=== PATIENT | female | born 1995 | race African-American/Black ===

== ENCOUNTER 2017-06-11 16:08 | Emergency (ER) | payer MEDICAID, SELFPAY ==
[2017-06-11 16:09] VITALS: BP 104/66; PULSE 62; RESP 16; TEMP 36.6; O2SAT 98; BMI 18.0
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
== END 2017-06-11 16:35 | disposition home or self-care (01) ==
LOC: ED 16:26
PROVIDERS: Emergency Provider Emergency Medicine
DX: S00.411A Abrasion of right ear, initial encounter (principal); H92.01 Otalgia, right ear; X58.XXXA Exposure to other specified factors, initial encounter; Y93.84 Activity, sleeping; Y92.009 Unspecified place in unspecified non-institutional (private) residence as the place of occurrence of the external cause; Y99.8 Other external cause status
CPT/HCPCS: 99282

== ENCOUNTER 2017-07-26 19:34 | Emergency (ER) | payer MEDICAID, SELFPAY ==
[2017-07-26 19:36] VITALS: BP 155/76; PULSE 91; RESP 15; TEMP 36.6; O2SAT 99; BMI 18.5
== END 2017-07-26 21:39 | disposition left against medical advice (07) ==
LOC: ED 20:53
PROVIDERS: Emergency Provider Emergency Medicine
DX: R42 Dizziness and giddiness (principal)

== ENCOUNTER 2017-09-04 01:07 | Emergency (ER) | payer MEDICAID, SELFPAY ==
[2017-09-04 01:09] VITALS: BP 131/86; PULSE 106; RESP 16; TEMP 36.5; O2SAT 100; BMI 16.8
--- NOTE | 2017-09-04 01:36 | ED.VISSUMM ---
- ER Visit Summary Date of Service: 09/04/17 Chief Complaint: Anxiety History of Present Illness: The patient is a 22 F who presents with anxiety. She complains of stress and has been more anxious over the past 3 days. She states I feel like I am going to have a panic attack. She also states that she has been smoking more the past few days. She complains of a little bit of a sore throat but believes that this may be related to her increased smoking. She is also concerned that she may be dehydrated. She denies any vomiting or diarrhea. Physical Examination: Afebrile vitals are unremarkable Heart regular rate and rhythm Lungs are clear Oropharynx is clear Mucous membranes are moist Test Results: Not indicated Emergency Department Course and Treatment: She does not appear clinically significantly dehydrated. I do not believe she needs an IV or fluids. No vomiting or diarrhea. Her oropharynx is clear. She has no tonsillar enlargement or exudates no uvular deviation she does not have fever or lymphadenopathy. I do not believe this is due to streptococcal pharyngitis. She was given a prescription for Vistaril and referred to the counseling center. She was discharged. Treatment Plan: [] Disposition: Discharge Impression: Anxiety Sore throat This note was generated with [employer] dictation software. It may contain incorrect words, spelling, and punctuation that were not noted in review of the chart prior to signing ED Disposition - Plan for ED Patient: Chief Complaint: Anxiety Referrals: Ethan Valderrama MD [Primary Care Provider] -
--- NOTE | 2017-09-04 01:38 | ED.DEP ---
ED Disposition - Plan for ED Patient: Chief Complaint: Anxiety Instructions: ED Stress React Prescriptions: hydrOXYzine pamoate capsule [Vistaril] 50 mg PO TID PRN PRN #30 cap PRN Reason: Anxiety Referrals: Ethan Valderrama MD [Primary Care Provider] -
--- NOTE | 2017-09-04 01:45 | ED.DEP ---
ED Disposition - Plan for ED Patient: Chief Complaint: Anxiety Instructions: ED Stress React Prescriptions: hydrOXYzine pamoate capsule [Vistaril] 50 mg PO TID PRN PRN #30 cap PRN Reason: Anxiety Referrals: Ethan Valderrama MD [Primary Care Provider] - Counseling,Center [GROUP OF PHYSICIANS] -
[2017-09-04 01:50] VITALS: RESP 18
== END 2017-09-04 01:47 | disposition home or self-care (01) ==
PROVIDERS: Emergency Provider Emergency Medicine; Family Provider Family Medicine; PCP Family Medicine
DX: F41.9 Anxiety disorder, unspecified (principal); J02.9 Acute pharyngitis, unspecified; F17.200 Nicotine dependence, unspecified, uncomplicated; Z11.3 Encounter for screening for infections with a predominantly sexual mode of transmission
CPT/HCPCS: 87491; 87591; 99282

== ENCOUNTER → 2017-09-04 15:05 | Outpatient (CLI) | payer MEDICAID, SELFPAY ==
[2017-09-04 17:36] LABS: Chlamydia Trachomatis by PCR Negative (Negative); Neisserai gonorrhoeae by PCR Negative (Negative); Probe Check PASS; Sample Adequacy Control PASS; Specimen Processing Control PASS
== END ==
PROVIDERS: Visit Provider Obstetrics & Gynecology
DX: Z11.3 Encounter for screening for infections with a predominantly sexual mode of transmission (principal)
CPT/HCPCS: 87491; 87591

== ENCOUNTER → 2017-12-04 13:49 | Outpatient (CLI) | payer MEDICAID, SELFPAY ==
[2017-12-04 17:41] LABS: Chlamydia Trachomatis by PCR Negative (Negative); Neisserai gonorrhoeae by PCR Negative (Negative); Probe Check PASS; Sample Adequacy Control PASS; Specimen Processing Control PASS
== END ==
PROVIDERS: Visit Provider Obstetrics & Gynecology
DX: Z11.3 Encounter for screening for infections with a predominantly sexual mode of transmission (principal)
CPT/HCPCS: 87491; 87591

== ENCOUNTER → 2018-02-06 13:23 | Outpatient (CLI) | payer MEDICAID, SELFPAY ==
[2018-02-12 11:34] LABS: HPV APTIMA, High Risk Negative (Negative)
== END ==
PROVIDERS: Visit Provider Obstetrics & Gynecology
DX: Z12.4 Encounter for screening for malignant neoplasm of cervix (principal)
CPT/HCPCS: 88175; G0145

== ENCOUNTER → 2018-03-20 13:06 | Outpatient (CLI) | payer MEDICAID, SELFPAY ==
[2018-03-20 15:46] LABS: Hematocrit 32.9 % (37-47); Hemoglobin 10.9 g/dl (12.0-15.0); Mean Corp Hgb Conc 33.1 g/gl (32-36); Mean Corpuscular Hgb 28.6 pg (27.0-32.0); Mean Corpuscular Volume 86.4 fL (81-99); Mean Platelet Vol. 11.1 fl (6.2-12.0); Platelet Count 219 K/mm3 (150-450); RBC Distribution Width CV 12.9 % (11.6-14.6); RBC Distribution Width SD 41.4 fl (35.1-43.9); Red Blood Count 3.81 M/mm3 (4.2-5.4); White Blood Count 7.7 K/mm3 (4.4-11.0)
[2018-03-20 15:47] LABS: Scan Indicated on CBC? Y/N NO
== END ==
PROVIDERS: Visit Provider Obstetrics & Gynecology
DX: N93.9 Abnormal uterine and vaginal bleeding, unspecified (principal)
CPT/HCPCS: 36415; 84443; 85027

== ENCOUNTER 2018-04-12 06:42 | Emergency (ER) | payer MEDICAID, SELFPAY ==
[2018-04-12 06:43] VITALS: BP 132/79; PULSE 105; RESP 18; TEMP 36.6; O2SAT 100; BMI 18.7
--- NOTE | 2018-04-12 06:51 | US_ITS ---
STUDY: ULTRASOUND OF THE FEMALE PELVIS - COMPLETE REASON FOR EXAM: Female, 23 years old. Left lower quadrant pain TECHNIQUE: Transvaginal TECHNICAL QUALITY: Adequate. COMPARISON: None. FINDINGS: The uterus is retroverted and is in a midline position. The uterus measures 7.4 x 5.3 x 4.1 cm. Normal uterine cervix. The endometrium measures 2 mm in thickness, and is hyperechoic. There is no demonstrated endometrial mass. There is no demonstrated myometrial mass. The right ovary is visualized. The right ovary measures 4.7 x 3.0 x 2.5 cm. There are multiple follicles of the right ovary without a dominant cyst. There is no visualized right adnexal mass or complex lesion. There is normal arterial and normal venous vascularity. The left ovary is visualized. The left ovary measures 4.8 x 2.8 x 2.7 cm. There are multiple follicles of the left ovary without a dominant cyst. There is no visualized left adnexal mass or complex lesion. There is normal arterial and normal venous vascularity. There is no fluid in the cul-de-sac. US/Transvaginal Non- IMPRESSION: Multiple bilateral peripheral ovarian follicles. This can be seen with polycystic ovarian syndrome and clinical correlation is recommended. Normal Doppler flow demonstrated to both ovaries. Normal uterus. Electronically Signed: Yimi Castro, at 8:14 EST Tel , Service support ,
--- NOTE | 2018-04-12 06:58 | ED.DCSUM_ITS ---
- ER Visit Summary Date of Service: 04/12/18 Chief Complaint: Pain History of Present Illness: The patient is a 23 F with left-sided pelvic pain. Pain started over a week ago. It started on the right and then moved to the left. It feels cramping at times and sharp at other times. She had some recent irregular and heavy bleeding. She took some ibuprofen recently but had no improvement. She has not tried anything else. She had similar symptoms in the past with ovarian cyst. She is planning to follow-up with her OB, Dr. May in about 5 days. Denies any urinary symptoms. Denies any other DIRECTOR TELEVISION symptoms. Denies any GI symptoms. Physical Examination: Afebrile and vital signs unremarkable except for heart rate of 105. She appears comfortable and in no acute distress. Alert and oriented. Abdomen is tender in left pelvic area. No guarding or rebound. No other abnormal findings on exam. Test Results: We will check labs, urine, ultrasound. Emergency Department Course and Treatment: Patient treated with Toradol while awaiting results. Hemoglobin 8.2, down over 2 points in less than a month. BMP normal. Urinalysis unremarkable. test negative. Ultrasound showed a normal uterus and findings consistent with PCOS. I believe that her pain is from ovarian cysts. Patient will be treated with anti-inflammatories. I am concerned about her anemia. She is not currently bleeding, but she said she had vaginal bleeding for most of February until . She had some spotting a couple days ago but is not currently bleeding. Her doctor had told her that if she had continued bleeding she would need a D&C. I spoke with Dr. Logan who was vocational rehabilitation specialist. The patient will follow-up as an outpatient for further care. Return for any symptoms or further bleeding. Treatment Plan: As above Disposition: Discharge Impression: 1. Ovarian cysts 2. Anemia This note was generated with [employer] dictation software. It may contain incorrect words, spelling, and punctuation that were not noted in review of the chart prior to signing ED Disposition - Plan for ED Patient: Chief Complaint: Abd Pain Referrals: Ethan Valderrama MD [STAFF PHYSICIAN] -
[2018-04-12] MEDS: Ketorolac 30 MG/ML Syringe IV (07:06)
[2018-04-12 07:17] LABS: Absolute Lymphocyte Count 2.15 X10^3/ul (0.83-4.51); Absolute Neutrophil Count 3.5 X10^3/uL (2.0-7.7); Basophil# 0.04 X10^3/uL; Basophil% 0.6 % (0-1); Eosinophil# 0.09 X10^3/uL; Eosinophils% 1.4 % (0-5); Hematocrit 25.6 % (37-47); Hemoglobin 8.2 g/dl (12.0-15.0); Lymphocyte # 2.15 X10^3/ul (4.0); Lymphocyte % 34.2 % (19-41); Mean Corpuscular Hgb 24.6 pg (27.0-32.0); Mean Corpuscular Volume 76.9 fL (81-99); Mean Platelet Vol. 8.8 fl (6.2-12.0); Monocyte# 0.52 X10^3/uL; Monocyte% 8.3 % (0-10); Neutrophil # 3.49 X10^3/uL (2.7-7.7); Neutrophil % 55.5 % (47-70); Platelet Count 316 K/mm3 (150-450); RBC Distribution Width CV 16.2 % (11.6-14.6); RBC Distribution Width SD 45.4 fl (35.1-43.9); Red Blood Count 3.33 M/mm3 (4.2-5.4); White Blood Count 6.3 K/mm3 (4.4-11.0)
[2018-04-12 07:18] LABS: POSITIVE COUNT NO; POSITIVE DIFFERENTIAL NO; POSITIVE MORPHOLOGY NO
[2018-04-12 07:25] LABS: Bacteria 0 SEEN /hpf (None Seen); Mucous, Urine 0 SEEN /hpf (<or=2+)
[2018-04-12 07:27] LABS: Anion Gap 8 (5-15); BUN 8 mg/dL (7-18); Calcium,Total 8.5 mg/dL (8.5-10.1); Chloride 109 mmol/L (98-107); Creatinine, Serum 0.88 mg/dL (0.55-1.02); EST Glomerular Filtration Rate 84 mL/min (>60); Est Glom Filt Rate - Afr Amer 102 mL/min (>60); Estimated Creatinine Clearance 77.85 ml/min; Glucose 106 mg/dL (74-106); Potassium 3.7 mmol/L (3.5-5.1); Sodium Level 142 mmol/L (136-145)
[2018-04-12 07:42] LABS: Pregnancy, Serum, hCG Quali. NEGATIVE Negative (0-9 Nonpreg)
[2018-04-12 08:07] LABS: Color, Urine Yellow (Yellow); Glucose, Dipstick Normal (Normal); Ketone-Dipstick Negative (Negative); Leukocyte Esterase-Dipstick 25 /ul (Negative); Nitrite-Dipstick Negative (Negative); Occult Blood-Urine Negative /ul (Negative); Protein-Dipstick 15 mg/dl (Negative); Urine Bilirubin Dipstick Negative (Negative); Urine Clarity Sl. Cloudy (Clear); Urine Urobilinogen Normal (Normal)
[2018-04-12 08:19] LABS: Red Blood Cells-Urine 0 SEEN /hpf (0-5); Squamous Epithelial Cells - UA 5-10 SEEN /hpf (5-10); White Blood Cells 0-5 SEEN /hpf (0-5)
[2018-04-12 09:01] VITALS: RESP 18
--- NOTE | 2018-04-12 09:05 | ED.DEP ---
ED Disposition - Plan for ED Patient: Chief Complaint: Abd Pain Instructions: ED Cyst Ovarian Prescriptions: Ondansetron [Zofran Odt] 4 mg PO Q8H PRN PRN #10 tab PRN Reason: Nausea Ibuprofen [Motrin] 800 mg PO TID PRN PRN #20 tab PRN Reason: Pain Referrals: Fabián May MD [STAFF PHYSICIAN] - Additional Instructions: call Dr. May Saturday. Return to ER for bleeding or any other problems.
--- OUTSIDE RECORDS SUMMARY | 2018-06-06 18:16 | XMS RPT_ITS ---
:1995 Author Organization OHIP Support Name Relationship Address Phone JHONNY GRANGER Unavailable Unavailable + UE Unavailable Unavailable Unavailable JHONNY GRANGER Unavailable Unavailable + UE Unavailable Unavailable Unavailable MICHAEL GRANGER Unavailable [address] + [place] [address] [employer] Unavailable [address] + [place] [address] DEREK GRANGER Unavailable [address] [facility] + [place] [address] MICHAEL GRANGER Unavailable [address] + [place] [address] [employer] Unavailable [address] + [place] [address] MICHAEL GRANGER Unavailable [address] + [place] [address] [employer] Unavailable [address] + [place] [address] MICHAEL GRANGER Unavailable [address] + [place] [address] [employer] Unavailable [address] + [place] [address] MICHAEL GRANGER Unavailable [address] + [place] [address] [employer] Unavailable [address] + [place] [address] MICHAEL GRANGER Unavailable [address] + [place] [address] [facility] Unavailable [address] + [place] [address] MICHAEL GRANGER Unavailable [address] + [place] [address] [facility] Unavailable [address] + [place] [address] MICHAEL GRANGER Unavailable [address] + [place] [address] UE Unavailable Unavailable Unavailable Care Team Providers Name Role Phone PHYSICIAN, NONE Primary Care Unavailable RADHA KIRK MD Attending Unavailable TIFFANY GONZALEZ, DR. DRAKE Attending Unavailable YADI GONZALEZ, DR. AMRCUS Primary Care Unavailable José Valderrama Primary Care Unavailable Dilshad Garza Attending Unavailable Josesito Stevenson Attending Unavailable Primay Care Physicia, No Primary Care Unavailable Primay Care Physicia, No Primary Care Unavailable Lino Hair Attending Unavailable Wilbur Spann Attending Unavailable José Valderrama Primary Care Unavailable Fabián May Attending Unavailable Fabián May Attending Unavailable Fabián May Attending Unavailable Fabián May Attending Unavailable Dilshad Muse Attending Unavailable Primay Care Physicia, No Primary Care Unavailable Fabián May Attending Unavailable PROBLEMS PROBLEMS DATE TYPE CONDITION / CODE ATTENDING STATUS SOURCE 04/14/2018 Unknown N92.6 - Irregular Fabián May Active [place] menstruation, Community unspecified / Hospital N92.6(ICD-10) Repository 02/06/2018 Unknown Z12.4 - Encounter Fabián May Active [place] for screening for Community malignant neoplasm Hospital of cervix / Repository Z12.4(ICD-10) 12/04/2017 Unknown Z11.3 - Encounter Fabián May Active [place] for screening for Community infections with a Hospital predominantly Repository sexual mode of transmission / Z11.3(ICD-10) PROCEDURES PROCEDURES No Procedure Records FoundRESULTS RESULTS CBC-COMPLETE BLOOD CNT Collected: 04/14/2018 Status: F Source: [place] NO DIFF 1:06 PM [facility] TYPE CODE TESTS RESULT OUT OF RANGE REFERENCE UNITS LAB L100.1000 4.4-11.0 K/mm3 Normal WBC 6.5 LAB L100.1200 4.2-5.4 M/mm3 Low RBC 3.03 LAB L100.1300 12.0-15.0 g/dl Low HGB 7.6 LAB L100.1400 37-47 % Low HCT 23.5 LAB L100.1500 81-99 fL Low MCV 77.6 LAB L100.1600 27.0-32.0 pg Low MCH 25.1 LAB L100.1700 32-36 g/gl Normal MCHC 32.3 LAB L100.1810 11.6-14.6 % High RDW CV 17.2 LAB L100.1820 35.1-43.9 fl High RDW SD 46.1 LAB L100.1900 150-450 K/mm3 Normal PLT 286 LAB L100.2000 6.2-12.0 fl Normal MPV 10.0 Performed By: #### L100.0500 #### [facility] [address] [place], [address] EMERGENCY DEPARTMENT Observed: 04/12/2018 Status: F Source: [place] SUMMARY 9:50 AM [facility] REPOSITORY [facility] Medical Records Department [address] [facility] [place] [address] Emergency Department Summary 04/12/18 0656 MR#: [id number] Acct: [id number] Name: MARLON GRANGER CK Rep #: [id number] : 1995 23 From: Dilshad Muse MD PCP: Care Physician, No Primary Status: DEP ER - ER Visit Summary Date of Service: 04/12/18 Chief Complaint: Pain History of Present Illness: The patient is a 23 F with left- sided pelvic pain. Pain started over a week ago. It started on the right and then moved to the left. It feels cramping at times and sharp at other times. She had some recent irregular and heavy bleeding. She took some ibuprofen recently but had no improvement. She has not tried anything else. She had similar symptoms in the past with ovarian cyst. She is planning to follow-up with her OB, Dr. May in about 5 days. Denies any urinary symptoms. Denies any other POT OPERATOR symptoms. Denies any GI symptoms. Physical Examination: Afebrile and vital signs unremarkable except for heart rate of 105. She appears comfortable and in no acute distress. Alert and oriented. Abdomen is tender in left pelvic area. No guarding or rebound. No other abnormal findings on exam. Test Results: We will check labs, urine, ultrasound. Emergency Department Course and Treatment: Patient treated with Toradol while awaiting results. Hemoglobin 8.2, down over 2 points in less than a month. BMP normal. Urinalysis unremarkable. test negative. Ultrasound showed a normal uterus and findings consistent with PCOS. I believe that her pain is from ovarian cysts. Patient will be treated with anti-inflammatories. I am concerned about her anemia. She is not currently bleeding, but she said she had vaginal bleeding for most of February until . She had some spotting a couple days ago but is not currently bleeding. Her doctor had told her that if she had continued bleeding she would need a D AND C. I spoke with Dr. Logan who was pressurization mechanic. The patient will follow-up as an outpatient for further care. Return for any symptoms or further bleeding. Treatment Plan: As above Disposition: Discharge Impression: 1. Ovarian cysts 2. Anemia This note was generated with Reveal Dataation software. It may contain incorrect words, spelling, and punctuation that were not noted in review of the chart prior to signing ED Disposition - Plan for ED Patient: Chief Complaint: Abd Pain Referrals: Ethan Valderrama MD [STAFF PHYSICIAN] - What to do if you have Problems For any increased pain, shortness of breath, bleeding, nausea or vomiting, chest pain, or any unexpected problems, contact your Primary Care Provider. Call [facility] ([phone]) or report to the closest Emergency Room. Call 911 if necessary. 04/12/18 0950 <Electronically signed by Dilshad Muse MD> Date Dilshad Muse MD Cosigner Signature (If Indicated): Date CC: No Primary Care Physician DISCHARGE INSTRUCTION Observed: 04/12/2018 Status: F Source: [place] 9:50 AM [facility] REPOSITORY [facility] Medical Records Department [address] [place] [address] Discharge Instruction 04/12/18 09 MR#: [id number] Acct: [id number] Name: GRANGERMARLON CK Rep #: [id number] : 1995 23 From: Dilshad Muse MD PCP: Care Physician, No Primary Status: DEP ER ED Disposition - Plan for ED Patient: Chief Complaint: Abd Pain Instructions: ED Cyst Ovarian Prescriptions: Ondansetron [Zofran Odt] 4 mg PO Q8H PRN PRN #10 tab PRN Reason: Nausea Ibuprofen [Motrin] 800 mg PO TID PRN PRN #20 tab PRN Reason: Pain Referrals: Fabián May MD [STAFF PHYSICIAN] - Additional Instructions: call Dr. May Saturday. Return to ER for bleeding or any other problems. What to do if you have Problems For any increased pain, shortness of breath, bleeding, nausea or vomiting, chest pain, or any unexpected problems, contact your Primary Care Provider. Call [facility] ([phone]) or report to the closest Emergency Room. Call 911 if necessary. 04/12/18 0950 <Electronically signed by Dilshad Muse MD> Date Dilshad Muse MD Cosigner Signature (If Indicated): Date CC: No Primary Care Physician URINALYSIS, COMPLETE Collected: 04/12/2018 Status: F Source: [place] 7:15 AM [facility] REPOSITORY Order Comment: How was Urine Obtained? CLEAN CATCH TYPE CODE TESTS RESULT OUT OF RANGE REFERENCE UNITS LAB L400.3000 Yellow COLOR Normal Yellow LAB L400.3050 Clear Normal CLARITY Sl. Cloudy LAB L400.3200 Normal mg/dl Normal GLUCOSE, UR Normal LAB L400.3300 Negative mg/dL Normal BILIRUBIN URINE Negative LAB L400.3400 Negative mg/dl Normal KETONE UR Negative LAB L400.3465 1.002-1.030 Normal SP.GR. DIPSTX 1.020 LAB L400.3550 5.0 - 8.0 pH UR Normal 5.0 LAB L400.3600 Negative mg/dl High PROT 15 DIPSTX LAB L400.3700 Normal mg/dl Normal UROBILI Normal LAB L400.3750 Negative Normal NITRITE UR Negative LAB L400.3780 Negative /ul Normal OCCULT BLOOD-UR Negative LAB L400.3800 Negative /ul High LEUK 25 ESTERASE LAB L400.4050 0-5 /hpf WBC Normal 0-5 SEEN LAB L400.4100 0-5 /hpf 0 Normal RBC-UA SEEN LAB L400.4150 5-10 /hpf SQUAM Normal EPI 5-10 SEEN LAB L400.4300 None Seen /hpf 0 Normal BACTERIA SEEN LAB L400.4350 <or=2+ /hpf 0 Normal MUCUS, URINE SEEN Performed By: #### L400.0001 #### [facility] [address] [place], [address] CBC W/DIFF, AUTOMATED Collected: 04/12/2018 Status: F Source: [place] 7:02 AM [facility] REPOSITORY TYPE CODE TESTS RESULT OUT OF RANGE REFERENCE UNITS LAB L100.1000 4.4-11.0 K/mm3 Normal WBC 6.3 LAB L100.1200 4.2-5.4 M/mm3 Low RBC 3.33 LAB L100.1300 12.0-15.0 g/dl Low HGB 8.2 LAB L100.1400 37-47 % Low HCT 25.6 LAB L100.1500 81-99 fL Low MCV 76.9 LAB L100.1600 27.0-32.0 pg Low MCH 24.6 LAB L100.1700 32-36 g/gl Normal MCHC 32.0 LAB L100.1810 11.6-14.6 % High RDW CV 16.2 LAB L100.1820 35.1-43.9 fl High RDW SD 45.4 LAB L100.1900 150-450 K/mm3 Normal PLT 316 LAB L100.2000 6.2-12.0 fl Normal MPV 8.8 LAB L100.2100 47-70 % Normal NEUT% 55.5 LAB L100.2200 19-41 % Normal LY% 34.2 LAB L100.2300 0-10 % Normal MONO% 8.3 LAB L100.2400 0-5 % Normal EO% 1.4 LAB L100.2500 0-1 % Normal BASO% 0.6 LAB L100.2550 0.0-0.9 % Normal IM GRAN % 0.000 Result Comment: IG% - Immature Granulocytes (promyelocytes, myelocytes and metamyelocytes) > 1% indicates that a LEFT SHIFT is Present. LAB L100.2620 2.0-7.7 X10 3/uL Normal Absolute Neut 3.5 LAB L100.2720 0.83-4.51 X10 3/ul Normal Absolute Lymph 2.15 Performed By: #### L100.0100 #### [facility] [address] [place], [address] BASIC METABOLIC Collected: 04/12/2018 Status: F Source: [place] PROFILE (BMP) 7:02 AM [facility] REPOSITORY TYPE CODE TESTS RESULT OUT OF RANGE REFERENCE UNITS LAB L501.0100 74-106 mg/dL Normal GLU 106 Result Comment: Fasting Glucose result from 100 to 125 mg/dL suggests IMPAIRED HOMEOSTASIS per A.D.A. criteria. Please note revised GLUCOSE reference range effective 2017. LAB L501.1000 7-18 mg/dL Normal BUN 8 LAB L501.1100 0.55-1.02 mg/dL Normal CREAT,SERUM 0.88 Result Comment: The validity of the calculated GFR AND GFRAA in patients over 70 years has not been determined. Clinical correlation is essential. LAB L501.1110 >60 mL/min Normal EST GFR 84 Result Comment: Non- GFR Calc LAB L501.1115 >60 mL/min Normal EST GFR - AA 102 Result Comment: GFR Calc LAB L501.1255 ml/min Normal Estimated CRCL 77.85 LAB L501.1300 10-20 RATIO Low BUN/CRE 9.0 LAB L501.2200 8.5-10 mg/dL Normal .1 CA 8.5 LAB L501.5300 136-14 mmol/L Normal 5 NA 142 LAB L501.5600 3.5-5. mmol/L Normal 1 K 3.7 LAB L501.5900 98-107 mmol/L High CL 109 LAB L501.6100 21.0-3 mmol/L Normal 2.0 CO2 25.0 LAB L501.6200 5-15 Normal GAP 8 Performed By: #### L500.2500 #### [facility] [address] [place], [address] ,SERUM,HCG QUALI. Collected: Status: F Source: [place] 04/12/2018 7:02 AM [facility] REPOSITORY TYPE CODE TESTS RESULT OUT OF REFERENCE UNITS RANGE LAB L700.7000 0-9 Nonpreg Negative Normal HCGSQUAL NEGATIVE LAB L700.6700 =>Qualitative mIU/mL Normal HCG Qual < 1 triggr Performed By: #### L700.6800 #### [facility] [address] [place], [address] TRANSVAGINAL Observed: 04/12/2018 Status: F Source: [place] NON- 6:54 AM [facility] REPOSITORY [facility] Imaging Services [address] [place] [address] Transvaginal Non- MR#: [id number] Acct: [id number] Name: MARLON GRANGER CK Rep #: [id number] : 1995 F 23 From: Yimi Castro MD PCP: Care Physician, No Primary Status: REG ER Study: Transvaginal Non- Date of Exam: 04/12/18 Exam# [id number] Ordering Dr: Dilshad Muse MD STUDY: ULTRASOUND OF THE FEMALE PELVIS - COMPLETE REASON FOR EXAM: Female, 23 years old. Left lower quadrant pain TECHNIQUE: Transvaginal TECHNICAL QUALITY: Adequate. COMPARISON: None. FINDINGS: The uterus is retroverted and is in a midline position. The uterus measures 7.4 x 5.3 x 4.1 cm. Normal uterine cervix. The endometrium measures 2 mm in thickness, and is hyperechoic. There is no demonstrated endometrial mass. There is no demonstrated myometrial mass. The right ovary is visualized. The right ovary measures 4.7 x 3.0 x 2.5 cm. There are multiple follicles of the right ovary without a dominant cyst. There is no visualized right adnexal mass or complex lesion. There is normal arterial and normal venous vascularity. The left ovary is visualized. The left ovary measures 4.8 x 2.8 x 2.7 cm. There are multiple follicles of the left ovary without a dominant cyst. There is no visualized left adnexal mass or complex lesion. There is normal arterial and normal venous vascularity. There is no fluid in the cul-de-sac. US/Transvaginal Non- IMPRESSION: Multiple bilateral peripheral ovarian follicles. This can be seen with polycystic ovarian syndrome and clinical correlation is recommended. Normal Doppler flow demonstrated to both ovaries. Normal uterus. Electronically Signed: Yimi Castro, at 8:14 EST Tel , Service support , CC: No Primary Care Physician; Dilshad Muse MD Risk Analyst: Signed CBC-COMPLETE BLOOD CNT Collected: 03/20/2018 Status: F Source: [place] NO DIFF 1:08 PM [facility] REPOSITORY TYPE CODE TESTS RESULT OUT OF RANGE REFERENCE UNITS LAB L100.1000 4.4-11.0 K/mm3 Normal WBC 7.7 LAB L100.1200 4.2-5.4 M/mm3 Low RBC 3.81 LAB L100.1300 12.0-15.0 g/dl Low HGB 10.9 LAB L100.1400 37-47 % Low HCT 32.9 LAB L100.1500 81-99 fL Normal MCV 86.4 LAB L100.1600 27.0-32.0 pg Normal MCH 28.6 LAB L100.1700 32-36 g/gl Normal MCHC 33.1 LAB L100.1810 11.6-14.6 % Normal RDW CV 12.9 LAB L100.1820 35.1-43.9 fl Normal RDW SD 41.4 LAB L100.1900 150-450 K/mm3 Normal PLT 219 LAB L100.2000 6.2-12.0 fl Normal MPV 11.1 Performed By: #### L100.0500 #### [facility] [address] [place], [address] THYROID STIM HORMONE Collected: 03/20/2018 Status: F Source: [place] (TSH) 1:08 PM [facility] REPOSITORY TYPE CODE TESTS RESULT OUT OF RANGE REFERENCE UNITS LAB L501.9520 0.358-3.74 uIU/mL Normal TSH 1.10 Performed By: #### L501.9520 #### [facility] [address] [place], [address] CTPCR Collected: 03/18/2018 Status: F Source: [facility] 6:48 PM [facility] REPOSITORY TYPE CODE TESTS RESULT OUT OF REFERENCE UNITS RANGE LAB SCCTPCR(SAM NC) Chlam Genital Female Source LAB CTPCR1(LOIN Negative C) Negative C.trachomati s PCR Result Comment: Molecular (PCR) assay performed on the Ritchie Natalia 4800 system. LAB CTINT(LOINC) See CT Interp N C. trachomatis Interp Result Comment: C. trachomatis DNA not detected. Specimen is presumptive negative for C. trachomatis. A negative result does not preclude C. trachomatis infection because results depend on adequate specimen collection, absence of inhibitors, and sufficient DNA to be detected. See CT Interp N Performed By: #### NGPCR1, CTPCR #### [place] [address] NGPCR Collected: 03/18/2018 Status: F Source: [facility] 6:48 PM [facility] REPOSITORY TYPE CODE TESTS RESULT OUT OF REFERENCE UNITS RANGE LAB GCSRC(LOIN C) GC PCR Source Genital Female LAB NGPCR(LOIN Negative C) N. gonorrhoeae (PCR) Negative Result Comment: Molecular (PCR) assay performed on the [employer] Natalia 4800 System. LAB NGINT(LOINC) See NG Interp N N. gonorrhoeae Interp Result Comment: N. gonorrhoeae DNA not detected. Specimen is presumptive negative for N. gonorrhoeae. A negative result does not preclude Neisseria gonorrhoeae infection because results depend on adequate specimen collection, absence of inhibitors, and sufficient DNA to be detected. See NG Interp N Performed By: #### NGPCR1, CTPCR #### [place] [address] UA Collected: 03/18/2018 Status: F Source: [facility] 6:25 PM [facility] REPOSITORY TYPE CODE TESTS RESULT OUT OF RANGE REFERENCE UNITS LAB SPCUA(SAM NC) UA Specimen Type Clean Catch LAB CLRUA(SAM NC) UA Color Yellow LAB APPUA(SAM Clear NC) UA Appear Unknown Cloudy LAB SGUA(LOIN C) UA Spec Grav 1.025 LAB GLUA(LOIN Negative mg/dL C) UA Glucose Negative LAB BILUA(SAM Negative NC) UA Bili Negative LAB KETUA(SAM Negative mg/dL NC) UA Ketones Negative LAB BLDUA(SAM Negative NC) UA Blood Unknown Large LAB PHUA(LOIN C) UA pH 6.0 LAB PROUA(SAM Negative mg/dL NC) UA Protein Negative LAB UROUA(SAM E.U./dL NC) UA Urobilinogen 0.2 LAB NITUA(SAM Negative NC) UA Nitrite Negative LAB LEUUA(SAM Negative NC) UA Leuk Est Negative Performed By: #### UA, PREGU, UAMICAO #### [address] [address] .URINALYSIS MICROSCOPIC Collected: 03/18/2018 Status: F Source: [facility] [employer] 6:25 [facility] REPOSITORY TYPE CODE TESTS RESULT OUT OF RANGE REFERENCE UNITS LAB WBCUA(LOIN None Seen /hpf C) UA WBC None Seen LAB RBCUA(LOIN None Seen /hpf C) Unknown UA RBC LOADED LAB EPIUA(LOIN None Seen /hpf C) Unknown UA Squam Epithelial 0-5 Performed By: #### UA, PREGU, UAMICAO #### [address] [address] PREGU Collected: 03/18/2018 Status: F Source: [facility] 6:25 [facility] REPOSITORY TYPE CODE TESTS RESULT OUT OF RANGE REFERENCE UNITS LAB PREGU(LOIN C) Test Negative Urine LAB PRUG1(LOIN C) Unknown test HCG not (u) int detected. Performed By: #### UA, PREGU, UAMICAO #### [address] [address] PAP IG HPV HR Collected: 02/06/2018 Status: F Source: [place] APTIMA 11:45 AM [facility] REPOSITORY Order Comment: CYTOLOGY INFORMATION: - CLINICAL INFORMATION: - DATE LMP/MENOPAUSE: 01/03/18 LMP - COLLECTION VIAL: Thin Prep Vial - POT OPERATOR SOURCE: CERVICAL/ENDOCERVICAL - COLLECTION TECHNIQUE: BRUSH/SPATULA Specimen Comment: [id number] Specimen Comment: Source.............Cervix;Endocervix Specimen Comment: LMP / Prev Treat...[id number] Specimen Comment: No. of containers..01 ThinPrep Vial TYPE CODE TESTS RESULT OUT OF REFERENCE UNITS RANGE LAB L7400.0800 . High DIAGN Comment Result Comment: EPITHELIAL CELL ABNORMALITY. ATYPICAL SQUAMOUS CELLS OF UNDETERMINED SIGNIFICANCE. LAB L7400.0900 . Normal ADEQ Comment Result Comment: Satisfactory for evaluation. Endocervical and/or squamous metaplastic cells (endocervical component) are present. LAB L7400.1300 . High RECOMM Comment Result Comment: Suggest follow up as clinically appropriate. LAB L7400.1400 . Normal PERFORM Comment Result Comment: Albert Mayers, Spindle Plumber (ASCP) LAB L7400.1700 . Normal SIGN Comment Result Comment: Milo Morrison MD, Pathologist LAB L7400.1720 . Normal Path prov. Comment ICD9 Result Comment: R87.610 LAB L7400.2575 . Normal TEST METHOD Comment Result Comment: This liquid based ThinPrep(R) pap test was screened with the use of an image guided system. LAB L7400.2600 . Normal . COMM LAB L7400.2700 . Normal PAPSMR Comment Result Comment: The Pap smear is a screening test designed to aid in the detection of premalignant and malignant conditions of the uterine cervix. It is not a diagnostic procedure and should not be used as the sole means of detecting cervical cancer. Both false-positive and false-negative reports do occur. LAB L7400.2760 Negative Normal HPV APTIMA, Negative HR Result Comment: This test detects fourteen high-risk HPV types (16/18/31/33/35/39/45/ 51/52/56/58/59/66/68) without differentiation. Performed at: [address] [id number] Software Design Analyst: Sultana Church MD, Phone: [phone] Performed at: =[address] [id number] Software Design Analyst: Sultana Church MD, Phone: [phone] Performed By: #### L7400.0377 #### [facility] (refer to report for specific site) refer to report for address and phone number CT/NG [facility] BY PCR Collected: 12/04/2017 Status: F Source: [place] 10:20 AM [facility] REPOSITORY TYPE CODE TESTS RESULT OUT OF RANGE REFERENCE UNITS LAB L8200.2100 Negative Normal Chlam Negative Trac PCR LAB L8200.2200 Negative Normal NG by Negative PCR Performed By: #### L8200.1999 #### [facility] [address] [place], [place], [address] CT/NG [facility] BY PCR Collected: 09/04/2017 Status: F Source: [place] 2:35 PM [facility] REPOSITORY TYPE CODE TESTS RESULT OUT OF RANGE REFERENCE UNITS LAB L8200.2100 Negative Normal Chlam Negative Trac PCR LAB L8200.2200 Negative Normal NG by Negative PCR Performed By: #### L8200.1999 #### [facility] [place], [address] DISCHARGE INSTRUCTION Observed: 09/04/2017 Status: F Source: [place] 1:46 AM [facility] Medical Records Department [address] [place] [address] Discharge Instruction 09/04/17 0145 MR#: [id number] Acct: [id number] Name: MARLON GRANGER CK Rep #: [id number] : 1995 22 From: Wilbur Spann MD PCP: José Valderrama MD Status: REG ER ED Disposition - Plan for ED Patient: Chief Complaint: Anxiety Instructions: ED Stress React Prescriptions: hydrOXYzine pamoate capsule [Vistaril] 50 mg PO TID PRN PRN #30 cap PRN Reason: Anxiety Referrals: Ethan Valderrama MD [Primary Care Provider] - Counseling,Center [GROUP OF PHYSICIANS] - What to do if you have Problems For any increased pain, shortness of breath, bleeding, nausea or vomiting, chest pain, or any unexpected problems, contact your Primary Care Provider. Call [facility] ([phone]) or report to the closest Emergency Room. Call 911 if necessary. 09/04/17 0146 <Electronically signed by Wilbur Spann MD> Date Wilbur Spann MD Cosigner Signature (If Indicated): Date CC: José Valderrama MD EMERGENCY DEPARTMENT Observed: 09/04/2017 Status: F Source: [place] SUMMARY 1:38 AM [facility] REPOSITORY [facility] Medical Records Department [address] [place] [address] Emergency Department Summary 09/04/17 0136 MR#: [id number] Acct: [id number] Name: MARLON GRANGER Rep #: [id number] : 1995 22 From: Wilbur Spann MD PCP: José Valderrama MD Status: PRE ER - ER Visit Summary Date of Service: 09/04/17 Chief Complaint: Anxiety History of Present Illness: The patient is a 22 F who presents with anxiety. She complains of stress and has been more anxious over the past 3 days. She states I feel like I am going to have a panic attack. She also states that she has been smoking more the past few days. She complains of a little bit of a sore throat but believes that this may be related to her increased smoking. She is also concerned that she may be dehydrated. She denies any vomiting or diarrhea. Physical Examination: Afebrile vitals are unremarkable Heart regular rate and rhythm Lungs are clear Oropharynx is clear Mucous membranes are moist Test Results: Not indicated Emergency Department Course and Treatment: She does not appear clinically significantly dehydrated. I do not believe she needs an IV or fluids. No vomiting or diarrhea. Her oropharynx is clear. She has no tonsillar enlargement or exudates no uvular deviation she does not have fever or lymphadenopathy. I do not believe this is due to streptococcal pharyngitis. She was given a prescription for Vistaril and referred to the counseling center. She was discharged. Treatment Plan: [] Disposition: Discharge Impression: Anxiety Sore throat This note was generated with Nethub dictation software. It may contain incorrect words, spelling, and punctuation that were not noted in review of the chart prior to signing ED Disposition - Plan for ED Patient: Chief Complaint: Anxiety Referrals: Ethan Valderrama MD [Primary Care Provider] - What to do if you have Problems For any increased pain, shortness of breath, bleeding, nausea or vomiting, chest pain, or any unexpected problems, contact your Primary Care Provider. Call [facility] ([phone]) or report to the closest Emergency Room. Call 911 if necessary. 09/04/17137 <Electronically signed by Wilbur Spann MD> Date Wilbur Spann MD Cosigner Signature (If Indicated): Date CC: No Primary Care Physician; José Valderrama MD DISCHARGE INSTRUCTION Observed: 09/04/2017 Status: F Source: FOLSOM 1:38 AM [facility] REPOSITORY [facility] Medical Records Department [address] [facility] [place] [address] Discharge Instruction 09/04/17137 MR#: [id number] Acct: [id number] Name: GRANGERMARLON CK Rep #: [id number] : 1995 22 From: Wilbur Spann MD PCP: José Valderrama MD Status: REG ER ED Disposition - Plan for ED Patient: Chief Complaint: Anxiety Instructions: ED Stress React Prescriptions: hydrOXYzine pamoate capsule [Vistaril] 50 mg PO TID PRN PRN #30 cap PRN Reason: Anxiety Referrals: Ethan Valderrama MD [Primary Care Provider] - What to do if you have Problems For any increased pain, shortness of breath, bleeding, nausea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
== END 2018-04-12 09:40 | disposition home or self-care (01) ==
PROVIDERS: Emergency Provider Emergency Medicine
DX: N83.209 Unspecified ovarian cyst, unspecified side (principal); D64.9 Anemia, unspecified; Z72.0 Tobacco use; Z79.899 Other long term (current) drug therapy
CPT/HCPCS: 76830; 80048; 81001; 84703; 85025; 93976; 96374; 99283; A4216

== ENCOUNTER → 2018-04-14 09:45 | Outpatient (CLI) | payer MEDICAID, SELFPAY ==
[2018-04-12 06:43] VITALS: BMI 18.7
[2018-04-14 13:31] LABS: Hematocrit 23.5 % (37-47); Hemoglobin 7.6 g/dl (12.0-15.0); Mean Corp Hgb Conc 32.3 g/gl (32-36); Mean Corpuscular Hgb 25.1 pg (27.0-32.0); Mean Corpuscular Volume 77.6 fL (81-99); Platelet Count 286 K/mm3 (150-450); RBC Distribution Width CV 17.2 % (11.6-14.6); RBC Distribution Width SD 46.1 fl (35.1-43.9); Red Blood Count 3.03 M/mm3 (4.2-5.4); White Blood Count 6.5 K/mm3 (4.4-11.0)
[2018-04-14 13:32] LABS: Scan Indicated on CBC? Y/N NO
--- OUTSIDE RECORDS SUMMARY | 2018-06-07 14:22 | XMS RPT_ITS ---
:1995 Author Organization OHIP Support Name Relationship Address Phone JHONNY GRANGER Unavailable Unavailable + UE Unavailable Unavailable Unavailable JHONNY GRANGER Unavailable Unavailable + UE Unavailable Unavailable Unavailable MICHAEL GRANGER Unavailable [address] + [place] [address] [employer] Unavailable [address] + [place] [address] DEREK GRANGER Unavailable [address] [facility] + [place] [address] MICHAEL GRANGER Unavailable [address] + [place] [address] [employer] Unavailable [address] + [place] [address] MICHAEL GRANGER Unavailable [address] + [place] [address] [employer] Unavailable [address] + [place] [address] MICHAEL GRANGER Unavailable [address] + [place] [address] [employer] Unavailable [address] + [place] [address] MICHAEL GRANGER Unavailable [address] + [place] [address] [employer] Unavailable [address] + [place] [address] MICHAEL GRANGER Unavailable [address] + [place] [address] [facility] Unavailable [address] + [place] [address] MICHAEL GRANGER Unavailable [address] + [place] [address] [facility] Unavailable [address] + [place] [address] GRANGERMICHAEL Unavailable [address] + [place] [address] UE Unavailable Unavailable Unavailable Care Team Providers Name Role Phone REAGAN ANDRES, RADHA Morrow Attending Unavailable PHYSICIAN, NONE Primary Care Unavailable TIFFANY GONZALEZ, DR. DRAKE Attending Unavailable YADI GONZALEZ, DR. MARCUS Primary Care Unavailable José Valderrama Primary Care [...] Unknown N92.6 - Irregular Fabián May Active [place] menstruation, Community unspecified / Hospital N92.6(ICD-10) Repository [...] MPV 10.0 Performed By: #### L100.0500 #### [facility] [address] [place], [address] EMERGENCY DEPARTMENT Observed: 04/12/2018 Status: F Source: [place] SUMMARY 9:50 AM [facility] [place] [facility] Medical Records Department [address] [facility] [place] [address] Emergency Department Summary 04/12/18 0656 MR#: [id number] Acct: [id number] Name: MARLON GRANGER CK Rep #: [id number] : 1995 23 From: Dilshad Muse MD [...] Denies any urinary symptoms. 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 Denies any GI symptoms. Physical Examination: [...] I spoke with Dr. Logan who was applications coordinator. The patient will follow-up as an outpatient for further care. Return for any symptoms or further bleeding. Treatment Plan: As above Disposition: Discharge Impression: 1. Ovarian cysts 2. Anemia This note was generated with MOOIation software. It may contain incorrect words, spelling, [...] your Primary Care Provider. Call [facility] ([phone]) or report to the closest Emergency Room. Call 911 if necessary. 04/12/18 0950 <Electronically signed by Dilshad Muse MD> Date Dilshad Muse MD Cosigner Signature (If Indicated): Date CC: No Primary Care Physician DISCHARGE INSTRUCTION Observed: 04/12/2018 Status: F Source: [place] 9:50 AM [facility] [place] [facility] Medical Records Department [address] [place] [address] Discharge Instruction 04/12/18 09 MR#: [id number] Acct: [id number] Name: GRANGERMARLON CK Rep #: [id number] : 1995 23 From: Dilshad Muse MD [...] your Primary Care Provider. Call [facility] ([phone]) or report to the closest Emergency Room. Call 911 if necessary. 04/12/18 0950 <Electronically signed by Dilshad Muse MD> Date Dilshad Muse MD Cosigner Signature (If Indicated): Date CC: No Primary Care Physician URINALYSIS, COMPLETE Collected: 04/12/2018 Status: F Source: [place] 7:15 AM [facility] [place] Order Comment: How was Urine Obtained? [...] URINE SEEN Performed By: #### L400.0001 #### [facility] [address] [place], [address] CBC W/DIFF, AUTOMATED Collected: 04/12/2018 Status: F Source: [place] 7:02 AM [facility] [place] TYPE CODE TESTS RESULT OUT OF [...] Lymph 2.15 Performed By: #### L100.0100 #### [facility] [address] [facility], [address] BASIC METABOLIC Collected: 04/12/2018 Status: F Source: [place] PROFILE (BMP) 7:02 AM [facility] [place] TYPE CODE TESTS RESULT OUT OF [...] GAP 8 Performed By: #### L500.2500 #### [facility] [address] [place], [address] ,SERUM,HCG QUALI. Collected: Status: F Source: [place] 04/12/2018 7:02 AM [facility] [place] TYPE CODE TESTS RESULT OUT OF REFERENCE UNITS RANGE LAB L700.7000 0-9 Nonpreg Negative Normal HCGSQUAL NEGATIVE LAB L700.6700 =>Qualitative mIU/mL Normal HCG Qual < 1 triggr Performed By: #### L700.6800 #### [facility] [address] [place], [address] TRANSVAGINAL Observed: 04/12/2018 Status: F Source: [place] NON- 6:54 AM [facility] [place] [facility] Imaging Services [address] [place] [address] Transvaginal Non- MR#: [id number] Acct: [id number] Name: MARLON GRANGER CK Rep #: [id number] : 1995 F 23 From: Yimi Castro MD PCP: Care Physician, No Primary Status: REG ER Study: Transvaginal Non- Date of Exam: 04/12/18 Exam# [id number] Ordering Dr: Dilshad Muse MD STUDY: ULTRASOUND [...] No Primary Care Physician; Dilshad Muse MD Psychology Intern: Signed CBC-COMPLETE BLOOD CNT Collected: 03/20/2018 Status: F Source: [place] NO DIFF 1:08 PM [facility] [place] TYPE CODE TESTS RESULT OUT OF [...] MPV 11.1 Performed By: #### L100.0500 #### [facility] [address] [place], [address] THYROID STIM HORMONE Collected: 03/20/2018 Status: F Source: [place] (TSH) 1:08 PM [facility] [place] TYPE CODE TESTS RESULT OUT OF RANGE REFERENCE UNITS LAB L501.9520 0.358-3.74 uIU/mL Normal TSH 1.10 Performed By: #### L501.9520 #### [facility] [address] [place], [address] CTPCR Collected: 03/18/2018 Status: F Source: [facility] 6:48 PM [facility] REPOSITORY TYPE CODE TESTS RESULT OUT OF [...] N Performed By: #### NGPCR1, CTPCR #### [place] [address] NGPCR Collected: 03/18/2018 Status: F Source: [facility] 6:48 PM [facility] REPOSITORY TYPE CODE TESTS RESULT OUT OF [...] N Performed By: #### NGPCR1, CTPCR #### [place] [address] UA Collected: 03/18/2018 Status: F Source: [facility] 6:25 PM [facility] REPOSITORY TYPE CODE TESTS RESULT OUT OF [...] Performed By: #### UA, PREGU, UAMICAO #### [address] [address] .URINALYSIS MICROSCOPIC Collected: 03/18/2018 Status: F Source: [facility] [employer] 6:25 [facility] REPOSITORY TYPE CODE TESTS RESULT OUT OF RANGE REFERENCE UNITS LAB WBCUA(LOIN None Seen /hpf C) UA WBC None Seen LAB RBCUA(LOIN None Seen /hpf C) Unknown UA RBC LOADED LAB EPIUA(LOIN None Seen /hpf C) Unknown UA Squam Epithelial 0-5 Performed By: #### UA, PREGU, UAMICAO #### [address] [address] PREGU Collected: 03/18/2018 Status: F Source: [facility] 6:25 [facility] EMERGENCY DEPARTMENT REPOSITORY TYPE CODE TESTS RESULT OUT OF RANGE REFERENCE UNITS LAB PREGU(LOIN C) Test Negative Urine LAB PRUG1(LOIN C) Unknown test HCG not (u) int detected. 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 of containers..01 ThinPrep Vial [...] Normal PERFORM Comment Result Comment: Albert Mayers, Supervisor Computer Operations (ASCP) LAB L7400.1700 . Normal SIGN Comment [...] types (16/18/31/33/35/39/45/ 51/52/56/58/59/66/68) without differentiation. Performed at: [address] [id number] Fixed Capital Clerk: Sultana Church MD, Phone: [phone] Performed at: =[address] [id number] Fixed Capital Clerk: Sultana Church MD, Phone: [phone] Performed By: #### L7400.0377 #### [facility] (refer to report for specific site) refer to report for address and phone number CT/NG W[facility] BY PCR Collected: 12/04/2017 Status: F Source: [place] 10:20 AM [facility] [place] TYPE CODE TESTS RESULT OUT OF RANGE REFERENCE UNITS LAB L8200.2100 Negative Normal Chlam Negative Trac PCR LAB L8200.2200 Negative Normal NG by Negative PCR Performed By: #### L8200.1999 #### [facility] [address] [place], [place], [address] CT/NG WCH BY PCR Collected: 09/04/2017 Status: F Source: [place] 2:35 PM [facility] [place] TYPE CODE TESTS RESULT OUT OF RANGE REFERENCE UNITS LAB L8200.2100 Negative Normal Chlam Negative Trac PCR LAB L8200.2200 Negative Normal NG by Negative PCR Performed By: #### L8200.1999 #### [facility] [place], [address] DISCHARGE INSTRUCTION Observed: 09/04/2017 Status: F Source: [place] 1:46 AM [facility] Medical Records Department [address] [place] [address] Discharge Instruction 09/04/17 0145 MR#: [id number] Acct: [id number] Name: MARLON GRANGER CK Rep #: [id number] : 1995 22 From: Wilbur Spann MD [...] problems, contact your Primary Care Provider. Call [facility] ([phone]) or report to the closest Emergency Room. Call 911 if necessary. 09/04/17 0146 <Electronically signed by Wilbur Spann MD> Date Wilbur Spann MD Cosigner Signature (If Indicated): Date CC: José Valderrama MD EMERGENCY DEPARTMENT Observed: 09/04/2017 Status: F Source: [place] SUMMARY 1:38 AM [facility] [place] [facility] Medical Records Department [address] [place] [address] Emergency Department Summary 09/04/17 0136 MR#: [id number] Acct: [id number] Name: MARLON GRANGER Rep #: [id number] : 1995 22 From: Wilbur Spann MD [...] Sore throat This note was generated with Seniorlink dictation software. It may contain incorrect words, [...] your Primary Care Provider. Call [facility] ([phone]) or report to the closest Emergency Room. Call 911 if necessary. 09/04/17137 <Electronically signed by Wilbur Spann MD> Date Wilbur Spann MD Cosigner Signature (If Indicated): Date CC: No Primary Care Physician; José Valderrama MD DISCHARGE INSTRUCTION Observed: 09/04/2017 Status: F Source: [place] 1:38 AM [facility] [place] [facility] Medical Records Department [address] [facility] [place] [address] Discharge Instruction 09/04/17137 MR#: [id number] Acct: [id number] Name: GRANGERMARLON CK Rep #: [id number] : 1995 22 From: Wilbur Spann MD [...] your Primary Care Provider. Call [facility] ([phone]) or report to the closest Emergency Room. Call 911 if necessary. 09/04/17 0138 <Electronically signed by Wilbur Spann MD> Date Wilbur Spann MD Cosigner Signature (If Indicated): Date CC: José Valderrama MD EMERGENCY DEPARTMENT Observed: 06/11/2017 Status: F Source: [place] SUMMARY 4:27 PM [facility] [place] [facility] Medical Records Department [address] [place] [address] Emergency Department Summary 06/11/17 1622 MR#: [id number] Acct: [id number] Name: MARLON GRANGER Rep #: [id number] : 1995 22 From: Josesito Stevenson MD [...] initial encounter This note was generated with Seniorlink dictation software. It may contain incorrect words, [...] problems, contact your Primary Care Provider. Call [facility] ([phone]) or report to the closest Emergency Room. Call 911 if necessary. 06/11/17 1627 <Electronically signed by Josesito Stevenson MD> Date Josesito Stevenson MD Cosigner Signature (If Indicated): Date CC: No Primary Care Physician; José Valderrama MD EMERGENCY DEPARTMENT Observed: 05/12/2017 Status: F Source: [place] SUMMARY 1:08 AM [facility] [place] [facility] Medical Records Department [address] [place] [address] Emergency Department Summary 05/10/17 1855 MR#: [id number] Acct: [id number] Name: MARLON GRANGER Rep #: [id number] : 1995 22 From: Dilshad Garza DO [...] abdominal pain This note was generated with Seniorlink dictation software. It may contain incorrect words, [...] problems, contact your Primary Care Provider. Call [facility] ([phone]) or report to the closest Emergency Room. Call 911 if necessary. 05/12/17 0108 <Electronically signed by Dilshad Garza DO> Date Dilshad Garza DO Cosigner Signature (If Indicated): Date CC: José Valderrama MD ABDOMEN/PELVIS WITHOUT Observed: 05/10/2017 Status: F Source: [place] CONT 6:18 PM [facility] [place] [facility] Imaging Services [address] [place] [address] [place] [address] Abdomen/Pelvis without Cont MR#: [id number] Acct: [id number] [facility] Rep #: [id number] : 1995 F 22 From: Javier Pearce MD PCP: José Valderrama MD Status: REG ER Study: Abdomen/Pelvis without Cont Date of Exam: 05/10/17 Exam# [id number] Ordering Dr: Dilshad Garza DO STUDY: CT [...] CC: José Valderrama MD; Dilshad Garza DO Psychology Intern: Signed ,URINE Collected: 05/10/2017 Status: F Source: [place] 5:50 PM [facility] [place] TYPE CODE TESTS RESULT OUT OF REFERENCE UNITS RANGE LAB L400.8000 Negative Normal HCGUQUAL Negative Result Comment: Very dilute urine specimens, as indicated by a low specific gravity, may not contain hvac sales representative levels of hCG. If is still suspected, a first morning urine specimen should be collected 48 hours later and tested. Performed By: #### L400.7600 #### [facility] [address] [place], [address] URINALYSIS, COMPLETE Collected: 05/10/2017 Status: F Source: [place] 5[facility]50 PM [facility] Order Comment: [...] URINE SEEN Performed By: #### L400.0001 #### [facility] [address] [place], [address] ALLERGIES ALLERGIES DATE TYPE / CODE NAME / CODE REACTION SEVERITY SOURCE 09/04/2017 Drug Penicillins/ Unknown Unknown [facility] Allergy/4160 [id number](R [facility] [address](SNOMED XNORM) Repository CT) ENCOUNTERS ENCOUNTERS ADMIT/DISCHARGE ACCOUNT NUMBER ADMITTING ENCOUNTER LOCATION SOURCE CLASS 04/14/2018 [id number] Ambulatory [facility] ding:WOBLAB Repository 04/12/2018/04/12/20 [id number] Emergency [address] ding:ED Repository 03/20/2018 [id number] Ambulatory [facility] ding:WOBLAB Repository 03/18/2018/03/18/20 [id number] Emergency BBuilding:ROXANNA Zapata [address] [place] [address] Repository 02/06/2018 [id number] Ambulatory [facility] ding:LABSPEC Repository 01/30/2018/01/31/20 [id number] Emergency BBuilding:ROXANNA Zapata [address] [place] [address] Repository 12/04/2017 [id number] Ambulatory [facility] ding:LABSPEC Repository 09/04/2017 [id number] Ambulatory [facility] ding:LABSPEC Repository 09/04/2017/09/05/19 [id number] Emergency [place] ding:ED Repository 07/26/2017/07/27/19 [id number] Emergency [address] ding:ED Repository 06/11/2017/06/11/19 [id number] Emergency [place] ding:ED Repository 05/10/2017/05/10/20 [id number] Emergency [place] ding:ED Repository PAYERS PAYERS ENCOUNTER GUARANTOR PAYER SUBSCRIBER SOURCE 04/14/2018 NIGERIA CK Primary NIGERIA CK [place] [id number] Insurance:RACHEAL JI: [facility] [id number] Health Number: Repository [address]Oye: 330 [id number] [phone] (HP) Date:5924-76-71MG [address] [place] [address]UA: 04/14/2018 Secondary NOT GIVENUNK [place] Insurance:SELF PAY [facility] Number: Effective Repository Date:2018-04-14 04/12/2018 NIGERIA CK Primary NIGERIA CK [place] [id number] Insurance:RACHEAL JIB: [facility] [id number] Health Number: Repository [address]Kqp: 330 [id number] [phone] (HP) Date:8564-57-39ZI [address] [place] [address]23[address]FU: 04/12/2018 Secondary NOT GIVENUNK [place] Insurance:SELF PAY Community [facility] Number: Effective Repository Date:2018-04-12 03/20/2018 NIGERIA CK Primary NIGERIA CK [place] [id number] Insurance:BUCKEYE EVANSDOB: [facility] [id number] PLANPolicy Number: Repository [id number]: 330 [id number] [phone] (HP) Date:2310-51-23LX [address] [place] [address]WS: 03/20/2018 Secondary NOT GIVENUNK [place] Insurance:SELF PAY [facility] Number: Effective Repository Date:2018-03-20 03/18/2018 [facility]ERIA [facility] Insurance:BUCKEYE EVANSDOB: [facility] [id number] [facility] [id number] Repository [facility] Number: [address] [place], [place] [id number], [place] [address]Hhm: (330) Date:2018-03-18 210[address]Vni: (HP) [id number] [phone] Name:XPO Hodan ()Tel: [phone] [place] [address] [place] [phone] ) [address]OH: 02/06/2018 NIGERIA CK Primary NIGERIA CK [place] [id number] Insurance:BUCKEYE EVANSDOB: [facility] [id number] [facility]St[facility] Number: Repository [id number]: 330 [id number] [phone] (HP) Date:9477-80-99XU [address] [place] [address]MJ: 02/06/2018 Secondary NOT GIVENUNK [place] Insurance:SELF PAY [facility] Number: Effective Repository Date:2018-02-06 01/30/2018 NIGERIA Primary [facility]ERIA [facility] Insurance:BUCKEYE EVANSDOB: [facility] [id number] HEALTH PLANPolicy [id number] Repository [facility] Number: [address] [place], [place] [id number] [place], [place] [address]Ckj: (330) Date:2018-01-30 709[address]Qtz: () [id number] [phone] Name:XPO Box ()Tel: [phone]) [phone] [place] [address] 000-0000 ) [address]OH: 12/04/2017 NIGERIA CK Primary NIGERIA CK [place] [id number] Insurance:BUCKEYE EVANSDOB: [facility] [id number], [place] PLANPolicy Number: Repository [id number]: 330 [id number] [phone] () Date:9937-63-00ES BOX [facility] [place], [place] [address]FI: 12/04/2017 Secondary NOT GIVENUNK [place] Insurance:SELF PAY [facility] Number: Effective Repository Date:2017-12-04 09/04/2017 NIGERIA CK Primary NIGERIA CK [place] [id number] [address] Insurance:BUCKEYE EVANSDOB: [facility] [id number] Hospital [address]Jfy: (330) PLANPolicy Number: Repository [phone] () [id number] Date:8331-55-84VM [address] [place] [address]BR: 09/04/2017 Secondary NOT GIVENUNK [place] Insurance:SELF PAY [facility] Number: Effective Repository Date:2017-09-04 09/04/2017 NIGERIA CK Primary NIGERIA CK [place] [id number] [address] Insurance:BUCKEYE EVANSDOB: [facility] [id number] Hospital [address]Bsk: (330) PLANPolicy Number: Repository [phone] () [id number] Date:5919-86-82AE [address] [place] [address]78[address]CB: 09/04/2017 Secondary NOT GIVENUNK [place] Insurance:SELF PAY Community [facility] Number: Effective Repository Date:2017-09-04 07/26/2017 [place] [id number] Primary [place] [address] Insurance:BUCKEYE JudeDOB: [facility] [id number] Hospital [address]Osz: (330) PLANPolicy Number: Repository [phone] () [id number] Date:6516-35-92ZD [address] [address]XF: 07/26/2017 Secondary NOT GIVENUNK [place] Insurance:SELF PAY [facility] Number: Effective Repository Date:2017-07-26 06/11/2017 [place] [id number] Primary [place] [address] Insurance:BUCKLEAH JiB: [facility] [id number] Hospital [address]Oun: (330) PLANPolicy Number: Repository [phone] () [id number] Date:8450-46-06BQ BOX [facility] [place] [address]EF: 06/11/2017 Secondary NOT GIVENUNK [place] Insurance:SELF PAY [facility] Number: Effective Repository Date:2017-06-11 05/10/2017 [place] [id number] Primary [place] [address] Insurance:RACHEAL JiB: [facility] [id number] Hospital [address]Jfl: (330) PLANPolicy Number: Repository [phone] () [id number] Date:5478-19-85QW [address] [address]AH: 05/10/2017 Secondary NOT GIVENUNK [place] Insurance:SELF PAY [facility] Number: Effective Repository Date:2017-05-10
== END ==
PROVIDERS: Visit Provider Obstetrics & Gynecology
DX: N91.5 Oligomenorrhea, unspecified (principal)
CPT/HCPCS: 36415; 85027

== ENCOUNTER → 2018-12-01 | Outpatient (CLI) | payer MEDICAID, SELFPAY ==
[2018-12-01 19:10] LABS: Chlamydia Trachomatis by PCR Negative (Negative); Neisserai gonorrhoeae by PCR Negative (Negative); Probe Check PASS; Sample Adequacy Control PASS; Specimen Processing Control PASS
== END | disposition home or self-care (01) ==
LOC: LABSPEC 16:07
PROVIDERS: Visit Provider Obstetrics & Gynecology
DX: Z11.3 Encounter for screening for infections with a predominantly sexual mode of transmission (principal)
CPT/HCPCS: 87491; 87591

== ENCOUNTER → 2019-01-08 | Outpatient (CLI) | payer MEDICAID, SELFPAY ==
[2019-01-08 17:57] LABS: Chlamydia Trachomatis by PCR Negative (Negative); Neisserai gonorrhoeae by PCR Negative (Negative); Probe Check PASS; Sample Adequacy Control PASS; Specimen Processing Control PASS
== END | disposition home or self-care (01) ==
LOC: LABSPEC 15:26
PROVIDERS: Visit Provider Obstetrics & Gynecology
DX: Z11.3 Encounter for screening for infections with a predominantly sexual mode of transmission (principal)
CPT/HCPCS: 87491; 87591

== ENCOUNTER 2019-03-10 22:48 | Emergency (ER) | payer MEDICAID, SELFPAY ==
[2019-03-10 22:49] VITALS: BP 122/74; PULSE 88; RESP 18; TEMP 36.4; O2SAT 100; BMI 18.0
--- NOTE | 2019-03-10 23:11 | ED.VIS.GEN ---
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 She had itchy eyes and scratchy throat today. No other symptoms present. No home treatment. Current severity is mild. She does not take any antihistamines. No history of anaphylaxis. - Past Medical History (1) Amenorrhea, secondary Status: Chronic (2) Ovarian cyst Status: Chronic Past Medical History - Allergies and Home Meds Allergies/Adverse Reactions: Allergies Penicillins Allergy (Verified 03/10/19 22:51) Unknown Primary Care Physician: Care Physician,No Primary [Primary Care Provider] - Prior records reviewed: Yes Past Medical History: - - See problem list Surgical History: noncontributory Smoking Status: Current every day smoker Alcohol: None Drugs: None Review of Systems General: Denies: Chills, Fever, Sweats Eyes: Denies: Visual changes - bilaterally, Diplopia ENT: Reports: Sore throat - Scratchy throat. Denies: Rhinorrhea Cardiovascular: Denies: Chest pain, Palpitations Respiratory: Denies: Dyspnea, Cough, Dyspnea on exertion Gastrointestinal: Denies: Abdominal pain, Nausea, Vomiting, Diarrhea, Melena, Hematochezia Genitourinary: Denies: Dysuria, Hematuria, Frequency Musculoskeletal: Denies: Back pain, Extremity Pain Skin: Denies: Rash, Wounds Neurological: Denies: Headache, Weakness, Numbness Physical Exam Vital Signs/Narrative: Vital Signs Temp Pulse Resp BP Pulse Ox 03/10/19 22:49 97.6 F L 88 18 122/74 H 100 General: Well nourished, Well developed, No Acute Distress Head: Normocephalic, Atraumatic Eyes: Perrl, EOMI ENT: Moist mucous membranes, No rhinorrhea Neck: Supple, Nontender Cardiovascular: Regular rate, Regular rhythm, No murmurs Respiratory: No distress, CTA bilaterally, Chest nontender Abdomen: Soft, Nontender, Nondistended, Normal bowel sounds Back: Nontender, Normal Inspection Extremities: Nontender, No edema Skin: Normal color, No rash Neurological: Alert, Oriented x3, Cranial nerves II-XII grossly intact, Normal Strength, Normal Sensation Psychological: Normal affect, Normal Mood Diagnostic/Tx/Re-eval - Medical Decision Making I feel the patient is likely having a mild histamine reaction to the pollen and grass side. Given to Benadryl in the department and a prescription for loratadine. We will follow-up as an outpatient ED Disposition - Plan for ED Patient: Diagnosis: Allergic rhinitis Instructions: ALLERGIC REACTION, Other (General), Controlling Allergens: Pollen Prescriptions: Loratadine 10 mg PO DAILY #30 tab Prescription Printed Referrals: Eren Chappell MD [STAFF PHYSICIAN] -
[2019-03-10 23:54] VITALS: BP 111/79; PULSE 67; PULSE 77; RESP 12; RESP 14; O2SAT 100; O2SAT 98
[2019-03-10] MEDS: DiphenhydrAMINE 25 MG Capsule 50 MG PO (23:58)
== END 2019-03-11 00:01 | disposition home or self-care (01) ==
LOC: ED 23:26
PROVIDERS: Emergency Provider Emergency Medicine
DX: J30.9 Allergic rhinitis, unspecified (principal); F17.200 Nicotine dependence, unspecified, uncomplicated
CPT/HCPCS: 99282

== ENCOUNTER 2019-03-16 14:16 | Outpatient (REF) | payer SELFPAY ==
[2019-03-16 14:52] LABS: Internal QC Validated? YES +Cl - CLEAR BKGD; Pregnancy, Serum, hCG Quali. NEGATIVE Negative
[2019-03-16 15:44] LABS: HIV - WCH Non-Reactive (Nonreactive)
== END 2019-03-16 19:00 | disposition home or self-care (01) ==
LOC: ED 14:16
PROVIDERS: Emergency Medicine
DX: Z04.41 Encounter for examination and observation following alleged adult rape (principal)
CPT/HCPCS: 84703; 86703

== ENCOUNTER → 2019-04-16 16:33 | Outpatient (CLI) | payer MEDICAID, SELFPAY ==
[2019-04-16 17:29] LABS: hCG Titer Quant., Serum < 1 mIU/mL (1-3)
== END ==
PROVIDERS: Visit Provider Obstetrics & Gynecology
DX: N92.6 Irregular menstruation, unspecified (principal)
CPT/HCPCS: 36415; 84702

== ENCOUNTER 2019-04-17 21:22 | Emergency (ER) | payer MEDICAID, SELFPAY ==
[2019-04-17 21:26] VITALS: BP 124/69; PULSE 73; RESP 18; TEMP 36.3; O2SAT 97; BMI 18.6
--- NOTE | 2019-04-17 21:46 | ED.DCSUM_ITS ---
- ER Visit Summary Date of Service: 04/17/19 Chief Complaint: Vaginal discharge History of Present Illness: The patient is a 24 F who presents with vaginal discharge. Started 3 days ago. She states it is foul-smelling and whitish in color. She denies any dysuria or hematuria. She has had some mild frequency. She is sexually active with a single partner and uses no control. She denies fevers. She has had yeast infections before. Last month she was diagnosed with GC, chlamydia and trichomonas. She denies any pelvic pain. No back pain. Physical Examination: Vital signs reviewed. HEENT exam unremarkable. Heart is regular rate and rhythm without murmurs. Lungs are clear to auscultation. Abdomen is soft and nontender. exam is deferred. Extremities reveal no edema. Skin exam normal. Neurologic exam normal. Test Results: GC and Chlamydia testing are pending Emergency Department Course and Treatment: The patient will be treated with Rocephin, azithromycin, Flagyl and Diflucan. This will cover STDs as well as a yeast infection. Due to her recent history of this is likely that she is reinfected. She will be treated with these. She will be notified if these test positive and she did notify her partner. Treatment Plan: [] Disposition: Discharge Impression: Vaginal discharge This note was generated with [employer] dictation software. It may contain incorrect words, spelling, and punctuation that were not noted in review of the chart prior to signing ED Disposition - Plan for ED Patient: Referrals: Ethan Valderrama MD [Primary Care Provider] -
--- NOTE | 2019-04-17 21:48 | ED.DEP ---
ED Disposition - Plan for ED Patient: Disposition: Home or Assisted Living Instructions: Vaginal Infection: Yeast (Candidiasis) Referrals: Ethan Valderrama MD [Primary Care Provider] -
[2019-04-17] MEDS: Azithromycin 250 MG Tablet 1000 MG PO (22:34)
[2019-04-17] MEDS: Fluconazole 100 MG Tablet 200 MG PO (22:35)
[2019-04-17] MEDS: metroNIDAZOLE 500 MG Tablet 2000 MG PO (22:36)
[2019-04-17] MEDS: Ceftriaxone 500 MG Vial 250 MG IM (22:37)
[2019-04-17 23:38] LABS: Chlamydia Trachomatis by PCR Negative (Negative); Neisserai gonorrhoeae by PCR Negative (Negative)
[2019-04-17 23:39] LABS: Probe Check PASS; Sample Adequacy Control PASS; Specimen Processing Control PASS
== END 2019-04-17 22:45 | disposition home or self-care (01) ==
LOC: ED 22:02
PROVIDERS: Emergency Provider Emergency Medicine; Family Provider Family Medicine; PCP Family Medicine
DX: N89.8 Other specified noninflammatory disorders of vagina (principal); Z72.0 Tobacco use
CPT/HCPCS: 87491; 87591; 96372; 99283

== ENCOUNTER → 2019-05-20 16:13 | Outpatient (CLI) | payer MEDICAID, SELFPAY ==
[2019-05-20 18:03] LABS: Hematocrit 38.2 % (37-47); Hemoglobin 12.3 g/dL (12.0-15.0); Mean Corp Hgb Conc 32.2 g/dL (32-36); Mean Corpuscular Hgb 24.8 pg (27.0-32.0); Mean Corpuscular Volume 77.2 fL (81-99); Mean Platelet Vol. 10.8 fl (6.2-12.0); Platelet Count 219 K/mm3 (150-450); RBC Distribution Width CV 18.1 % (11.6-14.6); RBC Distribution Width SD 49.2 fl (35.1-43.9); RET-HE 34.1 pg (30-35); Red Blood Count 4.95 M/mm3 (4.2-5.4); Reticulocyte Count 0.81 % (0.5-1.5); White Blood Count 7.5 K/mm3 (4.4-11.0)
[2019-05-20 18:50] LABS: Vitamin D,25 Hydroxy 15.2 ng/mL (29.95-100.01)
[2019-05-20 18:55] LABS: Ferritin 4 ng/mL (8-252); Iron 30 ug/dL (50-170); Iron Binding Capacity,Total 420 ug/dL (250-450); Thyroid Stim Hormone (TSH) 1.21 uIU/mL (0.358-3.74)
== END ==
PROVIDERS: Family Provider Family Medicine; PCP Family Medicine; Referring Provider Family Medicine; Visit Provider Family Medicine
DX: D64.9 Anemia, unspecified (principal); N92.6 Irregular menstruation, unspecified; E55.9 Vitamin D deficiency, unspecified
CPT/HCPCS: 36415; 82306; 82728; 83540; 83550; 84443; 85027; 85045

== ENCOUNTER 2019-05-28 16:43 | Emergency (ER) | payer MEDICAID, SELFPAY ==
[2019-05-28 16:44] VITALS: BP 119/84; PULSE 86; RESP 15; TEMP 36.6; O2SAT 100; BMI 19.4
--- NOTE | 2019-05-28 17:36 | US_ITS ---
STUDY: ULTRASOUND OF THE FEMALE PELVIS - COMPLETE REASON FOR EXAM: Female, 24 years old. Pelvic pain, swelling.- LMP: 02/10/2019. TECHNIQUE: Transvaginal. TECHNICAL QUALITY: Adequate. COMPARISON: None. FINDINGS: Uterus is normal in size measuring 7.6 x 4.5 x 5.2 cm. Endometrial thickness is normal, measuring 9 mm. No uterine mass. Left ovary is normal in size and echogenicity, measuring 4.2 x 2.6 x 2.3 cm. Normal follicles are present. No mass or dominant follicle. Arterial flow is documented. Right ovary measures 5.9 x 2.6 x 2.3 cm. Normal follicles are present. No mass or dominant follicle. Arterial flow is documented. Trace free fluid in the cul-de-sac. US/Transvaginal Non- IMPRESSION: Mildly enlarged right ovary with no focal lesion. Otherwise negative study. Electronically Signed: Brittany Kuhn MD at 19:06 EST Tel , Service support ,
--- NOTE | 2019-05-28 17:39 | ED.DCSUM_ITS ---
- ER Visit Summary Date of Service: 05/28/19 Chief Complaint: Pelvic pain History of Present Illness: The patient is a 24 F presenting with pelvic pain. Patient states this started approximately 1 week ago. She states she has irregular periods but has not had a period for the past 3 months. She is concer westley that she may have a yeast infection. She states she has had vaginal dryness. She denies discharge. She called her CRAWLER TRACTOR OPERATOR and was advised to use coconut oil. She also complains of dysuria and urinary frequency. Denies fever. She has a history of ovarian cyst. Denies other complaints. Physical Examination: Vitals are stable. Patient is afebrile. Alert no acute distress. HEENT exam is unremarkable. Neck is supple. Lungs are clear and equal bilaterally. Heart is regular rate and rhythm. Abdomen is soft left lower pelvic tenderness with no guarding or rebound : Thick white vaginal discharge. No cervical motion tenderness. No adnexal tenderness. Extremities are unremarkable. Skin is warm and dry. No focal neurologic deficit. Remainder of exam is unremarkable. Emergency Department Course and Treatment: Urinalysis unremarkable. hCG negative. Pelvic ultrasound shows mildly enlarged right ovary with no focal lesion. Otherwise negative study. Patient was given Diflucan. Advised to follow-up with her CRAWLER TRACTOR OPERATOR. Advised return to ED for worsening complaints. Disposition: Discharged home Impression: Yeast vaginitis This note was generated with [employer] dictation software. It may contain incorrect words, spelling, and punctuation that were not noted in review of the chart prior to signing ED Disposition - Plan for ED Patient: Instructions: Vaginal Infection: Yeast (Candidiasis) Prescriptions: Fluconazole [Diflucan] 150 mg PO X1 #1 tab Prescription Printed Referrals: Ethan Valderrama MD [Primary Care Provider] - Fabián May MD [STAFF PHYSICIAN] -
[2019-05-28 17:58] LABS: Bacteria 0 SEEN /hpf (None Seen); Mucous, Urine 0 SEEN /hpf (<or=2+); Red Blood Cells-Urine 0 SEEN /hpf (0-5); White Blood Cells 0 SEEN /hpf (0-5)
[2019-05-28 18:10] LABS: Color, Urine Straw (Yellow); Glucose, Dipstick Normal (Normal); Ketone-Dipstick Negative (Negative); Leukocyte Esterase-Dipstick Negative /ul (Negative); Nitrite-Dipstick Negative (Negative); Occult Blood-Urine Negative /ul (Negative); Protein-Dipstick Negative (Negative); Specific Gravity, Urine 1.015 (1.002-1.030); Urine Bilirubin Dipstick Negative (Negative); Urine Clarity Clear (Clear); Urine Urobilinogen Normal (Normal)
[2019-05-28 18:18] LABS: Internal QC Validated? YES +Cl - CLEAR BKGD; Pregnancy, Urine Negative Negative
[2019-05-28 18:57] LABS: Squamous Epithelial Cells - UA 0-5 SEEN /hpf (5-10)
[2019-05-28 18:58] LABS: Transitional Epithelial - Ur 0-5 SEEN /hpf (0-5)
--- NOTE | 2019-05-28 19:35 | ED.DEP ---
ED Disposition - Plan for ED Patient: Instructions: Vaginal Infection: Yeast (Candidiasis) Prescriptions: Fluconazole [Diflucan] 150 mg PO X1 #1 tablet Referrals: Ethan Valderrama MD [Primary Care Provider] - Fabián May MD [STAFF PHYSICIAN] -
[2019-05-28 19:38] VITALS: BP 105/60; PULSE 62; RESP 16; O2SAT 99
[2019-05-28] MEDS: Fluconazole 100 MG Tablet 150 MG PO (19:52)
== END 2019-05-28 20:00 | disposition home or self-care (01) ==
LOC: ED 17:53
PROVIDERS: Emergency Provider Emergency Medicine; PCP Family Medicine
DX: B37.3 Candidiasis of vulva and vagina (principal); Z72.0 Tobacco use
CPT/HCPCS: 76830; 81001; 81025; 93976; 99283

== ENCOUNTER → 2019-07-30 | Outpatient (CLI) | payer MEDICAID, SELFPAY ==
[2019-07-30 17:38] LABS: Absolute Lymphocyte Count 1.89 X10^3/uL (0.83-4.51); Absolute Neutrophil Count 3.3 X10^3/uL (2.0-7.7); Basophil# 0.05 X10^3/uL; Basophil% 0.8 % (0-1); Eosinophil# 0.15 X10^3/uL; Eosinophils% 2.5 % (0-5); Hematocrit 38.5 % (37-47); Hemoglobin 12.8 g/dL (12.0-15.0); Lymphocyte # 1.89 X10^3/ul (4.0); Lymphocyte % 31.9 % (19-41); Mean Corp Hgb Conc 33.2 g/dL (32-36); Mean Corpuscular Hgb 27.6 pg (27.0-32.0); Mean Platelet Vol. 11.3 fl (6.2-12.0); Monocyte# 0.49 X10^3/uL; Monocyte% 8.3 % (0-10); NRBC Flagged by Analyzer 0 % (0-5); Neutrophil # 3.32 X10^3/uL (2.7-7.7); Neutrophil % 56.2 % (47-70); Platelet Count 219 K/mm3 (150-450); RBC Distribution Width CV 14.6 % (11.6-14.6); RBC Distribution Width SD 44.1 fl (35.1-43.9); RET-HE 33.1 pg (30-35); Red Blood Count 4.64 M/mm3 (4.2-5.4); Reticulocyte Count 0.61 % (0.5-1.5); White Blood Count 5.9 K/mm3 (4.4-11.0)
[2019-07-30 17:44] LABS: Ferritin 4 ng/mL (8-252); Iron 27 ug/dL (50-170)
[2019-07-30 18:30] LABS: Vitamin D,25 Hydroxy 57.7 ng/mL
== END | disposition home or self-care (01) ==
LOC: MFPLAB 14:27
PROVIDERS: PCP Family Medicine; Referring Provider Family Medicine; Visit Provider Family Medicine
DX: E55.9 Vitamin D deficiency, unspecified (principal); D64.9 Anemia, unspecified
CPT/HCPCS: 36415; 82306; 82728; 83540; 85025; 85045

== ENCOUNTER → 2019-09-17 | Outpatient (CLI) | payer MEDICAID, SELFPAY ==
[2019-09-17 17:41] LABS: Absolute Lymphocyte Count 2.26 X10^3/uL (0.83-4.51); Absolute Neutrophil Count 6.3 X10^3/uL (2.0-7.7); Basophil# 0.04 X10^3/uL; Basophil% 0.4 % (0-1); Eosinophils% 1.1 % (0-5); Hematocrit 41.1 % (37-47); Hemoglobin 13.4 g/dL (12.0-15.0); Lymphocyte # 2.26 X10^3/ul (4.0); Mean Corp Hgb Conc 32.6 g/dL (32-36); Mean Corpuscular Hgb 27.7 pg (27.0-32.0); Mean Corpuscular Volume 85.1 fL (81-99); Mean Platelet Vol. 10.9 fl (6.2-12.0); Monocyte# 0.74 X10^3/uL; Monocyte% 7.8 % (0-10); NRBC Flagged by Analyzer 0 % (0-5); Neutrophil # 6.26 X10^3/uL (2.7-7.7); Neutrophil % 66.4 % (47-70); Platelet Count 238 K/mm3 (150-450); RBC Distribution Width CV 13.8 % (11.6-14.6); RBC Distribution Width SD 42.9 fl (35.1-43.9); Red Blood Count 4.83 M/mm3 (4.2-5.4); White Blood Count 9.4 K/mm3 (4.4-11.0)
[2019-09-17 18:10] LABS: Ferritin 5 ng/mL (8-252); Iron 46 ug/dL (50-170)
[2019-09-18 07:26] LABS: HIV - WCH Non-Reactive (Nonreactive); Hepatitis B Surface Antigen Non-Reactive (Nonreactive); Hepatitis C Antibody Non-Reactive (Nonreactive); Vitamin D,25 Hydroxy 41.6 ng/mL
[2019-09-18 10:22] LABS: Chlamydia Trachomatis by PCR Negative (Negative); Neisserai gonorrhoeae by PCR Negative (Negative); Probe Check PASS; Sample Adequacy Control PASS; Specimen Processing Control PASS
[2019-09-19 12:16] LABS: Hepatitis B Core AB IgM Negative (Negative)
[2019-09-24 02:30] LABS: Rapid Plasmin Reagin (RPR) NONREACTIVE (NONREACTIVE)
== END | disposition home or self-care (01) ==
PROVIDERS: PCP Family Medicine; Referring Provider Family Medicine; Visit Provider Family Medicine
DX: N89.8 Other specified noninflammatory disorders of vagina (principal); E55.9 Vitamin D deficiency, unspecified; D64.9 Anemia, unspecified
CPT/HCPCS: 36415; 82306; 82728; 83540; 85025; 86592; 86703; 86705; 86803; 87340; 87491; 87591

== ENCOUNTER 2019-12-28 18:10 | Emergency (ER) | payer MEDICAID, SELFPAY ==
[2019-12-28 18:11] VITALS: BP 123/86; PULSE 86; RESP 15; TEMP 36.3; O2SAT 99; BMI 18.0
--- NOTE | 2019-12-28 18:45 | ED.RN ---
PT STATED SHE WOULD SEE SOMEONE TOMORROW AND AMBULATED FROM ED
== END 2019-12-28 18:47 | disposition left against medical advice (07) ==
LOC: ED 18:44
PROVIDERS: Emergency Provider Emergency Medicine; PCP Family Medicine
DX: R69 Illness, unspecified (principal)

== ENCOUNTER → 2020-01-13 11:53 | Outpatient (CLI) | payer MEDICAID, SELFPAY ==
[2019-12-28 18:11] VITALS: BMI 18.0
[2020-01-13 14:10] LABS: Chlamydia Trachomatis by PCR Negative (Negative); Neisserai gonorrhoeae by PCR Negative (Negative); Probe Check PASS; Sample Adequacy Control PASS; Specimen Processing Control PASS
== END ==
PROVIDERS: PCP Family Medicine; Referring Provider Family Medicine; Visit Provider Family Medicine
DX: Z71.1 Person with feared health complaint in whom no diagnosis is made (principal)
CPT/HCPCS: 87491; 87591

== ENCOUNTER 2020-02-05 19:36 | Emergency (ER) | payer MEDICAID, SELFPAY ==
[2020-02-05 19:36] VITALS: BP 125/76; PULSE 81; RESP 16; TEMP 36.7; O2SAT 100; BMI 20.7
--- NOTE | 2020-02-05 20:10 | ED.DCSUM_ITS ---
History of Present Illness Chief Complaint: Complaint Informant: Patient Narrative: Patient is a 24-year-old previous healthy female who presents to the emergency department for concern for STD. Her sexual partner had another partner who tested positive for trichomoniasis. She has been having some vaginal discharge with foul odor. She was diagnosed with a yeast infection and was treated with oral antifungals. She is still having some symptoms. She denies any dysuria or hematuria. She does not believe she is currently. She does have a history of before in the past. She denies any back pain or abdominal pain. She states she has had trichomonas before in the past. She denies any systemic symptoms including any fever/chills or nausea/vomiting. No change in bowel habits. Past Medical History - Allergies and Home Meds Allergies/Adverse Reactions: Allergies Penicillins Allergy (Verified 02/05/20 19:36) Unknown Primary Care Physician: Ethan Valderrama MD [Primary Care Provider] - 3-5 Days if not improving Prior records reviewed: Yes Past Medical History: None Surgical History: noncontributory Smoking Status: Current some day smoker Review of Systems All systems negative except as indicated General: Denies: Chills, Fever, Sweats Eyes: Denies: Visual changes - bilaterally, Diplopia ENT: Denies: Rhinorrhea, Sore throat Cardiovascular: Denies: Chest pain, Palpitations Respiratory: Denies: Dyspnea, Cough, Dyspnea on exertion Gastrointestinal: Denies: Abdominal pain, Nausea, Vomiting, Diarrhea Genitourinary: Denies: Dysuria, Hematuria, Frequency Musculoskeletal: Denies: Back pain, Extremity Pain Skin: Denies: Rash, Wounds Neurological: Denies: Headache, Weakness, Numbness Physical Exam Vital Signs/Narrative: Vital Signs Temp Pulse Resp BP Pulse Ox 02/05/20 19:36 98.0 F 81 16 125/76 H 100 Inital Vital Signs reviewed: Yes General: Well nourished, Well developed, No Acute Distress Head: Normocephalic, Atraumatic Eyes: Perrl, EOMI ENT: Moist mucous membranes, No rhinorrhea Neck: Supple, Nontender Cardiovascular: Regular rate, Regular rhythm, No murmurs Respiratory: No distress, CTA bilaterally, Chest nontender Abdomen: Soft, Nontender, Nondistended, Normal bowel sounds : - - Chaperoned by nurse. No significant tenderness. Very mild vaginal discharge. No chandelier sign. No external lesions appreciated. Back: Nontender, Normal Inspection Extremities: Nontender, No edema Skin: Normal color, No rash Neurological: Alert, Oriented x3, Cranial nerves II-XII grossly intact, Normal Strength, Normal Sensation Psychological: Normal affect, Normal Mood Diagnostic/Tx/Re-eval - Medical Decision Making Patient presents to the ED for STD check. She is agreeable to doing a pelvic exam with swabs at this time. Will check urinalysis and urine . Patient does not have any evidence of UTI on urinalysis. is negative. Trichomonas screen negative. Gonorrhea and Chlamydia are pending. Will hold off on treatment at this time. Will contact if the results are positive. 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 Warning signs and symptoms which to return to the ED are reviewed with her. She understands and is agreeable this plan. Patient discharged home in stable condition. ED Disposition - Plan for ED Patient: Disposition: Home or Assisted Living Diagnosis: Vaginal discharge Instructions: If You Think You Have an STD Referrals: Ethan Valderrama MD [Primary Care Provider] - 3-5 Days if not improving
[2020-02-05 20:18] LABS: Bacteria 0 SEEN /hpf (None Seen); Mucous, Urine 0 SEEN /hpf (<or=2+); Red Blood Cells-Urine 0 SEEN /hpf (0-5); White Blood Cells 0 SEEN /hpf (0-5)
[2020-02-05 20:23] LABS: Internal QC Validated? YES +Cl - CLEAR BKGD; Pregnancy, Urine Negative Negative
[2020-02-05 20:27] LABS: Color, Urine Yellow (Yellow); Glucose, Dipstick Normal (Normal); Ketone-Dipstick Negative (Negative); Leukocyte Esterase-Dipstick Negative /ul (Negative); Nitrite-Dipstick Negative (Negative); Occult Blood-Urine Negative /ul (Negative); Protein-Dipstick Negative (Negative); Specific Gravity, Urine 1.015 (1.002-1.030); Urine Bilirubin Dipstick Negative (Negative); Urine Clarity Clear (Clear); Urine Urobilinogen Normal (Normal)
[2020-02-05 20:54] LABS: Squamous Epithelial Cells - UA 0-5 SEEN /hpf (5-10)
[2020-02-05 21:19] VITALS: RESP 16
[2020-02-05 22:24] LABS: Chlamydia Trachomatis by PCR Negative (Negative); Neisserai gonorrhoeae by PCR Negative (Negative); Probe Check PASS; Sample Adequacy Control PASS; Specimen Processing Control PASS
== END 2020-02-05 21:20 | disposition home or self-care (01) ==
PROVIDERS: Emergency Provider Emergency Medicine; PCP Family Medicine
DX: N89.8 Other specified noninflammatory disorders of vagina (principal); F17.200 Nicotine dependence, unspecified, uncomplicated
CPT/HCPCS: 81001; 81025; 87210; 87491; 87591; 99282

== ENCOUNTER → 2020-02-29 | Outpatient (CLI) | payer MEDICAID, SELFPAY ==
[2020-02-05 19:36] VITALS: BMI 20.7
--- NOTE | 2020-02-29 10:25 | BI_ITS ---
MAMMOGRAPHY - BILATERAL DIAGNOSTIC REASON FOR EXAM: Female, 25 years old. Left breast lump. Occasional left breast nipple discharge. PERTINENT HISTORY: Non-contributory. TECHNIQUE: Digital bilateral breast lakes[place]ia (3D mammographic acquisition) in the CC and MLO projections. 2-D mediolateral oblique (MLO) and craniocaudad (CC) views of both breasts were obtained. CAD: Full Field Digital Mammography with Computer Added Detection was performed. COMPARISON: None. Baseline examination. FINDINGS: Breast Composition: The breasts are extremely dense, which lowers the sensitivity of mammography. There are no dominant masses or suspicious calcifications. No other significant abnormalities are identified. BI/DIAG MAMM W/CAD, BILAT IMPRESSION: Negative diagnostic mammogram. With the patient''s history of a left breast lump and occasional left breast nipple discharge, correlation with ultrasound is recommended. ASSESSMENT CATEGORY: BIRADS Category 0: Incomplete. Need additional imaging evaluation. A letter regarding these results will be sent to the patient by the facility within 30 days. Approximately 10% of breast cancers are not detected by mammography. A normal mammogram should not delay biopsy of a clinically suspicious abnormality. Electronically Signed: Benny López, at 11:41 EDT , Service support ,
--- NOTE | 2020-02-29 10:25 | US_ITS ---
STUDY: ULTRASOUND BREAST - LEFT REASON FOR EXAM: Female, 25 years old. Palpable lump left breast. Nipple discharge. TECHNIQUE: Axial and longitudinal images of the LEFT breast were performed with a high resolution ultrasound transducer. # OF IMAGES: 110 COMPARISON: Comparison is made with prior mammogram done earlier today. FINDINGS: LEFT Breast: There are small cysts seen at 11 o''clock position of the breast at 2 and 3 cm from the nipple. The larger cyst measures 3 mm x 3 mm x 3 mm. US/Breast Limited Unilateral IMPRESSION: 2 small cysts are seen at the 11 o''clock position of the breast. ASSESSMENT CATEGORY: BIRADS Category 2: Benign. A letter regarding these results will be sent to the patient by the facility within 30 days. Electronically Signed: Benny López, at 13:03 EDT , Service support ,
== END | disposition home or self-care (01) ==
LOC: OPBI 10:06
PROVIDERS: PCP Family Medicine; Referring Provider Nurse Practitioner Family; Visit Provider Nurse Practitioner Family
DX: N64.4 Mastodynia (principal)
CPT/HCPCS: 76642; 77062; 77066; G0279

== ENCOUNTER → 2020-03-03 | Outpatient (CLI) | payer MEDICAID, SELFPAY ==
[2020-02-05 19:36] VITALS: BMI 20.7
[2020-03-03 15:47] LABS: Anion Gap 5 (5-15); BUN 11 mg/dL (7-18); BUN/Creat Ratio 12.6 RATIO (10-20); Calcium,Total 8.9 mg/dL (8.5-10.1); Chloride 109 mmol/L (98-107); Creatinine, Serum 0.87 mg/dL (0.55-1.02); EST Glomerular Filtration Rate 84 mL/min (>60); Est Glom Filt Rate - Afr Amer 102 mL/min (>60); Glucose 87 mg/dL (74-106); Potassium 3.7 mmol/L (3.5-5.1); Prolactin 20.5 ng/mL; Sodium Level 140 mmol/L (136-145); Thyroid Stim Hormone (TSH) 2.66 uIU/mL (0.358-3.74)
== END | disposition home or self-care (01) ==
LOC: MTLAB 12:12
PROVIDERS: PCP Family Medicine; Referring Provider Nurse Practitioner Family; Visit Provider Nurse Practitioner Family
DX: N64.52 Nipple discharge (principal)
CPT/HCPCS: 36415; 80048; 84146; 84443

== ENCOUNTER → 2020-06-07 11:50 | Outpatient (CLI) | payer MEDICAID, SELFPAY ==
[2020-06-07 15:42] LABS: Absolute Lymphocyte Count 3.13 X10^3/uL (0.83-4.51); Absolute Neutrophil Count 6.4 X10^3/uL (2.0-7.7); Basophil# 0.05 X10^3/uL; Basophil% 0.5 % (0-1); Eosinophil# 0.14 X10^3/uL; Eosinophils% 1.3 % (0-5); Hematocrit 41.8 % (37-47); Hemoglobin 13.8 g/dL (12.0-15.0); Lymphocyte # 3.13 X10^3/ul (4.0); Lymphocyte % 29.4 % (19-41); Mean Corpuscular Hgb 28.7 pg (27.0-32.0); Mean Corpuscular Volume 86.9 fL (81-99); Mean Platelet Vol. 11.4 fl (6.2-12.0); Monocyte# 0.89 X10^3/uL; Monocyte% 8.4 % (0-10); NRBC Flagged by Analyzer 0 % (0-5); Neutrophil # 6.41 X10^3/uL (2.7-7.7); Neutrophil % 60.1 % (47-70); Platelet Count 199 K/mm3 (150-450); RBC Distribution Width CV 12.2 % (11.6-14.6); RBC Distribution Width SD 39.3 fl (35.1-43.9); Red Blood Count 4.81 M/mm3 (4.2-5.4); White Blood Count 10.7 K/mm3 (4.4-11.0)
[2020-06-07 16:10] LABS: ALB/GLOB Ratio 1.2 RATIO (0.9-2.4); AST(SGOT) 16 U/L (15-37); Alanine Aminotransfer ALT/SGPT 20 U/L (13-56); Albumin, Serum 4.5 g/dL (3.2-5.0); Alkaline Phosphatase 56 U/L (45-117); Anion Gap 4 (5-15); BUN 14 mg/dL (7-18); BUN/Creat Ratio 14.3 RATIO (10-20); Calcium,Total 9.4 mg/dL (8.5-10.1); Chloride 106 mmol/L (98-107); Creatinine, Serum 0.98 mg/dL (0.55-1.02); EST Glomerular Filtration Rate 73 mL/min (>60); Est Glom Filt Rate - Afr Amer 89 mL/min (>60); Globulin 3.6 g/dL (2.2-4.2); Glucose 92 mg/dL (74-106); Potassium 3.1 mmol/L (3.5-5.1); Protein, Total 8.1 g/dL (6.4-8.2); Sodium Level 139 mmol/L (136-145)
[2020-06-09 21:04] LABS: EBV Acute VCA IgM < 36.0 U/mL (0.0-35.9); EBV Nuclear Antigen IgG 22.3 U/mL (0.0-17.9); EBV-VCA IgG > 600.0 U/mL (0.0-17.9)
== END ==
PROVIDERS: PCP Family Medicine; Visit Provider Family Medicine
DX: J02.9 Acute pharyngitis, unspecified (principal)
CPT/HCPCS: 36415; 80053; 85025; 86664; 86665; 87070

== ENCOUNTER 2020-06-07 14:05 | Emergency (ER) | payer MEDICAID, SELFPAY ==
[2020-06-07 14:06] VITALS: BP 142/95; PULSE 125; RESP 16; TEMP 36.6; O2SAT 99; BMI 26.5
--- NOTE | 2020-06-07 15:05 | ED.DEP ---
ED Disposition - Plan for ED Patient: Instructions: Understanding STDs Referrals: Ethan Valderrama MD [Primary Care Provider] -
[2020-06-07 15:10] VITALS: PULSE 115
--- NOTE | 2020-06-07 15:11 | ED.RN ---
DISCHARGE INSTRUCTIONS GIVEN TO AND REVIEWED WITH PATIENT, PATIENT DENIES QUESTIONS OR CONCERNS AND VOICES UNDERSTANDING OF DISCHARGE INSTRUCTIONS. PT AMBULATES OUT OF ROOM WITHOUT DIFFICULTY.
--- NOTE | 2020-06-07 15:18 | ED.VISSUMM ---
- ER Visit Summary Date of Service: 06/07/20 Chief Complaint: Wants STD check History of Present Illness: The patient is a 25 F presenting wanting an STD check. She states that she was at her primary care physician's office for sore throat but forgot to mention that she was concerned about STDs. She states her partner cheated on her. She has had unprotected sex with him. She denies vaginal discharge or rash. Denies other complaints. Physical Examination: Vitals are stable. Patient is afebrile. Alert no acute distress. HEENT exam is unremarkable. Pharynx is normal Neck is supple. Lungs are clear and equal bilaterally. Heart is regular rate and rhythm. Abdomen is soft nontender nondistended. No guarding or rebound Extremities are unremarkable. Skin is warm and dry. Remainder of exam is unremarkable. Emergency Department Course and Treatment: Gonorrhea chlamydia is pending. Patient is advised follow-up with her primary care physician. Advised return to the ED for worsening complaints. Disposition: Discharge home Impression: Concern for STD This note was generated with [employer] dictation software. It may contain incorrect words, spelling, and punctuation that were not noted in review of the chart prior to signing ED Disposition - Plan for ED Patient: Disposition: Home or Assisted Living Instructions: Understanding STDs Referrals: Ethan Valderrama MD [Primary Care Provider] -
[2020-06-07 17:19] LABS: Chlamydia Trachomatis by PCR Negative (Negative); Neisserai gonorrhoeae by PCR Positive (Negative); Probe Check PASS
== END 2020-06-07 15:11 | disposition home or self-care (01) ==
PROVIDERS: Emergency Provider Emergency Medicine; PCP Family Medicine
DX: Z71.1 Person with feared health complaint in whom no diagnosis is made (principal); Z72.0 Tobacco use; J02.9 Acute pharyngitis, unspecified
CPT/HCPCS: 36415; 80053; 85025; 86664; 86665; 87070; 87077; 87491; 87591; 99282

== ENCOUNTER → 2020-06-15 15:52 | Outpatient (CLI) | payer MEDICAID, SELFPAY ==
[2020-06-07 14:06] VITALS: BMI 26.5
[2020-06-15 17:47] LABS: Absolute Lymphocyte Count 1.74 X10^3/uL (0.83-4.51); Absolute Neutrophil Count 3.3 X10^3/uL (2.0-7.7); Basophil# 0.02 X10^3/uL; Basophil% 0.4 % (0-1); Eosinophil# 0.07 X10^3/uL; Eosinophils% 1.3 % (0-5); Hematocrit 42.4 % (37-47); Hemoglobin 14.5 g/dL (12.0-15.0); Lymphocyte # 1.74 X10^3/ul (4.0); Lymphocyte % 31.7 % (19-41); Mean Corp Hgb Conc 34.2 g/dL (32-36); Mean Corpuscular Volume 84.8 fL (81-99); Mean Platelet Vol. 11.2 fl (6.2-12.0); Monocyte% 5.5 % (0-10); NRBC Flagged by Analyzer 0 % (0-5); Neutrophil # 3.34 X10^3/uL (2.7-7.7); Neutrophil % 60.7 % (47-70); Platelet Count 232 K/mm3 (150-450); RBC Distribution Width CV 11.9 % (11.6-14.6); RBC Distribution Width SD 36.7 fl (35.1-43.9); White Blood Count 5.5 K/mm3 (4.4-11.0)
[2020-06-15 18:32] LABS: HIV - WCH Non-Reactive (Nonreactive)
[2020-06-16 03:03] LABS: Rapid Plasmin Reagin (RPR) NONREACTIVE (NONREACTIVE)
[2020-06-17 20:07] LABS: Chlamydia By Nucleic Acid AMP Negative (Negative); HEPATITIS B SURFACE AG Negative (Negative); Hepatitis A AB, Total Negative (Negative); Hepatitis A IgM Antibody Negative (Negative); Hepatitis B Core AB IgM Negative (Negative); Hepatitis B Core Ab Total Negative (Negative); Hepatitis C Ab <0.1 s/co ratio (0.0-0.9)
[2020-06-17 20:23] LABS: Gonococcus By Nucleic Acid AMP Negative (Negative); Hep B Surface Antibodies Non Reactive (.)
== END ==
PROVIDERS: PCP Family Medicine; Referring Provider Family Medicine; Visit Provider Family Medicine
DX: J02.9 Acute pharyngitis, unspecified (principal); Z76.89 Persons encountering health services in other specified circumstances
CPT/HCPCS: 36415; 85025; 86592; 86703; 86704; 86705; 86706; 86708; 86709; 86803; 87340; 87491; 87591

== ENCOUNTER 2020-06-19 16:29 | Emergency (ER) | payer MEDICAID, SELFPAY ==
[2020-06-19 16:30] VITALS: BP 143/81; PULSE 111; RESP 16; TEMP 36.7; O2SAT 100; BMI 21.6
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
--- NOTE | 2020-06-19 17:55 | ED.DEP ---
ED Disposition - Plan for ED Patient: Instructions: ED Back Sprain/Strain Prescriptions: cycloBENZAPRine HCl [Flexeril] 10 mg PO TID PRN #20 tab PRN Reason: Muscle Spasm Prescription Printed Naproxen [Naprosyn] 500 mg PO BID PRN #20 tab Prescription Printed Referrals: Ethan Valderrama MD [Primary Care Provider] - 5-7 Days
[2020-06-19] MEDS: Ceftriaxone 500 MG Vial 250 MG IM (18:17)
== END 2020-06-19 18:38 | disposition home or self-care (01) ==
LOC: ED 16:58
PROVIDERS: Emergency Provider Emergency Medicine; PCP Family Medicine
DX: S39.012A Strain of muscle, fascia and tendon of lower back, initial encounter (principal); A54.9 Gonococcal infection, unspecified; Z72.0 Tobacco use; V43.52XA Car driver injured in collision with other type car in traffic accident, initial encounter; Y93.I9 Activity, other involving external motion; Y92.410 Unspecified street and highway as the place of occurrence of the external cause; Y99.8 Other external cause status
CPT/HCPCS: 72100; 72170; 96372; 99282

== ENCOUNTER 2020-06-22 16:43 | Emergency (ER) | payer MEDICAID, SELFPAY ==
[2020-06-22 16:43] VITALS: BP 135/97; PULSE 87; RESP 18; TEMP 35.9; O2SAT 99
[2020-06-22 16:44] VITALS: BP 135/97; PULSE 90; RESP 18; TEMP 35.9; O2SAT 99; BMI 21.3
--- NOTE | 2020-06-22 16:59 | ED.VISSUMM ---
- ER Visit Summary Date of Service: 06/22/20 Chief Complaint: Headache History of Present Illness: The patient is a [address] Strong. She reports that she has a headache that began approximately 1 hour ago and is gradually worsened. Is a throbbing pain over the right sikhism and posterior to her right eye. Is 10 of 10 severity. She has phono and photophobia. She been nauseated has not vomited. States that prior to this she did see or observe the vision from her right eye. She states that she got these headaches frequently when she was on Depo in 2015. She then began getting them again in April 2020. She had 2 last month and this is the third this month. Patient denies any recent injury to her head. She denies any fever. Physical Examination: Vitals: Stable. Afebrile. General: Well-nourished and well-developed. Head: Normocephalic atraumatic. Neck: Supple, no lymphadenopathy. No JVD. Nontender. Cardiovascular: Regular rate and rhythm. No murmurs. Respiratory: No respiratory distress. Clear to auscultation bilaterally. Abdominal: Soft, nontender, nondistended, normal bowel sounds. No guarding, rebound, or peritoneal signs. Back: Nontender. Extremities: Nontender, no edema. Skin: Normal color, no rash. Neurologic: Alert and oriented ?3. Cranial nerves II through XII are intact. Normal strength and sensation. Psych: Normal affect. Test Results: test is negative. Emergency Department Course and Treatment: Patient had an IV placed. She was given a liter normal saline. She was given Toradol, Reglan, and Benadryl IV. She is resting more comfortably. Treatment Plan: Patient be discharged with Reglan and instructed to follow-up with her primary care physician in 1 to 2 days if not improving. Return to the emergency department for any worsening symptoms. Disposition: To home in improved and stable condition. Impression: 1. Cephalgia, recurrent. This note was generated with [employer] dictation software. It may contain incorrect words, spelling, and punctuation that were not noted in review of the chart prior to signing ED Disposition - Plan for ED Patient: Instructions: ED Headache Unspecified Prescriptions: Metoclopramide [Reglan] 10 mg PO 4X/DAY PRN #20 tab PRN Reason: Headache Referrals: Ethan Valderrama MD [Primary Care Provider] - 1-2 Days if not improving
[2020-06-22] MEDS: DiphenhydrAMINE 50 MG/ML Syringe IV (17:10)
[2020-06-22] MEDS: Ketorolac 15 MG/ML Vial IV (17:11)
[2020-06-22] MEDS: 0.9% Normal Saline 1,000 ML 999 ML IV (17:11)
[2020-06-22] MEDS: Metoclopramide 10 MG/2 ML Vial IV (17:14)
[2020-06-22 17:30] LABS: Internal QC Validated? YES +Cl - CLEAR BKGD; Pregnancy, Serum, hCG Quali. NEGATIVE Negative
[2020-06-22 18:27] VITALS: BP 128/95; PULSE 86; RESP 15; O2SAT 100
== END 2020-06-22 18:28 | disposition home or self-care (01) ==
LOC: ED 17:18
PROVIDERS: Emergency Provider Emergency Medicine; PCP Family Medicine
DX: R51.9 Headache, unspecified (principal); Z72.0 Tobacco use
CPT/HCPCS: 84703; 96361; 96374; 96375; 99283; J7030; A4216

== ENCOUNTER → 2020-07-04 12:26 | Outpatient (CLI) | payer MEDICAID, SELFPAY ==
[2020-06-22 16:44] VITALS: BMI 21.3
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
[2020-07-04 17:17] LABS: Chlamydia Trachomatis by PCR Negative (Negative); Neisserai gonorrhoeae by PCR Negative (Negative); Probe Check PASS; Sample Adequacy Control PASS; Specimen Processing Control PASS
== END ==
PROVIDERS: PCP Family Medicine; Referring Provider Family Medicine; Visit Provider Family Medicine
DX: A74.9 Chlamydial infection, unspecified (principal); S16.1XXA Strain of muscle, fascia and tendon at neck level, initial encounter
CPT/HCPCS: 72052; 87491; 87591

== ENCOUNTER 2020-07-26 15:53 | Outpatient (RCR) | payer MEDICAID, SELFPAY ==
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
--- NOTE | 2020-10-17 18:02 | HP.PT.NRP ---
MARLON ANA GRANGER was seen in my office for initial evaluation on 08/03/20. The following Plan of Care was established for this patient: Initial Frequency: 2x /Week Initial Duration: 4 Weeks Patient/Client Instruction: Educate patient on: Condition, Plan of Care, Risk Factors, Benefits of Fitness Program For the Purpose of:: To improve decision making, To facilitate caregiver knowledge, To improve self management, To prevent re-injury, To improve ability to perform tasks related to life management, To improve tolerance to ADL's Therapeutic Exercise to Include: Strength training, Power training, Body mechanics, Postural training, Flexibilty training, Passive ROM, Active ROM, Pat Exercises, Scapular Strength/Stabilization For the Purpose of:: To decrease pain, To increase ROM, To improve nutrient delivery to tissue, To increase oxygenation perfusion, To improve muscle performance and motor function, To improve ability to perform ADL's, To increase tolerance to activity/condition/position, To improve health of tissue, To decrease soft tissue restriction, To increase flexibility/ROM Manual Therapy Techniques to Include: Mobilization, Passive ROM, Soft tissue mobilization For the Purpose of:: To decrease pain, To decrease swelling/inflammation, To increase ROM, To increase oxygenation perfusion, To improve muscle performance and motor function This patient was last seen in our office 07/26/20. Pertinent comments regarding their Physical therapy will appear below: Pt. came to her initial evaluation for her neck pain. She did not attend her next appointment and has not been seen in ~3 months. Pt. will be DC back to physician at this point in time. At this point I will be discontinuing this patient from physical therapy. I would be happy to see this patient again in the future if found appropriate by the physician. Thank you! Jhony Leyva, BETTYET
== END 2020-07-26 19:00 | disposition home or self-care (01) ==
LOC: PT 15:53
PROVIDERS: PCP Family Medicine; Referring Provider Family Medicine; Visit Provider Family Medicine
DX: S16.1XXA Strain of muscle, fascia and tendon at neck level, initial encounter (principal)
CPT/HCPCS: 97161

== ENCOUNTER 2020-10-01 21:13 | Emergency (ER) | payer MEDICAID, SELFPAY ==
[2020-10-01 21:14] VITALS: BP 121/79; PULSE 89; PULSE 98; RESP 16; TEMP 36.4; O2SAT 100; BMI 20.9
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
[2020-10-01] MEDS: Naproxen 500 MG Tablet PO (22:06)
[2020-10-01 22:08] LABS: Bacteria 0 SEEN /hpf (None Seen); Mucous, Urine 0 SEEN /hpf (<or=2+); Red Blood Cells-Urine 0 SEEN /hpf (0-5); White Blood Cells 0 SEEN /hpf (0-5)
[2020-10-01 22:09] LABS: Color, Urine Yellow (Yellow); Glucose, Dipstick Normal (Normal); Ketone-Dipstick Negative (Negative); Leukocyte Esterase-Dipstick Negative /ul (Negative); Nitrite-Dipstick Negative (Negative); Occult Blood-Urine Negative /ul (Negative); Protein-Dipstick Negative (Negative); Urine Bilirubin Dipstick Negative (Negative); Urine Clarity Clear (Clear); Urine Urobilinogen Normal (Normal)
[2020-10-01 22:23] LABS: Squamous Epithelial Cells - UA 0-5 SEEN /hpf (5-10)
[2020-10-01 22:24] LABS: Internal QC Validated? YES +Cl - CLEAR BKGD; Pregnancy, Urine Negative Negative
[2020-10-01 22:43] VITALS: BP 120/68; PULSE 86; RESP 18; O2SAT 96
== END 2020-10-01 22:43 | disposition home or self-care (01) ==
PROVIDERS: Emergency Provider Emergency Medicine; PCP Family Medicine
DX: R10.9 Unspecified abdominal pain (principal); F17.200 Nicotine dependence, unspecified, uncomplicated
CPT/HCPCS: 81001; 81025; 99283

== ENCOUNTER → 2020-10-17 15:46 | Outpatient (CLI) | payer MEDICAID, SELFPAY ==
[2020-10-01 21:14] VITALS: BMI 20.9
[2020-10-17 17:44] LABS: Hematocrit 42.1 % (37-47); Hemoglobin 14.1 g/dL (12.0-15.0); Mean Corp Hgb Conc 33.5 g/dL (32-36); Mean Corpuscular Hgb 29.1 pg (27.0-32.0); Platelet Count 226 K/mm3 (150-450); RBC Distribution Width CV 12.2 % (11.6-14.6); RBC Distribution Width SD 39.4 fl (35.1-43.9); Red Blood Count 4.84 M/mm3 (4.2-5.4); White Blood Count 6.2 K/mm3 (4.4-11.0)
[2020-10-17 19:29] LABS: Chlamydia Trachomatis by PCR Negative (Negative); Neisserai gonorrhoeae by PCR Negative (Negative); Probe Check PASS; Sample Adequacy Control PASS; Specimen Processing Control PASS; Trichomonas Vag DNA by PCR Negative (Negative)
[2020-10-18 08:28] LABS: HIV - WCH Non-Reactive (Nonreactive); Syphilis Antibodies Non-reactive
== END ==
PROVIDERS: PCP Family Medicine; Visit Provider Family Medicine
DX: T14.8XXA Other injury of unspecified body region, initial encounter (principal); R35.0 Frequency of micturition; Z11.3 Encounter for screening for infections with a predominantly sexual mode of transmission
CPT/HCPCS: 36415; 85027; 86703; 86780; 87086; 87088; 87491; 87591; 87661

== ENCOUNTER → 2020-11-18 | Outpatient (CLI) | payer MEDICAID, SELFPAY | END | disposition home or self-care (01) | LOC: LABSPEC 11:56 | PROVIDERS: PCP Family Medicine; Visit Provider Obstetrics & Gynecology | DX: Z11.3 Encounter for screening for infections with a predominantly sexual mode of transmission (principal) ==

== ENCOUNTER → 2020-12-14 10:08 | Outpatient (CLI) | payer MEDICAID, SELFPAY ==
[2020-12-14 12:30] LABS: Ferritin 15 ng/mL (8-252); Iron 112 ug/dL (50-170); Thyroid Stim Hormone (TSH) 1.09 uIU/mL (0.358-3.74)
[2020-12-14 14:22] LABS: Chlamydia Trachomatis by PCR Negative (Negative); Neisserai gonorrhoeae by PCR Negative (Negative); Probe Check PASS; Sample Adequacy Control PASS; Specimen Processing Control PASS
== END ==
PROVIDERS: PCP Family Medicine; Referring Provider Family Medicine; Visit Provider Family Medicine
DX: R68.89 Other general symptoms and signs (principal); Z11.3 Encounter for screening for infections with a predominantly sexual mode of transmission
CPT/HCPCS: 36415; 82728; 83540; 84443; 87491; 87591

== ENCOUNTER → 2021-01-09 09:42 | Outpatient (CLI) | payer MEDICAID, SELFPAY ==
[2021-01-09 12:10] LABS: Hematocrit 41.4 % (37-47); Mean Corp Hgb Conc 33.8 g/dL (32-36); Mean Corpuscular Hgb 28.9 pg (27.0-32.0); Mean Corpuscular Volume 85.5 fL (81-99); Platelet Count 259 K/mm3 (150-450); RBC Distribution Width CV 12.4 % (11.6-14.6); RBC Distribution Width SD 38.7 fl (35.1-43.9); Red Blood Count 4.84 M/mm3 (4.2-5.4); White Blood Count 7.7 K/mm3 (4.4-11.0)
[2021-01-09 12:40] LABS: Prolactin 12.7 ng/mL; Thyroid Stim Hormone (TSH) 1.89 uIU/mL (0.358-3.74)
[2021-01-09 12:45] LABS: hCG Titer Quant., Serum < 1 mIU/mL (1-3)
== END ==
PROVIDERS: PCP Family Medicine; Visit Provider Family Medicine
DX: N64.52 Nipple discharge (principal)
CPT/HCPCS: 36415; 84146; 84443; 84702; 85027

== ENCOUNTER → 2021-02-16 | Outpatient (CLI) | payer MEDICAID, SELFPAY | END | disposition home or self-care (01) | LOC: LABSPEC 12:15 | PROVIDERS: PCP Family Medicine; Referring Provider Physician Assistant; Visit Provider Physician Assistant | DX: U07.1 COVID-19 (principal) | CPT/HCPCS: 87635; U0005; U0003 ==

== ENCOUNTER → 2021-02-17 | Outpatient (CLI) | payer MEDICAID, SELFPAY | END | disposition home or self-care (01) | PROVIDERS: PCP Family Medicine; Referring Provider Physician Assistant; Visit Provider Physician Assistant | DX: U07.1 COVID-19 (principal) | CPT/HCPCS: 87635; U0005; U0003 ==

== ENCOUNTER → 2021-02-28 | Outpatient (CLI) | payer MEDICAID, SELFPAY | END | disposition home or self-care (01) | LOC: LABSPEC 11:10 | PROVIDERS: PCP Family Medicine; Referring Provider Physician Assistant Surgical; Visit Provider Physician Assistant Surgical | DX: U07.1 COVID-19 (principal) | CPT/HCPCS: 87635; U0005; U0003 ==

== ENCOUNTER → 2021-03-09 12:29 | Outpatient (CLI) | payer MEDICAID, SELFPAY ==
[2021-03-09 15:54] LABS: HIV - WCH Non-Reactive (Nonreactive); Syphilis Antibodies Non-reactive
[2021-03-09 17:27] LABS: Chlamydia Trachomatis by PCR Negative (Negative); Probe Check PASS; Sample Adequacy Control PASS; Specimen Processing Control PASS
[2021-03-09 17:28] LABS: Probe Check PASS; Sample Adequacy Control PASS; Specimen Processing Control PASS; Trichomonas Vag DNA by PCR Negative (Negative)
== END ==
PROVIDERS: PCP Family Medicine; Referring Provider Family Medicine; Visit Provider Family Medicine
DX: Z11.3 Encounter for screening for infections with a predominantly sexual mode of transmission (principal)
CPT/HCPCS: 36415; 86703; 86780; 87491; 87661

== ENCOUNTER → 2021-04-04 | Outpatient (CLI) | payer MEDICAID, SELFPAY | END | disposition home or self-care (01) | PROVIDERS: Visit Provider Registered Nurse | DX: N89.8 Other specified noninflammatory disorders of vagina (principal) | CPT/HCPCS: 87070; 87086; 87088; 87205 ==

== ENCOUNTER 2021-06-21 11:31 | Outpatient (CLI) | payer MEDICAID, SELFPAY ==
[2021-06-21 12:34] LABS: Hematocrit 41.7 % (37-47); Hemoglobin 14.9 g/dL (12.0-15.0); Mean Corp Hgb Conc 35.7 g/dL (32-36); Mean Corpuscular Hgb 30.4 pg (27.0-32.0); Mean Corpuscular Volume 85.1 fL (81-99); Mean Platelet Vol. 10.6 fl (6.2-12.0); Platelet Count 253 K/mm3 (150-450); RBC Distribution Width CV 11.9 % (11.6-14.6); RBC Distribution Width SD 37.2 fl (35.1-43.9); White Blood Count 6.6 K/mm3 (4.4-11.0)
== END 2021-06-21 23:59 | disposition home or self-care (01) ==
PROVIDERS: Visit Provider Obstetrics & Gynecology
DX: Z11.3 Encounter for screening for infections with a predominantly sexual mode of transmission (principal)
CPT/HCPCS: 36415; 84443; 85027

== ENCOUNTER 2021-08-02 13:37 | Outpatient (CLI) | payer MEDICAID, SELFPAY ==
[2021-08-05 00:07] LABS: Chlamydia By Nucleic Acid AMP Negative (Negative)
[2021-08-05 09:08] LABS: Gonococcus By Nucleic Acid AMP Negative (Negative)
[2021-08-09 13:59] LABS: HPV APTIMA, High Risk Positive (Negative)
[2021-08-09 15:06] LABS: HPV Reflexed? YES, CHARGE PATIENT
== END 2021-08-02 23:59 | disposition home or self-care (01) ==
LOC: LABSPEC 13:41
PROVIDERS: Visit Provider Obstetrics & Gynecology
DX: Z12.4 Encounter for screening for malignant neoplasm of cervix (principal); Z11.3 Encounter for screening for infections with a predominantly sexual mode of transmission
CPT/HCPCS: 87491; 87591; 87624; 88175; G0145

== ENCOUNTER → 2021-08-31 | Outpatient (CLI) | payer MEDICAID, SELFPAY ==
[2021-08-31 21:07] LABS: Chlamydia Trachomatis by PCR Negative (Negative); Neisserai gonorrhoeae by PCR Negative (Negative)
[2021-08-31 21:08] LABS: Probe Check PASS; Sample Adequacy Control PASS; Specimen Processing Control PASS
== END | disposition home or self-care (01) ==
PROVIDERS: PCP Family Medicine; Referring Provider Family Medicine; Visit Provider Family Medicine
DX: R35.0 Frequency of micturition (principal)
CPT/HCPCS: 87086; 87491; 87591

== ENCOUNTER → 2021-10-31 | Outpatient (CLI) | payer MEDICAID, SELFPAY | END | disposition home or self-care (01) | PROVIDERS: PCP Family Medicine; Visit Provider Obstetrics & Gynecology | DX: N76.0 Acute vaginitis (principal); Z11.3 Encounter for screening for infections with a predominantly sexual mode of transmission | CPT/HCPCS: 87086; 87088 ==

== ENCOUNTER → 2022-02-01 | Outpatient (CLI) | payer MEDICAID, SELFPAY | END | disposition home or self-care (01) | PROVIDERS: PCP Family Medicine; Referring Provider Family Medicine; Visit Provider Family Medicine | DX: N76.0 Acute vaginitis (principal) | CPT/HCPCS: 87070; 87205 ==

== ENCOUNTER → 2022-03-22 | Outpatient (CLI) | payer MEDICAID, SELFPAY ==
[2022-03-22 13:16] LABS: HIV - WCH Non-Reactive (Nonreactive); Hepatitis B Surface Antibody Non-Reactive; Syphilis Antibodies Non-reactive
[2022-03-23 04:07] LABS: HEPATITIS B SURFACE AG Negative (Negative); Hep C Antibodies <0.1 s/co ratio (0.0-0.9); Hepatitis A IgM Antibody Negative (Negative); Hepatitis B Core AB IgM Negative (Negative)
[2022-03-23 15:37] LABS: Hepatitis A AB, Total Negative (Negative)
== END | disposition home or self-care (01) ==
PROVIDERS: PCP Family Medicine; Visit Provider Obstetrics & Gynecology
DX: Z11.3 Encounter for screening for infections with a predominantly sexual mode of transmission (principal)
CPT/HCPCS: 36415; 80074; 86703; 86706; 86708; 86780

== ENCOUNTER → 2022-05-09 | Outpatient (CLI) | payer MEDICAID, SELFPAY | END | disposition home or self-care (01) | PROVIDERS: PCP Family Medicine; Visit Provider Obstetrics & Gynecology | DX: N76.0 Acute vaginitis (principal) ==

== ENCOUNTER → 2022-09-13 | Outpatient (CLI) | payer MEDICAID, SELFPAY ==
[2022-09-22 04:07] LABS: HPV APTIMA, High Risk Positive (Negative); HPV Genotype 16, Aptima Negative (Negative); HPV Genotype 18,45 Aptima Negative (Negative)
== END | disposition home or self-care (01) ==
LOC: WOBLAB 15:23
PROVIDERS: PCP Family Medicine; Visit Provider Obstetrics & Gynecology
DX: Z12.4 Encounter for screening for malignant neoplasm of cervix (principal)
CPT/HCPCS: 87624; 88175; G0145

== ENCOUNTER → 2022-10-16 | Outpatient (CLI) | payer MEDICAID, SELFPAY ==
--- NOTE | 2022-10-16 | IMM_PTH ---
PATIENT: MARLON GRANGER LOC: [facility] U#:[id number] AGE/SX: 27/F ROOM: RE10/16/[address]: Dr. Albert Mayers MD : 1995 BED: DIS: 10/16/2022 SPEC #: [id number] RECD: 10/18/22 12:50 STATUS: MARY REQ #: [id number] ALVINO: 10/16/22 00:[address]: Albert Mayers DEPT: IMMUNOHISTOCHEMISTRY RECD BY: Catherine Schmitt ENTERED: 10/18/22 12:50 SP TYPE: IMMUNO OTHR DR: Dr. Damian Major MD Tissues: A - Uterine cervix, NOS Procedures: p16 (initial) KI-67 (add) PHYSICIAN & [place] [id number] SPECIMEN INFORMATION: Tissue Source: A ? Cervical biopsy Clinical Info: Abnormal uterine bleeding Specimen Number: [id number] CPT code: 47168, 29548 METHODOLOGY: Deparaffinized sections of prefer/formalin-fixed tissue or PAP/DQ stained slides are incubated with monoclonal/polyclonal antibodies/oligonucleotide probes. Localization is made via biotin free immunoperoxidase method. Appropriate controls are performed and reacted as expected. Results on target cell population are indicated in the following table: RESULTS: ANTIBODY / CLONE RESULT Block A P16 (E6H4) positive, focal, patchy staining Ki-67 (30-9) positive, low These tests were developed and their performance characteristics determined by [facility]. They may not have been cleared or approved by the U.[place]. Food and Drug Administration. The FDA has determined that such clearance or approval is not necessary. The above immunohistochemical/dualISH markers are ordered and reviewed by the Pathologist. INTERPRETATION: A. Cervical biopsy: Focal changes suspicious for HPV cytopathic effects. SJ:nitin 10/19/2022
--- NOTE | 2022-10-16 14:20 | CER_PTH ---
PATIENT: MARLON GRANGER LOC: [facility] #:[id number] AGE/SX: 27/F ROOM: RE10/16/[address]: Dr. Albert Mayers MD : 1995 BED: DIS: 10/16/2022 SPEC #: [id number] RECD: 10/17/22 08:39 STATUS: MARY REQ #: [id number] ALVINO: 10/16/22 14:[address]: Albert Mayers DEPT: SURGICAL PATHOLOGY RECD BY: Kymberly Minor ENTERED: 10/17/22 08:39 SP TYPE: CERV OTHR DR: Dr. Damian Major MD Tissues: A - Uterine cervix, NOS B - Endocervical Procedures: Surgery Specimen Level IV HEADER OPERATION: Colposcopy PRE-OP DIAGNOSIS: Abnormal uterine bleeding N93.9 TISSUE SUBMITTED: A ? Cervical biopsy, 1, 5, 7 & 11 o?clock, B ? Endocervical curettings MICROSCOPIC DIAGNOSIS A. Cervix, 1, 5, 7 & 11 o?clock, biopsy: Focal changes suspicious for HPV cytopathic effects. Moderate chronic inflammation and mild acute inflammation. See comment. B. Endocervical curettings: Scant fragment of benign ecto- and endocervical epithelium, blood and mucous, negative for dysplasia. VENANCIO:nitin 10/18/2022 COMMENT A. Immunohistochemistry ([id number]) for surrogate HPV marker (p16) supports the above diagnosis. MICROSCOPIC DESCRIPTION Slides are reviewed. GROSS DESCRIPTION A - Received in fixative is one container labeled with the patient's name and designated cervical biopsy. The specimen consists of multiple irregular fragments of light bhakta soft tissue that in aggregate measure 1.2 x 0.6 x 0.2 cm. The specimen is totally submitted in one cassette. B - Received in fixative is one container labeled with the patient's name and designated ECC. The specimen consists of multiple irregular fragments of bhakta mucoid tissue that in aggregate measure 1.5 x 0.2 x <0.1 cm. The specimen is totally submitted in one cassette. / VENANCIO:nitin 10/17/2022 TC:5 CPT: 23733 x2
== END | disposition home or self-care (01) ==
LOC: LABSPEC 14:30
PROVIDERS: PCP Family Medicine; Visit Provider Obstetrics & Gynecology
DX: N93.9 Abnormal uterine and vaginal bleeding, unspecified (principal); N72 Inflammatory disease of cervix uteri
CPT/HCPCS: 88305; 88341; 88342

== ENCOUNTER → 2022-12-26 | Outpatient (CLI) | payer MEDICAID, SELFPAY ==
[2022-12-27 00:26] LABS: Probe Check PASS; Sample Adequacy Control PASS; Specimen Processing Control PASS; Trichomonas Vag DNA by PCR Negative (Negative)
== END | disposition home or self-care (01) ==
PROVIDERS: PCP Family Medicine; Visit Provider Family Medicine
DX: N89.8 Other specified noninflammatory disorders of vagina (principal)
CPT/HCPCS: 87070; 87077; 87205; 87491; 87591; 87661

== ENCOUNTER → 2023-07-11 | Outpatient (CLI) | payer MEDICAID, SELFPAY ==
[2023-07-11 15:37] LABS: Absolute Lymphocyte Count 1.56 X10^3/uL (0.83-4.51); Absolute Neutrophil Count 4.3 X10^3/uL (2.0-7.7); Basophil# 0.05 X10^3/uL; Basophil% 0.8 % (0-1); Eosinophil# 0.04 X10^3/uL; Eosinophils% 0.6 % (0-5); Hematocrit 42.4 % (37-47); Hemoglobin 14.2 g/dL (12.0-15.0); Lymphocyte # 1.56 X10^3/ul (0.83-4.51); Lymphocyte % 24.1 % (19-41); Mean Corp Hgb Conc 33.5 g/dL (32-36); Mean Corpuscular Hgb 28.6 pg (27.0-32.0); Mean Corpuscular Volume 85.5 fL (81-99); Mean Platelet Vol. 11.3 fl (6.2-12.0); Monocyte% 7.7 % (0-10); NRBC Flagged by Analyzer 0 % (0-5); Neutrophil % 66.6 % (47-70); Platelet Count 243 K/mm3 (150-450); RBC Distribution Width CV 12.5 % (11.6-14.6); RBC Distribution Width SD 38.8 fl (35.1-43.9); Red Blood Count 4.96 M/mm3 (4.2-5.4); White Blood Count 6.5 K/mm3 (4.4-11.0)
--- OUTSIDE RECORDS SUMMARY | 2023-07-11 19:36 | XMS RPT_ITS | CCD ---
Author Name Unknown Address [address] [place] [address] Organization [facility] Care Team Providers Care Drop Wire Aliner Name Role Phone PHYSICIAN, NONE Primary Care Physician Unavailab le Unavailable Primary Care Provider Angeline Last MD Primary Care Provider Angeline Valderrama MD Primary Care Provider ANGELINE VALDERRAMA Primary Care Unavailabl ANGELINE Sen Primary Care UnavailANGELINE Falcon Primary Care UnavailANGELINE Falcon Primary Care UnavailANGELINE Falcon Primary Care Unavailabl e Allergies Allergy Classification Reported Allergen(s) Allergy Type Date of Onset Reaction(s) Facility (1 source) Penicillin; Translations: [penicillin] Drug Allergy [place] (12 sources) Penicillins; Translations: [PENICILLINS] Drug Allergy 06-07-2020 Other: See Comments [facility] Medications Current Medications Medication Drug Class(es) Dates Sig (Normalized) Sig (Original) acetaminophen 325 mg / HYDROcodone bitartrate 5 mg oral tablet (1 source) Opioid Agonist Start: 05-12-2021 End: 05-15-2021 take 1 tablet by mouth every six hours [facility] 325- 5 mg oral tablet Dose = 1 tab(s), Oral, q6h, # 10 tab(s), 0 Refill(s), Dentalgia, 50 Start Date: 05/12/21 Stop Date: 05/15/21 Status: Ordered clindamycin 150 mg oral capsule (1 source) Lincosamide Antibacterial Start: 05-12-2021 End: 05-17-2021 clindamycin 150 mg oral capsule Dose : 150 mg = 1 cap(s), Oral, q6h, # 20 cap(s), 0 Refill(s), Dentalgia, 50 Start Date: 05/12/21 Stop Date: 05/17/21 Status: Ordered doxycycline monohydrate 100 mg oral capsule (2 sources) Tetracycline-class Drug Start: 08-25-2022 End: 09-01-2022 take 1 capsule by mouth twice daily doxycycline monohydrate (MONODOX) 100 mg capsule Take 1 capsule by mouth twice daily for 7 days. 14 capsule 0 08/25/2022 09/01/2022 Active Completed/Discontinued Medications Medication Drug Class(es) Dates Sig (Normalized) Sig (Original) fluconazole 150 mg oral tablet (1 source) Azole Antifungal Start: 02-19-2023 End: 02-19-2023 fluconazole (DIFLUCAN) 150 mg tablet Take 1 tablet by mouth one time only for 1 dose. Repeat in 3 days as needed. 2 tablet 0 02/19/2023 02/19/2023 Problems Problem Classification Problem Date Documented Date Episodic/Chronic Disorders of teeth and jaw (1 source) Disorder of teeth AND/OR supporting structures; Translations: [Other specified disorders of teeth and supporting structures] Onset: 05-12-2021 Episodic Immunizations and screening for infectious disease (1 source) Exposure to sexually transmissible disorder; Translations: [Contact with and (suspected) exposure to infections with a predominantly sexual mode of transmission] Episodic Inflammatory diseases of female pelvic organs (3 sources) Bacterial vaginosis; Translations: [Acute vaginitis] Episodic Other female genital disorders (1 source) Vaginal discharge; Translations: [Other specified noninflammatory disorders of vagina] 02-19-2023 Episodic Other female genital disorders (1 source) Vaginal discomfort; Translations: [Unspecified condition associated with female genital organs and menstrual cycle] 02-20-2023 Episodic Ovarian cyst (1 source) Cyst of ovary 03-18-2018 Episodic Results Test Name Value Interpretation Reference Range Facil ity Vital Signs Date Time Vital Sign Value Performing Clinician Facility 02-19-2023 15:010400 Body temperature 98.6 [degF] Wendy Goyal APRN.LABORATORY TECHNOLOGIST Work Phone: [facility] 02-19-2023 15:01-0400 Body weight 49.9 kg Wendy Goyal ASSISTANT PRESS OPERATOR OFFSET.LABORATORY TECHNOLOGIST Work Phone: [facility] 02-19-2023 15:01-0400 Diastolic blood pressure 78 mm[Hg] Wendy Goyal ASSISTANT PRESS OPERATOR OFFSET.LABORATORY TECHNOLOGIST Work Phone: [facility] 02-19-2023 15:01-0400 Heart rate 118 /min Wendy Goyal ASSISTANT PRESS OPERATOR OFFSET.LABORATORY TECHNOLOGIST Work Phone: [facility] 02-19-2023 15:01-0400 Respiratory rate 18 /min Wendy Goyal ASSISTANT PRESS OPERATOR OFFSET.LABORATORY TECHNOLOGIST Work Phone: [facility] 02-19-2023 15:01-0400 SaO2% (BldA) [Mass fraction] 96 % Wendy Goyal ASSISTANT PRESS OPERATOR OFFSET.LABORATORY TECHNOLOGIST Work Phone: [facility] 02-19-2023 15:01-0400 Systolic blood pressure 122 mm[Hg] Wendy Goyal ASSISTANT PRESS OPERATOR OFFSET.LABORATORY TECHNOLOGIST Work Phone: [facility] 01-05-2023 09:48-0400 Body temperature 97.39 [degF] Madeline Yanira ASSISTANT PRESS OPERATOR OFFSET.LABORATORY TECHNOLOGIST Work Phone: [facility] 01-05-2023 09:48-0400 Body weight 49.44 kg Madeline Yanira ASSISTANT PRESS OPERATOR OFFSET.LABORATORY TECHNOLOGIST Work Phone: [facility] 01-05-2023 09:48-0400 Diastolic blood pressure 80 mm[Hg] Madeline Yanira ASSISTANT PRESS OPERATOR OFFSET.LABORATORY TECHNOLOGIST Work Phone: [facility] 01-05-2023 09:48-0400 Heart rate 95 /min Madeline Yanira ASSISTANT PRESS OPERATOR OFFSET.LABORATORY TECHNOLOGIST Work Phone: [facility] 01-05-2023 09:48-0400 Respiratory rate 16 /min Madeline Ynaira ASSISTANT PRESS OPERATOR OFFSET.LABORATORY TECHNOLOGIST Work Phone: [facility] 01-05-2023 09:48-0400 SaO2% (BldA) [Mass fraction] 97 % Madeline Yanira ASSISTANT PRESS OPERATOR OFFSET.LABORATORY TECHNOLOGIST Work Phone: [facility] 01-05-2023 09:48-0400 Systolic blood pressure 122 mm[Hg] Madeline Yanira ASSISTANT PRESS OPERATOR OFFSET.LABORATORY TECHNOLOGIST Work Phone: [facility] 11-19-2022 15:01-0400 Body temperature 98.29 [degF] Madeline Yanira ASSISTANT PRESS OPERATOR OFFSET.LABORATORY TECHNOLOGIST Work Phone: [facility] 11-19-2022 15:01-0400 Body weight 49.9 kg Madeline Yanira ASSISTANT PRESS OPERATOR OFFSET.LABORATORY TECHNOLOGIST Work Phone: [facility] 11-19-2022 15:01-0400 Diastolic blood pressure 74 mm[Hg] Madeline Yanira ASSISTANT PRESS OPERATOR OFFSET.LABORATORY TECHNOLOGIST Work Phone: [facility] 11-19-2022 15:01-0400 Heart rate 118 /min Madeline Yanira ASSISTANT PRESS OPERATOR OFFSET.LABORATORY TECHNOLOGIST Work Phone: [facility] 11-19-2022 15:01-0400 Respiratory rate 18 /min Madeline Yanira ASSISTANT PRESS OPERATOR OFFSET.LABORATORY TECHNOLOGIST Work Phone: [facility] 11-19-2022 15:01-0400 SaO2% (BldA) [Mass fraction] 97 % Madeline Yanira ASSISTANT PRESS OPERATOR OFFSET.LABORATORY TECHNOLOGIST Work Phone: [facility] 11-19-2022 15:01-0400 Systolic blood pressure 122 mm[Hg] Madeline Yanira ASSISTANT PRESS OPERATOR OFFSET.LABORATORY TECHNOLOGIST Work Phone: [facility] 08-24-2022 16:18-0400 Body temperature 98.4 [degF] Jeremiah Athy PA-C Work Phone: [facility] 08-24-2022 16:18-0400 Body weight 51.53 kg Jeremiah Athy PA-C Work Phone: [facility] 08-24-2022 16:18-0400 Diastolic blood pressure 70 mm[Hg] Jeremiah Athy PA-C Work Phone: [facility] 08-24-2022 16:18-0400 Heart rate 124 /min Jeremiah Athy PA-C Work Phone: [facility] 08-24-2022 16:18-0400 Respiratory rate 18 /min Jeremiahdarlene Leosirene PA-C Work Phone: [facility] 08-24-2022 16:18-0400 SaO2% (BldA) [Mass fraction] 98 % Jeremiah Leosy PA-C Work Phone: [facility] 08-24-2022 16:18-0400 Systolic blood pressure 122 mm[Hg] Jeremiahdarlene Leosirene PA-C Work Phone: [facility] 05-12-2021 15:13-0500 Body temperature 98.42 [degF] RADHA KIRK MD [place] 05-12-2021 15:13-0500 Diastolic blood pressure 81 mm[Hg] RADHA KIRK MD [place] 05-12-2021 15:13-0500 Heart rate 104 /min RADHA KIRK MD [place] 05-12-2021 15:13-0500 Mean blood pressure 97 mm[Hg] RADHA KIRK MD [place] 05-12-2021 15:13-0500 Respiratory rate 16 /min RADHA KIRK MD [place] 05-12-2021 15:13-0500 Systolic blood pressure 128 mm[Hg] RADHA KIRK MD [place] Encounters Encounter Date Encounter Type Care Provider Facility Start: 05-25-2023 End: 05-25-2023 ambulatory ANGELINE VALDERRAMA Facility:[facility] Start: 02-21-2023 Telephone encounter Brianna Price APRN.CNP Work Phone: [facility] Procedures Date Procedure Procedure Detail Performing Clinician Start: 02-19-2023 BACTERIAL VAGINOSIS NAAT Wendy Goyal ASSISTANT PRESS OPERATOR OFFSET.LABORATORY TECHNOLOGIST Work Phone: Start: 02-19-2023 [place] trichomonas vaginalis amplified probe tech Wendy Goyal ASSISTANT PRESS OPERATOR OFFSET.LABORATORY TECHNOLOGIST Work Phone: Start: 11-19-2022 BACTERIAL VAGINOSIS NAAT Madeline Doyle ASSISTANT PRESS OPERATOR OFFSET.LABORATORY TECHNOLOGIST Work Phone: Start: 11-19-2022 [place] chlamydia trachomatis amplified probe tq Madeline Doyle ASSISTANT PRESS OPERATOR OFFSET.LABORATORY TECHNOLOGIST Work Phone: Start: 08-24-2022 Urine test visual color cmprsn ban Christiansen PA-C Work Phone: Plan of Treatment Date Care Activity Detail Author Start: 01-11-2023 Influenza vaccination [facility] Start: 08-24-2022 End: 10-24-2022 Hepatitis B virus surface Ag [Presence] in Serum HEP B SURF AG [facility] Lab Routine Exposure to STD Expected: 08/24/2022, Expires: 10/24/2022 [facility] Work Phone: Payers Date Payer Category Payer Medicaid [id number] 2022 Medicaid [id number] Social History Date Type Detail Facility Start: 05-01-2018 Light tobacco smoker (finding) [place] Sex Assigned At [facility] Start: 08-24-2022 Tobacco smoking stat us NDIS Smokes tobacco daily [facility] History of tobacco use Cigarette Smoker [facility] Start: 08-24-2022 Tobacco use and exposure Smokeless tobacco non-user [facility] Start: 08-24-2022 End: 02-19-2023 Alcohol intake Current drinker of alcohol (finding) [facility] Start: 08-24-2022 Alcohol Comment social [facility] Start: 1995 Sex Assigned At Not on file [facility] Start: 11-19-2022 End: 02-19-2023 History of Social function [facility] Start: 11-19-2022 End: 02-19-2023 Tobacco use panel [facility] Clinical Notes 05-12-2021 to 05-25-2023 Telephone Encounter - Sarah Beebe LPN - 02/21/2023 7:05 PM EDTTelephone Encounter - Brianna Price APRN.CNP - 02/21/2023 7:02 PM EDTTelephone Encounter - Rivka Stevens - 02/20/2023 2:38 PM EDT Note Date & Type Note Facility 05-25-2023 Note HNO ID: [id number] Author: JEREMIAH CHRISTIANSEN PA-C Service: ? Author Type: Physician Worship Director Type: Progress Notes Filed: 05/25/2023 14:14 Note Text: This note was created using [employer]. Subjective [place] Tata Granger is a 28 year old female. HPI Presents with vaginal dryness for a month. She states sometimes this happens she gets BV. She has not had any abnormal discharge or odor. No new partners. Last menstrual cycle was May 03 and normal for her. Denies chance of . She denies any rash. She does have a history of recurrent BV and yeast infections. Review of Systems Genitourinary: Negative for difficulty urinating, dysuria, frequency, hematuria, pelvic pain, urgency, vaginal bleeding, vaginal discharge and vaginal pain. Vaginal dryness All other systems reviewed and are negative. No past medical history on file. Current Outpatient Medications Medication Sig Dispense Refill ACIDOPHILUS cap (Patient not taking: Reported on 11/19/2022) No current facility-administered medications for this visit. No past surgical history on file. No family history on file. Social History Tobacco Use Smoking status: Every Day Types: Cigarettes Smokeless tobacco: Never Substance Use Topics Alcohol use: Yes Comment: social Drug use: Never Objective BP 126/74 Pulse 112 Temp 36.2 ?C (97.1 ?F) Resp 16 Wt 48.8 kg (107 lb 9.6 oz) LMP 07/25/2022 SpO2 99% Physical Exam Vitals reviewed. Constitutional: Appearance: Normal appearance. HENT: Head: Normocephalic and atraumatic. Genitourinary: Comments: Patient has normal external genitalia. No lesions or rashes. On internal exam normal physiologic appearing discharge noted. No lesions. Normal cervix. Skin: General: Skin is warm and dry. Neurological: Mental Status: She is alert. Assessment and Plan ASSESSMENT/PLAN: 1. Acute vaginitis - ICD9: 616.10, ICD10: N76.0 Vaginal swabs obtained. Will have her follow-up for the dryness with [employer]. Given consult. Discussed [id number] lubricants. Patient agreeable with plan. - GONORRHEA/CHLAMYDIA NAAT - BACTERIAL VAGINOSIS NAAT - SHANNAN/TRICHOMONAS NAAT - CONSULT TO SPECIALTY TRANS[employer]ER ASSEMBLER Jeremiah Christiansen PA-C [facility] 02-21-2023 Miscellaneous Notes Patient given results and verbalized understanding of instructions given. Sarah Beebe LPN Negative for chlamydia and gonorrhea please notify. documented in this encounter [facility] 02-20-2023 Miscellaneous Notes Patient given results and verbalized understanding of instructions given. Rivka Stevens Positive for yeast. Negative for BV and trichomonas. Patient's chlamydia and gonorrhea swabs were not ran we need a new specimen if patient wants them ran. Did place a new order for vaginal swab. documented in this encounter [facility] 02-20-2023 Miscellaneous Notes Patient notified.Sadie Morales LPN Please notify vaginal cultures positive for yeast, which diflucan should treat, negative for BV. GC/Chlamydia still pending will notify when back Madeline Doyle APRN.CNP documented in this encounter [facility] 02-19-2023 Note HNO ID: [id number] Author: Wendy Goyal APRN.CNP Service: ? Author Type: Nurse Practitioner Type: Progress Notes Filed: 02/19/2023 3:21 PM Note Text: This note was created using [employer]. Subjective [place] Tata Granger is a 27 year old female. 27 year old female with PMH presents for vaginal complaints. Acute onset 2 weeks ago +vaginal discharge. +white and chunky +itching She was seen at her PCP office through [facility] for this, States that she has history of yeast infections after her menses. Endorses that swabs were obtained, but she was never notified of results. States that she took Flagyl, but symptoms remain. Denies vaginal bleeding. LMP-01/30-02/06 Denies abdominal pain. Denies N/V/D Denies skin rash or lesions. Denies sx The history is provided by the patient. No high school foreign language teacher was used. Vaginal Problem This is a recurrent problem. The current episode started 1 to 4 weeks ago. The problem occurs constantly. The problem has been gradually worsening. Pertinent negatives include no abdominal pain, anorexia, arthralgias, change in bowel habit, chest pain, chills, congestion, coughing, diaphoresis, fatigue, fever, headaches, joint swelling, myalgias, nausea, neck pain, numbness, rash, sore throat, swollen glands, urinary symptoms, vertigo, visual change, vomiting or weakness. Nothing aggravates the symptoms. Treatments tried: flagyl. The treatment provided no relief. History reviewed. No pertinent past medical history. No past surgical history on file. ALLERGIES Penicillins MEDICATIONS ACIDOPHILUS cap (Patient not taking: Reported on 11/19/2022) fluconazole (DIFLUCAN) 150 mg tablet Take 1 tablet by mouth one time only for 1 dose. Repeat in 3 days as needed. No family history on file. Social History Tobacco Use Smoking status: Every Day Types: Cigarettes Smokeless tobacco: Never Substance Use Topics Alcohol use: Yes Comment: social Drug use: Never Review of Systems Constitutional: Negative for chills, diaphoresis, fatigue and fever. HENT: Negative for congestion and sore throat. Eyes: Negative for pain, discharge, redness and itching. Respiratory: Negative for apnea, cough, choking and chest tightness. Cardiovascular: Negative for chest pain. Gastrointestinal: Negative for abdominal pain, anorexia, change in bowel habit, nausea and vomiting. Genitourinary: Positive for vaginal discharge. Negative for dysuria, pelvic pain, urgency and vaginal bleeding. Musculoskeletal: Negative for arthralgias, joint swelling, myalgias and neck pain. Skin: Negative for color change, pallor and rash. Allergic/Immunologic: Negative for environmental allergies, food allergies and immunocompromised state. Neurological: Negative for vertigo, weakness, numbness and headaches. Hematological: Negative for adenopathy. Does not bruise/bleed easily. Psychiatric/Behavioral: Negative for agitation and behavioral problems. Objective BP 122/78 Pulse 118 Temp 37 ?C (98.6 ?F) (Tympanic) Resp 18 Wt 49.9 kg (110 lb) LMP 07/25/2022 SpO2 96% Physical Exam Vitals and nursing note reviewed. Constitutional: General: She is not in acute distress. Appearance: Normal appearance. She is normal weight. She is not ill-appearing, toxic-appearing or diaphoretic. HENT: Head: Normocephalic and atraumatic. Right Ear: Ear canal and external ear normal. Left Ear: Ear canal and external ear normal. Nose: Nose normal. No congestion or rhinorrhea. Mouth/Throat: Mouth: Mucous membranes are moist. Pharynx: No oropharyngeal exudate or posterior oropharyngeal erythema. Eyes: General: Right eye: No discharge. Left eye: No discharge. Extraocular Movements: Extraocular movements intact. Conjunctiva/sclera: Conjunctivae normal. Pupils: Pupils are equal, round, and reactive to light. Cardiovascular: Rate and Rhythm: Normal rate and regular rhythm. Pulses: Normal pulses. Heart sounds: Normal heart sounds. No murmur heard. No friction rub. Pulmonary: Effort: Pulmonary effort is normal. No respiratory distress. Breath sounds: Normal breath sounds. No stridor. No wheezing, rhonchi or rales. Chest: Chest wall: No tenderness. Abdominal: General: Abdomen is flat. There is no distension. Palpations: Abdomen is soft. There is no mass. Tenderness: There is no abdominal tenderness. There is no right CVA tenderness, left CVA tenderness, guarding or rebound. Hernia: No hernia is present. Genitourinary: Comments: Declines pelvic, Self swabs obtained Musculoskeletal: General: No swelling, tenderness, deformity or signs of injury. Normal range of motion. Cervical back: Normal range of motion and neck supple. No rigidity. Right lower leg: No edema. Left lower leg: No edema. Lymphadenopathy: Cervical: No cervical adenopathy. Skin: General: Skin is warm and dry. Coloration: Skin is not jaundiced or pale. Findings: No bruising, (more content not included)... [facility] 02-19-2023 History of Presen t illness Narrative This note was created using [employer]. Subjective [place] Tata Granger is a 27 year old female. 27 year old female with PMH presents for vaginal complaints. Acute onset 2 weeks ago +vaginal discharge. +white and chunky +itching She was seen at her PCP office through [facility] for this, States that she has history of yeast infections after her menses. Endorses that swabs were obtained, but she was never notified of results. States that she took Flagyl, but symptoms remain. Denies vaginal bleeding. LMP-01/30-02/06 Denies abdominal pain. Denies N/V/D Denies skin rash or lesions. Denies sx The history is provided by the patient. No high school foreign language teacher was used. Vaginal Problem This is a recurrent problem. The current episode started 1 to 4 weeks ago. The problem occurs constantly. The problem has been gradually worsening. Pertinent negatives include no abdominal pain, anorexia, arthralgias, change in bowel habit, chest pain, chills, congestion, coughing, diaphoresis, fatigue, fever, headaches, joint swelling, myalgias, nausea, neck pain, numbness, rash, sore throat, swollen glands, urinary symptoms, vertigo, visual change, vomiting or weakness. Nothing aggravates the symptoms. Treatments tried: flagyl. The treatment provided no relief. History reviewed. No pertinent past medical history. No past surgical history on file. ALLERGIES Penicillins MEDICATIONS ACIDOPHILUS cap (Patient not taking: Reported on 11/19/2022) fluconazole (DIFLUCAN) 150 mg tablet Take 1 tablet by mouth one time only for 1 dose. Repeat in 3 days as needed. No family history on file. Social History Tobacco Use Smoking status: Every Day Types: Cigarettes Smokeless tobacco: Never Substance Use Topics Alcohol use: Yes Comment: social Drug use: Never Review of Systems Constitutional: Negative for chills, diaphoresis, fatigue and fever. HENT: Negative for congestion and sore throat. Eyes: Negative for pain, discharge, redness and itching. Respiratory: Negative for apnea, cough, choking and chest tightness. Cardiovascular: Negative for chest pain. Gastrointestinal: Negative for abdominal pain, anorexia, change in bowel habit, nausea and vomiting. Genitourinary: Positive for vaginal discharge. Negative for dysuria, pelvic pain, urgency and vaginal bleeding. Musculoskeletal: Negative for arthralgias, joint swelling, myalgias and neck pain. Skin: Negative for color change, pallor and rash. Allergic/Immunologic: Negative for environmental allergies, food allergies and immunocompromised state. Neurological: Negative for vertigo, weakness, numbness and headaches. Hematological: Negative for adenopathy. Does not bruise/bleed easily. Psychiatric/Behavioral: Negative for agitation and behavioral problems. Objective BP 122/78 Pulse 118 Temp 37 C (98.6 F) (Tympanic) Resp 18 Wt 49.9 kg (110 lb) LMP 07/25/2022 SpO2 96% Physical Exam Vitals and nursing note reviewed. Constitutional: General: She is not in acute distress. Appearance: Normal appearance. She is normal weight. She is not ill-appearing, toxic-appearing or diaphoretic. HENT: Head: Normocephalic and atraumatic. Right Ear: Ear canal and external ear normal. Left Ear: Ear canal and external ear normal. Nose: Nose normal. No congestion or rhinorrhea. Mouth/Throat: Mouth: Mucous membranes are moist. Pharynx: No oropharyngeal exudate or posterior oropharyngeal erythema. Eyes: General: Right eye: No discharge. Left eye: No discharge. Extraocular Movements: Extraocular movements intact. Conjunctiva/sclera: Conjunctivae normal. Pupils: Pupils are equal, round, and reactive to light. Cardiovascular: Rate and Rhythm: Normal rate and regular rhythm. Pulses: Normal pulses. Heart sounds: Normal heart sounds. No murmur heard. No friction rub. Pulmonary: Effort: Pulmonary effort is normal. No respiratory distress. Breath sounds: Normal breath sounds. No stridor. No wheezing, rhonchi or rales. Chest: Chest wall: No tenderness. Abdominal: General: Abdomen is flat. There is no distension. Palpations: Abdomen is soft. There is no mass. Tenderness: There is no abdominal tenderness. There is no right CVA tenderness, left CVA tenderness, guarding or rebound. Hernia: No hernia is present. Genitourinary: Comments: Declines pelvic, Self swabs obtained Musculoskeletal: General: No swelling, tenderness, deformity or signs of injury. Normal range of motion. Cervical back: Normal range of motion and neck supple. No rigidity. Right lower leg: No edema. Left lower leg: No edema. Lymphadenopathy: Cervical: No cervical adenopathy. Skin: General: Skin is warm and dry. Coloration: Skin is not jaundiced or pale. Findings: No bruising, erythema, lesion or rash. Neurological: General: No focal deficit present. Mental Status: She is alert and oriented to person, place, and time. Cranial Nerves: No cranial nerve deficit. Sensory: No sensory deficit. Motor: No weakness. Coordination: Coordination normal. Gait: Gait normal. Psychiatric: Mood and Affect: Mood normal. Behavior: Behavior normal. Thought Content: Thought content normal. Judgment: Judgment normal. Assessment and Plan ASSESSMENT/PLAN: 1. Vaginal discharge - ICD9: 623.5, ICD10: N89.8 X 2 weeks Seen by her PCP She was diagnosed with BV, placed on Flagyl Endorses that she is not experiencing improvement. Declines pelvic Self swab Treated with Diflucan presently, Will await results to guide additional treatment. F/U with [employer] for continued symptoms. - SHANNAN/TRICHOMONAS NAAT - BACTERIAL VAGINOSIS NAAT - GONORRHEA/CHLAMYDIA NAAT Wendy Goyal APRN.COLLEEN documented in this encounter [facility] 01-05-2023 Note HNO ID: [id number] Author: Madeline Doyle APRN.CNP Service: ? Author Type: Nurse Practitioner Type: Progress Notes Filed: 01/05/2023 10:05 AM Note Text: Subjective The history is provided by the patient. No high school foreign language teacher was used. HPI Zenon Granger is a 27 year old female who presents today for CC of being diagnosed with BV by Dr. France at [facility] yesterday and was sent in clindamycin. Patient brought prescription with her. She is requesting medtronidazole for BV. No other concerns voiced. She is having vaginal discharge with odor. H/o of BV in the past LMP 07/25/2022 Social History Tobacco Use Smoking status: Every Day Types: Cigarettes Smokeless tobacco: Never Substance Use Topics Alcohol use: Yes Comment: social Drug use: Never No past medical history on file. I have confirmed and edited as necessary, the [facility] Review of Systems Constitutional: Negative for chills and fever. Gastrointestinal: Negative for abdominal pain. Genitourinary: Negative for dysuria, flank pain, frequency, hematuria and urgency. Vaginal discharge, itching and odor Objective Physical Exam Vitals and nursing note reviewed. Pulmonary: Effort: Pulmonary effort is normal. Skin: General: Skin is warm and dry. Neurological: Mental Status: She is alert and oriented to person, place, and time. Psychiatric: Mood and Affect: Affect normal. Declined exam and testing. ASSESSMENT/PLAN: 1. Acute vaginitis - ICD9: 616.10, ICD10: N76.0 Metronodiazole as discussed for BV Follow up with PCP prn - METRONIDAZOLE 500 MG TABLET Diagnosis and treatment plan were discussed and questions were answered to the patient's satisfaction. Pt acknowledged understanding of concepts and follow up plan. Specific signs and symptoms that would indicate the need for higher level of care were discussed in detail warranting prompt ER evaluation. Madeline Doyle APRN.[facility] 01-05-2023 History of Presen t illness Narrative Subjective The history is provided by the patient. No high school foreign language teacher was used. HPI Zenon Granger is a 27 year old female who presents today for CC of being diagnosed with BV by Dr. France at [facility] yesterday and was sent in clindamycin. Patient brought prescription with her. She is requesting medtronidazole for BV. No other concerns voiced. She is having vaginal discharge with odor. H/o of BV in the past LMP 07/25/2022 Social History Tobacco Use Smoking status: Every Day Types: Cigarettes Smokeless tobacco: Never Substance Use Topics Alcohol use: Yes Comment: social Drug use: Never No past medical history on file. I have confirmed and edited as necessary, the [facility] Review of Systems Constitutional: Negative for chills and fever. Gastrointestinal: Negative for abdominal pain. Genitourinary: Negative for dysuria, flank pain, frequency, hematuria and urgency. Vaginal discharge, itching and odor Objective Physical Exam Vitals and nursing note reviewed. Pulmonary: Effort: Pulmonary effort is normal. Skin: General: Skin is warm and dry. Neurological: Mental Status: She is alert and oriented to person, place, and time. Psychiatric: Mood and Affect: Affect normal. Declined exam and testing. ASSESSMENT/PLAN: 1. Acute vaginitis - ICD9: 616.10, ICD10: N76.0 Metronodiazole as discussed for BV Follow up with PCP prn - METRONIDAZOLE 500 MG TABLET Diagnosis and treatment plan were discussed and questions were answered to the patient's satisfaction. Pt acknowledged understanding of concepts and follow up plan. Specific signs and symptoms that would indicate the need for higher level of care were discussed in detail warranting prompt ER evaluation. Madeline Doyle APRN.COLLEEN documented in this encounter [facility] 11-20-2022 Miscellaneous Notes Patient returned call and given provider's message below with verbalized understanding. Left message for patient to return call for results and recommendations.Sadie Morales LPN ----- Message from Bhavna Cota APRN.LABORATORY TECHNOLOGIST sent at 11/20/2022 7:16 AM EDT ----- Please advise patient all the vaginal tests were negative. She should follow up with [facility]SEMBLER if symptoms continue. documented in this encounter [facility] 11-19-2022 Note HNO ID: [id number] Author: Madeline Doyle APRN.LABORATORY TECHNOLOGIST Service: ? Author Type: Nurse Practitioner Type: Progress Notes Filed: 11/19/2022 3:30 PM Note Text: Subjective The history is provided by the patient. No high school foreign language teacher was used. HPI [place] Tata Granger is a 27 year old female who presents today for CC of vaginal discharge, denies odor, itching or burning. Denies and known exposure to std's desires testing. Had a cervical bx one month ago. BP 122/74 Pulse 118 Temp 36.8 ?C (98.3 ?F) Resp 18 Wt 49.9 kg (110 lb) LMP 07/25/2022 SpO2 97% Social History Tobacco Use Smoking status: Every Day Types: Cigarettes Smokeless tobacco: Never Substance Use Topics Alcohol use: Yes Comment: social Drug use: Never No past medical history on file. I have confirmed and edited as necessary, the [facility] Review of Systems Constitutional: Negative for chills and fever. Gastrointestinal: Negative for abdominal pain. Genitourinary: Negative for dysuria, flank pain, frequency, hematuria and urgency. Vaginal discharge Objective Physical Exam Vitals and nursing note reviewed. Exam conducted with a street sprinkler present. Constitutional: Appearance: Normal appearance. Abdominal: General: Bowel sounds are normal. There is no abdominal bruit. Palpations: Abdomen is not rigid. There is no mass or pulsatile mass. Tenderness: There is no abdominal tenderness. There is no guarding or rebound. Negative signs include Benjamin's sign and McBurney's sign. Genitourinary: Labia: Right: No rash, tenderness or lesion. Left: No rash, tenderness or lesion. Vagina: Vaginal discharge present. No erythema or tenderness. Cervix: Discharge present. No friability or erythema. Neurological: Mental Status: She is alert and oriented to person, place, and time. Psychiatric: Mood and Affect: Affect normal. ASSESSMENT/PLAN: 1. Acute vaginitis - ICD9: 616.10, ICD10: N76.0 Will send cultures for testing and treat based on results Follow up with MORTGAGE BANKER as needed - BACTERIAL VAGINOSIS NAAT - SHANNAN/TRICHOMONAS NAAT - GONORRHEA/CHLAMYDIA NAAT Diagnosis and treatment plan were discussed and questions were answered to the patient's satisfaction. Pt acknowledged understanding of concepts and follow up plan. Specific signs and symptoms that would indicate the need for higher level of care were discussed in detail warranting prompt ER evaluation. Madeline Doyle APRN.LABORATORY TECHNOLOGIST [facility] 11-19-2022 History of Presen t illness Narrative Subjective The history is provided by the patient. No high school foreign language teacher was used. HPI [place] Tata Granger is a 27 year old female who presents today for CC of vaginal discharge, denies odor, itching or burning. Denies and known exposure to std's desires testing. Had a cervical bx one month ago. BP 122/74 Pulse 118 Temp 36.8 C (98.3 F) Resp 18 Wt 49.9 kg (110 lb) LMP 07/25/2022 SpO2 97% Social History Tobacco Use Smoking status: Every Day Types: Cigarettes Smokeless tobacco: Never Substance Use Topics Alcohol use: Yes Comment: social Drug use: Never No past medical history on file. I have confirmed and edited as necessary, the [facility] Review of Systems Constitutional: Negative for chills and fever. Gastrointestinal: Negative for abdominal pain. Genitourinary: Negative for dysuria, flank pain, frequency, hematuria and urgency. Vaginal discharge Objective Physical Exam Vitals and nursing note reviewed. Exam conducted with a street sprinkler present. Constitutional: Appearance: Normal appearance. Abdominal: General: Bowel sounds are normal. There is no abdominal bruit. Palpations: Abdomen is not rigid. There is no mass or pulsatile mass. Tenderness: There is no abdominal tenderness. There is no guarding or rebound. Negative signs include Benjamin's sign and McBurney's sign. Genitourinary: Labia: Right: No rash, tenderness or lesion. Left: No rash, tenderness or lesion. Vagina: Vaginal discharge present. No erythema or tenderness. Cervix: Discharge present. No friability or erythema. Neurological: Mental Status: She is alert and oriented to person, place, and time. Psychiatric: Mood and Affect: Affect normal. ASSESSMENT/PLAN: 1. Acute vaginitis - ICD9: 616.10, ICD10: N76.0 Will send cultures for testing and treat based on results Follow up with MORTGAGE BANKER as needed - BACTERIAL VAGINOSIS NAAT - SHANNAN/TRICHOMONAS NAAT - GONORRHEA/CHLAMYDIA NAAT Diagnosis and treatment plan were discussed and questions were answered to the patient's satisfaction. Pt acknowledged understanding of concepts and follow up plan. Specific signs and symptoms that would indicate the need for higher level of care were discussed in detail warranting prompt ER evaluation. Madeline Doyle APRN.CNP documented in this encounter [facility] 09-02-2022 Miscellaneous Notes Patient calling with request for Medication information. Patient denies any new or worsening symptoms of which a provider is not aware: Yes. Patient inquiring about side effects of Doxycycline. Information obtained from [employer] and reviewed with patient. Patient verbalizes understanding. Reason for Disposition General information question, no triage required and triager able to answer question Protocols used: Information Only Call - No [id number] documented in this encounter [facility] 08-25-2022 Miscellaneous Notes Patient notified of results, verbalized understanding of instructions given. Ilda Choudhary MA Please advise patient she tested positive for BV. Rx for flagyl sent to pharmacy. She needs to take this in addition to the doxycycline for chlamydia. She should avoid alcohol while on the flagyl. Bhavna Cota APRN.COLLEEN documented in this encounter [facility] 08-25-2022 Miscellaneous Notes Patient given results and verbalized understanding of instructions given. Rivka Stevens Patient tested positive for chlamydia. Negative for gonorrhea. Doxcyline was called into [facility] No sex for 2 weeks Partners must be tested. There are pending labs presently and we will reach out when those result. Please advise patient documented in this encounter [facility] 08-24-2022 Note HNO ID: [id number] Author: Jeremiah Christiansen PA-C Service: ? Author Type: Physician Worship Director Type: Progress Notes Filed: 08/24/2022 5:43 PM Note Text: This note was created using wireWAX. Subjective [place] Tata Granger is a 27 year old female. HPI Patient presents with possible exposure to chlamydia. She states her partner called her and said that he was exposed to chlamydia. He has not tested positive yet per the patient. She states she has had some vaginal odor but sometimes gets that right before her menstrual cycle. Last menstrual cycle was July 25. She did have unprotected sex since last menstrual cycle with this partner. Denies abdominal pain or back pain. No fever. Denies dysuria, frequency or urgency. History of gonorrhea and chlamydia from the same partner in the past. Review of Systems Constitutional: Negative. HENT: Negative. Respiratory: Negative. Cardiovascular: Negative. Gastrointestinal: Negative. Genitourinary: Positive for vaginal discharge. Vaginal odor All other systems reviewed and are negative. No past medical history on file. Current Outpatient Medications Medication Sig Dispense Refill ACIDOPHILUS cap No current facility-administered medications for this visit. No past surgical history on file. No family history on file. Social History Tobacco Use Smoking status: Every Day Types: Cigarettes Smokeless tobacco: Never Substance Use Topics Alcohol use: Yes Comment: social Drug use: Never Objective BP 122/70 Pulse (!) 124 Temp 36.9 ?C (98.4 ?F) (Tympanic) Resp 18 Wt 51.5 kg (113 lb 9.6 oz) LMP 07/25/2022 SpO2 98% Physical Exam Vitals reviewed. Constitutional: Appearance: Normal appearance. HENT: Head: Normocephalic and atraumatic. Genitourinary: Comments: Normal external genitalia. No rash. Scant white discharge in the vaginal vault. No bleeding. No lesions. Skin: General: Skin is warm and dry. Neurological: Mental Status: She is alert. Assessment and Plan ASSESSMENT/PLAN: 1. Exposure to STD - ICD9: V01.6, ICD10: Z20.2 Urine was negative here. Patient preferred to wait for swabs to come back for treatment. Discussed follow-up with women's health provider as needed. Patient agreeable. We will call on results. - SHANNAN / TRICHOMONAS AMPLIFICATION - BACTERIAL VAGINOSIS AMPLIFICATION - GC/CHLAMYDIA DNA DET - HCG QUAL UR B/O - SYPHILIS TOTAL W/REFLEX - HIV 1 2 COMBO(AG/AB),WITH REFLEX TO DIFFERENTIATION - HEP C AB IA W/CONF SCRN - HEP B SURF AG SCRN Jeremiah Christiansen PA-C [facility] 08-24-2022 History of Presen t illness Narrative This note was created using [employer]. Subjective [place] Tata Granger is a 27 year old female. HPI Patient presents with possible exposure to chlamydia. She states her partner called her and said that he was exposed to chlamydia. He has not tested positive yet per the patient. She states she has had some vaginal odor but sometimes gets that right before her menstrual cycle. Last menstrual cycle was July 25. She did have unprotected sex since last menstrual cycle with this partner. Denies abdominal pain or back pain. No fever. Denies dysuria, frequency or urgency. History of gonorrhea and chlamydia from the same partner in the past. Review of Systems Constitutional: Negative. HENT: Negative. Respiratory: Negative. Cardiovascular: Negative. Gastrointestinal: Negative. Genitourinary: Positive for vaginal discharge. Vaginal odor All other systems reviewed and are negative. No past medical history on file. Current Outpatient Medications Medication Sig Dispense Refill ACIDOPHILUS cap No current facility-administered medications for this visit. No past surgical history on file. No family history on file. Social History Tobacco Use Smoking status: Every Day Types: Cigarettes Smokeless tobacco: Never Substance Use Topics Alcohol use: Yes Comment: social Drug use: Never Objective BP 122/70 Pulse (!) 124 Temp 36.9 C (98.4 F) (Tympanic) Resp 18 Wt 51.5 kg (113 lb 9.6 oz) LMP 07/25/2022 SpO2 98% Physical Exam Vitals reviewed. Constitutional: Appearance: Normal appearance. HENT: Head: Normocephalic and atraumatic. Genitourinary: Comments: Normal external genitalia. No rash. Scant white discharge in the vaginal vault. No bleeding. No lesions. Skin: General: Skin is warm and dry. Neurological: Mental Status: She is alert. Assessment and Plan ASSESSMENT/PLAN: 1. Exposure to STD - ICD9: V01.6, ICD10: Z20.2 Urine was negative here. Patient preferred to wait for swabs to come back for treatment. Discussed follow-up with women's health provider as needed. Patient agreeable. We will call on results. - SHANNAN / TRICHOMONAS AMPLIFICATION - BACTERIAL VAGINOSIS AMPLIFICATION - GC/CHLAMYDIA DNA DET - HCG QUAL UR B/O - SYPHILIS TOTAL W/REFLEX - HIV 1 2 COMBO(AG/AB),WITH REFLEX TO DIFFERENTIATION - HEP C AB IA W/CONF SCRN - HEP B SURF AG SCRN Jeremiah Christiansen PA-C documented in this encounter [facility] 05-12-2021 Hospital Discharg e instructions Patient Education 05/12/2021 15:29:50 Dental Pain Dental Pain A crack or cavity in a tooth can cause tooth pain. This is because the crack or cavity exposes the sensitive inner area of the tooth. An infection in the gum or the root of the tooth can cause pain and swelling. The pain is often made worse when you drink hot or cold beverages. It can also be worse when you bite on hard foods. Pain may spread from the tooth to your ear or the area of the jaw on the same side. Home care Follow these tips when caring for yourself at home: Don't have hot and cold foods and drinks. Your tooth may be sensitive to changes in temperature. Use toothpaste made for sensitive teeth. [place] gently up and down instead of sideways. Brushing sideways can wear away root surfaces if they are exposed. If your tooth is chipped or cracked, or if there is a large open cavity, put oil of cloves directly on the tooth to relieve pain. You can buy oil of cloves at drugstores. Some pharmacies carry an okyh-jfy-cbmrsje toothache kit. This contains a paste that you can put on the exposed tooth to make it less sensitive. Put a cold pack on your jaw over the sore area to help reduce pain. You may use etfd-qee-skkufjq medicine to ease pain, unless your doctor prescribed another medicine. If you have chronic liver or kidney disease, talk with your healthcare provider before using acetaminophen or ibuprofen. Also talk with your provider if you ve had a stomach ulcer or GI bleeding. If you have signs of an infection, you will be given an antibiotic. Take it as directed. Follow-up care Follow up with your dentist, or as advised. Your pain may go away with the treatment given today. But only a dentist can fully look at and treat the cause of your pain. This will keep the pain from coming back. Call 911 Call 911 if any of these occur: Unusual drowsiness Headache or stiff neck Weakness or fainting Difficulty swallowing or breathing When to seek medical advice Call your health care provider right away if any of these occur: Your face becomes swollen or red Pain gets worse or spreads to your neck Fever of 100.4 F (38.0 C) or higher, or as directed by your healthcare provider Pus drains from the tooth [id number] [employer]. [address] [place] [address]. All rights reserved. This information is not intended as a substitute for professional medical care. Always follow your healthcare professional's instructions. Follow Up Care 05/12/2021 14:56:53 With:Your Dentist Address: When: Unknown Comments:Call Saturday [place] Evaluation + Plan note No data available for this section [place] [facility] [place] [facility] Diagnosis BV (bacterial vaginosis)- Primary Vaginitis and vulvovaginitis, unspecified [facility] [place] [facility]* Diagnosis Acute vaginitis- Primary Vaginitis and vulvovaginitis, unspecified [facility] [place] [facility]* Diagnosis Vaginal discharge- Primary Leukorrhea, not specified as infective [facility] [place] [facility]* Diagnosis Vaginal discomfort- Primary Unspecified symptom associated with female genital organs documented in this encounter [facility] Summary Purpose Family History No Family History Records FoundNo Family History Records Found Advance Directives No Advanced Directives Records FoundNo Advanced Directives Records Found Additional Source Comments INFORMATION SOURCE (unrecogn ized section and content) DATE CREATED AUTHOR AUTHOR'S JEREMIE SLATER 06/05/2023 [facility] Source Comments (unrecognize d section and content) In the event this informatio n is protected by the Federal Confidentiality of Alcohol and Drug Abuse Patient Records regulations: The Federal rules restrict any use of the information to criminally investigate or prosecute any alcohol or drug abuse patient.[facility] the event this information is protected by the Federal Confidentiality of Alcohol and Drug Abuse Patient Records regulations: The Federal rules restrict any use of the information to criminally investigate or prosecute any alcohol or drug abuse patient.[facility] the event this information is protected by the Federal Confidentiality of Alcohol and Drug Abuse Patient Records regulations: The Federal rules restrict any use of the information to criminally investigate or prosecute any alcohol or drug abuse patient.[facility] the event this information is protected by the Federal Confidentiality of Alcohol and Drug Abuse Patient Records regulations: The Federal rules restrict any use of the information to criminally investigate or prosecute any alcohol or drug abuse patient.[facility] the event this information is protected by the Federal Confidentiality of Alcohol and Drug Abuse Patient Records regulations: The Federal rules restrict any use of the information to criminally investigate or prosecute any alcohol or drug abuse patient.[facility] the event this information is protected by the Federal Confidentiality of Alcohol and Drug Abuse Patient Records regulations: The Federal rules restrict any use of the information to criminally investigate or prosecute any alcohol or drug abuse patient.[facility] the event this information is protected by the Federal Confidentiality of Alcohol and Drug Abuse Patient Records regulations: The Federal rules restrict any use of the information to criminally investigate or prosecute any alcohol or drug abuse patient.[facility] the event this information is protected by the Federal Confidentiality of Alcohol and Drug Abuse Patient Records regulations: The Federal rules restrict any use of the information to criminally investigate or prosecute any alcohol or drug abuse patient.[facility] the event this information is protected by the Federal Confidentiality of Alcohol and Drug Abuse Patient Records regulations: The Federal rules restrict any use of the information to criminally investigate or prosecute any alcohol or drug abuse patient.[facility] the event this information is protected by the Federal Confidentiality of Alcohol and Drug Abuse Patient Records regulations: The Federal rules restrict any use of the information to criminally investigate or prosecute any alcohol or drug abuse patient.[facility] the event this information is protected by the Federal Confidentiality of Alcohol and Drug Abuse Patient Records regulations: The Federal rules restrict any use of the information to criminally investigate or prosecute any alcohol or drug abuse patient.[facility] Reason for Visit (unrecogniz ed section and content) Reason Comments Results Reason Comments Information Reason Comments Vaginal Discharge after getting a biop sy 1 month ago Reason Comments Medication Problem BV Reason Comments Vaginal Problem Vaginal itching x 2 weeks Care Teams (unrecognized sec tion and content) Drop Wire Aliner Relationship Specialty Start Date End Date Angeline Valderrama MD [address] [place], [place] [address] PCP - General Family Medicine 08/25/22 Drop Wire Aliner Relationship Specialty Start Date End Date Angeline Valderrama MD [address] [facility] [place], [place] [id number] PCP - General Family Medicine 08/25/22 Drop Wire Aliner Relationship Specialty Start Date End Date Angeline Valderrama MD [address] [place], [place] [id number] PCP - General Family Medicine 08/25/22 Drop Wire Aliner Relationship Specialty Start Date End Date Angeline Valderrama MD [address] [place], [place] [address] PCP - General Family Medicine 08/25/22 Drop Wire Aliner Relationship Specialty Start Date End Date Angeline Valderrama MD [address] [place], [place] [address] PCP - General Family Medicine 08/25/22 Drop Wire Aliner Relationship Specialty Start Date End Date Angeline Valderrama MD [address] [place], [place] [id number] PCP - General Family Medicine 08/25/22 Drop Wire Aliner Relationship Specialty Start Date End Date Angeline Valderrama MD [address] [place]KA[place]ONTFORTPaulette DIAZ [place], [place] [id number] PCP - General Family Medicine 08/25/22 FOR RECORDS PERTAINING TO PATIENTS WHO ARE OR HAVE BEEN ENROLLED IN A CHEMICAL DEPENDENCY/SUBSTANCEABUSE PROGRAM, SOME INFORMATION MAY BE OMITTED. This clinical summary was aggregated from multiple sources. Caution should be exercised in using it in the provision of clinical care. This summary normalizes information from multiple sources, and as a consequence, information in this document may materially change the coding, format and clinical context of patient data. In addition, data may be omitted in some cases. CLINICAL DECISIONS SHOULD BE BASED ON THE PRIMARY CLINICAL RECORDS. [facility] [employer] [facility]. provides no warranty or guarantee of the accuracy or completeness of information in this document.
[2023-07-11 21:10] LABS: ALB/GLOB Ratio 1.3 RATIO (0.9-2.4); AST(SGOT) 20 U/L (15-37); Alanine Aminotransfer ALT/SGPT 21 U/L (13-56); Albumin, Serum 4.6 g/dL (3.2-5.0); Alkaline Phosphatase 44 U/L (45-117); Anion Gap 6 (5-15); BUN 7 mg/dL (7-18); Calcium,Total 9.2 mg/dL (8.5-10.1); Chloride 110 mmol/L (98-107); Creatinine, Serum 0.87 mg/dL (0.55-1.02); EST Glomerular Filtration Rate 82 mL/min (>60); Est Glom Filt Rate - Afr Amer 99 mL/min (>60); Follicle Stimulating Hormone 4.3 mIU/mL; Globulin 3.5 g/dL (2.2-4.2); Glucose 94 mg/dL (74-106); Luteinizing Hormone 19.4 mIU/mL; Potassium 3.3 mmol/L (3.5-5.1); Protein, Total 8.1 g/dL (6.4-8.2); Sodium Level 141 mmol/L (136-145); Thyroid Stim Hormone (TSH) 0.72 uIU/mL (0.358-3.74)
[2023-07-18 14:10] LABS: Testosterone, % Free 1.48 % (0.50-2.80); Testosterone, Free 0.56 ng/dL (0.10-0.85); Testosterone, Total 38 ng/dL (13-71)
== END | disposition home or self-care (01) ==
LOC: MFPLAB 12:23
PROVIDERS: PCP Family Medicine; Visit Provider Family Medicine
DX: N92.1 Excessive and frequent menstruation with irregular cycle (principal)
CPT/HCPCS: 36415; 80053; 82627; 83001; 83002; 84402; 84403; 84443; 85025; 82626

== ENCOUNTER → 2024-02-19 | Outpatient (CLI) | payer MEDICAID, SELFPAY ==
[2024-02-19 13:45] LABS: Mucous, Urine 0 SEEN /hpf (<or=2+)
[2024-02-19 15:43] LABS: Color, Urine Straw (Yellow); Glucose, Dipstick Normal (Normal); Ketone-Dipstick Negative (Negative); Leukocyte Esterase-Dipstick 25 /ul (Negative); Nitrite-Dipstick Positive (Negative); Occult Blood-Urine 150 /ul (Negative); Protein-Dipstick 15 mg/dl (Negative); Specific Gravity, Urine 1.005 (1.002-1.030); Urine Bilirubin Dipstick Negative (Negative); Urine Clarity Sl. Cloudy (Clear); Urine Urobilinogen Normal (Normal)
[2024-02-19 16:57] LABS: Bacteria 1+ /hpf (None Seen); Squamous Epithelial Cells - UA 0-5 SEEN /hpf (5-10); White Blood Cells 5-10 SEEN /hpf (0-5)
[2024-02-19 16:58] LABS: Red Blood Cells-Urine 0-5 SEEN /hpf (0-5)
== END | disposition home or self-care (01) ==
LOC: MFPLAB 13:43
PROVIDERS: PCP Family Medicine; Referring Provider Family Medicine; Visit Provider Family Medicine
DX: N39.0 Urinary tract infection, site not specified (principal)
CPT/HCPCS: 81001; 87086; 87088; 87186

== ENCOUNTER 2024-04-20 11:43 | Emergency (ER) | payer MEDICAID, SELFPAY ==
[2024-04-20 11:45] VITALS: BP 125/86; PULSE 138; RESP 18; TEMP 36.2; O2SAT 100; BMI 20.5
--- NOTE | 2024-04-20 12:57 | ED.RN ---
PT. WALKING OUT, STOPPED PT. ASKED IF SHE NEEDED SOMETHING. STATES UGH I JUST WANT TO GO OUTSIDE REAL QUICK TOLD PT. THAT WE DONT LET PEOPLE JUST LEAVE AND COME BACK. STATES I WAS JUST GONNA GO OUT AND SMOKE INFORMED PT. SHE CANNOT DO THAT. PT. LOOKS AT HER FRIEND AND SAYS WE ARE LEAVING ANYWAY.
--- NOTE | 2024-04-20 13:02 | EDS_ITS ---
HPI History of Present Illness Chief Complaint: Nausea/Vomiting Detail of Chief Complaint: emigdio Informant: patient Narrative Narrative: 29-year-old female presents to have her kristinas evaluated. She states she recently was prescribed moxifloxacin to start after finishing a course of doxycycline, she took the first moxifloxacin yesterday and had no issues all day, and the second dose this morning. A little while later she laid down to bed because she had worked all night for [employer], and she has been sleep deprived even yesterday between shifts and is very tired, she started having shaking all over, this made her feel very anxious states she has anxiety and things started to spiral and then she felt numb all over. And resulted feeling numb all over she called the nurse line for her doctor and was referred here to the ER. States she feels fine now except for being tired. She is concerned about the medication. 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 Right now she is asymptomatic. PFSH PFSH Allergy/AdvReac Type Severity Reaction Status Date / Time Penicillins Allergy Unknown Verified 04/20/24 11:49 Social History Smoking Status: Current every day smoker tobacco type: e-cigarettes ROS ROS ED Constitutional Constitutional ED: Denies chills or fever(s) Eyes Eyes: Denies change in vision or diplopia ENT ENT ED: Denies rhinorrhea or sore throat Cardiovascular Cardiovascular: Denies chest pain or palpitations Respiratory/Chest Respiratory/Chest: Denies cough or dyspnea Gastrointestinal Gastrointestinal: Denies abdominal pain, diarrhea, nausea or vomiting Genitourinary Genitourinary ED: Denies dysuria or hematuria Musculoskeletal Musculoskeletal: Denies back pain or neck pain Integumentary Denies abscess or rash Neurologic Neurologic: Denies headache(s), paresthesias or weakness Psychiatric Psychiatric: Denies anxiety or suicidal thoughts EXAM Physical Exam Const Vital Signs: 04/20/24 11:45 Temperature 97.2 F L Temperature Source Temporal Pulse Rate 138 H Respiratory Rate 18 Blood Pressure 125/86 H Blood Pressure Mean 99 Pulse Ox 100 Oxygen Delivery Method Room Air Positive well nourished and well developed General Appearance ED: well developed and NAD HEENT Reports moist mucous membranes normocephalic and atraumatic Eyes PERRL and EOMs intact bilaterally Neck full ROM and supple Resp normal respiratory effort and clear to auscultation bilaterally Cardio regular rate, regular rhythm and no murmurs GI non-tender and non-distended Auscultation: normoactive bowel sounds Palpation: soft Back/Spine no CVA tenderness General Back: other FROM Extremity normal to inspection General Extremety ED: Negative for edema, pulses abnormal or tenderness General Extremity: Negative for edema or pulses abnormal Neuro oriented x3, CN's II-XII intact bilaterally and no sensory deficits noted Sensorium / Orientation: awake and alert Motor Exam: strength 5/5 throughout Skin no rashes or lesions noted and no wounds MDM MDM MDM Narrative Medical decision making narrative: I advised the patient that I did not think this was a side effect of the medication and that if it was prescribed to her for that reason she should continue it. She has no tachycardia on my exam although she did not triage, and she thinks this was her anxiety and I tend to agree. She left prior to discharge. Discharge Plan Triage Chief Complaint: Nausea/Vomiting ED Provider: Storm Flannery Dx/Rx/DC Orders Clinical Impression: Anxiety reaction Instructions: Understanding Anxiety Disorders Primary Care Provider: José Valderrama Referrals: José Valderrama MD [Primary Care Provider] - Print Language: [place]an Disposition Disposition: Home, Self Care Discharge Date/Time: 04/20/24 13:00
== END 2024-04-20 13:00 | disposition home or self-care (01) ==
LOC: ED 12:33
PROVIDERS: Emergency Provider Emergency Medicine; PCP Family Medicine; Visit Provider Emergency Medicine
DX: F41.1 Generalized anxiety disorder (principal); N39.0 Urinary tract infection, site not specified; B96.89 Other specified bacterial agents as the cause of diseases classified elsewhere; F17.290 Nicotine dependence, other tobacco product, uncomplicated
CPT/HCPCS: 99282

== ENCOUNTER 2025-01-31 05:08 | Outpatient (CLI) | payer MEDICAID, SELFPAY ==
[2025-01-31 05:40] VITALS: PULSE 93; O2SAT 97
[2025-01-31 05:42] VITALS: BP 132/90; PULSE 90; RESP 16; TEMP 36.1
[2025-01-31 06:05] VITALS: BMI 27.0
[2025-01-31 06:38] LABS: Color, Urine Straw (Yellow); Glucose, Dipstick Normal (Normal); Ketone-Dipstick Negative (Negative); Leukocyte Esterase-Dipstick Negative /ul (Negative); Nitrite-Dipstick Negative (Negative); Occult Blood-Urine Negative /ul (Negative); Protein-Dipstick 15 mg/dl (Negative); Specific Gravity, Urine 1.010 (1.002-1.030); Urine Bilirubin Dipstick Negative (Negative)
--- NOTE | 2025-01-31 06:45 | OB.TRI.NOTE ---
HPI - General General Date of Admission: 01/31/25 Date of Service: 01/31/25 Chief Complaint: contractions HPI Narrative MARLON GRANGER, is a 29 F who presents contractions not painful. No loss of fluid, no bleeding. Cervical exam unchanged. Maternal Data Information Final HERBER: [birth year] Gestational age: 38+2 PFSH PFSH Allergy/AdvReac Type Severity Reaction Status Date / Time Penicillins Allergy Unknown Verified 01/31/25 06:18 Social History Smoking Status: Current every day smoker tobacco type: e-cigarettes History 2 Elective abortions Hx Para 1 Spontaneous abortions Hx # Term Pregnancies Ectopic pregnancies Hx # Pregnancies Multiple births # of living children NST FHR Rate Baby A Baseline: 135 Variability:: Moderate Accelerations:: 15 x 15 Decelerations:: None NST Reactive:: Yes Uterine Activity:: Frequent Assessment & Plan (1) 38 weeks gestation of : (2) Uterine contractions: PLAN: Plan Discharge home undelivered
[2025-01-31 07:17] VITALS: PULSE 74; RESP 16; TEMP 37.1; O2SAT 97
[2025-01-31 07:18] VITALS: BP 124/82; PULSE 77
== END 2025-01-31 09:05 | disposition home or self-care (01) ==
LOC: WPOUT 05:16 → WP 05:17
PROVIDERS: PCP Family Medicine; Visit Provider Obstetrics & Gynecology
DX: O47.1 False labor at or after 37 completed weeks of gestation (principal); F17.290 Nicotine dependence, other tobacco product, uncomplicated; Z3A.38 38 weeks gestation of pregnancy
CPT/HCPCS: 59025; 59050; 81002; 99221; G0378

== ENCOUNTER 2025-02-07 12:18 | Inpatient (IN) | payer MEDICAID, SELFPAY ==
--- OUTSIDE RECORDS SUMMARY | 2025-02-01 13:10 | XMS RPT_ITS ---
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 Name Role Phone ANGELINE GRULLON Primary Care Unavailabl GRISEL Goins Attending Unavailable ANGELINE GRULLON Primary Care Unavailabl e HAMUSTAPHA, JAMES Referring Unavailable ANGELINE GRULLON Primary Care Unavailabl e GEO AMRIE Referring Unavailable ANGELINE GRULLON Primary Care Unavailabl GEO Morrison Attending Unavailable JAMES ZAOMRA Referring Unavailable ANGELINE GRULLON Primary Care Unavailabl e JAMES ZAMORA Attending Unavailable ANGELINE GRULLON Primary Care Unavailabl e JOSE VILLAFANA Attending Unavailable GEO MARIE Referring Unavailable ANGELINE GRULLON Primary Care Unavailabl e JOSE VILLAFANA Attending Unavailable ANGELINE GRULLON Primary Care Unavailabl e JOSE VILLAFANA Attending Unavailable ANGELINE GRULLON Primary Care Unavailabl e MARLENE CRUZ Attending Unavailable ANGELINE GRULLON Primary Care Unavailabl e JOSE VILLAFANA Attending Unavailable ANGELINE GRULLON Primary Care Unavailabl e ANGELINE GRULLON Primary Care Unavailabl e JAMES ZAMORA Attending Unavailable ANGELINE GRULLON Primary Care Unavailabl e HAMUSTAPHA, JAMES Referring Unavailable ANGELINE GRULLON Primary Care Unavailabl e WENDY LE Attending Unavailable ANGELINE GRULLON Primary Care Unavailabl e HAURY, JAMES Referring Unavailable ANGELINE GRULLON Primary Care Unavailabl e HAURY JAMES Attending Unavailable ADRIA VILLAFANAA Referring Unavailable ANGELINE GRULLON Primary Care Unavailabl e LEDY JOSE Referring Unavailable ANGELINE GRULLON Primary Care Unavailabl RGISEL Goins Attending Unavailable BELEN ZAMORAILY Referring Unavailable ANGELINE GRULLON Primary Care Unavailabl e JAMES ZAMORA Referring Unavailable GRISEL SHEN Attending Unavailable ANGELINE GRULLON Primary Care Unavailabl e ANGELINE GRULLON Primary Care Unavailabl e JAMES ZAMORA Attending Unavailable JAMES ZAMORA Attending Unavailable ANGELINE GRULLON Primary Care Unavailabl e KENNEY GRULLONER Jacob Primary Care Unavailabl e ANASTACIO GRULLONOPHER B Primary Care Unavailabl e GRISEL SHEN Attending Unavailable ANGELINE GRULLON Primary Care Unavailabl e GEO MARIE Attending Unavailable ANGELINE GRULLON Primary Care UnavailGRISEL Tavarez Referring Unavailable PROBLEMS DATE TYPE CONDITION / CODE ATTENDING STATUS [facility] 02/01/2025 Active 38 weeks gestati on of (HCC) / Z3A.38(ICD-10) JOSE VILLAFANA Active [facility] 01/28/2025 Active Pelvic pain duri ng (HCC) / O26.899(ICD-10) MARLENE CRUZ Active [facility] 01/28/2025 Active Pelvic pain duri ng (HCC) / R10.2(ICD-10) MARLENE CRUZ Active [facility] 01/25/2025 Active 37 weeks gestati on of (HCC) / Z3A.37(ICD-10) JOSE VILLAFANA Active [facility] 01/18/2025 Active 36 weeks gestati on of (HCC) / Z3A.36(ICD-10) JOSE VILLAFANA Active [facility] 01/18/2025 Active Nausea/vomiting in (HCC) / O21.9(ICD-10) JOSE VILLAFANA Active [facility] 01/15/2025 Active 35 weeks gestati on of (HCC) / Z3A.35(ICD-10) GEO MARIE Active [facility] 12/31/2024 Active 33 weeks gestati on of (HCC) / Z3A.33(ICD-10) GRISEL SHEN Active [facility] 12/31/2024 Active Vaginal discharg e / N89.8(ICD-10) GRISEL SHEN Active [facility] 12/03/2024 Active Supervision of h igh risk in third trimester (HCC) / O09.93(ICD-10) GRISEL SHEN Active [facility] 10/23/2024 Active Sickle cell gricel t / D57.3(ICD-10) GRISEL SHEN Active [facility] 08/03/2024 Active Rh negative stat e in antepartum period (HCC) / O26.899(ICD-10) GRISEL SHEN Active [facility] 08/03/2024 Active Rh negative stat e in antepartum period (HCC) / Z67.91(ICD-10) GRISEL SHEN Active [facility] 06/29/2024 Active Group beta Strep positive / B95.1(ICD-10) GRISEL SHEN Active [facility] 06/26/2024 Active Penicillin aller gy / Z88.0(ICD-10) GRISEL SHEN Active [facility] 06/26/2024 Active History of prete rm delivery, currently (HCC) / O09.899(ICD-10) GRISEL SHEN Active [facility] 12/17/2024 Active 31 weeks gestati on of (HCC) / Z3A.31(ICD-10) GRISEL SHEN Active [facility] 12/17/2024 Active Anemia complicat ing , third trimester (HCC) / O99.013(ICD-10) GRISEL SHEN Active [facility] 12/03/2024 Active 29 weeks gestati on of (HCC) / Z3A.29(ICD-10) JAMES ZAMORA Active [facility] 11/20/2024 Active 23 weeks gestati on of (HCC) / Z3A.23(ICD-10) NA Active [facility] 11/20/2024 Active Screening for di abetes mellitus / Z13.1(ICD-10) NA Active [facility] 10/23/2024 Active Supervision of h igh risk in second trimester (HCC) / O09.92(ICD-10) EWNDY LE Active [facility] 11/20/2024 Active 27 weeks gestati on of (HCC) / Z3A.27(ICD-10) WENDY LE Active [facility] 09/25/2024 Active 6 weeks gestatio n of (HCC) / Z3A.01(ICD-10) NA Active [facility] 06/26/2024 Active Vaginal itching / N89.8(ICD-10) GRISEL SHEN Active [facility] 09/25/2024 Active 19 weeks gestati on of (HCC) / Z3A.19(ICD-10) GRISEL SHEN Active [facility] 09/14/2024 Active 18 weeks gestati on of (HCC) / Z3A.18(ICD-10) GRISEL SHEN Active [facility] 06/26/2024 Active Encounter for supervision of high risk in first trimester, antepartum (HCC) / O09.91(ICD-10) JOSE VILLAFANA Active [facility] 08/31/2024 Active 16 weeks gestati on of (HCC) / Z3A.16(ICD-10) JOSE VILLAFANA Active [facility] 08/31/2024 Active History of prete rm delivery / Z87.51(ICD-10) JOSE VILLAFANA Active [facility] 08/31/2024 Active History of prete rm labor / Z87.51(ICD-10) NA Active [facility] 06/26/2024 Active Encounter for supervision of high risk in first trimester, antepartum / O09.91(ICD-10) NA Active [facility] 07/31/2024 Active 6 weeks gestatio n of / Z3A.01(ICD-10) NA Active [facility] 06/26/2024 Active with uncertain dates in first trimester / Z34.91(ICD-10) JAMES ZAMORA Active [facility] PROCEDURES No Procedure Records Found RESULTS PROGRESS Observed: 02/05/2025 10:01 AM Status: COMPLETED Source: [facility] HNO ID: [id number] Author: NUVIA AGULIAR MA Service: ? Author Type: Income Tax Adjuster Type: Progress Notes Filed: 02/05/2025 10:02 Note Text: POPULATION HEALTH NAVIGATION OUTREACH Action/ 2nd attempt: Called and left message to call back . Reason for Outreach Medicaid OB/Peds Care Gaps due: to PCP Visit Patient Contacted: Unable or unnecessary to reach patient: Unable to reach patient Left message Navigation Signature: Nuvia Ramirez MA February 05, 2025 10:01 AM PROGRESS Observed: 02/03/2025 12:08 PM Status: COMPLETED Source: [facility] HNO ID: [id number] Author: NUVIA AGUILAR MA Service: ? 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 MC message sent. PPC to PCP by 04/12/25. Reason for Outreach Medicaid OB/Peds Care Gaps due: to PCP Visit Patient Contacted: Unable or unnecessary to reach patient: Unable to reach patient Left message [employer] message sent Navigation Signature: Nuvia Ramirez MA February 03, 2025 12:09 PM CNPTOUTREADANTE Observed: 02/03/2025 12:00 AM Status: COMPLETED Source: [facility] Patient Outreach (NETNAV) MARLON GRANGER ([id number]) 1995 F Date Time Provider Department 02/03/25 NUVIA AGUILAR During your visit today, we recorded the following information about you: Nuvia Aguilar MA 02/03/2025 12:10 PM Signed POPULATION HEALTH NAVIGATION OUTREACH Action/ attempt: 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 MC message sent. PPC to PCP by 04/12/25. Reason for Outreach Medicaid OB/Peds Care Gaps due: to PCP Visit Patient Contacted: Unable or unnecessary to reach patient: Unable to reach patient Left message [employer] message sent Navigation Signature: Nuvia Ramirez MA February 03, 2025 12:09 PM Nuvia Aguilar MA 02/05/2025 10:02 AM Signed POPULATION HEALTH NAVIGATION OUTREACH Action/ 2nd attempt: Called and left message to call back . Reason for Outreach Medicaid OB/Peds Care Gaps due: to PCP Visit Patient Contacted: Unable or unnecessary to reach patient: Unable to reach patient Left message Navigation Signature: Nuvia Ramirez MA February 05, 2025 10:01 AM Allergies As of Date: 02/03/2025 Noted Allergy Reaction MONISTAT 1 (TIOCONAZOLE) 06/17/2024 5 - Intolerance Comments: Vaginal burning MOXIFLOXACIN 04/20/2024 5 - Intolerance Comments: Numbness PENICILLINS 06/07/2020 4 - Hives 14 - Other: See Comments Date Reviewed: 02/01/2025 Reviewed by: Nuvia Bolden MA - Fully Assessed Reason for Visit: Population Health Navigation Outreach [3910] Cmt: to PCP/OB Prescriptions as of 02/05/2025 - calcium carbonate (TUMS PO) Take by mouth. - famotidine (PEPCID) 20 mg tablet Take 1 tablet by mouth two times a day. - ferrous sulfate 220 mg (44 mg iron)/5 mL elixir Take 5 mL by mouth every other day. - VITAFUSION GUMMY TChS Take 1 tablet by mouth once daily. Problem List As Of Date 02/03/2025 Noted Resolved Penicillin allergy [Z88.0] 06/26/2024 History of delivery, currently *06/26/2024 Group beta Strep positive [B95.1] 06/29/2024 Rh negative state in antepartum period [O26.899*08/03/2024 Abnormal hemoglobin [D58.2] 08/12/2024 Sickle cell trait [D57.3] 08/13/2024 Supervision of high risk in third tri*10/23/2024 Anemia complicating , unspecified trim*11/20/2024 Encounter Status:Closed by NUVIA AGUILAR on 02/03/25 CNPN Observed: 01/28/2025 12:00 AM Status: COMPLETED Source: [facility] Telephone (OBGYWM) GRANGERMARLON Tata Palma ([id number]) 1995 F Date Time Provider Department 01/28/25 MARLENE CRUZWLynnette During your visit today, we recorded the following information about you: Nancy Harris RN 01/28/2025 10:25 AM Signed 37w5d Patient calling with multiple complaints that she had to call off work yesterday and today for. She has been having vaginal pain and pressure. No bleeding, leaking fluid, discharge or contractions. Good movement. Also has been having left leg/hip discomfort and swelling. States both feet swell up, but left is always worse even after sleeping. No pain, redness or warmth in any area of the left leg. Her left leg has intermittently been going numb. She is feeling movement well and mostly on the left side, so she feels position is causing the pressure on that side. Please advise. CHICHO Osuna Rebecca L, MD 01/28/2025 11:55 AM Signed My 2 PM should be canceled because she did not have her surgery. You can put her in my 2 PM slot MD Yandel Sanders Jennifer, RN 01/28/2025 12:00 PM Signed Patient notified. Appointment given. Grisel Humphries RN Allergies As of Date: 01/28/2025 Noted Allergy Reaction MONISTAT 1 (TIOCONAZOLE) 06/17/2024 5 - Intolerance Comments: Vaginal burning MOXIFLOXACIN 04/20/2024 5 - Intolerance Comments: Numbness PENICILLINS 06/07/2020 4 - Hives 14 - Other: See Comments Date Reviewed: 01/25/2025 Reviewed by: Nuvia Bolden MA - Fully Assessed Reason for Visit: OB- Pain [Other] Prescriptions as of 01/28/2025 - famotidine (PEPCID) 20 mg tablet Take 1 tablet by mouth two times a day. - ferrous sulfate 220 mg (44 mg iron)/5 mL elixir Take 5 mL by mouth every other day. - VITAFUSION GUMMY TChS Take 1 tablet by mouth once daily. Problem List As Of Date 01/28/2025 Noted Resolved Penicillin allergy [Z88.0] 06/26/2024 History of delivery, currently *06/26/2024 Group beta Strep positive [B95.1] 06/29/2024 Rh negative state in antepartum period [O26.899*08/03/2024 Abnormal hemoglobin [D58.2] 08/12/2024 Sickle cell trait [D57.3] 08/13/2024 Supervision of high risk in third tri*10/23/2024 Anemia complicating , unspecified trim*11/20/2024 Encounter Status:Closed by GRISEL HUMPHRIES on 01/28/25 CNCO Observed: 01/28/2025 12:00 AM Status: COMPLETED Source: [facility] Letter Text ROUTINE, GROUP B STREPTOCOCCUS BY PCR Observed: 01/18/2025 3:15 PM Status: F Source: [facility] GRP B STREPTOCOCCUS DNA, ROU KASIA : Detected Performed By: #### 584-3, GB PCR #### [facility] CLIA [id number] [address] [place] [address] [place] GP B STREP VAG QL CULT Observed: 025 3:15 PM Status: F Source: [facility] ORGANISM ID: 1 Positive for Streptococcus agalactiae (group b streptococcus) ORGANISM ID: 1 (STREPTOCOCCUS AGALACTIAE (GROUP B STREPTOCOCCUS)) ----- ----- ANTIBIOTIC INTERPRETATION ABDIAS STATUS REFERENCE RANGE ----- ----- Penicillin G S <=0.06 F Susceptible <=0.125 , Nonsusceptible >.125 Clindamycin R >16 F Susceptible <=0.25 , Intermediate >.25 , Resistant >.5 Vancomycin S <=0.50 F Susceptible <=1 , Nonsusceptible >1 Performed By: #### 584-3, GB PCR #### [facility] CLIA [id number] [address] [place] [address] [place] CBC W AUTO DIFF BLD Collected: 01/15/2025 3:[address] atus: F Source: [facility] Order Comment: Specimen Type : BLOOD SPECIMEN Ordering Facility: [facility] Address: [address] [place] [address] TYPE CODE TESTS RESULT OUT OF RANGE REFERENCE UNITS LAB 6690-2(LOINC) WBC # Bld Auto 16.43 High 3.70-11.00 k/uL LAB 789-8(INC) RBC # Bld Auto 4.20 3.90-5.20 m/ uL LAB 718-7(LOINC) Hgb Bld-mCnc 11.7 11.5-15.5 g/dL LAB 4544-3(INC) Hct VFr Bld Auto 34.0 Low 36.0-46.0 % LAB 787-2(LOINC) MCV RBC Auto 81.0 80.0-100.0 fL LAB 785-6(LOINC) MCH RBC Qn Auto 27.9 26.0-34.0 p g LAB 786-4(LOINC) MCHC RBC Auto-mCnc 34.4 30.5-36.0 g/dL LAB 13375-5(LOINC) RDW RBC-Rto 13.8 11.5-15.0 % LAB 777-3(LOINC) Platelet # Bld Auto 333 150-400 k/uL LAB 80593-0(LOINC) PMV Bld Auto 9.8 9.0-12.7 fL LAB 770-8(LOINC) Neutrophils/leuk NFr Bld Auto 74.1 % LAB 751-8(LOINC) Neutrophils # Bld Auto 12.17 High 1.45-7.50 k/uL LAB 736-9(LOINC) Lymphocytes/leuk NFr Bld Auto 12.1 % LAB 731-0(LOINC) Lymphocytes # Bld Auto 1.98 1.00-4.00 k/uL LAB 5905-5(LOINC) Monocytes/leuk NFr Bld Auto 10.1 % LAB 742-7(LOINC) Monocytes # Bld Auto 1.66 High <0.87 k/uL LAB 713-8(INC) Eosinophil/leuk NFr Bld Auto 1.9 % LAB 711-2(INC) Eosinophil # Bld Auto 0.32 <0.46 k/uL LAB 706-2(INC) Basophils/leuk NFr Bld Auto 0.4 % LAB 704-7(INC) Basophils # Bld Auto 0.07 <0.11 k/uL LAB 13526-6([facility]) Imm Granulocytes/david k NFr Bld Auto 1.4 % LAB 88180-9(INC) Imm Granulocytes # Bld Auto 0.23 High <0.10 k/uL LAB 18544-4([facility]) nRBC/100 WBC Bld-Rto 0.0 /100 WBC LAB 771-6([facility]) nRBC # Bld Auto <0.01 <0.01 k/u L LAB 59694-5([facility]) Differential method Bld Auto Performed By: #### 87987-5 # ### [facility] CLIA [id number] [address] [place] [address] [place] BACTERIAL VAGINOSIS NAAT Collected: 1:20 PM Status: F Source: [facility] Order Comment: Specimen Type : SWAB Ordering Facility: [facility] Address: [address] [place] [address] TYPE CODE TESTS RESULT OUT OF RANGE REFERENCE UNITS LAB 63451-0([facility]) BV bacteria rRNA Vag Ql RC+probe Not detected Not detected Performed By: #### 70470-4, BVAMP #### [facility] CLIA [id number] [place] C TRACH+GC DNA SPEC QL RC+PROBE Collected: 12/31/2024 1:20 PM Status: F Source: [facility] Order Comment: Specimen Type : SWAB Ordering Facility: [facility] Address: [address] [place] [address] TYPE CODE TESTS RESULT OUT OF RANGE REFERENCE UNITS LAB 32702-6(LOINC) N gonorrhoea rRNA Spec Ql RC+probe Not detected Not detected LAB 92097-5(LOINC) C trach rRNA Spec Ql RC+probe Not detected Not detected Performed By: #### 72288-6, BVAMP #### [facility] CLIA [id number] [address] [place] [address] OF [place] SHANNAN/TRICHOMONAS NAAT Collected: 1:20 PM Status: F Source: [facility] Order Comment: Specimen Type : SWAB Ordering Facility: [facility] Address: [address] [place] [address] TYPE CODE TESTS RESULT OUT OF RANGE REFERENCE UNITS LAB 17359-3(LOINC ) Shannan DNA Vag Ql RC+probe Not detected Not detected Result Comment: The Shannan species group target includes C. albicans, C. tropicalis, C. parapsilosis, and C. dubliniensis. LAB 63200-2(LOINC ) C glabrata RNA Vag Ql RC+probe Not detected Not detected LAB 98264-7(LOINC ) T vaginalis DNA Spec Ql RC+probe Not detected Not detected Performed By: #### CVTV #### [facility] CLIA [id number] [address] [place] [address] [place] CNPN Observed: 12/31/2024 12:00 AM Status: COMPLETED Source: [facility] Telephone (OBMgvWExecMobile) MARLON GRANGER Tata Palma ([id number]) 1995 F Date Time Provider Department 12/31/24 GRISEL SHEN During your visit today, we recorded the following information about you: Nancy Harris RN 12/31/2024 4:42 PM Signed Orders for belly band and compression stockings received from [employer]. Patient requested them at visit today. Signed by and faxed back. Nancy Harris RN Allergies As of Date: 12/31/2024 Noted Allergy Reaction MONISTAT 1 (TIOCONAZOLE) 06/17/2024 5 - Intolerance Comments: Vaginal burning MOXIFLOXACIN 04/20/2024 5 - Intolerance Comments: Numbness PENICILLINS 06/07/2020 14 - Other: See Comments Date Reviewed: 12/31/2024 Reviewed by: Grisel Shen MD - Fully Assessed Reason for Visit: DME Orders [Other] Prescriptions as of 12/31/2024 - ferrous sulfate 220 mg (44 mg iron)/5 mL elixir Take 5 mL by mouth every other day. - VITAFUSION GUMMY TChS Take 1 tablet by mouth once daily. Problem List As Of Date 12/31/2024 Noted Resolved Penicillin allergy [Z88.0] 06/26/2024 History of delivery, currently *06/26/2024 Group beta Strep positive [B95.1] 06/29/2024 Rh negative state in antepartum period [O26.899*08/03/2024 Abnormal hemoglobin [D58.2] 08/12/2024 Sickle cell trait [D57.3] 08/13/2024 Supervision of high risk in third tri*10/23/2024 Anemia complicating , unspecified trim*11/20/2024 Encounter Status:Closed by [facility]31/[facility] Observ[facility]: 12/24/2024 12:00 AM Status: COMPLETED Source: [facility] Telephone (OBGYWM) MARLON GRANGER Louie ([id number]) 1995 F Date Time Provider Department 12/24/24 JAMES ZAMORA During your visit today, we recorded the following information about you: Kelly Stern LPN 12/24/2024 4:09 PM Signed Order received from [employer] for breast pump. Order to Keerthi Zamora to sign Grisel Humphries RN 12/24/2024 4:19 PM Signed Faxed. Grisel Humphries RN Allergies As of Date: 12/24/2024 Noted Allergy Reaction MONISTAT 1 (TIOCONAZOLE) 06/17/2024 5 - Intolerance Comments: Vaginal burning MOXIFLOXACIN 04/20/2024 5 - Intolerance Comments: Numbness PENICILLINS 06/07/2020 14 - Other: See Comments Date Reviewed: 12/17/2024 Reviewed by: Grisel Shen MD - Fully Assessed Reason for Visit: Orders [681] Prescriptions as of 12/24/2024 - ferrous sulfate 220 mg (44 mg iron)/5 mL elixir Take 5 mL by mouth every other day. - VITAFUSION GUMMY TChS Take 1 tablet by mouth once daily. Problem List As Of Date 12/24/2024 Noted Resolved Penicillin allergy [Z88.0] 06/26/2024 History of delivery, currently *06/26/2024 Group beta Strep positive [B95.1] 06/29/2024 Rh negative state in antepartum period [O26.899*08/03/2024 Abnormal hemoglobin [D58.2] 08/12/2024 Sickle cell trait [D57.3] 08/13/2024 Supervision of high risk in third tri*10/23/2024 Anemia complicating , unspecified trim*11/20/2024 Encounter Status:Closed by GRISEL HUMPHRIES on 12/24/24 [facility] Observed: 12/08/2024 12:00 AM Status: COMPLETED Source: [facility] Telephone (OGFVWE) GRANGERMARLON Palma ([id number]) 1995 F Date Time Provider Department 12/08/24 [facility] During your visit today, we recorded the following information about you: Lili Bolaños, RN 12/08/2024 11:41 AM Signed 3rd risk assessment form submitted 12/08/24 Lili Bolaños RN Allergies As of Date: 12/08/2024 Noted Allergy Reaction MONISTAT 1 (TIOCONAZOLE) 06/17/2024 5 - Intolerance Comments: Vaginal burning MOXIFLOXACIN 04/20/2024 5 - Intolerance Comments: Numbness PENICILLINS 06/07/2020 14 - Other: See Comments Date Reviewed: 12/03/2024 Reviewed by: James Zamora APRN.MARKET RISK ANALYST - Fully Assessed Reason for Visit: PRAF [4193] Prescriptions as of 12/08/2024 - ferrous sulfate 220 mg (44 mg iron)/5 mL elixir Take 5 mL by mouth every other day. - VITAFUSION GUMMY TChS Take 1 tablet by mouth once daily. Problem List As Of Date 12/08/2024 Noted Resolved Penicillin allergy [Z88.0] 06/26/2024 History of delivery, currently *06/26/2024 Group beta Strep positive [B95.1] 06/29/2024 Rh negative state in antepartum period [O26.899*08/03/2024 Abnormal hemoglobin [D58.2] 08/12/2024 Sickle cell trait [D57.3] 08/13/2024 Supervision of high risk in third tri*10/23/2024 Anemia complicating , unspecified trim*11/20/2024 Encounter Status:Closed by LILI BOLAÑOS on 12/08/24 CNPN Observed: 12/07/2024 12:00 AM Status: COMPLETED Source: [facility] Telephone (OBMgvWM) MARLON GRANGER ([id number]) 1995 F Date Time Provider Department 12/07/24 GRISEL SHEN During your visit today, we recorded the following information about you: Grisel Humphries, CHICHO 12/07/2024 9:16 AM Signed 30w2d Patient needs a dental letter to have a cavity filled. She will contact their office and then call us back with their fax number. Patient has a PCN allergy - make note of this on the letter for dentist. CHICHO Mauricio Tara, RN 12/07/2024 1:12 PM Signed Jailyn Trotter RN 12/07/2024 1:35 PM Signed Spoke to re: letter. Omitted PCN and cephalosporins from generally permitted as Pt is just needing cavity filled AND known allergy documented. If Pt were to need antibiotic for more than just a cavity, dental office should contact office for further guidance. Letter faxed. Jailyn Trotter RN Allergies As of Date: 12/07/2024 Noted Allergy Reaction MONISTAT 1 (TIOCONAZOLE) 06/17/2024 5 - Intolerance Comments: Vaginal burning MOXIFLOXACIN 04/20/2024 5 - Intolerance Comments: Numbness PENICILLINS 06/07/2020 14 - Other: See Comments Date Reviewed: 12/03/2024 Reviewed by: James Zamora APRN.MARKET RISK ANALYST - Fully Assessed Reason for Visit: Letter for Dentist [Other] Prescriptions as of 12/07/2024 - ferrous sulfate 220 mg (44 mg iron)/5 mL elixir Take 5 mL by mouth every other day. - VITAFUSION GUMMY TChS Take 1 tablet by mouth once daily. Problem List As Of Date 12/07/2024 Noted Resolved Penicillin allergy [Z88.0] 06/26/2024 History of delivery, currently *06/26/2024 Group beta Strep positive [B95.1] 06/29/2024 Rh negative state in antepartum period [O26.899*08/03/2024 Abnormal hemoglobin [D58.2] 08/12/2024 Sickle cell trait [D57.3] 08/13/2024 Supervision of high risk in third tri*10/23/2024 Anemia complicating , unspecified trim*11/20/2024 Encounter Status:Closed by JAILYN TROTTER on 12/07/24 CNCO Observed: 12/07/2024 12:00 AM Status: COMPLETED Source: [facility] Letter Text HSV+VZV DNA SPEC QL RC+PROBE Collected : 12/03/2024 4:21 PM Status: F Source: [facility] Order Comment: Specimen Type : SWAB Ordering Facility: [facility] Address: [address] [place] [address] TYPE CODE TESTS RESULT OUT OF RANGE REFERENCE UNITS LAB 74100-1(LOINC) HSV1 DNA Spec Ql RC+probe Not Detected Not Detected LAB 99275-9(LOINC) HSV2 DNA Spec Ql RC+probe Not Detected Not Detected LAB 29499-2(LOINC) VZV DNA Spec Ql RC+probe Not Detected Not Detected Performed By: #### 03806-0 # ### [facility] CLIA [id number] [address] [place] [address] CNPN Observed: 11/23/2024 12:00 AM Status: COMPLETED Source: [facility] Telephone (SWETAGYWM) MARLON GRANGER ([id number]) 1995 F Date Time Provider Department 11/23/24 JAMES ZAMORA During your visit today, we recorded the following information about you: Jailyn Trotter RN 11/23/2024 12:57 PM Signed Pt calling re: Anemia/Iron labs as she saw results on Mychart and asking if a liquid Iron supplement can be prescribed. Please advise. CHICHO Sykes Jennifer, RN 11/23/2024 1:48 PM Signed Rx sent James Zamora APRN.Jailyn Hernández RN 11/23/2024 2:26 PM Addendum Pharmacy called and states 220mg/5mL w/44mg Iron is what they have in stock. States they can adjust Rx if Pt needs the 60mg of iron, but will need dispense amt changed. Spoke to [facility] and Rx pending as Pt will have recheck Iron level in 4 weeks. Pharmacist advised that new Rx will be sent. Updated mychart message sent to Pt. CHICHO Sykes Tara, RN 11/23/2024 2:26 PM Signed Addended by: JAILYN TROTTER on: 11/23/2024 02:26 PM Modules accepted: James Cook APRN.CNP 11/23/2024 2:28 PM Signed Addended by: JAMES ZAMORA on: 11/23/2024 02:28 PM Modules accepted: Nancy Thompson RN 11/25/2024 3:03 PM Signed Called and notified patient. The following approved medication requests have been transmitted electronically. Requested Prescriptions Signed Prescriptions Disp Refills ferrous sulfate 220 mg (44 mg iron)/5 mL elixir 75 mL 0 Sig: Take 5 mL by mouth every other day. Authorizing Provider: JAMES ZAMORA Pharmacy Information Pharmacy Address Telephone [facility] [address] [place] [address] Allergies As of Date: 11/23/2024 Noted Allergy Reaction MONISTAT 1 (TIOCONAZOLE) 06/17/2024 5 - Intolerance Comments: Vaginal burning MOXIFLOXACIN 04/20/2024 5 - Intolerance Comments: Numbness PENICILLINS 06/07/2020 14 - Other: See Comments Date Reviewed: 11/20/2024 Reviewed by: Ifeanyi Medina LPN - Fully Assessed Reason for Visit: Results [95] Primary Visit Diagnosis:Anemia complicating , third trimester (HCC) [O99.013] Order(s):ferrous sulfate 220 mg (44 mg iron)/5 mL elixirTake 5 mL by mouth every other day.Disp: 75 mLRfl: 0 Prescriptions as of 11/25/2024 - ferrous sulfate 220 mg (44 mg iron)/5 mL elixir Take 5 mL by mouth every other day. - aspirin, enteric coated (ECOTRIN LOW STRENGTH) 81 mg EC tablet Take 1 tablet by mouth once daily. - VITAFUSION GUMMY TChS Take 1 tablet by mouth once daily. Problem List As Of Date 11/23/2024 Noted Resolved Penicillin allergy [Z88.0] 06/26/2024 Vaginal itching [N89.8] 06/26/2024 History of delivery, currently *06/26/2024 Group beta Strep positive [B95.1] 06/29/2024 Rh negative state in antepartum period [O26.899*08/03/2024 Abnormal hemoglobin [D58.2] 08/12/2024 Sickle cell trait [D57.3] 08/13/2024 Supervision of high risk in second tr*10/23/2024 Anemia complicating , unspecified trim*11/20/2024 Prescriptions ordered this encounter Disp Refills Start End FERROUS SULFATE 300 MG (60 MG IRON)/* 5 mL 11 11/23/2024 11/23/2024 Route: PO Sig: Take 5 mL by mouth every other day. Disc: Other FERROUS SULFATE 220 MG (44 MG IRON)/* 75 mL 0 11/23/2024 12/23/2024 Cmt: Will recheck Pt's Iron level in 4 weeks. Route: PO Sig: Take 5 mL by mouth every other day. Medications Discontinued During This Encounter Prescriptions - ferrous sulfate 300 mg (60 mg iron)/5 mL syrup (Discontinued) Take 5 mL by mouth every other day. Encounter Status:Closed by JAMES ZAMORA on 11/23/24 BACTERIA UR CULT Observed: 11/20/2024 2:01 PM Status: F Source: [facility] ORGANISM ID: 1 <10,000 CFU/ml Normal urogenital kelvin Performed By: #### 630-4 ### # [facility] CLIA [id number] OF [place] TYPE + SCREEN Collected: 11/20/2024 2:00 PM Status: F Source: [facility] Comment: Specimen Type : BLOOD SPECIMEN Ordering Facility: [facility] Address: [address] [place] [address] TYPE CODE TESTS RESULT OUT OF RANGE REFERENCE UNITS LAB 0209524100 ABO B LAB [id number] RH Negative LAB [id number] ANTIBODY SCREEN Negative LAB 7699248716 TYPE AND SCREEN EXPIRATION 11/23/2024 23:59 Performed By: #### TSPN #### [facility] CLIA [id number] [address] [place] [address] [place] FERRITIN SERPL-MCNC Collected: 11/21/19 2:00 PM Status: F Source: [facility] Comment: Specimen Type : BLOOD SPECIMEN Ordering Facility: [facility] Address: [address] [place] [address] TYPE CODE TESTS RESULT OUT OF RANGE REFERENCE UNITS LAB 2276-4(LOINC) Ferritin SerPl-mCnc 10.5 Low 14.7-205.1 ng/mL Performed By: #### 2276-4, 5 0190-8 #### [facility] CLIA [id number] [address] [place] [address] [place] IRON+TIBC PNL SERPL Collected: 11/20/2024 2:[address] atus: F Source: [facility] Comment: Specimen Type : BLOOD SPECIMEN Ordering Facility: [facility] Address: [address] [place] [address] TYPE CODE TESTS RESULT OUT OF RANGE REFERENCE UNITS LAB 2498-4(LOINC) Iron SerPl-mCnc 37 Low 41-186 ug/dL LAB 2500-7(LOINC) TIBC SerPl-mCnc >537 High 232-386 ug/dL LAB 33408-3(LOINC) Iron/TIBC SerPl-sRto <6.9 Low 15.0-57.0 % Performed By: #### 2276-4, 5 0190-8 #### [facility] CLIA [id number] [address] [place] [address] REAGIN+T PALLIDUM IGG+IGM SERPL-IMP Collected: 11/20/2024 2:00 PM Status: F Source: [facility] Order Comment: Specimen Type : BLOOD SPECIMEN Ordering Facility: [facility] Address: [address] [place] [address] TYPE CODE TESTS RESULT OUT OF RANGE REFERENCE UNITS LAB 83132-9(INC) T pallidum IgG+IgM Ser Ql IA Nonreactive Nonreactive LAB 75968-2([facility]) Reagin+T pallidum IgG+IgM SerPl-Imp Cannot exclude recent Treponemal infection if specimen collected within 7-10 days after appearance of suspect lesions or 2-3 weeks after an exposure. Clinical correlation is required. Performed By: #### 38943-8 # ### [facility] CLIA [id number] [address] [place] [address] OF [place] CBC W AUTO DIFF BLD Collected: 11/20/2024 2:[address] atus: F Source: [facility] Order Comment: Specimen Type : BLOOD SPECIMEN Ordering Facility: [facility] Address: [address] [place] [address] TYPE CODE TESTS RESULT OUT OF RANGE REFERENCE UNITS LAB 6690-2(LOINC) WBC # Bld Auto 18.26 High 3.70-11.00 k/uL LAB 789-8(LOINC) RBC # Bld Auto 3.46 Low 3.90-5.20 m/ uL LAB 718-7(LOINC) Hgb Bld-mCnc 10.2 Low 11.5-15.5 g/dL LAB 4544-3(LOINC) Hct VFr Bld Auto 29.3 Low 36.0-46.0 % LAB 787-2(LOINC) MCV RBC Auto 84.7 80.0-100.0 fL LAB 785-6(LOINC) MCH RBC Qn Auto 29.5 26.0-34.0 p g LAB 786-4(LOINC) MCHC RBC Auto-mCnc 34.8 30.5-36.0 g/dL LAB 78831-4(LOINC) RDW RBC-Rto 12.1 11.5-15.0 % LAB 777-3([facility]) Platelet # Bld Auto 317 150-400 k/uL LAB 75327-1([facility]) PMV Bld Auto 9.6 9.0-12.7 fL LAB 770-8([facility]) Neutrophils/leuk NFr Bld Auto 77.5 % LAB 751-8([facility]) Neutrophils # Bld Auto 14.13 High 1.45-7.50 k/uL LAB 736-9([facility]) Lymphocytes/leuk NFr Bld Auto 13.0 % LAB 731-0([facility]) Lymphocytes # Bld Auto 2.38 1.00-4.00 k/uL LAB 5905-5([facility]) Monocytes/leuk NFr Bld Auto 6.7 % LAB 742-7([facility]) Monocytes # Bld Auto 1.23 High <0.87 k/uL LAB 713-8([facility]) Eosinophil/leuk NFr Bld Auto 1.2 % LAB 711-2([facility]) Eosinophil # Bld Auto 0.22 <0.46 k/uL LAB 706-2([facility]) Basophils/leuk NFr Bld Auto 0.4 % LAB 704-7([facility]) Basophils # Bld Auto 0.08 <0.11 k/uL LAB 48444-1([facility]) Imm Granulocytes/david k NFr Bld Auto 1.2 % LAB 36282-2([facility]) Imm Granulocytes # Bld Auto 0.22 High <0.10 k/uL LAB 87367-5([facility]) nRBC/100 WBC Bld-Rto 0.0 /100 WBC LAB 771-6([facility]) nRBC # Bld Auto <0.01 <0.01 k/u L LAB 04435-7([facility]) Differential method Bld Auto Performed By: #### 53123-6 # ### [facility] CLIA [id number] [address] [place] [address] [place] GESTATIONAL GLUCOSE SCREEN, 1-HOUR, 50 GRAM, NON-FASTING Collected: 11/20/2024 2:00 PM Status: F Source: [facility] Order Comment: Specimen Type : BLOOD SPECIMEN Ordering Facility: [facility] Address: [address], [place] [address] TYPE CODE TESTS RESULT OUT OF RANGE REFERENCE UNITS LAB 2345-7(LOINC) Glucose [facility] 110 74-134 mg/dL Result Comment: [place] beth of Obstetricians and Gynecologists (Robin/Rubin) guidelines state a gestational diabetes mellitus positive screen is made, in women not previously diagnosed with overt diabetes, when the 1 hr plasma glucose level is equal to or above 140 mg/dL. The [facility] Public Health Informatician and [facility] [place] recommends a 135 mg/dL cutoff. Performed By: #### GLTGST ## ## [facility] CLIA [id number] [address] [place] [address] [place] PROGRESS Observed: 11/20/2024 1:00 PM Status: COMPLETED Source: [facility] HNO ID: [id number] Author: IFEANYI MEDINA LPN Service: ? Author Type: LICENSED NURSE Type: Progress Notes Filed: 11/20/2024 15:36 Note Text: Marlon Granger 29 year old is here for her injection of Rhophylac. Marlon Granger had a negative Antibody Screen on 11/20/2024. Her blood type is B-. Marlon Granger is Rhophylac Negative Patient denied Rhogam given at prior location for this . Rhophylac injection was given without incident. Provider Wendy Le was present in office at time of injection. Marlon Granger was given her Rhophylac pocket card. Ifeanyi Medina LPN CNPN Observed: 10/26/2024 12:00 AM Status: COMPLETED Source: [facility] Telephone (OGFVWE) MARLON GRANGER ([id number]) 1995 F Date Time Provider Department 10/26/24 NURSE CLOCK SMITH TUNGW [facility] OGFVWE During your visit today, we recorded the following information about you: Lili oBlaños, RN 10/26/2024 8:35 AM Signed 2nd risk assessment form submitted 10/26/24 Lili Bolaños RN Allergies As of Date: 10/26/2024 Noted Allergy Reaction MONISTAT 1 (TIOCONAZOLE) 06/17/2024 5 - Intolerance Comments: Vaginal burning MOXIFLOXACIN 04/20/2024 5 - Intolerance Comments: Numbness PENICILLINS 06/07/2020 14 - Other: See Comments Date Reviewed: 10/23/2024 Reviewed by: James Zamora APRN.MARKET RISK ANALYST - Fully Assessed Reason for Visit: PRAF [4193] Prescriptions as of 10/26/2024 - aspirin, enteric coated (ECOTRIN LOW STRENGTH) 81 mg EC tablet Take 1 tablet by mouth once daily. - VITAFUSION GUMMY TChS Take 1 tablet by mouth once daily. Problem List As Of Date 10/26/2024 Noted Resolved Penicillin allergy [Z88.0] 06/26/2024 Vaginal itching [N89.8] 06/26/2024 History of delivery, currently *06/26/2024 Group beta Strep positive [B95.1] 06/29/2024 Rh negative state in antepartum period [O26.899*08/03/2024 Abnormal hemoglobin [D58.2] 08/12/2024 Sickle cell trait [D57.3] 08/13/2024 Supervision of high risk in second tr*10/23/2024 Encounter Status:Closed by LILI BOLAÑOS on 10/26/24 BACTERIAL VAGINOSIS NAAT Collected: 2:27 PM Status: F Source: [facility] Order Comment: Specimen Type : SWAB Ordering Facility: [facility] Address: [address] [place] [address] TYPE CODE TESTS RESULT OUT OF RANGE REFERENCE UNITS LAB 51945-0(LOINC) BV bacteria rRNA Vag Ql RC+probe Not detected Not detected Performed By: #### CVTV, BVA MP #### [facility] CLIA [id number] [address] [place] [address] [facility] SHANNAN/TRICHOMONAS NAAT Collected: 2:27 PM Status: F Source: [facility] Comment: Specimen Type : SWAB Ordering Facility: [facility] Address: [address] [place] [address] TYPE CODE TESTS RESULT OUT OF RANGE REFERENCE UNITS LAB 99230-7(LOINC ) Shannan DNA Vag Ql RC+probe Not detected Not detected Result Comment: The Shannan species group target includes C. albicans, C. tropicalis, C. parapsilosis, and C. dubliniensis. LAB 37738-0(LOINC ) C glabrata RNA Vag Ql RC+probe Not detected Not detected LAB 12040-9(LOINC ) T vaginalis DNA Spec Ql RC+probe Not detected Not detected Performed By: #### CVTV, BVA MP #### [facility] CLIA [id number] [address] [place] [address] OF [place] TYPE + SCREEN Collected: 07/31/2024 11:13 AM Status: F Source: [facility] Comment: Specimen Type : BLOOD SPECIMEN Ordering Facility: [facility] Address: [address] [place] [address] TYPE CODE TESTS RESULT OUT OF RANGE REFERENCE UNITS LAB 7798208170 ABO B LAB 8035517327 RH Negative LAB 9845871205 ANTIBODY SCREEN Negative LAB 6043952601 TYPE AND SCREEN EXPIRATION 08/03/2024 23:59 Performed By: #### TSPN #### [facility] CLIA [id number] [address] [place] [address] [place] HBV SURFACE AG SER QL Collected: 2024 11:13 AM Status: F Source: [facility] Comment: Specimen Type : BLOOD SPECIMEN Ordering Facility: [facility] Address: [address] [place] [address] TYPE CODE TESTS RESULT OUT OF RANGE REFERENCE UNITS LAB 5195-3(INC) HBV surface Ag Ser Ql Negative Negative Performed By: #### 25826-5, 5195-3, 77996-0 #### [facility] CLIA [id number] [address] [place] [address] [facility] HIV1+2 AB SERPL QL IA Collected: 2024 11:13 AM Status: F Source: [facility] Comment: Specimen Type : BLOOD SPECIMEN Ordering Facility: [facility] Address: [address] [place] [address] TYPE CODE TESTS RESULT OUT OF RANGE REFERENCE UNITS LAB 11919-8(LOINC) HIV 1+2 Ab+HIV1 p24 Ag SerPl Ql IA Nonreactive Nonreactive LAB 06066-4(LOINC) HIV 1 AND 2 Ab SerPlBld IA.rapid Result Comment: Test not ind icated. LAB 82060-6(LOINC) HIV IA algorithm interp SerPlBld-Imp Result Comment: No evidence of HIV-1 or HIV-2 infection. Should recent infection be suspected, repeat testing may be considered 2-3 weeks after this draw. [place] Rev. Code 3701.243(E): This information has been disclosed to you from confidential records protected from disclosure by state law. ???You shall make no further disclosure of this information without the specific, written, and informed release of the individual to whom it pertains or as otherwise permitted by state law. A general authorization for the release of medical or other information is not sufficient for the purpose of the release of HIV test results or diagnoses. Performed By: #### 00256-5, 5195-3, 82713-5 #### [facility] CLIA [id number] [address] [place] [address] OF [place] REAGIN+T PALLIDUM IGG+IGM SERPL-IMP Collected: 07/31/2024 11:13 AM Status: F Source: [facility] Comment: Specimen Type : BLOOD SPECIMEN Ordering Facility: [facility] Address: [address] [place] [address] TYPE CODE TESTS RESULT OUT OF RANGE REFERENCE UNITS LAB 58987-9(LOINC) T pallidum IgG+IgM Ser Ql IA Nonreactive Nonreactive LAB 90774-9([facility]) Reagin+T pallidum IgG+IgM SerPl-Imp Cannot exclude recent Treponemal infection if specimen collected within 7-10 days after appearance of suspect lesions or 2-3 weeks after an exposure. Clinical correlation is required. Performed By: #### 62832-0, 5195-3, 88794-3 #### [facility] CLIA [id number] [address] [place] [address] HGB EVALUATION CASCADE INTERP Collected: 07/31/2024 1 1:13 AM Status: F Source: [facility] Order Comment: Specimen Type : BLOOD SPECIMEN Ordering Facility: [facility] Address: [address] [place] [address] TYPE CODE TESTS RESULT OUT OF RANGE REFERENCE UNITS LAB HBINTEVAL INTERPRETATION (HGB EVAL) Result Comment: Hemoglobins were analyzed by capillary electrophoresis and CBC red cell parameters were reviewed. An abnormal hemoglobin was identified. Additional tests were therefore performed (high performance liquid chromatography (HPLC) and sickle solubility). Results consistent with sickle cell trait. LAB 43387-5(LOINC ) Hgb Fract Bld-Imp Reviewed by Bonita Evans M.D., Ph.D Performed By: #### [id number], SCKSALEISHA, HGBELEV, HGBPLC #### [facility] CLIA [id number] [address] [place] [address] [facility] HGB ELECTROPHORESIS FOR EVAL (LAB ORDER) Collected: 07/31/2024 11:13 AM Status: F Source: [facility] Order Comment: Specimen Type : BLOOD SPECIMEN Ordering Facility: [facility] Address: [address] [place] [address] TYPE CODE TESTS RESULT OUT OF RANGE REFERENCE UNITS LAB 4546-8(LOINC) Hgb A MFr Bld 57.8 Low 96.2-98.0 % LAB 4551-8(LOINC) Hgb A2 MFr Bld 2.9 2.0-3.1 % LAB 10509-9(LOINC) Hgb XXX MFr Bld Elph No abnormal hemoglobin identified. Result Comment: Abnormal hem oglobin present. Hb S = 39.3%. Performed By: #### [id number], SCKSOL, HGBELEV, HGBPLC #### [facility] CLIA [id number] [address] [place] [address] OF [place] SICKLE PREP SCREEN Collected: 11:13 AM Status: F Source: [facility] Comment: Specimen Type : BLOOD SPECIMEN Ordering Facility: [facility] Address: [address] [place] [address] TYPE CODE TESTS RESULT OUT OF RANGE REFERENCE UNITS LAB 6864-3(LOINC) Hgb S Bld Ql Sweta Positive Abnormal Negative Performed By: #### [id number], SCKSOL, HGBELEV, HGBPLC #### [facility] CLIA [id number] [address] [place] [address] OF [place] HB VARIANT HPLC Collected: 07/31/2024 11:13 AM Statu s: F Source: [facility] Comment: Specimen Type : BLOOD SPECIMEN Ordering Facility: [facility] Address: [address] [place] [address] TYPE CODE TESTS RESULT OUT OF RANGE REFERENCE UNITS LAB 83435-5(LOINC) Hgb HPLC + electrophoresis Pnl Bld Elution with the retention time of Hemoglobin A, Hemoglobin S and trace amounts of Hemoglobin F Performed By: #### [id number], SCKSOL, HGBELEV, HGBPLC #### [facility] CLIA [id number] [address] [place] [address] OF [place] RBC PARAMETERS FOR HB ID Collected: 11:13 AM Status: F Source: [facility] Comment: Specimen Type : BLOOD SPECIMEN Ordering Facility: [facility] Address: [address] [place] [address] TYPE CODE TESTS RESULT OUT OF RANGE REFERENCE UNITS LAB 789-8(LOINC) RBC # Bld Auto 4.21 3.90-5.20 m/uL LAB 718-7(LOINC) Hgb Bld-mCnc 12.5 11.5-15.5 g/dL LAB 4544-3(LOINC) Hct VFr Bld Auto 35.4 Low 36.0-46.0 % LAB 787-2(LOINC) MCV RBC Auto 84.1 80.0-100.0 fL LAB 785-6([facility]) MCH RBC Qn Auto 29.7 26.0-34.0 pg LAB 786-4([facility]) MCHC RBC Auto-mCnc 35.3 30.5-36.0 g/dL LAB 95953-5([facility]) RDW RBC-Rto 11.9 11.5-15.0 % Performed By: #### [id number] # ### [facility] CLIA [id number] [address] [place] [address] CBC W AUTO DIFF BLD Collected: 07/31/2024 11:13 AM S tatus: F Source: [facility] Order Comment: Specimen Type : BLOOD SPECIMEN Ordering Facility: [facility] Address: [address] [place] [address] TYPE CODE TESTS RESULT OUT OF RANGE REFERENCE UNITS LAB 6690-2([facility]) WBC # Bld Auto 11.68 High 3.70-11.00 k/uL LAB 789-8([facility]) RBC # Bld Auto 4.25 3.90-5.20 m/ uL LAB 718-7([facility]) Hgb Bld-mCnc 12.5 11.5-15.5 g/dL LAB 4544-3([facility]) Hct VFr Bld Auto 35.1 Low 36.0-46.0 % LAB 787-2([facility]) MCV RBC Auto 82.6 80.0-100.0 fL LAB 785-6([facility]) MCH RBC Qn Auto 29.4 26.0-34.0 p g LAB 786-4([facility]) MCHC RBC Auto-mCnc 35.6 30.5-36.0 g/dL LAB 36801-5([facility]) RDW RBC-Rto 11.9 11.5-15.0 % LAB 777-3([facility]) Platelet # Bld Auto 250 150-400 k/uL LAB 50703-9([facility]) PMV Bld Auto 9.7 9.0-12.7 fL LAB 770-8([facility]) Neutrophils/leuk NFr Bld Auto 70.5 % LAB 751-8([facility]) Neutrophils # Bld Auto 8.23 High 1.45-7.50 k/uL LAB 736-9(LOINC) Lymphocytes/leuk NFr Bld Auto 19.9 % LAB 731-0(LOINC) Lymphocytes # Bld Auto 2.32 1.00-4.00 k/uL LAB 5905-5(LOINC) Monocytes/leuk NFr Bld Auto 6.9 % LAB 742-7(LOINC) Monocytes # Bld Auto 0.81 <0.87 k/uL LAB 713-8(LOINC) Eosinophil/leuk NFr Bld Auto 2.0 % LAB 711-2(INC) Eosinophil # Bld Auto 0.23 <0.46 k/uL LAB 706-2(INC) Basophils/leuk NFr Bld Auto 0.3 % LAB 704-7(INC) Basophils # Bld Auto 0.04 <0.11 k/uL LAB 71820-3([facility]) Imm Granulocytes/david k NFr Bld Auto 0.4 % LAB 40120-7([facility]) Imm Granulocytes # Bld Auto 0.05 <0.10 k/uL LAB 78144-0([facility]) nRBC/100 WBC Bld-Rto 0.0 /100 WBC LAB 771-6([facility]) nRBC # Bld Auto <0.01 <0.01 k/u L LAB 00718-0([facility]) Differential method Bld Auto Performed By: #### 59722-4 # ### [facility] CLIA [id number] [address] [place] [address] [place] DEPRECATED HGB A1C BLD Collected: 07/31 11:13 AM Status: F Source: [facility] Order Comment: Specimen Type : BLOOD SPECIMEN Ordering Facility: [facility] Address: [address] [place] [address] TYPE CODE TESTS RESULT OUT OF RANGE REFERENCE UNITS LAB 4548-4([facility]) HbA1c MFr Bld 5.2 4.3-5.6 % Result Comment: A heterozygo us hemoglobin variant was possibly detected. Most heterozygous hemoglobin variants do not interfere with this assay. However, interpret this hemoglobin A1c result within the patient's clinical context, as the lifespan of red blood cells may be altered. If identification of a previously unidentified hemoglobin variant is clinically indicated, consider ordering the hemoglobin evaluation cascade test. [place] [employer] guidelines indicate that patients with HgbA1c in the range 5.7-6.4% are at increased risk for development of diabetes, and intervention by lifestyle modification may be beneficial. HgbA1c greater or equal to 6.5% is considered diagnostic of diabetes. LAB 33939-5(LOINC) Est. average glucose Bld gHb Est-mCnc 103 mg/dL Result Comment: eAG: (Estima patience average glucose) is a calculated value from HgbA1c and is computer help desk representative of the average blood glucose level in the last 2-3 month period. Performed By: #### [id number] # ### [facility] CLIA [id number] [address] [place] [address] OF CARLOS [id number] PLUS Collected: 07/31/2024 11:13 AM Statu s: F Source: [facility] Order Comment: Specimen Type : BLOOD SPECIMEN Ordering Facility: [facility] Address: [address] [place] [address] TYPE CODE TESTS RESULT OUT OF RANGE REFERENCE UNITS LAB 15378-7(LOINC ) Fet Chr 21 Ts Plas.cfDNA Ql Negative LAB 77496-7(LOINC ) Fet Ts 18 risk WBC.DNA+cfDNA Ql Negative LAB 19700-1(LOINC ) Fet Ts 13 risk Plas.cfDNA Ql Negative LAB 95348-5(LOINC ) Fet sex Plas.cfDNA Dosage cfDNA Comment Result Comment: Consistent w ith Female LAB 39619-9(LOINC ) Fet Ms X risk WBC.DNA+cfDNA Ql Not Detected LAB 90859-9(LOINC ) Fet X + Y aneup risk Plas.cfDNA Seq-Imp Not Detected Result Comment: Not Detected Not Detected LAB 22493-3(LOINC ) Fet 13+18+21+X+Y aneup Plas.cfDNA Negative LAB SPPV POSITIVE PREDICTIVE VALUE N/A LAB NEGPREVA NEGATIVE PREDICTIVE VALUE Note Result Comment: The Negative Predictive Value (NPV) for trisomy 21, 18, and 13 is greater than 99%. The NPV for SCA and ESS cannot be calculated as SCA and ESS are only reported when an abnormality is detected. LAB 37550-0(LOINC ) cfDNA.fet/cfDNA.to darya SFr Fetus 25% LAB 38122-1([facility] ) GA Est from conception date Hodge LAB SGAG9 GESTATIONALAGE A GE > OR = 9W Yes LAB 16726-5([facility] ) clinical informatics director name Provider Comment Result Comment: This specime n showed an expected representation of chromosome 21, 18 and 13 material. Clinical correlation is suggested. Comment Jorge Padilla MD, PhD, Director, [employer] LAB 56644-4([facility] ) Ref lab test method Comment Result Comment: See Notes Circulating cell-free DNA was purified from the plasma component of maternal blood. The extracted DNA was then converted into a genomic DNA library for aneuploidy analysis of chromosomes 21, 18, and 13 via next generation sequencing.[1] Optional findings based on the test order include sex chromosome aneuploidy (SCA)[2], and enhanced sequencing series (ESS)[3], which will only be reported on as an additional finding when an abnormality is detected. SCA testing includes information on X and Y representation, while ESS testing includes deletions in selected regions (22q, 15q, 11q, 8q, 5p, 4p, 1p) and trisomy of chromosomes 16 and 22. LAB 75449-5([facility] ) Laboratory comment Report Comment Result Comment: The MaterniT (R) 21 PLUS laboratory-developed test (LDT) analyzes circulating cell-free DNA from a maternal blood sample. This test is used for screening purposes and not diagnostic. Clinical correlation is recommended. Validation data on twin pregnancies is limited and the ability of this test to detect aneuploidy in higher multiple gestations has not yet been validated. LAB 47916-2([facility] ) Test performance info Spec Comment Result Comment: The performa nce characteristics of the MaterniT(R) 21 PLUS laboratory-developed test (LDT) have been determined in a clinical validation study with women at increased risk for chromosomal aneuploidy.[1-4] LAB [facility] PERFORMANCE CHARACTERISTICS Note Result Comment: ! Sex ! Accuracy: 99.4% ! ! ! ! Region (associated syndrome) ! Est. Sens# ! Est. Spec ! ! ! ! Trisomy 21 (Down Syndrome) ! 99.1% ! 99.9% ! ! ! ! Trisomy 18 (Partida Syndrome) ! >99.9% ! 99.6% ! ! ! ! Trisomy 13 (Patau Syndrome) ! 91.7% ! 99.7% ! ! ! ! Sex Chromosome Aneuploidies## ! 96.2% ! 99.7% ! ! ! * As reported in [facility] database nstd37 [https://www.ncbi.nlm.nih.gov/dbvar/studies/nstd37/ ] # Estimated Sensitivity. Sensitivity estimated across the observed size distribution of each syndrome [per [employer] database nstd37] and across the range of fractions observed in routine clinical NIPT. Actual sensitivity can also be influenced by other factors such as the size of the event, total sequence counts, amplification bias, or sequence bias. ## Hodge gestation only. LAB MTLMT LIMITATIONS OF T HE TEST Comment Result Comment: While the re sults of these tests are highly reliable, discordant results, including inaccurate sex prediction, may occur due to placental, maternal, or mosaicism or neoplasm; vanishing twin; prior maternal organ transplant; or other causes. These tests are screening tests and not diagnostic; they do not replace the accuracy and precision of diagnosis with CVS or amniocentesis. A patient with a positive test result should be referred for genetic counseling and offered invasive diagnosis for confirmation of test results.[5] The results of this testing, including the benefits and limitations, should be discussed with a qualified healthcare provider. management decisions, including termination of the , should not be based on the results of these tests alone. The healthcare provider is responsible for the use of this information in the management of their patient. Sex chromosomal aneuploidies are not reportable for known multiple gestations. A negative result does not ensure an unaffected nor does it exclude the possibility of other chromosomal abnormalities or defects which are not a part of these tests. An uninformative result may be reported, the causes of which may include, but are not limited to, insufficient sequencing coverage, noise or artifacts in the region, amplification or sequencing bias, or insufficient fraction. These tests are not intended to identify pregnancies at risk for neural tube defects or ventral wall defects. Testing for whole chromosome abnormalities (including sex chromosomes) and for subchromosomal abnormalities could lead to the potential discovery of both and maternal genomic abnormalities that could have major, minor, or no, clinical significance. Evaluating the significance of a positive or a non-reportable result may involve both invasive testing and additional studies on the mother. Such investigations may lead to a diagnosis of maternal chromosomal or subchromosomal abnormalities, which on occasion may be associated with benign or malignant maternal neoplasms. These tests may not accurately identify triploidy, balanced rearrangements, or the precise location of subchromosomal duplications or deletions; these may be detected by diagnosis with CVS or amniocentesis. The ability to report results may be impacted by maternal BMI, maternal weight, maternal systemic lupus erythematosus (SLE) and/or by certain pharmaceutical agents such as low molecular weight heparin (for example: Lovenox(R), Xaparin(R), Clexane(R) and Fragmin(R)). LAB 8251-1([facility]) Service Cmnt-Imp Comment Result Comment: See Notes [employer] is a subsidiary of [employer], using the brand [employer]. This test was developed and its performance characteristics determined by [employer]. It has not been cleared or approved by the Food and Drug Administration. This laboratory is certified under the Clinical Laboratory Improvement Amendments (CLIA) as qualified to perform high complexity clinical laboratory testing and accredited by the [employer] (CAP). If there is future clinical need for adding MaterniT GENOME testing, this specimen will be available until term. [facility] samples will not be retained beyond 60 days. [facility] patients will have to send a new sample for re-sequencing ([facility] Test Code: 068039). LAB 53266-2([facility] ) Citation Ref Lab Test Comment Result Comment: 1. Daily TIRADO, et al. Jadyn Med. 2012;14(3):296-305. 2. Leonard CHUNG et al. Prenat Diag. 2013;33(6):591-597. 3. Phoenix C, et al. Clin Chem. 2015 Apr;61(4):608-616. 4. Daily TIRADO, et al. Jadyn Med. 2011;13(11):913-920. 5. ACOG/SMFM Practice Bulletin No. 226, Feb 2020. Performed By: #### MAT21 ### # [facility] [place] [id number] [address] [place] [address] HCV AB SER QL Collected: 5 11:13 AM Status: F Source: [facility] Comment: Specimen Type : BLOOD SPECIMEN Ordering Facility: [facility] Address: [address] [place] [address] TYPE CODE TESTS RESULT OUT OF RANGE REFERENCE UNITS LAB 64936-0([facility]) HCV Ab Ser Ql Negative Negative Result Comment: The result s uggests no evidence of infection with Hepatitis C virus. Should recent infection be suspected, repeat testing may be considered 4-6 weeks after this draw. Performed By: #### 35862-4 # ### [facility] CLIA [id number] [address] [place] [address] CARLOS RUBELLA IGG ANTIBODY Collected: 025 11:13 AM Status: F Source: [facility] Order Comment: Specimen Type : BLOOD SPECIMEN Ordering Facility: [facility] Address: [address] [place] [address] TYPE CODE TESTS RESULT OUT OF RANGE REFERENCE UNITS LAB RUBGQL RUBELLA IGG AB, QUAL Positive Positive Result Comment: The result s uggests recent or past exposure to Rubella virus or history of Rubella vaccination. Positive result may also be seen due to presence of passively-transferred antibodies. Please correlate with patient's history. Performed By: #### RUBIGG ## ## [facility] CLIA [id number] [address] [place] [address] CNPN Observed: 07/21/2024 12:00 AM Status: COMPLETED Source: [facility] Telephone (OBGYWM) MARLON GRANGER ([id number]) 1995 F Date Time Provider Department 07/21/24 GRISEL SHEN OBEDIN During your visit today, we recorded the following information about you: Jailyn Trotter, RN 07/21/2024 3:18 PM Signed 10w3d Pt calling stating last week she was spotting when wiping-light pink in color and today/slimy consistency. Nothing on underwear. Denies pain. Denies sexual intercourse/anything in vagina last 48 hours Advised Pt to continue to monitor for severe abdominal pain, and to place pad on and monitor for bleeding and If she begins to bleed/becomes heavy to where she is saturating a pad (front to back, side to side) in one hour or less for two hours or more, develops shortness of breath, chest pain, dizziness, or fatigue to please call the office or go to the nearest Emergency Room. Advised Pt to avoid sexual intercourse or placing anything in vagina until this dissipates and advised to stay hydrated. Informed Pt message would be sent to o/c provider and if additional guidance is needed, we would let her know, but otherwise to continue to monitor at this time. CHICHO Sykes Jennifer, MD 07/21/2024 4:13 PM Signed Agree with advice Allergies As of Date: 07/21/2024 Noted Allergy Reaction MONISTAT 1 (TIOCONAZOLE) 06/17/2024 5 - Intolerance Comments: Vaginal burning MOXIFLOXACIN 04/20/2024 5 - Intolerance Comments: Numbness PENICILLINS 06/07/2020 14 - Other: See Comments Date Reviewed: 06/26/2024 Reviewed by: James Zamora APRN.MARKET RISK ANALYST - Fully Assessed Reason for Visit: Spotting early [Other] Prescriptions as of 07/21/2024 - aspirin, enteric coated (ECOTRIN LOW STRENGTH) 81 mg EC tablet Take 1 tablet by mouth once daily. - VITAFUSION GUMMY TChS Take 1 tablet by mouth once daily. Problem List As Of Date 07/21/2024 Noted Resolved Penicillin allergy [Z88.0] 06/26/2024 Encounter for supervision of high risk pregnanc*06/26/2024 Vaginal itching [N89.8] 06/26/2024 Current with history of pre-term labo*06/26/2024 History of delivery, currently *06/26/2024 Group beta Strep positive [B95.1] 06/29/2024 Encounter Status:Closed by JAILYN TROTTER on 07/21/24 CNPN Observed: 06/30/2024 12:00 AM Status: COMPLETED Source: [facility] Telephone (OGFVWE) MARLON GRANGER ([id number]) 1995 F Date Time Provider Department 06/30/24 [facility] CLOCK [facility] OGFVWE During your visit today, we recorded the following information about you: Lili Bolaños, RN 06/30/2024 10:52 AM Signed 1st risk assessment form submitted 06/30/24 Lili Bolaños RN Allergies As of Date: 06/30/2024 Noted Allergy Reaction MONISTAT 1 (TIOCONAZOLE) 06/17/2024 5 - Intolerance Comments: Vaginal burning MOXIFLOXACIN 04/20/2024 5 - Intolerance Comments: Numbness PENICILLINS 06/07/2020 14 - Other: See Comments Date Reviewed: 06/26/2024 Reviewed by: James Zamora APRN.MARKET RISK ANALYST - Fully Assessed Reason for Visit: PRAF [4193] Prescriptions as of 06/30/2024 - clindamycin phosphate (CLEOCIN) 2 % vaginal cream Use 1 Applicatorful vaginally daily at bedtime for 7 days. - aspirin, enteric coated (ECOTRIN LOW STRENGTH) 81 mg EC tablet Take 1 tablet by mouth once daily. - VITAFUSION GUMMY TChS Take 1 tablet by mouth once daily. Problem List As Of Date 06/30/2024 Noted Resolved Penicillin allergy [Z88.0] 06/26/2024 Encounter for supervision of high risk pregnanc*06/26/2024 Vaginal itching [N89.8] 06/26/2024 Current with history of pre-term labo*06/26/2024 History of delivery, currently *06/26/2024 Group beta Strep positive [B95.1] 06/29/2024 Encounter Status:Closed by LILI BOLAÑOS on 06/30/24 SHANNAN/TRICHOMONAS NAAT Collected: 10:54 AM Status: F Source: [facility] Order Comment: Specimen Type : SWAB Ordering Facility: [facility] Address: [address] [place] [address] TYPE CODE TESTS RESULT OUT OF RANGE REFERENCE UNITS LAB 39253-0([facility] ) Shannan DNA Vag Ql RC+probe Detected Abnormal Not detected Result Comment: The Shannan species group target includes C. albicans, C. tropicalis, C. parapsilosis, and C. dubliniensis. LAB 92383-4(LOINC ) C glabrata RNA Vag Ql RC+probe Not detected Not detected LAB 63665-8([facility] ) T vaginalis DNA Spec Ql RC+probe Not detected Not detected Performed By: #### CVTV #### [facility] CLIA [id number] [address] [place] [address] [place] [address] [place] PAP TEST Collected: 10:54 AM Status: F Source: [facility] Order Comment: Specimen Type : FLUID SPECIMEN Ordering Facility: [facility] Address: [address] [place] [address] TYPE CODE TESTS RESULT OUT OF RANGE REFERENCE UNITS PATHOLOGY [id number] CASE REPORT Result Comment: Gynecologic Cytology Report Case: [id number] Authorizing Provider: James Zamora APRN.MARKET RISK ANALYST Collected: 06/26/2024 10:54 AM Ordering Location: OB/Gynecology Received: 06/26/2024 12:02 PM First Screen: Pat Jasmine Specimen: Pap Test, ThinPrep, Cervix PATHOLOGY [id number] ADEQUACY Satisfactory for interpretation . PATHOLOGY [id number] INTERPRETATION, CYTOLOGY, SECURITY SUPPORT ANALYST Result Comment: Negative for intraepithelial lesion or malignancy. at 1135 EST PATHOLOGY [id number] CYTOLOGY PAP OTHER INTERPRETATION Predominance of coccobacilli consistent with shift in vaginal kelvin. PATHOLOGY [id number] CLINICAL HISTORY, CYTOLOGY, SECURITY SUPPORT ANALYST (Indicate Weeks) PATHOLOGY [id number] LMP 05/09/2024 PATHOLOGY PAPDC PAP DISCLAIMER COMMENT The Pap Smear is a screening test for cervical cancer. False negative results occur with all screening tests, emphasizing the need for rescreening at recommended intervals, and clinical correlation. PATHOLOGY PAPIC PAP COBOL DEVELOPER COMMENT This specimen has been analyzed by the ThinPrep Imaging System, an automated imaging and review system, which assists the laboratory in evaluating cells on ThinPrep Pap tests. Following automated imaging, selected guerra from every slide are reviewed by a cytotechnologi . PATHOLOGY [facility] FINAL PERFORMING LAB Result Comment: Technical co mponent, deputy prosecuting attorney screening performed at [facility], [address] [place] [address] CLIA# [id number] Diagnostic interpretation performed at [facility], [address] [place], [place] [id number] CLIA# [id number] Anatomic Pathology Assistant: Khadar Camacho M.D. Performed By: #### [id number] # ### [facility] CLIA [id number] [address] [place] [address] [place] BACTERIA UR CULT Observed: 06/26/2024 10:54 AM Status: F Source: [facility] ORGANISM ID: 1 10,000 -<50,000 CFU/ml Normal urogenital kelvin Streptococcus agalactiae (Group B streptococcus) was identified in this specimen, which is clinically relevant if the individual is . Performed By: #### 630-4 ### # [facility] CLIA [id number] [address] [place] [address] [place] C TRACH+GC DNA SPEC QL RC+PROBE Collected: 06/26/2024 10:54 AM Status: F Source: [facility] Order Comment: Specimen Type : SWAB Ordering Facility: [facility] Address: [address] [place] [address] TYPE CODE TESTS RESULT OUT OF RANGE REFERENCE UNITS LAB 97135-7(LOINC) N gonorrhoea rRNA Spec Ql RC+probe Not detected Not detected LAB 32679-2(LOINC) C trach rRNA Spec Ql RC+probe Not detected Not detected Performed By: #### BVAMP, 36 902-5 #### [facility] CLIA [id number] [address] [place] [address] [place] BACTERIAL VAGINOSIS NAAT Collected: 10:54 AM Status: F Source: [facility] Order Comment: Specimen Type : SWAB Ordering Facility: [facility] Address: [address] [place] [address] TYPE CODE TESTS RESULT OUT OF RANGE REFERENCE UNITS LAB 58508-0(LOINC) BV bacteria rRNA Vag Ql RC+probe Detected Abnormal Not detected Performed By: #### BVAMP, 36 902-5 #### [facility] CLIA [id number] [address] [place] [address] [place] PROGRESS Observed: 06/26/2024 9:32 AM Status: COMPLETED [facility] [id number] Author: JAMES ZAMORA APRN.MARKET RISK ANALYST Service: ? Author Type: Nurse Practitioner Type: Progress Notes Filed: 06/26/2024 10:41 Note Text: INITIAL OB ASSESSMENT HPI: [place] is a 29 year old Black here to establish Obstetrical Care. Patient's last menstrual period was 04/07/2024 (approximate). from OB Dating Form. was unplanned but accepted Complaints: No OB History Gravida1 Para1 Term0 Preterm0 AB0 Living1 SAB0 IAB0 Ectopic0 Multiple0 Live Births0 Previous history: Prior : never History of 4th degree laceration: No History of shoulder dystocia: No History of Hypertensive disorders including pre-eclampsia or gestational hypertension: No History of gestational diabetes: No Patient's Risk Screening for delivery: Have you had a prior hodge between 20w and 36w6d? Yes Did you present in active spontaneous labor or have ruptured membranes, or advanced cervical dilation (greater than or equal to 4 cm) or effacement? Yes How many pregnancies have you had before? 1 Did you have a previous baby with a GBS Infection? No Please select all that apply for any prior : N/A MEDICAL/PSYCHOSOCIAL HISTORY: History of hemorrhage or bleeding concerns: No Thyroid Disease: No History of chronic hypertension: No History of pre-existing diabetes: No No results found for: ABORHD No weight on file for this encounter. Last Pap: History of abnormal pap: No Prior treatment for cervical dysplasia: none. Last HPV: 09/13/2022 positive History of STDs: chlamydia Partner History of STDs: no Did you have a partner with Herpes? No Tobacco use: Yes- stopped when found out E-Cigarette/Vaping Use: No Caffeine use: No Drug use: No Alcohol use: No Multivitamin with Folic acid: No Would refuse blood transfusion if medically necessary: No Social Needs: How often does this describe you? I don't have enough money to pay my bills: Never Within the past 12 months, have you worried that your food would run out before you had money to buy more? Never In the past 12 months, has lack of reliable transportation kept you from going to medical appointments or work, or from getting things needed for daily living? Never In the past 12 months, have you had any concerns about having a place to live, or about the condition or quality of your housing? Never Would you like more information on any of the following (please check all that apply)? 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 No Do you have a history of abuse or trauma that may impact your experience? No Are you currently employed? Yes Depression/Anxiety Screening: denies symptoms of depression. OB Depression and Anxiety Screening- This Encounter (since 06/25/2024) Over the past 2 weeks have you felt down, depressed, or hopeless? Negative Over the past two weeks, have you felt little interest or pleasure in doing things?? Negative Feeling nervous, anxious or on edge 0-Not at all Not being able to stop or control worrying 0-Not al all Anxiety Pre-Screening Total (If >/= 3 additional questions will be reviewed) 0 Genetic Screening: Partner present: Yes Patient verbalized knowledge of partner family health history: Yes Do you or your partner have any personal or family history of defects not previously discussed: No Do you have history of a complicated by anomaly, genetic condition, or demise: No Preeclampsia Risk Screening: Screening for prevention of preeclampsia: High risk factors: None Moderate risk ractors: Sociodemographic characteristics ( race, low socioeconomic status) OB Risk Screening: Completed, no positive findings documented. 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 No current facility-administered medications for this visit. Allergies As of Date: 06/26/2024 Allergen Noted Reaction MONISTAT 1 [TIOCONAZOLE] 06/17/2024 Intolerance MOXIFLOXACIN 04/20/2024 Intolerance PENICILLINS 06/07/2020 Other: See Comments Fully Assessed 06/17/2024 Does patient have penicillin allergy: Yes, plan for allergy testing. REVIEW OF SYSTEMS: GENERAL: Negative for: Fever or Chills HEENT: Negative for: Headache, Impaired Vision, Ringing in Ears, Nosebleeds NECK: Negative for: Swelling, Pain, Stiffness RESPIRATORY: Negative for: Cough, Shortness of breath, Wheezing GASTROINTESTINAL: Negative for: Heartburn,=, Diarrhea, Blood in stool + constipation and nausea MUSCULOSKELETAL: Negative for: Muscle or joint pain, stiffness, Joint swelling NEUROLOGIC/PSYCHIATRIC: Negative for: Weakness, Paralysis, Numbness, Tingling, Tremor, Anxiety, Depression, Memory loss SKIN: Negative for: Rash, Itching GENITOURINARY: Negative for: vaginal discharge, hematuria or dysuria + vaginal itching SENSITIVE EXAM: The sensitive examination was discussed with the Patient or Patient's Authorized Well Digger. As applicable, any other physician, advance practice provider, medical student, or other health professional student that will be observing or involved in the sensitive examination for educational or training purposes was discussed with the Patient or Authorized Well Digger. The Patient or Authorized Well Digger has agreed to proceed with the sensitive examination. (Sensitive examination includes inspection and/or palpation of the breasts, pelvis, prostate and anorectal regions). PHYSICAL EXAM: BP 118/62 Ht 5' 4 (1.63m) Wt 117 lb (53.1kg) LMP 05/09/2024 BMI 20.07 kg/(m2). GENERAL: pleasant in no apparent distress DERMATOLOGY: Normal, without lesions, non-icteric, and non-hirsute NECK: Supple, full range of motion, no adenopathy, and thyroid normal CHEST: Normal inspiratory effort BREAST: soft, non-tender, symmetric, no dominant mass, normal nipple-areolar complex, no lymphadenopathy, and no nipple discharge + piercings bilaterally ABDOMEN: soft, non-tender, and no masses NEURO: alert and oriented x3,exam grossly non-focal PELVIS: External genitalia normal without lesions. Perineal body intact. No vaginal or cervical lesions. Cervix closed. Uterus <8 week size. No adnexal masses or tenderness. Clinical Pelvimetry: Pelvimetry clinically assessed as adequate Limited OB ultrasound exam: single intrauterine and positive cardiac activity SBIRT Marlon Granger was given the 4P's screening tool. [place] answered as follows: OB Opioid Screening - Last Recorded (since 09/30/2023) Did any of your parents have a problem with alcohol or other drug use? Yes Does your partner have a problem with alcohol or other drug use? No In the past, have you had difficulties in your life because of alcohol or other drugs, including prescription medications? No In the past month have you drunk any alcohol or used other drugs? No Are you taking medication for pain during the either prescribed or not? No Based on the screen and further questions, she is considered at Low risk due to:No past or current use. Positive reinforcement of current behavior. Plan to rescreen early third trimester. James Zamora APRN.CNPASSESSMENT: 29 year old at Unknown wks gestational age PLAN: 1) Patient oriented to practice. Patient given new OB orientation folder. Discussed nutrition, folic acid supplementation, dietary guidelines, exercise, smoking, alcohol, caffeine, and drug use. Discussed gestational weight gain guidelines. Discussed routine OB labs including STD/HIV. Discussed how to access Your guide to a health and the Employment Interviewer. Discussed hemoglobin electrophoresis. Patient: Accepts Patient has penicillin allergy, plan for allergy testing. Reviewed midwifery and film waxer services that are available. 2) Screening: Hemoglobin A1C: ordered Baby Aspirin: The patient has been counseled about the potential benefits of low dose aspirin in and our recommendation that this be offered to all patients, regardless of whether they meet the high risk criteria specified above. She Accepts Aneuploidy Screening: Discussed aneuploidy screening, nuchal translucency/first trimester early anatomy ultrasound and NIPT. The risks/benefits and limitations of NIPT/aneuploidy screening were reviewed including the potential for false negative and false positive results. The availability of genetic counseling was reviewed. Information on aneuploidy screening was provided. The patient chooses to proceed with First trimester early anatomy ultrasound (12-13w6d) Myriad Carrier Screening: Discussed myriad carrier screening. We discussed the availability of professional-society guided carrier screening and reviewed the conditions screened and limitations of screening. The availability of genetic counseling was reviewed. Information on carrier screening was provided. The patient is considering 3) Patient offered option of Virtual Visits. Patient unsure. May consider in future. ACTIVE PROBLEM LIST Encounter for Supervision of High Risk in First Trimester, Antepartum - 06/26/2024 Comment: Care Checklist Vaccines: [] Flu vaccine [] declined [] RSV vaccine 32 0/7 - 36 6/ (Jan - Jun) [] declined [] COVID vaccine [] declined [] TDaP 27-36 [] declined First trimester: [x] Dating US [] 1st tri labs [x] Pap smear [] Carrier screening - considering [] declined [] NIPT screening - considering [] declined [x] First trimester anatomy scan [] declined [x] universal ASA ordered (start 12w-16w) [] declined [] M Power Consult [] not indicated [] declined Second trimester: [] Anatomy scan [] Mode of Delivery - [] Feeding - [] Pump ordered [] Diabetes screen [] CBC, RPR [] Behavioral Health Screening Third trimester (28-30 weeks): [] Consent [] Contraception [] Senior Systems Engineer [] TeamBirth handout Third trimester (36-40 weeks): [] GBS [] Presentation - [] Scheduled [] yes - Hibiclens, pre-op instructions, CBC, TANDS ordered [] no [] HANDP Current With History of Pre-Term Labor in First Trimester - 06/26/2024 History of Delivery, Currently - 06/26/2024 Comment: June 26, 2024 2013 Presented at 6 cm at 35w3d and delivered vaginally. See op report in scanned documents. Consider cervical length measurement starting at 16 weeks. James Zamora APRN.CNP Penicillin Allergy - 06/26/2024 Comment: June 26, 2024 Consider Penicillin allergy consult. James Zamora APRN.CNP Vaginal Itching - 06/26/2024 Comment: June 26, 2024 Cultures obtained James Zamora APRN.CNP Follow up in 4 weeks or sooner prn. Plan for NT scan between 12w0d and 13w6d gestation. James Zamora APRN.CNP CNPN Observed: 06/19/2024 12:00 AM Status: COMPLETED Source: [facility] MARLON GRANGER ([id number]) 1995 F Date Time Provider Department 06/19/[address] [facility] During your visit today, we recorded the following information about you: Ghislaine Granados PA 06/19/2024 7:12 AM Signed Please call lab and have them do susceptibility testing. Jennifer Carpenter MA 06/19/2024 8:53 AM Signed Lab has been called and they are running the susceptibility. Jennifer Carpenter MA Allergies As of Date: 06/19/2024 Noted Allergy Reaction MONISTAT 1 (TIOCONAZOLE) 06/17/2024 5 - Intolerance Comments: Vaginal burning MOXIFLOXACIN 04/20/2024 5 - Intolerance Comments: Numbness PENICILLINS 06/07/2020 14 - Other: See Comments Date Reviewed: 06/17/2024 Reviewed by: Jennifer Carpenter MA - Fully Assessed Reason for Visit: Results [95] Prescriptions as of 06/19/2024 - clotrimazole (LOTRIMIN) 1 % vaginal cream Use 1 Applicatorful vaginally once daily for 7 days. Problem List As Of Date: 06/19/2024 (None) Encounter Status:Closed by JENNIFER CARPENTER on 06/19/24 CNPN Observed: 06/18/2024 12:00 AM Status: COMPLETED Source: [facility] Telephone ([facility]) MARLON GRANGER ([id number]) 1995 F Date Time Provider Department 06/18/24 GHISLAINE GRANADOS [facility] During your visit today, we recorded the following information about you: Ghislaine Granados PA 06/18/2024 7:17 AM Signed Please contact patient and let her know her yeast swab came back positive. It appears she has side effects with Monistat. I have sent clotrimazole topical to pharmacy to try instead. If she is unable to tolerate this, she needs to follow-up with her addictions recovery specialist. We are unable to do oral medication due to her being . Malachi Mitchell LPN 06/18/2024 9:20 AM Signed Pt reviewed her results on my chart 06/18 @6 am Malachi Mitchell LPN Allergies As of Date: 06/18/2024 Noted Allergy Reaction MONISTAT 1 (TIOCONAZOLE) 06/17/2024 5 - Intolerance Comments: Vaginal burning MOXIFLOXACIN 04/20/2024 5 - Intolerance Comments: Numbness PENICILLINS 06/07/2020 14 - Other: See Comments Date Reviewed: 06/17/2024 Reviewed by: Jennifer Carpenter MA - Fully Assessed Reason for Visit: Results [95] Order(s):clotrimazole (LOTRIMIN) 1 % vaginal creamUse 1 Applicatorful vaginally once daily for 7 days.Disp: 45 gRfl: 0 Prescriptions as of 06/18/2024 - clotrimazole (LOTRIMIN) 1 % vaginal cream Use 1 Applicatorful vaginally once daily for 7 days. Problem List As Of Date: 06/18/2024 (None) Prescriptions ordered this encounter Disp Refills Start End CLOTRIMAZOLE 1 % VAGINAL CREAM 45 g 0 06/18/2024 06/25/2024 Route: VAGINAL Sig: Use 1 Applicatorful vaginally once daily for 7 days. Encounter Status:Closed by MALACHI MITCHELL on 06/18/24 SELVIN Observed: 06/18/2024 12:00 AM Status: COMPLETED Source: [facility] Telephone (OB[facility]) MARLON GRANGER ([id number]) 1995 F Date Time Provider Department 06/18/24 JOSE VILLAFANA OBGYWLynnette During your visit today, we recorded the following information about you: Grisel Humphries, RN 06/18/2024 4:57 PM Signed Patient seen at [facility] yesterday. LMP 05/09. Approximately 5w5d. She was advised by her pharmacist to call our office regarding the Lotrisone cream in . Patient states this was sent in for a yeast infection. She did not know she was until she was seen yesterday. Please advise. Patient aware that with the office closing she won't hear back from us until tomorrow. CHICHO Mauricio Sara, MD 06/18/2024 5:19 PM Signed Typically recommend Monistat 7 in for yeast infection. Lotrisone cream has a steroid in it, and would not recommend using it unless she had a lot of inflammation on exam. Urgent care note just reported white vaginal discharge, so recommendation would be Monistat 7 and call if symptoms worsen or do not improve Kate Song RN 06/19/2024 9:03 AM Signed Patient notified and voiced understanding of below information. Patient states she is allergic to Monistat. Patient states she has increased swelling in vaginal area when she uses it. What do you suggest? CHICHO Starks Sara, MD 06/19/2024 10:09 AM Signed Monistat or Miconazole cream is the recommended treatment in . Oral Diflucan is an alterative but not recommended in due to possible risk. If symptoms are not bothersome for her, there is no increased risk to with a yeast infection, and could wait until 2nd trimester to do oral Diflucan. I am not familiar with this patient and have not evaluated her. Please schedule her for a problem visit or virtual visit to discuss this further thanks Kate Song RN 06/19/2024 10:29 AM Signed Patient notified and voiced understanding of below. Patient states she is going to try the Monistat 7. Kate Song RN Allergies As of Date: 06/18/2024 Noted Allergy Reaction MONISTAT 1 (TIOCONAZOLE) 06/17/2024 5 - Intolerance Comments: Vaginal burning MOXIFLOXACIN 04/20/2024 5 - Intolerance Comments: Numbness PENICILLINS 06/07/2020 14 - Other: See Comments Date Reviewed: 06/17/2024 Reviewed by: Jennifer Carpenter MA - Fully Assessed Reason for Visit: Patient Question [8207] Prescriptions as of 06/19/2024 - clotrimazole (LOTRIMIN) 1 % vaginal cream Use 1 Applicatorful vaginally once daily for 7 days. Problem List As Of Date: 06/18/2024 (None) Encounter Status:Closed by KATE SONG on 06/19/24 BACTERIA UR CULT Observed: 06/17/2024 4:32 PM Status: C Source: [facility] CULTURE, URINE: Mixed microbiota, including predominantly: ORGANISM ID: 1 10,000 -<50,000 CFU/ml Streptococcus agalactiae (group b streptococcus) Additional susceptibility testing performed by request. ORGANISM ID: 1 (STREPTOCOCCUS AGALACTIAE (GROUP B STREPTOCOCCUS)) ----- ----- ANTIBIOTIC INTERPRETATION ABDIAS STATUS REFERENCE RANGE ----- ----- Penicillin G S 0.06 F Susceptible <=0.125 , Nonsusceptible >.125 Ceftriaxone S <=0.12 F Susceptible <=0.5 , Nonsusceptible >.5 Vancomycin S <=0.50 F Susceptible <=1 , Nonsusceptible >1 Performed By: #### 630-4 ### # [facility] CLIA [id number] [address] [place], [place] [address] [address] [place] C TRACH+GC DNA SPEC QL RC+PROBE Collected: 06/17/2024 4:32 PM Status: F Source: [facility] Order Comment: Specimen Type : SWAB Ordering Facility: [facility] Address: [address] [place] [address] TYPE CODE TESTS RESULT OUT OF RANGE REFERENCE UNITS LAB 43264-4(LOINC) N gonorrhoea rRNA Spec Ql RC+probe Not detected Not detected LAB 58312-9([facility]) C trach rRNA Spec Ql RC+probe Not detected Not detected Performed By: #### 59787-9, BVAMP #### [facility] CLIA [id number] [address] [place] [address] [place] BACTERIAL VAGINOSIS NAAT Collected: 09/2024 4:32 PM Status: F Source: [facility] Order Comment: Specimen Type : SWAB Ordering Facility: [facility] Address: [address] [place] [address] TYPE CODE TESTS RESULT OUT OF RANGE REFERENCE UNITS LAB 95120-9([facility]) BV bacteria rRNA Vag Ql RC+probe Not detected Not detected Performed By: #### 68643-3, BVAMP #### [facility] CLIA [id number] [address] [place] [address] [place] SHANNAN/TRICHOMONAS NAAT Collected: 09/2024 4:32 PM Status: F Source: [facility] Order Comment: Specimen Type : SWAB Ordering Facility: [facility] Address: [address] [place] [address] TYPE CODE TESTS RESULT OUT OF RANGE REFERENCE UNITS LAB 75271-4([facility] ) Shannan DNA Vag Ql RC+probe Detected Abnormal Not detected Result Comment: The Shannan species group target includes C. albicans, C. tropicalis, C. parapsilosis, and C. dubliniensis. LAB 83056-2([facility] ) C glabrata RNA Vag Ql RC+probe Not detected Not detected LAB 23955-8([facility] ) T vaginalis DNA Spec Ql RC+probe Not detected Not detected Performed By: #### CVTV #### [facility] CLIA [id number] [address] [place] [address] [place] PROGRESS Observed: 06/17/2024 3:46 PM Status: COMPLETED Source: [facility] HNO ID: [id number] Author: JOANN MARIE APRN.MARKET RISK ANALYST Service: ? Author Type: Nurse Practitioner Type: Progress Notes Filed: 06/17/2024 16:13 Note Text: CC: Patient presents with: Vaginal Discharge: Possible yeast infection, itching Did have treatment for yeast infection but symptoms did not clear up HPI [place] Tata Granger is a 29 year old female who presents with complaint of possible UTI. These symptoms have been present for several days. Associated symptoms: itching, abnormal vaginal discharge and pain during sex Denies: pressure, fever, chills, sweats, abdominal pain, and flank pain Treatments: nothing The ROS was otherwise negative. PMH, Medications, labs, allergies, and recent past visits with PCP were reviewed and updated as able. PHYSICAL EXAM: BP 100/68 Pulse 118 Temp 36.8 ?C (98.3 ?F) Resp 21 Wt 54.9 kg (121 lb 0.5 oz) LMP 04/07/2024 (Approximate) SpO2 99% General: Well appearing and alert CV: Regular rate and rhythm without obvious murmur Lungs: clear to auscultation bilaterally Back: straight and symmetric Abdomen: soft, nontender, nondistended Vaginal discharge noted, white in color. Inspector Cold Working present. PAST MEDICAL HISTORY Diagnosis Date NEGATIVE MEDICAL HISTORY PAST SURGICAL HISTORY Procedure Laterality Date L'SCOPE DX W/WO BRUSHINGS/WASHINGS ALLERGIES Moxifloxacin and Penicillins MEDICATIONS No prescriptions on file. FAMILY HISTORY Problem Relation Age of Onset Kidney failure Mother Diabetes Father Drug abuse Father Cervical Cancer Maternal Grandmother Cancer Maternal Grandfather Social History Tobacco Use Smoking status: Every Day Types: Cigarettes Smokeless tobacco: Never Vaping Use Vaping status: Never Used Substance Use Topics Alcohol use: Yes Comment: social Drug use: Never ASSESSMENT/PLAN: 1. Vaginal discharge - ICD9: 623.5, ICD10: N89.8 (primary diagnosis) - BACTERIAL VAGINOSIS NAAT - SHANNAN/TRICHOMONAS NAAT - GONORRHEA/CHLAMYDIA NAAT - UA DIP, URINE (POC) - BACTERIAL CULTURE, URINE 2. Missed menses - ICD9: 626.4, ICD10: N92.6 - HCG QUAL UR B/O - pos was instructed to get set up with SECURITY SUPPORT ANALYST Participation of a fellow, resident, medical student, or advanced practice provider student in performing the sensitive examination was discussed with the patient or authorized computer help desk representative. The patient or authorized computer help desk representative has agreed to proceed with the sensitive examination. (Sensitive examination includes inspection and/or palpation of the breasts, pelvis, prostate and anorectal regions) Prescription instructions reviewed with patient as applicable. Potential red flag symptoms discussed with the patient. Reviewed appropriate action plan to take if red flag symptoms occur. Patient agreeable to treatment plan. Joann Marie APRN.COLLEEN CNOV Observed: 06/17/2024 3:45 PM Status: COMPLETED Source: [facility] Office Visit (UCWSTR) ELKINMARLON Payton Louie ([id number]) 1995 F Date Time Provider Department 06/17/24 3:45 PM WENDY MAYORGA [facility] During your visit today, we recorded the following information about you: Temperature Pulse Respiration Blood pressure 98.3 degrees 118/minute 21/minute 100/68 Weight 54.9 kg Joann Marie APRN.COLLEEN 06/17/2024 4:13 PM Addendum CC: Patient presents with: Vaginal Discharge: Possible yeast infection, itching Did have treatment for yeast infection but symptoms did not clear up HPI Marlon Palma Elkin is a 29 year old female who presents with complaint of possible UTI. These symptoms have been present for several days. Associated symptoms: itching, abnormal vaginal discharge and pain during sex Denies: pressure, fever, chills, sweats, abdominal pain, and flank pain Treatments: nothing The ROS was otherwise negative. PMH, Medications, labs, allergies, and recent past visits with PCP were reviewed and updated as able. PHYSICAL EXAM: BP 100/68 Pulse 118 Temp 36.8 ?C (98.3 ?F) Resp 21 Wt 54.9 kg (121 lb 0.5 oz) LMP 04/07/2024 (Approximate) SpO2 99% General: Well appearing and alert CV: Regular rate and rhythm without obvious murmur Lungs: clear to auscultation bilaterally Back: straight and symmetric Abdomen: soft, nontender, nondistended Vaginal discharge noted, white in color. Inspector Cold Working present. PAST MEDICAL HISTORY Diagnosis Date NEGATIVE MEDICAL HISTORY PAST SURGICAL HISTORY Procedure Laterality Date L'SCOPE DX W/WO BRUSHINGS/WASHINGS ALLERGIES Moxifloxacin and Penicillins MEDICATIONS No prescriptions on file. FAMILY HISTORY Problem Relation Age of Onset Kidney failure Mother Diabetes Father Drug abuse Father Cervical Cancer Maternal Grandmother Cancer Maternal Grandfather Social History Tobacco Use Smoking status: Every Day Types: Cigarettes Smokeless tobacco: Never Vaping Use Vaping status: Never Used Substance Use Topics Alcohol use: Yes Comment: social Drug use: Never ASSESSMENT/PLAN: 1. Vaginal discharge - ICD9: 623.5, ICD10: N89.8 (primary diagnosis) - BACTERIAL VAGINOSIS NAAT - SHANNAN/TRICHOMONAS NAAT - GONORRHEA/CHLAMYDIA NAAT - UA DIP, URINE (POC) - BACTERIAL CULTURE, URINE 2. Missed menses - ICD9: 626.4, ICD10: N92.6 - HCG QUAL UR B/O - pos was instructed to get set up with SECURITY SUPPORT ANALYST Participation of a fellow, resident, medical student, or advanced practice provider student in performing the sensitive examination was discussed with the patient or authorized computer help desk representative. The patient or authorized computer help desk representative has agreed to proceed with the sensitive examination. (Sensitive examination includes inspection and/or palpation of the breasts, pelvis, prostate and anorectal regions) Prescription instructions reviewed with patient as applicable. Potential red flag symptoms discussed with the patient. Reviewed appropriate action plan to take if red flag symptoms occur. Patient agreeable to treatment plan. Joann Marie APRN.Joann Montenegro APRN.CNP 06/17/2024 4:13 PM Signed Addended by: JOANN MARIE on: 06/17/2024 04:13 PM Modules accepted: Orders Allergies As of Date: 06/17/2024 Noted Allergy Reaction MONISTAT 1 (TIOCONAZOLE) 06/17/2024 5 - Intolerance Comments: Vaginal burning MOXIFLOXACIN 04/20/2024 5 - Intolerance Comments: Numbness PENICILLINS 06/07/2020 14 - Other: See Comments Date Reviewed: 06/17/2024 Reviewed by: Jennifer Carpenter MA - Fully Assessed Reason for Visit: Vaginal Discharge [4161] Cmt: Possible yeast infection, itching Primary Visit Diagnosis:Vaginal discharge [N89.8] Other Visit Diagnosis:Missed menses [N92.6] Order(s):BACTERIAL VAGINOSIS NAAT [SQBVAMP] Order #: [id number]. #:[id number] SHANNAN/TRICHOMONAS NAAT [SQCVTV] Order #: [id number]. #:[id number] GONORRHEA/CHLAMYDIA NAAT [SQGCCT] Order #: [id number]. #:[id number] UA DIP, URINE (POC) [[id number]] Order #: [id number]. #:[id number] BACTERIAL CULTURE, URINE [SQURCUL] Order #: [id number]. #:[id number] HCG QUAL UR B/O [[id number]] Order #: [id number] UA DIP,URINE HCG (POC) [[id number]] Order #: [id number]. #:[id number] BACTERIAL CULTURE, URINE [SQURCUL] Order #: [id number]. #:[id number] Problem List As Of Date: 06/17/2024 (None) Encounter Status:Closed by JOANN MARIE on 06/17/24 BACTERIAL VAGINOSIS NAAT Collected: 9:38 AM Status: F Source: [facility] Order Comment: Specimen Type : SWAB Ordering Facility: [facility] Address: [address] [place] [address] TYPE CODE TESTS RESULT OUT OF RANGE REFERENCE UNITS LAB 38213-9(LOINC) BV bacteria rRNA Vag Ql RC+probe Not detected Not detected Performed By: #### CVTV, BVA MP #### [facility] CLIA [id number] [address] [place], [place] [address] [address] STATES OF [facility] SHANNAN/TRICHOMONAS NAAT Collected: 9:38 AM Status: F Source: [facility] Order Comment: Specimen Type : SWAB Ordering Facility: [facility] Address: [address] [place] [address] TYPE CODE TESTS RESULT OUT OF RANGE REFERENCE UNITS LAB 62097-7(LOINC ) Shannan DNA Vag Ql RC+probe Detected Abnormal Not detected Result Comment: The Shannan species group target includes C. albicans, C. tropicalis, C. parapsilosis, and C. dubliniensis. LAB 90658-6([facility] ) C glabrata RNA Vag Ql RC+probe Not detected Not detected LAB 21259-3([facility] ) T vaginalis DNA Spec Ql RC+probe Not detected Not detected Performed By: #### CVTV, BVA MP #### [facility] CLIA [id number] [address] [place] [address] [facility] UROGENITAL UREAPLASMA AND MYCOPLASMA SPECIES BY PCR, FOR GENITAL, RECTAL, URINE SAMPLES Collected: 05/07/2024 9:38 AM Status: F Source: [facility] Order Comment: Specimen Type : SWAB Ordering Facility: [facility] Address: [address] [place] [address] TYPE CODE TESTS RESULT OUT OF RANGE REFERENCE UNITS LAB URMYPS UR/MYCO SOURCE Genital LAB URPPCR UR PARVUM PCR Not Detected LAB URUPCR UR UREALYTICUM PCR Not Detected LAB MYHPCR MYCOPLAS HOMINIS PCR Not Detected LAB MGEPCR M GENITALIUM PCR Not Detected Result Comment: INTERPRETIVE INFORMATION: Urogenital Ureaplasma and Mycoplasma Species by PCR A negative result does not rule out the presence of PCR inhibitors in the patient specimen or test-specific nucleic acid in concentrations below the level of detection by this test. This test was developed and its performance characteristics determined by [facility]. It has not been cleared or approved by the [place] Food and Drug Administration. This test was performed in a CLIA certified laboratory and is intended for clinical purposes. Performed By: [facility] [address] [place] [address] Anatomic Pathology Assistant: Srinivasa Floyd MD, PhD CLIA Number: [id number] Performed By: #### URMPCR ## ## [facility] CLIA [id number] [address] [place] [address] CNOV Observed: 05/07/2024 9:15 AM Status: COMPLETED Source: [facility] Office Visit (OBGYWM) MARLON GRNAGER ([id number]) 1995 F Date Time Provider Department 05/07/24 9:15 AM JAMES ZAMORA During your visit today, we recorded the following information about you: Blood pressure Weight Last Period 118/74 55.1 kg 04/07/24 James Zamora APRN.MARKET RISK ANALYST 05/07/2024 9:43 AM Signed Patient declined development disability specialist. Marlon Granger is a 29 year old female who presents for problem visit vaginal irritation and discharge for 2 week(s). HPI: Marlon is here for irritation and discharge. Thinks she may have a yeast infection. Took Diflucan 2 days ago and symptoms improved, but still having some itching. She reports that she had thick white clumpy discharge a couple of days ago that has now resolved. 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 She is concerned that she may still be positive for ureaplasma and would like tested today. 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 History Comments: Sexual Activity: Yes; Male Contraception: Not used PAST MEDICAL HISTORY Diagnosis Date NEGATIVE MEDICAL HISTORY PAST SURGICAL HISTORY Procedure Laterality Date L'SCOPE DX W/WO BRUSHINGS/WASHINGS FAMILY HISTORY Problem Relation Age of Onset Kidney failure Mother Diabetes Father Drug abuse Father Cervical Cancer Maternal Grandmother Cancer Maternal Grandfather Social History Tobacco Use Smoking status: Every Day Types: Cigarettes Smokeless tobacco: Never Vaping Use Vaping status: Never Used Substance Use Topics Alcohol use: Yes Comment: social Drug use: Never Current Outpatient Medications Medication Sig metroNIDAZOLE (METROGEL) 0.75 % (37.5mg/5 gram) Vaginal Gel Use 1 Applicatorful vaginally two times a week. After finishing Clindamycin treatment. No current facility-administered medications for this visit. Allergies As of Date: 05/07/2024 Allergen Noted Reaction MOXIFLOXACIN 04/20/2024 Intolerance PENICILLINS 06/07/2020 Other: See Comments Fully Assessed 04/03/2024 REVIEW OF SYSTEMS Expanded ROS: SECURITY SUPPORT ANALYST: + vaginal itching, discharge Allergies and current medication updated:Yes SENSITIVE EXAM: The sensitive examination was discussed with the Patient or Patient's Authorized Well Digger. As applicable, any other physician, advance practice provider, medical student, or other health professional student that will be observing or involved in the sensitive examination for educational or training purposes was discussed with the Patient or Authorized Well Digger. The Patient or Authorized Well Digger has agreed to proceed with the sensitive examination. (Sensitive examination includes inspection and/or palpation of the breasts, pelvis, prostate and anorectal regions). EXAM: BP 118/74 Wt 121 lb 6.4 oz (55.1kg) LMP 04/07/2024 GENERAL: pleasant, female in no apparent distress HEENT: Normocephalic, atraumatic, mucus membranes moist, and no lesions CHEST: Normal inspiratory effort PELVIC: external genitalia normal, normal Bartholin's glands, urethra, Salado's glands, no vulvar lesions, no cervical lesions, good vaginal support, physiologic discharge present, normal appearing perineal body and perianal region BIMANUAL: uterus normal size, shape and consistency, no adnexal masses, and non-tender NEURO: alert and oriented x3,exam grossly non-focal EXTREMITIES: normal ASSESSMENT AND PLAN: 1. Vaginal itching - ICD9: 698.1, ICD10: N89.8 (primary diagnosis) - Rx for Diflucan sent for continued itching - Mycoplasma/ureaplasma culture sent per patient request 2. Vaginal discharge - ICD9: 623.5, ICD10: N89.8 - Resolving - Cultures sent, although risk of false negative with recent Diflucan use - Start women's health probiotic RTO for annual or sooner as needed. James Zamora APRN.MARKET RISK ANALYST Medical Decision Making: Problems: Low: Acute, uncomplicated illness or injury Data: Unique test(s) ordered: 3+ Risk: Low: Low risk from testing/treatment Moderate: Drug management Medical Decision Making Level: 4 - Moderate Allergies As of Date: 05/07/2024 Noted Allergy Reaction MOXIFLOXACIN 04/20/2024 5 - Intolerance Comments: Numbness PENICILLINS 06/07/2020 14 - Other: See Comments Date Reviewed: 05/07/2024 Reviewed by: James Zamora APRN.MARKET RISK ANALYST - Fully Assessed Reason for Visit: Problem Visit [Other] Primary Visit Diagnosis:Vaginal itching [N89.8] Other Visit Diagnosis:Vaginal discharge [N89.8] Order(s):SHANNAN/TRICHOMONAS NAAT [SQCVTV] Order #: [id number]. #:[id number] BACTERIAL VAGINOSIS NAAT [SQBVAMP] Order #: [id number]. #:[id number] fluconazole (DIFLUCAN) 150 mg tabletTake 1 tablet by mouth one time only for 1 dose.Disp: 1 tabletRfl: 0 UROGENITAL UREAPLASMA AND MYCOPLASMA SPECIES BY PCR, FOR GENITAL, RECTAL, URINE SAMPLES [SQURMPCR] Order #: [id number]. #:[id number] Prescriptions as of 05/07/2024 - fluconazole (DIFLUCAN) 150 mg tablet Take 1 tablet by mouth one time only for 1 dose. Problem List As Of Date: 05/07/2024 (None) Prescriptions ordered this encounter Disp Refills Start End FLUCONAZOLE 150 MG TABLET 1 ta* 0 05/07/2024 05/07/2024 Route: ORAL Sig: Take 1 tablet by mouth one time only for 1 dose. Medications Discontinued During This Encounter Prescriptions - metroNIDAZOLE (METROGEL) 0.75 % (37.5mg/5 gram) Vaginal Gel (Discontinued) Reported on 05/07/2024 Encounter Status:Closed by JAMES ZAMORA on 05/07/24 PROGRESS Observed: 05/07/2024 8:59 AM Status: COMPLETED Source: [facility] HNO ID: [id number] Author: JAMES ZAMORA APRN.MARKET RISK ANALYST Service: ? Author Type: Nurse Practitioner Type: Progress Notes Filed: 05/07/2024 09:43 Note Text: Patient declined development disability specialist. Marlon Granger is a 29 year old female who presents for problem visit vaginal irritation and discharge for 2 week(s). HPI: Marlon is here for irritation and discharge. Thinks she may have a yeast infection. Took Diflucan 2 days ago and symptoms improved, but still having some itching. She reports that she had thick white clumpy discharge a couple of days ago that has now resolved. 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 She is concerned that she may still be positive for ureaplasma and would like tested today. 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 History Comments: Sexual Activity: Yes; Male Contraception: Not used PAST MEDICAL HISTORY Diagnosis Date NEGATIVE MEDICAL HISTORY PAST SURGICAL HISTORY Procedure Laterality Date L'SCOPE DX W/WO BRUSHINGS/WASHINGS FAMILY HISTORY Problem Relation Age of Onset Kidney failure Mother Diabetes Father Drug abuse Father Cervical Cancer Maternal Grandmother Cancer Maternal Grandfather Social History Tobacco Use Smoking status: Every Day Types: Cigarettes Smokeless tobacco: Never Vaping Use Vaping status: Never Used Substance Use Topics Alcohol use: Yes Comment: social Drug use: Never Current Outpatient Medications Medication Sig metroNIDAZOLE (METROGEL) 0.75 % (37.5mg/5 gram) Vaginal Gel Use 1 Applicatorful vaginally two times a week. After finishing Clindamycin treatment. No current facility-administered medications for this visit. Allergies As of Date: 05/07/2024 Allergen Noted Reaction MOXIFLOXACIN 04/20/2024 Intolerance PENICILLINS 06/07/2020 Other: See Comments Fully Assessed 04/03/2024 REVIEW OF SYSTEMS Expanded ROS: SECURITY SUPPORT ANALYST: + vaginal itching, discharge Allergies and current medication updated:Yes SENSITIVE EXAM: The sensitive examination was discussed with the Patient or Patient's Authorized Well Digger. As applicable, any other physician, advance practice provider, medical student, or other health professional student that will be observing or involved in the sensitive examination for educational or training purposes was discussed with the Patient or Authorized Well Digger. The Patient or Authorized Well Digger has agreed to proceed with the sensitive examination. (Sensitive examination includes inspection and/or palpation of the breasts, pelvis, prostate and anorectal regions). EXAM: BP 118/74 Wt 121 lb 6.4 oz (55.1kg) LMP 04/07/2024 GENERAL: pleasant, female in no apparent distress HEENT: Normocephalic, atraumatic, mucus membranes moist, and no lesions CHEST: Normal inspiratory effort PELVIC: external genitalia normal, normal Bartholin's glands, urethra, Salado's glands, no vulvar lesions, no cervical lesions, good vaginal support, physiologic discharge present, normal appearing perineal body and perianal region BIMANUAL: uterus normal size, shape and consistency, no adnexal masses, and non-tender NEURO: alert and oriented x3,exam grossly non-focal EXTREMITIES: normal ASSESSMENT AND PLAN: 1. Vaginal itching - ICD9: 698.1, ICD10: N89.8 (primary diagnosis) - Rx for Diflucan sent for continued itching - Mycoplasma/ureaplasma culture sent per patient request 2. Vaginal discharge - ICD9: 623.5, ICD10: N89.8 - Resolving - Cultures sent, although risk of false negative with recent Diflucan use - Start women's health [facility] RTO for annual or sooner as needed. James Zamora APRN.MARKET RISK ANALYST Medical Decision Making: Problems: Low: Acute, uncomplicated illness or injury Data: Unique test(s) ordered: 3+ Risk: Low: Low risk from testing/treatment Moderate: Drug management Medical Decision Making Level: 4 - Moderate COLLEENN Observed: 04/20/2024 12:00 AM Status: COMPLETED Source: [facility] Telephone (OBMgvWM) MARLON GRANGER ([id number]) 1995 F Date Time Provider Department 04/20/24 JAMES ZAMORA During your visit today, we recorded the following information about you: Nancy Harris, CHICHO 04/20/2024 10:35 AM Signed Patient calling regarding symptoms she had since starting Moxifloxacin. She took her 2nd dose of it and then experienced what felt like numbness over entire body. [place] like she couldn't move and felt like she was in a daze. Feeling slightly better right now. 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 She doesn't know if she was so exhausted that it made her feel that way or if could be related to the medication? Advised if she is still feeling numb she needs to go to ER or call PCP. Please advise. CHICHO Osuna Emily, APRN.CNP 04/20/2024 10:49 AM Signed D/C Moxifloxacin. Take Azithromycin 1 g orally x 1. Then 500 mg orally once daily for 3 days. James Zamora APRN.Nancy Suárez RN 04/20/2024 11:04 AM Signed Patient notified. Nancy Harris RN The following approved medication requests have been transmitted electronically. Requested Prescriptions Signed Prescriptions Disp Refills azithromycin (ZITHROMAX) 500 mg tablet 2 tablet 0 Sig: Take 2 tablets by mouth one time only for 1 dose. Authorizing Provider: JAMES ZAMORA azithromycin (ZITHROMAX) 500 mg tablet 3 tablet 0 Sig: Take 1 tablet by mouth once daily for 3 days. Authorizing Provider: JAMES ZAMORA Pharmacy Information Pharmacy Address Telephone [address] [address] Allergies As of Date: 04/20/2024 Noted Allergy Reaction MOXIFLOXACIN 04/20/2024 5 - Intolerance Comments: Numbness PENICILLINS 06/07/2020 14 - Other: See Comments Date Reviewed: 04/03/2024 Reviewed by: James Zamora APRN.CNP - Fully Assessed Reason for Visit: Patient Update [1234] Order(s):azithromycin (ZITHROMAX) 500 mg tabletTake 2 tablets by mouth one time only for 1 dose.Disp: 2 tabletRfl: 0 azithromycin (ZITHROMAX) 500 mg tabletTake 1 tablet by mouth once daily for 3 days.Disp: 3 tabletRfl: 0 Prescriptions as of 04/20/2024 - azithromycin (ZITHROMAX) 500 mg tablet Take 2 tablets by mouth one time only for 1 dose. - azithromycin (ZITHROMAX) 500 mg tablet Take 1 tablet by mouth once daily for 3 days. - metroNIDAZOLE (METROGEL) 0.75 % (37.5mg/5 gram) Vaginal Gel Use 1 Applicatorful vaginally two times a week. After finishing Clindamycin treatment. Problem List As Of Date: 04/20/2024 (None) Prescriptions ordered this encounter Disp Refills Start End AZITHROMYCIN 500 MG TABLET 2 ta* 0 04/20/2024 04/20/2024 Route: ORAL Sig: Take 2 tablets by mouth one time only for 1 dose. AZITHROMYCIN 500 MG TABLET 3 ta* 0 04/20/2024 04/23/2024 Route: ORAL Sig: Take 1 tablet by mouth once daily for 3 days. Encounter Status:Closed by NANCY HARRIS on 04/20/24 COLLEENN Observed: 04/08/2024 12:00 AM Status: COMPLETED Source: [facility] Telephone (WeBRANDWM) MARLON GRANGER ([id number]) 1995 F Date Time Provider Department 04/08/24 JAMES ZAMORA During your visit today, we recorded the following information about you: Jailyn Trotter RN 04/08/2024 3:58 PM Signed Reviewed with patient as [employer] message was not viewed. Pt voiced understanding. Jailyn Trotter RN Allergies As of Date: 04/08/2024 Noted Allergy Reaction PENICILLINS 06/07/2020 14 - Other: See Comments Date Reviewed: 04/03/2024 Reviewed by: James Zamora APRN.MARKET RISK ANALYST - Fully Assessed Reason for Visit: Results [95] Order(s):moxifloxacin (AVELOX) 400 mg tabletTake 1 tablet by mouth once daily for 7 days.Disp: 7 tabletRfl: 0 doxycycline (VIBRA-TABS) 100 mg tabletTake 1 tablet by mouth two times a day for 7 days.Disp: 14 tabletRfl: 0 Prescriptions as of 04/08/2024 - moxifloxacin (AVELOX) 400 mg tablet Take 1 tablet by mouth once daily for 7 days. - doxycycline (VIBRA-TABS) 100 mg tablet Take 1 tablet by mouth two times a day for 7 days. - clindamycin phosphate (CLEOCIN) 2 % vaginal cream Use 1 Applicatorful vaginally daily at bedtime for 7 days. - metroNIDAZOLE (METROGEL) 0.75 % (37.5mg/5 gram) Vaginal Gel Use 1 Applicatorful vaginally two times a week. After finishing Clindamycin treatment. Problem List As Of Date: 04/08/2024 (None) Prescriptions ordered this encounter Disp Refills Start End MOXIFLOXACIN 400 MG TABLET 7 ta* 0 04/08/2024 04/15/2024 Route: ORAL Sig: Take 1 tablet by mouth once daily for 7 days. DOXYCYCLINE HYCLATE 100 MG TABLET 14 t* 0 04/08/2024 04/15/2024 Route: ORAL Sig: Take 1 tablet by mouth two times a day for 7 days. Encounter Status:Closed by JAILYN TROTTER on 04/08/24 BACTERIA UR CULT Observed: 04/03/2024 2:46 PM Status: F Source: [facility] ORGANISM ID: 1 10,000 -<50,000 CFU/ml Normal urogenital kelvin Performed By: #### 630-4 ### # [facility] CLIA [id number] [address] [place], [place] [address] [address] [place] [address] [facility] UROGENITAL UREAPLASMA AND MYCOPLASMA SPECIES BY PCR, FOR GENITAL, RECTAL, URINE SAMPLES Collected: 04/03/2024 8:17 AM Status: F Source: [facility] Order Comment: Specimen Type : SWAB Ordering Facility: [facility] Address: [address] [place] [address] TYPE CODE TESTS RESULT OUT OF RANGE REFERENCE UNITS LAB URMYPS UR/MYCO SOURCE Genital LAB URPPCR UR PARVUM PCR Not Detected LAB URUPCR UR UREALYTICUM PCR Detected Abnormal LAB MYHPCR MYCOPLAS HOMINIS PCR Not Detected LAB MGEPCR M GENITALIUM PCR Not Detected Result Comment: INTERPRETIVE INFORMATION: Urogenital Ureaplasma and Mycoplasma Species by PCR A negative result does not rule out the presence of PCR inhibitors in the patient specimen or test-specific nucleic acid in concentrations below the level of detection by this test. This test was developed and its performance characteristics determined by [employer]. It has not been cleared or approved by the [place] Food and Drug Administration. This test was performed in a CLIA certified laboratory and is intended for clinical purposes. Performed By: [facility] [address] [place] [address] Anatomic Pathology Assistant: Srinivasa Floyd MD, PhD CLIA Number: [id number] Performed By: #### URMP ## ## [facility] CLIA [id number] [address] [place] [address] BACTERIAL VAGINOSIS NAAT Collected: 8:17 AM Status: F Source: [facility] Comment: Specimen Type : SWAB Ordering Facility: [facility] Address: [address] [place] [address] TYPE CODE TESTS RESULT OUT OF RANGE REFERENCE UNITS LAB 19881-8(INC) BV bacteria rRNA Vag Ql RC+probe Not detected Not detected Performed By: #### BVAMP, 36 902-5 #### [facility] CLIA [id number] [address] [place] [address] [place] C TRACH+GC DNA SPEC QL RC+PROBE Collected: 04/03/2024 8:17 AM Status: F Source: [facility] Comment: Specimen Type : SWAB Ordering Facility: [facility] Address: [address] [place] [address] TYPE CODE TESTS RESULT OUT OF RANGE REFERENCE UNITS LAB 22225-3(LOINC) N gonorrhoea rRNA Spec Ql RC+probe Not detected Not detected LAB 29507-3(LOINC) C trach rRNA Spec Ql RC+probe Not detected Not detected Performed By: #### BVAMP, 36 902-5 #### [facility] CLIA [id number] [address] [place] [address] [place] SHANNAN/TRICHOMONAS NAAT Collected: 8:17 AM Status: F Source: [facility] Comment: Specimen Type : SWAB Ordering Facility: [facility] Address: [address] [place] [address] TYPE CODE TESTS RESULT OUT OF RANGE REFERENCE UNITS LAB 12662-6([facility] ) Shannan DNA Vag Ql RC+probe Not detected Not detected Result Comment: The Shannan species group target includes C. albicans, C. tropicalis, C. parapsilosis, and C. dubliniensis. LAB 13052-3(LOINC ) C glabrata RNA Vag Ql RC+probe Not detected Not detected LAB 38648-4(LOINC ) T vaginalis DNA Spec Ql RC+probe Not detected Not detected Performed By: #### CVTV #### [facility] CLIA [id number] [address] [facility] [address] [place] Observed: 04/03/2024 7:45 AM Status: COMPLETED Source: [facility] Office Visit (OBGYWM) MARLON GRANGER ([id number]) 1995 F Date Time Provider Department 04/03/24 7:45 AM JAMES ZAMORA During your visit today, we recorded the following information about you: Blood pressure Weight Last Period 110/62 54.4 kg 03/04/24 James Zamora APRN.[facility] 04/03/2024 8:16 AM Addendum Marlon Palma Elkin is a 29 year old female who presents for problem visit of recurrent bacterial vaginosis. HPI: Marlon has been positive for BV several times in the last year -- 01/27/24 10/25/23 08/10/23 + yeast 02/19/23, 02/14/24 + chlamydia 08/14/22 She is typically treated with Flagyl for the BV. She was most recently sent vaginal clindamycin on 02/14/24. Symptoms improve after treatment. Used to take a women's health probiotic, which helped, but has not been able to find the brand that was helpful. Notes BV symptoms the most around her period -- vaginal odor, sometimes discharge. Using pads - states they are organic. Noticed these symptoms started with this type of pad use. Uses Dial soap and Dove sensitive. OB History No obstetric history on file. 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 No past surgical history on file. No family history on file. Social History Tobacco Use Smoking status: Every Day Types: Cigarettes Smokeless tobacco: Never Substance Use Topics Alcohol use: Yes Comment: social Drug use: Never Current Outpatient Medications Medication Sig ACIDOPHILUS cap (Patient not taking: Reported on 11/19/2022) No current facility-administered medications for this visit. Allergies As of Date: 04/03/2024 Allergen Noted Reaction PENICILLINS 06/07/2020 Other: See Comments Fully Assessed 02/14/2024 REVIEW OF SYSTEMS Expanded ROS: SECURITY SUPPORT ANALYST: + reoccurring BV Allergies and current medication updated:Yes SENSITIVE EXAM: The sensitive examination was discussed with the Patient or Patient's Authorized Well Digger. As applicable, any other physician, advance practice provider, medical student, or other health professional student that will be observing or involved in the sensitive examination for educational or training purposes was discussed with the Patient or Authorized Well Digger. The Patient or Authorized Well Digger has agreed to proceed with the sensitive examination. (Sensitive examination includes inspection and/or palpation of the breasts, pelvis, prostate and anorectal regions). EXAM: BP 110/62 Wt 120 lb (54.4kg) LMP 03/04/2024 GENERAL: pleasant, female in no apparent distress HEENT: Normocephalic, atraumatic, mucus membranes moist, and no lesions CHEST: Normal inspiratory effort PELVIC: external genitalia normal, normal Bartholin's glands, urethra, Salado's glands, no vulvar lesions, no cervical lesions, good vaginal support, + white discharge, normal appearing perineal body and perianal region BIMANUAL: uterus normal size, shape and consistency, no adnexal masses, and non-tender NEURO: alert and oriented x3,exam grossly non-focal EXTREMITIES: normal ASSESSMENT AND PLAN: 1. Bacterial vaginosis - ICD9: 616.10, 041.9, ICD10: N76.0, B96.89 - Reports oral flagyl has caused oral thrush for her - Requests clindamycin for induction treatment - Recommend follow up with maintenance therapy of Flagyl gel twice a week - Start Women's Health probiotic. Recommend Clarivee through [facility] - Rx for Diflucan sent for yeast prophylaxis - Trial different brand of pads - Use Dove Sensitive soap only instead of Dial Vaginal discharge - ICD9: 623.5, ICD10: N89.8 Urinary frequency - ICD9: 788.41, ICD10: R35.0 - URINE CULTURE - UROGENITAL UREAPLASMA AND MYCOPLASMA SPECIES BY PCR, FOR GENITAL, RECTAL, URINE SAMPLES RTO for annual or sooner as needed. James Zamora APRN.COLLEEN Medical Decision Making: Problems: Low: Stable chronic illness Data: Unique test result(s) reviewed: 3+ Unique test(s) ordered: 3+ Risk: Low: Low risk from testing/treatment Moderate: Drug management Medical Decision Making Level: 4 - Moderate James Zamora APRN.CNP 04/03/2024 7:59 AM Signed *Revaree is a [facility] recommended, leading selling vaginal insert for the relief of symptoms of vaginal atrophy and the buddhism of the vagina's epithelial lining and pH -- hormone free. In [id number] clinical trials, Revaree performed as well as estrogen creams in reducing symptoms of vaginal atrophy (dryness, itching, painful intercourse, and burning). The Revaree insert is convenient and not messy and should be used 2 to 3 times a week. Revaree is professionally recommended, easily ordered by the patient, costs about $40 per month, and shipped directly to the patient's home. Revaree is a perfect choice for women who need relief and either cannot or do not want to use hormonal therapy for their vaginal atrophy symptoms. *Clairvee is the only oral probiotic that has been proven to target the vagina's microbiome, restoring lactobacilli, and thus reducing the recurrence of BV and yeast. Rigorous clinical trials show that Clairvee significantly reduces these annoying recurrences while balancing the vagina's microbiome and pH. Clairvee should be taken orally each day for 15 days of the month; 15 days off; then resumed for 15 days and so forth. Clairvee begins to balance the microbiome in as little as 15 days with best results at 6 months. Clairvee is professionally recommended, easily ordered by the patient, costs about $35 per month, and directly shipped to the patient's home. Clairvee is a great option for patients who struggle with recurring BV and yeast who have had no other prevention strategies in the past. It is also a great choice for women who have GSM symptoms of odor, itching, and discharge with an intermediate chance score, but have not had any other means to eliminate the embarrassing symptoms. *Relizen is a clinically validated, hormone free, safe, and effective therapy that significantly reduces the intensity and frequency of hot flashes. Relizen works by expressing a mild seratenurgic effect on the hypothalamus. Relizen is professionally recommended, easily ordered by the patient, costs $35 per month, and directly shipped to the patient's home. Relizen is a great choice for women who struggle with hot flashes and either cannot or do not want to use hormone therapy. Allergies As of Date: 04/03/2024 Noted Allergy Reaction PENICILLINS 06/07/2020 14 - Other: See Comments Date Reviewed: 04/03/2024 Reviewed by: James Zamora APRN.MARKET RISK ANALYST - Fully Assessed Reason for Visit: Vaginal Problem [117] Primary Visit Diagnosis:Bacterial vaginosis [N76.0, B96.89] Other Visit Diagnoses:Vaginal discharge [N89.8] Urinary frequency [R35.0] Order(s):GONORRHEA/CHLAMYDIA NAAT [SQGCCT] Order #: [id number]. #:[id number] SHANNAN/TRICHOMONAS NAAT [SQCVTV] Order #: [id number]. #:[id number] BACTERIAL VAGINOSIS NAAT [SQBVAMP] Order #: [id number]. #:[id number] URINE CULTURE [SQURCUL] Order #: [id number] FUTURE UROGENITAL UREAPLASMA AND MYCOPLASMA SPECIES BY PCR, FOR GENITAL, RECTAL, URINE SAMPLES [SQURMPCR] Order #: [id number]. #:[id number] UA DIP, URINE (POC) [[id number]] Order #: [id number]. #:[id number] clindamycin phosphate (CLEOCIN) 2 % vaginal creamUse 1 Applicatorful vaginally daily at bedtime for 7 days.Disp: 40 gRfl: 0 fluconazole (DIFLUCAN) 150 mg tabletTake 1 tablet by mouth one time only for 1 dose.Disp: 1 tabletRfl: 0 metroNIDAZOLE (METROGEL) 0.75 % (37.5mg/5 gram) Vaginal GelUse 1 Applicatorful vaginally two times a week. After finishing Clindamycin treatment.Disp: 70 gRfl: 2 URINE CULTURE [SQURCUL] Order #: [id number]. #:[id number] Prescriptions as of 04/03/2024 - clindamycin phosphate (CLEOCIN) 2 % vaginal cream Use 1 Applicatorful vaginally daily at bedtime for 7 days. - fluconazole (DIFLUCAN) 150 mg tablet Take 1 tablet by mouth one time only for 1 dose. - metroNIDAZOLE (METROGEL) 0.75 % (37.5mg/5 gram) Vaginal Gel Use 1 Applicatorful vaginally two times a week. After finishing Clindamycin treatment. Problem List As Of Date: 04/03/2024 (None) Other instructions from your clinician: *Revaree is a NAMS recommended, leading selling vaginal insert for the relief of symptoms of vaginal atrophy and the buddhism of the vagina's epithelial lining and pH -- hormone free. In capr-au-jbse clinical trials, Revaree performed as well as estrogen creams in reducing symptoms of vaginal atrophy (dryness, itching, painful intercourse, and burning). The Revaree insert is convenient and not messy and should be used 2 to 3 times a week. Revaree is professionally recommended, easily ordered by the patient, costs about $40 per month, and shipped directly to the patient's home. Revaree is a perfect choice for women who need relief and either cannot or do not want to use hormonal therapy for their vaginal atrophy symptoms. *Clairvee is the only oral probiotic that has been proven to target the vagina's microbiome, restoring lactobacilli, and thus reducing the recurrence of BV and yeast. Rigorous clinical trials show that Clairvee significantly reduces these annoying recurrences while balancing the vagina's microbiome and pH. Clairvee should be taken orally each day for 15 days of the month; 15 days off; then resumed for 15 days and so forth. Clairvee begins to balance the microbiome in as little as 15 days with best results at 6 months. Clairvee is professionally recommended, easily ordered by the patient, costs about $35 per month, and directly shipped to the patient's home. Clairvee is a great option for patients who struggle with recurring BV and yeast who have had no other prevention strategies in the past. It is also a great choice for women who have GSM symptoms of odor, itching, and discharge with an intermediate chance score, but have not had any other means to eliminate the embarrassing symptoms. *Relizen is a clinically validated, hormone free, safe, and effective therapy that significantly reduces the intensity and frequency of hot flashes. Relizen works by expressing a mild seratenurgic effect on the hypothalamus. Relizen is professionally recommended, easily ordered by the patient, costs $35 per month, and directly shipped to the patient's home. Relizen is a great choice for women who struggle with hot flashes and either cannot or do not want to use hormone therapy. Prescriptions ordered this encounter Disp Refills Start End CLINDAMYCIN 2 % VAGINAL CREAM 40 g 0 04/03/2024 04/10/2024 Route: VAGINAL Sig: Use 1 Applicatorful vaginally daily at bedtime for 7 days. FLUCONAZOLE 150 MG TABLET 1 ta* 0 04/03/2024 04/03/2024 Route: ORAL Sig: Take 1 tablet by mouth one time only for 1 dose. METRONIDAZOLE 0.75 % (37.5 MG/5 GRAM* 70 g 2 04/03/2024 Route: VAGINAL Sig: Use 1 Applicatorful vaginally two times a week. After finishing Clindamycin treatment. Medications Discontinued During This Encounter Prescriptions - ACIDOPHILUS cap (Discontinued) Reported on 11/19/2022 Encounter Status:Closed by JAMES ZAMORA on 04/03/24 PROGRESS Observed: 04/03/2024 7:23 AM Status: COMPLETED Source: [facility] ID: [id number] Author: JAMES ZAMORA APRN.MARKET RISK ANALYST Service: ? Author Type: Nurse Practitioner Type: Progress Notes Filed: 04/03/2024 08:16 Note Text: Marlon Granger is a 29 year old female who presents for problem visit of recurrent bacterial vaginosis. HPI: Marlon has been positive for BV several times in the last year -- 01/27/24 10/25/23 08/10/23 + yeast 02/19/23, 02/14/24 + chlamydia 08/14/22 She is typically treated with Flagyl for the BV. She was most recently sent vaginal clindamycin on 02/14/24. Symptoms improve after treatment. Used to take a women's health probiotic, which helped, but has not been able to find the brand that was helpful. Notes BV symptoms the most around her period -- vaginal odor, sometimes discharge. Using pads - states they are organic. Noticed these symptoms started with this type of pad use. Uses Dial soap and Dove sensitive. OB History No obstetric history on file. 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 No past surgical history on file. No family history on file. Social History Tobacco Use Smoking status: Every Day Types: Cigarettes Smokeless tobacco: Never Substance Use Topics Alcohol use: Yes Comment: social Drug use: Never Current Outpatient Medications Medication Sig ACIDOPHILUS cap (Patient not taking: Reported on 11/19/2022) No current facility-administered medications for this visit. Allergies As of Date: 04/03/2024 Allergen Noted Reaction PENICILLINS 06/07/2020 Other: See Comments Fully Assessed 02/14/2024 REVIEW OF SYSTEMS Expanded ROS: SECURITY SUPPORT ANALYST: + reoccurring BV Allergies and current medication updated:Yes SENSITIVE EXAM: The sensitive examination was discussed with the Patient or Patient's Authorized Well Digger. As applicable, any other physician, advance practice provider, medical student, or other health professional student that will be observing or involved in the sensitive examination for educational or training purposes was discussed with the Patient or Authorized Well Digger. The Patient or Authorized Well Digger has agreed to proceed with the sensitive examination. (Sensitive examination includes inspection and/or palpation of the breasts, pelvis, prostate and anorectal regions). EXAM: BP 110/62 Wt 120 lb (54.4kg) LMP 03/04/2024 GENERAL: pleasant, female in no apparent distress HEENT: Normocephalic, atraumatic, mucus membranes moist, and no lesions CHEST: Normal inspiratory effort PELVIC: external genitalia normal, normal Bartholin's glands, urethra, Salado's glands, no vulvar lesions, no cervical lesions, good vaginal support, + white discharge, normal appearing perineal body and perianal region BIMANUAL: uterus normal size, shape and consistency, no adnexal masses, and non-tender NEURO: alert and oriented x3,exam grossly non-focal EXTREMITIES: normal ASSESSMENT AND PLAN: 1. Bacterial vaginosis - ICD9: 616.10, 041.9, ICD10: N76.0, B96.89 - Reports oral flagyl has caused oral thrush for her - Requests clindamycin for induction treatment - Recommend follow up with maintenance therapy of Flagyl gel twice a week - Start Women's Health probiotic. Recommend Clarivee through [facility] - Rx for Diflucan sent for yeast prophylaxis - Trial different brand of pads - Use Dove Sensitive soap only instead of Dial Vaginal discharge - ICD9: 623.5, ICD10: N89.8 Urinary frequency - ICD9: 788.41, ICD10: R35.0 - URINE CULTURE - UROGENITAL UREAPLASMA AND MYCOPLASMA SPECIES BY PCR, FOR GENITAL, RECTAL, URINE SAMPLES RTO for annual or sooner as needed. James Zamora APRN.MARKET RISK ANALYST Medical Decision Making: Problems: Low: Stable chronic illness Data: Unique test result(s) reviewed: 3+ Unique test(s) ordered: 3+ Risk: Low: Low risk from testing/treatment Moderate: Drug management Medical Decision Making Level: 4 - Moderate CNPN Observed: 02/15/2024 12:00 AM Status: COMPLETED Source: [facility] Telephone (WSTR) MARLON GRANGER ([id number]) 1995 F Date Time Provider Department 02/15/24 BHAVNA COTA UCWSTR During your visit today, we recorded the following information about you: Bhavna Cota APRN.MARKET RISK ANALYST 02/15/2024 8:31 AM Signed Please advise patient the test was positive for BV and yeast. I have sent vaginal clindamycin to the pharmacy for BV and diflucan for yeast. She may also use vaginal boric acid suppositories which can be found at the pharmacy. Test was negative for trichomonas, chlamydia, and gonorrhea. Bhavna Cota APRN.Malachi Dallas LPN 02/15/2024 9:16 AM Signed Patient given results and verbalized understanding of instructions given. Malachi Mitchell LPN Allergies As of Date: 02/15/2024 Noted Allergy Reaction PENICILLINS 06/07/2020 14 - Other: See Comments Date Reviewed: 02/14/2024 Reviewed by: Malachi Mitchell LPN - Fully Assessed Reason for Visit: Results [95] Primary Visit Diagnosis:BV (bacterial vaginosis) [N76.0, B96.89] Other Visit Diagnosis:Vaginal yeast infection [B37.31] Order(s):clindamycin phosphate 2 % vaginal creamUse 1 Applicatorful vaginally daily at bedtime for 7 days.Disp: 40 gRfl: 0 fluconazole (DIFLUCAN) 150 mg tabletTake 1 tablet by mouth one time only for 1 dose. Repeat in 3 days as needed.Disp: 2 tabletRfl: 0 Prescriptions as of 02/15/2024 - clindamycin phosphate 2 % vaginal cream Use 1 Applicatorful vaginally daily at bedtime for 7 days. - fluconazole (DIFLUCAN) 150 mg tablet Take 1 tablet by mouth one time only for 1 dose. Repeat in 3 days as needed. - ACIDOPHILUS cap Problem List As Of Date: 02/15/2024 (None) Prescriptions ordered this encounter Disp Refills Start End CLINDAMYCIN 2 % VAGINAL CREAM 40 g 0 02/15/2024 2024 Route: VAGINAL Sig: Use 1 Applicatorful vaginally daily at bedtime for 7 days. FLUCONAZOLE 150 MG TABLET 2 ta* 0 02/15/2024 02/15/2024 Route: ORAL Sig: Take 1 tablet by mouth one time only for 1 dose. Repeat in 3 days as needed. Encounter Status:Closed by BHAVNA COTA on 02/15/24 BACTERIAL VAGINOSIS NAAT Collected: 08/2023 11:46 AM Status: F Source: [facility] Comment: Specimen Type : SWAB Ordering Facility: [facility] Address: [address] [place] [address] TYPE CODE TESTS RESULT OUT OF RANGE REFERENCE UNITS LAB 97355-6(LOINC) BV bacteria rRNA Vag Ql RC+probe Positive for bacterial vaginosis Abnormal Negative for bacterial vaginosis Performed By: #### 59285-8, BVAMP #### [facility] CLIA [id number] [address] [place] [address] [place] C TRACH+GC DNA SPEC QL RC+PROBE Collected: 02/14/2024 11:46 AM Status: F Source: [facility] Comment: Specimen Type : SWAB Ordering Facility: [facility] Address: [address] [place] [address] TYPE CODE TESTS RESULT OUT OF RANGE REFERENCE UNITS LAB 70726-9(LOINC ) N gonorrhoea rRNA Spec Ql RC+probe Negative for Neisseria gonorrhoeae by amplification Negative for Neisseria gonorrhoeae by amplification LAB 25965-7(LOINC ) C trach rRNA Spec Ql RC+probe Negative for Chlamydia trachomatis by amplification Negative for Chlamydia trachomatis by amplificaton Performed By: #### 24855-9, BVAMP #### [facility] CLIA [id number] [address] [place] [address] [place] SHANNAN/TRICHOMONAS NAAT Collected: 08/2023 11:46 AM Status: F Source: [facility] Comment: Specimen Type : SWAB Ordering Facility: [facility] Address: [address] [place] [address] TYPE CODE TESTS RESULT OUT OF RANGE REFERENCE UNITS LAB 18995-1([facility] [place]) Shannan DNA Vag Ql RC+probe Positive for Shannan species Abnormal Negative for Shannan species LAB 25625-0([facility] [place]) C glabrata RNA Vag Ql RC+probe Negative for Shannan glabrata Negative for Shannan glabrata LAB 42959-7([facility]) T vaginalis DNA Spec Ql RC+probe Negative for Trichomonas vaginalis by amplification Negative for Trichomonas vaginalis by amplification Performed By: #### CVTV #### [facility] CLIA [id number] [address] [facility] [address] [place] [id number] [place] PROGRESS Observed: 02/14/2024 11:13 AM Status: COMPLETED Source: [facility] HNO ID: [id number] Author: GHISLAINE GRANADOS PA Service: ? Author Type: Physician Caponizer Type: Progress Notes Filed: 02/14/2024 11:25 Note Text: This note was created using [employer]. Subjective [place] Tata Granger is a 28 year old female. HPI 28-year-old female presents for vaginal itching and discharge x 1 week. Patient was seen here on 01/26 for vaginal odor. She tested positive for BV at that time. She used MetroGel with improvement in the vaginal odor. However, she is now having crusty vaginal discharge and itching. She is concerned she may have yeast infection. She denies any abdominal pain, pelvic pain, back pain. No urinary symptoms. No concern for . LMP was 01/30/2024. Patient would like tested for STDs. No other complaint. No past medical history on file. No past surgical history on file. ALLERGIES Penicillins MEDICATIONS ACIDOPHILUS cap (Patient not taking: Reported on 11/19/2022) No family history on file. Social History Tobacco Use Smoking status: Every Day Types: Cigarettes Smokeless tobacco: Never Substance Use Topics Alcohol use: Yes Comment: social Drug use: Never Review of Systems Constitutional: Negative for chills and fever. HENT: Negative for congestion, ear pain and sore throat. Respiratory: Negative for cough and shortness of breath. Cardiovascular: Negative for chest pain. Gastrointestinal: Negative for abdominal pain, diarrhea and vomiting. Genitourinary: Positive for vaginal discharge. Negative for vaginal pain. Objective BP 126/85 Pulse 90 Temp 36.6 ?C (97.9 ?F) Resp 20 Wt 52 kg (114 lb 10.2 oz) LMP 02/05/2024 (Approximate) SpO2 100% Physical Exam Vitals and nursing note reviewed. Constitutional: General: She is not in acute distress. Appearance: Normal appearance. She is not toxic-appearing. HENT: Nose: Nose normal. Mouth/Throat: Mouth: Mucous membranes are moist. Eyes: Conjunctiva/sclera: Conjunctivae normal. Cardiovascular: Rate and Rhythm: Normal rate and regular rhythm. Pulmonary: Effort: Pulmonary effort is normal. Breath sounds: Normal breath sounds. Abdominal: General: Abdomen is flat. Palpations: Abdomen is soft. Tenderness: There is no abdominal tenderness. Genitourinary: Comments: Deferred, pt wants to self swab. Skin: General: Skin is warm and dry. Neurological: Mental Status: She is alert. Assessment and Plan ASSESSMENT/PLAN: 1. Vaginal discharge - ICD9: 623.5, ICD10: N89.8 - SHANNAN/TRICHOMONAS NAAT - BACTERIAL VAGINOSIS NAAT - GONORRHEA/CHLAMYDIA NAAT -Declines HIV/syphilis testing. -Please treat based on results above. If patient is positive for BV, she states oral metronidazole gives her thrush and vaginal MetroGel causes yeast, so she prefers vaginal clindamycin gel. She has used this in the past. Diagnosis and treatment plan were discussed and questions were answered to the patient's satisfaction. Pt acknowledged understanding of concepts and follow up plan. Specific signs and symptoms that would indicate the need for higher level of care were discussed in detail warranting prompt ER evaluation. SRIDHAR Denis CNOV Observed: 02/14/2024 11:00 AM Status: COMPLETED Source: [facility] Office Visit (WSTR) MARLON GRANGER ([id number]) 1995 F Date Time Provider Department 02/14/24 11:00 AM GHISLAINE GRANADOSWSTR During your visit today, we recorded the following information about you: Temperature Pulse Respiration Blood pressure 97.9 degrees 90/minute 20/minute 126/85 Weight Last Period 52 kg 02/05/24 Ghislaine Granados PA 02/14/2024 11:25 AM Signed This note was created using [employer]. Subjective [place] Tata Granger is a 28 year old female. HPI 28-year-old female presents for vaginal itching and discharge x 1 week. Patient was seen here on 01/26 for vaginal odor. She tested positive for BV at that time. She used MetroGel with improvement in the vaginal odor. However, she is now having crusty vaginal discharge and itching. She is concerned she may have yeast infection. She denies any abdominal pain, pelvic pain, back pain. No urinary symptoms. No concern for . LMP was 01/30/2024. Patient would like tested for STDs. No other complaint. No past medical history on file. No past surgical history on file. ALLERGIES Penicillins MEDICATIONS ACIDOPHILUS cap (Patient not taking: Reported on 11/19/2022) No family history on file. Social History Tobacco Use Smoking status: Every Day Types: Cigarettes Smokeless tobacco: Never Substance Use Topics Alcohol use: Yes Comment: social Drug use: Never Review of Systems Constitutional: Negative for chills and fever. HENT: Negative for congestion, ear pain and sore throat. Respiratory: Negative for cough and shortness of breath. Cardiovascular: Negative for chest pain. Gastrointestinal: Negative for abdominal pain, diarrhea and vomiting. Genitourinary: Positive for vaginal discharge. Negative for vaginal pain. Objective BP 126/85 Pulse 90 Temp 36.6 ?C (97.9 ?F) Resp 20 Wt 52 kg (114 lb 10.2 oz) LMP 02/05/2024 (Approximate) SpO2 100% Physical Exam Vitals and nursing note reviewed. Constitutional: General: She is not in acute distress. Appearance: Normal appearance. She is not toxic-appearing. HENT: Nose: Nose normal. Mouth/Throat: Mouth: Mucous membranes are moist. Eyes: Conjunctiva/sclera: Conjunctivae normal. Cardiovascular: Rate and Rhythm: Normal rate and regular rhythm. Pulmonary: Effort: Pulmonary effort is normal. Breath sounds: Normal breath sounds. Abdominal: General: Abdomen is flat. Palpations: Abdomen is soft. Tenderness: There is no abdominal tenderness. Genitourinary: Comments: Deferred, pt wants to self swab. Skin: General: Skin is warm and dry. Neurological: Mental Status: She is alert. Assessment and Plan ASSESSMENT/PLAN: 1. Vaginal discharge - ICD9: 623.5, ICD10: N89.8 - SHANNAN/TRICHOMONAS NAAT - BACTERIAL VAGINOSIS NAAT - GONORRHEA/CHLAMYDIA NAAT -Declines HIV/syphilis testing. -Please treat based on results above. If patient is positive for BV, she states oral metronidazole gives her thrush and vaginal MetroGel causes yeast, so she prefers vaginal clindamycin gel. She has used this in the past. Diagnosis and treatment plan were discussed and questions were answered to the patient's satisfaction. Pt acknowledged understanding of concepts and follow up plan. Specific signs and symptoms that would indicate the need for higher level of care were discussed in detail warranting prompt ER evaluation. SRIDHAR Denis Allergies As of Date: 02/14/2024 Noted Allergy Reaction PENICILLINS 06/07/2020 14 - Other: See Comments Date Reviewed: 02/14/2024 Reviewed by: Malachi Mitchell LPN - Fully Assessed Reason for Visit: Vaginal Problem [117] Cmt: Itching, discharge, possible smell, std testing to be sure x 1 week + Primary Visit Diagnosis:Vaginal discharge [N89.8] Order(s):SHANNAN/TRICHOMONAS NAAT [SQCVTV] Order #: [id number]. #:[id number] BACTERIAL VAGINOSIS NAAT [SQBVAMP] Order #: [id number]. #:[id number] GONORRHEA/CHLAMYDIA NAAT [SQGCCT] Order #: [id number]. #:[id number] Prescriptions as of 02/14/2024 - ACIDOPHILUS cap Problem List As Of Date: 02/14/2024 (None) Encounter Status:Closed by GHISLAINE GRANADOS on 02/14/24 ALLERGIES DATE TYPE / CODE NAME / CODE REACTION SEVERITY SOURCE 06/17/2024 DRUG INGREDI/714785221 (SNOMED CT) TIOCONAZOLE INTOLERANCE [facility] 04/20/2024 DRUG INGREDI/[id number] (SNOMED CT) MOXIFLOXACIN INTOLERANCE [facility] 06/07/2020 Drug Class/030782052(S NOMED CT) PENICILLINS OTHER: SEE C [facility] ENCOUNTERS ADMIT/DISCHARGE ACCOUNT NUMBER ADMITTING ENCOUNTER CLASS LOC ATION SOURCE 02/01/2025/ 5 [id number] Ambulatory [facility] HospitalBuild ing:WMOB [facility] 01/28/2025/ 5 [id number] Ambulatory [facility] HospitalBuild ing:WMOB [facility] 01/25/2025/ 5 [id number] Ambulatory [facility] HospitalBuild ing:WMOB [facility] 01/18/2025/ 5 [id number] Ambulatory [facility] HospitalBuild ing:WMOB [facility] 01/15/2025/ 5 [id number] Ambulatory [facility] HospitalBuild ing:WOL2 [facility] 01/15/2025/ 5 [id number] Ambulatory [facility] HospitalBuild ing:WMOB [facility] 12/31/2024/ 5 [id number] Ambulatory [facility] HospitalBuild ing:WMOB [facility] 12/17/2024/ 5 [id number] Ambulatory [facility] HospitalBuild ing:WMOB [facility] 12/03/2024/ 5 [id number] Ambulatory [facility] HospitalBuild ing:WMOB [facility] 11/20/2024/ 5 [id number] Ambulatory [facility] HospitalBuild ing:WOL2 [facility] 11/20/2024/ 5 [id number] Ambulatory [facility] HospitalBuild ing:WMOB [facility] 10/23/2024/ 5 [id number] Ambulatory [facility] HospitalBuild ing:WMOB [facility] 09/25/2024/ 5 [id number] Ambulatory [facility] HospitalBuild ing:OGWR [facility] 09/25/2024/ 5 [id number] Ambulatory [facility] HospitalBuild ing:WMOB [facility] 09/14/2024/ 5 [id number] Ambulatory [facility] HospitalBuild ing:WMOB [facility] 09/14/2024/ 5 [id number] Ambulatory [facility] HospitalBuild ing:OGWR [facility] 08/31/2024/ 5 [id number] Ambulatory [facility] HospitalBuild ing:WMOB [facility] 08/31/2024/ 5 [id number] Ambulatory [facility] HospitalBuild ing:OGWR [facility] 07/31/2024/ 5 [id number] Ambulatory [facility] HospitalBuild ing:WOL2 [facility] 07/31/2024/ 5 [id number] Ambulatory [facility] HospitalBuild ing:WMOB [facility] 07/31/2024/ 5 [id number] Ambulatory [facility] HospitalBuild ing:OGWR [facility] 06/26/2024/ 5 [id number] Ambulatory [facility] HospitalBuild ing:WMOB [facility] 06/17/2024/ 5 [id number] Ambulatory [facility] HospitalBuild ing:WOUC [facility] 05/07/2024/ 4 [id number] Ambulatory [facility] HospitalBuild ing:WMOB [facility] 04/03/2024/ 4 [id number] Ambulatory [facility] HospitalBuild ing:WMOB [facility] 02/14/2024/ 4 [id number] Ambulatory [facility] HospitalBuild ing:WOUC [facility] PAYERS ENCOUNTER GUARANTOR PAYER SUBSCRIBER SOURCE 02/01/2025 Primary Insurance:[employer] MEDICAIDPolicy Number: [id number] Date:3649-16-95Akeu Name:Gayle AMBROSIO: [id number] [place] [address] [facility] 01/28/2025 Primary Insurance[facility] [place] [place]Policy Number: [id number] Date:5212-21-83Ltoq Name:Gayle JIB: [id number] [place] [address] [facility] 01/25/2025 Primary Insurance:[employer] MEDICAIDPolicy Number: [id number] Date:4842-02-95Ljdz Name:Gayle JIB: [id number] [place], [place] [address] [place] [address] 01/18/2025 Primary Insurance:[employer] MEDICAIDPolicy Number: [id number] Date:3367-33-33Gisy Name:Gayle GRANGERDOB: [id number] [place], [place] [address] [place] [address] 01/15/2025 [facility]Policy Number: [id number] Date:9312-35-22Cqdp Name:Gayle JIB: [id number] [address] [place], [place] [address] [place] [address] 01/15/2025 Primary Insurance:[employer] MEDICAIDPolicy Number: [id number] Date:8339-34-20Njjr Name:Gayle JIB: [id number] [address] [place], [place] [address] [place] [address] 12/31/2024 Primary Insurance:[employer] MEDICAIDPolicy Number: [id number] Date:8450-17-33Pmbq Name:Gayle GRANGERDOB: [id number] [place], [place] [address] [place] [address] 12/17/2024 Primary Insurance:[employer] MEDICAIDPolicy Number: [id number] Date:0171-99-37Oqnh Name:Gayle GRANGERDOB: [id number] [address] [place], [place] [address] [place] [address] 12/03/2024 Primary Insurance:[employer] MEDICAIDPolicy Number: [id number] Date:0596-90-30Hruy Name:Gayle JIB: [id number] [place] [address] [facility] 11/20/2024 Primary Insurance:[employer] MEDICAIDPolicy Number: [id number] Date:4131-25-15Pltx Name:Gayle JIB: [id number] [place] [address] [facility] 11/20/2024 Primary Insurance:[employer] MEDICAIDPolicy Number: [id number] Date:9443-46-28Mdgr Name:Gayle JIB: [id number] [place], [place] [address] [place] [address] 10/23/2024 Primary Insurance:[facility] [place] [place]Policy Number: [id number] Date:5509-08-72Taug Name:Gayle JIB: [id number] [place], [place] [address] [place] [address] 09/25/2024 Primary Insurance:[employer] MEDICAIDPolicy Number: [id number] Date:0996-08-40Nunv Name:Gayle JIB: [id number] [address] [place], [place] [address] [place] [address] 09/25/2024 Primary Insurance:[employer] MEDICAIDPolicy Number: [id number] Date:3496-84-94Pwfe Name:Gayle JIB: [id number] [address] [place], [place] [address] [place] [address] 09/14/2024 Primary Insurance:[employer] MEDICAIDPolicy Number: [id number] Date:9807-58-59Oaqv Name:Gayle JIB: [id number] [address] [place], [place] [address] [place] [address] 09/14/2024 Primary Insurance:[employer] MEDICAIDPolicy Number: [id number] Date:9189-39-96Lrym Name:Gayle JIB: [id number] [place] [address] [facility] 08/31/2024 Primary Insurance:[facility] [place] [place]Policy Number: [id number] Date:5658-19-33Wrow Name:Gayle GRANGERDOB: [id number] [place] [address] [facility] 08/31/2024 Primary Insurance:[facility] [place] [place]Policy Number: [id number] Date:5747-42-62Ngiw Name:Gayle GRANGERDOB: [id number] [address] [place], [place] [address] [place] [address] 07/31/2024 [facility] [place] [facility]Policy Number: [id number] Date:0710-97-73Bufr Name:Gayle JIB: [id number] [address] [place], [place] [address] [place] [address] 07/31/2024 Primary Insurance:[facility] [place] [place]Policy Number: [id number] Date:5027-17-39Sqjk Name:Gayle JIB: [id number] [place], [place] [address] [place] [address] 07/31/2024 Primary Insurance:[facility] [place] [place]Policy Number: [id number] Date:0396-06-58Kuhq Name:Gayle GRANGERDOB: [id number] [address] [place], [place] [address] [place] [address] 06/26/2024 Primary Insurance:[facility] [place] [place]Policy Number: [id number] Date:4860-09-49Ssju Name:Gayle GRANGERDOB: [id number] [address] [place], [place] [address] [place] [address] 06/17/2024 Primary Insurance:[employer] MEDICAIDPolicy Number: [id number] Date:7891-45-20Jpob Name:Gayle JIB: [id number] [place] [address] [facility] 05/07/2024 Primary Insurance:[employer] MEDICAIDPolicy Number: [id number] Date:5281-66-33Kgip Name:Gayle JIJacob: [id number] [place] [address] [facility] 04/03/2024 Primary Insurance:[employer] MEDICAIDPolicy Number: [id number] Date:0809-59-32Yrau Name:Gayle [place] HEBERT: [id number] [place] [address] [facility] 02/14/2024 Primary Insurance:[employer] MEDICAIDPolicy Number: [id number] Date:0343-30-89Mhgu Name:Gayle [place] HEBERT: [id number] [place] [address] [facility]
--- OUTSIDE RECORDS SUMMARY | 2025-02-01 13:10 | XMS RPT_ITS ---
Author Name [employer] Organization OHIP Care Team Providers Care Tobacco Sample Puller Name Role Phone ANGELINE GRULLON Primary Care Unavailabl GRISEL Goins Attending Unavailable ANGELINE GRULLON Primary Care Unavailabl e HAMUSTAPHA, JAMES Referring Unavailable ANGELINE GRULLON Primary Care Unavailabl e GEO MARIE Referring Unavailable ANGELINE GRULLON Primary Care Unavailabl GEO Morrison Attending Unavailable JAMES ZAMORA Referring Unavailable ANGELINE GRULLON Primary Care Unavailabl [...] Referring Unavailable ANGELINE GRULLON Primary Care Unavailabl GRISEL Goins Attending Unavailable BELEN ZAMORAILY Referring Unavailable [...] DATE TYPE CONDITION / CODE ATTENDING STATUS [facility] 02/01/2025 Active 38 weeks gestati on of (HCC) / Z3A.38(ICD-10) JOSE VILLAFANA Active [facility] 01/28/2025 Active Pelvic pain duri ng (HCC) / O26.899(ICD-10) MARLENE CRUZ Active [facility] 01/28/2025 Active Pelvic pain duri ng (HCC) / R10.2(ICD-10) MARLENE CRUZ Active [facility] 01/25/2025 Active 37 weeks gestati on of (HCC) / Z3A.37(ICD-10) JOSE VILLAFANA Active [facility] 01/18/2025 Active 36 weeks gestati on of (HCC) / Z3A.36(ICD-10) JOSE VILLAFANA Active [facility] 01/18/2025 Active Nausea/vomiting in (HCC) / O21.9(ICD-10) JOSE VILLAFANA Active [facility] 01/15/2025 Active 35 weeks gestati on of (HCC) / Z3A.35(ICD-10) GEO MARIE Active [facility] 12/31/2024 Active 33 weeks gestati on of (HCC) / Z3A.33(ICD-10) GRISEL SHEN Active [facility] 12/31/2024 Active Vaginal discharg e / N89.8(ICD-10) GRISEL SHEN Active [facility] 12/03/2024 Active Supervision of h igh risk in third trimester (HCC) / O09.93(ICD-10) GRISEL SHEN Active [facility] 10/23/2024 Active Sickle cell gricel t / D57.3(ICD-10) GRISEL SHEN Active [facility] 08/03/2024 Active Rh negative stat e in antepartum period (HCC) / O26.899(ICD-10) GRISEL SHEN Active [facility] 08/03/2024 Active Rh negative stat e in antepartum period (HCC) / Z67.91(ICD-10) GRISEL SHEN Active [facility] 06/29/2024 Active Group beta Strep positive / B95.1(ICD-10) GRISEL SHEN Active [facility] 06/26/2024 Active Penicillin aller gy / Z88.0(ICD-10) GRISEL SHEN Active [facility] 06/26/2024 Active History of prete rm delivery, currently (HCC) / O09.899(ICD-10) GRISEL SHEN Active [facility] 12/17/2024 Active 31 weeks gestati on of (HCC) / Z3A.31(ICD-10) GRISEL SHEN Active [facility] 12/17/2024 Active Anemia complicat ing , third trimester (HCC) / O99.013(ICD-10) GRISEL SHEN Active [facility] 12/03/2024 Active 29 weeks gestati on of (HCC) / Z3A.29(ICD-10) JAMES ZAMORA Active [facility] 11/20/2024 Active 23 weeks gestati on of (HCC) / Z3A.23(ICD-10) NA Active [facility] 11/20/2024 Active Screening for di abetes mellitus / Z13.1(ICD-10) NA Active [facility] 10/23/2024 Active Supervision of h igh risk in second trimester (HCC) / O09.92(ICD-10) WENDY LE Active [facility] 11/20/2024 Active 27 weeks gestati on of (HCC) / Z3A.27(ICD-10) WENDY LE Active [facility] 09/25/2024 Active 6 weeks gestatio n of (HCC) / Z3A.01(ICD-10) NA Active [facility] 06/26/2024 Active Vaginal itching / N89.8(ICD-10) GRISEL SHEN Active [facility] 09/25/2024 Active 19 weeks gestati on of (HCC) / Z3A.19(ICD-10) GRISEL SHEN Active [facility] 09/14/2024 Active 18 weeks gestati on of (HCC) / Z3A.18(ICD-10) GRISEL SHEN Active [facility] 06/26/2024 Active Encounter for supervision of high risk in first trimester, antepartum (HCC) / O09.91(ICD-10) JOSE VILLAFANA Active [facility] 08/31/2024 Active 16 weeks gestati on of (HCC) / Z3A.16(ICD-10) JOSE VILLAFANA Active [facility] 08/31/2024 Active History of prete rm delivery / Z87.51(ICD-10) JOSE VILLAFANA Active [facility] 08/31/2024 Active History of prete rm labor / Z87.51(ICD-10) NA Active [facility] 06/26/2024 Active Encounter for supervision of high risk in first trimester, antepartum / O09.91(ICD-10) NA Active [facility] 07/31/2024 Active 6 weeks gestatio n of / Z3A.01(ICD-10) NA Active [facility] 06/26/2024 Active with uncertain dates in first trimester / Z34.91(ICD-10) JAMES ZAMORA Active [facility] PROCEDURES No Procedure Records Found RESULTS PROGRESS Observed: 02/05/2025 10:01 AM Status: COMPLETED Source: [facility] HNO ID: [id number] Author: NUVIA AGUILAR MA Service: ? Author Type: Poultry Scalder Type: Progress Notes Filed: 02/05/2025 10:02 Note [...] Observed: 02/03/2025 12:08 PM Status: COMPLETED Source: [facility] HNO ID: [id number] Author: NUVIA AGUILAR MA Service: ? Author Type: Poultry Scalder Type: Progress Notes Filed: 02/03/2025 12:10 Note Text: POPULATION HEALTH NAVIGATION OUTREACH Action/ attempt: Called and left message to call back to discuss terminal operations manager. MC message sent. PPC to PCP by 04/12/25. Reason for Outreach Medicaid OB/Peds Care Gaps due: to PCP Visit Patient Contacted: Unable or unnecessary to reach patient: Unable to reach patient Left message [employer] message sent Navigation Signature: Nuvia Ramirez MA February 03, 2025 12:09 PM CNPTOUTREADANTE Observed: 02/03/2025 12:00 AM Status: COMPLETED Source: [facility] Patient Outreach (NETNAV) MARLON GRANGER ([id number]) 1995 F Date Time Provider Department 02/03/25 NUVIA AGUILAR During your visit today, we recorded the following information about you: Nuvia Aguilar MA 02/03/2025 12:10 PM Signed POPULATION HEALTH NAVIGATION OUTREACH Action/ attempt: Called and left message to call back to discuss terminal operations manager. MC message sent. PPC to PCP by 04/12/25. Reason for Outreach Medicaid OB/Peds Care Gaps due: to PCP Visit Patient Contacted: Unable or unnecessary to reach patient: Unable to reach patient Left message [employer] message sent Navigation Signature: Nuvia Ramirez MA [...] Observed: 01/28/2025 12:00 AM Status: COMPLETED Source: [facility] Telephone (OBGYWM) GRANGERMARLON Tata Palma ([id number]) 1995 F Date Time Provider Department 01/28/25 [...] Observed: 01/28/2025 12:00 AM Status: COMPLETED Source: [facility] Letter Text ROUTINE, GROUP B STREPTOCOCCUS BY PCR Observed: 01/18/2025 3:15 PM Status: F Source: [facility] GRP B STREPTOCOCCUS DNA, ROU KASIA : Detected Performed By: #### 584-3, GB PCR #### [facility] CLIA [id number] [address] [place] [address] [place] GP B STREP VAG QL CULT Observed: 025 3:15 PM Status: F Source: [facility] ORGANISM ID: 1 Positive for Streptococcus agalactiae [...] Performed By: #### 584-3, GB PCR #### [facility] CLIA [id number] [address] [place] [address] [place] CBC W AUTO DIFF BLD Collected: 01/15/2025 3:[address] atus: F Source: [facility] Order Comment: Specimen Type : BLOOD SPECIMEN Ordering Facility: [facility] Address: [address] [place] [address] TYPE CODE TESTS RESULT OUT OF RANGE [...] MCHC RBC Auto-mCnc 34.4 30.5-36.0 g/dL LAB 34844-9(LOINC) RDW RBC-Rto 13.8 11.5-15.0 % LAB 777-3(LOINC) Platelet # Bld Auto 333 150-400 k/uL LAB 31007-1(LOINC) PMV Bld Auto 9.8 9.0-12.7 fL LAB [...] # Bld Auto 0.07 <0.11 k/uL LAB 52622-9([facility]) Imm Granulocytes/david k NFr Bld Auto 1.4 % LAB 77414-4(INC) Imm Granulocytes # Bld Auto 0.23 High <0.10 k/uL LAB 69699-7([facility]) nRBC/100 WBC Bld-Rto 0.0 /100 WBC LAB 771-6([facility]) nRBC # Bld Auto <0.01 <0.01 k/u L LAB 49811-5([facility]) Differential method Bld Auto Performed By: #### 10792-7 # ### [facility] CLIA [id number] [address] [place] [address] [place] BACTERIAL VAGINOSIS NAAT Collected: 1:20 PM Status: F Source: [facility] Order Comment: Specimen Type : SWAB Ordering Facility: [facility] Address: [address] [place] [address] TYPE CODE TESTS RESULT OUT OF RANGE REFERENCE UNITS LAB 50928-5([facility]) BV bacteria rRNA Vag Ql RC+probe Not detected Not detected Performed By: #### 90197-1, BVAMP #### [facility] CLIA [id number] [address] [place] C TRACH+GC DNA SPEC QL RC+PROBE Collected: 12/31/2024 1:20 PM Status: F Source: [facility] Order Comment: Specimen Type : SWAB Ordering Facility: [facility] Address: [address] [place] [address] TYPE CODE TESTS RESULT OUT OF RANGE REFERENCE UNITS LAB 44762-4(LOINC) N gonorrhoea rRNA Spec Ql RC+probe Not detected Not detected LAB 41496-3(LOINC) C trach rRNA Spec Ql RC+probe Not detected Not detected Performed By: #### 24178-3, BVAMP #### [facility] CLIA [id number] [address] [place] [address] [place] SHANNAN/TRICHOMONAS NAAT Collected: 1:20 PM Status: F Source: [facility] Order Comment: Specimen Type : SWAB Ordering Facility: [facility] Address: [address] [place] [address] TYPE CODE TESTS RESULT OUT OF RANGE REFERENCE UNITS LAB 26227-0(LOINC ) Shannan DNA Vag Ql RC+probe Not detected Not detected Result Comment: The Shannan species group target includes C. albicans, C. tropicalis, C. parapsilosis, and C. dubliniensis. LAB 57821-8(LOINC ) C glabrata RNA Vag Ql RC+probe Not detected Not detected LAB 40555-6(LOINC ) T vaginalis DNA Spec Ql RC+probe Not detected Not detected Performed By: #### CVTV #### [facility] CLIA [id number] [address] [place] [address] [place] CNPN Observed: 12/31/2024 12:00 AM Status: COMPLETED Source: [facility] Telephone (OBVizeraLabsWCohesiveFT) MARLON GRANGER Tata Palma ([id number]) 1995 F Date Time Provider Department 12/31/24 GRISEL SHEN During your visit today, we recorded the following information about you: Nancy Harris RN 12/31/2024 4:42 PM Signed Orders for belly band and compression stockings received from [employer]. Patient requested them at visit today. Signed [...] Encounter Status:[facility] Observ[facility]: 12/24/2024 12:00 AM Status: COMPLETED Source: [facility] Telephone (OBGYWM) MARLON GRANGER Louie ([id number]) 1995 F Date Time Provider Department 12/24/24 JAMES ZAMORA During your visit today, we recorded the following information about you: Kelly Stern LPN 12/24/2024 4:09 PM Signed Order received from [employer] for breast pump. Order to Keerthi Zamora [...] Observed: 12/08/2024 12:00 AM Status: COMPLETED Source: [facility] Telephone (OGFVWE) GRANGERMARLON Palma ([id number]) 1995 F Date Time Provider Department 12/08/24 NURSE COMMUNICATION SIGNALS INTELLIGENCE [facility] During your visit today, we [...] Date Reviewed: 12/03/2024 Reviewed by: James Zamora APRN.EDUCATION ANALYST - Fully Assessed Reason for Visit: [...] Observed: 12/07/2024 12:00 AM Status: COMPLETED Source: [facility] Telephone (OBVizeraLabsWM) MARLON GRANGER ([id number]) 1995 F Date Time Provider Department 12/07/24 [...] Date Reviewed: 12/03/2024 Reviewed by: James Zamora APRN.EDUCATION ANALYST - Fully Assessed Reason for Visit: [...] Observed: 12/07/2024 12:00 AM Status: COMPLETED Source: [facility] Letter Text HSV+VZV DNA SPEC QL RC+PROBE Collected : 12/03/2024 4:21 PM Status: F Source: [facility] Order Comment: Specimen Type : SWAB Ordering Facility: [facility] Address: [address] [place] [address] TYPE CODE TESTS RESULT OUT OF RANGE REFERENCE UNITS LAB 18638-6(LOINC) HSV1 DNA Spec Ql RC+probe Not Detected Not Detected LAB 46871-1(LOINC) HSV2 DNA Spec Ql RC+probe Not Detected Not Detected LAB 49103-3(LOINC) VZV DNA Spec Ql RC+probe Not Detected Not Detected Performed By: #### 31600-3 # ### [facility] CLIA [id number] [address] [place] [address] CNPN Observed: 11/23/2024 12:00 AM Status: COMPLETED Source: [facility] Telephone (SWETAGYWM) MARLON GRANGER ([id number]) 1995 F Date Time Provider Department 11/23/24 [...] will need dispense amt changed. Spoke to MANAGER APPLICATION DEVELOPMENT and Rx pending as Pt will have [...] JAMES ZAMORA Pharmacy Information Pharmacy Address Telephone [facility] [address] [place] [address] Allergies As of Date: 11/23/2024 [...] Observed: 11/20/2024 2:01 PM Status: F Source: [facility] ORGANISM ID: 1 <10,000 CFU/ml Normal urogenital kelvin Performed By: #### 630-4 ### # [facility] CLIA [id number] [place] TYPE + SCREEN Collected: 11/20/2024 2:00 PM Status: F Source: [facility] Comment: Specimen Type : BLOOD SPECIMEN Ordering Facility: [facility] Address: [address] [place] [address] TYPE CODE TESTS RESULT OUT OF RANGE REFERENCE UNITS LAB [id number] ABO B LAB [id number] RH Negative LAB 1100104305 ANTIBODY SCREEN Negative LAB 4615278172 TYPE AND SCREEN EXPIRATION 11/23/2024 23:59 Performed By: #### TSPN #### [facility] CLIA [id number] [address] [place] [address] [place] FERRITIN SERPL-MCNC Collected: 11/21/19 2:00 PM Status: F Source: [facility] Comment: Specimen Type : BLOOD SPECIMEN Ordering Facility: [facility] Address: [address] [place] [address] TYPE CODE TESTS RESULT OUT OF RANGE REFERENCE UNITS LAB 2276-4(LOINC) Ferritin SerPl-mCnc 10.5 Low 14.7-205.1 ng/mL Performed By: #### 2276-4, 5 0190-8 #### [facility] CLIA [id number] [address] [place] [address] [place] IRON+TIBC PNL SERPL Collected: 11/20/2024 2:[address] atus: F Source: [facility] Comment: Specimen Type : BLOOD SPECIMEN Ordering Facility: [facility] Address: [address] [place] [address] TYPE CODE TESTS RESULT OUT OF RANGE REFERENCE UNITS LAB 2498-4(LOINC) Iron SerPl-mCnc 37 Low 41-186 ug/dL LAB 2500-7(LOINC) TIBC SerPl-mCnc >537 High 232-386 ug/dL LAB 01653-7(LOINC) Iron/TIBC SerPl-sRto <6.9 Low 15.0-57.0 % Performed By: #### 2276-4, 5 0190-8 #### [facility] CLIA [id number] [address] [place] [address] REAGIN+T PALLIDUM IGG+IGM SERPL-IMP Collected: 11/20/2024 2:00 PM Status: F Source: [facility] Order Comment: Specimen Type : BLOOD SPECIMEN Ordering Facility: [facility] Address: [address] [place] [address] TYPE CODE TESTS RESULT OUT OF RANGE REFERENCE UNITS LAB 13089-8(INC) T pallidum IgG+IgM Ser Ql [place] Nonreactive Nonreactive LAB 70659-1([facility]) Reagin+T pallidum IgG+IgM SerPl-Imp Cannot exclude recent Treponemal infection if specimen collected within 7-10 days after appearance of suspect lesions or 2-3 weeks after an exposure. Clinical correlation is required. Performed By: #### 90786-1 # ### [facility] CLIA [id number] [address] [place] [address] OF [place] CBC W AUTO DIFF BLD Collected: 11/20/2024 2:[address] atus: F Source: [facility] Order Comment: Specimen Type : BLOOD SPECIMEN Ordering Facility: [facility] Address: [address] [place] [address] TYPE CODE TESTS RESULT OUT OF RANGE [...] MCHC RBC Auto-mCnc 34.8 30.5-36.0 g/dL LAB 12978-5(LOINC) RDW RBC-Rto 12.1 11.5-15.0 % LAB 777-3([facility]) Platelet # Bld Auto 317 150-400 k/uL LAB 81129-3([facility]) PMV Bld Auto 9.6 9.0-12.7 fL LAB 770-8([facility]) Neutrophils/leuk NFr Bld Auto 77.5 % LAB 751-8([facility]) Neutrophils # Bld Auto 14.13 High 1.45-7.50 k/uL LAB 736-9([facility]) Lymphocytes/leuk NFr Bld Auto 13.0 % LAB 731-0([facility]) Lymphocytes # Bld Auto 2.38 1.00-4.00 k/uL LAB 5905-5([facility]) Monocytes/leuk NFr Bld Auto 6.7 % LAB 742-7([facility]) Monocytes # Bld Auto 1.23 High <0.87 k/uL LAB 713-8([facility]) Eosinophil/leuk NFr Bld Auto 1.2 % LAB 711-2([facility]) Eosinophil # Bld Auto 0.22 <0.46 k/uL LAB 706-2([facility]) Basophils/leuk NFr Bld Auto 0.4 % LAB 704-7([facility]) Basophils # Bld Auto 0.08 <0.11 k/uL LAB 11737-4([facility]) Imm Granulocytes/david k NFr Bld Auto 1.2 % LAB 59503-2([facility]) Imm Granulocytes # Bld Auto 0.22 High <0.10 k/uL LAB 46489-8([facility]) nRBC/100 WBC Bld-Rto 0.0 /100 WBC LAB 771-6([facility]) nRBC # Bld Auto <0.01 <0.01 k/u L LAB 28130-7([facility]) Differential method Bld Auto Performed By: #### 19696-5 # ### [facility] CLIA [id number] [address] [place] [address] [place] GESTATIONAL GLUCOSE SCREEN, 1-HOUR, 50 GRAM, NON-FASTING Collected: 11/20/2024 2:00 PM Status: F Source: [facility] Order Comment: Specimen Type : BLOOD SPECIMEN Ordering Facility: [facility] Address: [address], [place] [address] TYPE CODE TESTS RESULT OUT OF RANGE REFERENCE UNITS LAB 2345-7(LOINC) Glucose [employer] [facility] 110 74-134 mg/dL Result Comment: [place] Mitchel beth of Obstetricians and Gynecologists (Robin/Rubin) guidelines state a gestational diabetes mellitus positive screen is made, in women not previously diagnosed with overt diabetes, when the 1 hr plasma glucose level is equal to or above 140 mg/dL. The [facility] [employer] [facility] [place] recommends a 135 mg/dL cutoff. Performed By: #### GLTGST ## ## [facility] CLIA [id number] [address] [place] [address] [place] PROGRESS Observed: 11/20/2024 1:00 PM Status: COMPLETED Source: [facility] HNO ID: [id number] Author: IFEANYI MEDINA LPN Service: ? Author [...] Rhophylac injection was given without incident. Provider Wenyd Le was present in office at time of injection. Marlon Granger was given her Rhophylac pocket card. Ifeanyi Medina LPN CNPN Observed: 10/26/2024 12:00 AM Status: COMPLETED Source: [facility] Telephone (OGFVWE) MARLON GRANGER ([id number]) 1995 F Date Time Provider Department 10/26/24 NURSE COMMUNICATION SIGNALS INTELLIGENCE [facility] POWDERLY OGFVWE During your visit today, we recorded the following information about you: Lili Bolaños, RN 10/26/2024 8:35 AM Signed 2nd risk assessment form submitted 10/26/24 Lili Bolaños RN Allergies As of Date: 10/26/2024 Noted Allergy Reaction MONISTAT 1 (TIOCONAZOLE) 06/17/2024 5 - Intolerance Comments: Vaginal burning MOXIFLOXACIN 04/20/2024 5 - Intolerance Comments: Numbness PENICILLINS 06/07/2020 14 - Other: See Comments Date Reviewed: 10/23/2024 Reviewed by: James Zamora APRN.EDUCATION ANALYST - Fully Assessed Reason for Visit: [...] NAAT Collected: 2:27 PM Status: F Source: [facility] Order Comment: Specimen Type : SWAB Ordering Facility: [facility] Address: [address] [place] [address] TYPE CODE TESTS RESULT OUT OF RANGE REFERENCE UNITS LAB 14604-7(LOINC) BV bacteria rRNA Vag Ql RC+probe Not detected Not detected Performed By: #### CVTV, BVA MP #### [facility] CLIA [id number] [address] [place] [address] OF [facility] SHANNAN/TRICHOMONAS NAAT Collected: 2:27 PM Status: F Source: [facility] Comment: Specimen Type : SWAB Ordering Facility: [facility] Address: [address] [place] [address] TYPE CODE TESTS RESULT OUT OF RANGE REFERENCE UNITS LAB 99107-5(LOINC ) Shannan DNA Vag Ql RC+probe Not detected Not detected Result Comment: The Shannan species group target includes C. albicans, C. tropicalis, C. parapsilosis, and C. dubliniensis. LAB 67814-4(LOINC ) C glabrata RNA Vag Ql RC+probe Not detected Not detected LAB 11040-0(LOINC ) T vaginalis DNA Spec Ql RC+probe Not detected Not detected Performed By: #### CVTV, BVA MP #### [facility] CLIA [id number] [address] [place] [address] OF [place] TYPE + SCREEN Collected: 07/31/2024 11:13 AM Status: F Source: [facility] Comment: Specimen Type : BLOOD SPECIMEN Ordering Facility: [facility] Address: [address] [place] [address] TYPE CODE TESTS RESULT OUT OF RANGE REFERENCE UNITS LAB [id number] ABO B LAB [id number] RH Negative LAB 7307443754 ANTIBODY SCREEN Negative LAB 8516613562 TYPE AND SCREEN EXPIRATION 08/03/2024 23:59 Performed By: #### TSPN #### [facility] CLIA [id number] [address] [place] [address] [place] HBV SURFACE AG SER QL Collected: 2024 11:13 AM Status: F Source: [facility] Comment: Specimen Type : BLOOD SPECIMEN Ordering Facility: [facility] Address: [address] [place] [address] TYPE CODE TESTS RESULT OUT OF RANGE REFERENCE UNITS LAB 5195-3(INC) HBV surface Ag Ser Ql Negative Negative Performed By: #### 68104-1, 5195-3, 31828-0 #### [facility] CLIA [id number] [address] [place] [address] OF [facility] HIV1+2 AB SERPL QL [place] Collected: 2024 11:13 AM Status: F Source: [facility] Comment: Specimen Type : BLOOD SPECIMEN Ordering Facility: [facility] Address: [address] [place] [address] TYPE CODE TESTS RESULT OUT OF RANGE REFERENCE UNITS LAB 54448-9(LOINC) HIV 1+2 Ab+HIV1 p24 Ag SerPl Ql [place] Nonreactive Nonreactive LAB 70662-3(LOINC) HIV 1 AND 2 Ab SerPlBld IA.rapid Result Comment: Test not ind icated. LAB 69043-1(LOINC) HIV IA algorithm interp SerPlBld-Imp Result Comment: No evidence of HIV-1 or HIV-2 infection. Should recent infection be suspected, repeat testing may be considered 2-3 weeks after this draw. [place] Rev. Code 3701.243(E): This information has been [...] test results or diagnoses. Performed By: #### 06813-8, 5195-3, 46773-4 #### [facility] CLIA [id number] [address] [place] [address] OF [place] REAGIN+T PALLIDUM IGG+IGM SERPL-IMP Collected: 07/31/2024 11:13 AM Status: F Source: [facility] Comment: Specimen Type : BLOOD SPECIMEN Ordering Facility: [facility] Address: [address] [place] [address] TYPE CODE TESTS RESULT OUT OF RANGE REFERENCE UNITS LAB 42453-3(LOINC) T pallidum IgG+IgM Ser Ql [place] Nonreactive Nonreactive LAB 93251-9([facility]) Reagin+T pallidum IgG+IgM SerPl-Imp Cannot exclude recent Treponemal infection if specimen collected within 7-10 days after appearance of suspect lesions or 2-3 weeks after an exposure. Clinical correlation is required. Performed By: #### 38051-4, 5195-3, 07500-3 #### [facility] CLIA [id number] [address] [place] [address] HGB EVALUATION CASCADE INTERP Collected: 07/31/2024 1 1:13 AM Status: F Source: [facility] Order Comment: Specimen Type : BLOOD SPECIMEN Ordering Facility: [facility] Address: [address] [place] [address] TYPE CODE TESTS RESULT OUT OF RANGE REFERENCE UNITS LAB HBINTEVAL INTERPRETATION (HGB EVAL) Result Comment: Hemoglobins were analyzed by capillary electrophoresis and CBC red cell parameters were reviewed. An abnormal hemoglobin was identified. Additional tests were therefore performed (high performance liquid chromatography (HPLC) and sickle solubility). Results consistent with sickle cell trait. LAB 12444-8(LOINC ) Hgb Fract Bld-Imp Reviewed by Bonita Evans M.D., Ph.D Performed By: #### [id number], SCKSALEISHA, HGBELEV, HGBPLC #### [facility] CLIA [id number] [address] [place] [address] OF [facility] HGB ELECTROPHORESIS FOR EVAL (LAB ORDER) Collected: 07/31/2024 11:13 AM Status: F Source: [facility] Order Comment: Specimen Type : BLOOD SPECIMEN Ordering Facility: [facility] Address: [address] [place] [address] TYPE CODE TESTS RESULT OUT OF RANGE REFERENCE UNITS LAB 4546-8(LOINC) Hgb A MFr Bld 57.8 Low 96.2-98.0 % LAB 4551-8(LOINC) Hgb A2 MFr Bld 2.9 2.0-3.1 % LAB 80942-1(LOINC) Hgb XXX MFr Bld Elph No abnormal hemoglobin identified. Result Comment: Abnormal hem oglobin present. Hb S = 39.3%. Performed By: #### [id number], SCKSOL, HGBELEV, HGBPLC #### [facility] CLIA [id number] [address] [place] [address] OF [place] SICKLE PREP SCREEN Collected: 11:13 AM Status: F Source: [facility] Comment: Specimen Type : BLOOD SPECIMEN Ordering Facility: [facility] Address: [address] [place] [address] TYPE CODE TESTS RESULT OUT OF RANGE REFERENCE UNITS LAB 6864-3(LOINC) Hgb S Bld Ql Sweta Positive Abnormal Negative Performed By: #### [id number], SCKSOL, HGBELEV, HGBPLC #### [facility] CLIA [id number] [address] [place] [address] OF [place] HB VARIANT HPLC Collected: 07/31/2024 11:13 AM Statu s: F Source: [facility] Comment: Specimen Type : BLOOD SPECIMEN Ordering Facility: [facility] Address: [address] [place] [address] TYPE CODE TESTS RESULT OUT OF RANGE REFERENCE UNITS LAB 47990-5(LOINC) Hgb HPLC + electrophoresis Pnl Bld Elution with the retention time of Hemoglobin A, Hemoglobin S and trace amounts of Hemoglobin F Performed By: #### [id number], SCKSOL, HGBELEV, HGBPLC #### [facility] CLIA [id number] [address] [place] [address] OF [place] RBC PARAMETERS FOR HB ID Collected: 11:13 AM Status: F Source: [facility] Comment: Specimen Type : BLOOD SPECIMEN Ordering Facility: [facility] Address: [address] [place] [address] TYPE CODE TESTS RESULT OUT OF RANGE REFERENCE UNITS LAB 789-8(LOINC) RBC # Bld Auto 4.21 3.90-5.20 m/uL LAB 718-7(LOINC) Hgb Bld-mCnc 12.5 11.5-15.5 g/dL LAB 4544-3(LOINC) Hct VFr Bld Auto 35.4 Low 36.0-46.0 % LAB 787-2(LOINC) MCV RBC Auto 84.1 80.0-100.0 fL LAB 785-6([facility]) MCH RBC Qn Auto 29.7 26.0-34.0 pg LAB 786-4([facility]) MCHC RBC Auto-mCnc 35.3 30.5-36.0 g/dL LAB 67277-6([facility]) RDW RBC-Rto 11.9 11.5-15.0 % Performed By: #### [id number] # ### [facility] CLIA [id number] [address] [place] [address] CBC W AUTO DIFF BLD Collected: 07/31/2024 11:13 AM S tatus: F Source: [facility] Order Comment: Specimen Type : BLOOD SPECIMEN Ordering Facility: [facility] Address: [address] [place] [address] TYPE CODE TESTS RESULT OUT OF RANGE REFERENCE UNITS LAB 6690-2([facility]) WBC # Bld Auto 11.68 High 3.70-11.00 k/uL LAB 789-8([facility]) RBC # Bld Auto 4.25 3.90-5.20 m/ uL LAB 718-7([facility]) Hgb Bld-mCnc 12.5 11.5-15.5 g/dL LAB 4544-3([facility]) Hct VFr Bld Auto 35.1 Low 36.0-46.0 % LAB 787-2([facility]) MCV RBC Auto 82.6 80.0-100.0 fL LAB 785-6([facility]) MCH RBC Qn Auto 29.4 26.0-34.0 p g LAB 786-4([facility]) MCHC RBC Auto-mCnc 35.6 30.5-36.0 g/dL LAB 02461-5([facility]) RDW RBC-Rto 11.9 11.5-15.0 % LAB 777-3([facility]) Platelet # Bld Auto 250 150-400 k/uL LAB 05930-5([facility]) PMV Bld Auto 9.7 9.0-12.7 fL LAB 770-8([facility]) Neutrophils/leuk NFr Bld Auto 70.5 % LAB 751-8([facility]) Neutrophils # Bld Auto 8.23 High 1.45-7.50 [...] # Bld Auto 0.04 <0.11 k/uL LAB 47604-4([facility]) Imm Granulocytes/david k NFr Bld Auto 0.4 % LAB 24002-0([facility]) Imm Granulocytes # Bld Auto 0.05 <0.10 k/uL LAB 16149-9([facility]) nRBC/100 WBC Bld-Rto 0.0 /100 WBC LAB 771-6([facility]) nRBC # Bld Auto <0.01 <0.01 k/u L LAB 53540-3([facility]) Differential method Bld Auto Performed By: #### 10758-0 # ### [facility] CLIA [id number] [address] [place] [address] [place] DEPRECATED HGB A1C BLD Collected: 07/31 11:13 AM Status: F Source: [facility] Order Comment: Specimen Type : BLOOD SPECIMEN Ordering Facility: [facility] Address: [address] [place] [address] TYPE CODE TESTS RESULT OUT OF RANGE REFERENCE UNITS LAB 4548-4([facility]) HbA1c MFr Bld 5.2 4.3-5.6 % Result [...] consider ordering the hemoglobin evaluation cascade test. [place] [employer] guidelines indicate that patients with HgbA1c in the range 5.7-6.4% are at increased risk for development of diabetes, and intervention by lifestyle modification may be beneficial. HgbA1c greater or equal to 6.5% is considered diagnostic of diabetes. LAB 37066-1(LOINC) Est. average glucose Bld gHb Est-mCnc 103 mg/dL Result Comment: eAG: (Estima patience average glucose) is a calculated value from HgbA1c and is in store marketing representative of the average blood glucose level in the last 2-3 month period. Performed By: #### 08839-7 # ### [facility] CLIA [id number] [address] [place] [address] OF [place] [id number] PLUS Collected: 07/31/2024 11:13 AM Statu s: F Source: [facility] Order Comment: Specimen Type : BLOOD SPECIMEN Ordering Facility: [facility] Address: [address] [place] [address] TYPE CODE TESTS RESULT OUT OF RANGE REFERENCE UNITS LAB 49885-9(LOINC ) Fet Chr 21 Ts Plas.cfDNA Ql Negative LAB 95571-5(LOINC ) Fet Ts 18 risk WBC.DNA+cfDNA Ql Negative LAB 63458-4(LOINC ) Fet Ts 13 risk Plas.cfDNA Ql Negative LAB 74448-5(LOINC ) Fet sex Plas.cfDNA Dosage cfDNA Comment Result Comment: Consistent w ith Female LAB 49407-6(LOINC ) Fet Ms X risk WBC.DNA+cfDNA Ql Not Detected LAB 73946-6(LOINC ) Fet X + Y aneup risk Plas.cfDNA Seq-Imp Not Detected Result Comment: Not Detected Not Detected LAB 70685-7(LOINC ) Fet 13+18+21+X+Y aneup Plas.cfDNA Negative LAB SPPV POSITIVE PREDICTIVE VALUE N/A LAB NEGPREVA NEGATIVE PREDICTIVE VALUE Note Result Comment: The Negative Predictive Value (NPV) for trisomy 21, 18, and 13 is greater than 99%. The NPV for SCA and ESS cannot be calculated as SCA and ESS are only reported when an abnormality is detected. LAB 42938-1(LOINC ) cfDNA.fet/cfDNA.to darya SFr Fetus 25% LAB 86177-2([facility] ) GA Est from conception date Hodge LAB SGAG9 GESTATIONALAGE A GE > OR = 9W Yes LAB 02470-4([facility] ) internet marketing director name Provider Comment Result Comment: This specime n showed an expected representation of chromosome 21, 18 and 13 material. Clinical correlation is suggested. Comment Jorge Padilla MD, PhD, Director, [employer] LAB 21213-7([facility] ) Ref lab test method Comment Result [...] trisomy of chromosomes 16 and 22. LAB 46199-2([facility] ) Laboratory comment Report Comment Result Comment: [...] gestations has not yet been validated. LAB 82957-4([facility] ) Test performance info Spec Comment Result Comment: The performa nce characteristics of the MaterniT(R) 21 PLUS laboratory-developed test (LDT) have been determined in a clinical validation study with women at increased risk for chromosomal aneuploidy.[1-4] LAB [facility] PERFORMANCE CHARACTERISTICS Note Result Comment: [...] ! ! ! * As reported in [facility] database nstd37 [https://www.ncbi.nlm.nih.gov/dbvar/studies/nstd37/ ] # Estimated Sensitivity. [...] example: Lovenox(R), Xaparin(R), Clexane(R) and Fragmin(R)). LAB 8251-1([facility]) Service Cmnt-Imp Comment Result Comment: See Notes [employer]. is a subsidiary of [employer], using the brand [employer]. This test was developed and its performance characteristics determined by [employer]. It has not been cleared or approved by the Food and Drug Administration. This laboratory is certified under the Clinical Laboratory Improvement Amendments (CLIA) as qualified to perform high complexity clinical laboratory testing and accredited by the College of [place] [employer] (CAP). If there is future clinical need for adding MaterniT GENOME testing, this specimen will be available until term. [facility] samples will not be retained beyond 60 days. [facility] patients will have to send a new sample for re-sequencing ([facility] Test Code: 091911). LAB 78467-3([facility] ) Citation Ref Lab Test Comment Result Comment: 1. Daily TIRADO, et al. Jadyn Med. 2012;14(3):296-305. 2. Leonard CHUNG et al. Prenat Diag. 2013;33(6):591-597. 3. Phoenix C, et al. Clin Chem. 2015 Apr;61(4):608-616. 4. Daily TIRADO, et al. Jadyn Med. 2011;13(11):913-920. 5. ACOG/SMFM Practice Bulletin No. 226, Feb 2020. Performed By: #### MAT21 ### # [facility] [place] [id number] [address] [place] [address] HCV AB SER QL Collected: 5 11:13 AM Status: F Source: [facility] Comment: Specimen Type : BLOOD SPECIMEN Ordering Facility: [facility] Address: [address] [place] [address] TYPE CODE TESTS RESULT OUT OF RANGE REFERENCE UNITS LAB 49599-3([facility]) HCV Ab Ser Ql Negative Negative Result Comment: The result s uggests no evidence of infection with Hepatitis C virus. Should recent infection be suspected, repeat testing may be considered 4-6 weeks after this draw. Performed By: #### 44215-5 # ### [facility] CLIA [id number] [address] [place] [address] [place] RUBELLA IGG ANTIBODY Collected: 025 11:13 AM Status: F Source: [facility] Order Comment: Specimen Type : BLOOD SPECIMEN Ordering Facility: [facility] Address: [address] [place] [address] TYPE CODE TESTS RESULT OUT OF RANGE REFERENCE UNITS LAB RUBGQL RUBELLA IGG AB, QUAL Positive Positive Result Comment: The result s uggests recent or past exposure to Rubella virus or history of Rubella vaccination. Positive result may also be seen due to presence of passively-transferred antibodies. Please correlate with patient's history. Performed By: #### RUBIGG ## ## [facility] CLIA [id number] [address] [place] [address] CNPN Observed: 07/21/2024 12:00 AM Status: COMPLETED Source: [facility] Telephone (OBGYWM) MARLON GRANGER ([id number]) 1995 F Date Time Provider Department 07/21/24 [...] Date Reviewed: 06/26/2024 Reviewed by: James Zamora APRN.EDUCATION ANALYST - Fully Assessed Reason for Visit: [...] Observed: 06/30/2024 12:00 AM Status: COMPLETED Source: [facility] Telephone (OGFVWE) MARLON GRANGER ([id number]) 1995 F Date Time Provider Department 06/30/24 NURSE COMMUNICATION SIGNALS INTELL[facility] During your visit today, we [...] Date Reviewed: 06/26/2024 Reviewed by: James Zamora APRN.EDUCATION ANALYST - Fully Assessed Reason for Visit: [...] NAAT Collected: 10:54 AM Status: F Source: [facility] Order Comment: Specimen Type : SWAB Ordering Facility: [facility] Address: [address] [place] [address] TYPE CODE TESTS RESULT OUT OF RANGE REFERENCE UNITS LAB 20984-3([facility] ) Shannan DNA Vag Ql RC+probe Detected Abnormal Not detected Result Comment: The Shannan species group target includes C. albicans, C. tropicalis, C. parapsilosis, and C. dubliniensis. LAB 39413-1(LOINC ) C glabrata RNA Vag Ql RC+probe Not detected Not detected LAB 79959-9([facility] ) T vaginalis DNA Spec Ql RC+probe Not detected Not detected Performed By: #### CVTV #### [facility] CLIA [id number] [address] [place] [address] [place] [address] [place] PAP TEST Collected: 10:54 AM Status: F Source: [facility] Order Comment: Specimen Type : FLUID SPECIMEN Ordering Facility: [facility] Address: [address] [place] [address] TYPE CODE TESTS RESULT OUT OF RANGE REFERENCE UNITS PATHOLOGY [id number] CASE REPORT Result Comment: Gynecologic Cytology Report Case: [id number] Authorizing Provider: James Zamora APRN.EDUCATION ANALYST Collected: 06/26/2024 10:54 AM Ordering Location: OB/Gynecology Received: 06/26/2024 12:02 PM First Screen: Pat Jasmine Specimen: Pap Test, ThinPrep, Cervix PATHOLOGY [id number] ADEQUACY Satisfactory for interpretation . PATHOLOGY [id number] INTERPRETATION, CYTOLOGY, TOURIST ESCORT Result Comment: Negative for intraepithelial lesion or malignancy. at 1135 EST PATHOLOGY [id number] CYTOLOGY PAP OTHER INTERPRETATION Predominance of coccobacilli consistent with shift in vaginal kelvin. PATHOLOGY [id number] CLINICAL HISTORY, CYTOLOGY, TOURIST ESCORT (Indicate Weeks) PATHOLOGY [id number] LMP 05/09/2024 PATHOLOGY PAPDC PAP DISCLAIMER COMMENT The Pap Smear is a screening test for cervical cancer. False negative results occur with all screening tests, emphasizing the need for rescreening at recommended intervals, and clinical correlation. PATHOLOGY PAPIC PAP INTEGRITY SPECIALIST COMMENT This specimen has been analyzed by the ThinPrep Imaging System, an automated imaging and review system, which assists the laboratory in evaluating cells on ThinPrep Pap tests. Following automated imaging, selected guerra from every slide are reviewed by a cytotechnologi . PATHOLOGY FPLAB FINAL PERFORMING LAB Result Comment: Technical co mponent, bar pilot screening performed at [facility], [address] [place] [address] CLIA# [id number] Diagnostic interpretation performed at [facility], [address] [place], [place] [address] CLIA# [id number] Factory Maintenance Manager: Khadar Camacho M.D. Performed By: #### [id number] # ### [facility] CLIA [id number] [address] [place] [address] [place] BACTERIA UR CULT Observed: 06/26/2024 10:54 AM Status: F Source: [facility] ORGANISM ID: 1 10,000 -<50,000 CFU/ml Normal urogenital kelvin Streptococcus agalactiae (Group B streptococcus) was identified in this specimen, which is clinically relevant if the individual is . Performed By: #### 630-4 ### # [facility] CLIA [id number] [address] [place] [address] STATES [place] C TRACH+GC DNA SPEC QL RC+PROBE Collected: 06/26/2024 10:54 AM Status: F Source: [facility] Order Comment: Specimen Type : SWAB Ordering Facility: [facility] Address: [address] [place] [address] TYPE CODE TESTS RESULT OUT OF RANGE REFERENCE UNITS LAB 47749-1(LOINC) N gonorrhoea rRNA Spec Ql RC+probe Not detected Not detected LAB 01523-8(LOINC) C trach rRNA Spec Ql RC+probe Not detected Not detected Performed By: #### BVAMP, 36 902-5 #### [facility] CLIA [id number] [address] [place] [address] [place] BACTERIAL VAGINOSIS NAAT Collected: 10:54 AM Status: F Source: [facility] Order Comment: Specimen Type : SWAB Ordering Facility: [facility] Address: [address] [place] [address] TYPE CODE TESTS RESULT OUT OF RANGE REFERENCE UNITS LAB 07406-9(LOINC) BV bacteria rRNA Vag Ql RC+probe Detected Abnormal Not detected Performed By: #### BVAMP, 36 902-5 #### [facility] CLIA [id number] [address] [place] [address] [place] PROGRESS Observed: 06/26/2024 9:32 AM Status: COMPLETED [facility]: [id number] Author: JAMES ZAMORA APRN.EDUCATION ANALYST Service: ? Author Type: Nurse Practitioner [...] the following (please check all that apply)? 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 As applicable, any other physician, advance practice provider, medical student, or other health professional student that will be observing or involved in the sensitive examination for educational or training purposes was discussed with the Patient or Authorized Special Warfare Combatant Crewman. The Patient or Authorized Special Warfare Combatant Crewman has agreed to proceed with the sensitive [...] Your guide to a health and the Weapons Officer. Discussed hemoglobin electrophoresis. Patient: Accepts Patient has penicillin allergy, plan for allergy testing. Reviewed midwifery and air route controller services that are available. 2) Screening: Hemoglobin [...] weeks): [] Consent [] Contraception [] Senior Net Developer Architect [] TeamBirth handout Third trimester (36-40 weeks): [...] Observed: 06/19/2024 12:00 AM Status: COMPLETED Source: [facility] MARLON GRANG[facility] ([id number]) 1995 F Date Time Provider Department 06/19/24 [facility]OS [facility] During your visit today, we recorded [...] Observed: 06/18/2024 12:00 AM Status: COMPLETED Source: [facility] Telephone (WSTR) MARLON GRANGER ([id number]) 1995 F Date Time Provider Department 06/18/24 GHISLAINE GRANADOS [facility] During your visit today, we recorded the following information about you: Ghislaine Granados PA 06/18/2024 7:17 AM Signed Please contact patient and let her know her yeast swab came back positive. It appears she has side effects with Monistat. I have sent clotrimazole topical to pharmacy to try instead. If she is unable to tolerate this, she needs to follow-up with her skidder lever operator. We are unable to do oral medication [...] Observed: 06/18/2024 12:00 AM Status: COMPLETED Source: [facility] Telephone (OBGYWM) MARLON GRANGER ([id number]) 1995 F Date Time Provider Department 06/18/24 JOSE VILLAFANA [facility] During your visit today, we recorded the following information about you: rGisel Humphries, RN 06/18/2024 4:57 PM Signed Patient seen at [facility] yesterday. LMP 05/09. Approximately 5w5d. She [...] Fully Assessed Reason for Visit: Patient Question [9667] Prescriptions as of 06/19/2024 - clotrimazole (LOTRIMIN) 1 % vaginal cream Use 1 Applicatorful vaginally once daily for 7 days. Problem List As Of Date: 06/18/2024 (None) Encounter Status:Closed by KATE SONG on 06/19/24 BACTERIA UR CULT Observed: 06/17/2024 4:32 PM Status: C Source: [facility] CULTURE, URINE: Mixed microbiota, including predominantly: ORGANISM [...] >1 Performed By: #### 630-4 ### # [facility] CLIA [id number] [address] [place], [place] [address] [address] [place] C TRACH+GC DNA SPEC QL RC+PROBE Collected: 06/17/2024 4:32 PM Status: F Source: [facility] Order Comment: Specimen Type : SWAB Ordering Facility: [facility] Address: [address] [place] [address] TYPE CODE TESTS RESULT OUT OF RANGE REFERENCE UNITS LAB 96432-1(LOINC) N gonorrhoea rRNA Spec Ql RC+probe Not detected Not detected LAB 94110-4([facility]) C trach rRNA Spec Ql RC+probe Not detected Not detected Performed By: #### 95680-8, BVAMP #### [facility] CLIA [id number] [address] [place] [address] [place] BACTERIAL VAGINOSIS NAAT Collected: 09/2024 4:32 PM Status: F Source: [facility] Order Comment: Specimen Type : SWAB Ordering Facility: [facility] Address: [address] [place] [address] TYPE CODE TESTS RESULT OUT OF RANGE REFERENCE UNITS LAB 70979-5([facility]) BV bacteria rRNA Vag Ql RC+probe Not detected Not detected Performed By: #### 16257-6, BVAMP #### [facility] CLIA [id number] [address] [place] [address] [place] SHANNAN/TRICHOMONAS NAAT Collected: 09/2024 4:32 PM Status: F Source: [facility] Order Comment: Specimen Type : SWAB Ordering Facility: [facility] Address: [address] [place] [address] TYPE CODE TESTS RESULT OUT OF RANGE REFERENCE UNITS LAB 06130-8([facility] ) Shannan DNA Vag Ql RC+probe Detected Abnormal Not detected Result Comment: The Shannan species group target includes C. albicans, C. tropicalis, C. parapsilosis, and C. dubliniensis. LAB 20257-8([facility] ) C glabrata RNA Vag Ql RC+probe Not detected Not detected LAB 76526-5([facility] ) T vaginalis DNA Spec Ql RC+probe Not detected Not detected Performed By: #### CVTV #### [facility] CLIA [id number] [address] [place] [address] [place] PROGRESS Observed: 06/17/2024 3:46 PM Status: COMPLETED Source: [facility] HNO ID: [id number] Author: JOANN MARIE APRN.EDUCATION ANALYST Service: ? Author Type: Nurse Practitioner [...] nondistended Vaginal discharge noted, white in color. Aitchbone Breaker present. PAST MEDICAL HISTORY Diagnosis Date NEGATIVE [...] was instructed to get set up with TOURIST ESCORT Participation of a fellow, resident, medical student, or advanced practice provider student in performing the sensitive examination was discussed with the patient or authorized in store marketing representative. The patient or authorized in store marketing representative has agreed to proceed with the [...] Observed: 06/17/2024 3:45 PM Status: COMPLETED Source: [facility] Office Visit (UCW[facility]) ELKINMARLON Payton Louie ([id number]) 1995 F Date Time Provider Department 06/17/24 [...] nondistended Vaginal discharge noted, white in color. Aitchbone Breaker present. PAST MEDICAL HISTORY Diagnosis Date NEGATIVE [...] was instructed to get set up with TOURIST ESCORT Participation of a fellow, resident, medical student, or advanced practice provider student in performing the sensitive examination was discussed with the patient or authorized in store marketing representative. The patient or authorized in store marketing representative has agreed to proceed with the [...] [N92.6] Order(s):BACTERIAL VAGINOSIS NAAT [SQBVAMP] Order #: [id number]. #:[id number] SHANNAN/TRICHOMONAS NAAT [SQCVTV] Order #: [id number]. #:[id number] GONORRHEA/CHLAMYDIA NAAT [SQGCCT] Order #: [id number]. #:[id number] UA DIP, URINE (POC) [[id number]] Order #: [id number]. #:[id number] BACTERIAL CULTURE, URINE [SQURCUL] Order #: [id number]. #:[id number] HCG QUAL UR B/O [[id number]] Order #: [id number] UA DIP,URINE HCG (POC) [[id number]] Order #: [id number]. #:[id number] BACTERIAL CULTURE, URINE [SQURCUL] Order #: [id number]. #:[id number] Problem List As Of Date: 06/17/2024 (None) Encounter Status:Closed by JOANN MARIE on 06/17/24 BACTERIAL VAGINOSIS NAAT Collected: 9:38 AM Status: F Source: [facility] Order Comment: Specimen Type : SWAB Ordering Facility: [facility] Address: [address] [place] [address] TYPE CODE TESTS RESULT OUT OF RANGE REFERENCE UNITS LAB 84084-3(LOINC) BV bacteria rRNA Vag Ql RC+probe Not detected Not detected Performed By: #### CVTV, BVA MP #### [facility] CLIA [id number] [address] [place], [place] [address]K [address] STATES OF [facility] SHANNAN/TRICHOMONAS NAAT Collected: 9:38 AM Status: F Source: [facility] Order Comment: Specimen Type : SWAB Ordering Facility: [facility] Address: [address] [place] [address] TYPE CODE TESTS RESULT OUT OF RANGE REFERENCE UNITS LAB 61684-0(LOINC ) Shannan DNA Vag Ql RC+probe Detected Abnormal Not detected Result Comment: The Shannan species group target includes C. albicans, C. tropicalis, C. parapsilosis, and C. dubliniensis. LAB 71276-8([facility] ) C glabrata RNA Vag Ql RC+probe Not detected Not detected LAB 71842-3([facility] ) T vaginalis DNA Spec Ql RC+probe Not detected Not detected Performed By: #### CVTV, BVA MP #### [facility] CLIA [id number] [address] [place] [address] OF [facility] UROGENITAL UREAPLASMA AND MYCOPLASMA SPECIES BY PCR, FOR GENITAL, RECTAL, URINE SAMPLES Collected: 05/07/2024 9:38 AM Status: F Source: [facility] Order Comment: Specimen Type : SWAB Ordering Facility: [facility] Address: [address] [place] [address] TYPE CODE TESTS RESULT OUT OF RANGE [...] developed and its performance characteristics determined by [employer]. It has not been cleared or approved by the US Food and Drug Administration. This test was performed in a CLIA certified laboratory and is intended for clinical purposes. Performed By: [facility] [address] [place] [address] Factory Maintenance Manager: Srinivasa Floyd MD, PhD CLIA Number: [id number] Performed By: #### URMPCR ## ## [facility] CLIA [id number] [address] [place] [address] CNOV Observed: 05/07/2024 9:15 AM Status: COMPLETED Source: [facility] Office Visit (OBGYWM) MARLON GRANGER ([id number]) 1995 F Date Time Provider Department 05/07/24 9:15 AM JAMES ZAMORA During your visit today, we recorded the following information about you: Blood pressure Weight Last Period 118/74 55.1 kg 04/07/24 James Zamora APRN.EDUCATION ANALYST 05/07/2024 9:43 AM Signed Patient declined digital media designer. Marlon Granger is a 29 year old [...] L1 SAB0 IAB0 Ectopic0 Multiple0 Live Births0 Occupational Health And Safety Officer History LMP: 03/04/2024 (Approximate) Age at Menarche: Age at First : Age at Menopause: Occupational Health And Safety Officer History Comments: Sexual Activity: Yes; Male Contraception: [...] Assessed 04/03/2024 REVIEW OF SYSTEMS Expanded ROS: TOURIST ESCORT: + vaginal itching, discharge Allergies and current medication updated:Yes SENSITIVE EXAM: The sensitive examination was discussed with the Patient or Patient's Authorized Special Warfare Combatant Crewman. As applicable, any other physician, advance practice provider, medical student, or other health professional student that will be observing or involved in the sensitive examination for educational or training purposes was discussed with the Patient or Authorized Special Warfare Combatant Crewman. The Patient or Authorized Special Warfare Combatant Crewman has agreed to proceed with the sensitive examination. (Sensitive examination includes inspection and/or palpation of the breasts, pelvis, prostate and anorectal regions). EXAM: BP 118/74 Wt 121 lb 6.4 oz (55.1kg) LMP 04/07/2024 GENERAL: pleasant, female in no apparent distress HEENT: Normocephalic, atraumatic, mucus membranes moist, and no lesions CHEST: Normal inspiratory effort PELVIC: external genitalia normal, normal Bartholin's glands, urethra, [place]'s glands, no vulvar lesions, no cervical lesions, [...] annual or sooner as needed. James Zamora APRN.EDUCATION ANALYST Medical Decision Making: Problems: Low: Acute, uncomplicated illness or injury Data: Unique test(s) ordered: 3+ Risk: Low: Low risk from testing/treatment Moderate: Drug management Medical Decision Making Level: 4 - Moderate Allergies As of Date: 05/07/2024 Noted Allergy Reaction MOXIFLOXACIN 04/20/2024 5 - Intolerance Comments: Numbness PENICILLINS 06/07/2020 14 - Other: See Comments Date Reviewed: 05/07/2024 Reviewed by: James Zamora APRN.EDUCATION ANALYST - Fully Assessed Reason for Visit: Problem Visit [Other] Primary Visit Diagnosis:Vaginal itching [N89.8] Other Visit Diagnosis:Vaginal discharge [N89.8] Order(s):SHANNAN/TRICHOMONAS NAAT [SQCVTV] Order #: [id number]. #:[id number] BACTERIAL VAGINOSIS NAAT [SQBVAMP] Order #: [id number]. #:[id number] fluconazole (DIFLUCAN) 150 mg tabletTake 1 tablet by mouth one time only for 1 dose.Disp: 1 tabletRfl: 0 UROGENITAL UREAPLASMA AND MYCOPLASMA SPECIES BY PCR, FOR GENITAL, RECTAL, URINE SAMPLES [SQURMPCR] Order #: [id number]. #:[id number] Prescriptions as of 05/07/2024 - fluconazole (DIFLUCAN) [...] Observed: 05/07/2024 8:59 AM Status: COMPLETED Source: [facility] HNO ID: [id number] Author: JAMES ZAMORA APRN.EDUCATION ANALYST Service: ? Author Type: Nurse Practitioner Type: Progress Notes Filed: 05/07/2024 09:43 Note Text: Patient declined digital media designer. Marlon Granger is a 29 year old [...] L1 SAB0 IAB0 Ectopic0 Multiple0 Live Births0 Occupational Health And Safety Officer History LMP: 03/04/2024 (Approximate) Age at Menarche: Age at First : Age at Menopause: Occupational Health And Safety Officer History Comments: Sexual Activity: Yes; Male Contraception: [...] Assessed 04/03/2024 REVIEW OF SYSTEMS Expanded ROS: TOURIST ESCORT: + vaginal itching, discharge Allergies and current medication updated:Yes SENSITIVE EXAM: The sensitive examination was discussed with the Patient or Patient's Authorized Special Warfare Combatant Crewman. As applicable, any other physician, advance practice provider, medical student, or other health professional student that will be observing or involved in the sensitive examination for educational or training purposes was discussed with the Patient or Authorized Special Warfare Combatant Crewman. The Patient or Authorized Special Warfare Combatant Crewman has agreed to proceed with the sensitive examination. (Sensitive examination includes inspection and/or palpation of the breasts, pelvis, prostate and anorectal regions). EXAM: BP 118/74 Wt 121 lb 6.4 oz (55.1kg) LMP 04/07/2024 GENERAL: pleasant, female in no apparent distress HEENT: Normocephalic, atraumatic, mucus membranes moist, and no lesions CHEST: Normal inspiratory effort PELVIC: external genitalia normal, normal Bartholin's glands, urethra, [place]'s glands, no vulvar lesions, no cervical lesions, [...] recent Diflucan use - [facility] RTO for annual or sooner as needed. James Zamora APRN.EDUCATION ANALYST Medical Decision Making: Problems: Low: Acute, uncomplicated illness or injury Data: Unique test(s) ordered: 3+ Risk: Low: Low risk from testing/treatment Moderate: Drug management Medical Decision Making Level: 4 - Moderate COLLEENN Observed: 04/20/2024 12:00 AM Status: COMPLETED Source: [facility] Telephone (OBVizeraLabsWM) MARLON GRANGER ([id number]) 1995 F Date Time Provider Department 04/20/24 JAMES ZAMORA During your visit today, we recorded the following information about you: Nancy Harris, CHICHO 04/20/2024 10:35 AM Signed Patient calling regarding symptoms she had since starting Moxifloxacin. She took her 2nd dose of it and then experienced what felt like numbness over entire body. [place] like she couldn't move and felt like she was in a daze. Feeling slightly better right now. 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 She doesn't know if she was so [...] JAMES ZAMORA Pharmacy Information Pharmacy Address Telephone [address] [address] Allergies As of Date: 04/20/2024 [...] Observed: 04/08/2024 12:00 AM Status: COMPLETED Source: [facility] Telephone (AltheosWM) MARLON GRANGER ([id number]) 1995 F Date Time Provider Department 04/08/24 JAMES ZAMORA During your visit today, we recorded the following information about you: Jailyn Trotter RN 04/08/2024 3:58 PM Signed Reviewed with patient as Hark message was not viewed. Pt voiced understanding. Jailyn Trotter RN Allergies As of Date: 04/08/2024 Noted Allergy Reaction PENICILLINS 06/07/2020 14 - Other: See Comments Date Reviewed: 04/03/2024 Reviewed by: James Zamora APRN.EDUCATION ANALYST - Fully Assessed Reason for Visit: [...] Observed: 04/03/2024 2:46 PM Status: F Source: [facility] ORGANISM ID: 1 10,000 -<50,000 CFU/ml Normal urogenital kelvin Performed By: #### 630-4 ### # [facility] CLIA [id number] [address] [place], [place] [address] [address] [place] OF [facility] UROGENITAL UREAPLASMA AND MYCOPLASMA SPECIES BY PCR, FOR GENITAL, RECTAL, URINE SAMPLES Collected: 04/03/2024 8:17 AM Status: F Source: [facility] Order Comment: Specimen Type : SWAB Ordering Facility: [facility] Address: [address] [place] [address] TYPE CODE TESTS RESULT OUT OF RANGE [...] developed and its performance characteristics determined by [employer]. It has not been cleared or approved by the US Food and Drug Administration. This test was performed in a CLIA certified laboratory and is intended for clinical purposes. Performed By: [facility] [address] [place] [address] Factory Maintenance Manager: Srinivasa Floyd MD, PhD CLIA Number: [id number] Performed By: #### URMP ## ## [facility] CLIA [id number] [address] [place] [address] BACTERIAL VAGINOSIS NAAT Collected: 8:17 AM Status: F Source: [facility] Comment: Specimen Type : SWAB Ordering Facility: [facility] Address: [address] [place] [address] TYPE CODE TESTS RESULT OUT OF RANGE REFERENCE UNITS LAB 57429-1(INC) BV bacteria rRNA Vag Ql RC+probe Not detected Not detected Performed By: #### BVAMP, 36 902-5 #### [facility] CLIA [id number] [address] [place] [address] [place] C TRACH+GC DNA SPEC QL RC+PROBE Collected: 04/03/2024 8:17 AM Status: F Source: [facility] Comment: Specimen Type : SWAB Ordering Facility: [facility] Address: [address] [place] [address] TYPE CODE TESTS RESULT OUT OF RANGE REFERENCE UNITS LAB 62119-5(LOINC) N gonorrhoea rRNA Spec Ql RC+probe Not detected Not detected LAB 59402-7(LOINC) C trach rRNA Spec Ql RC+probe Not detected Not detected Performed By: #### BVAMP, 36 902-5 #### [facility] CLIA [id number] [address] [place] [address] [place] SHANNAN/TRICHOMONAS NAAT Collected: 8:17 AM Status: F Source: [facility] Comment: Specimen Type : SWAB Ordering Facility: [facility] Address: [address] [place] [address] TYPE CODE TESTS RESULT OUT OF RANGE REFERENCE UNITS LAB 38137-[facility] Shannan DNA Vag Ql RC+probe Not detected Not detected Result Comment: The Shannan species group target includes C. albicans, C. tropicalis, C. parapsilosis, and C. dubliniensis. LAB 34125-2(LOINC ) C glabrata RNA Vag Ql RC+probe Not detected Not detected LAB 55803-8(LOINC ) T vaginalis DNA Spec Ql RC+probe Not detected Not detected Performed By: #### CVTV #### [facility] CLIA [id number] [address] [facility] [address] CNOV Observed: 04/03/2024 7:45 AM Status: COMPLETED Source: [facility] Office Visit (OBGYWM) MARLON GRANGER ([id number]) 1995 F Date Time Provider Department 04/03/24 7:45 AM JAMES ZAMORA During your visit today, we recorded the following information about you: Blood pressure Weight Last Period 110/62 54.4 kg 03/04/24 James Zamora APRN.[facility] 04/03/2024 8:16 AM Addendum Marlon Palma Elkin [...] OB History No obstetric history on file. Occupational Health And Safety Officer History LMP: 02/05/2024 (Approximate) Age at Menarche: Age at First : Age at Menopause: Occupational Health And Safety Officer History Comments: Sexual Activity: No sexual activity [...] Assessed 02/14/2024 REVIEW OF SYSTEMS Expanded ROS: TOURIST ESCORT: + reoccurring BV Allergies and current medication updated:Yes SENSITIVE EXAM: The sensitive examination was discussed with the Patient or Patient's Authorized Special Warfare Combatant Crewman. As applicable, any other physician, advance practice provider, medical student, or other health professional student that will be observing or involved in the sensitive examination for educational or training purposes was discussed with the Patient or Authorized Special Warfare Combatant Crewman. The Patient or Authorized Special Warfare Combatant Crewman has agreed to proceed with the sensitive examination. (Sensitive examination includes inspection and/or palpation of the breasts, pelvis, prostate and anorectal regions). EXAM: BP 110/62 Wt 120 lb (54.4kg) LMP 03/04/2024 GENERAL: pleasant, female in no apparent distress HEENT: Normocephalic, atraumatic, mucus membranes moist, and no lesions CHEST: Normal inspiratory effort PELVIC: external genitalia normal, normal Bartholin's glands, urethra, [place]'s glands, no vulvar lesions, no cervical lesions, [...] 04/03/2024 7:59 AM Signed *Revaree is a [facility] recommended, leading selling vaginal insert for the relief of symptoms of vaginal atrophy and the hindu of the vagina's epithelial lining and pH -- hormone free. In [id number]-of-[id number] clinical trials, Revaree performed as well as [...] Date Reviewed: 04/03/2024 Reviewed by: James Zamora APRN.EDUCATION ANALYST - Fully Assessed Reason for Visit: Vaginal Problem [117] Primary Visit Diagnosis:Bacterial vaginosis [N76.0, B96.89] Other Visit Diagnoses:Vaginal discharge [N89.8] Urinary frequency [R35.0] Order(s):GONORRHEA/CHLAMYDIA NAAT [SQGCCT] Order #: [id number]. #:[id number] SHANNAN/TRICHOMONAS NAAT [SQCVTV] Order #: [id number]. #:[id number] BACTERIAL VAGINOSIS NAAT [SQBVAMP] Order #: [id number]. #:[id number] URINE CULTURE [SQURCUL] Order #: [id number] FUTURE UROGENITAL UREAPLASMA AND MYCOPLASMA SPECIES BY PCR, FOR GENITAL, RECTAL, URINE SAMPLES [SQURMPCR] Order #: [id number]. #:[id number] UA DIP, URINE (POC) [8547908] Order #: [id number]. #:[id number] clindamycin phosphate (CLEOCIN) 2 % vaginal creamUse [...] gRfl: 2 URINE CULTURE [SQURCUL] Order #: [id number]. #:[id number] Prescriptions as of 04/03/2024 - clindamycin phosphate [...] of symptoms of vaginal atrophy and the hindu of the vagina's epithelial lining and pH -- hormone free. In rtzj-fi-dxrx clinical trials, Revaree performed as well as [...] Observed: 04/03/2024 7:23 AM Status: COMPLETED Source: [facility] Author: JAMES ZAMORA APRN.EDUCATION ANALYST Service: ? Author Type: Nurse Practitioner [...] OB History No obstetric history on file. Occupational Health And Safety Officer History LMP: 02/05/2024 (Approximate) Age at Menarche: Age at First : Age at Menopause: Occupational Health And Safety Officer History Comments: Sexual Activity: No sexual activity [...] Assessed 02/14/2024 REVIEW OF SYSTEMS Expanded ROS: TOURIST ESCORT: + reoccurring BV Allergies and current medication updated:Yes SENSITIVE EXAM: The sensitive examination was discussed with the Patient or Patient's Authorized Special Warfare Combatant Crewman. As applicable, any other physician, advance practice provider, medical student, or other health professional student that will be observing or involved in the sensitive examination for educational or training purposes was discussed with the Patient or Authorized Special Warfare Combatant Crewman. The Patient or Authorized Special Warfare Combatant Crewman has agreed to proceed with the sensitive examination. (Sensitive examination includes inspection and/or palpation of the breasts, pelvis, prostate and anorectal regions). EXAM: BP 110/62 Wt 120 lb (54.4kg) LMP 03/04/2024 GENERAL: pleasant, female in no apparent distress HEENT: Normocephalic, atraumatic, mucus membranes moist, and no lesions CHEST: Normal inspiratory effort PELVIC: external genitalia normal, normal Bartholin's glands, urethra, [place]'s glands, no vulvar lesions, no cervical lesions, [...] annual or sooner as needed. James Zamora APRN.EDUCATION ANALYST Medical Decision Making: Problems: Low: Stable chronic illness Data: Unique test result(s) reviewed: 3+ Unique test(s) ordered: 3+ Risk: Low: Low risk from testing/treatment Moderate: Drug management Medical Decision Making Level: 4 - Moderate CNPN Observed: 02/15/2024 12:00 AM Status: COMPLETED Source: [facility] Telephone (WSTR) MARLON GRANGER ([id number]) 1995 F Date Time Provider Department 02/15/24 BHAVNA COTA UCWSTR During your visit today, we recorded the following information about you: Bhavna Cota APRN.EDUCATION ANALYST 02/15/2024 8:31 AM Signed Please advise [...] Collected: 08/2023 11:46 AM Status: F Source: [facility] Comment: Specimen Type : SWAB Ordering Facility: [facility] Address: [address] [place] [address] TYPE CODE TESTS RESULT OUT OF RANGE REFERENCE UNITS LAB 33363-4(LOINC) BV bacteria rRNA Vag Ql RC+probe Positive for bacterial vaginosis Abnormal Negative for bacterial vaginosis Performed By: #### 49959-9, BVAMP #### [facility] CLIA [id number] [address] [place] [address] [place] C TRACH+GC DNA SPEC QL RC+PROBE Collected: 02/14/2024 11:46 AM Status: F Source: [facility] Comment: Specimen Type : SWAB Ordering Facility: [facility] Address: [address] [place] [address] TYPE CODE TESTS RESULT OUT OF RANGE REFERENCE UNITS LAB 36463-5(LOINC ) N gonorrhoea rRNA Spec Ql RC+probe Negative for Neisseria gonorrhoeae by amplification Negative for Neisseria gonorrhoeae by amplification LAB 51200-2(LOINC ) C trach rRNA Spec Ql RC+probe Negative for Chlamydia trachomatis by amplification Negative for Chlamydia trachomatis by amplificaton Performed By: #### 69636-6, BVAMP #### [facility] CLIA [id number] [address] [place] [address] [place] SHANNAN/TRICHOMONAS NAAT Collected: 08/2023 11:46 AM Status: F Source: [facility] Comment: Specimen Type : SWAB Ordering Facility: [facility] Address: [address] [place] [address] TYPE CODE TESTS RESULT OUT OF RANGE REFERENCE UNITS LAB 40512-2([facility]) Shannan DNA Vag Ql RC+probe Positive for Shannan species Abnormal Negative for Shannan species LAB 10689-2([facility]) C glabrata RNA Vag Ql RC+probe Negative for Shannan glabrata Negative for Shannan glabrata LAB 49369-5([facility]) T vaginalis DNA Spec Ql RC+probe Negative for Trichomonas vaginalis by amplification Negative for Trichomonas vaginalis by amplification Performed By: #### CVTV #### [facility] CLIA [id number] [address] [facility] [address] [place] [id number] [place] PROGRESS Observed: 02/14/2024 11:13 AM Status: COMPLETED Source: [facility] HNO ID: [id number] Author: GHISLAINE GRANADOS PA Service: ? Author Type: Physician Sewer Pipe Offbearer Type: Progress Notes Filed: 02/14/2024 11:25 Note Text: This note was created using cinvolveter. Subjective [place] Tata Granger is a 28 [...] Observed: 02/14/2024 11:00 AM Status: COMPLETED Source: [facility] Office Visit (WSTR) MARLON GRANGER ([id number]) 1995 F Date Time Provider Department 02/14/24 11:00 AM GHISLAINE GRANADOSWSTR During your visit today, we recorded the following information about you: Temperature Pulse Respiration Blood pressure 97.9 degrees 90/minute 20/minute 126/85 Weight Last Period 52 kg 02/05/24 Ghislaine Granados PA 02/14/2024 11:25 AM Signed This note was created using Opera Softwareriter. Subjective [place] Tata Granger is a 28 [...] discharge [N89.8] Order(s):SHANNAN/TRICHOMONAS NAAT [SQCVTV] Order #: [id number]. #:[id number] BACTERIAL VAGINOSIS NAAT [SQBVAMP] Order #: [id number]. #:[id number] GONORRHEA/CHLAMYDIA NAAT [SQGCCT] Order #: [id number]. #:[id number] Prescriptions as of 02/14/2024 - ACIDOPHILUS cap Problem List As Of Date: 02/14/2024 (None) Encounter Status:Closed by GHISLAINE GRANADOS on 02/14/24 ALLERGIES DATE TYPE / CODE NAME / CODE REACTION SEVERITY SOURCE 06/17/2024 DRUG INGREDI/[id number] (SNOMED CT) TIOCONAZOLE INTOLERANCE [facility] 04/20/2024 DRUG INGREDI/[id number] (SNOMED CT) MOXIFLOXACIN INTOLERANCE [facility] 06/07/2020 Drug Class/129174058(S NOMED CT) PENICILLINS OTHER: SEE C [facility] ENCOUNTERS ADMIT/DISCHARGE ACCOUNT NUMBER ADMITTING ENCOUNTER CLASS LOC ATION SOURCE 02/01/2025/ 5 [id number] [facility] 01/28/2025/ 5 [id number] [facility] 01/25/2025/ 5 [id number] [facility] 01/18/2025/ 5 [id number] [facility] 01/15/2025/ 5 [id number] [facility] 01/15/2025/ 5 [id number] [facility] 12/31/2024/ 5 [id number] [facility] 12/17/2024/ 5 [id number] [facility] 12/03/2024/ 5 [id number] [facility] 11/20/2024/ 5 [id number] [facility] 11/20/2024/ 5 [id number] [facility] 10/23/2024/ 5 [id number] [facility] 09/25/2024/ 5 [id number] [facility] 09/25/2024/ 5 [id number] [facility] 09/14/2024/ 5 [id number] [facility] 09/14/2024/ 5 [id number] [facility] 08/31/2024/ 5 [id number] [facility] 08/31/2024/ 5 [id number] [facility] 07/31/2024/ 5 [id number] [facility] 07/31/2024/ 5 [id number] [facility] [facility]/ 5 [id number] [facility] 06/26/2024/ 5 [id number] [facility] 06/17/2024/ 5 [id number] [facility] 05/07/2024/ 4 [id number] [facility] 04/03/2024/ 4 [id number] [facility] 02/14/2024/ 4 [id number] [facility] PAYERS ENCOUNTER GUARANTOR PAYER SUBSCRIBER SOURCE 02/01/2025 Primary Insurance:[employer] MEDICAIDPolicy Number: [id number] Date:0252-49-67Vkdr Name:Gayle AMBROSIO: [id number] [place] [address] [facility] 01/28/2025 [facility] MED[facility]Policy Number: [id number] Date:3792-34-41Xmmm Name:Gayle JIB: [id number] [place] [address] [facility] 01/25/2025 Primary Insurance:[employer] MEDICAIDPolicy Number: [id number] Date:1802-63-32Vaxq Name:Gayle JIB: [id number] [place], [place] [address] [place] [address] 01/18/2025 Primary Insurance:[employer] MEDICAIDPolicy Number: [id number] Date:7787-93-86Ahkx Name:Gayle GRANGERDOB: [id number] [place], [place] [address] [place] [address] 01/15/2025 Primary Insurance:[facility] [place]Policy Number: [id number] Date:2081-60-56Fmij Name:Gayle JIB: [id number] [place], [place] [address] [place] [address] 01/15/2025 Primary Insurance:[employer] MEDICAIDPolicy Number: [id number] Date:7354-34-97Xngf Name:Gayle JIB: [id number] [place], [place] [address] [place] [address] 12/31/2024 Primary Insurance:[employer] MEDICAIDPolicy Number: [id number] Date:4099-49-71Cajz Name:Gayle GRANGERDOB: [id number] [place], [place] [address] [place] [address] 12/17/2024 Primary Insurance:[employer] MEDICAIDPolicy Number: [id number] Date:4112-31-60Zlhb Name:Gayle GRANGERDOB: [id number] [place], [place] [address] [place] [address] 12/03/2024 Primary Insurance:[employer] MEDICAIDPolicy Number: [id number] Date:4709-06-81Icrq Name:Gayle JIB: [id number] [place] [address] [facility] 11/20/2024 Primary Insurance:[employer] MEDICAIDPolicy Number: [id number] Date:8727-24-75Ydhd Name:Gayle JIB: [id number] [place] [address] [facility] 11/20/2024 Primary Insurance:[employer] MEDICAIDPolicy Number: [id number] Date:9569-80-05Azkh Name:Gayle JIB: [id number] [place], [place] [address] [place] [address] 10/23/2024 Primary Insurance:[facility] MED[facility]Policy Number: [id number] Date:5984-05-46Buze Name:Gayle JIB: [id number] [place], [place] [address] [place] [address] 09/25/2024 Primary Insurance:[employer] MEDICAIDPolicy Number: [id number] Date:5885-32-48Quag Name:Gayle JIB: [id number] [place], [place] [address] [place] [address] 09/25/2024 Primary Insurance:[employer] MEDICAIDPolicy Number: [id number] Date:9554-64-07Rkxu Name:Gayle JIB: [id number] [place], [place] [address] [place] [address] 09/14/2024 Primary Insurance:[employer] MEDICAIDPolicy Number: [id number] Date:2681-92-55Zrfr Name:Gayle JIB: [id number] [place], [place] [address] [place] [address] 09/14/2024 Primary Insurance:[employer] MEDICAIDPolicy Number: [id number] Date:2890-53-40Mjfk Name:Gayle JIB: [id number] [place] [address] [facility] 08/31/2024 Primary Insurance:[facility] MEDICAIDPolicy Number: [id number] Date:4933-84-97Svpp Name:Gayle GRANGERDOB: [id number] [place] [address] [facility] 08/31/2024 Primary Insurance:[facility] [place] MEDICAIDPolicy Number: [id number] Date:7735-49-44Mkpl Name:Gayle GRANGERDOB: [id number] [place], [place] [address] [place] [address] 07/31/2024 Primary Insurance:[facility] [place] [place]Policy Number: [id number] Date:2279-22-84Oybv Name:Gayle JIB: [id number] [place], [place] [address] [place] [address] 07/31/2024 Primary Insurance:[facility] [place] MEDICAIDPolicy Number: [id number] Date:1171-39-35Roep Name:Gayle JIB: [id number] [place], [place] [address] [place] [address] 07/31/2024 Primary Insurance:[facility] [place] MEDICAIDPolicy Number: [id number] Date:2374-09-04Vqzt Name:Gayle GRANGERDOB: [id number] [place], [place] [address] [place] [address] 06/26/2024 Primary Insurance:[facility] [place] MEDICAIDPolicy Number: [id number] Date:7049-91-89Ouqo Name:Gayle GRANGERDOB: [id number] [place], [place] [address] [place] [address] 06/17/2024 Primary Insurance:[employer] MEDICAIDPolicy Number: [id number] Date:5174-77-03Pphc Name:Gayle JIB: [id number] [place] [address] [facility] 05/07/2024 Primary Insurance:[employer] MEDICAIDPolicy Number: [id number] Date:5602-10-80Jrur Name:Gayle JIJacob: [id number] [place] [address] [facility] 04/03/2024 Primary Insurance:[employer] MEDICAIDPolicy Number: [id number] Date:7299-19-93Xcbc Name:Gayle Palma HEBERT: [id number] [place] [address] [facility] 02/14/2024 Primary Insurance:[employer] MEDICAIDPolicy Number: [id number] Date:8851-47-08Ecps Name:Gayle Palma HEBERT: [id number] [place] [address] [facility]
[2025-02-07] VITALS (32 sets, daily range): BP systolic 120–155; BP diastolic 79–105; PULSE 70–134; RESP 16–18; TEMP 36.6–36.7; O2SAT 90–100; BMI 27.4
[2025-02-07] MEDS: Lactated Ringers 1,000 ML 50 ML IV (12:30)
[2025-02-07 12:51] LABS: Hematocrit 38.4 % (37-47); Hemoglobin 12.7 g/dL (12.0-15.0); Immature Granulocytes Count 0.210 X10^3/uL (0.0-0.0); Mean Corp Hgb Conc 33.1 g/dL (32-36); Mean Corpuscular Volume 78.9 fL (81-99); Mean Platelet Vol. 10.2 fl (6.2-12.0); NRBC Flagged by Analyzer 0 % (0-5); Platelet Count 408 K/mm3 (150-450); RBC Distribution Width CV 14.5 % (11.6-14.6); RBC Distribution Width SD 41.3 fl (35.1-43.9); Red Blood Count 4.87 M/mm3 (4.2-5.4); White Blood Count 17.3 K/mm3 (4.4-11.0)
--- NOTE | 2025-02-07 12:55 | PCM.RX.CS ---
Consult Antibiotic Management Pharmacy has been consulted to manage selected antibiotic: Vancomycin Type of Intervention Type of Consult: New start Suspected Infection Suspected Infection: Other (WP PPX) Prior Doses of Antibiotics Prior Doses of Antibiotics Received/Current Regimen: Vancomycin 1500 mg Q8H Dosing Weight Weight used for dosin.5 kg Goal Trough Goal Trough: 10-15 mcg/mL Pharmacy Plan for Drug Dosing Pharmacy Plan for Drug Dosing: Vancomycin 1500 mg Q8H, per RN likely close to delivery, will hold off on ordering trough for now Pharmacy Service will continue to monitor and adjust dosing as required.
--- NOTE | 2025-02-07 12:55 | PCM.HP.OB ---
HPI - General General Date of Admission: 02/07/25 HPI Narrative MARLON GRANGER, is a 29 F who presents at 39w1d with HERBER: 02/13/25. Presented with contractions increasing in strength and frequency. Upon triage went from 3cm to 6cm and admitted for labor. Maternal Data Information HERBER Calculator Estimated Delivery Date Method Current WG Current Estimate 02/13/25 Manual 39w 1d PFSH PFSH Home Medications ?Medication ?Instructions ?Recorded ?Last Taken ?Type vit no.95-ferrous 1 tab PO DAILY 02/07/25 02/06/25 21:00 History fumarate 28 mg-folic acid 800 mcg 1 TAB tablet () Allergy/AdvReac Type Severity Reaction Status Date / Time Penicillins Allergy Unknown Verified 02/07/25 12:43 Social History Smoking Status: Current every day smoker tobacco type: e-cigarettes History 2 Elective abortions Hx Para 1 Spontaneous abortions Hx # Term Pregnancies Ectopic pregnancies Hx # Pregnancies Multiple births # of living children NST FHR Rate Baby A Baseline: 130 Variability:: Moderate Accelerations:: 15 x 15 Decelerations:: Variable FHR Category:: Category II Uterine Activity:: every 2 minutes, strong ROS Constitutional Constitutional: Reports systems reviewed and no addt'l complaints, except as documented; Denies headache(s) Eyes Eyes: Denies acute decrease in peripheral vision, blurry vision or change in vision ENT HEENT: Reports systems reviewed and no addt'l complaints, except as documented Cardiovascular Cardiovascular: Denies chest pain or dizziness Respiratory/Chest Respiratory/Chest: Denies cough, dyspnea, dyspnea on exertion, shortness of breath at rest or shortness of breath with exertion Gastrointestinal Gastrointestinal: Denies abdominal pain, diarrhea, nausea or vomiting Genitourinary Genitourinary: Denies abdominal discomfort Musculoskeletal Musculoskeletal: Denies limited range of motion Integumentary Integumentary: Reports systems reviewed and no addt'l complaints, except as documented Neurologic Neurologic: Reports systems reviewed and no addt'l complaints, except as documented Psychiatric Psychiatric: Reports systems reviewed and no addt'l complaints, except as documented Endocrine Endocrinology: Reports systems reviewed and no addt'l complaints, except as documented Hematologic/Lymphatic Hematologic/Lymphatic: Reports systems reviewed and no addt'l complaints, except as documented Allergic/Immunologic Allergic/Immunologic: Reports systems reviewed and no addt'l complaints, except as documented Vital Signs Vital Signs Vital Signs: 02/07/25 12:20 02/07/25 12:20 02/07/25 12:36 Pulse Rate 117 H Blood Pressure 155/89 H 142/93 H BP Systolic 155 142 BP Diastolic 89 93 Pulse Ox 02/07/25 12:36 02/07/25 12:38 02/07/25 12:38 Pulse Rate 134 H 131 H Blood Pressure BP Systolic BP Diastolic Pulse Ox 97 Weight Weight: 159 lb 13.362 oz Body Mass Index (BMI) 27.4 Physical Exam Const alert and oriented x3 General Appearance: cooperative Orientation / Consciousness: awake, oriented to person, oriented to place and oriented to time Exam Limitations: no limitations HEENT normocephalic Head and Scalp: normal to inspection, normocephalic and atraumatic Face and Sinus: normal facial exam Eyes General Eye: normal appearance of both eyes Neck full ROM Chest Chest: symmetrical chest wall rise Resp normal respiratory effort and normal air movement Auscultation: clear to auscultation bilaterally Cardio regular rate, regular rhythm, S1 normal heart sound, S2 normal heart sound, no murmurs, no rub, no gallops and no clicks GI normal to inspection, nondistended, normoactive bowel sounds and non-tender appearance of the vagina normal Bladder / Kidney Exam: no CVA tenderness Manual OB Exam: estimated gestational size appropriate, presentation cephalic, dilated 8, effaced 80, station -1 and other SROM for large amount of meconium stained fluid Back/Spine normal ROM Extremity normal to inspection and full ROM Skin no rashes or lesions noted Neuro oriented x3, CN's II-XII intact bilaterally and moves all extremities Sensorium / Orientation: awake, alert and oriented to person Motor Exam: clonus absent Deep Tendon Reflexes: Rt Patellar (L4): 2+ and Lt Patellar (L4): 2+ Labs Labs Labs: Blood Type B NEGATIVE Antibody Screen NEGATIVE Hct, (37-47) 38.4 % Hgb, (12.0-15.0) 12.7 g/dL Syphilis Total Ab Non-reactive Hep Bs Antigen, (Negative) Negative Hepatitis C Antibody, (Nonreactive) Non-Reactive Hepatitis C Ab (EIA), (0.0-0.9) <0.1 s/co ratio Chlamydia DNA (RC), (Negative) Negative N.gonorrhoeae DNA (RC), (Negative) Negative HIV 1&2 Antibody, (Nonreactive) Non-Reactive Glucose 1 Hr 50 gm, (70-140) 114 mg/dL Group B Strep DNA, (Negative-) Negative Miscellaneous Test GBS positive-susceptible to Vanc, PCN allergic GC/CT negative Rubella Immune RPR negative HBsAg negative HepC negative HIV negative B negative Assessment & Plan (1) Active labor at term: (2) 39 weeks gestation of : (3) Positive GBS test: COMMENT: PCN allergy, susceptible to vancomycin (4) History of delivery: (5) Rh negative state in antepartum period: (6) Sickle cell trait: PLAN: Plan 1) Admit to labor and delivery 2) Routine labs 3) Continuous EFM 4) Pain management upon request 5) collaborative physician and notified of patient status, above assessment, and plan.
[2025-02-07 13:26] LABS: Syphilis Antibodies Nonreactive (Nonreactive)
[2025-02-07] MEDS: Oxytocin 15 Units/NS 250ml 15 UNITS/250 ML IV.SOLN 334 UNITS IV (13:35)
--- NOTE | 2025-02-07 13:39 | OB.VAGDELI_ITS ---
Assessment & Plan (1) Sickle cell trait: (2) Rh negative state in antepartum period: (3) Positive GBS test: COMMENT: PCN allergy, susceptible to vancomycin (4) Vaginal delivery: (5) First degree perineal laceration: (6) Lactating mother: Maternal Data Information HERBER Calculator Estimated Delivery Date Method Current WG Current Estimate 02/13/25 Manual 39w 1d Vaginal Delivery Maternal Presentation Maternal Presentation: Active Labor and Spontaneous Rupture of Membranes Vaginal Delivery Information Procedure Performed: Spontaneous Vaginal Delivery Surgeon/Practitioner: Wendy Le Date of Procedure: 02/07/25 Pre-Procedure Diagnosis: Active labor, MEC, SROM Post-Procedure Diagnosis: , first degree perineal laceration Type of anesthesia: None Estimated Blood Loss: 300 ml Time of Delivery: 13:23 Findings Description of procedure: Progressed to complete with urge to push. Nothing for pain management. of viable female infant over first degree perineal laceration . APGARS 8,9 respectively. head delivered with body immediately forthcoming. Placed on maternal abdomen, strong cry. Mouth and nares suctioned for secretions. Pitocin started for active 3rd stage management. Cord doubly clamped and cut by sister after pulsations ceased, delayed cord clamping. Placenta delivered intact via foote, 3 vessel cord intact. Perineum inspected and revealed intact degree perineal laceration. Repaired with 3.0 vicryl rapide one figure of 8 stitch, consented to no anesthesia. Fundus firm and hemostasis achieved. EBL 300ml. Vaginal sweep completed by me, sponge and instrument correct. Mom and baby stable, planning to breastfeed. notified of delivery. Presentation: Vertex and JEMIMA Amniotic Membrane Rupture Type: Spontaneous Amniotic Fluid Description: Thick meconium Placental Delivery Description: Spontaneous Placenta Disposition: [facility] Specimen collected: No Cord Vessel Description: 3 Vessels Cord Entanglement: None A Gender: Female (1 minute): 8 (5 minute): 9 Delayed Cord Clamping: Yes General Forecaster sprinkler repair technician: No Post Vaginal Deli Medications given after delivery: IV Pitocin Episiotomy Description: None Laceration: Perineal Extension/lac and 1st degree Complication Complications: No
[2025-02-07] MEDS: Oxytocin 15 Units/NS 250ml 15 UNITS/250 ML IV.SOLN 83 UNITS IV (14:50)
[2025-02-07] MEDS: SELF ADMINISTRATION OF MEDS 1 EACH NOTE (14:53)
[2025-02-07 17:17] LABS: AST(SGOT) 29 U/L (<=31); Alanine Aminotransfer ALT/SGPT 10 U/L (<=34); Albumin, Serum 3.3 g/dL (3.5-5.0); Alkaline Phosphatase 210 U/L (35-104); Anion Gap 10 (5-15); BUN 7 mg/dL (4-19); BUN/Creat Ratio 8.0 RATIO (10-20); Calcium,Total 8.6 mg/dL (7.6-11.0); Carbon Dioxide 20.3 mmol/L (21.0-32.0); Chloride 107 mmol/L (98-108); Estimated Creatinine Clearance 98.79 ml/min (50-250); Globulin 3.0 g/dL (2.2-4.2); Glucose 100 mg/dL (70-99); Potassium 3.9 mmol/L (3.3-5.1)
[2025-02-08 00:22] VITALS: BP 125/82; PULSE 91; RESP 16; TEMP 36.7; O2SAT 97
[2025-02-08] MEDS: SELF ADMINISTRATION OF MEDS 1 EACH NOTE (02:57)
[2025-02-08 04:47] VITALS: BP 115/81; PULSE 87; RESP 16; TEMP 36.6; O2SAT 97
[2025-02-08 07:35] VITALS: BP 121/84; PULSE 91; RESP 16; TEMP 36.5; O2SAT 97
--- NOTE | 2025-02-08 08:14 | PCM.PN.OB ---
Subjective Subjective Patient is doing well. Pain controlled. Lochia normal. She is breast-feeding without complaints. She is ambulating voiding without difficulty. She denies headache, vision changes, chest pain, shortness of breath, lightheadedness, leg pain. Objective Data Objective Data Vital Signs: Vital Signs Temp Pulse Resp BP Pulse Ox O2 Del Method 97.7 F L 91 16 121/84 H 97 Room Air 02/08/25 07:35 02/08/25 07:35 02/08/25 07:35 02/08/25 07:35 02/08/25 07:35 02/08/25 07:35 Oxygen Delivery Method Room Air Weight: 159 lb 13.362 oz Body Mass Index (BMI) 27.4 Intake & Output: Intake and Output for Last 24 Hours 02/06/25 02/07/25 02/08/25 23:59 23:59 23:59 Intake Total 550 / 550 Output Total 1200 / 1200 Balance -650 / -650 Lab / Micro Data 02/07/25 12:30 02/07/25 16:40 Labs: Laboratory Results - last 24 hr 02/07/25 12:30: WBC 17.3 H, RBC 4.87, Hgb 12.7, Hct 38.4, MCV 78.9 L, MCH 26.1 L, MCHC 33.1, RDW Std Deviation 41.3, RDW Coeff of Jose 14.5, Plt Count 408, MPV 10.2, Immature Gran % (Auto) 1.200 H, Neut % (Auto) 72.6 H, Lymph % (Auto) 18.3 L, [place] % (Auto) 6.6, Eos % (Auto) 0.8, Baso % (Auto) 0.5, Absolute Neuts (auto) 12.6 H, Absolute Lymphs (auto) 3.17, Nucleated RBC % 0, Syphilis Total Ab Nonreactive, Blood Type B NEGATIVE, Antibody Screen NEGATIVE 02/07/25 16:40: Sodium 137, Potassium 3.9, Chloride 107, Carbon Dioxide 20.3 L, Anion Gap 10, BUN 7, Creatinine 0.82, Estim Creat Clear Calc 98.79, Est GFR (MDRD) Non-Af 100, BUN/Creatinine Ratio 8.0 L, Glucose 100 H, Calcium 8.6, Total Bilirubin 0.26, AST 29, ALT 10, Alkaline Phosphatase 210 H, Total Protein 6.3, Albumin 3.3 L, Globulin 3.0, Albumin/Globulin Ratio 1.1 Physical Exam Const alert and no apparent distress General Appearance: comfortable HEENT normocephalic Resp normal respiratory effort GI soft to palpation, non-tender and non-distended GI Narrative: FF@U-2 Assessment & Plan (1) Vaginal delivery: PLAN: PPD#1 s/p . Doing well . Routine care. Dispo: Anticipate discharge tomorrow. (2) First degree perineal laceration: (3) Lactating mother:
[2025-02-08 09:50] VITALS: BP 122/89; PULSE 90
[2025-02-08 15:12] VITALS: BP 125/90; PULSE 69; RESP 16; TEMP 36.4; O2SAT 99
[2025-02-08 21:09] VITALS: BP 133/93; PULSE 69; RESP 16; TEMP 36.6; O2SAT 99
[2025-02-09 02:19] VITALS: BP 141/90; PULSE 59; RESP 16; TEMP 36.7; O2SAT 99
--- NOTE | 2025-02-09 09:00 | PCM.PN.OB ---
Subjective Subjective Doing well per patient and nursing staff. Ambulating and taking PO without difficulty. Voiding and passing flatus. Pain controlled. , services for assistance. Denies headache, visual changes, chest pain, shortness of breath, leg pain or increased bleeding. Lochia normal. Objective Data Objective Data Vital Signs: Vital Signs Temp Pulse Resp BP Pulse Ox O2 Del Method 98.0 F 59 L 16 141/90 H 99 Room Air 02/09/25 02:19 02/09/25 02:02/09/25 02:02/09/25 02:19 02/09/25 02:02/09/25 02:19 Oxygen Delivery Method Room Air Weight: 159 lb 13.362 oz Body Mass Index (BMI) 27.4 Intake & Output: Intake and Output for Last 24 Hours 02/07/25 02/08/25 02/09/25 23:59 23:59 23:59 Intake Total 550 / 550 Output Total 1200 / 1200 Balance -650 / -650 Lab / Micro Data 02/07/25 12:30 02/07/25 16:40 ROS Constitutional Constitutional: Reports systems reviewed and no addt'l complaints, except as documented; Denies headache(s) Eyes Eyes: Denies acute decrease in peripheral vision, blurry vision or change in vision ENT HEENT: Reports systems reviewed and no addt'l complaints, except as documented Cardiovascular Cardiovascular: Denies chest pain or dizziness Respiratory/Chest Respiratory/Chest: Denies cough, dyspnea, dyspnea on exertion, shortness of breath at rest or shortness of breath with exertion Gastrointestinal Gastrointestinal: Denies abdominal pain, diarrhea, nausea or vomiting Genitourinary Genitourinary: Denies abdominal discomfort Musculoskeletal Musculoskeletal: Denies limited range of motion Integumentary Integumentary: Reports systems reviewed and no addt'l complaints, except as documented Neurologic Neurologic: Reports systems reviewed and no addt'l complaints, except as documented Psychiatric Psychiatric: Reports systems reviewed and no addt'l complaints, except as documented Endocrine Endocrinology: Reports systems reviewed and no addt'l complaints, except as documented Hematologic/Lymphatic Hematologic/Lymphatic: Reports systems reviewed and no addt'l complaints, except as documented Allergic/Immunologic Allergic/Immunologic: Reports systems reviewed and no addt'l complaints, except as documented Physical Exam Const alert and oriented x3 General Appearance: cooperative Orientation / Consciousness: awake, oriented to person, oriented to place and oriented to time Exam Limitations: no limitations HEENT normocephalic Head and Scalp: normal to inspection, normocephalic and atraumatic Face and Sinus: normal facial exam Eyes General Eye: normal appearance of both eyes Neck full ROM Chest Chest: symmetrical chest wall rise Resp normal respiratory effort and normal air movement Auscultation: clear to auscultation bilaterally Cardio regular rate, regular rhythm, S1 normal heart sound, S2 normal heart sound, no murmurs, no rub, no gallops and no clicks GI normal to inspection, nondistended, normoactive bowel sounds and non-tender GI Narrative: Fundus firm 2 below U appearance of the vagina normal Narrative: Normal lochia rubra Bladder / Kidney Exam: no CVA tenderness Back/Spine normal ROM Extremity normal to inspection and full ROM Skin no rashes or lesions noted Neuro oriented x3, CN's II-XII intact bilaterally and moves all extremities Sensorium / Orientation: awake, alert and oriented to person Motor Exam: clonus absent Deep Tendon Reflexes: Rt Patellar (L4): 2+ and Lt Patellar (L4): 2+ Assessment & Plan (1) Lactating mother: (2) First degree perineal laceration: (3) Vaginal delivery: PLAN: Plan 1) Routine PPD#2 2) BP 140s/90s. Labetalol 200mg PO BID. 3) I&O 4) Pain management 5) services PRN 6) Planning D/C home tomorrow
--- NOTE | 2025-02-09 09:01 | PCM.DC.SUM ---
Providers Date of Admission: 02/07/25 Primary Care Physician: Dr. José Valderrama MD Reason For Visit: LABOR Diagnosis Discharge Diagnosis (1) Vaginal delivery: Status: Acute Code(s): O80 - Encounter for full-term uncomplicated delivery (2) First degree perineal laceration: Status: Acute Code(s): O70.0 - First degree perineal laceration during delivery (3) Lactating mother: Status: Acute Code(s): Z39.1 - Encounter for care and examination of lactating mother Plan 1) Admit to labor and delivery 2) Routine labs 3) Continuous EFM 4) Pain management upon request 5) [facility] physician and notified of patient status, above assessment, and plan. Medications at Discharge Home Medications vit no.95-ferrous fumarate 28 mg-folic acid 800 mcg tablet () 1 tab PO DAILY 02/07/25 acetaminophen 500 mg tablet 1,000 mg (2 x 500 mg) PO Q6H PRN PRN Pain 1-10 Or Fever #0 tabs 02/09/25 ibuprofen 600 mg tablet 600 mg PO Q6H PRN PRN Pain Score 1-10 #0 tabs 02/09/25 labetalol 200 mg tablet 200 mg PO Q12 #60 tabs 02/09/25 Weight / BMI Weight Weight: 159 lb 13.362 oz Body Mass Index (BMI) 27.4 ABG / Lab / Microbiology Data 02/07/25 12:30 02/07/25 16:40 Discharge Plan Admission Admit Date/Time: 02/07/25 12:18 Primary Reason for Your Visit: Vaginal Delivery Attending Provider: Wendy Le Primary Care Provider: José Valderrama Discharge Orders/Prescriptions Prescriptions: New acetaminophen 500 mg Tablet 1,000 mg PO Q6H PRN PRN (Reason: Pain 1-10 Or Fever) Qty: 0 0RF ibuprofen 600 mg Tablet 600 mg PO Q6H PRN PRN (Reason: Pain Score 1-10) Qty: 0 0RF labetalol 200 mg Tablet 200 mg PO Q12 Qty: 60 0RF Continued PNV no.95-ferrous fumarate-FA [] 28 mg iron- 800 mcg tablet 1 tab PO DAILY Referrals / Follow Up: José Valderrama MD [Primary Care Provider, Family Practice] Disposition Disposition (needs filled in before D/C Order can be placed): Home, Self Care
[2025-02-09 09:05] VITALS: BP 141/89; PULSE 70; RESP 14; TEMP 36.2; O2SAT 98
--- NOTE | 2025-02-09 10:14 | CASEMGMT ---
Social Work Assessment Labor and Delivery Unit Patient Address: [facility] [place] [address] Phone number: [phone] Date of Referral: 02/07/25 Time of Referral:? 1254 Referred By: Wendy Le Date of Intervention: ?02/08/25? Time of Intervention:? 1320 Reason for Referral:? her father has a history of drug use Sw completed chart review and acknowledges social work consult. Sw presented to bedside and introduced self to mother of baby (SUPRIYA- [place]). Sw explained reason for sw involvement and completed psychosocial assessment. History obtained from: medical records and MOB Household composition: SUPRIYA reports that she is currently residing with her grandmother. Also living with her is her 12 year old son, Eduarda. MOB states that baby is to be included in residence when ready for discharge. MOB states that there are no housing concerns, stating home is safe and secure. Patient's parent/guardian status:? ?MOB states that she and father of baby (FOB- Paulino Ball) have been friends for a long time, stating that she is not quite sure how they specifically met. MOB states that when they hooked up, she got . MOB states that her and FOB were not and are not in a relationship, and sexual relationship was consensual. MOB states at this time she does not have intentions asking FOB to parent with her, but she states I got what I wanted out of our relationship, I wanted a daughter. And I do not expect anything in return. MOB states that she informed FOB that she was , and he did not believe that the baby was his. MOB states that she does intend on establishing paternity because she knows that the baby is FOB's but does not plan on filing for child support. Medical History: ?SUPRIYA is 29 year old female who is 2, para 1- now 2 following labor and delivery of . SUPRIYA received routine care during with [facility]. SUPRIYA presented to hospital in active labor and delivered baby via vaginal delivery on 02/07/29 at 39 weeks gestation. baby girl, named Bruce Spence, was born weighing 6lb 14oz with apgars of 8 and 9 at one and five minutes of life respectfully. SUPRIYA is bottle and breast feeding and reports baby will be followed by Dr. Bueno for pediatric care. Educational Status:? SUPRIYA states that she graduated high school. Denies problems with reading, learning or comprehension. 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 She is not sure how much time she is going to take off for maternity leave Supplies:?? All necessary baby supplies obtained, including: car seat, safe sleep space, clothes, diapers and wipes. Childcare/Caregiver(s):? SUPRIYA reports that she will be the primary caregiver to baby along with her grandmother, mom and sister when she needs help with childcare. Transportation:?? SUPRIYA reports that she has her drivers license and reliable means of transportation. Programs/Agencies Involved: SUPRIYA has insurance through [employer], as well as SNAP and WIC ?? Children Services/Legal Issues:??? No history of children services involvement, and no issues or concerns warranting referral to be made at this time. Behavioral Health Issues:. ??Mental Health History:? SUPRIYA denies any mental health history or diagnoses. SUPRIYA states that she did not have any mental health issues following her delivery with her first baby?? Substance Use History: MOB denies substance use prior to and during . SUPRIYA states that FOB does have a substance use problem but does not know what substances he uses. ?? Family History:?SUPRIYA states that her father has a substance melanie history, but she is not sure what type of substances he uses. SUPRIYA states that she does not go around her father and he is not going to be involved with . Sw explained importance of using healthy and safe coping mechanisms opposed to seeking comfort from drugs or alcohol.?? Drug Screens: ??No drug screens observed while completing chart review. Family/Social Stressors:? SUPRIYA denies any issues,concerns or stressors at this time. Support Systems: SUPRIYA states that her mother, grandmother and her sister are her biggest supports at this time. Depression/Shaken Baby/Safe Sleeping:? Sw educated SUPRIYA on signs and symptoms of baby blues and depression and anxiety. MOB reports that she has heard the terms, but asked about specific symptoms to be on the lookout for. Sw and MOB talked about symptoms and healthy and safe coping skills to utilize if she were to struggle with any mental health symptoms during this period. SUPRIYA reports that she has her family who will be able to help her and support her if she feels as though she is struggling. Sw educated MOB on signs and symptoms of shaken baby prevention and ABCs of safe sleep, MOB expressed understanding. MOB expressed understanding. ASSESSMENT:? MOB and baby admitted following labor and delivery. MOB has a father who has substance use history, and MOB states that she does not use substances because she does not like the way they make her feel. SUPRIYA states that she resides with her grandma, and her 12 year old son. SUPRIYA reports that she is employed and is not currently in a relationship with the father of the baby. MOB states that she has known the father for a long time, and just wanted to have a baby, and that is what she got out of the relationship with him. MOB states that she does not have any expectations of him to parent, and she is okay if he doesn't, but she does intend to establish paternity. MOB was talkative with sw, and provided hands on care to while sw was meeting with her. SUPRIYA was not overly talkative, but did talk to answer questions that were asked while completing assessment. SUPRIYA reports to having all necessary baby supplies and natural supports found in her grandmother who she lives with and her mother. PLAN:? No other services requested or indicated. MOB and baby to be discharged when medically ready. Parents were provided literature regarding: signs and symptoms of baby blues and mood and anxiety disorders, Help Me Grow, shaken baby prevention, ABCs of safe sleep and a list of county resources that are available for them should any needs present themselves. Chris Flores, DOOR MAKER, PRIVATE EQUITY ANALYST
[2025-02-09 10:35] VITALS: BP 138/98; PULSE 77; O2SAT 98
--- NOTE | 2025-02-09 12:19 | NURSING ---
student charting reviewed by this instructor
[2025-02-09 12:40] VITALS: BP 147/94; PULSE 72; RESP 12; TEMP 36.3; O2SAT 99
[2025-02-09 14:35] VITALS: BP 144/100; BP 147/108; PULSE 81; RESP 14; TEMP 36.2; O2SAT 97
[2025-02-09 21:34] VITALS: BP 125/94; PULSE 71; RESP 16; TEMP 36.8; O2SAT 98
[2025-02-10 01:08] VITALS: BP 118/76; PULSE 70; RESP 14; TEMP 36.4; O2SAT 97
[2025-02-10 06:01] VITALS: BP 123/84
[2025-02-10 08:05] VITALS: BP 122/91; PULSE 76; RESP 16; TEMP 36.3; O2SAT 97
--- NOTE | 2025-02-10 08:37 | DS.PCM_ITS ---
Providers Date of Admission: 02/07/25 Primary Care Physician: Dr. José Valderrama MD Reason For Visit: LABOR Diagnosis Discharge Diagnosis (1) Lactating mother: Status: Acute Code(s): Z39.1 - Encounter for care and examination of lactating mother (2) First degree perineal laceration: Status: Acute Code(s): O70.0 - First degree perineal laceration during delivery (3) Vaginal delivery: Status: Acute Code(s): O80 - Encounter for full-term uncomplicated delivery (4) Elevated blood pressure reading with diagnosis of hypertension: Status: Acute Code(s): I10 - Essential (primary) hypertension (5) Care and examination of lactating mother: Status: Acute Code(s): Z39.1 - Encounter for care and examination of lactating mother Plan PPD 2 BP- stable while taking Labetalol 200 mg PO TID No severe ranges- 118/76 123/84 125/94 Patient asymptomatic without difficulty Desires discharge home later today RX sent Medications at Discharge Home Medications vit no.95-ferrous fumarate 28 mg-folic acid 800 mcg tablet () 1 tab PO DAILY 02/07/25 acetaminophen 500 mg tablet 1,000 mg (2 x 500 mg) PO Q6H PRN PRN Pain 1-10 Or Fever #0 tabs 02/09/25 ibuprofen 600 mg tablet 600 mg PO Q6H PRN PRN Pain Score 1-10 #0 tabs 02/09/25 labetalol 200 mg tablet 200 mg PO Q12 #60 tabs 02/09/25 labetalol 200 mg tablet 200 mg PO TID #90 tabs 02/10/25 Hospital Course Operations None Procedures None Summary of Care Provided Minutes Spent on Discharge: 15 Hospital Course: Patient had vaginal delivery. Hospital course was uneventful. Physical Exam Narrative Patient seen at bedside. Denies pain. Ambulating and voiding without difficulty. Lochia decreased. Desires discharge home today. Const alert and oriented x3 General Appearance: Negative for in distress HEENT normocephalic Eyes General Eye: normal appearance of both eyes Neck General: normal visual inspection Chest Chest: symmetrical chest wall rise Resp normal respiratory effort and normal air movement Effort and Inspection: symmetric chest movement; Negative for tachypneic Auscultation: clear to auscultation bilaterally Cardio regular rate and regular rhythm Peripheral Pulses: pulses 2+ throughout GI normal to inspection, nondistended, normoactive bowel sounds Narrative: Ice to perineum OB / External & Speculum: vaginal bleeding and other Lochia decreasing Uterus Palpation: uterus fundus firm (Below U) Extremity normal to inspection, full ROM and normal capillary refill Skin no rashes or lesions noted Neuro oriented x3, CN's II-XII intact bilaterally and gait normal Psych mental status grossly normal, thought process normal and activity/motor behavior normal Weight / BMI Weight Weight: 159 lb 13.362 oz Body Mass Index (BMI) 27.4 ABG / Lab / Microbiology Data 02/07/25 12:30 02/07/25 16:40 D/C Instructions Discharge Activity: Return to Normal Activity, No Restrictions, May Drive, May Shower and May Take a Tub Bath (Warm water only. No bath salts, soaps, bubbles) May resume sexual activity in: 6-8 weeks Weight Bearing Status: Weight bearing as tolerated Call your doctor if you observe: Fever of 101 or Higher, Inability to urinate, Using more than 1 pad per hour, Shortness of breath, Dizziness, Chest pain, Calf discomfort and Uncontrolled pain DC O2, CPAP, BIPAP Needs Home O2 Discharge instructions: No Additional Instructions: Call office if BP >160/110 or symptomatic- headache, vision changes, SOB, severe swelling DO NOT TAKE BP Medications if BP <90/60 Please Follow Up With: [facility] Amrik CANO When: NEXT WEEK FOR BP CHECK Meaningful Use Info Meaningful Use Meaningful Use Diagnoses (Choose all that apply): None applicable Discharge Plan Admission Admit Date/Time: 02/07/25 12:18 Primary Reason for Your Visit: Vaginal Delivery Attending Provider: Wendy Le Primary Care Provider: José Valderrama Discharge Orders/Prescriptions Prescriptions: New acetaminophen 500 mg Tablet 1,000 mg PO Q6H PRN PRN (Reason: Pain 1-10 Or Fever) Qty: 0 0RF ibuprofen 600 mg Tablet 600 mg PO Q6H PRN PRN (Reason: Pain Score 1-10) Qty: 0 0RF labetalol 200 mg Tablet 200 mg PO Q12 Qty: 60 0RF labetalol 200 mg Tablet 200 mg PO TID Qty: 90 0RF Continued PNV no.95-ferrous fumarate-FA [] 28 mg iron- 800 mcg tablet 1 tab PO DAILY Referrals / Follow Up: José Valderrama MD [Primary Care Provider, Family Practice] Disposition Disposition (needs filled in before D/C Order can be placed): Home, Self Care
== END 2025-02-10 13:00 | disposition home or self-care (01) | DRG 560 ==
PROVIDERS: Admitting Provider Advanced Practice Midwife; PCP Family Medicine; Visit Provider Advanced Practice Midwife
DX: O99.02 Anemia complicating childbirth (principal); Z37.0 Single live birth; B95.1 Streptococcus, group B, as the cause of diseases classified elsewhere; O16.5 Unspecified maternal hypertension, complicating the puerperium; F17.210 Nicotine dependence, cigarettes, uncomplicated; D57.3 Sickle-cell trait; O99.824 Streptococcus B carrier state complicating childbirth; O70.0 First degree perineal laceration during delivery; Z3A.39 39 weeks gestation of pregnancy; O99.334 Smoking (tobacco) complicating childbirth; Z67.91 Unspecified blood type, Rh negative; O26.893 Other specified pregnancy related conditions, third trimester
CPT/HCPCS: 59025; 59050; 80053; 85025; 86780; 86850; 86900; 86901; 99221; G0378

== ENCOUNTER 2025-02-27 22:29 | Outpatient (CLI) | payer MEDICAID, SELFPAY ==
--- OUTSIDE RECORDS SUMMARY | 2025-02-27 22:41 | XMS RPT_ITS | CCD ---
Author Organization [facility] Inform ion [facility] Care Team Providers Care Roller Mill Tender Name Role Phone PHYSICIAN, NONE Primary Care Physician Unavailab le Unavailable Primary Care Provider UnavailAngeline Schmidt MD Primary Care Provider Angeline Valderrama MD Primary Care Provider Angeline Valderrama MD Primary Care Provider Angeline Valderrama MD Primary Care Provider Dr. Angeline Valderrama MD Primary Care Physicia n Dr. Grisel Shen MD Attending Physician Wendy Le CNM Admitting Physician Wendy Le CNM Attending Physician Angeline Valderrama Primary Care Unavailable Grisel Shen Attending Unavailable Angeline Valderrama Primary Care Unavailable Wendy Le Attending Unavailable Wendy Le Admitting Unavailable Storm Flannery Attending Unavailable Angeline Valderrama Primary Care Unavailable ANGELINE VALDERRAMA Primary Care UnavailJAMES Stanley Referring Unavailable ANGELINE VALDERRAMA Primary Care UnavailWENDY Justice Attending Unavailable ANGELINE VALDERRAMA Primary Care UnavailGRISEL Tavarez Attending Unavailable ANGELINE VALDERRAMA Primary Care Unavailabl JOSE Roper Referring Unavailable JOSE SOTO Attending Unavailable ANGELINE VALDERRAMA Primary Care Unavailabl ANGELINE Sen Primary Care UnavailGRISEL Tavarez Attending Unavailable ANGELINE VALDERRAMA Primary Care UnavailGRISEL Tavarez Referring Unavailable YADI, DELFINER Jacob Primary Care Unavailabl e HAURY, JAMES Attending Unavailable HAURY, JAMES Referring Unavailable GEO MARIE Attending Unavailable ANGELINE VALDERRAMA Primary Care Unavailabl e WISWELL, JOSE Referring Unavailable YADI, DELFINER B Primary Care Unavailabl e GRISEL SHNE Attending Unavailable HAMUSTAPHA, JAMES Referring Unavailable [facility], DELFINER Jacob Primary Care Unavailabl e HAURY, JAMES Referring Unavailable [facility], DRY FORK B Primary Care Unavailabl e GRISEL SHEN Attending Unavailable [facility], DRY FORK Jacob Primary Care Unavailabl e HAURY, JAMES Attending Unavailable HAURY, JAMES Attending Unavailable [facility], DRY FORK B Primary Care Unavailabl e RANJACOBO, DRY FORK B Primary Care Unavailabl e HAURY, JAMES Attending Unavailable [facility], DRY FORK Jacob Primary Care Unavailabl e RANJACOBO, DRY FORK B Primary Care Unavailabl e HAURY, JAMES Attending Unavailable YADI, DRY FORK Jacob Primary Care Unavailabl e GEO MARIE Attending Unavailable [facility] BL[facility]CH[facility], DRY FORK Jacob Primary Care Unavailabl e BRIGITTEGRISEL LAUGHLIN Referring Unavailable [facility] Primary Care Unavailabl e GRISEL SHEN Attending Unavailable LEDY, JOSE Attending Unavailable [facility], [facility] Jacob Primary Care Unavailabl e MARLENE CRUZ Attending Unavailable YADI, DRY FORK B Primary Care Unavailabl e HAURY, JAMES Referring Unavailable [facility], [facility] Jacob Primary Care Unavailabl e CYNTHIA, KARMON Referring Unavailable YADI, DELFINER Jacob Primary Care Unavailabl e RANJACOBO, DRY FORK B Primary Care Unavailabl e WISWELL, JOSE Attending Unavailable CYNTHIA KARMON Referring Unavailable WISWELL, JOSE Attending Unavailable [facility]CHARD, [facility] Primary Care Unavailabl e RANJACOBO, DRY FORK B Primary Care Unavailabl e HAURY, JAMES Referring Unavailable Allergies Allergy Classification Reported Allergen(s) Allergy Type Date of Onset Reaction(s) Facility (1 source) Penicillin; Translations: [penicillin] Drug Allergy [facility] (12 sources) Penicillins; Translations: [PENICILLINS] Allergy to substance 1 Other: See Comments [facility] (20 sources) Penicillins Drug Allergy 1 Other: See Comments [facility] (20 sources) moxifloxacin; Translations: [MOXIFLOXACIN] Drug Allergy 4 Intolerance [facility] Work Phone: (20 sources) tioconazole; Translations: [TIOCONAZOLE] Drug Allergy 5 Intolerance [facility] (20 sources) Penicillins Drug Allergy 1 Other: See Comments, Hives [facility] (1 source) Penicillins Drug allergy (disorder) 5 [facility] Repository Medications Current Medications Medication Drug Class(es) Dates Sig (Normalized) Sig (Original) acetaminophen 500 mg oral tablet (2 sources) Start: 02-09-2025 take 1-10 tablets by mouth every six hours as needed for pain Start: 02-09-2025 take 1-10 tablets by mouth sendy ry six hours as needed for pain acetaminophen 325 mg / HYDROcodone bitartrate 5 mg oral tablet (1 source) Opioid Agonist Start: 05-12-2021 End: 05-15-2021 take 1 tablet by mouth every six hours [place] 325- 5 mg oral tablet Dose = 1 tab(s), Oral, q6h, # 10 tab(s), 0 Refill(s), Dentalgia, 50 Start Date: 05/12/21 Stop Date: 05/15/21 Status: Ordered azithromycin 500 mg oral tablet (2 sources) Macrolide Antimicrobial Start: 04-20-2024 End: 04-23-2024 take 1 tablet by mouth once daily azithromycin (ZITHROMAX) 500 mg tablet Take 1 tablet by mouth once daily for 3 days. 3 tablet 04/20/2024 04/23/2024 Active Start: 04-20-2024 End: 04-20-2024 take 2 tablets by mouth once azithromycin (ZITHROMAX) 500 mg tablet Take 2 tablets by mouth one time only for 1 dose. 2 tablet 04/20/2024 04/20/2024 Active clindamycin 20 mg/ml vaginal cream (5 sources) Lincosamide Antibacterial Start: 06-29-2024 End: 07-06-2024 clindamycin phosphate (CLEOCIN) 2 % vaginal cream Use 1 Applicatorful vaginally daily at bedtime for 7 days. 40 g 06/29/2024 07/06/2024 Active Start: 04-03-2024 End: 04-10-2024 clindamycin phosphate (CLEOC IN) 2 % vaginal cream Indications: Bacterial vaginosis Use 1 Applicatorful vaginally daily at bedtime for 7 days. 40 g 04/03/2024 04/10/2024 Active Start: 02-15-2024 End: 2024 clindamycin phosphate 2 % va ginal cream Indications: BV (bacterial vaginosis) Use 1 Applicatorful vaginally daily at bedtime for 7 days. 40 g 02/15/2024 2024 Active Start: 05-12-2021 End: 05-17-2021 clindamycin 150 mg oral caps ule Dose : 150 mg = 1 cap(s), Oral, q6h, # 20 cap(s), 0 Refill(s), Dentalgia, 50 Start Date: 05/12/21 Stop Date: 05/17/21 Status: Ordered clotrimazole 10 mg/ml vaginal cream (4 sources) Azole Antifungal Start: 06-18-2024 End: 06-25-2024 clotrimazole (LOTRIMIN) 1 % vaginal cream Use 1 Applicatorful vaginally once daily for 7 days. 45 g 06/18/2024 06/25/2024 Active doxycycline hyclate 100 mg oral tablet (3 sources) Tetracycline-clas s Drug Start: 04-08-2024 End: 04-15-2024 take 1 tablet by mouth twice daily doxycycline (VIBRA-TABS) 100 mg tablet Take 1 tablet by mouth two times a day for 7 days. 14 tablet 04/08/2024 04/15/2024 Active Start: 08-25-2022 End: 09-01-2022 take 1 capsule by mouth twice daily doxycycline monohydrate (MONODOX) 100 mg capsule Take 1 capsule by mouth twice daily for 7 days. 14 capsule 0 08/25/2022 09/01/2022 Active Comment on above: Take 1 capsule by mo uth twice daily for 7 days. Ethinyl Estradiol / Ferrous fumarate / Norethindrone (1 source) Estrogen Start: take 1 tablet by mouth once daily Loestrin 21 06/01 oral tablet Dose = 1 tab(s), Oral, qDay, # 28 tab(s), 0 Refill(s) Start Date: 03/18/18 Status: Ordered famotidine 20 mg oral tablet (2 sources) Histamine-2 Receptor Antagonist Start: take 1 tablet by mouth twice daily famotidine (PEPCID) 20 mg tablet Indications: 36 weeks gestation of (HCC) , Nausea/vomiting in (HCC) Take 1 tablet by mouth two times a day. 30 tablet 01/18/2025 Active ferrous sulfate 44 mg/ml oral solution (11 sources) Start: End: 5 take 5 mL by mouth every other day ferrous sulfate 220 mg (44 mg iron)/5 mL elixir Indications: Anemia complicating , third trimester (HCC) Take 5 mL by mouth every other day. 75 mL 11/23/2024 Active Start: 11-23-2024 End: 11-23-2024 take 5 mL by mouth every other day ferrous sulfate 300 mg (60 mg iron)/5 mL syrup Indications: Anemia complicating , third trimester (HCC) Take 5 mL by mouth every other day. 5 mL 11 11/23/2024 11/23/2024 Discontinued (Other) fluconazole 150 mg oral tablet (4 sources) Azole Antifungal Start: 05-07-2024 End: 05-07-2024 take 1 tablet by mouth once fluconazole (DIFLUCAN) 150 mg tablet Take 1 tablet by mouth one time only for 1 dose. 1 tablet 05/07/2024 05/07/2024 Active Start: 04-03-2024 End: 04-03-2024 take 1 tablet by mouth once fluconazole (DIFLUCAN) 150 mg tablet Take 1 tablet by mouth one time only for 1 dose. 1 tablet 04/03/2024 04/03/2024 Active Start: 02-15-2024 End: 02-15-2024 fluconazole (DIFLUCAN) 150 m g tablet Indications: Vaginal yeast infection Take 1 tablet by mouth one time only for 1 dose. Repeat in 3 days as needed. 2 tablet 02/15/2024 02/15/2024 Active Start: 02-19-2023 End: 02-19-2023 fluconazole (DIFLUCAN) 150 m g tablet Take 1 tablet by mouth one time only for 1 dose. Repeat in 3 days as needed. 2 tablet 0 02/19/2023 02/19/2023 Comment on above: Take 1 tablet by kristen one time only for 1 dose. Repeat in 3 days as needed. ibuprofen 600 mg oral tablet (2 sources) Nonsteroidal Anti-inflammatory Drug Start: 02-09-2025 take 1 tablet by mouth every six hours as needed for pain Start: 02-09-2025 take 1 tablet by mouth every s ix hours as needed for pain labetalol hydrochloride 200 mg oral tablet (2 sources) beta-Adrenergic Aram Start: 02-10-2025 take 1 tablet by mouth three times daily Start: 02-09-2025 take 1 tablet by mouth every t welve hours Lactobacillus acidophilus (19 sources) Start: 07-17-2022 End: 04-03-2024 ACIDOPHILUS cap 07/17/2022 1 06/03/2023 Discontinued Start: 07-17-2022 ACIDOPHILUS ca p 07/17/2022 Active Start: 07-17-2022 ACIDOPHILUS ca p moxifloxacin 400 mg oral tablet (1 source) Quinolone Antimicrobial Start: 04-08-2024 End: 04-15-2024 take 1 tablet by mouth once daily moxifloxacin (AVELOX) 400 mg tablet Take 1 tablet by mouth once daily for 7 days. 7 tablet 04/08/2024 04/15/2024 Active Pnv No.95-Ferrous Fumarate-Fa () 28 mg iron- 800 mcg tablet (2 sources) Start: 02-07-2025 Pnv No.95-Ferrous Fumarate-Fa () 28 mg iron- 800 mcg tablet Active 1 {tbl} PO DAILY February 07, 2025 12:00am Complies with drug therapy VITAFUSION GUMMY TChS (20 sources) Start: 06-26-2024 take 1 tablet by mouth once daily VITAFUSION GUMMY TChS Take 1 tablet by mouth once daily. 90 tablet 3 06/26/2024 Active Completed/Discontinued Medications Medication Drug Class(es) Dates Sig (Normalized) Sig (Original) aspirin 81 mg delayed release oral tablet (19 sources) Platelet Aggregation Inhibitor, Nonsteroidal Anti-inflammatory Drug Start: 06-26-2024 End: 12-03-2024 take 1 tablet by mouth once daily aspirin, enteric coated (ECOTRIN LOW STRENGTH) 81 mg EC tablet Take 1 tablet by mouth once daily. 90 tablet 3 06/26/2024 12/03/2024 Discontinued metroNIDAZOLE 500 mg oral tablet (10 sources) Nitroimidazole Antimicrobial Start: 06-29-2024 End: 06-29-2024 take 1 tablet by mouth twice daily metroNIDAZOLE (FLAGYL) 500 mg tablet Indications: Bacterial vaginosis Take 1 tablet by mouth two times a day for 7 days. 14 tablet 06/29/2024 06/29/2024 Discontinued Start: 04-03-2024 End: 05-07-2024 metroNIDAZOLE (METROGEL) 0.7 5 % (37.5mg/5 gram) Vaginal Gel Indications: Bacterial vaginosis Use 1 Applicatorful vaginally two times a week. After finishing Clindamycin treatment. 70 g 2 04/03/2024 05/07/2024 Discontinued Start: 01-28-2024 End: 02-02-2024 metroNIDAZOLE (METROGEL) 0.7 5 % (37.5mg/5 gram) Vaginal Gel Use 1 Applicatorful vaginally daily at bedtime for 5 days. 70 g 01/28/2024 02/02/2024 Active Start: 10-26-2023 End: 11-02-2023 take 1 tablet by mouth twice daily metroNIDAZOLE (FLAGYL) 500 mg tablet Take 1 tablet by mouth two times a day for 7 days. 14 tablet 0 10/26/2023 11/02/2023 Active Start: 01-05-2023 End: 01-12-2023 take 1 tablet by mouth twice daily metroNIDAZOLE (FLAGYL) 500 mg tablet Indications: Acute vaginitis Take 1 tablet by mouth twice daily for 7 days. 14 tablet 0 01/05/2023 01/12/2023 Active Start: 08-25-2022 End: 09-01-2022 take 1 tablet by mouth twice daily metroNIDAZOLE (FLAGYL) 500 mg tablet Indications: BV (bacterial vaginosis) Take 1 tablet by mouth twice daily for 7 days. 14 tablet 0 08/25/2022 09/01/2022 Active Comment on above: Take 1 tablet by kristen th twice daily for 7 days. Problems Active Problems Problem Classification Problem Date Documented Date Episodic/Chronic Abdominal pain (11 sources) Flank pain; Translations: [Unspecified abdominal pain] Onset: 01-28-2025 10-01-2020 Episodic Anxiety disorders (2 sources) Anxiety; Translations: [Generalized anxiety disorder] 04-28-2024 Chronic Deficiency and other anemia (20 sources) Hemoglobinopathy; Translations: [Other hemoglobinopathies] Onset: 08-12-2024 08-12-2024 Chronic Disorders of teeth and jaw (1 source) Disorder of teeth AND/OR supporting structures; Translations: [Other specified disorders of teeth and supporting structures] Onset: 05-12-2021 Episodic Early or threatened labor (5 sources) Uterine contractions present; Translations: [False labor, unspecified] Onset: 02-02-2025 01-31-2025 Episodic Essential hypertension (2 sources) Elevated blood pressure; Translations: [Essential (primary) hypertension] 02-10-2025 Chronic Genitourinary symptoms and ill-defined conditions (2 sources) Increased frequency of urination; Translations: [Frequency of micturition] 10-25-2023 Episodic Headache; including migraine (10 sources) Headache; Translations: [Headache] 02-10-2016 Episodic Immunizations and screening for infectious disease (17 sources) Patient encounter status; Translations: [Encounter for screening for COVID-19] Episodic Inflammatory diseases of female pelvic organs (7 sources) Bacterial vaginosis; Translations: [Acute vaginitis] Episodic Menstrual disorders (11 sources) Secondary physiologic amenorrhea; 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] 03-10-2019 Chronic Miscellaneous mental health disorders (1 source) Other specified eating disorder; Translations: [Pica] Onset: 02-17-2025 Chronic Mycoses (2 sources) Candidiasis of vagina; Translations: [Vaginal yeast infection] 02-15-2024 Episodic OB-related trauma to perineum and vulva (4 sources) First degree perineal laceration; Translations: [First degree perineal laceration during delivery] 02-07-2025 Episodic Other complications of (13 sources) Anemia of ; Translations: [Anemia complicating , unspecified trimester] Onset: 11-20-2024 11-20-2024 Chronic Other complications of (5 sources) Anemia in mother complicating , childbirth AND/OR puerperium; Translations: [Anemia complicating , third trimester] 11-23-2024 Chronic Other complications of (1 source) Anemia complicating , third trimester; Translations: [Anemia complicating , third trimester (HCC)] Onset: 12-17-2024 Chronic Other complications of (20 sources) High risk ; Translations: [Supervision of high risk , unspecified, first trimester] Onset: 06-26-2024 06-26-2024 Episodic Other complications of (20 sources) H/O: premature delivery; Translations: [Supervision of other high risk pregnancies, unspecified trimester] Onset: 06-26-2024 06-26-2024 Episodic Other complications of (20 sources) RhD negative; Translations: [Other specified related conditions, unspecified trimester] Onset: 08-03-2024 08-03-2024 Episodic Other complications of (2 sources) Vomiting of , unspecified; Translations: [Unspecified vomiting of , unspecified as to episode of care or not applicable] Onset: 01-18-2025 01-18-2025 Episodic Other complications of (1 source) Supervision of with history of pre-term labor, third trimester; Translations: [Supervision of with history of pre-term labor, third trimester] Onset: 02-16-2025 Episodic Other complications of (2 sources) Other specified related conditions, unspecified trimester; Translations: [Pelvic pain during (HCC)] Onset: 08-03-2024 Episodic Other complications of (1 source) Supervision of high risk , unspecified, third trimester; Translations: [Supervision of high risk in third trimester ([facility])] Onset: 12-03-2024 Episodic Other female genital disorders (16 sources) Vaginal discharge; Translations: [Other specified noninflammatory disorders of vagina] 02-06-2020 Episodic Other female genital disorders (1 source) Vaginal discomfort; Translations: [Unspecified condition associated with female genital organs and menstrual cycle] 02-20-2023 Episodic Other female genital disorders (2 sources) Vaginal odor; Translations: [Other specified noninflammatory disorders of vagina] 10-25-2023 Episodic Other female genital disorders (2 sources) History of premature labor; Translations: [Personal history of pre-term labor] 07-31-2024 Episodic Other female genital disorders (1 source) Lesion of vulva; Translations: [Other specified noninflammatory disorders of vulva and perineum] 12-03-2024 Episodic Other female genital disorders (2 sources) Other specified noninflammatory disorders of vagina; Translations: [Vaginal discharge] Onset: 06-26-2024 Episodic Other upper respiratory disease (10 sources) Allergic rhinitis; Translations: [Allergic rhinitis, unspecified] 03-12-2019 Chronic Ovarian cyst (11 sources) Cyst of ovary; Translations: [Unspecified ovarian cyst, unspecified side] 03-18-2018 Episodic Residual codes; unclassified (4 sources) Gestation period, 6 weeks; Translations: [Less than 8 weeks gestation of ] 06-26-2024 Episodic Residual codes; unclassified (4 sources) Gestation period, 16 weeks; Translations: [16 weeks gestation of ] 08-31-2024 Episodic Residual codes; unclassified (2 sources) Gestation period, 18 weeks; Translations: [18 weeks gestation of ] 09-14-2024 Episodic Residual codes; unclassified (2 sources) Gestation period, 19 weeks; Translations: [19 weeks gestation of ] 09-25-2024 Episodic Residual codes; unclassified (1 source) Gestation period, 23 weeks; Translations: [23 weeks gestation of ] 10-23-2024 Episodic Residual codes; unclassified (1 source) Gestation period, 27 weeks; Translations: [27 weeks gestation of ] 11-20-2024 Episodic Residual codes; unclassified (1 source) Gestation period, 29 weeks; Translations: [29 weeks gestation of ] 12-03-2024 Episodic Residual codes; unclassified (1 source) Gestation period, 33 weeks; Translations: [33 weeks gestation of ] 12-31-2024 Episodic Residual codes; unclassified (1 source) Gestation period, 35 weeks; Translations: [35 weeks gestation of ] 01-15-2025 Episodic Residual codes; unclassified (1 source) Gestation period, 36 weeks; Translations: [36 weeks gestation of ] 01-18-2025 Episodic Residual codes; unclassified (1 source) Gestation period, 37 weeks; Translations: [37 weeks gestation of ] 01-25-2025 Episodic Residual codes; unclassified (4 sources) Gestation period, 38 weeks; Translations: [38 weeks gestation of ] 01-31-2025 Episodic Residual codes; unclassified (4 sources) Gestation period, 39 weeks; Translations: [39 weeks gestation of ] 02-07-2025 Episodic Residual codes; unclassified (1 source) 38 weeks gestation of ; Translations: [38 weeks gestation of (HCC)] Onset: 02-01-2025 Episodic Residual codes; unclassified (1 source) 37 weeks gestation of ; Translations: [37 weeks gestation of (HCC)] Onset: 01-28-2025 Episodic Residual codes; unclassified (1 source) 36 weeks gestation of ; Translations: [36 weeks gestation of (HCC)] Onset: 01-18-2025 Episodic Residual codes; unclassified (1 source) 35 weeks gestation of ; Translations: [35 weeks gestation of (HCC)] Onset: 01-15-2025 Episodic Residual codes; unclassified (1 source) 33 weeks gestation of ; Translations: [33 weeks gestation of (HCC)] Onset: 12-31-2024 Episodic Residual codes; unclassified (1 source) 31 weeks gestation of ; Translations: [31 weeks gestation of (HCC)] Onset: 12-17-2024 Episodic Residual codes; unclassified (1 source) 29 weeks gestation of ; Translations: [29 weeks gestation of (HCC)] Onset: 12-03-2024 Episodic Sickle cell anemia (20 sources) Sickle cell trait; Translations: [Sickle-cell trait] Onset: 08-13-2024 08-13-2024 Chronic Sprains and strains (10 sources) Lower back injury; Translations: [Strain of muscle, fascia and tendon of lower back, initial encounter] 01-31-2017 Episodic Unclassified (20 sources) [facility] - [facility]ON Onset: 06-26-2024 06-26-2024 Unclassified (20 sources) Education - [place] Onset: 06-26-2024 06-26-2024 Past or Other Problems Problem Classification Problem Date Documented Date Episodic/Chronic Allergic reactions (20 sources) Allergy to penicillin; Translations: [Allergy status to penicillin] Onset: 06-26-2024 06-26-2024 Episodic Bacterial infection; unspecified site (20 sources) Mycoplasma infection; Translations: [Mycoplasma infection, unspecified site] Onset: 06-29-2024 08-30-2023 Episodic Comment on above: PCN allergy, suscept ible to vancomycin Nausea and vomiting (11 sources) Nausea; Translations: [Nausea] Onset: 05-20-2024 02-10-2016 Episodic Other complications of (1 source) Supervision of high risk , unspecified, second trimester; Translations: [Supervision of high risk in second trimester ([facility])] Onset: 10-23-2024 Episodic Other complications of (1 source) Supervision of other high risk pregnancies, unspecified trimester; Translations: [History of delivery, currently ([facility])] Onset: 06-26-2024 Episodic Other complications of (2 sources) Supervision of high risk , unspecified, first trimester; Translations: [Encounter for supervision of high risk in first trimester, antepartum ([facility])] Onset: 06-26-2024 Episodic Other female genital disorders (20 sources) Pruritus of vagina; Translations: [Other specified noninflammatory disorders of vagina] Onset: 06-26-2024 05-07-2024 Episodic Other female genital disorders (2 sources) Personal history of pre-term labor; Translations: [History of delivery] Onset: 08-31-2024 Episodic Other and delivery including normal (14 sources) with uncertain dates; Translations: [Encounter for supervision of normal , unspecified, first trimester] Onset: 06-26-2024 06-26-2024 Episodic Other screening for suspected conditions (not mental disorders or infectious disease) (2 sources) Cancer cervix screening status; Translations: [Encounter for screening for malignant neoplasm of cervix] Onset: 10-23-2024 06-26-2024 Episodic Residual codes; unclassified (1 source) 27 weeks gestation of ; Translations: [27 weeks gestation of ([facility])] Onset: 11-20-2024 Episodic Residual codes; unclassified (1 source) Unspecified blood type, Rh negative; Translations: [Rh negative state in antepartum period ([facility])] Onset: 08-03-2024 Episodic Residual codes; unclassified (1 source) 23 weeks gestation of ; Translations: [23 weeks gestation of ([facility])] Onset: 10-23-2024 Episodic Residual codes; unclassified (2 sources) Less than 8 weeks gestation of ; Translations: [6 weeks gestation of ([facility])] Onset: 07-31-2024 Episodic Residual codes; unclassified (1 source) 19 weeks gestation of ; Translations: [19 weeks gestation of (HCC)] Onset: 09-25-2024 Episodic Residual codes; unclassified (1 source) 18 weeks gestation of ; Translations: [18 weeks gestation of (HCC)] Onset: 09-14-2024 Episodic Residual codes; unclassified (1 source) 16 weeks gestation of ; Translations: [16 weeks gestation of ([facility])] Onset: 09-14-2024 Episodic Results Test Name Value Interpretation Reference Range Facility [facility] 2025 CNPN Telephone (OBGYWM) -------- MARLON GRANGER ([id number]) 1995 F Date Time Provider Department 02/22/25 ALONSO GARCIA OBGYWM During your visit today, we recorded the following information about you: Grisel Humphries RN 2025 11:07 AM Signed Patient had a on 02/07. Calling with several concerns. States that she thinks the Labetalol is causing her diarrhea. Takes three times a day. Will have an episode 30 min after taking and soon after eating or drinking anything. Took a break from the Labetalol for 2 days and noted improvement in her diarrhea. Has not tried taking Imodium. The diarrhea did not start until 02/16. Patient began med on 02/07. Also, her right breast has a clogged duct for 2 days. Warm to touch. Denies redness, fever, or chills. Heat makes it feel better. Encouraged massage too. She is still nursing and pumping on that side with no issues emptying her breast. In regards to BP, she missed her AM dose today. Usually takes it at 6AM, 2PM, and 10PM. States she will wait and take it at 2:00 PM. Did not take her BP this morning. A couple of times patient stated she will forget if she took it med in the AM. Last dose was 10 PM and her BP was 119/93 and 119/90 a little later. Next PP visit is 03/03. Please advise. CHICHO Mauricio Deidre, MD 2025 12:14 PM Signed Unlikely that labetalol causing diarrhea. Please encourage her to take as Rx TID. I would not change anything right now with her BPs Breast- so long as no fevers/redness, body aches etc- she should continue to massage and apply warm compresses to area. If she feels things are changing and develops s/sx of mastitis when please have her call in for appt. [place] diet- there are GI bugs going around now as well. Stay hydrated. Ok for imodium if needed. Kate Song RN 2025 12:26 PM Signed Patient notified and voiced understanding. Kate Song RN Allergies As of Date: 2025 Noted Allergy Reaction MONISTAT 1 (TIOCONAZOLE) 06/17/2024 5 - Intolerance Comments: Vaginal burning MOXIFLOXACIN 04/20/2024 5 - Intolerance Comments: Numbness PENICILLINS 06/07/2020 4 - Hives 14 - Other: See Comments Date Reviewed: 02/17/2025 Reviewed by: Grisel Shen MD - Fully Assessed Reason for Visit: Early [[id number]] Prescriptions as of 2025 - labetalol (TRANDATE) 200 mg tablet - Blood Pressure Monitor 1 each two times a day. - calcium carbonate (TUMS PO) Take by mouth. - famotidine (PEPCID) 20 mg tablet Take 1 tablet by mouth two times a day. - ferrous sulfate 220 mg (44 mg iron)/5 mL elixir Take 5 mL by mouth every other day. - VITAFUSION GUMMY TChS Take 1 tablet by mouth once daily. Problem List As Of Date 2025 Noted Resolved Penicillin allergy [Z88.0] 06/26/2024 History of delivery, currently *06/26/2024 02/17/2025 Group beta Strep positive [B95.1] 06/29/2024 02/17/2025 Rh negative state in antepartum period (HCC) [O*08/03/2024 02/17/2025 Abnormal hemoglobin [D58.2] 08/12/2024 Sickle cell trait [D57.3] 08/13/2024 Supervision of high risk in third tri*10/23/2024 02/17/2025 Anemia complicating , unspecified trim*11/20/2024 02/17/2025 Encounter Status:Closed by KATE SONG on 02/22/25 Normal [facility] [place] 02-18-2025 CNPN Telephone (OGFVWE) -------- MARLON GRANGER ([id number]) 1995 F Date Time Provider Department 02/18/25 NURSE MANAGER COMPLIANCE FRVW MOLINE OGFVWE During your visit today, we recorded the following information about you: Lili Bolaños, RN 02/18/2025 4:14 PM Signed PRAF submitted 02/18/25 Lili Bolaños RN Allergies As of Date: 02/18/2025 Noted Allergy Reaction MONISTAT 1 (TIOCONAZOLE) 06/17/2024 5 - Intolerance Comments: Vaginal burning MOXIFLOXACIN 04/20/2024 5 - Intolerance Comments: Numbness PENICILLINS 06/07/2020 4 - Hives 14 - Other: See Comments Date Reviewed: 02/17/2025 Reviewed by: Grisel Shen MD - Fully Assessed Reason for Visit: PRAF [4193] Prescriptions as of 02/18/2025 - labetalol (TRANDATE) 200 mg tablet - Blood Pressure Monitor 1 each two times a day. - calcium carbonate (TUMS PO) Take by mouth. - famotidine (PEPCID) 20 mg tablet Take 1 tablet by mouth two times a day. - ferrous sulfate 220 mg (44 mg iron)/5 mL elixir Take 5 mL by mouth every other day. - VITAFUSION GUMMY TChS Take 1 tablet by mouth once daily. Problem List As Of Date 02/18/2025 Noted Resolved Penicillin allergy [Z88.0] 06/26/2024 History of delivery, currently *06/26/2024 02/17/2025 Group beta Strep positive [B95.1] 06/29/2024 02/17/2025 Rh negative state in antepartum period (HCC) [O*08/03/2024 02/17/2025 Abnormal hemoglobin [D58.2] 08/12/2024 Sickle cell trait [D57.3] 08/13/2024 Supervision of high risk in third tri*10/23/2024 02/17/2025 Anemia complicating , unspecified trim*11/20/2024 02/17/2025 Encounter Status:Closed by LILI BOLAÑOS on 02/18/25 Normal [facility] CBC W Auto Differential pane l (Bld)on 02-17-2025 Basophils (Bld) [#/Vol] 0.10 10*3/uL Normal <0.11 [facility] Comment on above: Order Comment: Speci men Type: BLOOD SPECIMENOrdering Facility: [facility] Address: [address] [place] [address] Performed By: #### 5 7021-8 ####[facility] [id number] [place] [address] [place] Basophils/100 WBC (Bld) 1.1 % Normal [facility] Comment on above: Order Comment: Speci men Type: BLOOD SPECIMENOrdering Facility: [facility] Address: [address] [place] [address] Performed By: #### 5 7021-8 ####[facility] [id number] [place] [address] [place] Differential cell count method Nom (Bld) Auto Normal [facility] Comment on above: Order Comment: Speci men Type: BLOOD SPECIMENOrdering Facility: [facility] Address: [address] [place] [address] Performed By: #### 5 7021-8 ####[facility] MIKAELAWNCLIA [id number] [place] [address] [place] Eosinophils (Bld) [#/Vol] 0.42 10*3/uL Normal <0.46 [facility] Comment on above: Order Comment: Speci men Type: BLOOD SPECIMENOrdering Facility: [facility] Address: [address] [place] [address] Performed By: #### 5 7021-8 ####[facility] INSTITUTEUMESHLIA [id number] [place] [address] [place] Eosinophils/100 WBC (Bld) 4.5 % Normal [facility] Comment on above: Order Comment: Speci men Type: BLOOD SPECIMENOrdering Facility: [facility] Address: [address] [place] [address] Performed By: #### 5 7021-8 ####[facility] [id number] [place] [address] [place] Erythrocyte distribution width (RBC) [Ratio] 15.4 % High 11.5-15.0 [facility] Comment on above: Order Comment: Speci men Type: BLOOD SPECIMENOrdering Facility: [facility] Address: [address] [place] [address] Performed By: #### 5 7021-8 ####[facility] SPRINGFIELDLIA [id number] [place] [address] [place] Hematocrit (Bld) [Volume fraction] 38.9 % Normal 36.0-46.0 [facility] Comment on above: Order Comment: Speci men Type: BLOOD SPECIMENOrdering Facility: [facility] Address: [address] [place] [address] Performed By: #### 5 7021-8 ####[facility] INSTITUTENCLI [id number] [place] [address] [place] Hemoglobin (Bld) [Mass/Vol] 13.1 g/dL Normal 11.5-15.5 [facility] Comment on above: Order Comment: Speci men Type: BLOOD SPECIMENOrdering Facility: [facility] Address: [address] [place] [address] Performed By: #### 5 7021-8 ####[facility] INSTITUTENCA [id number] [place] [address] [place] Immature granulocytes (Bld) [#/Vol] 0.05 10*3/uL Normal <0.10 [facility] Comment on above: Order Comment: Speci men Type: BLOOD SPECIMENOrdering Facility: [facility] Address: [address] [place] [address] Performed By: #### 5 7021-8 ####[facility] [id number] [place] [address] [place] Immature granulocytes/100 WBC (Bld) 0.5 % Normal [facility] Comment on above: Order Comment: Speci men Type: BLOOD SPECIMENOrdering Facility: [facility] Address: [address] [place] [address] Performed By: #### 5 7021-8 ####[facility] [id number] [place] [address] [place] Lymphocytes (Bld) [#/Vol] 2.09 10*3/uL Normal 1.00-4.00 [facility] Comment on above: Order Comment: Speci men Type: BLOOD SPECIMENOrdering Facility: [facility] Address: [address] [place] [address] Performed By: #### 5 7021-8 ####[facility]UTENC[facility] [id number] [place] [address] [place] Lymphocytes/100 WBC (Bld) 22.4 % Normal [facility] Comment on above: Order Comment: Speci men Type: BLOOD SPECIMENOrdering Facility: [facility] Address: [address] [place] [address] Performed By: #### 5 7021-8 ####[facility] MIKAELAHIEU [id number] [address] MCH (RBC) [Entitic mass] 26.0 pg Normal 26.0-34.0 [facility] Comment on above: Order Comment: Speci men Type: BLOOD SPECIMENOrdering Facility: [facility] Address: [address] [place] [address] Performed By: #### 5 7021-8 ####[facility]UTENC[facility] [id number] [place] [address] [place] MCHC (RBC) [Mass/Vol] 33.7 g/dL Normal 30.5-36.0 [facility] Comment on above: Order Comment: Speci men Type: BLOOD SPECIMENOrdering Facility: [facility] Address: [address] [place] [address] Performed By: #### 5 7021-8 ####[facility] [id number] [place] [address] [place] MCV (RBC) [Entitic vol] 77.2 fL Low 80.0-100.0 [facility] Comment on above: Order Comment: Speci men Type: BLOOD SPECIMENOrdering Facility: [facility] Address: [address] [place] [address] Performed By: #### 5 7021-8 ####[facility] [id number] [place] [address] [place] Monocytes (Bld) [#/Vol] 0.79 10*3/uL Normal <0.87 [facility] Comment on above: Order Comment: Speci men Type: BLOOD SPECIMENOrdering Facility: [facility] Address: [address] [place] [address] Performed By: #### 5 7021-8 ####[facility]ITALWNCLIA [id number] [place] [address] [place] Monocytes/100 WBC (Bld) 8.4 % Normal [facility] Comment on above: Order Comment: Speci men Type: BLOOD SPECIMENOrdering Facility: [facility] Address: [address] [place] [address] Performed By: #### 5 7021-8 ####[facility] SPRINGFIELDLIA [id number] [place] [address] [place] Neutrophils (Bld) [#/Vol] 5.90 10*3/uL Normal 1.45-7.50 [facility] Comment on above: Order Comment: Speci men Type: BLOOD SPECIMENOrdering Facility: [facility] Address: [address] [place] [address] Performed By: #### 5 7021-8 ####[facility] [id number] [place] [address] [place] Neutrophils/100 WBC (Bld) 63.1 % Normal [facility] Comment on above: Order Comment: Speci men Type: BLOOD SPECIMENOrdering Facility: [facility] Address: [address] [place] [address] Performed By: #### 5 7021-8 ####[facility] SPR[facility]ELDL[facility] [id number] [place] [address] [place] Nucleated RBC (Bld) [#/Vol] 10*3/uL Normal <0.01 [facility] Comment on above: Order Comment: Speci men Type: BLOOD SPECIMENOrdering Facility: [facility] Address: [address] [place] [address] Performed By: #### 5 7021-8 ####[facility] INSTITUTENCLIA [id number] [place] [address] [place] Nucleated RBC/100 WBC (Bld) [Ratio] 0.0 /100 WBC Normal [facility] Comment on above: Order Comment: Speci men Type: BLOOD SPECIMENOrdering Facility: [facility] Address: [address] [place] [address] Performed By: #### 5 7021-8 ####[facility] [id number] [place] [address] [place] Platelet mean volume (Bld) [Entitic vol] 9.2 fL Normal 9.0-12.7 [facility] Comment on above: Order Comment: Speci men Type: BLOOD SPECIMENOrdering Facility: [facility] Address: [address] [place] [address] Performed By: #### 5 7021-8 ####[facility] [id number] [place] [address] [place] Platelets (Bld) [#/Vol] 488 10*3/uL High 150-400 [facility] Comment on above: Order Comment: Speci men Type: BLOOD SPECIMENOrdering Facility: [facility] Address: [address] [place] [address] Performed By: #### 5 7021-8 ####[facility] [id number] [place] [address] [place] RBC (Bld) [#/Vol] 5.04 10*6/uL Normal 3.90-5.20 [facility] Comment on above: Order Comment: Speci men Type: BLOOD SPECIMENOrdering Facility: [facility] Address: [address] [place] [address] Performed By: #### 5 7021-8 ####[facility] INSTITUTENCLI [id number] [place] [address] [place] WBC (Bld) [#/Vol] 9.35 10*3/uL Normal 3.70-11.00 [facility] Comment on above: Order Comment: Speci men Type: BLOOD SPECIMENOrdering Facility: [facility] Address: [address] [place] [address] Performed By: #### 5 7021-8 ####[facility] AMRIK MCKEON [id number] [place] [id number] [place] CNPNon 02-10-2025 CNPN Telephone (OBGYWM) -------- MARLON GRANGER ([id number]) 1995 F Date Time Provider Department 02/10/25 WENDY EL During your visit today, we recorded the following information about you: Kelly Stern LPN 02/10/2025 2:12 PM Signed Patient had a 02/07/2025 and called stating that she was prescribed labetalol for her blood pressure prior to leaving the hospital and was suppose to have a prescription for a blood pressure monitor sent to [facility] [facility]. Patient states that [facility] does not have an order. Does patient need a b/p check this week? Wendy Le APRN.CNM 02/10/2025 3:04 PM Signed Order signed. CHILO Carr Lindsey, RN 02/10/2025 3:06 PM Signed Does she need BP check in the office this week? CHICHO Starks Courtney, APRN.CNM 02/10/2025 4:31 PM Signed Sorry, I thought the unit would provide her a blood pressure cuff. I sent an order in for one. She may need reminded that she needs seen next week in office for BP check. Please assist with scheduling. CHILO Mark Lindsey, RN 02/10/2025 4:35 PM Signed Patient notified and voiced understanding. 1 week PP/BP check scheduled. Kate Song RN Allergies As of Date: 02/10/2025 Noted Allergy Reaction MONISTAT 1 (TIOCONAZOLE) 06/17/2024 5 - Intolerance Comments: Vaginal burning MOXIFLOXACIN 04/20/2024 5 - Intolerance Comments: Numbness PENICILLINS 06/07/2020 4 - Hives 14 - Other: See Comments Date Reviewed: 02/01/2025 Reviewed by: Nuvia Bolden MA - Fully Assessed Reason for Visit: Care [85] Primary Visit Diagnosis:High blood pressure affecting , antepartum (HCC) [O16.9] Order(s):Blood Pressure Monitor1 each two times a day.Disp: 1 eachRfl: 0 SPHYG/BP JIM W CUFF AND STET [[id number]] Order #: [id number] Prescriptions as of 02/10/2025 - Blood Pressure Monitor 1 each two times a day. - calcium carbonate (TUMS PO) Take by mouth. - famotidine (PEPCID) 20 mg tablet Take 1 tablet by mouth two times a day. - ferrous sulfate 220 mg (44 mg iron)/5 mL elixir Take 5 mL by mouth every other day. - VITAFUSION GUMMY TChS Take 1 tablet by mouth once daily. Problem List As Of Date 02/10/2025 Noted Resolved Penicillin allergy [Z88.0] 06/26/2024 History of delivery, currently *06/26/2024 Group beta Strep positive [B95.1] 06/29/2024 Rh negative state in antepartum period [O26.899*08/03/2024 Abnormal hemoglobin [D58.2] 08/12/2024 Sickle cell trait [D57.3] 08/13/2024 Supervision of high risk in third tri*10/23/2024 Anemia complicating , unspecified trim*11/20/2024 Prescriptions ordered this encounter Disp Refills Start End BLOOD PRESSURE MONITOR KIT 1 ea* 0 02/10/2025 Route: Misc Si each two times a day. Encounter Status:Closed by TATA CLINE on 02/10/25 Normal [facility] Absolute lymphocyte countOrd ered By: Wendy Le on 02-07-2025 Lymphocytes Auto (Unsp spec) [#/Vol] 3.17 10*3/uL 0.83-4.51 [facility] Absolute neutrophil countOrd ered By: Wendy Le on 02-07-2025 Neutrophils (Bld) [#/Vol] 12.6 10*3/uL High 2.0-7.7 [facility] Anion gap in Serum or Plasma Ordered By: Wendy Le on 02-07-2025 Anion gap [Moles/Vol] 10 mmol/L 5-15 [facility] Automated lymphocyte count a s percentage of total leukocytesOrdered By: Wendy Le on 02-07-2025 Lymphocytes/100 WBC Auto (Unsp spec) 18.3 % Low 19-41 [facility] BUN/creatinine ratioOrdered By: Wendy Le on 02-07-2025 Urea nitrogen/Creatinine [Mass ratio] 8.0 mg/mg Low 10-20 [facility] Basophil percentageOrdered B y: Wendy Le on 02-07-2025 Basophils/100 WBC (Bld) 0.5 % 0-1 [facility] Bilirubin, totalOrdered By: Wendy Le on 02-07-2025 Bilirubin [Mass/Vol] 0.26 mg/dL 0.00-1.30 [facility] CBC W/Diff, Automatedon 01-12 Absolute Lymph 3.17 X10 3/uL Normal 0.83-4.51 [facility] Comment on above: Performed By: #### Jacob TS, L100.0100 #### [facility] [address] [place], [address] Absolute Neut 12.6 X10 3/uL High 2.0-7.7 [facility] Comment on above: Performed By: #### Jacob TS, L100.0100 #### [facility] [address] [place], [address] Basophils/100 WBC (Bld) 0.5 % Normal 0-1 [facility] Comment on above: Performed By: #### Jacob TS, L100.0100 #### [facility] [address] [place], [address] Eosinophils/100 WBC (Bld) 0.8 % Normal 0-5 [facility] Comment on above: Performed By: #### Jacob CALLES, L100.0100 #### [facility] [address] [place], [address] Erythrocyte distribution width (RBC) [Ratio] 14.5 % Normal 11.6-14.6 [facility] Comment on above: Performed By: #### Jacob CALLES, L100.0100 #### [facility] [address] [place], [address] Hematocrit (Bld) [Volume fraction] 38.4 % Normal 37-47 [facility] Comment on above: Performed By: #### Jacob CALLES, L100.0100 #### [facility] [address] [place], [address] Hemoglobin (Bld) [Mass/Vol] 12.7 g/dL Normal 12.0-15.0 [facility] Comment on above: Performed By: #### Jacob CALLES, L100.0100 #### [facility] [address] [place], [address] IG% 1.200 High 0.0-0.9 [facility] Comment on above: Result Comment: IG% - Immature Granulocytes (promyelocytes, myelocytes and metamyelocytes) > 1% indicates that a LEFT SHIFT is Present. Performed By: #### Jacob CALLES, L100.0100 #### [facility] [address] [place], [address] Lymphocytes/100 WBC (Bld) 18.3 % Low 19-41 [facility] Comment on above: Performed By: #### Jacob CALLES, L100.0100 #### [facility] [address] [place], [address] MCH (RBC) [Entitic mass] 26.1 pg Low 27.0-32.0 [facility] Comment on above: Performed By: #### Jacob CALLES, L100.0100 #### [facility] [address] [place], [address] MCHC (RBC) [Mass/Vol] 33.1 g/dL Normal 32-36 [facility] Comment on above: Performed By: #### Jacob CALLES, L100.0100 #### [facility] [address] [place], [address] MCV (RBC) [Entitic vol] 78.9 fL Low 81-99 [facility] Comment on above: Performed By: #### Jacob CALLES, L100.0100 #### [facility] [address] [place], [address] Monocytes/100 WBC (Bld) 6.6 % Normal 0-10 [facility] Comment on above: Performed By: #### Jacob CALLES, L100.0100 #### [facility] [address] [place], [address] Neutrophils/100 WBC (Bld) 72.6 % High 47-70 [facility] Comment on above: Performed By: #### Jacob CALLES, L100.0100 #### [facility] [address] [place], [address] Nucleated RBC (Bld) [#/Vol] 0 10*3/uL Normal 0-5 [facility] Comment on above: Performed By: #### Jacob CALLES, L100.0100 #### [facility] [address] [place], [address] Platelet mean volume (Bld) [Entitic vol] 10.2 fL Normal 6.2-12.0 [facility] Comment on above: Performed By: #### Jacob CALLES, L100.0100 #### [facility] [address] [place], [address] Platelets (Bld) [#/Vol] 408 10*3/uL Normal 150-450 [facility] Comment on above: Performed By: #### B TS, L100.0100 #### [facility] [address] [place], [address] RBC (Bld) [#/Vol] 4.87 10*6/uL Normal 4.2-5.4 [facility] Comment on above: Performed By: #### B STEVAN, L100.0100 #### [facility] [address] [place], [address] RDW SD 41.3 fl Normal 35.1-43.9 [facility] Comment on above: Performed By: #### B TS, L100.0100 #### [facility] [address] [place], [address] WBC (Bld) [#/Vol] 17.3 10*3/uL High 4.4-11.0 [facility] Comment on above: Performed By: #### Jacob TS, L100.0100 #### [facility] [address] [place], [address] Carbon dioxide, total [Moles /volume] in Central venous bloodOrdered By: Wendy Le on 02-07-2025 CO2 [Moles/Vol] 20.3 mmol/L Low 21.0-32.0 [facility] Chloride assayOrdered By: Jaswant Le on 02-07-2025 Chloride [Moles/Vol] 107 mmol/L 98-108 [facility] Comprehensive Metabolic Prof ilon 02-07-2025 Albumin [Mass/Vol] 3.3 g/dL Low 3.5-5.0 [facility] Comment on above: Performed By: #### L 500.4050 #### [facility] [address] [place], [address] Albumin/Globulin [Mass ratio] 1.1 {ratio} Normal 0.9-2.4 [facility] Comment on above: Performed By: #### L 500.4050 #### [facility] [address] [place], [address] ALK PHOS 210 U/L High 35-104 [facility] Comment on above: Performed By: #### L 500.4050 #### [facility] [address] [place], [address] ALT [Catalytic activity/Vol] 10 U/L Normal <=34 [facility] Comment on above: Performed By: #### L 500.4050 #### [facility] [address] [place], [address] AST [Catalytic activity/Vol] 29 U/L Normal <=31 [facility] Comment on above: Performed By: #### L 500.4050 #### [facility] [address] [place], [address] Bilirubin [Mass/Vol] 0.26 mg/dL Normal 0.00-1.30 [facility] Comment on above: Performed By: #### L 500.4050 #### [facility] [address] [place], [address] BUN/CRE 8.0 RATIO Low 10-20 [facility] Comment on above: Performed By: #### L 500.4050 #### [facility] [address] [place], [address] Calcium [Mass/Vol] 8.6 mg/dL Normal 7.6-11.0 [facility] Comment on above: Performed By: #### L 500.4050 #### [facility] [address] [place], [address] Chloride [Moles/Vol] 107 mmol/L Normal 98-108 [facility] Comment on above: Performed By: #### L 500.4050 #### [facility] [address] [place], [address] CO2 [Moles/Vol] 20.3 mmol/L Low 21.0-32.0 [facility] Comment on above: Performed By: #### L 500.4050 #### [facility] [address] [place], [address] Creatinine [Mass/Vol] 0.82 mg/dL Normal 0.70-1.20 [facility] Comment on above: Performed By: #### L 500.4050 #### [facility] [address] [place], [address] ECRCL 98.79 ml/min Normal 50-250 [facility] Comment on above: Performed By: #### L 500.4050 #### [facility] [address] [place], [address] GAP 10 Normal 5-15 [facility] Comment on above: Performed By: #### L 500.4050 #### [facility] [address] [place], [address] GFR/1.73 sq M.predicted among non-blacks MDRD (S/P/Bld) [Vol rate/Area] 100 mL/min/{1.73_m2} Normal >60 [facility] Comment on above: Result Comment: mL/m in/1.73m2 CKD-EPI Creatinine Equation (2020) Performed By: #### L 500.4050 #### [facility] [address] [place], [address] Globulin (S) [Mass/Vol] 3.0 g/dL Normal 2.2-4.2 [facility] Comment on above: Performed By: #### L 500.4050 #### [facility] [address] [place], [address] Glucose [Mass/Vol] 100 mg/dL High 70-99 [facility] Comment on above: Performed By: #### L 500.4050 #### [facility] [address] [place], [address] Potassium [Moles/Vol] 3.9 mmol/L Normal 3.3-5.1 [facility] Comment on above: Performed By: #### L 500.4050 #### [facility] [address] [place], [address] Sodium [Moles/Vol] 137 mmol/L Normal 133-145 [facility] Comment on above: Performed By: #### L 500.4050 #### [facility] [address] [place], [address] T PROT 6.3 g/dL Normal 5.9-8.4 [facility] Comment on above: Performed By: #### L 500.4050 #### [facility] [address] [place], [address] Urea nitrogen [Mass/Vol] 7 mg/dL Normal 4-19 [facility] Comment on above: Performed By: #### L 500.4050 #### [facility] [address] [place], [place], [address] Eosinophil percentageOrdered By: Wendy Le on 02-07-2025 Eosinophils/100 WBC (Bld) 0.8 % 0-5 [facility] Erythrocyte distribution wid th ratioOrdered By: Wendy Le on 02-07-2025 Erythrocyte distribution width (RBC) [Ratio] 14.5 % 11.6-14.6 [facility] Erythrocyte distribution wid th standard deviationOrdered By: Wendy Le on 02-07-2025 Erythrocyte distribution width (RBC) [Ratio] 41.3 fl 35.1-43.9 [facility] Glomerular filtration rate ( GFR) estimation/1.73 sq m using serum, plasma, or whole bOrdered By: Wendy Le on 02-07-2025 GFR/1.73 sq M.predicted among non-blacks MDRD (S/P/Bld) [Vol rate/Area] 100 mL/min/{1.73_m2} >60 [facility] Comment on above: mL/min/1.73m2 CKD-EP I Creatinine Equation (2020) H AND P Exam - OB/GYNon 01-12 H&P Exam - FOLLOW UP MANAGER [facility] Medical Records Department [address] [place] [address] H P Exam - FOLLOW UP MANAGER 02/07/25 1255 MR#: [id number] Acct: [id number] Name: MARLON GRANGER Rep #: [id number] : 1995 29 From: Wendy Le CNM PCP: Dr. Angeline Valderrama MD Status:ADM IN Location: [id number] HPI - General General Date of Admission: 02/07/25 HPI Narrative MARLON GRANGER, is a 29 F who presents at 39w1d with HERBER: 02/13/25. Presented with contractions increasing in strength and frequency. Upon triage went from 3cm to 6cm and admitted for labor. Maternal Data Information HERBER Calculator Estimated Delivery Date Method Current WG Current Estimate 02/13/25 Manual 39w 1d PFSH PFSH Home Medications ???Medication ???Instructions ???Recorded ???Last Taken ???Type vit no.95-ferrous 1 tab PO DAILY 02/07/25 0 02/06/25 21:00 History fumarate 28 mg-folic acid 800 mcg 1 TAB tablet () Allergy/AdvReac Type Severity Reaction Status Date / Time Penicillins Allergy Unknown Verified 02/07/25 12:43 Social History Smoking Status: Current every day smoker tobacco type: e-cigarettes History 2 Elective abortions Hx Para 1 Spontaneous abortions Hx # Term Pregnancies Ectopic pregnancies Hx # Pregnancies Multiple births # of living children NST FHR Rate Baby A Baseline: 130 Variability:: Moderate Accelerations:: 15 x 15 Decelerations:: Variable FHR Category:: Category II Uterine Activity:: every 2 minutes, strong ROS Constitutional Constitutional: Reports systems reviewed and no addt'l complaints, except as documented; Denies headache(s) Eyes Eyes: Denies acute decrease in peripheral vision, blurry vision or change in vision ENT HEENT: Reports systems reviewed and no addt'l complaints, except as documented Cardiovascular Cardiovascular: Denies chest pain or dizziness Respiratory/Chest Respiratory/Chest: Denies cough, dyspnea, dyspnea on exertion, shortness of breath at rest or shortness of breath with exertion Gastrointestinal Gastrointestinal: Denies abdominal pain, diarrhea, nausea or vomiting Genitourinary Genitourinary: Denies abdominal discomfort Musculoskeletal Musculoskeletal: Denies limited range of motion Integumentary Integumentary: Reports systems reviewed and no addt'l complaints, except as documented Neurologic Neurologic: Reports systems reviewed and no addt'l complaints, except as documented Psychiatric Psychiatric: Reports systems reviewed and no addt'l complaints, except as documented Endocrine Endocrinology: Reports systems reviewed and no addt'l complaints, except as documented Hematologic/Lymphatic Hematologic/Lymphatic: Reports systems reviewed and no addt'l complaints, except as documented Allergic/Immunologic Allergic/Immunologic: Reports systems reviewed and no addt'l complaints, except as documented Vital Signs Vital Signs Vital Signs: 02/07/25 12:20 02/07/25 12:20 02/07/25 12:36 Pulse Rate 117 H Blood Pressure 155/89 H 142/93 H BP Systolic 155 142 BP Diastolic 89 93 Pulse Ox 02/07/25 12:36 02/07/25 12:38 02/07/25 12:38 Pulse Rate 134 H 131 H Blood Pressure BP Systolic BP Diastolic Pulse Ox 97 Weight Weight: 159 lb 13.362 oz Body Mass Index (BMI) 27.4 Physical Exam Const alert and oriented x3 General Appearance: cooperative Orientation / Consciousness: awake, oriented to person, oriented to place and oriented to time Exam Limitations: no limitations HEENT normocephalic Head and Scalp: normal to inspection, normocephalic and atraumatic Face and Sinus: normal facial exam Eyes General Eye: normal appearance of both eyes Neck full ROM Chest Chest: symmetrical chest wall rise Resp normal respiratory effort and normal air movement Auscultation: clear to auscultation bilaterally Cardio regular rate, regular rhythm, S1 normal heart sound, S2 normal heart sound, no murmurs, no rub, no gallops and no clicks GI normal to inspection, nondistended, normoactive bowel sounds and non-tender appearance of the vagina normal Bladder / Kidney Exam: no CVA tenderness Manual OB Exam: estimated gestational size appropriate, presentation cephalic, dilated 8, effaced 80, station -1 and other SROM for large amount of meconium stained fluid Back/Spine normal ROM Extremity normal to inspection and full ROM Skin no rashes or lesions noted Neuro oriented x3, CN's II-XII intact bilaterally and moves all extremities Sensorium / Orientation: awake, alert and oriented to person Motor Exam: clonus absent Deep Tendon Reflexes: Rt Patellar (L4): 2+ and Lt Patellar (more content not included)... Normal [facility] Hematocrit Auto (Bld) [Volum e fraction]Ordered By: Wendy Le on 02-07-2025 Hematocrit (Bld) [Volume fraction] 38.4 % 37-47 [facility] Hemoglobin measurementOrdere d By: Wendy Le on 02-07-2025 Hemoglobin (Bld) [Mass/Vol] 12.7 g/dL 12.0-15.0 [facility] Immature granulocytes/100 WB C Auto (Bld)Ordered By: Wendy Le on 02-07-2025 Immature granulocytes/100 WBC (Bld) 1.200 % High 0.0-0.9 [facility] Comment on above: IG% - Immature Granu locytes (promyelocytes, myelocytes and metamyelocytes) > 1% indicates that a LEFT SHIFT is Present. Laboratory - Chemistry and C hemistry - challengeOrdered By: Wendy Le on 02-07-2025 AST [Catalytic activity/Vol] 29 U/L <32 [facility] MCV (mean corpuscular volume ) determinationOrdered By: Wendy Le on 02-07-2025 MCV (RBC) [Entitic vol] 78.9 fL Low 81-99 [facility] MR/OB.VAGDELIon 02-07-2025 [facility] Medical Records Department [address] [place] [address] OB Vaginal Delivery 02/07/25 1339 MR#: [id number] Acct: [id number] Name: MARLON GRANGER Rep #: [id number] : 1995 29 From: Wendy Le CNM PCP: Dr. Angeline Valderrama MD Status:ADM IN Location: [id number] Assessment Plan (1) Sickle cell trait: (2) Rh negative state in antepartum period: (3) Positive GBS test: COMMENT: PCN allergy, susceptible to vancomycin (4) Vaginal delivery: (5) First degree perineal laceration: (6) Lactating mother: Maternal Data Information HERBER Calculator Estimated Delivery Date Method Current WG Current Estimate 02/13/25 Manual 39w 1d Vaginal Delivery Maternal Presentation Maternal Presentation: Active Labor and Spontaneous Rupture of Membranes Vaginal Delivery Information Procedure Performed: Spontaneous Vaginal Delivery Surgeon/Practitioner: Wendy Le Date of Procedure: 02/07/25 Pre-Procedure Diagnosis: Active labor, MEC, SROM Post-Procedure Diagnosis: , first degree perineal laceration Type of anesthesia: None Estimated Blood Loss: 300 ml Time of Delivery: 13:23 Findings Description of procedure: Progressed to complete with urge to push. Nothing for pain management. of viable female over first degree perineal laceration . APGARS 8,9 respectively. head delivered with body immediately forthcoming. Placed on maternal abdomen, strong cry. Mouth and nares suctioned for secretions. Pitocin started for active 3rd stage management. Cord doubly clamped and cut by sister after pulsations ceased, delayed cord clamping. Placenta delivered intact via foote, 3 vessel cord intact. Perineum inspected and revealed intact degree perineal laceration. Repaired with 3.0 vicryl rapide one figure of 8 stitch, consented to no anesthesia. Fundus firm and hemostasis achieved. EBL 300ml. Vaginal sweep completed by me, sponge and instrument correct. Mom and baby stable, planning to breastfeed. notified of delivery. Presentation: Vertex and JEMIMA Amniotic Membrane Rupture Type: Spontaneous Amniotic Fluid Description: Thick meconium Placental Delivery Description: Spontaneous Placenta Disposition: [facility] Specimen collected: No Cord Vessel Description: 3 Vessels Cord Entanglement: None A Gender: Female (1 minute): 8 (5 minute): 9 Delayed Cord Clamping: Yes Eeo Officer gaming host: No Post Vaginal Deli Medications given after delivery: IV Pitocin Episiotomy Description: None Laceration: Perineal Extension/lac and 1st degree Complication Complications: No 02/07/25 1343 Cosigner Signature (if applicable): CC: FRANKIE Le; Dr. Angeline Valderrama MD Signed Normal [facility] Mean corpuscular hemoglobin (MCH) determinationOrdered By: Wendy Le on 02-07-2025 MCH (RBC) [Entitic mass] 26.1 pg Low 27.0-32.0 [facility] Mean corpuscular hemoglobin concentration (MCHC) determinationOrdered By: Wendy Le on 02-07-2025 MCHC (RBC) [Mass/Vol] 33.1 g/dL 32-36 [facility] Mean platelet volume determi nationOrdered By: Wendy Le on 02-07-2025 Platelet mean volume (Bld) [Entitic vol] 10.2 fL 6.2-12.0 [facility] Monocyte percentageOrdered B y: Wendy Le on 02-07-2025 Monocytes/100 WBC (Bld) 6.6 % 0-10 [facility] Neutrophil percentageOrdered By: Wendy Le on 02-07-2025 Neutrophils/100 WBC (Bld) 72.6 % High 47-70 [facility] Nucleated red blood cell per centageOrdered By: Wendy Le on 02-07-2025 Nucleated RBC/100 WBC (Bld) [Ratio] 0 % 0-5 [facility] Platelet countOrdered By: Jaswant Le on 02-07-2025 Platelets (Bld) [#/Vol] 408 10*3/uL 150-450 [facility] Potassium measurement (mass/ volume)Ordered By: Wendy Le on 02-07-2025 Potassium (Unsp spec) [Mass/Vol] 3.9 mmol/L 3.3-5.1 [facility] RBC Auto (Bld) [#/Vol]Ordere d By: Wendy Le on 02-07-2025 RBC (Bld) [#/Vol] 4.87 10*6/uL 4.2-5.4 [facility] Serum creatinine measurement (mass/volume)Ordered By: Wendy Le on 02-07-2025 Creatinine [Mass/Vol] 0.82 mg/dL 0.70-1.20 [facility] Serum globulin measurementOr dered By: Wendy Le on 02-07-2025 Globulin (S) [Mass/Vol] 3.0 g/dL 2.2-4.2 [facility] Serum glucose measurement (m ass/volume)Ordered By: Wendy Le on 02-07-2025 Glucose [Mass/Vol] 100 mg/dL High 70-99 [facility] Serum or plasma alanine rhoades otransferase (ALT) measurementOrdered By: Wendy Le on 02-07-2025 ALT [Catalytic activity/Vol] 10 U/L <35 [facility] Serum or plasma albumin keven urement (mass/volume)Ordered By: Wendy Le on 02-07-2025 Albumin [Mass/Vol] 3.3 g/dL Low 3.5-5.0 [facility] Serum or plasma albumin/glob ulin mass ratioOrdered By: Wendy Le on 02-07-2025 Albumin/Globulin [Mass ratio] 1.1 {ratio} 0.9-2.4 [facility] Serum or plasma alkaline hanh sphatase measurementOrdered By: Wendy Le on 02-07-2025 ALP [Catalytic activity/Vol] 210 U/L High 35-104 [facility] Serum or plasma calcium keven urement (mass/volume)Ordered By: Wendy Le on 02-07-2025 Calcium [Mass/Vol] 8.6 mg/dL 7.6-11.0 [facility] Serum or plasma urea nitroge n measurement (mass/volume)Ordered By: Wendy Le on 02-07-2025 Urea nitrogen [Mass/Vol] 7 mg/dL 4-19 [facility] Sodium levelOrdered By: Lesly Le on 02-07-2025 Sodium [Moles/Vol] 137 mmol/L 133-145 [facility] Syphilis Antibodieson 2024 Syphilis Abs Non-Reactive Normal Nonreactive [facility] Comment on above: Performed By: #### L 509.8002 #### [facility] [place], [address] Total proteinOrdered By: Lia Le on 02-07-2025 Protein [Mass/Vol] 6.3 g/dL 5.9-8.4 [facility] Type AND Screenon 02-07-2025 Ab SCREEN GEL Negative Normal [facility] Comment on above: Order Comment: Labor Performed By: #### B TS, L100.0100 #### [facility] [address] [place], [address] White blood cell (WBC) count Ordered By: Wendy Le on 02-07-2025 WBC (Bld) [#/Vol] 17.3 10*3/uL High 4.4-11.0 [facility] Bilirubin Test strip Ql (U)O rdered By: Grisel Shen on 01-31-2025 Bilirubin Ql (U) Negative Negative [facility] Ketones Test strip Ql (U)Ord ered By: Grisel Shen on 01-31-2025 Ketones Ql (U) Negative Negative [facility] Nitrite Test strip Ql (U)Ord ered By: Grisel Shen on 01-31-2025 Nitrite Ql (U) Negative Negative [facility] OB Triage Physician Noteon 0 01-31-2025 OB Triage Physician Note [facility] Medical Records Department [address] [place] [address] OB Triage Physician Note 01/31/25 0645 MR#: [id number] Acct: [id number] Name: MARLON GRANGER Rep #: [id number] : 1995 29 From: Grisel Shen MD PCP: Dr. Angeline Valderrama MD Status:REG CLI Y Location: [place] [address] HPI - General General Date of Admission: 01/31/25 Date of Service: 01/31/25 Chief Complaint: contractions HPI Narrative MARLON GRANGER, is a 29 F who presents contractions not painful. No loss of fluid, no bleeding. Cervical exam unchanged. Maternal Data Information Final HERBER: 02/13/25 Gestational age: 38+2 PFSH PFSH Allergy/AdvReac Type Severity Reaction Status Date / Time Penicillins Allergy Unknown Verified 01/31/25 06:18 Social History Smoking Status: Current every day smoker tobacco type: e-cigarettes History 2 Elective abortions Hx Para 1 Spontaneous abortions Hx # Term Pregnancies Ectopic pregnancies Hx # Pregnancies Multiple births # of living children NST FHR Rate Baby A Baseline: 135 Variability:: Moderate Accelerations:: 15 x 15 Decelerations:: None NST Reactive:: Yes Uterine Activity:: Frequent Assessment Plan (1) 38 weeks gestation of : (2) Uterine contractions: PLAN: Plan Discharge home undelivered 01/31/25903 Date Grisel Shen MD Cosigner Signature (if applicable): Date CC: Dr. Angeline Valderrama MD; Dr. Grisel Shen MD Signed Normal [facility] Protein Test strip Ql (U)Ord ered By: Grisel Shen on 01-31-2025 Protein Ql (U) 15 mg/dl High Negative [facility] Urinalysis, Routine (Dipstic k)on 01-31-2025 BILIRUBIN URINE Negative Normal Negative [facility] Comment on above: Order Comment: CLEAN CATCH Performed By: #### L 400.2010 #### [facility] [address] [place], [place], [address] Clarity (U) Clear Normal Clear [facility] Comment on above: Order Comment: CLEAN CATCH Performed By: #### L 400.2010 #### [facility] [address] [place], [place], [address] Color (U) Straw Normal Yellow [facility] Comment on above: Order Comment: CLEAN CATCH Performed By: #### L 400.2010 #### [facility] [address] [place], [address] GLUCOSE, UR Normal Normal Normal [facility] Comment on above: Order Comment: CLEAN CATCH Performed By: #### L 400.2010 #### [facility] [address] [place], [place], [address] KETONE UR Negative Normal Negative [facility] Comment on above: Order Comment: CLEAN CATCH Performed By: #### L 400.2010 #### [facility] [address] [place], [address] LEUK ESTERASE Negative Normal Negative [facility] Comment on above: Order Comment: CLEAN CATCH Performed By: #### L 400.2010 #### [facility] [address] [place], [address] Nitrite Ql (U) Negative Normal Negative [facility] Comment on above: Order Comment: CLEAN CATCH Performed By: #### L 400.2010 #### [facility] [address] [place], [address] OCCULT BLOOD-UR Negative Normal Negative [facility] Comment on above: Order Comment: CLEAN CATCH Performed By: #### L 400.2010 #### [facility] [address] [place], [address] pH UR 6.0 Normal 5.0 - 8.0 [facility] Comment on above: Order Comment: CLEAN CATCH Performed By: #### L 400.2010 #### [facility] [address] [place], [address] PROT DIPSTX 15 mg/dl Abnormal Negative [facility] Comment on above: Order Comment: CLEAN CATCH Performed By: #### L 400.2010 #### [facility] [address] [place], [address] SP.GR. DIPSTX 1.010 Normal 1.002-1.030 [facility] Comment on above: Order Comment: CLEAN CATCH Performed By: #### L 400.2010 #### [facility] [address] [place], [address] UROBILI Normal Normal Normal [facility] Comment on above: Order Comment: CLEAN CATCH Performed By: #### L 400.2010 #### [facility] [address] [place], [address] Urine clarityOrdered By: Leann Shen on 01-31-2025 Clarity (U) Clear Clear [facility] Urine color determinationOrd ered By: Grisel Shen on 01-31-2025 Color (U) Straw Yellow [facility] Urine glucose detectionOrder ed By: Grisel Shen on 01-31-2025 Glucose Ql (U) Normal mg/dl Normal [facility] Urine leukocyte esterase det ection by dipstickOrdered By: Grisel Shen on 01-31-2025 Leukocyte esterase Test strip Ql (U) Negative Negative [facility] Urine pHOrdered By: Grisel Shen on 01-31-2025 pH (U) 6.0 [pH] 5.0 - 8.0 [facility] Urine specific gravity measu rementOrdered By: Grisel Shen on 01-31-2025 Specific gravity (U) [Rel density] 1.010 1.002-1.030 [facility] Urine urobilinogen measureme ntOrdered By: Grisel Shen on 01-31-2025 Urobilinogen Ql (U) Normal mg/dl Normal [facility] CNCOon 01-28-2025 CNCO Letter Text Normal [facility] CNPNon 01-28-2025 CNPN Telephone (OBGYWM) -------- MARLON GRANGER ([id number]) 1995 F Date Time Provider Department 01/28/25 MARLENE CRUZ OBGYWM During your visit today, we recorded the following information about you: Nancy Haile, CHICHO 01/28/2025 10:25 AM Signed 37w5d Patient calling [...] Encounter Status:Closed by GRISEL HUMPHRIES on 01/28/25 Normal [facility] URINE OB DIP B/Oon Glucose Ql (U) Negative Neg mg/dL [facility] Interpretation and review of laboratory results Normal [facility] Protein.monoclonal (U) [Mass/Vol] Negative Neg mg/dL [facility] Gp B Strep Vag Ql Culton S. agalactiae Org specific cx Ql (Vag fld) ORGANISM ID: 1 Positive for Streptococcus agalactiae (group b streptococcus) ORGANISM ID: 1 (STREPTOCOCCUS AGALACTIAE (GROUP B STREPTOCOCCUS)) ANTIBIOTIC INTERPRETATION ABDIAS STATUS REFERENCE RANGE Penicillin G S <=0.06 F Susceptible <=0.125 , Nonsusceptible >.125 Clindamycin R >16 F Susceptible <=0.25 , Intermediate >.25 , Resistant >.5 Vancomycin S <=0.50 F Susceptible <=1 , Nonsusceptible >1 Abnormal [facility] Comment on above: Performed By: #### 5 84-3, GBPCR ####[facility] [id number] [address] [place] ROUTINE, GROUP B ST REPTOCOCCUS BY PCRon 01-18-2025 ROUTINE, GROUP B STREPTOCOCCUS BY PCR Detected Abnormal [facility] Comment on above: Performed By: #### 5 84-3, GBPCR ####[facility] LABCLIA [id number] [place] [address] [place] CBC W Auto Differential pane l (Bld)on 01-15-2025 Basophils (Bld) [#/Vol] 0.07 10*3/uL Normal <0.11 [facility] Comment on above: Order Comment: Speci men Type: BLOOD SPECIMENOrdering Facility: [facility] Address: [address] [place] [address] Performed By: #### 5 7021-8 ####[facility] [id number] [place] [address] [place] Basophils/100 WBC (Bld) 0.4 % Normal [facility] Comment on above: Order Comment: Speci men Type: BLOOD SPECIMENOrdering Facility: [facility] Address: [address] [place] [address] Performed By: #### 5 7021-8 ####[facility] [id number] [place] [address] [place] Differential cell count method Nom (Bld) Auto Normal [facility] Comment on above: Order Comment: Speci men Type: BLOOD SPECIMENOrdering Facility: [facility] Address: [address] [place] [address] Performed By: #### 5 7021-8 ####[facility] [id number] [place] [address] [place] Eosinophils (Bld) [#/Vol] 0.32 10*3/uL Normal <0.46 [facility] Comment on above: Order Comment: Speci men Type: BLOOD SPECIMENOrdering Facility: [facility] Address: [address] [place] [address] Performed By: #### 5 7021-8 ####[facility] [id number] [place] [address] [place] Eosinophils/100 WBC (Bld) 1.9 % Normal [facility] Comment on above: Order Comment: Speci men Type: BLOOD SPECIMENOrdering Facility: [facility] [facility] Address: [address] [place] [address] Performed By: #### 5 7021-8 ####[facility] [id number] [place] [address] [place] Erythrocyte distribution width (RBC) [Ratio] 13.8 % Normal 11.5-15.0 [facility] Comment on above: Order Comment: Speci men Type: BLOOD SPECIMENOrdering Facility: [facility] Address: [address] [place] [address] Performed By: #### 5 7021-8 ####[facility] [id number] [place] [address] [place] Hematocrit (Bld) [Volume fraction] 34.0 % Low 36.0-46.0 [facility] Comment on above: Order Comment: Speci men Type: BLOOD SPECIMENOrdering Facility: [facility] Address: [address] [place] [address] Performed By: #### 5 7021-8 ####[facility] [id number] [place] [address] [place] Hemoglobin (Bld) [Mass/Vol] 11.7 g/dL Normal 11.5-15.5 [facility] Comment on above: Order Comment: Speci men Type: BLOOD SPECIMENOrdering Facility: [facility] Address: [address] [place] [address] Performed By: #### 5 7021-8 ####[facility] [id number] [place] [address] [place] Immature granulocytes (Bld) [#/Vol] 0.23 10*3/uL High <0.10 [facility] Comment on above: Order Comment: Speci men Type: BLOOD SPECIMENOrdering Facility: [facility] Address: [address] [place] [address] Performed By: #### 5 7021-8 ####[facility] [id number] [place] [address] [place] Immature granulocytes/100 WBC (Bld) 1.4 % Normal [facility] Comment on above: Order Comment: Speci men Type: BLOOD SPECIMENOrdering Facility: [facility] Address: [address] [place] [address] Performed By: #### 5 7021-8 ####[facility]STITUTE[facility] [id number] [place] [address] [place] Lymphocytes (Bld) [#/Vol] 1.98 10*3/uL Normal 1.00-4.00 [facility] Comment on above: Order Comment: Speci men Type: BLOOD SPECIMENOrdering Facility: [facility] Address: [address] [place] [address] Performed By: #### 5 7021-8 ####[facility] [id number] [place] [address] [place] Lymphocytes/100 WBC (Bld) 12.1 % Normal [facility] Comment on above: Order Comment: Speci men Type: BLOOD SPECIMENOrdering Facility: [facility] Address: [address] [place] [address] Performed By: #### 5 7021-8 ####[facility] [id number] [place] [address] [place] MCH (RBC) [Entitic mass] 27.9 pg Normal 26.0-34.0 [facility] Comment on above: Order Comment: Speci men Type: BLOOD SPECIMENOrdering Facility: [facility] Address: [address] [place] [address] Performed By: #### 5 7021-8 ####[facility] [id number] [place] [address] [place] MCHC (RBC) [Mass/Vol] 34.4 g/dL Normal 30.5-36.0 [facility] Comment on above: Order Comment: Speci men Type: BLOOD SPECIMENOrdering Facility: [facility] Address: [address] [place] [address] Performed By: #### 5 7021-8 ####[facility] [id number] [place] [address] [place] MCV (RBC) [Entitic vol] 81.0 fL Normal 80.0-100.0 [facility] Comment on above: Order Comment: Speci men Type: BLOOD SPECIMENOrdering Facility: [facility] Address: [address] [place] [address] Performed By: #### 5 7021-8 ####[facility] [id number] [place] [address] [place] Monocytes (Bld) [#/Vol] 1.66 10*3/uL High <0.87 [facility] Comment on above: Order Comment: Speci men Type: BLOOD SPECIMENOrdering Facility: [facility] Address: [address] [place] [address] Performed By: #### 5 7021-8 ####[facility] [id number] [place] [address] [place] Monocytes/100 WBC (Bld) 10.1 % Normal [facility] Comment on above: Order Comment: Speci men Type: BLOOD SPECIMENOrdering Facility: [facility] Address: [address] [place] [address] Performed By: #### 5 7021-8 ####[facility] INSTITUTENCLIA [id number] [place] [address] [place] Neutrophils (Bld) [#/Vol] 12.17 10*3/uL High 1.45-7.50 [facility] Comment on above: Order Comment: Speci men Type: BLOOD SPECIMENOrdering Facility: [facility] Address: [address] [place] [address] Performed By: #### 5 7021-8 ####[facility] [id number] [place] [address] [place] Neutrophils/100 WBC (Bld) 74.1 % Normal [facility] Comment on above: Order Comment: Speci men Type: BLOOD SPECIMENOrdering Facility: [facility] Address: [address] [place] [address] Performed By: #### 5 7021-8 ####[facility] [id number] [place] [address] [place] Nucleated RBC (Bld) [#/Vol] 10*3/uL Normal <0.01 [facility] Comment on above: Order Comment: Speci men Type: BLOOD SPECIMENOrdering Facility: [facility] Address: [address] [place] [address] Performed By: #### 5 7021-8 ####[facility] [id number] [place] [address] [place] Nucleated RBC/100 WBC (Bld) [Ratio] 0.0 /100 WBC Normal [facility] Comment on above: Order Comment: Speci men Type: BLOOD SPECIMENOrdering Facility: [facility] Address: [address] [place] [address] Performed By: #### 5 7021-8 ####[facility] [id number] [place] [address] [place] Platelet mean volume (Bld) [Entitic vol] 9.8 fL Normal 9.0-12.7 [facility] Comment on above: Order Comment: Speci men Type: BLOOD SPECIMENOrdering Facility: [facility] Address: [address] [place] [address] Performed By: #### 5 7021-8 ####[facility] SASKIANCL[facility] [id number] [place] [address] [place] Platelets (Bld) [#/Vol] 333 10*3/uL Normal 150-400 [facility] Comment on above: Order Comment: Speci men Type: BLOOD SPECIMENOrdering Facility: [facility] Address: [address] [place] [address] Performed By: #### 5 7021-8 ####[facility] INSTITUTENCLIA [id number] [place] [address] [place] RBC (Bld) [#/Vol] 4.20 10*6/uL Normal 3.90-5.20 [facility] Comment on above: Order Comment: Speci men Type: BLOOD SPECIMENOrdering Facility: [facility] Address: [address] [place] [address] Performed By: #### 5 7021-8 ####[facility] INSTITUTENCLIA [id number] [place] [address] [place] WBC (Bld) [#/Vol] 16.43 10*3/uL High 3.70-11.00 [facility] Comment on above: Order Comment: Speci men Type: BLOOD SPECIMENOrdering Facility: [facility] Address: [address] [place] [address] Performed By: #### 5 7021-8 ####[facility] INSTITUTENCLIA [id number] [place] [address] [place] URINE OB DIP B/Oon 5 Glucose Ql (U) Negative Neg mg/dL [facility] Interpretation and review of laboratory results Normal [facility] Protein.monoclonal (U) [Mass/Vol] Negative Neg mg/dL [facility] BACTERIAL VAGINOSIS NAATon 0 12-31-2024 Lactobacillus crispatus+gasseri+leann senii + Gardnerella vaginalis + Atopobium vaginae rRNA RC+probe Ql (Vag fld) Not detected Normal Not detected [facility] Comment on above: Order Comment: Speci men Type: SWABOrdering Facility: [facility] Address: [address] [place] [address] Performed By: #### 3 6902-5, BVAMP ####[facility] LABCLIA [id number] [place] [address] [place] C. trachomatis+N. gonorrhoea e DNA RC+probe Ql (Unsp spec)on 12-31-2024 C. trachomatis rRNA RC+probe Ql (Unsp spec) Not detected Normal Not detected [facility] Comment on above: Order Comment: Speci men Type: SWABOrdering Facility: [facility] Address: [address] [place] [address] Performed By: #### 3 6902-5, BVAMP ####[facility] LABCLIA [id number] [place] [address] [place] N. gonorrhoeae rRNA RC+probe Ql (Unsp spec) Not detected Normal Not detected [facility] Comment on above: Order Comment: Speci men Type: SWABOrdering Facility: [facility] Address: [address] [place] [address] Performed By: #### 3 6902-5, BVAMP ####[facility] LABCLIA [id number] [place] [address] [place] SHANNAN/TRICHOMONAS NAATon 0 12-31-2024 C. glabrata RNA RC+probe Ql (Vag fld) Not detected Normal Not detected [facility] Comment on above: Order Comment: Speci men Type: SWABOrdering Facility: [facility] Address: [address] [place] [address] Performed By: #### C VTV ####[facility] LABCLIA [id number] [place] Shannan sp DNA RC+probe Ql (Vag fld) Not detected Normal Not detected [facility] Comment on above: Order Comment: Speci men Type: SWABOrdering Facility: [facility] Address: [address] [place] [address] Result Comment: The Shannan species group target includes C. albicans, C. tropicalis, C. parapsilosis, and C. dubliniensis. Performed By: #### C VTV ####[facility] LABCLIA [id number] [address] [place] T. vaginalis DNA RC+probe Ql (Unsp spec) Not detected Normal Not detected [facility] Comment on above: Order Comment: Speci men Type: SWABOrdering Facility: [facility] Address: [address] [place] [address] Performed By: #### C VTV ####[facility] LABCLIA [id number] [address] [place] CNPNon 12-31-2024 [facility]) [facility] MARLON GRANGER ([id number]) 1995 F Date Time Provider Department 12/31/24 GRISEL SHEN OBGYW During your visit today, we recorded the following information about you: Nancy Haile RN 12/31/2024 4:42 PM Signed Orders for belly band and compression stockings received from [employer]. Patient requested them at visit today. Signed by and faxed back. Nancy Haile RN Allergies As of Date: 12/31/2024 Noted [...] , unspecified trim*11/20/2024 Encounter Status:Closed by NANCY HAILE on 12/31/24 Normal [facility] [place] 12-24-2024 [place] Telephone (OBGYWM) -------- MARLON GRANGER ([id number]) 1995 F Date Time Provider Department 12/24/24 JAMES ZAMORA During your visit today, we recorded the following information about you: Kelly Stern LPN 12/24/2024 4:09 PM Signed Order received from [employer] for breast pump. 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 COMPLIANCE [facility] OGFVWE During your visit today, we recorded the following information about you: Lili Bolaños RN 12/08/2024 11:41 AM Signed 3rd risk assessment form submitted 12/08/24 Lili Bolaños RN Allergies As of Date: 12/08/2024 Noted Allergy Reaction MONISTAT 1 (TIOCONAZOLE) 06/17/2024 5 - Intolerance Comments: Vaginal burning MOXIFLOXACIN 04/20/2024 5 - Intolerance Comments: Numbness PENICILLINS 06/07/2020 14 - Other: See Comments Date Reviewed: 12/03/2024 Reviewed by: James Zamora APRN.PUBLIC HEALTH EPIDEMIOLOGIST - Fully Assessed Reason for Visit: PRAF [...] Encounter Status:Closed by LILI BOLAÑOS on 12/08/24 Normal [facility] CNCIrene 12-07-2024 CNCO Letter Text Normal [facility] CNPNon 12-07-2024 CNPN Telephone (OBGYWM) -------- MARLON GRANGER ([id number]) 1995 F Date Time Provider Department 12/07/24 GRISEL SHEN During your visit today, we recorded the following information about you: Grisel Humphries RN 12/07/2024 9:16 AM Signed 30w2d Patient needs a dental letter to have a cavity filled. She will contact their office and then call us back with their fax number. Patient has a PCN allergy - make note of this on the letter for dentist. CHICHO Mauricio Tara, RN 12/07/2024 1:12 PM Signed Jailyn Trotter RN 12/07/2024 1:35 PM Signed Spoke to J re: letter. Omitted PCN and cephalosporins from [...] Date Reviewed: 12/03/2024 Reviewed by: James Zamora APRN.PUBLIC HEALTH EPIDEMIOLOGIST - Fully Assessed Reason for Visit: Letter [...] Encounter Status:Closed by JAILYN TROTTER on 12/07/24 Normal [facility] HSV+VZV DNA RC+probe Ql (Un sp spec)on 12-03-2024 HSV 1 DNA RC+probe Ql (Unsp spec) Not detected Normal Not Detected [facility] Comment on above: Order Comment: Speci men Type: SWABOrdering Facility: [facility] Address: [address] [place] [address] Performed By: #### 3 3027-4 ####[facility] LABCLIA [id number] [address] [place] HSV 2 DNA RC+probe Ql (Unsp spec) Not detected Normal Not Detected [facility] Comment on above: Order Comment: Speci men Type: SWABOrdering Facility: [facility] Address: [address] [place] [address] Performed By: #### 3 3027-4 ####[facility] LABCLIA [id number] [address] [place] VZV DNA RC+probe Ql (Unsp spec) Not detected Normal Not Detected [facility] Comment on above: Order Comment: Speci men Type: SWABOrdering Facility: [facility] Address: [address] [place] [address] Performed By: #### 3 3027-4 ####[facility] LABCLIA [id number] [address] OF [facility] [place] 11-23-2024 [facility] Tele[facility] (ELSA) -------- MARLON GRANGER ([id number]) 1995 F Date Time Provider Department 11/23/24 JAMES ZAMORA During your visit today, we recorded the following information about you: Jailyn Trotter, CHICHO 11/23/2024 12:57 PM Signed Pt calling re: [...] will need dispense amt changed. Spoke to CHIEF RADIATION THERAPIST and Rx pending as Pt will have recheck Iron level in 4 weeks. Pharmacist advised that new Rx will be sent. Updated GEO'Supp message sent to Pt. CHICHO Sykes Tara, [...] JAMES ZAMORA Pharmacy Information Pharmacy Address Telephone [facility] [address] [place] [address] Allergies As of Date: 11/23/2024 [...] Encounter Status:Closed by JAMES ZAMORA on 11/23/24 Normal [facility] Bacteria Ur Culton 5 Bacteria identified Cx Nom (U) ORGANISM ID: 1 <10,000 CFU/ml Normal urogenital magdalena Normal [facility] Comment on above: Performed By: #### 6 30-4 ####[facility] LABCLIA [id number] [place] [address] [place] CBC W Auto Differential pane l (Bld)on 11-20-2024 Basophils (Bld) [#/Vol] 0.08 10*3/uL Normal <0.11 [facility] Comment on above: Order Comment: Speci men Type: BLOOD SPECIMENOrdering Facility: [facility] Address: [address] [place] [address] Performed By: #### 5 7021-8 ####[facility] [id number] [place] [address] [place] Basophils/100 WBC (Bld) 0.4 % Normal [facility] Comment on above: Order Comment: Speci men Type: BLOOD SPECIMENOrdering Facility: [facility] Address: [address] [place] [address] Performed By: #### 5 7021-8 ####[facility] [id number] [place] [address] [place] Differential cell count method Nom (Bld) Auto Normal [facility] Comment on above: Order Comment: Speci men Type: BLOOD SPECIMENOrdering Facility: [facility] Address: [address] [place] [address] Performed By: #### 5 7021-8 ####[facility] [id number] [place] [address] [place] Eosinophils (Bld) [#/Vol] 0.22 10*3/uL Normal <0.46 [facility] Comment on above: Order Comment: Speci men Type: BLOOD SPECIMENOrdering Facility: [facility] Address: [address] [place] [address] Performed By: #### 5 7021-8 ####[facility] [id number] [place] [address] [place] Eosinophils/100 WBC (Bld) 1.2 % Normal [facility] Comment on above: Order Comment: Speci men Type: BLOOD SPECIMENOrdering Facility: [facility] Address: [address] [place] [address] Performed By: #### 5 7021-8 ####[facility] MIKAELAORLANDOJOSEFINA [id number] [place] [address] [place] Erythrocyte distribution width (RBC) [Ratio] 12.1 % Normal 11.5-15.0 [facility] Comment on above: Order Comment: Speci men Type: BLOOD SPECIMENOrdering Facility: [facility] Address: [address] [place] [address] Performed By: #### 5 7021-8 ####[facility] [id number] [place] [address] [place] Hematocrit (Bld) [Volume fraction] 29.3 % Low 36.0-46.0 [facility] Comment on above: Order Comment: Speci men Type: BLOOD SPECIMENOrdering Facility: [facility] Address: [address] [place] [address] Performed By: #### 5 7021-8 ####[facility] [id number] [place] [address] [place] Hemoglobin (Bld) [Mass/Vol] 10.2 g/dL Low 11.5-15.5 [facility] Comment on above: Order Comment: Speci men Type: BLOOD SPECIMENOrdering Facility: [facility] Address: [address] [place] [address] Performed By: #### 5 7021-8 ####[facility] INSTITUTENCLIA [id number] [place] [address] [place] Immature granulocytes (Bld) [#/Vol] 0.22 10*3/uL High <0.10 [facility] Comment on above: Order Comment: Speci men Type: BLOOD SPECIMENOrdering Facility: [facility] Address: [address] [place] [address] Performed By: #### 5 7021-8 ####[facility] MIKAELAROSALIA [id number] [place] [address] [place] Immature granulocytes/100 WBC (Bld) 1.2 % Normal [facility] Comment on above: Order Comment: Speci men Type: BLOOD SPECIMENOrdering Facility: [facility] Address: [address] [place] [address] Performed By: #### 5 7021-8 ####[facility] [id number] [place] [address] [place] Lymphocytes (Bld) [#/Vol] 2.38 10*3/uL Normal 1.00-4.00 [facility] Comment on above: Order Comment: Speci men Type: BLOOD SPECIMENOrdering Facility: [facility] Address: [address] [place] [address] Performed By: #### 5 7021-8 ####[facility] [id number] [place] [address] [place] Lymphocytes/100 WBC (Bld) 13.0 % Normal [facility] Comment on above: Order Comment: Speci men Type: BLOOD SPECIMENOrdering Facility: [facility] Address: [address] [place] [address] Performed By: #### 5 7021-8 ####[facility] INSTITUTENCLIA [id number] [place] [address] [place] MCH (RBC) [Entitic mass] 29.5 pg Normal 26.0-34.0 [facility] Comment on above: Order Comment: Speci men Type: BLOOD SPECIMENOrdering Facility: [facility] Address: [address] [place] [address] Performed By: #### 5 7021-8 ####[facility] INSTITUTENCLIA [id number] [place] [address] [place] MCHC (RBC) [Mass/Vol] 34.8 g/dL Normal 30.5-36.0 [facility] Comment on above: Order Comment: Speci men Type: BLOOD SPECIMENOrdering Facility: [facility] Address: [address] [place] [address] Performed By: #### 5 7021-8 ####[facility] [id number] [place] [address] [place] MCV (RBC) [Entitic vol] 84.7 fL Normal 80.0-100.0 [facility] Comment on above: Order Comment: Speci men Type: BLOOD SPECIMENOrdering Facility: [facility] Address: [address] [place] [address] Performed By: #### 5 7021-8 ####[facility] [id number] [place] [address] [place] Monocytes (Bld) [#/Vol] 1.23 10*3/uL High <0.87 [facility] Comment on above: Order Comment: Speci men Type: BLOOD SPECIMENOrdering Facility: [facility] Address: [address] [place] [address] Performed By: #### 5 7021-8 ####[facility] [id number] [place] [address] [place] Monocytes/100 WBC (Bld) 6.7 % Normal [facility] Comment on above: Order Comment: Speci men Type: BLOOD SPECIMENOrdering Facility: [facility] Address: [address] [place] [address] Performed By: #### 5 7021-8 ####[facility] [id number] [place] [address] [place] Neutrophils (Bld) [#/Vol] 14.13 10*3/uL High 1.45-7.50 [facility] Comment on above: Order Comment: Speci men Type: BLOOD SPECIMENOrdering Facility: [facility] Address: [address] [place] [address] Performed By: #### 5 7021-8 ####[facility] MIKAELAORLANDOUMESHLIA [id number] [place] [address] [place] Neutrophils/100 WBC (Bld) 77.5 % Normal [facility] Comment on above: Order Comment: Speci men Type: BLOOD SPECIMENOrdering Facility: [facility] Address: [address] [place] [address] Performed By: #### 5 7021-8 ####[facility] [id number] [place] [address] [place] Nucleated RBC (Bld) [#/Vol] 10*3/uL Normal <0.01 [facility] Comment on above: Order Comment: Speci men Type: BLOOD SPECIMENOrdering Facility: [facility] Address: [address] [place] [address] Performed By: #### 5 7021-8 ####[facility] [id number] [place] [address] [place] Nucleated RBC/100 WBC (Bld) [Ratio] 0.0 /100 WBC Normal [facility] Comment on above: Order Comment: Speci men Type: BLOOD SPECIMENOrdering Facility: [facility] Address: [address] [place] [address] Performed By: #### 5 7021-8 ####[facility]FIELDL[facility] [id number] [place] [address] [place] Platelet mean volume (Bld) [Entitic vol] 9.6 fL Normal 9.0-12.7 [facility] Comment on above: Order Comment: Speci men Type: BLOOD SPECIMENOrdering Facility: [facility] Address: [address] [place] [address] Performed By: #### 5 7021-8 ####[facility] [id number] [place] [address] [place] Platelets (Bld) [#/Vol] 317 10*3/uL Normal 150-400 [facility] Comment on above: Order Comment: Speci men Type: BLOOD SPECIMENOrdering Facility: [facility] Address: [address] [place] [address] Performed By: #### 5 7021-8 ####[facility] INSTITUTENCLIA [id number] [place] [address] [place] RBC (Bld) [#/Vol] 3.46 10*6/uL Low 3.90-5.20 [facility] Comment on above: Order Comment: Speci men Type: BLOOD SPECIMENOrdering Facility: [facility] Address: [address] [place] [address] Performed By: #### 5 7021-8 ####[facility] [id number] [place] [address] [place] WBC (Bld) [#/Vol] 18.26 10*3/uL High 3.70-11.00 [facility] Comment on above: Order Comment: Speci men Type: BLOOD SPECIMENOrdering Facility: [facility] Address: [address] [place] [address] Performed By: #### 5 7021-8 ####[facility]INGFIELDLIA [id number] [place] [address] [place] Ferritin SerPl-mCncon 2024 Ferritin [Mass/Vol] 10.5 ng/mL Low 14.7-205.1 [facility] Comment on above: Order Comment: Speci men Type: BLOOD SPECIMENOrdering Facility: [facility] Address: [address] [place] [address] Performed By: #### 2 276-4, 93293-0 ####[facility] LABCLIA [id number] [place] [id number] [place] GESTATIONAL GLUCOSE SCREEN, 1-HOUR, 50 GRAM, NON-FASTINGon 11-20-2024 Glucose [Mass/Vol] 110 mg/dL Normal 74-134 [facility] Comment on above: Order Comment: Speci men Type: BLOOD SPECIMENOrdering Facility: [facility] Address: [address] [place], [place] [id number] Result Comment: [facility] Congress of Obstetricians and Gynecologists (Robin/Rubin) guidelines state a gestational diabetes mellitus positive screen is made, in women not previously diagnosed with overt diabetes, when the 1 hr plasma glucose level is equal to or above 140 mg/dL. The [facility] Acetylene Torch Operator and [facility] recommends a 135 mg/dL cutoff. Performed By: #### G LTGST ####[facility] [id number] [place] [address] [place] Iron and Iron binding capaci ty panelon 11-20-2024 Iron [Mass/Vol] 37 ug/dL Low 41-186 [facility] Comment on above: Order Comment: Speci men Type: BLOOD SPECIMENOrdering Facility: [facility] Address: [address] [place] [address] Performed By: #### 2 276-4, 49350-4 ####[facility] LABIA [id number] [place] [id number] [place] Iron binding capacity [Mass/Vol] >537 High 232-386 [facility] Comment on above: Order Comment: Speci men Type: BLOOD SPECIMENOrdering Facility: [facility] Address: [address] [place] [address] Performed By: #### 2 276-4, 28146-4 ####[facility] LABCLIA [id number] [place] [id number] [place] Iron/TIBC [Molar ratio] <6.9 Low 15.0-57.0 [facility] Comment on above: Order Comment: Speci men Type: BLOOD SPECIMENOrdering Facility: [facility] Address: [address] [place] [address] Performed By: #### 2 276-4, 56512-8 ####[facility] LABCLIA [id number] [place] [address] [place] Reagin and Treponema pallidu m IgG and IgM [Interp]on 11-20-2024 T. pallidum IgG+IgM IA Ql (S) Non-Reactive Normal Nonreactive [facility] Comment on above: Order Comment: Speci men Type: BLOOD SPECIMENOrdering Facility: [facility] Address: [address] [place] [address] Performed By: #### 7 3752-8 ####[facility] LABIA [id number] [place] [address] [place] Reagin+T pallidum IgG+IgM Se rPl-Impon 11-20-2024 Reagin and Treponema pallidum IgG and IgM [Interp] Cannot exclude recent Treponemal infection if specimen collected within 7-10 days after appearance of suspect lesions or 2-3 weeks after an exposure. Clinical correlation is required. Normal [facility] Comment on above: Order Comment: Speci men Type: BLOOD SPECIMENOrdering Facility: [facility] Address: [address] [place] [address] Performed By: #### 7 3752-8 ####[facility] LABCLIA [id number] [place] [address] [place] TYPE + SCREEN PRENATALon ABO B Normal [facility] Comment on above: Order Comment: Speci men Type: BLOOD SPECIMEN [facility] Address: [address] [place] [address] Performed By: #### T SPN #### [facility] CLIA [id number] [address] [place] [address] [place] Rh Nom (Bld) Negative Normal [facility] Comment on above: Order Comment: Speci men Type: BLOOD SPECIMEN [facility] Address: [address] [place] [address] Performed By: #### T SPN #### [facility] CLIA [id number] [address] [place] [address] TYPE AND SCREEN EXPIRATION 11/23/2024 23:59 Normal [facility] Comment on above: Order Comment: Speci men Type: BLOOD SPECIMEN [facility] Address: [address] [place] [address] Performed By: #### T SPN #### [facility] CLIA [id number] [address] [place] [address] CNPNon 10-26-2024 CNPN Telephone (OGFVWE) -------- MARLON GRANGER ([id number]) 1995 F Date Time Provider Department 10/26/24 [facility] During your visit today, we recorded the following information about you: Lili Bolaños RN 10/26/2024 8:35 AM Signed 2nd risk assessment form submitted 10/26/24 Lili Bolaños RN Allergies As of Date: 10/26/2024 Noted Allergy Reaction MONISTAT 1 (TIOCONAZOLE) 06/17/2024 5 - Intolerance Comments: Vaginal burning MOXIFLOXACIN 04/20/2024 5 - Intolerance Comments: Numbness PENICILLINS 06/07/2020 14 - Other: See Comments Date Reviewed: 10/23/2024 Reviewed by: James Zamora APRN.PUBLIC HEALTH EPIDEMIOLOGIST - Fully Assessed Reason for Visit: PRAF [...] Encounter Status:Closed by LILI BOLAÑOS on 10/26/24 Normal [facility] BACTERIAL VAGINOSIS NAATon 0 - Lactobacillus crispatus+gasseri+leann senii + Gardnerella vaginalis + Atopobium vaginae rRNA RC+probe Ql (Vag fld) Not detected Normal Not detected [facility] Comment on above: Order Comment: Speci men Type: SWABOrdering Facility: [facility] Address: [address] [place] [address] Performed By: #### C VTV, BVAMP ####[facility] LABCLIA [id number] [address] [place] SHANNAN/TRICHOMONAS NAATon 0 09-25-2024 C. glabrata RNA RC+probe Ql (Vag fld) Not detected Normal Not detected [facility] Comment on above: Order Comment: Speci men Type: SWABOrdering Facility: [facility] Address: [address] [place] [address] Performed By: #### C VTV, BVAMP ####[facility] LABCLIA [id number] [address] [place] Shannan sp DNA RC+probe Ql (Vag fld) Not detected Normal Not detected [facility] Comment on above: Order Comment: Speci men Type: SWABOrdering Facility: [facility] Address: [address] [place] [address] Result Comment: The Shannan species group target includes C. albicans, C. tropicalis, C. parapsilosis, and C. dubliniensis. Performed By: #### C VTV, BVAMP ####[facility] LABCLIA [id number] [address] STATES [facility] T. vaginalis DNA RC+probe Ql (Unsp spec) Not detected Normal Not detected [facility] Comment on above: Order Comment: Speci men Type: SWABOrdering Facility: [facility] Address: [address] [place] [address] Performed By: #### C VTV, BVAMP ####[facility] LABCLIA [id number] [address] STATES OF [facility] Examination level ultrasound on 09-25-2024 Indication Standard anatomic survey Sickle cell trait, History of delivery 35 weeks Impression The patient is referred for a standard anatomic survey. - Single, live, intrauterine . - biometry is consistent with the established gestational age. - No malformations were visualized on a complete standard anatomic survey. - The amniotic fluid volume is normal amount. - The placenta is anterior. - The Transvaginal cervical length measures 41.7 mm with no evidence of funneling or other dynamic changes. - Not all structural malformations can be detected by ultrasound examination. Recommendations Additional follow-up as clinically indicated. Maternal Assessment Height 163 cm Height (ft) 5 ft Height (in) 4 in Physical Exam Initial weight (lb) 117 lb Initial BMI 20.08 kg/m Maternal assessment other: 2 Para 1 REMOTE READ Method Transabdominal and transvaginal ultrasound examination. View: Suboptimal view: limited by position Hodge . Number of fetuses: 1 Dating LMP on: 05/09/2024 GA by LMP 19 w + 6 d HERBER by LMP: 02/13/2025 GA by prior assessment 19 w + 6 d HERBER by prior assessment: 02/13/2025 Ultrasound examination on: 09/25/2024 GA by U/S based upon: AC, BPD, Femur, HC GA by U/S 19 w + 3 d HERBER by U/S: 02/16/2025 Assigned: based on stated HERBER, selected on 09/25/2024 Assigned GA 19 w + 6 d Assigned HERBER: 02/13/2025 General Evaluation Cardiac activity present. FHR 142 bpm. movements: present. Presentation: transverse head right Placenta: Placental site: anterior Umbilical cord: Cord vessels: 3 vessel cord Amniotic fluid: Amount of AF: normal amount. MVP 3.6 cm Growth Overview Exam date GA BPD (mm) HC (mm) AC (mm) FL (mm) HL (mm) EFW (g) 08/31/2024 16w 2d 33.8 56% 129.7 51% 95.9 31% 21 52% 142 25% 09/25/2024 19w 6d 41.5 7% 164.9 29% 144.5 42% 31.6 63% 31.3 74% 306 35% Biometry Standard BPD 41.5 mm 18w 4d 7% Hadlock OFD 60.6 mm 19w 5d 62% Nicolaides HC 164.9 mm 19w 1d 29% Gilmar Cerebellum tr 19.3 mm 18w 5d 31% Hill Nuchal fold 4.4 mm AC 144.5 mm 19w 5d 42% Hadlock Femur 31.6 mm 20w 0d 63% Gilmar Humerus 31.3 mm 20w 3d 74% Gilmar EFW 306 g 19w 4d 35% Hadlock EFW (lb) 0 lb EFW (oz) 11 oz EFW by: Hadlock (HC-AC-FL) Extended Regional Agronomist 4.7 mm CM 4.7 mm 41% Nicolaides Extremities / Bony Struc FL / HC 0.19 68% Hadlock Other Structures FHR 142 bpm Anatomy Cranium: normal Lateral ventricles: normal Choroid plexus: normal Midline falx: normal Cavum septi pellucidi: normal Cerebellum: normal Cisterna magna: normal Head / Neck Vermis: normal Neck: normal Nuchal fold: normal Lips: normal Profile: normal Nose: normal Face Maxilla: normal Mandible: normal Orbits: normal Lens: normal 4-chamber view: normal RVOT view: normal LVOT view: normal 3-vessel view: normal 7-pgcopo-fvyhypx view: normal Heart / Thorax Situs: situs solitus (normal) Aortic arch view: normal SVC: normal IVC: normal Cardiac axis: normal Rt lung: normal Lt lung: normal Diaphragm: normal Cord insertion: normal Stomach: normal Kidneys: normal Bladder: normal Genitals: normal Abdomen Abdom. wall: normal Cervical spine: normal Thoracic spine: normal Lumbar spine: normal Sacral spine: normal Arms: normal Legs: normal Rt upper arm: normal Rt forearm: normal Rt hand: normal Rt fingers: normal Lt upper arm: normal Lt forearm: normal Lt hand: normal Lt fingers: normal Rt upper leg: normal Rt lower leg: normal Rt foot: normal Lt upper leg: normal Lt lower leg: normal Lt foot: normal sex: female Wants to know sex: yes Maternal Structures Uterus / Cervix Uterus: Visualized Cervix: Visualized Approach: Transvaginal Cervical length 41.7 mm Ovaries / Tubes / Adnexa Rt ovary: Not visualized Lt ovary: Visualized Performed By: Kate Silva RDMS, RVT Read By: Nannette Carrillo M.D. MATERNAL MEDICINE [facility] Radiology Study observation (narrative) [facility] Examination level ultrasound on 09-14-2024 Indication Cervical length Sickle cell trait, History of delivery 35 weeks Impression - The patient presents for TVS for cervical length measurement to assess the patient's risk for . - Single, live, intrauterine . - The cervical length measures 40.2 mm with no evidence of funneling or other dynamic changes. Recommendations Continue planned cervical length surveillance Maternal Assessment Height 163 cm Height (ft) 5 ft Height (in) 4 in Physical Exam Initial weight (lb) 117 lb Initial BMI 20.08 kg/m Maternal assessment other: 2 Para 1 REMOTE READ Growth Overview Exam date GA BPD (mm) HC (mm) AC (mm) FL (mm) HL (mm) EFW (g) 08/31/2024 16w 2d 33.8 56% 129.7 51% 95.9 31% 21 52% 142 25% Method Transabdominal and transvaginal ultrasound examination Hodge . Number of fetuses: 1 Dating LMP on: 05/09/2024 GA by LMP 18 w + 2 d HERBER by LMP: 02/13/2025 GA by prior assessment 18 w + 2 d HERBER by prior assessment: 02/13/2025 Assigned: based on stated HERBER, selected on 08/31/2024 Assigned GA 18 w + 2 d Assigned HERBER: 02/13/2025 General Evaluation Cardiac activity present. FHR 141 bpm. movements: present. Presentation: transverse head left Placenta: Placental site: anterior Umbilical cord: Cord vessels: 3 vessel cord Amniotic fluid: Amount of AF: normal amount Anatomy Heart / Thorax Diaphragm: normal Stomach: normal Kidneys: normal Bladder: normal sex: female Wants to know sex: yes Maternal Structures Uterus / Cervix Cervix: Visualized Approach: Transvaginal Cervical length 40.2 mm Performed By: Kate Silva RDMS, RVT Read By: Nannette Carrillo M.D. MATERNAL MEDICINE [facility] Radiology Study observation (narrative) [facility] Examination level ultrasound on 08-31-2024 Indication Cervical length Sickle cell trait, History of delivery 35 weeks Impression - The patient presents for TVS for cervical length measurement to assess the patient's risk for . - Single, live, intrauterine . - The biometry is consistent with the assigned gestational dating. - The EFW is 142 g, at the 25%. AC is at the 31%. - Amniotic fluid volume is normal amount with an MVP of 3.4 cm. - The placenta is anterior. - No malformations visualized on a limited survey as detailed below. - The cervical length measures 41.7 mm with no evidence of funneling or other dynamic changes. Recommendations Return in 2 weeks for cervical length Maternal Assessment Height 163 cm Height (ft) 5 ft Height (in) 4 in Physical Exam Initial weight (lb) 117 lb Initial BMI 20.08 kg/m Maternal assessment other: 2 Para 1 REMOTE READ Method Transabdominal and transvaginal ultrasound examination. View: Suboptimal view: limited by early gestational age Hodge . Number of fetuses: 1 Dating LMP on: 05/09/2024 GA by LMP 16 w + 2 d HERBER by LMP: 02/13/2025 GA by prior assessment 16 w + 2 d HERBER by prior assessment: 02/13/2025 Ultrasound examination on: 08/31/2024 GA by U/S based upon: AC, BPD, Femur, HC GA by U/S 16 w + 1 d HERBER by U/S: 02/14/2025 Assigned: based on stated HERBER, selected on 08/31/2024 Assigned GA 16 w + 2 d Assigned HERBER: 02/13/2025 General Evaluation Cardiac activity present. FHR 138 bpm. movements: present. Presentation: cephalic Placenta: Placental site: anterior Umbilical cord: Cord vessels: 3 vessel cord Amniotic fluid: Amount of AF: normal amount. MVP 3.4 cm Growth Overview Exam date GA BPD (mm) HC (mm) AC (mm) FL (mm) HL (mm) EFW (g) 08/31/2024 16w 2d 33.8 56% 129.7 51% 95.9 31% 21 52% 142 25% Biometry Standard BPD 33.8 mm 16w 3d 56% Hadlock OFD 46.0 mm 16w 0d 62% Nicolaides HC 129.7 mm 16w 2d 51% Gilmar AC 95.9 mm 15w 5d 31% Hadlock Femur 21.0 mm 16w 2d 52% Gilmar EFW 142 g 15w 6d 25% Hadlock EFW (lb) 0 lb EFW (oz) 5 oz EFW by: Hadlock (HC-AC-FL) Extended Regional Agronomist 5.5 mm Extremities / Bony Struc FL / HC 0.16 31% Hadlock Other Structures FHR 138 bpm Anatomy Lateral ventricles: normal Choroid plexus: normal Cerebellum: normal Cisterna magna: normal Heart / Thorax Situs: situs solitus (normal) Diaphragm: normal Cord insertion: normal Stomach: normal Kidneys: normal Bladder: normal Cervical spine: normal Thoracic spine: normal Lumbar spine: normal Sacral spine: normal sex: female Wants to know sex: yes Maternal Structures Uterus / Cervix Cervix: Visualized Approach: Transvaginal Cervical length 41.7 mm Performed By: Kate Silva RDMS, RVT Read By: Nannette Carrillo M.D. MATERNAL MEDICINE [facility] Radiology Study observation (narrative) [facility] Examination level ultrasound on 08-04-2024 Indication First trimester anatomic survey Impression The patient is referred for a first trimester anatomy scan including nuchal translucency measurement as clinically indicated. - Single, live, intrauterine . - Lafferty rump length measurement is consistent with the established gestational age. - A qualitative screen of the nuchal translucency and other anatomic structures was unremarkable on a complete first trimester anatomic assessment. - Not all structural malformations can be detected by ultrasound examination. - An anatomic survey at 18-20 weeks is recommended given no identified risk factors. REMOTE READ Maternal Structures: Right Ovary: Size 31 mm x 18 mm x 15 mm Left Ovary: Size 32 mm x 17 mm x 15 mm Recommendations - An anatomic survey at 18-20 weeks is recommended given no identified risk factors. Maternal Assessment Height 163 cm Height (ft) 5 ft Height (in) 4 in Physical Exam Initial weight (lb) 117 lb Initial BMI 20.08 kg/m Maternal assessment other: 2 Para 1 Method Transabdominal ultrasound examination Hodge . Number of fetuses: 1 Dating LMP on: 05/09/2024 GA by LMP 11 w + 6 d HERBER by LMP: 02/13/2025 GA by prior assessment 11 w + 6 d HERBER by prior assessment: 02/13/2025 Ultrasound examination on: 07/31/2024 GA by U/S based upon: CRL GA by U/S 12 w + 1 d HERBER by U/S: 02/11/2025 Assigned: based on stated HERBER, selected on 07/31/2024 Assigned GA 11 w + 6 d Assigned HERBER: 02/13/2025 General Evaluation Cardiac activity present Placenta: anterior Cord vessels: 3 vessel cord Amniotic fluid: normal amount Biometry Standard FHR 148 bpm CRL 55.6 mm 12w 1d 58% Hadlock First Trimester Anatomy Calvarium: normal Falx cerebri: normal Choroid plexus: normal Profile: normal Nasal bone: normal Retronasal triangle: normal Maxilla: normal Mandible: normal Nuchal translucency: Unremarkable Situs: normal Cardiac position: normal Cardiac axis: normal 4-chamber view: normal 4-chamber view with color: normal 2-yotmdo-buvpeuq view: normal Abdominal cord insertion: normal Stomach: normal Kidneys: normal Bladder: normal Color doppler of perivesical umbilical arteries: normal Vertebral alignment: normal Arms: normal Hands: normal Legs: normal Feet: normal Maternal Structures Uterus / Cervix Uterus: Visualized Uterus length 118 mm Uterus width 97 mm Uterus height 91 mm Uterus Vol 545.9 cm Ovaries / Tubes / Adnexa Rt ovary: Visualized Rt ovary D1 31 mm Rt ovary D2 18 mm Rt ovary D3 15 mm Rt ovary Vol 4.2 cm Lt ovary: Visualized Lt ovary D1 32 mm Lt ovary D2 17 mm Lt ovary D3 15 mm Lt ovary Vol 4.2 cm Performed By: Kate Silva, TAM, RVT Read By: Ahmed Ahmed, M.D. MATERNAL MEDICINE [facility] CBC W Auto Differential pane l (Bld)on 07-31-2024 Basophils (Bld) [#/Vol] 0.04 10*3/uL Normal <0.11 [facility] Comment on above: Order Comment: Speci men Type: BLOOD SPECIMENOrdering Facility: [facility] Address: [address] [place] [address] Performed By: #### 5 7021-8 ####[facility] [id number] [place] [address] [place] Basophils/100 WBC (Bld) 0.3 % Normal [facility] Comment on above: Order Comment: Speci men Type: BLOOD SPECIMENOrdering Facility: [facility] Address: [address] [place] [address] Performed By: #### 5 7021-8 ####[facility] [id number] [place] [address] [place] Differential cell count method Nom (Bld) Auto Normal [facility] Comment on above: Order Comment: Speci men Type: BLOOD SPECIMENOrdering Facility: [facility] Address: [address] [place] [address] Performed By: #### 5 7021-8 ####[facility] [id number] [place] [address] [place] Eosinophils (Bld) [#/Vol] 0.23 10*3/uL Normal <0.46 [facility] Comment on above: Order Comment: Speci men Type: BLOOD SPECIMENOrdering Facility: [facility] Address: [address] [place] [address] Performed By: #### 5 7021-8 ####[facility] [id number] [place] [address] [place] Eosinophils/100 WBC (Bld) 2.0 % Normal [facility] Comment on above: Order Comment: Speci men Type: BLOOD SPECIMENOrdering Facility: [facility] Address: [address] [place] [address] Performed By: #### 5 7021-8 ####[facility] [id number] [place] [address] [place] Hematocrit (Bld) [Volume fraction] 35.1 % Low 36.0-46.0 [facility] Comment on above: Order Comment: Speci men Type: BLOOD SPECIMENOrdering Facility: [facility] Address: [address] [place] [address] Performed By: #### 5 7021-8 ####[facility] [id number] [place] [address] [place] Immature granulocytes (Bld) [#/Vol] 0.05 10*3/uL Normal <0.10 [facility] Comment on above: Order Comment: Speci men Type: BLOOD SPECIMENOrdering Facility: [facility] Address: [address] [place] [address] Performed By: #### 5 7021-8 ####[facility] [id number] [place] [address] [place] Immature granulocytes/100 WBC (Bld) 0.4 % Normal [facility] Comment on above: Order Comment: Speci men Type: BLOOD SPECIMENOrdering Facility: [facility] Address: [address] [place] [address] Performed By: #### 5 7021-8 ####[facility] INSTITUTENCLIA [id number] [place] [address] [place] Lymphocytes (Bld) [#/Vol] 2.32 10*3/uL Normal 1.00-4.00 [facility] Comment on above: Order Comment: Speci men Type: BLOOD SPECIMENOrdering Facility: [facility] Address: [address] [place] [address] Performed By: #### 5 7021-8 ####[facility] CAMRYNLIA [id number] [place] [address] [place] Lymphocytes/100 WBC (Bld) 19.9 % Normal [facility] Comment on above: Order Comment: Speci men Type: BLOOD SPECIMENOrdering Facility: [facility] Address: [address] [place] [address] Performed By: #### 5 7021-8 ####[facility] INSTITUTERYANA [id number] [place] [address] [place] MCH (RBC) [Entitic mass] 29.4 pg Normal 26.0-34.0 [facility] Comment on above: Order Comment: Speci men Type: BLOOD SPECIMENOrdering Facility: [facility] Address: [address] [place] [address] Performed By: #### 5 7021-8 ####[facility] INSTITUTEJOSEFINA [id number] [place] [address] [place] MCHC (RBC) [Mass/Vol] 35.6 g/dL Normal 30.5-36.0 [facility] Comment on above: Order Comment: Speci men Type: BLOOD SPECIMENOrdering Facility: [facility] Address: [address] [place] [address] Performed By: #### 5 7021-8 ####[facility] INSTITUTEJOSEFINA [id number] [place] [address] [place] MCV (RBC) [Entitic vol] 82.6 fL Normal 80.0-100.0 [facility] Comment on above: Order Comment: Speci men Type: BLOOD SPECIMENOrdering Facility: [facility] Address: [address] [place] [address] Performed By: #### 5 7021-8 ####[facility] INSTITUTENCLIA [id number] [place] [address] [place] Monocytes (Bld) [#/Vol] 0.81 10*3/uL Normal <0.87 [facility] Comment on above: Order Comment: Speci men Type: BLOOD SPECIMENOrdering Facility: [facility] Address: [address] [place] [address] Performed By: #### 5 7021-8 ####[facility] INSTITUTENCA [id number] [place] [address] [place] Monocytes/100 WBC (Bld) 6.9 % Normal [facility] Comment on above: Order Comment: Speci men Type: BLOOD SPECIMENOrdering Facility: [facility] Address: [address] [place] [address] Performed By: #### 5 7021-8 ####[facility] INSTITUTENCLI [id number] [place] [address] [place] Neutrophils (Bld) [#/Vol] 8.23 10*3/uL High 1.45-7.50 [facility] Comment on above: Order Comment: Speci men Type: BLOOD SPECIMENOrdering Facility: [facility] Address: [address] [place] [address] Performed By: #### 5 7021-8 ####[facility] [id number] [place] [address] [place] Neutrophils/100 WBC (Bld) 70.5 % Normal [facility] Comment on above: Order Comment: Speci men Type: BLOOD SPECIMENOrdering Facility: [facility] Address: [address] [place] [address] Performed By: #### 5 7021-8 ####[facility] INSTITUTENCLIA [id number] [place] [address] [place] Nucleated RBC (Bld) [#/Vol] 10*3/uL Normal <0.01 [facility] Comment on above: Order Comment: Speci men Type: BLOOD SPECIMENOrdering Facility: [facility] Address: [address] [place] [address] Performed By: #### 5 7021-8 ####[facility] [id number] [place] [address] [place] Nucleated RBC/100 WBC (Bld) [Ratio] 0.0 /100 WBC Normal [facility] Comment on above: Order Comment: Speci men Type: BLOOD SPECIMENOrdering Facility: [facility] Address: [address] [place] [address] Performed By: #### 5 7021-8 ####[facility] INSTITUTENCLIKsenia [id number] [place] [address] [place] Platelet mean volume (Bld) [Entitic vol] 9.7 fL Normal 9.0-12.7 [facility] Comment on above: Order Comment: Speci men Type: BLOOD SPECIMENOrdering Facility: [facility] Address: [address] [place] [address] Performed By: #### 5 7021-8 ####[facility] INSTITUTENCA [id number] [place] [address] [place] Platelets (Bld) [#/Vol] 250 10*3/uL Normal 150-400 [facility] Comment on above: Order Comment: Speci men Type: BLOOD SPECIMENOrdering Facility: [facility] Address: [address] [place] [address] Performed By: #### 5 7021-8 ####[facility] INSTITUTENCLIA [id number] [place] [address] [place] RBC (Bld) [#/Vol] 4.25 10*6/uL Normal 3.90-5.20 [facility] Comment on above: Order Comment: Speci men Type: BLOOD SPECIMENOrdering Facility: [facility] Address: [address] [place] [address] Performed By: #### 5 7021-8 ####[facility] INSTITUTENCLIA [id number] [place] [address] [place] WBC (Bld) [#/Vol] 11.68 10*3/uL High 3.70-11.00 [facility] Comment on above: Order Comment: Speci men Type: BLOOD SPECIMENOrdering Facility: [facility] Address: [address] [place] [address] Performed By: #### 5 7021-8 ####[facility] INSTITUTENCA [id number] [place] [address] [place] Examination level ultrasound on 07-31-2024 Radiology Study observation (narrative) [facility] HB VARIANT HPLCon 07-31-2024 Hemoglobin HPLC and electrophoresis panel (Bld) Elution with the retention time of Hemoglobin A, Hemoglobin S and trace amounts of Hemoglobin F Normal [facility] Comment on above: Order Comment: Speci men Type: BLOOD SPECIMENOrdering Facility: [facility] Address: [address] [place] [address] Performed By: #### L [id number], SCKSOL, HGBPLC, HGBELEV ####[facility] LABCLIA [id number] [address] [place] HBV surface Ag Ser Qlon 07-12 HBV surface Ag Ql (S) Negative Normal Negative [facility] Comment on above: Order Comment: Speci men Type: BLOOD SPECIMENOrdering Facility: [facility] Address: [address] [place] [address] Performed By: #### 7 3752-8, 5195-3, 53085-9 ####[facility] LABCLIA [id number] [place] [address] [place] HCV Ab Ser Qlon 07-31-2024 HCV Ab Ql (S) Negative Normal Negative [facility] Comment on above: Order Comment: Speci men Type: BLOOD SPECIMENOrdering Facility: [facility] Address: [address] [place] [address] Result Comment: The result suggests no evidence of infection with Hepatitis C virus. Should recent infection be suspected, repeat testing may be considered 4-6 weeks after this draw. Performed By: #### 1 6128-1 ####[facility] LABCLIA [id number] [place] [address] [place] HGB ELECTROPHORESIS FOR EVAL (LAB ORDER)on 07-31-2024 Hemoglobin A (Bld) [Mass fraction] 57.8 % Low 96.2-98.0 [facility] Comment on above: Order Comment: Speci men Type: BLOOD SPECIMENOrdering Facility: [facility] Address: [address] [place] [address] Performed By: #### L [id number], SCKSOL, HGBPLC, HGBELEV ####[facility] LABCLIA [id number] [place] [address] [place] Hemoglobin A2 (Bld) [Mass fraction] 2.9 % Normal 2.0-3.1 [facility] Comment on above: Order Comment: Speci men Type: BLOOD SPECIMENOrdering Facility: [facility] Address: [address] [place] [address] Performed By: #### L [id number], SCKSOL, HGBPLC, HGBELEV ####[facility] LABCLIA [id number] [place] [address] [place] Hemoglobin Unsp Elph (Bld) [Mass fraction] Normal No abnormal hemoglobin identified. [facility] Comment on above: Order Comment: Speci men Type: BLOOD SPECIMENOrdering Facility: [facility] Address: [address] [place] [address] Result Comment: Abno rmal hemoglobin present. Hb S = 39.3%. Performed By: #### L [id number], SCKSOL, HGBPLC, HGBELEV ####[facility] LABCLIA [id number] [place] [address] [place] HGB EVALUATION CASCADE INTER [place] 07-31-2024 Hemoglobin pattern (Bld) [Interp] Reviewed by Bonita Evasn M.D., Ph.D Normal [facility] Comment on above: Order Comment: Speci men Type: BLOOD SPECIMENOrdering Facility: [facility] Address: [address] [place] [address] Performed By: #### L [id number], SCKSOL, HGBPLC, HGBELEV ####[facility] LABCLIA [id number] [place] [address] [place] INTERPRETATION (HGB EVAL) Normal [facility] Comment on above: Order Comment: Speci men Type: BLOOD SPECIMENOrdering Facility: [facility] Address: [address] [place] [address] Result Comment: Hemo globins were analyzed by capillary electrophoresis and CBC red cell parameters were reviewed. An abnormal hemoglobin was identified. Additional tests were therefore performed (high performance liquid chromatography (HPLC) and sickle solubility). Results consistent with sickle cell trait. Performed By: #### L [id number], SCKSOL, HGBPLC, HGBELEV ####[facility] LABCLIA [id number] [address] [place] HIV 1+2 Ab IA Qlon HIV 1 and 2 Ab IA.rapid Nom (S/P/Bld) Normal [facility] Comment on above: Order Comment: Speci men Type: BLOOD SPECIMENOrdering Facility: [facility] Address: [address] [place] [address] Result Comment: Test not indicated. Performed By: #### 7 3752-8, 5195-3, 81493-7 ####[facility] LABCLIA [id number] [address] [place] HIV 1+2 Ab+HIV1 p24 Ag IA Ql Non-Reactive Normal Nonreactive [facility] Comment on above: Order Comment: Speci men Type: BLOOD SPECIMENOrdering Facility: [facility] Address: [facility] [place] [address] Performed By: #### 7 3752-8, 5195-3, 54578-7 ####[facility] LAB[facility] [id number] [place] [address] [place] HIV immunoassay testing algorithm interpretation (S/P/Bld) [Interp] Normal [facility] Comment on above: Order Comment: Speci men Type: BLOOD SPECIMENOrdering Facility: [facility] Address: [address] [place] [address] Result Comment: No e vidence of HIV-1 or HIV-2 infection. Should recent infection be suspected, repeat testing may be considered 2-3 weeks after this draw. [place] Rev. Code 3701.243(E): This information has been [...] test results or diagnoses. Performed By: #### 7 3752-8, 5195-3, 77787-3 ####[facility] [id number] [place] [address] [place] HbA1c (Bld)on 07-31-2024 Average glucose Estimated from glycated hemoglobin (Bld) [Mass/Vol] 103 mg/dL Normal [facility] Comment on above: Order Comment: Speci men Type: BLOOD SPECIMENOrdering Facility: [facility] Address: [address] [place] [address] Result Comment: eAG: (Estimated average glucose) is a calculated value from HgbA1c and is community health program representative of the average blood glucose level in the last 2-3 month period. Performed By: #### 5 5454-3 ####[facility] LAB[facility] [id number] [address] [address] [place] HbA1c (Bld) [Mass fraction] 5.2 % Normal 4.3-5.6 [facility] Comment on above: Order Comment: Jose Luis forbes Type: BLOOD SPECIMENOrdering Facility: [facility] Address: [address] [place] [address] Result Comment: A he terozygous hemoglobin variant was possibly detected. Most heterozygous hemoglobin variants do not interfere with this assay. However, interpret this hemoglobin A1c result within the patient's clinical context, as the lifespan of red blood cells may be altered. If identification of a previously unidentified hemoglobin variant is clinically indicated, consider ordering the hemoglobin evaluation cascade test. [place] [employer] guidelines indicate that patients with HgbA1c in the range 5.7-6.4% are at increased risk for development of diabetes, and intervention by lifestyle modification may be beneficial. HgbA1c greater or equal to 6.5% is considered diagnostic of diabetes. Performed By: #### 5 5454-3 ####[facility] LABCLIA [id number] [place] [address] [place] [id number] PLUSon 07-31-2024 Cell-free DNA./Cell-free DNA.total Dosage of chromosome-specific cfDNA (cfDNA) [Molar fraction] 25% Normal [facility] Comment on above: Order Comment: Jose Luis forbes Type: BLOOD SPECIMENOrdering Facility: [facility] Address: [address] [place] [address] Performed By: #### M AT21 ####[facility] LABCLIA [id number] [place] [address] Chr 13+18+21+X+Y aneuploidy Dosage of chromosome-specific cfDNA Ql (cfDNA) Negative Normal [facility] Comment on above: Order Comment: Jose Luis forbes Type: BLOOD SPECIMENOrdering Facility: [facility] Address: [address] [place] [address] Performed By: #### M AT21 ####[facility] LABCLIA [id number] [place] [address] Chr 21 trisomy Dosage of chromosome-specific cfDNA Ql (cfDNA) Negative Normal [facility] Comment on above: Order Comment: Jose Luis forbes Type: BLOOD SPECIMENOrdering Facility: [facility] Address: [address] [place] [address] Performed By: #### M AT21 ####[facility] LABCLIA [id number] [place] [address] Chr X and Y aneuploidy risk Sequencing Ql (cfDNA) [Interp] Not detected Normal [facility] Comment on above: Order Comment: Speci men Type: BLOOD SPECIMENOrdering Facility: [facility] Address: [address] [place] [address] Result Comment: Not Detected Not Detected Performed By: #### M AT21 ####[facility] LABCLIA [id number] [place] [address] Citation Alen (Reference lab test) Comment Normal [facility] Comment on above: Order Comment: Speci men Type: BLOOD SPECIMENOrdering Facility: [facility] Address: [address] [place] [address] Result Comment: 1. P ashley TIRADO, et al. Jadyn Med. 2012;14(3):296-305. 2. Leonard CHUNG et al. Prenat Diag. 2013;33(6):591-597. 3. Phoenix C, et al. Clin Chem. 2015 Apr;61(4):608-616. 4. Daily TIRADO, et al. Jadyn Med. 2011;13(11):913-920. 5. ACOG/SMFM Practice Bulletin No. 226, Feb 2020. Performed By: #### M AT21 ####[facility] LABCLIA [id number] [place] [address] Gestational age Estimated from conception date Hodge Normal [facility] Comment on above: Order Comment: Speci men Type: BLOOD SPECIMENOrdering Facility: [facility] Address: [address] [place] [address] Performed By: #### M AT21 ####[facility] LABCLIA [id number] [place] [address] GESTATIONALAGE AGE > OR = 9W Yes Normal [facility] Comment on above: Order Comment: Speci men Type: BLOOD SPECIMENOrdering Facility: [facility] Address: [address] [place] [address] Performed By: #### M AT21 ####[facility] LABCLIA [id number] [place] [address] Laboratory comment Alen (Report) Comment Normal [facility] Comment on above: Order Comment: Jose Luis forbes Type: BLOOD SPECIMENOrdering Facility: [facility] Address: [address] [place] [address] Result Comment: The MaterniT(R) 21 PLUS laboratory-developed test (LDT) analyzes circulating cell-free DNA from a maternal blood sample. This test is used for screening purposes and not diagnostic. Clinical correlation is recommended. Validation data on twin pregnancies is limited and the ability of this test to detect aneuploidy in higher multiple gestations has not yet been validated. Performed By: #### M AT21 ####[facility] LABCLIA [id number] [place] [id number] materials director name Nom (Provider) Comment Normal [facility] Comment on above: Order Comment: Jose Luis forbes Type: BLOOD SPECIMENOrdering Facility: [facility] Address: [address] [place] [address] Result Comment: This specimen showed an expected representation of chromosome 21, 18 and 13 material. Clinical correlation is suggested. Comment Jorge Padilla MD, PhD, Director, [email or web address] Performed By: #### M AT21 ####[facility] LABCLIA [id number] [place] [id number] LIMITATIONS OF THE TEST Comment Normal [facility] Comment on above: Order Comment: Jose Luis forbes Type: BLOOD SPECIMENOrdering Facility: [facility] Address: [address] [place] [address] Result Comment: Main sanchez the results of these tests are highly reliable, discordant [...] (for example: Lovenox(R), Xaparin(R), Clexane(R) and Fragmin(R)). Performed By: #### M AT21 ####[facility] LABCLIA [id number] [place] [address] Monosomy X risk Dosage of chromosome-specific cfDNA Ql (Plasma cell-free+WBC DNA) [Interp] Not detected Normal [facility] Comment on above: Order Comment: Speci men Type: BLOOD SPECIMENOrdering Facility: [facility] Address: [address] [place] [address] Performed By: #### M AT21 ####[facility] LABCLIA [id number] [place] [address] NEGATIVE PREDICTIVE VALUE Note Normal [facility] Comment on above: Order Comment: Jose Luis forbes Type: BLOOD SPECIMENOrdering Facility: [facility] Address: [address] [place] [address] Result Comment: The Negative Predictive Value (NPV) for trisomy 21, 18, and 13 is greater than 99%. The NPV for SCA and ESS cannot be calculated as SCA and ESS are only reported when an abnormality is detected. Performed By: #### M AT21 ####[facility] LABCLIA [id number] [place] [id number] PERFORMANCE CHARACTERISTICS Note Normal [facility] Comment on above: Order Comment: Jose Luis forbes Type: BLOOD SPECIMENOrdering Facility: [facility] Address: [address] [place] [address] Result Comment: ! Sex ! Accuracy: 99.4% [...] ! ! ! * As reported in [facility] database nstd37 [https://www.ncbi.nlm.nih.gov/dbvar/studies/nstd37/ ] # Estimated Sensitivity. Sensitivity estimated across the observed size distribution of each syndrome [per [facility] database nstd37] and across the range of fractions observed in routine clinical NIPT. Actual sensitivity can also be influenced by other factors such as the size of the event, total sequence counts, amplification bias, or sequence bias. ## Hodge gestation only. Performed By: #### M AT21 ####[facility] LABKontagentIA [id number] [place] [address] POSITIVE PREDICTIVE VALUE N/A Normal [facility] Comment on above: Order Comment: Speci men Type: BLOOD SPECIMENOrdering Facility: [facility] Address: [address] [place] [address] Performed By: #### M AT21 ####[facility] LABCLIA [id number] [place] [address] Reference Lab Test Method Comment Normal [facility] Comment on above: Order Comment: Speci men Type: BLOOD SPECIMENOrdering Facility: [facility] Address: [address] [place] [address] Result Comment: See Notes Circulating cell-free DNA [...] and trisomy of chromosomes 16 and 22. Performed By: #### M AT21 ####[employer] [id number] [place] [address] Service comment (Unsp spec) [Interp] Comment Normal [facility] Comment on above: Order Comment: Speci men Type: BLOOD SPECIMENOrdering Facility: [facility] Address: [address] [place] [address] Result Comment: See Notes [employer] is a subsidiary of [employer] using the brand [employer]. This test was developed and its performance characteristics determined by [employer]. It has not been cleared or approved by the Food and Drug Administration. This laboratory is certified under the Clinical Laboratory Improvement Amendments (CLIA) as qualified to perform high complexity clinical laboratory testing and accredited by the [employer] (CAP). If there is future clinical need for adding MaterniT GENOME testing, this specimen will be available until term. [facility] samples will not be retained beyond 60 days. [facility] patients will have to send a new sample for re-sequencing ([facility] Test Code: 353306). Performed By: #### M AT21 ####[facility] LABCLIA [id number] [place] [address] Sex Dosage of chromosome-specific cfDNA Nom (cfDNA) Comment Normal [facility] Comment on above: Order Comment: Speci men Type: BLOOD SPECIMENOrdering Facility: [facility] Address: [address] [place] [address] Result Comment: Cons istent with Female Performed By: #### M AT21 ####[facility] LABCLIA [id number] [place] [address] Test performance information Alen (Unsp spec) Comment Normal [facility] Comment on above: Order Comment: Speci men Type: BLOOD SPECIMENOrdering Facility: [facility] Address: [address] [place] [address] Result Comment: The performance characteristics of the MaterniT(R) 21 PLUS laboratory-developed test (LDT) have been determined in a clinical validation study with women at increased risk for chromosomal aneuploidy.[1-4] Performed By: #### M AT21 ####[facility] LABCLIA [id number] [place] [address] Trisomy 13 risk Dosage of chromosome-specific cfDNA Ql (cfDNA) [Interp] Negative Normal [facility] Comment on above: Order Comment: Speci men Type: BLOOD SPECIMENOrdering Facility: [facility] Address: [address] [place] [address] Performed By: #### M AT21 ####[facility] LABCLIA [id number] [place] [address] Trisomy 18 risk Dosage of chromosome-specific cfDNA Ql (Plasma cell-free+WBC DNA) [Interp] Negative Normal [facility] Comment on above: Order Comment: Speci men Type: BLOOD SPECIMENOrdering Facility: [facility] Address: [address] [place] [address] Performed By: #### M AT21 ####[facility] LABCLIA [id number] [place] [address] RBC PARAMETERS FOR HB IDon 0 07-31-2024 Erythrocyte distribution width (RBC) [Ratio] 11.9 % Normal 11.5-15.0 [facility] Comment on above: Order Comment: Speci men Type: BLOOD SPECIMENOrdering Facility: [facility] Address: [address] [place] [address] Performed By: #### L [id number] ####[facility] LABCLIA [id number] [address] Performed By: #### 5 7021-8 ####[facility] [id number] [address] [place] Hematocrit (Bld) [Volume fraction] 35.4 % Low 36.0-46.0 [facility] Comment on above: Order Comment: Speci men Type: BLOOD SPECIMENOrdering Facility: [facility] Address: [address] [place] [address] Performed By: #### L [id number] ####[facility] LABIA [id number] [address] [place] Hemoglobin (Bld) [Mass/Vol] 12.5 g/dL Normal 11.5-15.5 [facility] Comment on above: Order Comment: Speci men Type: BLOOD SPECIMENOrdering Facility: [facility] Address: [address] [place] [address] Performed By: #### L [id number] ####[facility] LABIA [id number] [address] Performed By: #### 5 7021-8 ####[facility] [id number] [place] [address] [place] MCH (RBC) [Entitic mass] 29.7 pg Normal 26.0-34.0 [facility] Comment on above: Order Comment: Speci men Type: BLOOD SPECIMENOrdering Facility: [facility] Address: [address] [place] [address] Performed By: #### L [id number] ####[facility] LABCLIA [id number] [place] [address] [place] MCHC (RBC) [Mass/Vol] 35.3 g/dL Normal 30.5-36.0 [facility] Comment on above: Order Comment: Speci men Type: BLOOD SPECIMENOrdering Facility: [facility] Address: [address] [place] [address] Performed By: #### L [id number] ####[facility] LABCLIA [id number] [place] [address] [place] MCV (RBC) [Entitic vol] 84.1 fL Normal 80.0-100.0 [facility] Comment on above: Order Comment: Speci men Type: BLOOD SPECIMENOrdering Facility: [facility] Address: [address] [place] [address] Performed By: #### L [id number] ####[facility] LABIA [id number] [place] [address] [place] RBC (Bld) [#/Vol] 4.21 10*6/uL Normal 3.90-5.20 [facility] Comment on above: Order Comment: Speci men Type: BLOOD SPECIMENOrdering Facility: [facility] Address: [address] [place] [address] Performed By: #### L [id number] ####[facility] LABIA [id number] [place] [address] [place] RUBELLA IGG ANTIBODYon 07-31 RUBELLA IGG AB, QUAL Positive Normal Positive [facility] Comment on above: Order Comment: Speci men Type: BLOOD SPECIMENOrdering Facility: [facility] Address: [address] [place] [address] Result Comment: The result suggests recent or past exposure to Rubella virus or history of Rubella vaccination. Positive result may also be seen due to presence of passively-transferred antibodies. Please correlate with patient's history. Performed By: #### R [id number] ####[facility] LABCLIA [id number] [place] [id number] [place] Reagin and Treponema pallidu m IgG and IgM [Interp]on 07-31-2024 T. pallidum IgG+IgM IA Ql (S) Non-Reactive Normal Nonreactive [facility] Comment on above: Order Comment: Speci men Type: BLOOD SPECIMENOrdering Facility: [facility] Address: [address] [place] [address] Performed By: #### 7 3752-8, 5195-3, 93037-4 ####[facility] LABCLIA [id number] [place] [address] [place] Reagin+T pallidum IgG+IgM Se rPl-Impon 07-31-2024 Reagin and Treponema pallidum IgG and IgM [Interp] Cannot exclude recent Treponemal infection if specimen collected within 7-10 days after appearance of suspect lesions or 2-3 weeks after an exposure. Clinical correlation is required. Normal [facility] Comment on above: Order Comment: Speci men Type: BLOOD SPECIMENOrdering Facility: [facility] Address: [address] [place] [address] Performed By: #### 7 3752-8, 5195-3, 72201-5 ####[facility] LABIA [id number] [place] [address] [place] SICKLE PREP SCREENon 025 Hemoglobin S Ql (Bld) Positive Abnormal Negative [facility] Comment on above: Order Comment: Speci men Type: BLOOD SPECIMENOrdering Facility: [facility] Address: [address] [place] [address] Performed By: #### L [id number], SCKSOL, HGBPLC, HGBELEV ####[facility] LABIA [id number] [place] [address] [place] TYPE + SCREEN PRENATALon ABO B Normal [facility] Comment on above: Order Comment: Speci men Type: BLOOD SPECIMEN [facility] Address: [address] [place] [address] Performed By: #### T SPN #### [facility] CLIA [id number] [address] [place] [address] Rh Nom (Bld) Negative Normal [facility] Comment on above: Order Comment: Speci men Type: BLOOD SPECIMEN [facility] Address: [address] [place] [address] Performed By: #### T SPN #### [facility] CLIA [id number] [address] [place] [address] TYPE AND SCREEN EXPIRATION 08/03/2024 23:59 Normal [facility] Comment on above: Order Comment: Speci men Type: BLOOD SPECIMEN [facility] Address: [address] [place] [address] Performed By: #### T SPN #### [facility] CLIA [id number] [address] [place] [address] Lucille 07-21-2024 CNPN Telephone (OBGYWM) -------- MARLON GRANGER ([id number]) 1995 F Date Time Provider Department 07/21/24 GRISEL SHEN During your visit today, we [...] Date Reviewed: 06/26/2024 Reviewed by: James Zamora APRN.PUBLIC HEALTH EPIDEMIOLOGIST - Fully Assessed Reason for Visit: Spotting [...] Encounter Status:Closed by JAILYN TROTTER on 07/21/24 Normal [facility] Lucille 06-30-2024 CNPN Telephone (OGFVWE) -------- MARLON GRANGER ([id number]) 1995 F Date Time Provider Department 06/30/24 NURSE MANAGER COMPLIANCE [facility] OGFVWE During your visit today, we [...] Date Reviewed: 06/26/2024 Reviewed by: James Zamora APRN.PUBLIC HEALTH EPIDEMIOLOGIST - Fully Assessed Reason for Visit: PRAF [...] Encounter Status:Closed by LILI BOLAÑOS on 06/30/24 Normal [facility] BACTERIAL VAGINOSIS NAATon 0 06-26-2024 Lactobacillus crispatus+gasseri+leann senii + Gardnerella vaginalis + Atopobium vaginae rRNA RC+probe Ql (Vag fld) Detected Abnormal Not detected [facility] Comment on above: Order Comment: Speci men Type: SWABOrdering Facility: [facility] Address: [address] [place] [address] Performed By: #### Jacob MANZANARES, 86829-7 ####[facility] LABCLIA [id number] [place] [address] [place] Bacteria Ur Culton Bacteria identified Cx Nom (U) ORGANISM ID: 1 10,000 -<50,000 CFU/ml Normal urogenital magdalena Streptococcus agalactiae (Group B streptococcus) was identified in this specimen, which is clinically relevant if the individual is . Normal [facility] Comment on above: Performed By: #### 6 30-4 ####[facility] LABCLIA [id number] [place] [address] [place] C. trachomatis+N. gonorrhoea e DNA RC+probe Ql (Unsp spec)on 06-26-2024 C. trachomatis rRNA RC+probe Ql (Unsp spec) Not detected Normal Not detected [facility] Comment on above: Order Comment: Speci men Type: SWABOrdering Facility: [facility] Address: [address] [place] [address] Performed By: #### B VAMP, 58908-7 ####[facility] LABIA [id number] [place] [address] [place] N. gonorrhoeae rRNA RC+probe Ql (Unsp spec) Not detected Normal Not detected [facility] Comment on above: Order Comment: Speci men Type: SWABOrdering Facility: [facility] Address: [address] [place] [address] Performed By: #### B VAMP, 28665-8 ####[facility] LABCLIA [id number] [place] [address] [place] SHANNAN/TRICHOMONAS NAATon 0 06-26-2024 C. glabrata RNA RC+probe Ql (Vag fld) Not detected Normal Not detected [facility] Comment on above: Order Comment: Speci men Type: SWABOrdering Facility: [facility] Address: [address] [place] [address] Performed By: #### C VTV ####[facility] LABCLIA [id number] [place] [address] [place] Shannan sp DNA RC+probe Ql (Vag fld) Detected Abnormal Not detected [facility] Comment on above: Order Comment: Speci men Type: SWABOrdering Facility: [facility] Address: [address] [place] [address] Result Comment: The Shannan species group target includes C. albicans, C. tropicalis, C. parapsilosis, and C. dubliniensis. Performed By: #### C VTV ####[facility] LABCLIA [id number] [place] [address] [place] T. vaginalis DNA RC+probe Ql (Unsp spec) Not detected Normal Not detected [facility] Comment on above: Order Comment: Speci men Type: SWABOrdering Facility: [facility] Address: [address] [place] [address] Performed By: #### C VTV ####[facility] LABCLIA [id number] [place] [address] [place] PAP TESTon 06-26-2024 ADEQUACY Satisfactory for interpretation. Normal [facility] Comment on above: Order Comment: Speci men Type: FLUID SPECIMENOrdering Facility: [facility] Address: [address] [place] [address] Performed By: #### L [id number] ####[facility] LABCLIA [id number] [place] [address] [place] CASE REPORT Normal [facility] Comment on above: Order Comment: Speci men Type: FLUID SPECIMENOrdering Facility: [facility] Address: [address] [place] [address] Result Comment: Gyne cologic Cytology Report Case: [id number] Authorizing Provider: James Zamora APRN.PUBLIC HEALTH EPIDEMIOLOGIST Collected: 06/26/2024 10:54 AM Ordering Location: OB/Gynecology Received: 06/26/2024 12:02 PM First Screen: Clapacs, Pat Specimen: Pap Test, ThinPrep, Cervix Performed By: #### L [id number] ####[facility] LABCLIA [id number] [address] [address] [place] CLINICAL HISTORY, CYTOLOGY, SPOT FACER (Indicate Weeks) Normal [facility] Comment on above: Order Comment: Speci men Type: FLUID SPECIMENOrdering Facility: [facility] Address: [address] [place] [address] Performed By: #### L [id number] ####[facility] LABCLIA [id number] [address] [place] [address] [place] CYTOLOGY PAP OTHER INTERPRETATION Predominance of coccobacilli consistent with shift in vaginal magdalena. Normal [facility] Comment on above: Order Comment: Speci men Type: FLUID SPECIMENOrdering Facility: [facility] Address: [address] [place] [address] Performed By: #### L [id number] ####[facility] LABCLIA [id number] [place] [id number] [place] FINAL PERFORMING LAB Normal [facility] Comment on above: Order Comment: Speci men Type: FLUID SPECIMENOrdering Facility: [facility] Address: [address] [place] [address] Result Comment: Tech nical component, commercial fishing vessel operator screening performed at [facility], [address] [place] [address] [place] [address] CLIA# [id number] Diagnostic interpretation performed at [facility], [address] [place] [address] [place] [address] CLIA# [id number] Medical Research Associate: Khadar Camacho M.D. Performed By: #### L [id number] ####[facility] LABCLIA [id number] [address] [address] [place] INTERPRETATION, CYTOLOGY, SPOT FACER Normal [facility] Comment on above: Order Comment: Speci men Type: FLUID SPECIMENOrdering Facility: [facility] Address: [address] [place] [address] Result Comment: Nega tive for intraepithelial lesion or malignancy. at 1135 EST Performed By: #### L [id number] ####[facility] LABCLIA [id number] [place] [address] [place] LMP 05/09/2024 Normal [facility] Comment on above: Order Comment: Speci men Type: FLUID SPECIMENOrdering Facility: [facility] Address: [address] [place] [address] Performed By: #### L [id number] ####[facility] LABIA [id number] [place] [id number] [place] PAP DISCLAIMER COMMENT The Pap Smear is a screening test for cervical cancer. False negative results occur with all screening tests, emphasizing the need for rescreening at recommended intervals, and clinical correlation. Normal [facility] Comment on above: Order Comment: Speci men Type: FLUID SPECIMENOrdering Facility: [facility] Address: [address] [place] [address] Performed By: #### L [id number] ####[facility] LABIA [id number] [place] [address] [place] PAP PAPER CAP MACHINE OPERATOR COMMENT This specimen has be en analyzed by the ThinPrep Imaging System, an automated imaging and review system, which assists the laboratory in evaluating cells on ThinPrep Pap tests. Following automated imaging, selected guerra from every slide are reviewed by a commercial fishing vessel operator. Normal [facility] Comment on above: Order Comment: Speci men Type: FLUID SPECIMENOrdering Facility: [facility] Address: [address] [place] [address] Performed By: #### L [id number] ####[facility] LABIA [id number] [place] [id number] [place] Lucille 06-19-2024 SELVIN Telephone (UCWSTR) -------- MARLON GRANGER ([id number]) 1995 F Date Time Provider Department 06/19/24 GHISLAINE LAGUNA UCWSTR During your visit today, we recorded the following information about you: Ghislaine Laguna PA 06/19/2024 7:12 AM Signed Please call [...] Encounter Status:Closed by JENNIFER CARPENTER on 06/19/24 [facility] Telephone (UCWSTR) -------- MARLON GRANGER ([id number]) 1995 F Date Time Provider Department 06/18/24 GHISLAINE LAGUNA UCWSTR During your visit today, we recorded the following information about you: Ghislaine Laguna PA 06/18/2024 7:17 AM Signed Please contact patient and let her know her yeast swab came back positive. It appears she has side effects with Monistat. I have sent clotrimazole topical to pharmacy to try instead. 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 We are unable to do oral medication [...] Encounter Status:Closed by MALACHI MITCHELL on 06/18/24 Normal [facility] Telephone (OBGYWM) -------- MARLON GRANGER ([id number]) 1995 F Date Time Provider Department 06/18/24 JOSE SOTO During your visit today, we recorded the following information about you: Grisel Humphries RN 06/18/2024 4:57 PM Signed Patient seen at [facility] yesterday. LMP 05/09. Approximately 5w5d. [...] Fully Assessed Reason for Visit: Patient Question [5977] Prescriptions as of 06/19/2024 - clotrimazole (LOTRIMIN) 1 % vaginal cream Use 1 Applicatorful vaginally once daily for 7 days. Problem List As Of Date: 06/18/2024 (None) Encounter Status:Closed by KATE SONG on 06/19/24 Normal [facility] BACTERIAL VAGINOSIS NAATon 0 06-17-2024 Lactobacillus crispatus+gasseri+leann senii + Gardnerella vaginalis + Atopobium vaginae rRNA RC+probe Ql (Vag fld) Not detected Normal Not detected [facility] Comment on above: Order Comment: Speci men Type: SWABOrdering Facility: [facility] Address: [address] [place] [address] Performed By: #### 3 6902-5, BVAMP ####[facility] LABCLIA [id number] [place] [address] [place] Bacteria Ur Culton 5 Bacteria identified Cx Nom (U) CULTURE, URINE: Mixed microbiota, including predominantly: ORGANISM ID: 1 10,000 -<50,000 CFU/ml Streptococcus agalactiae (group b streptococcus) Additional susceptibility testing performed by request. ORGANISM ID: 1 (STREPTOCOCCUS AGALACTIAE (GROUP B STREPTOCOCCUS)) ANTIBIOTIC INTERPRETATION ABDIAS STATUS REFERENCE RANGE Penicillin G S 0.06 F Susceptible <=0.125 , Nonsusceptible >.125 Ceftriaxone S <=0.12 F Susceptible <=0.5 , Nonsusceptible >.5 Vancomycin S <=0.50 F Susceptible <=1 , Nonsusceptible >1 Abnormal [facility] Comment on above: Performed By: #### 6 30-4 ####[facility] LABCLIA [id number] [place] [address] [place] C. trachomatis+N. gonorrhoea e DNA RC+probe Ql (Unsp spec)on 06-17-2024 C. trachomatis rRNA RC+probe Ql (Unsp spec) Not detected Normal Not detected [facility] Comment on above: Order Comment: Speci men Type: SWABOrdering Facility: [facility] Address: [address] [place] [address] Performed By: #### 3 6902-5, BVAMP ####[facility] LABCLIA [id number] [place] [address] [place] N. gonorrhoeae rRNA RC+probe Ql (Unsp spec) Not detected Normal Not detected [facility] Comment on above: Order Comment: Speci men Type: SWABOrdering Facility: [facility] Address: [address] [place] [address] Performed By: #### 3 6902-5, BVAMP ####[facility] LABCLIA [id number] [place] [address] [place] SHANNAN/TRICHOMONAS NAATon 0 06-17-2024 C. glabrata RNA RC+probe Ql (Vag fld) Not detected Normal Not detected [facility] Comment on above: Order Comment: Speci men Type: SWABOrdering Facility: [facility] Address: [address] [place] [address] Performed By: #### C VTV ####[facility] LABCLIA [id number] [place] [address] [place] Shannan sp DNA RC+probe Ql (Vag fld) Detected Abnormal Not detected [facility] Comment on above: Order Comment: Speci men Type: SWABOrdering Facility: [facility] Address: [address] [place] [address] Result Comment: The Shannan species group target includes C. albicans, C. tropicalis, C. parapsilosis, and C. dubliniensis. Performed By: #### C VTV ####[facility] LABIA [id number] [place] [address] [place] T. vaginalis DNA RC+probe Ql (Unsp spec) Not detected Normal Not detected [facility] Comment on above: Order Comment: Speci men Type: SWABOrdering Facility: [facility] Address: [address] [place] [address] Performed By: #### C VTV ####[facility] LABIA [id number] [place] [address] [place] CNOVon 06-17-2024 CNOV Office Visit (UCWSTR ) -------- MARLON GRANGER ([id number]) 1995 F Date Time Provider Department 06/17/24 3:45 PM WENDY MAYORGA WSTR During your visit today, we recorded the following information about you: Temperature Pulse Respiration Blood pressure 98.3 degrees 118/minute 21/minute 100/68 Weight 54.9 kg Joann Marie APRN.CNP 06/17/2024 4:13 PM Addendum CC: Patient presents with: Vaginal Discharge: Possible yeast infection, itching Did have treatment for yeast infection but symptoms did not clear up HPI Marlon Granger is a 29 year old [...] nondistended Vaginal discharge noted, white in color. Computer Applications Instructor present. PAST MEDICAL HISTORY Diagnosis Date NEGATIVE [...] was instructed to get set up with SPOT FACER Participation of a fellow, resident, medical student, or advanced practice provider student in performing the sensitive examination was discussed with the patient or authorized community health program representative. The patient or authorized community health program representative has agreed to proceed with the [...] Comments Date Reviewed: 06/17/2024 Reviewed by: Jennifer Crapenter MA - Fully Assessed Reason for Visit: Vaginal Discharge [4161] Cmt: Possible yeast infection, itching Primary Visit Diagnosis:Vaginal discharge [N89.8] Other Visit Diagnosis:Missed menses [N92.6] Order(s):BACTERIAL VAGINOSIS NAAT [SQBVAMP] Order #: [id number]. #:[id number] SHANNAN/TRICHOMONAS NAAT [SQCVTV] Order #: [id number]. #:[id number] GONORRHEA/CHLAMYDIA NAAT [SQGCCT] Order #: [id number]. #:[id number] UA DIP, URINE (POC) [[id number]] Order #: [id number]. #:[id number] 358-LAB BACTERIAL CULTURE, URINE [SQURCUL] Order #: [id number]. #:[id number] HCG QUAL UR B/O [[id number]] Order #: [id number] UA DIP,URINE HCG (POC) [[id number]] Order #: [id number]. #:[id number] 358-LAB BACTERIAL CULTURE, URINE [SQURCUL] Order #: [id number]. #:[id number] Problem List As Of Date: 06/17/2024 (None) Encounter Status:Closed by JOANN MARIE on 06/17/24 Normal [facility] UA DIP, URINE (POC)on 2024 BILIRUBIN UA (POCT) Negative Negative [facility] CLARITY UA (POCT) Clear [facility] COLOR UA (POCT) Yellow [facility] GLUCOSE UA (POCT) Negative Negative mg/dL [facility] Hemoglobin Ql (U) Negative Negative [facility] Interpretation and review of laboratory results Abnormal [facility] KETONE UA (POCT) Negative Negative mg/dL [facility] LEUKOCYTES UA (POCT) Trace Abnormal Negative [facility] NITRITE UA (POCT) Negative Negative [facility] PH UA (POCT) 7.5 4.5 - 8.0 [facility] Protein Ql (U) Negative Negative mg/dL [facility] SPECIFIC GRAVITY UA (POCT) 1.020 1.005 - 1.030 [facility] UROBILINOGEN UA (POCT) 0.2 Normal E.U./dL [facility] Location:[address], [address] [place] [address] POINT OF CARE [facility] UA DIP,URINE HCG (POC)on Beta HCG ( test) Ql (U) Positive Abnormal Negative [facility] Comment on above: Location:[address], [facility] Interpretation and review of laboratory results Abnormal [facility] Fence Laborer (POCT) Internal QC OK [facility] Location:[address], [address] [place] [address] POINT OF CARE [facility] BACTERIAL VAGINOSIS NAATon 1 07-08-2023 Lactobacillus crispatus+gasseri+leann senii + Gardnerella vaginalis + Atopobium vaginae rRNA RC+probe Ql (Vag fld) Not detected Normal Not detected [facility] Comment on above: Order Comment: Speci men Type: SWABOrdering Facility: [facility] Address: [address] [place] [address] Performed By: #### C VTV, BVAMP ####[facility] LABCLIA [id number] [place] [address] [place] SHANNAN/TRICHOMONAS NAATon 1 07-08-2023 C. glabrata RNA RC+probe Ql (Vag fld) Not detected Normal Not detected [facility] Comment on above: Order Comment: Speci men Type: SWABOrdering Facility: [facility] Address: [address] [place] [address] Performed By: #### C VTV, BVAMP ####[facility] LABCLIA [id number] [place] [address] [place] Shannan sp DNA RC+probe Ql (Vag fld) Detected Abnormal Not detected [facility] Comment on above: Order Comment: Speci men Type: SWABOrdering Facility: [facility] Address: [address] [place] [address] Result Comment: The Shannan species group target includes C. albicans, C. tropicalis, C. parapsilosis, and C. dubliniensis. Performed By: #### C VTV, BVAMP ####[facility] LABIA [id number] [place] [address] [place] T. vaginalis DNA RC+probe Ql (Unsp spec) Not detected Normal Not detected [facility] Comment on above: Order Comment: Speci men Type: SWABOrdering Facility: [facility] Address: [address] [place] [address] Performed By: #### C VTV, BVAMP ####[facility] LABCLIA [id number] [place] [address] [place] CNOVon 05-07-2024 CNOV Office Visit (OBGYWM ) -------- MARLON GRANGER ([id number]) 1995 F Date Time Provider Department 05/07/24 9:15 AM JAMES ZAMORA During your visit today, we recorded the following information about you: Blood pressure Weight Last Period 118/74 55.1 kg 04/07/24 James Zamora APRN.COLLEEN 05/07/2024 9:43 AM Signed 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 Marlon Granger is a 29 year old [...] L1 SAB0 IAB0 Ectopic0 Multiple0 Live Births0 Tiller Worker History LMP: 03/04/2024 (Approximate) Age at Menarche: Age at First : Age at Menopause: Tiller Worker History Comments: Sexual Activity: Yes; Male Contraception: [...] Assessed 04/03/2024 REVIEW OF SYSTEMS Expanded ROS: SPOT FACER: + vaginal itching, discharge Allergies and current medication updated:Yes SENSITIVE EXAM: The sensitive examination was discussed with the Patient or Patient's Authorized Automobile Tester. As applicable, any other physician, advance practice provider, medical student, or other health professional student that will be observing or involved in the sensitive examination for educational or training purposes was discussed with the Patient or Authorized Automobile Tester. The Patient or Authorized Automobile Tester has agreed to proceed with the sensitive examination. (Sensitive examination includes inspection and/or palpation of the breasts, pelvis, prostate and anorectal regions). EXAM: BP 118/74 Wt 121 lb 6.4 oz (55.1kg) LMP 04/07/2024 GENERAL: pleasant, female in no apparent distress HEENT: Normocephalic, atraumatic, mucus membranes moist, and no lesions CHEST: Normal inspiratory effort PELVIC: external genitalia normal, normal Bartholin's glands, urethra, [place]'s glands, no vulvar lesions, no cervical lesions, [...] Zamora APRN.COLLEEN Medical Decision Making: Problems: Low: Acute, uncomplicated illness or injury Data: Unique test(s) ordered: 3+ Risk: Low: Low risk from testing/treatment Moderate: Drug management Medical Decision Making Level: 4 - Moderate Allergies As of Date: 05/07/2024 Noted Allergy Reaction MOXIFLOXACIN 04/20/2024 5 - Intolerance Comments: Numbness PENICILLINS 06/07/2020 14 - Other: See Comments Date Reviewed: 05/07/2024 Reviewed by: James Zamora APRN.PUBLIC HEALTH EPIDEMIOLOGIST - Fully Assessed Reason for Visit: Problem Visit [Other] Primary Visit Diagnosis:Vaginal itching [N89.8] Other Visit Diagnosis:Vaginal discharge [N89.8] Order(s):SHANNAN/TRICHOM ONAS NAAT [SQCVTV] Order #: [id number]. #:[id number] BACTERIAL VAGINOSIS NAAT [SQBVAMP] Order #: [id number]. #:[id number] (more content not included)... Normal [facility] UROGENITAL UREAPLASMA AND MY COPLASMA SPECIES BY PCR, FOR GENITAL, RECTAL, URINE SAMPLESon 05-07-2024 M GENITALIUM PCR Not detected Normal [facility] Comment on above: Order Comment: Speci men Type: SWABOrdering Facility: [facility] Address: [address] [place] [address] Result Comment: INTE RPRETIVE INFORMATION: Urogenital Ureaplasma and Mycoplasma Species by PCR A negative result does not rule out the presence of PCR inhibitors in the patient specimen or test-specific nucleic acid in concentrations below the level of detection by this test. This test was developed and its performance characteristics determined by [facility]. It has not been cleared or approved by the [place] Food and Drug Administration. This test was performed in a CLIA certified laboratory and is intended for clinical purposes. Performed By: [facility] [address] [place] [address] Medical Research Associate: Srinivasa Floyd MD, PhD CLIA Number: [id number] Performed By: #### U RMPCR ####[facility] [id number] [place] [address] MYCOPLAS HOMINIS PCR Not detected Normal [facility] Comment on above: Order Comment: Speci men Type: SWABOrdering Facility: [facility] Address: [address] [place] [address] Performed By: #### U RMPCR ####[facility] [id number] [place] [address] UR PARVUM PCR Not detected Normal [facility] Comment on above: Order Comment: Speci men Type: SWABOrdering Facility: [facility] Address: [address] [place] [address] Performed By: #### U RMPCR ####[facility] [id number] [place] [address] UR UREALYTICUM PCR Not detected Normal [facility] Comment on above: Order Comment: Speci men Type: SWABOrdering Facility: [facility] Address: [address] [place] [id number] Performed By: #### U RMPCR ####[facility] [id number] [place] [address] UR/MYCO SOURCE Genital Normal [facility] Comment on above: Order Comment: Speci men Type: SWABOrdering Facility: [facility] Address: [address] [place] [address] [place] [id number] Performed By: #### U RMPCR ####[facility]IESCLIA [id number] [place] [address] [facility] SELVIN Telephone (SWETAGYWM) -------- MARLON GRANGER ([id number]) 1995 F Date Time Provider Department 04/20/24 JAMES ZAMORA During your visit today, we recorded the following information about you: Nancy Haile RN 04/20/2024 10:35 AM Signed Patient calling regarding symptoms she had since starting Moxifloxacin. She took her 2nd dose of it and then experienced what felt like numbness over entire body. [place] like she couldn't move and felt like she was in a daze. Feeling slightly better right now. 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 She doesn't know if she was so [...] orally once daily for 3 days. James Haury, LOADING SUPERVISORNancy Graham RN 04/20/2024 11:04 AM Signed Patient notified. Nancy Haile RN The following approved medication requests have [...] JAMES ZAMORA Pharmacy Information Pharmacy Address Telephone [facility] [address], [place] [id number] Allergies As of Date: 04/20/2024 Noted Allergy [...] for 3 days. Encounter Status:Closed by NANCY HAILE on 04/20/24 Normal [facility] Emergency Department Summary on 04-20-2024 Emergency Department Summary [facility] Medical Records Department [address] [place] [address] Emergency Department Summary 04/20/24 MR#: [id number] Acct: [id number] Name: MARLON GRANGER Rep #: [id number] : 1995 29 From: Storm Flannery MD PCP: Dr. Angeline Valderrama MD Status:DEP ER Location: ED HPI History of Present Illness Chief Complaint: Nausea/Vomiting Detail of Chief Complaint: allaky Informant: patient Narrative Narrative: 29-year-old female presents to have her shakiness evaluated. She states she recently was prescribed moxifloxacin to start after finishing a course of doxycycline, she took the first moxifloxacin yesterday and had no issues all day, and the second dose this morning. 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 And resulted feeling numb all over she called the nurse line for her doctor and was referred here to the ER. States she feels fine now except for being tired. She is concerned about the medication. 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 Right now she is asymptomatic. PFSH PFSH Allergy/AdvReac Type Severity Reaction Status Date / Time Penicillins Allergy Unknown Verified 04/20/24 11:49 Social History Smoking Status: Current every day smoker tobacco type: e-cigarettes ROS ROS ED Constitutional Constitutional ED: Denies chills or fever(s) Eyes Eyes: Denies change in vision or diplopia ENT ENT ED: Denies rhinorrhea or sore throat Cardiovascular Cardiovascular: Denies chest pain or palpitations Respiratory/Chest Respiratory/Chest: Denies cough or dyspnea Gastrointestinal Gastrointestinal: Denies abdominal pain, diarrhea, nausea or vomiting Genitourinary Genitourinary ED: Denies dysuria or hematuria Musculoskeletal Musculoskeletal: Denies back pain or neck pain Integumentary Denies abscess or rash Neurologic Neurologic: Denies headache(s), paresthesias or weakness Psychiatric Psychiatric: Denies anxiety or suicidal thoughts EXAM Physical Exam Const Vital Signs: 04/20/24 11:45 Temperature 97.2 F L Temperature Source Temporal Pulse Rate 138 H Respiratory Rate 18 Blood Pressure 125/86 H Blood Pressure Mean 99 Pulse Ox 100 Oxygen Delivery Method Room Air Positive well nourished and well developed General Appearance ED: well developed and NAD HEENT Reports moist mucous membranes normocephalic and atraumatic Eyes PERRL and EOMs intact bilaterally Neck full ROM and supple Resp normal respiratory effort and clear to auscultation bilaterally Cardio regular rate, regular rhythm and no murmurs GI non-tender and non-distended Auscultation: normoactive bowel sounds Palpation: soft Back/Spine no CVA tenderness General Back: other FROM Extremity normal to inspection General Extremety ED: Negative for edema, pulses abnormal or tenderness General Extremity: Negative for edema or pulses abnormal Neuro oriented x3, CN's II-XII intact bilaterally and no sensory deficits noted Sensorium / Orientation: awake and alert Motor Exam: strength 5/5 throughout Skin no rashes or lesions noted and no wounds MDM MDM MDM Narrative Medical decision making narrative: I advised the patient that I did not think this was a side effect of the medication and that if it was prescribed to her for that reason she should continue it. She has no tachycardia on my exam although she did not triage, and she thinks this was her anxiety and I tend to agree. She left prior to discharge. Discharge Plan Triage Chief Complaint: Nausea/Vomiting ED Provider: Storm Flannery Dx/Rx/DC Orders Clinical Impression: Anxiety reaction Instructions: Understanding Anxiety Disorders Primary Care Provider: Angeline Valderrama Referrals: Angeline Valderrama MD [Primary Care Provider] - Print Language: Danish Disposition Disposition: Home, Self Care Discharge Date/Time: 04/20/24 13:00 What to do if you have Problems For any increased pain, shortness of breath, bleeding, nausea or vomiting, chest pain, or any unexpected problems, contact your Primary Care Provider. Call [facility] ([phone]) or report to the clos (more content not included)... [facility] CNPN Telephone (OBGYWM) -------- MARLON GRANGER ([id number]) 1995 F Date Time Provider Department 04/08/24 JAMES ZAMORA OBMADONNAWLynnette During your visit today, we recorded the following information about you: Jailyn Trotter RN 04/08/2024 3:58 PM Signed Reviewed with patient as IDINCUhart message was not viewed. Pt voiced understanding. Jailyn Trotter RN Allergies As of Date: 04/08/2024 Noted Allergy Reaction PENICILLINS 06/07/2020 14 - Other: See Comments Date Reviewed: 04/03/2024 Reviewed by: James Zamora APRN.[facility] - Fully Assessed Reason for Visit: Results [...] Encounter Status:Closed by JAILYN TROTTER on 04/08/24 Normal [facility] BACTERIAL VAGINOSIS NAATon 1 06-03-2023 Lactobacillus crispatus+gasseri+leann senii + Gardnerella vaginalis + Atopobium vaginae rRNA RC+probe Ql (Vag fld) Not detected Normal Not detected [facility] Comment on above: Order Comment: Speci men Type: SWABOrdering Facility: [facility] Address: [address] [place] [address] Performed By: #### Jacob VAMP, [id number] ####[facility] LABCLIA [id number] [place] [address] [place] Bacteria Ur Culton Bacteria identified Cx Nom (U) ORGANISM ID: 1 10,000 -<50,000 CFU/ml Normal urogenital magdalena Normal [facility] Comment on above: Performed By: #### 6 30-4 ####[facility] LABCLIA [id number] [place] [address] [place] C. trachomatis+N. gonorrhoea e DNA RC+probe Ql (Unsp spec)on 04-03-2024 C. trachomatis rRNA RC+probe Ql (Unsp spec) Not detected Normal Not detected [facility] Comment on above: Order Comment: Speci men Type: SWABOrdering Facility: [facility] Address: [address] [place] [address] Performed By: #### Jacob VAMP, [id number] ####[facility] LABCLIA [id number] [place] [address] [place] N. gonorrhoeae rRNA RC+probe Ql (Unsp spec) Not detected Normal Not detected [facility] Comment on above: Order Comment: Speci men Type: SWABOrdering Facility: [facility] Address: [address] [place] [address] Performed By: #### B VAMP, [id number] ####[facility] LABCLIA [id number] [place] [address] [place] SHANNAN/TRICHOMONAS NAATon 1 06-03-2023 C. glabrata RNA RC+probe Ql (Vag fld) Not detected Normal Not detected [facility] Comment on above: Order Comment: Speci men Type: SWABOrdering Facility: [facility] Address: [address] [place] [address] Performed By: #### C VTV ####[facility] LABCLIA [id number] [address] [place] Shannan sp DNA RC+probe Ql (Vag fld) Not detected Normal Not detected [facility] Comment on above: Order Comment: Speci men Type: SWABOrdering Facility: [facility] Address: [address] [place] [address] Result Comment: The Shannan species group target includes C. albicans, C. tropicalis, C. parapsilosis, and C. dubliniensis. Performed By: #### C VTV ####[facility] LABCLIA [id number] [place] [address] [place] T. vaginalis DNA RC+probe Ql (Unsp spec) Not detected Normal Not detected [facility] Comment on above: Order Comment: Speci men Type: SWABOrdering Facility: [facility] Address: [address] [place] [address] Performed By: #### C VTV ####[facility] LABCLIA [id number] [place] [address] [place] CNOVon 04-03-2024 CNOV Office Visit (OBGYWM ) -------- MARLON GRANGER ([id number]) 1995 F Date Time Provider Department 04/03/24 7:45 AM JAMES ZAMORA During your visit today, we recorded the following information about you: Blood pressure Weight Last Period 110/62 54.4 kg 03/04/24 James Zamora APRN.PUBLIC HEALTH EPIDEMIOLOGIST 04/03/2024 8:16 AM Addendum Marlon Granger is a 29 year old [...] OB History No obstetric history on file. 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 As applicable, any other physician, advance practice provider, medical student, or other health professional student that will be observing or involved in the sensitive examination for educational or training purposes was discussed with the Patient or Authorized Automobile Tester. The Patient or Authorized Automobile Tester has agreed to proceed with the sensitive examination. (Sensitive examination includes inspection and/or palpation of the breasts, pelvis, prostate and anorectal regions). EXAM: BP 110/62 Wt 120 lb (54.4kg) LMP 03/04/2024 GENERAL: pleasant, female in no apparent distress HEENT: Normocephalic, atraumatic, mucus membranes moist, and no lesions CHEST: Normal inspiratory effort PELVIC: external genitalia normal, normal Bartholin's glands, urethra, [place]'s glands, no vulvar lesions, no cervical lesions, [...] annual or sooner as needed. James Zamora APRN.PUBLIC HEALTH EPIDEMIOLOGIST Medical Decision Making: Problems: Low: Stable chronic illness Data: Unique test result(s) reviewed: 3+ Unique test(s) ordered: 3+ Risk: Low: Low risk from testing/treatment Moderate: Drug management Medical Decision Making Level: 4 - Moderate James Zamora APRN.CNP 04/03/2024 7:59 AM Signed *Revaree is a [facility] recommended, leading selling vaginal insert for the relief of symptoms of vaginal atrophy and the caodaism of the vagina's epithelial lining and pH -- hormone free. In [id number]-pj-[id number] clinical trials, Revaree performed as well as estrogen creams in reducing symptoms of vaginal atrophy (dryness, itching, painful intercourse, and burning). The Revaree insert is convenient and not messy and should be used 2 to 3 times a week. Revaree is professionally recommended, easily ordered by (more content not included)... Normal [facility] UA DIP, URINE (POC)on 2023 BILIRUBIN UA (POCT) Negative Negative [facility] CLARITY UA (POCT) Clear [facility] COLOR UA (POCT) Yellow [facility] GLUCOSE UA (POCT) Negative Negative mg/dL [facility] Hemoglobin Ql (U) Negative Negative [facility] KETONE UA (POCT) Negative Negative mg/dL [facility] LEUKOCYTES UA (POCT) Negative Negative [facility] NITRITE UA (POCT) Negative Negative [facility] PH UA (POCT) 5.5 4.5 - 8.0 [facility] Protein Ql (U) Negative Negative mg/dL [facility] SPECIFIC GRAVITY UA (POCT) 1.020 1.005 - 1.030 [facility] UROBILINOGEN UA (POCT) 0.2 Normal E.U./dL [facility] Location:[facility], [address], [place], [address] [facility] POINT OF CARE [facility] UROGENITAL UREAPLASMA AND MY COPLASMA SPECIES BY PCR, FOR GENITAL, RECTAL, URINE SAMPLESon 04-03-2024 M GENITALIUM PCR Not detected Normal [facility] Comment on above: Order Comment: Speci men Type: SWABOrdering Facility: [facility] Address: [address] [place], [place] [address] [address] Result Comment: INTE RPRETIVE INFORMATION: Urogenital Ureaplasma and Mycoplasma Species by PCR A negative result does not rule out the presence of PCR inhibitors in the patient specimen or test-specific nucleic acid in concentrations below the level of detection by this test. This test was developed and its performance characteristics determined by [facility]. It has not been cleared or approved by the [place] Food and Drug Administration. This test was performed in a CLIA certified laboratory and is intended for clinical purposes. Performed By: [facility] [address] [place] [address] Medical Research Associate: Srinivasa Floyd MD, PhD CLIA Number: [id number] Performed By: #### U RMPCR ####[facility]IESCLIA [id number] [place] [address] MYCOPLAS HOMINIS PCR Not detected Normal [facility] Comment on above: Order Comment: Speci men Type: SWABOrdering Facility: [facility] Address: [address] [place] [address] Performed By: #### U RMPCR ####[facility]IESCLIA [id number] [place] [address] UR PARVUM PCR Not detected Normal [facility] Comment on above: Order Comment: Speci men Type: SWABOrdering Facility: [facility] Address: [address] [place] [address] Performed By: #### U RMPCR ####[facility]IESCLIA [id number] [place] [address] UR UREALYTICUM PCR Detected Abnormal [facility] Comment on above: Order Comment: Speci men Type: SWABOrdering Facility: [facility] Address: [address] [place] [address] Performed By: #### U RMPCR ####[facility]IESCLIA [id number] [place] [address] UR/MYCO SOURCE Genital Normal [facility] Comment on above: Order Comment: Speci men Type: SWABOrdering Facility: [facility] Address: [address] [place] [address] Performed By: #### U RMPCR ####[facility]IESCLIA [id number] [place] [address] Absolute lymphocyte countOrd ered By: Damian Major on 07-11-2023 Lymphocytes Auto (Unsp spec) [#/Vol] 1.56 10*3/uL 0.83-4.51 [facility] Automated lymphocyte count a s percentage of total leukocytesOrdered By: Damian Major on 07-11-2023 Lymphocytes/100 WBC Auto (Unsp spec) 24.1 % 19-41 [facility] Basophil percentageOrdered B y: Damian Major on 07-11-2023 Basophils/100 WBC (Bld) 0.8 % 0-1 [facility] Bilirubin [Mass/Vol] 0.60 mg/dL 0.20-1.00 [facility] Comment on above: For patients on eltr ombopag therapy, use of Dimension [place] TBIL is not recommended. Chloride [Moles/Vol] 110 mmol/L 98-107 [facility] Eosinophils/100 WBC (Bld) 0.6 % 0-5 [facility] Glucose [Mass/Vol] 94 mg/dL 74-106 [facility] Hemoglobin (Bld) [Mass/Vol] 14.2 g/dL 12.0-15.0 [facility] Monocytes/100 WBC (Bld) 7.7 % 0-10 [facility] Neutrophils (Bld) [#/Vol] 4.3 10*3/uL 2.0-7.7 [facility] Neutrophils/100 WBC (Bld) 66.6 % 47-70 [facility] Potassium [Moles/Vol] 3.3 mmol/L 3.5-5.1 [facility] Protein [Mass/Vol] 8.1 g/dL 6.4-8.2 [facility] Sodium [Moles/Vol] 141 mmol/L 136-145 [facility] WBC (Bld) [#/Vol] 6.5 10*3/uL 4.4-11.0 [facility] Determination of erythrocyte mean corpuscular volume (MCV)Ordered By: Damian Major on 07-11-2023 MCV (RBC) [Entitic vol] 85.5 fL 81-99 [facility] Erythrocyte distribution wid th ratioOrdered By: Damian Major on 07-11-2023 Erythrocyte distribution width (RBC) [Ratio] 12.5 % 11.6-14.6 [facility] Erythrocyte distribution wid th standard deviationOrdered By: Damian Major on 07-11-2023 Erythrocyte distribution width (RBC) [Entitic vol] 38.8 fL 35.1-43.9 [facility] Hematocrit Auto (Bld) [Volum e fraction]Ordered By: Damian Major on 07-11-2023 Hematocrit (Bld) [Volume fraction] 42.4 % 37-47 [facility] Immature granulocytes/100 WB C Auto (Bld)Ordered By: Damian Major on 07-11-2023 Immature granulocytes/100 WBC (Bld) 0.200 % 0.0-0.9 [facility] Comment on above: IG% - Immature Granu locytes (promyelocytes, myelocytes and metamyelocytes) > 1% indicates that a LEFT SHIFT is Present. Laboratory - Chemistry and C hemistry - challengeOrdered By: Damian Major on 07-11-2023 Albumin/Globulin [Mass ratio] 1.3 {ratio} 0.9-2.4 [facility] ALP [Catalytic activity/Vol] 44 U/L 45-117 [facility] ALT [Catalytic activity/Vol] 21 U/L 13-56 [facility] CO2 [Moles/Vol] 25.0 mmol/L 21.0-32.0 [facility] Globulin (S) [Mass/Vol] 3.5 g/dL 2.2-4.2 [facility] Urea nitrogen/Creatinine [Mass ratio] 8.0 mg/mg 10-20 [facility] Laboratory - Hematology and Cell countsOrdered By: Damian Major on 07-11-2023 MCH (RBC) [Entitic mass] 28.6 pg 27.0-32.0 [facility] MCHC (RBC) [Mass/Vol] 33.5 g/dL 32-36 [facility] Nucleated RBC/100 WBC (Bld) [Ratio] 0 % 0-5 [facility] Platelet mean volume (Bld) [Entitic vol] 11.3 fL 6.2-12.0 [facility] Platelets (Bld) [#/Vol] 243 10*3/uL 150-450 [facility] No Panel InformationOrdered By: Damian Major on 07-11-2023 Estimated GFR (MDRD) Amer 99 mL/min >60 [facility] Comment on above: GFR Calc Estimated GFR (MDRD) Non-Af Amer 82 mL/min >60 [facility] Comment on above: Non- GFR Calc Follicle Stimulating Hormone 4.3 mIU/mL [facility] Comment on above: NORMAL REFERENCE RAN GES FEMALE FOLLICULAR 2.3 - 12.6 mIU/mL MID-CYCLE PEAK 5.2 - 17.5 mIU/mL LUTEAL 1.7 - 12.9 mIU/mL POST-MENOPAUSAL ON MHT 5.9 - 72.8 mIU/mL NOT ON MHT 12.7 - 132.2 mlU/mL MALE 0.7 - 10.8 mIU/mL Luteinizing Hormone 19.4 mIU/mL [facility] Comment on above: NORMAL REFERENCE RAN GES FEMALE FOLLICULAR 1.9 - 26.2 mIU/mL MID-CYCLE PEAK 22.8 - 76.1 mIU/mL LUTEAL 0.6 - 16.6 mIU/mL POST-MENOPAUSAL ON MHT 1.1 - 52.4 mIU/mL NOT ON MHT 8.6 - 61.8 mIU/mL MALE 1.2 - 10.6 mIU/mL RBC Auto (Bld) [#/Vol]Ordere d By: Damian Major on 07-11-2023 RBC (Bld) [#/Vol] 4.96 10*6/uL 4.2-5.4 [facility] Serum or plasma calcium keven urement (mass/volume)Ordered By: Damian Major on 07-11-2023 Calcium [Mass/Vol] 9.2 mg/dL 8.5-10.1 [facility] Serum or plasma creatinine m easurement (mass/volume)Ordered By: Damian Major on 07-11-2023 Creatinine [Mass/Vol] 0.87 mg/dL 0.55-1.02 [facility] Comment on above: The validity of the calculated GFR & GFRAA in patients over 70 years has not been determined. Clinical correlation is essential. Serum or plasma thyroid stim ulating hormone (TSH) measurement (units/volume)Ordered By: Damian Major on 07-11-2023 TSH Qn 0.72 uIU/mL 0.358-3.74 [facility] Serum or plasma urea nitroge n measurement (mass/volume)Ordered By: Damian Major on 07-11-2023 Urea nitrogen [Mass/Vol] 7 mg/dL 7-18 [facility] Thin prep Papanicolaou smear with manual screeningOrdered By: Damian Major on 07-11-2023 Thin prep Papanicolaou smear with manual screening 4.6 g/dL 3.2-5.0 [facility] Thin prep Papanicolaou smear with manual screening 20 U/L 15-37 [facility] Thin prep Papanicolaou smear with manual screening 6 5-15 [facility] BACTERIAL VAGINOSIS NAATon 1 Lactobacillus crispatus+gasseri+leann senii + Gardnerella vaginalis + Atopobium vaginae rRNA RC+probe Ql (Vag fld) Negative Negative for bacterial vaginosis [facility] SHANNAN/TRICHOMONAS NAATon 1 C. glabrata RNA RC+probe Ql (Vag fld) Negative Negative for Shannan glabrata [facility] Shannan sp DNA RC+probe Ql (Vag fld) Positive Abnormal Negative for Shannan species [facility] T. vaginalis DNA RC+probe Ql (Unsp spec) Negative Negative for Trichomonas vaginalis by amplification [facility] Gram stain for investigation of transfusion reactionOrdered By: Ethan Valderrama on 12-26-2022 Microscopic observation Gram stain Nom (Unsp spec) [facility] Neisseria gonorrhoeae genita l PCROrdered By: Ethan Valderrama on 12-26-2022 N. gonorrhoeae DNA RC+probe Ql (Genital specimen) [facility] No Panel InformationOrdered By: Ethan Valderrama on 12-26-2022 Trichomonas vaginalis (PCR) Negative Negative [facility] Chlamydia trachomatis (PCR) [facility] Thin prep Papanicolaou smear with manual screeningOrdered By: Ethan Valderrama on 12-26-2022 Genital Culture Streptococcus group B [facility] BACTERIAL VAGINOSIS NAATon 0 11-20-2022 Lactobacillus crispatus+gasseri+leann senii + Gardnerella vaginalis + Atopobium vaginae rRNA RC+probe Ql (Vag fld) Negative Negative for bacterial vaginosis [facility] C. trachomatis+N. gonorrhoea e DNA RC+probe Ql (Unsp spec)on 11-20-2022 C. trachomatis rRNA RC+probe Ql (Unsp spec) Negative Negative for Chlamydia trachomatis by amplificaton [facility] N. gonorrhoeae rRNA RC+probe Ql (Unsp spec) Negative Negative for Neisseria gonorrhoeae by amplification [facility] SHANNAN/TRICHOMONAS NAATon 0 11-20-2022 C. glabrata RNA RC+probe Ql (Vag fld) Negative Negative for Shannan glabrata [facility] Shannan sp DNA RC+probe Ql (Vag fld) Negative Negative for Shannan species [facility] T. vaginalis DNA RC+probe Ql (Unsp spec) Negative Negative for Trichomonas vaginalis by amplification [facility] Cervical or vagninal specime n microscopic examination by cytology stain (reported asOrdered By: Cynthia Mayers on 09-13-2022 Cytology report Cyto stain Doc (Cvx/Vag) Comment . [facility] Comment on above: The Pap smear is a s creening test designed to aid in thedetection of premalignant and malignant conditions of theuterine cervix. It is not a diagnostic procedure andshould not be used as the sole means of detecting cervicalcancer. Both false-positive and false-negative reports dooccur. Cervical specimen human minda lloma virus (HPV) type 16 DNA detection by probe with sigOrdered By: Cynthia Mayers on 09-13-2022 HPV 16 DNA Probe+sig amp Ql (Cvx) Negative Negative [facility] Detection in cervical specim en of any of human papilloma virus (HPV) 16, 18, 31, 33,Ordered By: Cynthia Mayers on 09-13-2022 HPV 16+18+31+33+35+39+45+ 51+52+56+58+59+66+68 DNA Probe+sig amp Ql (Cvx) Positive Negative [facility] Comment on above: This nucleic acid am plification test detects fourteen high- risk HPV types (16,18,31,33,35,39,45,51,52,56,58,59,66,68)without differentiation. Laboratory - CytologyOrdered By: Cynthia Mayers on 09-13-2022 Tub Rider Cyto stain Nom (Cvx/Vag) [ID] Comment . [facility] Comment on above: Deb Cat, Cytote chnologist (ASCP) Laboratory - Miscellaneous t estsOrdered By: Cynthia Mayers on 09-13-2022 Service comment (Unsp spec) [Interp] Comment . [facility] Comment on above: This liquid based Th inPrep(R) pap test was screened withthe use of an image guided system. Service comment (Unsp spec) [Interp] . . [facility] Liquid-based cerv Pap + CT/G C by RC w reflex to high-risk HPV for ASCUSOrdered By: Cynthia Mayers on 09-13-2022 Cytology report Cyto stain.thin prep Doc (Cvx/Vag) Comment . [facility] Comment on above: Criteria met, see HP V Genotype results. No Panel InformationOrdered By: Cynthia Mayers on 09-13-2022 HPV Type 18 Comment Negative Negative [facility] Comment on above: Performed at: WB - [facility] [address] [id number] Director: Sultana Church MD, Phone: [phone] at: =G - [facility] [address] [id number] Director: Sultana Church MD, Phone: [phone] Pathology report final diagnosis Narrative Comment . [facility] Comment on above: NEGATIVE FOR INTRAEP ITHELIAL LESION OR MALIGNANCY. HCG QUAL UR B/Oon 08-24-2022 status Negative neg - pos [facility] Quality Check Yes [facility] No Panel Informationon 05-09 Miscellaneous Test See comment [facility] Work Phone: Comment on above: TEST RESULT LIMITSNu Swab Vaginitis Plus (VG+)Bacterial Vaginosis, NAAAtopobium vaginae High-2 Abnormal ScoreBVAB 2 High-2 Abnormal ScoreMegasphaera 1 High-2 Abnormal ScoreTotal Score, add three scores Calculate total score by adding the 3 individual bacterialvaginosis (BV) marker scores together. Total score isinterpreted as follows:Total score 0-1: Indicates the absence of BV.Total score 2: Indeterminate for BV. Additional clinical data should be evaluated to establish a diagnosis.Total score 3-6: Indicates the presence of BV.This test was developed and its performance characteristicsdetermined by [facility]. It has not been cleared or approvedby the Food and Drug Administration.Shannan albicans, RC A, Negative NegativeCandida glabrata, RC A, Negative NegativeTrich vag by RC Negative NegativeChlamydia trachomatis, RC Negative NegativeNeisseria gonorrhoeae, RC Negative Negative _ TESTING PERFORMED AT [facility]. ORIGINAL REPORT ON FILE IN LAB CONTAINS ADDITIONAL TEST SITE INFORMATION. HIV 1 and HIV-2 antibody ass ay with HIV-1 p24 antigen detectionon 03-22-2022 HIV 1+2 Ab+HIV1 p24 Ag IA Ql Non-Reactive Nonreactive [facility] Work Phone: No Panel Informationon 03-22 Hepatitis A Antibody Total Negative Negative [facility] Work Phone: Comment on above: Performed at: [address] [id number] Director: Melecio Coles PhD, Phone: [phone] Hepatitis A IgM Antibody Negative Negative [facility] Work Phone: Hepatitis B Core IgM Antibody Negative Negative [facility] Work Phone: Hepatitis C Antibody (EIA) <0.1 s/co ratio 0.0-0.9 [facility] Work Phone: Hepatitis C Antibody Comment Comment . [facility] Work Phone: Comment on above: NegativeNot infected with HCV, unless recent infection issuspected or other evidence exists to indicate HCVinfection. Miscellaneous Test See comment [facility] Work Phone: Comment on above: TEST RESULT LIMITSNu Swab Vaginitis Plus (VG+)Bacterial Vaginosis, NAAAtopobium vaginae High - 2 Abnormal ScoreBVAB 2 Low - 0 ScoreMegasphaera 1 High - 2 Abnormal ScoreTotal Score, add three scores Calculate total score by adding the 3 individual bacterialvaginosis (BV) marker scores together. Total score isinterpreted as follows:Total score 0-1: Indicates the absence of BV.Total score 2: Indeterminate for BV. Additional clinical data should be evaluated to establish a diagnosis.Total score 3-6: Indicates the presence of BV.This test was developed and its performance characteristicsdetermined by [facility]. It has not been cleared or approvedby the Food and Drug Administration.Shannan albicans, RC A, Negative NegativeCandida glabrata, RC A, Negative NegativeTrich vag by RC Negative NegativeChlamydia trachomatis, RC Negative NegativeNeisseria gonorrhoeae, RC Negative NegativeA: This test was developed and its performance characteristics determined by [facility]. It has not been cleared or approved by the Food and DrugAdministration. TESTING PERFORMED AT [facility]. ORIGINAL REPORT ON FILE IN LAB CONTAINS ADDITIONAL TEST SITE INFORMATION. Serum Treponema species anti body detectionon 03-22-2022 Treponema sp Ab Ql (S) Non-Reactive [facility] Work Phone: Serum hepatitis B virus surf emely antibody IgG detectionon 03-22-2022 HBV surface IgG Ql (S) Non-Reactive [facility] Work Phone: Comment on above: Non Reactive: Incons istent with immunity less than <10 mIU/mL Reactive: Consistent with immunity greater than or equal to 10 mIU/mL Serum or plasma hepatitis B virus surface antigen detection by immunoassayon 03-22-2022 HBV surface Ag IA Ql Negative Negative [facility] Work Phone: No Panel Informationon 02-01 Miscellaneous Test See comment [facility] Work Phone: Comment on above: TEST RESULT LIMITSPa p IG, CT-NG TVInterpretation:NEGATIVE FOR INTRAEPITHELIAL LESION AND MALIGNANCY.Specimen Adequacy:Satisfactory for evaluation. No endocervical component is identified.Comments:The pap smear is a screening test designated to aid in thedetection of pre-malignant and malignant conditions of theuterine cervix. It is not a diagnostic procedure and shouldnot be used as the sole means of detecting cervical cancer. Both false-positive and false-negative reports do occur.This liquid based ThinPrep(R) pap test was screened with the use of an image guided system.Performed by [employer] (ASCP)Chlamydia, Nuc. Acid Amp NegativeGonococcus, Nuc. Acid Amp NegativeTrich vag by RC Negative _ TESTING PERFORMED AT [facility]. ORIGINAL REPORT ON FILE IN LAB CONTAINS ADDITIONAL TEST SITE INFORMATION. No Panel Informationon 10-31 Miscellaneous Test See comment [facility] Work Phone: Comment on above: TEST RESULT LIMITSNu Swab Vaginitis Plus (VG+)Bacterial Vaginosis, NAAAtopobium vaginae High - 2 Abnormal ScoreBVAB 2 High - 2 Abnormal ScoreMegasphaera 1 High - 2 Abnormal ScoreTotal Score, add three scores Calculate total score by adding the 3 individual bacterialvaginosis (BV) marker scores together. Total score isinterpreted as follows:Total score 0-1: Indicates the absence of BV.Total score 2: Indeterminate for BV. Additional clinical data should be evaluated to establish a diagnosis.Total score 3-6: Indicates the presence of BV.This test was developed and its performance characteristicsdetermined by [facility]. It has not been cleared or approvedby the Food and Drug Administration.Shannan albicans, RC A, Negative NegativeCandida glabrata, RC A, Negative NegativeTrich vag by RC Negative NegativeChlamydia trachomatis, RC Negative NegativeNeisseria gonorrhoeae, RC Negative NegativeCommentsA: This test was developed and its performance characteristics determined by [facility]. It has not been cleared or approved by the Food and DrugAdministration. TESTING PERFORMED AT [facility]. ORIGINAL REPORT ON FILE IN LAB CONTAINS ADDITIONAL TEST SITE INFORMATION. Basophil percentageon 2021 C. trachomatis DNA RC+probe Ql (Unsp spec) Negative Negative [facility] Work Phone: Culture, urineon 08-31-2021 Bacteria identified Cx Nom (U) Culture exhibits no growth. [facility] Work Phone: Neisseria gonorrhoeae detect ion by PCRon 08-31-2021 N. gonorrhoeae DNA RC+probe Ql (Cervical mucus) Negative Negative [facility] Work Phone: Cervical or vagninal specime n microscopic examination by cytology stain (reported ason 08-02-2021 Cytology report Cyto stain Doc (Cvx/Vag) Comment [facility] Work Phone: Comment on above: The Pap smear is a s creening test designed to aid in thedetection of premalignant and malignant conditions of theuterine cervix. It is not a diagnostic procedure andshould not be used as the sole means of detecting cervicalcancer. Both false-positive and false-negative reports dooccur. Chlamydia trachomatis rRNA d etection by probe and target amplification methodon 08-02-2021 C. trachomatis rRNA RC+probe Ql (Unsp spec) Negative Negative [facility] Work Phone: Detection in cervical specim en of any of human papilloma virus (HPV) 16, 18, 31, 33,on 08-02-2021 HPV 16+18+31+33+35+39+45+ 51+52+56+58+59+66+68 DNA Probe+sig amp Ql (Cvx) Positive Negative [facility] Work Phone: Comment on above: This nucleic acid am plification test detects fourteen high- risk HPV types (16,18,31,33,35,39,45,51,52,56,58,59,66,68)without differentiation.Performed at: - [facility] [id number] Director: Sultana Church MD, Phone: [phone] at: = - [facility] [id number] Director: Sultana Church MD, Phone: [phone] Laboratory - Cytologyon 07-12 Tub Rider Cyto stain Nom (Cvx/Vag) [ID] Comment [facility] Work Phone: Comment on above: Deb Cat, Cytote chnologist (ASCP) Laboratory - Microbiology an d Antimicrobial susceptibilityon 08-02-2021 N. gonorrhoeae DNA RC+probe Ql (Unsp spec) Negative Negative [facility] Work Phone: Comment on above: Performed at: =G - [facility] [address], [place] [id number] Director: Sultana Church MD, Phone: [phone] Laboratory - Miscellaneous t estson 08-02-2021 Service comment (Unsp spec) [Interp] Comment [facility] Work Phone: Comment on above: This liquid based Th inPrep(R) pap test was screened withthe use of an image guided system. Service comment (Unsp spec) [Interp] . [facility] Work Phone: No Panel Informationon 08-02 Pathology report final diagnosis Narrative Comment [facility] Work Phone: Comment on above: NEGATIVE FOR INTRAEP ITHELIAL LESION OR MALIGNANCY.PREDOMINANCE OF COCCOBACILLI CONSISTENT WITH SHIFT IN VAGINAL MAGDALENA ISPRESENT. Basophil percentageon 2021 WBC (Bld) [#/Vol] 6.6 10*3/uL 4.4-11.0 [facility] Work Phone: Blood erythrocytes count (nu mber/volume)on 06-21-2021 RBC (Bld) [#/Vol] 4.90 10*6/uL 4.2-5.4 [facility] Work Phone: Blood hemoglobin measurement (mass/volume)on 06-21-2021 Hemoglobin (Bld) [Mass/Vol] 14.9 g/dL 12.0-15.0 [facility] Work Phone: Blood platelet mean volumeon 06-21-2021 Platelet mean volume (Bld) [Entitic vol] 10.6 fL 6.2-12.0 [facility] Work Phone: Determination of erythrocyte mean corpuscular volume (MCV)on 06-21-2021 MCV (RBC) [Entitic vol] 85.1 fL 81-99 [facility] Work Phone: Hematocrit Auto (Bld) [Volum e fraction]on 06-21-2021 Hematocrit (Bld) [Volume fraction] 41.7 % 37-47 [facility] Work Phone: Laboratory - Hematology and Cell countson 06-21-2021 Erythrocyte distribution width (RBC) [Entitic vol] 37.2 fL 35.1-43.9 [facility] Work Phone: Erythrocyte distribution width (RBC) [Ratio] 11.9 % 11.6-14.6 [facility] Work Phone: MCH (RBC) [Entitic mass] 30.4 pg 27.0-32.0 [facility] Work Phone: MCHC Auto (RBC) [Mass/Vol]on 06-21-2021 MCHC (RBC) [Mass/Vol] 35.7 g/dL 32-36 [facility] Work Phone: No Panel Informationon 06-21 Thyroid Stimulating Hormone (TSH) 1.10 uIU/mL 0.358-3.74 [facility] Work Phone: Miscellaneous Test See comment [facility]: Comment on above: NuSwab VG+, Shannan 6sp TEST RESULT UNITS REF INTERVALBacterial Vaginosis, NAAAtopobium vaginae Low - 0 ScoreBVAB 2 Low - 0 ScoreMegasphaera 1 Low - 0 ScoreTotal Score, add three scores Calculate total score by adding the 3 individual bacterial vaginosis (BV) marker scores together. Total score is interpreted as follows: Total score 0-1: Indicates the absence of BV. Total score 2: Indeterminate for BV. Additional clinical data should be evaluated to establish a diagnosis.Total score 3-6: Indicates the presence of BV.This test was developed and its performance characteristicsdetermined by [employer]. It has not been cleared or approvedby the Food and Drug Administration.Shannan albicans, RC A, Negative NegativeCandida glabrata, RC A, Negative NegativeTrich vag by RC Negative NegativeChlamydia trachomatis, RC Negative NegativeNeisseria gonorrhoeae, RC Negative Negative _ TESTING PERFORMED AT [facility]. ORIGINAL REPORT ON FILE IN LAB CONTAINS ADDITIONAL TEST SITE INFORMATION. Platelets bldon 06-21-2021 Platelets (Bld) [#/Vol] 253 10*3/uL 150-450 [facility] Work Phone: CTPCRon 11-02-2018 C. trachomatis Interp See CT Interp N [facility] ([place]) Comment on above: Result Comment: DNA detection by non-culture technique (PCR). Sensitivity testing not available with this method. This organism causes a reportable disease [facility] Interp P Performed By: #### U NATALIE Mccormack PREGU #### [address] [address] C.trachomatis PCR Positive Negative [facility] ([place]) Comment on above: Result Comment: Glass sport tube received with two swabs. Review collection procedure. Inappropriate collection may cause aberrant results. Transport tube received with two swabs. Review collection procedure. Inappropriate collection may cause aberrant results. Molecular (PCR) assay performed on the [employer] 4800 system. Performed By: #### NATALIE Junior PREGU #### [address] [address] Chlam Source Vaginal Normal [facility] ([place]) Comment on above: Performed By: #### NATALIE Junior, PREGU #### [address] [address] NGPCRon 11-02-2018 GC PCR Source Vaginal Normal [facility] ([place]) Comment on above: Performed By: #### NATALIE Junior, PREGU #### [address] [address] N. gonorrhoeae (PCR) Positive Negative [facility] ([place]) Comment on above: Result Comment: Glass sport tube received with two swabs. Review collection procedure. Inappropriate collection may cause aberrant results. Transport tube received with two swabs. Review collection procedure. Inappropriate collection may cause aberrant results. Molecular (PCR) assay performed on the [employer] 4800 System. Performed By: #### U NATALIE Mccormack, PREGU #### [address] [address] N. gonorrhoeae Interp See NG Interp N [facility] ([place]) Comment on above: Result Comment: DNA detection by non-culture technique (PCR). Sensitivity testing not available with this method. This organism causes a reportable disease Results have been reported to the [place] [facility] See NG Interp P Performed By: #### U NATALIE Mccormack PREGU #### [address] [address] .Auto Diffon 09-24-2018 Ammonia mass conc (P) 0.50 10 3/mcL Normal 0.15-1.00 [facility] ([place]) Comment on above: Performed By: #### MARYANA JOHNSTON, TORO #### [facility] [address] [address] Basophils #/vol (Bld) 0.10 10 3/mcL Normal 0.00-0.19 [facility] ([place]) Comment on above: Performed By: #### MARYANA JOHNSTON, ANEU #### [facility] [address] [address] Basophils/100 WBC (Bld) 0.7 % Normal 0.0-2.5 [facility] ([place]) Comment on above: Performed By: #### MARYANA JOHNSTON, ANEU #### [address] [address] Eosinophils #/vol (Bld) 0.10 10 3/mcL Normal 0.00-0.40 [facility] ([place]) Comment on above: Performed By: #### MARYANA JOHNSTON, ANEU #### [address] [address] Eosinophils/100 WBC (Bld) 1.9 % Normal 0.0-7.0 [facility] ([place]) Comment on above: Performed By: #### MARYANA JOHNSTON, ANEU #### [address] [address] Lymphocytes #/vol (Bld) 2.10 10 3/mcL Normal 0.77-3.85 [facility] ([place]) Comment on above: Performed By: #### MARYANA JOHNSTON, ANEU #### [address] [address] Lymphocytes/100 WBC (Bld) 28.1 % Normal 10.0-50.0 [facility] ([place]) Comment on above: Performed By: #### C MARYANA JUSTIN, ANEU #### [facility] [address] [address] Monocytes/100 WBC (Bld) 7.0 % Normal 1.7-13.0 [facility] ([place]) Comment on above: Performed By: #### C MARYANA JUSTIN, ANEU #### [facility] [address] [address] Neutrophils/100 WBC (Bld) 62.3 % Normal 37.0-80.0 [facility] ([place] Comment on above: Performed By: #### C MARYANA JUSTIN, ANEU #### [facility] [address] [address] .NEUABSon 09-24-2018 Neutrophils #/vol (Bld) 4.60 10 3/mcL Normal 2.85-6.16 [facility] ([place]) Comment on above: Performed By: #### C MARYANA JUSTIN, ANEU #### [facility] [address] [address] CBCon 09-24-2018 Erythrocyte distribution width Ratio (RBC) 16.8 % High 11.5-14.5 [facility] ([place]) Comment on above: Performed By: #### C MARYANA JUSTIN, ANEU #### [address] [address] Hematocrit Volume Fraction (Bld) 36.8 % Low 37.0-47.0 [facility] ([place] Comment on above: Performed By: #### C MARYANA JUSTIN, ANEU #### [facility] [address] [address] Hemoglobin mass conc (Bld) 12.0 G/dL Normal 12.0-16.0 [facility] ([place] Comment on above: Performed By: #### C MARYANA JUSTIN, ANEU #### [facility] [address] [address] MCH Entitic mass (RBC) 25.9 pg Low 27.0-31.2 [facility] ([place] Comment on above: Performed By: #### C MARYANA JUSTIN, ANEU #### [facility] [address] [address] MCHC mass conc (RBC) 32.5 G/dL Low 33.0-37.0 [facility] ([place]) Comment on above: Performed By: #### C MARYANA JUSTIN, ANEU #### [address] [address] MCV Entitic volume (RBC) 79.7 fL Low 80.0-94.0 [facility] ([place]) Comment on above: Performed By: #### C MARYANA JUSTIN, ANEU #### [place] [id number] Platelet mean volume Entitic volume (Bld) 8.5 fL Normal 7.4-10.4 [facility] ([place]) Comment on above: Performed By: #### MARYANA JOHNSTON, ANEU #### [place] [id number] Platelets #/vol (Bld) 210 10 3/mcL Normal 130-400 [facility] ([place]) Comment on above: Performed By: #### C MARYANA JUSTIN, ANEU #### [address] [address] RBC #/vol (Bld) 4.62 10 6/mcL Normal 4.20-5.40 [facility] ([place]) Comment on above: Performed By: #### MARYANA JOHNSTON, ANEU #### [address] [address] WBC #/vol (Bld) 7.40 10 3/mcL Normal 4.60-10.80 [facility] ([place]) Comment on above: Performed By: #### MARYANA JOHNSTON, ANEU #### [address] [address] PREGUon 09-24-2018 HCG ( test) Ql (U) Negative Normal [facility] ([place]) Comment on above: Performed By: #### P REGU #### [address] [address] test (u) int HCG not detected. [facility] ([place]) Comment on above: Performed By: #### P REGU #### [place] [address] BSAon 08-13-2018 BSA . MICRO - Microbiology PROCEDURE: Beta Strep Antigen with Cult if Ind [O1 *1] SOURCE: Throat BODY SITE: COLLECTED DATE/TIME: 08/13/2018 20:59 EDT RECEIVED DATE/TIME: 08/13/2018 21:00 EDT START DATE/TIME: 08/13/2018 21:00 EDT FREE TEXT SOURCE: FINAL REPORTS Final Report [] Verified Date/Time/Personnel: 08/13/2018 21:17 EDT Antigen Screen: Negative for Group A Strep. Culture confirmation to follow. COMMENT: Recommendations suggest that all negative results be confirmed with culture. Order Comments O1: Beta Strep Antigen with Cult if Ind (Rapid Strep with Cult if Ind) no culture Performing Locations *1: This test was performed at: [address] ([place]) Comment on above: Performed By: #### B SA #### [place] [address] CTPCRon 03-20-2018 C. trachomatis Interp Normal See CT Interp N [facility] ([place]) Comment on above: Result Comment: C. t rachomatis DNA not detected. Specimen is presumptive negative for C. trachomatis. A negative result does not preclude C. trachomatis infection because results depend on adequate specimen collection, absence of inhibitors, and sufficient DNA to be detected. See CT Interp N Performed By: #### C TPCR, NGPCR1 #### [place] [address] C.trachomatis PCR Negative Normal Negative [facility] ([place]) Comment on above: Result Comment: Mole cular (PCR) assay performed on the [employer] 4800 system. Performed By: #### C TPCR, NGPCR1 #### [place] [address] [place]lam Source Genital Female Normal [facility] ([place]) Comment on above: Performed By: #### C TPCR, NGPCR1 #### [facility] [address] [place] [address] NGPCRon 03-20-2018 GC PCR Source Genital Female Normal [facility] ([place]) Comment on above: Performed By: #### C TPCR, NGPCR1 #### [facility] [address] [place] [address] N. gonorrhoeae (PCR) Negative Normal Negative [facility] ([place]) Comment on above: Result Comment: Mole cular (PCR) assay performed on the [employer] 4800 System. Performed By: #### C TPCR, NGPCR1 #### [address] [address] N. gonorrhoeae Interp Normal See NG Interp N [facility] ([place]) Comment on above: Result Comment: N. g onorrhoeae DNA not detected. Specimen is presumptive negative for N. gonorrhoeae. A negative result does not preclude Neisseria gonorrhoeae infection because results depend on adequate specimen collection, absence of inhibitors, and sufficient DNA to be detected. See NG Interp N Performed By: #### C TPCR, NGPCR1 #### [address] [address] .Urinalysis Microscopic (AO) on 03-18-2018 RBC #/vol (U) LOADED None Seen [facility] ([place]) Comment on above: Performed By: #### U A, UAMICAO, PREGU #### [address] [address] UA Squam Epithelial 0-5 None Seen [facility] ([place]) Comment on above: Performed By: #### U A, UAMICAO, PREGU #### [address] [address] UA WBC None Seen Normal None Seen [facility] ([place]) Comment on above: Performed By: #### U A, UAMICAO, PREGU #### [address] [address] PREGUon 03-18-2018 HCG ( test) Ql (U) Negative Normal [facility] ([place]) Comment on above: Performed By: #### U A, UAMICAO, PREGU #### [place] [address] test (u) int HCG not detected. [facility] ([place]) Comment on above: Performed By: #### U A, UAMICAO, PREGU #### [place] [address] UAon 03-18-2018 Color Nom (U) Yellow Normal [facility] ([place]) Comment on above: Performed By: #### U A, UAMICAO, PREGU #### [place] [address] Glucose mass conc (U) Negative Normal Negative [facility] ([place]) Comment on above: Performed By: #### U A, UAMICAO, PREGU #### [place] [address] Ketones Ql (U) Negative Normal Negative [facility] ([place]) Comment on above: Performed By: #### U A, UAMICAO, PREGU #### [place] [address] UA Appear Cloudy Clear [facility] [place] Comment on above: Performed By: #### U A, UAMICAO, PREGU #### [place] [address] UA Blood Large Negative [facility] [place] Comment on above: Performed By: #### U A, UAMICAO, PREGU #### [place] [address] UA Leuk Est Negative Normal [facility] [place] Comment on above: Performed By: #### U A, UAMICAO, PREGU #### [place] [address] UA Nitrite Negative Normal Negative [facility] [place] Comment on above: Performed By: #### U A, UAMICAO, PREGU #### [place] [address] UA pH 6.0 Normal [facility] [place] Comment on above: Performed By: #### U A, UAMICAO, PREGU #### [place] [address] UA Protein Negative Normal [facility] [place] Comment on above: Performed By: #### U A, UAMICAO, PREGU #### [place] [address] UA Spec Grav 1.025 Normal [facility] [place] Comment on above: Performed By: #### U A, UAMICAO, PREGU #### [place] [address] UA Specimen Type Clean Catch [facility] ([place]) Comment on above: Performed By: #### U A, UAMICAO, PREGU #### [place] [address] UA Urobilinogen 0.2 E.U./dL [facility] ([place]) Comment on above: Performed By: #### U A, UAMICAO, PREGU #### [place] [address] Urobilinogen Qn (U) Negative Normal Negative [facility] ([place]) Comment on above: Performed By: #### U A, UAMICAO, PREGU #### [place] [address] Culture, urine Bacteria identified Cx Nom (U) Positive [facility] Work Phone: Gram stain for investigation of transfusion reaction Microscopic observation Gram stain Nom (Unsp spec) [facility] Work Phone: Thin prep Papanicolaou smear with manual screening Genital Culture G. vaginalis (Presumptive) [facility] Work Phone: Vital Signs Date Time Vital Sign Value Performing Clinician Faci lity 02-10-2025 08:05-0400 Body temperature 97.3 [degF] Dr. Angeline Valderrama MD Work Phone: 9(175)[phone] [place] [address] 02-10-2025 08:05-0400 Diastolic blood pressure 91 mm[Hg] Dr. Angeline Valderrama MD Work Phone: 4(607)096-253688 [place] [address] 02-10-2025 08:05-0400 Heart rate 76 /min Dr. Angeline Valderrama MD Work Phone: 7(756)439-516788 [place] [address] 02-10-2025 08:05-0400 Respiratory rate 16 /min Dr. Angeline Valderrama MD Work Phone: 7(328)958-864988 [place] [address] 02-10-2025 08:05-0400 SaO2% (BldA) [Mass fraction] 97 % Dr. Angeline Valderrama MD Work Phone: 9(369)233-354088 [place] [address] 02-10-2025 08:05-0400 Systolic blood pressure 122 mm[Hg] Dr. Angeline Valderrama MD Work Phone: 5(262)083-812088 [place] [address] 02-09-2025 14:35-0400 Body temperature 97.2 [degF] Dr. Angeline Valderrama MD Work Phone: 5(793)351-740288 [place] [address] 02-09-2025 14:35-0400 Diastolic blood pressure 100 mm[Hg] Dr. Angeline Valderrama MD Work Phone: 5(028)303-831188 [place] [address] 02-09-2025 14:35-0400 Heart rate 81 /min Dr. Angeline Valderrama MD Work Phone: 8(985)[phone] [place] [address] 02-09-2025 14:35-0400 Respiratory rate 14 /min Dr. Angeline Valderrama MD Work Phone: 7(619)532-727688 [place] [address] 02-09-2025 14:35-0400 SaO2% (BldA) [Mass fraction] 97 % Dr. Angeline Valderrama MD Work Phone: 6(365)227-721488 [place] [address] 02-09-2025 14:35-0400 Systolic blood pressure 144 mm[Hg] Dr. Angeline Valderrama MD Work Phone: 8(735)057-137288 [place] [address] 02-07-2025 12:21-0400 Body height 162.[address] Angeline Valderrama MD Work Phone: [facility] 02-07-2025 12:21-0400 Body mass index (BMI) [Ratio] 27.4 kg/m2 Dr. Angeline Valderrama MD Work Phone: [facility] 02-07-2025 12:21-0400 Body weight 72.[address] Angeline Valderrama MD Work Phone: [facility] 01-31-2025 07:18-0400 Diastolic blood pressure 82 mm[Hg] Dr. Angeline Valderrama MD Work Phone: [facility] 01-31-2025 07:18-0400 Heart rate 77 /min Dr. Angeline Valderrama MD Work Phone: [facility] 01-31-2025 07:18-0400 Systolic blood pressure 124 mm[Hg] Dr. Angeline Valderrama MD Work Phone: [facility] 01-31-2025 07:17-0400 Body temperature 98.7 [degF] Dr. Angeline Valderrama MD Work Phone: [facility] 01-31-2025 07:17-0400 Respiratory rate 16 /min Dr. Angeline Valderrama MD Work Phone: [facility] 01-31-2025 07:17-0400 SaO2% (BldA) [Mass fraction] 97 % Dr. Angeline Valderrama MD Work Phone: [facility] 01-31-2025 06:05-0400 Body mass index (BMI) [Ratio] 27 kg/m2 Dr. Angeline Valderrama MD Work Phone: [facility] 01-31-2025 06:05-0400 Body weight 71.[address] Angeline Valderrama MD Work Phone: [facility] 01-25-2025 10:16-0400 Body mass index (BMI) [Ratio] 26.95 kg/m2 Jose Soto MD Work Phone: [facility] 01-25-2025 10:16-0400 Body weight 71.22 kg Jose Soto MD Work Phone: [facility] 01-25-2025 10:16-0400 Diastolic blood pressure 62 mm[Hg] Jose Soto MD Work Phone: [facility] 01-25-2025 10:16-0400 Systolic blood pressure 100 mm[Hg] Jose Soto MD Work Phone: [facility] 01-18-2025 11:08-0400 Body mass index (BMI) [Ratio] 26.26 kg/m2 Jose Soto MD Work Phone: [facility] 01-18-2025 11:08-0400 Body weight 69.4 kg Jose Soto MD Work Phone: [facility] 01-18-2025 11:08-0400 Diastolic blood pressure 74 mm[Hg] Jose Soto MD Work Phone: [facility] 01-18-2025 11:08-0400 Systolic blood pressure 116 mm[Hg] Jose Soto MD Work Phone: [facility] 01-15-2025 14:48-0400 Body mass index (BMI) [Ratio] 26.26 kg/m2 Geo Marie MD Work Phone: [facility] 01-15-2025 14:48-0400 Body weight 69.4 kg Geo Marie MD Work Phone: [facility] 01-15-2025 14:48-0400 Diastolic blood pressure 64 mm[Hg] Geo Marie MD Work Phone: [facility] 01-15-2025 14:48-0400 Systolic blood pressure 118 mm[Hg] Geo Marie MD Work Phone: [facility] 12-31-2024 11:10-0400 Body mass index (BMI) [Ratio] 25.75 kg/m2 Grisel Shen MD Work Phone: [facility] 12-31-2024 11:10-0400 Body weight 68.04 kg Grisel Shen MD Work Phone: [facility] 12-31-2024 11:10-0400 Diastolic blood pressure 80 mm[Hg] Grisel Shen MD Work Phone: [facility] 12-31-2024 11:10-0400 Systolic blood pressure 120 mm[Hg] Grisel Shen MD Work Phone: [facility] 12-03-2024 13:39-0400 Body mass index (BMI) [Ratio] 23.69 kg/m2 James Hamustapha LOADING SUPERVISOR.PUBLIC HEALTH EPIDEMIOLOGIST Work Phone: [facility] 12-03-2024 13:39-0400 Body weight 62.6 kg James Haury LOADING SUPERVISOR.PUBLIC HEALTH EPIDEMIOLOGIST Work Phone: [facility] 12-03-2024 13:39-0400 Diastolic blood pressure 62 mm[Hg] James Haury LOADING SUPERVISOR.PUBLIC HEALTH EPIDEMIOLOGIST Work Phone: [facility] 12-03-2024 13:39-0400 Systolic blood pressure 110 mm[Hg] James Haury LOADING SUPERVISOR.PUBLIC HEALTH EPIDEMIOLOGIST Work Phone: [facility] 11-20-2024 13:21-0400 Body mass index (BMI) [Ratio] 23.86 kg/m2 Wendy Le LOADING SUPERVISOR.CNM Work Phone: [facility] 11-20-2024 13:21-0400 Body weight 63.05 kg Wendy Le LOADING SUPERVISOR.CNM Work Phone: [facility] 11-20-2024 13:21-0400 Diastolic blood pressure 66 mm[Hg] Wendy Le LOADING SUPERVISOR.CNM Work Phone: [facility] 11-20-2024 13:21-0400 Systolic blood pressure 118 mm[Hg] Wendy Le LOADING SUPERVISOR.CNM Work Phone: [facility] 10-23-2024 09:00-0400 Body mass index (BMI) [Ratio] 22.66 kg/m2 James Haury LOADING SUPERVISOR.PUBLIC HEALTH EPIDEMIOLOGIST Work Phone: [facility] 10-23-2024 09:00-0400 Body weight 59.88 kg James Zamora LOADING SUPERVISOR.PUBLIC HEALTH EPIDEMIOLOGIST Work Phone: [facility] 10-23-2024 09:00-0400 Diastolic blood pressure 62 mm[Hg] James Zamora LOADING SUPERVISOR.PUBLIC HEALTH EPIDEMIOLOGIST Work Phone: [facility] 10-23-2024 09:00-0400 Systolic blood pressure 110 mm[Hg] James Zamora LOADING SUPERVISOR.PUBLIC HEALTH EPIDEMIOLOGIST Work Phone: [facility] 09-25-2024 14:10-0400 Body mass index (BMI) [Ratio] 21.11 kg/m2 Grisel Shen MD Work Phone: [facility] 09-25-2024 14:10-0400 Body weight 55.79 kg Grisel Shen MD Work Phone: [facility] 09-25-2024 14:10-0400 Diastolic blood pressure 60 mm[Hg] Grisel Shen MD Work Phone: [facility] 09-25-2024 14:10-0400 Systolic blood pressure 110 mm[Hg] Grisel Shen MD Work Phone: [facility] 09-14-2024 10:35-0400 Body mass index (BMI) [Ratio] 20.77 kg/m2 Grisel Shen MD Work Phone: [facility] 09-14-2024 10:35-0400 Body weight 54.88 kg Grisel Shen MD Work Phone: [facility] 09-14-2024 10:35-0400 Diastolic blood pressure 62 mm[Hg] Grisel Shen MD Work Phone: [facility] 09-14-2024 10:35-0400 Systolic blood pressure 112 mm[Hg] Grisel Shen MD Work Phone: [facility] 08-31-2024 11:46-0400 Body mass index (BMI) [Ratio] 20.77 kg/m2 Jose Soto MD Work Phone: [facility] 08-31-2024 11:46-0400 Body weight 54.88 kg Jose Soto MD Work Phone: [facility] 08-31-2024 11:46-0400 Diastolic blood pressure 60 mm[Hg] Jose Soto MD Work Phone: [facility] 08-31-2024 11:46-0400 Systolic blood pressure 100 mm[Hg] Jose Soto MD Work Phone: [facility] 07-31-2024 10:24-0400 Body mass index (BMI) [Ratio] 20.25 kg/m2 Geo Marie MD Work Phone: [facility] 07-31-2024 10:24-0400 Body weight 53.52 kg Geo Marie MD Work Phone: [facility] 07-31-2024 10:24-0400 Diastolic blood pressure 72 mm[Hg] Geo Marie MD Work Phone: [facility] 07-31-2024 10:24-0400 Systolic blood pressure 116 mm[Hg] Geo Marie MD Work Phone: [facility] 06-26-2024 09:43-0500 Body height 162.6 cm James Haury LOADING SUPERVISOR.PUBLIC HEALTH EPIDEMIOLOGIST Work Phone: [facility] 06-26-2024 09:43-0500 Body mass index (BMI) [Ratio] 20.08 kg/m2 James Haury LOADING SUPERVISOR.PUBLIC HEALTH EPIDEMIOLOGIST Work Phone: [facility] 06-26-2024 09:43-0500 Body weight 53.07 kg James Haury LOADING SUPERVISOR.PUBLIC HEALTH EPIDEMIOLOGIST Work Phone: [facility] 06-26-2024 09:43-0500 Diastolic blood pressure 62 mm[Hg] James Haury LOADING SUPERVISOR.PUBLIC HEALTH EPIDEMIOLOGIST Work Phone: [facility] 06-26-2024 09:43-0500 Systolic blood pressure 118 mm[Hg] James Haury LOADING SUPERVISOR.PUBLIC HEALTH EPIDEMIOLOGIST Work Phone: [facility] 06-17-2024 15:43-0500 Body temperature 98.29 [degF] Wendy Mayorga LOADING SUPERVISOR.PUBLIC HEALTH EPIDEMIOLOGIST Work Phone: [facility] 06-17-2024 15:43-0500 Body weight 54.9 kg Wendy Mayorga LOADING SUPERVISOR.PUBLIC HEALTH EPIDEMIOLOGIST Work Phone: [facility] 06-17-2024 15:43-0500 Diastolic blood pressure 68 mm[Hg] Wendy Mayorga LOADING SUPERVISOR.PUBLIC HEALTH EPIDEMIOLOGIST Work Phone: [facility] 06-17-2024 15:43-0500 Heart rate 118 /min Wendy Mayorga LOADING SUPERVISOR.PUBLIC HEALTH EPIDEMIOLOGIST Work Phone: [facility] 06-17-2024 15:43-0500 Respiratory rate 21 /min Wendy Mayorga LOADING SUPERVISOR.PUBLIC HEALTH EPIDEMIOLOGIST Work Phone: [facility] 06-17-2024 15:43-0500 SaO2% (BldA) [Mass fraction] 99 % Wendy Mayorga LOADING SUPERVISOR.PUBLIC HEALTH EPIDEMIOLOGIST Work Phone: [facility] 06-17-2024 15:43-0500 Systolic blood pressure 100 mm[Hg] Wendy Mayorga LOADING SUPERVISOR.PUBLIC HEALTH EPIDEMIOLOGIST Work Phone: [facility] 05-07-2024 09:08-0500 Body weight 55.07 kg James Haury LOADING SUPERVISOR.PUBLIC HEALTH EPIDEMIOLOGIST Work Phone: [facility] 05-07-2024 09:08-0500 Diastolic blood pressure 74 mm[Hg] James Haury LOADING SUPERVISOR.PUBLIC HEALTH EPIDEMIOLOGIST Work Phone: [facility] 05-07-2024 09:08-0500 Systolic blood pressure 118 mm[Hg] James Haury LOADING SUPERVISOR.PUBLIC HEALTH EPIDEMIOLOGIST Work Phone: [facility] 04-03-2024 07:28-0500 Body weight 54.43 kg James Haury LOADING SUPERVISOR.PUBLIC HEALTH EPIDEMIOLOGIST Work Phone: [facility] 04-03-2024 07:28-0500 Diastolic blood pressure 62 mm[Hg] James Haury LOADING SUPERVISOR.PUBLIC HEALTH EPIDEMIOLOGIST Work Phone: [facility] 04-03-2024 07:28-0500 Systolic blood pressure 110 mm[Hg] James Hoganmustapha WAYNE.PUBLIC HEALTH EPIDEMIOLOGIST Work Phone: [facility] 02-14-2024 11:05-0400 Body temperature 97.9 [degF] Krislyn Aberegg PA Work Phone: [facility] 02-14-2024 11:05-0400 Body weight 52 kg Krislyn Aberegg PA Work Phone: [facility] 02-14-2024 11:05-0400 Diastolic blood pressure 85 mm[Hg] Krislyn Aberegg PA Work Phone: [facility] 02-14-2024 11:05-0400 Heart rate 90 /min Krislyn Aberegg PA Work Phone: [facility] 02-14-2024 11:05-0400 Respiratory rate 20 /min Krislyn Aberegg PA Work Phone: [facility] 02-14-2024 11:05-0400 SaO2% (BldA) [Mass fraction] 100 % Krislyn Aberegg PA Work Phone: [facility] 02-14-2024 11:05-0400 Systolic blood pressure 126 mm[Hg] Krislyn Aberegg PA Work Phone: [facility] 01-27-2024 10:47-0400 Body temperature 97.81 [degF] Krislyn Aberegg PA Work Phone: [facility] 01-27-2024 10:47-0400 Body weight 53 kg Krislyn Aberegg PA Work Phone: [facility] 01-27-2024 10:47-0400 Diastolic blood pressure 76 mm[Hg] Krislyn Aberegg PA Work Phone: [facility] 01-27-2024 10:47-0400 Heart rate 96 /min Krislyn Aberegg PA Work Phone: [facility] 01-27-2024 10:47-0400 Respiratory rate 16 /min Krislyn Aberegg PA Work Phone: [facility] 01-27-2024 10:47-0400 SaO2% (BldA) [Mass fraction] 99 % Krislyn Aberegg PA Work Phone: [facility] 01-27-2024 10:47-0400 Systolic blood pressure 118 mm[Hg] Krislyn Aberegg PA Work Phone: [facility] 10-25-2023 11:07-0400 Body temperature 97 [degF] Joann Marie APRN.PUBLIC HEALTH EPIDEMIOLOGIST Work Phone: [facility] 10-25-2023 11:07-0400 Body weight 50 kg Joann Marie APRN.PUBLIC HEALTH EPIDEMIOLOGIST Work Phone: [facility] 10-25-2023 11:07-0400 Diastolic blood pressure 58 mm[Hg] Joann Marie APRN.PUBLIC HEALTH EPIDEMIOLOGIST Work Phone: [facility] 10-25-2023 11:07-0400 Heart rate 113 /min Joann Marie APRN.PUBLIC HEALTH EPIDEMIOLOGIST Work Phone: [facility] 10-25-2023 11:07-0400 Respiratory rate 18 /min Joann Marie APRN.PUBLIC HEALTH EPIDEMIOLOGIST Work Phone: [facility] 10-25-2023 11:07-0400 SaO2% (BldA) [Mass fraction] 98 % Joann Marie APRN.PUBLIC HEALTH EPIDEMIOLOGIST Work Phone: [facility] 10-25-2023 11:07-0400 Systolic blood pressure 100 mm[Hg] Joann Marie APRN.PUBLIC HEALTH EPIDEMIOLOGIST Work Phone: [facility] 08-30-2023 11:12-0400 Body temperature 97.3 [degF] Wendy Mayorga LOADING SUPERVISOR.PUBLIC HEALTH EPIDEMIOLOGIST Work Phone: [facility] 08-30-2023 11:12-0400 Body weight 50.6 kg Wendy Mayorga LOADING SUPERVISOR.PUBLIC HEALTH EPIDEMIOLOGIST Work Phone: [facility] 08-30-2023 11:12-0400 Diastolic blood pressure 66 mm[Hg] Wendy Mayorga LOADING SUPERVISOR.PUBLIC HEALTH EPIDEMIOLOGIST Work Phone: [facility] 08-30-2023 11:12-0400 Heart rate 99 /min Wendy Mayorga LOADING SUPERVISOR.PUBLIC HEALTH EPIDEMIOLOGIST Work Phone: [facility] 08-30-2023 11:12-0400 Respiratory rate 16 /min Wendy Mayorga LOADING SUPERVISOR.PUBLIC HEALTH EPIDEMIOLOGIST Work Phone: [facility] 08-30-2023 11:12-0400 SaO2% (BldA) [Mass fraction] 99 % Wendy Mayorga LOADING SUPERVISOR.PUBLIC HEALTH EPIDEMIOLOGIST Work Phone: [facility] 08-30-2023 11:12-0400 Systolic blood pressure 120 mm[Hg] Wendy Mayorga LOADING SUPERVISOR.PUBLIC HEALTH EPIDEMIOLOGIST Work Phone: [facility] 02-19-2023 15:01-0400 Body temperature 98.6 [degF] Wendy Mayorga LOADING SUPERVISOR.PUBLIC HEALTH EPIDEMIOLOGIST Work Phone: [facility] 02-19-2023 15:01-0400 Body weight 49.9 kg Wendy Mayorga LOADING SUPERVISOR.PUBLIC HEALTH EPIDEMIOLOGIST Work Phone: [facility] 02-19-2023 15:01-0400 Diastolic blood pressure 78 mm[Hg] Wendy Mayorga LOADING SUPERVISOR.PUBLIC HEALTH EPIDEMIOLOGIST Work Phone: [facility] 02-19-2023 15:01-0400 Heart rate 118 /min Wendy Mayorga LOADING SUPERVISOR.PUBLIC HEALTH EPIDEMIOLOGIST Work Phone: [facility] 02-19-2023 15:01-0400 Respiratory rate 18 /min Wendy Mayorga LOADING SUPERVISOR.PUBLIC HEALTH EPIDEMIOLOGIST Work Phone: [facility] 02-19-2023 15:01-0400 SaO2% (BldA) [Mass fraction] 96 % Wendy Mayorga LOADING SUPERVISOR.PUBLIC HEALTH EPIDEMIOLOGIST Work Phone: [facility] 02-19-2023 15:01-0400 Systolic blood pressure 122 mm[Hg] Wendy Mayorga LOADING SUPERVISOR.PUBLIC HEALTH EPIDEMIOLOGIST Work Phone: [facility] 01-05-2023 09:48-0400 Body temperature 97.39 [degF] Madeline Yanira LOADING SUPERVISOR.PUBLIC HEALTH EPIDEMIOLOGIST Work Phone: [facility] 01-05-2023 09:48-0400 Body weight 49.44 kg Madeline Yanira LOADING SUPERVISOR.PUBLIC HEALTH EPIDEMIOLOGIST Work Phone: [facility] 01-05-2023 09:48-0400 Diastolic blood pressure 80 mm[Hg] Madeline Yanira LOADING SUPERVISOR.PUBLIC HEALTH EPIDEMIOLOGIST Work Phone: [facility] 01-05-2023 09:48-0400 Heart rate 95 /min Madeline Yanira LOADING SUPERVISOR.PUBLIC HEALTH EPIDEMIOLOGIST Work Phone: [phone] [place] [address] 01-05-2023 09:48-0400 Respiratory rate 16 /min Madeline Yanira LOADING SUPERVISOR.PUBLIC HEALTH EPIDEMIOLOGIST Work Phone: [facility] 01-05-2023 09:48-0400 SaO2% (BldA) [Mass fraction] 97 % Madeline Yanira LOADING SUPERVISOR.PUBLIC HEALTH EPIDEMIOLOGIST Work Phone: [facility] 01-05-2023 09:48-0400 Systolic blood pressure 122 mm[Hg] Madeline Yanira LOADING SUPERVISOR.PUBLIC HEALTH EPIDEMIOLOGIST Work Phone: [facility] 11-19-2022 15:01-0400 Body temperature 98.29 [degF] Madeline Yanira LOADING SUPERVISOR.PUBLIC HEALTH EPIDEMIOLOGIST Work Phone: [facility] 11-19-2022 15:01-0400 Body weight 49.9 kg Madeline Yanira LOADING SUPERVISOR.PUBLIC HEALTH EPIDEMIOLOGIST Work Phone: [facility] 11-19-2022 15:01-0400 Diastolic blood pressure 74 mm[Hg] Madeline Yanira LOADING SUPERVISOR.PUBLIC HEALTH EPIDEMIOLOGIST Work Phone: [facility] 11-19-2022 15:01-0400 Heart rate 118 /min Madeline Yanira LOADING SUPERVISOR.PUBLIC HEALTH EPIDEMIOLOGIST Work Phone: [facility] 11-19-2022 15:01-0400 Respiratory rate 18 /min Madeline Yanira LOADING SUPERVISOR.PUBLIC HEALTH EPIDEMIOLOGIST Work Phone: [facility] 11-19-2022 15:01-0400 SaO2% (BldA) [Mass fraction] 97 % Madeline Doyle LOADING SUPERVISOR.PUBLIC HEALTH EPIDEMIOLOGIST Work Phone: [facility] 11-19-2022 15:01-0400 Systolic blood pressure 122 mm[Hg] Madeline Valenciak LOADING SUPERVISOR.PUBLIC HEALTH EPIDEMIOLOGIST Work Phone: [facility] 08-24-2022 16:18-0400 Body temperature 98.4 [degF] Mirian Athy PA-C Work Phone: [facility] 08-24-2022 16:18-0400 Body weight 51.53 kg Mirian Athy PA-C Work Phone: [facility] 08-24-2022 16:18-0400 Diastolic blood pressure 70 mm[Hg] Mirian Athy PA-C Work Phone: [facility] 08-24-2022 16:18-0400 Heart rate 124 /min Mirian Athy PA-C Work Phone: [facility] 08-24-2022 16:18-0400 Respiratory rate 18 /min Mirian Athy PA-C Work Phone: [facility] 08-24-2022 16:18-0400 SaO2% (BldA) [Mass fraction] 98 % Mirian Athy PA-C Work Phone: [facility] 08-24-2022 16:18-0400 Systolic blood pressure 122 mm[Hg] Mirian Athy PA-C Work Phone: [facility] 05-12-2021 15:13-0500 Body temperature 98.42 [degF] RADHA KIRK MD [facility] 05-12-2021 15:13-0500 Diastolic blood pressure 81 mm[Hg] RADHA KIRK MD [facility] 05-12-2021 15:13-0500 Heart rate 104 /min RADHA KIRK MD [facility] 05-12-2021 15:13-0500 Mean blood pressure 97 mm[Hg] RADHA KIRK MD [facility] 05-12-2021 15:13-0500 Respiratory rate 16 /min RADHA KIRK MD [facility] 05-12-2021 15:13-0500 Systolic blood pressure 128 mm[Hg] RADHA KIRK MD [facility] Encounters Encounter Date Encounter Type Care Provider Facility Start: 02-17-2025 End: 02-17-2025 ambulatory ANGELINE VALDERRAMA Facility:[facility] Start: 02-07-2025 End: 02-10-2025 Evaluation and management of inpatient Wendy Le [facility] Work Phone: Start: 02-01-2025 End: 02-01-2025 ambulatory JOSE SOTO Facility:[facility] Start: 01-31-2025 End: 01-31-[address] Grisel Shen MD [facility] Work Phone: Start: 01-31-2025 End: 01-31-[address] Angeline Valderrama MD Work Phone: [facility] Start: 01-28-2025 End: 01-28-2025 ambulatory MARLENE CRUZ Facility:[facility] Start: 01-25-2025 End: 01-25-2025 Patient encounter procedure Jose Soto MD Work Phone: OB/Gynecology Comment on above: Anemia complicating , third trimester (HCC) (Primary Dx); 37 weeks gestation of (HCC); Supervision of high risk in third trimester (HCC) Start: 01-25-2025 End: 01-25-2025 ambulatory JOSE SOTO Facility:[facility] Start: 01-18-2025 End: 01-18-2025 Patient encounter procedure Jose Soto MD Work Phone: OB/Gynecology Comment on above: Supervision of high risk in third trimester (HCC) (Primary Dx); Anemia complicating , third trimester (HCC); 36 weeks gestation of (HCC); Nausea/vomiting in (HCC); Acute vaginitis Start: 01-18-2025 End: 01-18-2025 ambulatory JOSE SOTO Facility:[facility] Start: 01-15-2025 End: 01-15-2025 Patient encounter procedure Geo Marie MD Work Phone: OB/Gynecology Comment on above: 35 weeks gestation o f (HCC) (Primary Dx); Supervision of high risk in third trimester (HCC); Anemia complicating , third trimester (HCC) Start: 01-15-2025 End: 01-15-2025 ambulatory ANGELINE VALDERRAMA Facility:[facility] Start: 12-31-2024 End: 12-31-2024 Telephone encounter Grisel Shen MD Work Phone: OB/Gynecology Comment on above: DME Orders Start: 12-31-2024 End: 12-31-2024 Office outpatient visit 15 minutes Grisel Shen MD Work Phone: OB/Gynecology Comment on above: 33 weeks gestation o f (HCC) (Primary Dx); Supervision of high risk in third trimester ([facility]); Vaginal discharge Start: 12-31-2024 End: 12-31-2024 ambulatory ANGELINE VALDERRAMA Facility:[facility] Start: 12-24-2024 End: 12-24-2024 Telephone encounter James Zamora APRN.CNP Work Phone: OB/Gynecology Comment on above: Orders Start: 12-17-2024 End: 12-17-2024 ambulatory ANGELINE VALDERRAMA Facility:[facility] Start: 12-08-2024 End: 12-08-2024 Telephone encounter Nurse Injection Moulding Machine Operator [employer] Work Phone: Obstetrics/Gynecology Comment on above: PRAF Start: 12-07-2024 End: 12-07-2024 Telephone encounter Grisel Shen MD Work Phone: OB/Gynecology Comment on above: Letter for Dentist Start: 12-03-2024 End: 12-03-2024 Patient encounter procedure James Zamora APRN.CNP Work Phone: OB/Gynecology Comment on above: Supervision of high risk in third trimester (HCC) (Primary Dx); 29 weeks gestation of (HCC); Anemia complicating , third trimester (HCC); History of delivery, currently (HCC); Group beta Strep positive; Penicillin allergy; Vulvar lesion Start: 12-03-2024 End: 12-03-2024 [facility] Facility[facility] Start: 11-23-2024 End: 11-23-2024 Telephone encounter James Zamora APRN.CNP Work Phone: OB/Gynecology Comment on above: Results Start: 11-20-2024 End: 01-20-2025 Follow-up encounter James Zamora APRN.CNP Work Phone: OB/Gynecology Start: 11-20-2024 End: 11-20-2024 Patient encounter procedure Wendy Le APRN.CNM Work Phone: OB/Gynecology Comment on above: Supervision of high risk in second trimester (HCC) (Primary Dx); 27 weeks gestation of (HCC); History of delivery, currently (HCC); Rh negative state in antepartum period (HCC); Sickle cell trait; Penicillin allergy; Group beta Strep positive Start: 11-20-2024 End: 11-20-2024 [facility] Start: 10-26-2024 End: 10-26-2024 Telephone encounter Nurse Injection Moulding Machine Operator Serg Cummins Work Phone: Obstetrics/Gynecology Comment on above: PRAF Start: 10-23-2024 End: 10-23-2024 Patient encounter procedure James Zamora APRN.CNP Work Phone: OB/Gynecology Comment on above: Supervision of high risk in second trimester (HCC) (Primary Dx); 23 weeks gestation of (HCC); History of delivery, currently (HCC); Rh negative state in antepartum period (HCC); Sickle cell trait; Penicillin allergy; Screening for diabetes mellitus Start: 10-23-2024 End: 10-23-2024 ambulatory ANGELINE VALDERRAMA Facility:[facility] Start: 09-28-2024 End: 11-28-2024 Follow-up encounter Jameslydia Hoganmustapha YANES Work Phone: OB/Gynecology Start: 09-25-2024 End: 09-25-2024 Office outpatient visit 15 minutes Grisel Shen MD Work Phone: OB/Gynecology Comment on above: Supervision of high risk in second trimester (HCC) (Primary Dx); History of delivery; Sickle cell trait; 19 weeks gestation of (HCC); Vaginal itching Start: 09-25-2024 End: 09-25-2024 Patient encounter procedure rPathi Tech 1 Injection Moulding Machine Operator [employer] [facility] [facility] Maternal Medicine Comment on above: Encounter for anatomic survey (HCC) (Primary Dx); 19 weeks gestation of (HCC) Start: 09-25-2024 End: 09-25-2024 ambulatory JAMES ZAMORA Facility:[facility] Start: 09-14-2024 End: 09-14-2024 Office outpatient visit 15 minutes Grisel Shen MD Work Phone: OB/Gynecology Comment on above: Supervision of high risk in second trimester (HCC) (Primary Dx); 18 weeks gestation of (HCC); History of delivery; Sickle cell trait; Penicillin allergy Start: 09-14-2024 End: 09-14-2024 ambulatory JOSE SOTO Facility:[facility] Start: 09-14-2024 End: 09-14-2024 Patient encounter procedure Whi Tech 1 Injection Moulding Machine Operator [facility] Comment on above: History of d elivery (Primary Dx); 18 weeks gestation of (HCC) Start: 09-14-2024 End: 09-14-2024 ambulatory ANGELINE VALDERRAMA Facility:[facility] Start: 08-31-2024 End: 08-31-2024 Patient encounter procedure Whi Tech 1 Injection Moulding Machine Operator [facility]aternal [facility] Comment on above: History of d seleney, currently (HCC) (Primary Dx); 16 weeks gestation of (HCC) Encounter for superv ision of high risk in first trimester, antepartum (HCC) (Primary Dx); 16 weeks gestation of (HCC); History of delivery Start: 08-31-2024 End: 08-31-2024 ambulatory [facility] Facility:[facility] Start: 08-07-2024 End: 10-07-2024 Follow-up encounter Geo Marie MD Work Phone: OB/Gynecology Start: 07-31-2024 End: 07-31-2024 ambulatory JAMES ZAMORA Facility:[facility] Start: 07-31-2024 End: 07-31-2024 [facility] Start: 07-31-2024 End: 07-31-2024 Patient encounter procedure Geo Marie MD Work Phone: OB/Gynecology Comment on above: Encounter for superv ision of high risk in first trimester, antepartum (Primary Dx); History of labor Encounter for antena darya screening for malformation using ultrasound (Primary Dx); Encounter for supervision of high risk in first trimester, antepartum; 6 weeks gestation of Start: 07-21-2024 End: 07-21-2024 Telephone encounter Grisel Shen MD Work Phone: OB/Gynecology Comment on above: Spotting early pregn jennifer Start: 06-30-2024 End: 06-30-2024 Telephone encounter Nurse Injection Moulding Machine Operator Serg [employer]ins Work Phone: Obstetrics/Gynecology Comment on above: PRAF Start: 06-29-2024 End: 07-01-2024 Follow-up encounter James Zamora APRN.CNP Work Phone: OB/Gynecology Comment on above: Yeast vaginitis (Yanely chilel Dx); Bacterial vaginosis Start: 06-26-2024 End: 06-26-2024 ambulatory [facility] Facility:[facility] Start: 06-26-2024 End: 06-26-2024 Patient encounter procedure James Zamora APRN.CNP Work Phone: OB/Gynecology Comment on above: Encounter for superv ision of high risk in first trimester, antepartum (Primary Dx); 6 weeks gestation of ; with uncertain dates in first trimester; Screening for malignant neoplasm of cervix; Screening for STD (sexually transmitted disease); Vaginal itching; History of delivery, currently ; Current with history of pre-term labor in first trimester; Penicillin allergy Start: 06-20-2024 End: 06-24-2024 Follow-up encounter Madeline Doyle APRN.CNP Work Phone: [facility] Start: 06-19-2024 End: 06-19-2024 Telephone encounter Ghislaine WALLER Work Phone: [facility] Comment on above: Results Start: 06-18-2024 End: 06-19-2024 Telephone encounter Ghislaine WALLER Work Phone: [facility] Comment on above: Results Patient Question Start: 06-17-2024 End: 06-17-2024 ambulatory [facility] Facility:[facility] Start: 06-17-2024 End: 06-17-2024 Patient encounter procedure Wendy Mayorga APRN.CNP Work Phone: [facility] Comment on above: Vaginal discharge (P rimary Dx); Missed menses Start: 05-07-2024 End: 05-07-2024 [facility] Start: 05-07-2024 End: 05-07-2024 Patient encounter procedure James Zamora APRN.CNP Work Phone: OB/Gynecology Comment on above: Vaginal itching (Yanely ranjana Dx); Vaginal discharge Start: 04-27-2024 End: 04-27-2024 Refill James Zamora APRN.CNP Work Phone: OB/Gynecology Comment on above: Refill Request Start: 04-20-2024 End: 04-20-2024 Telephone encounter James Zamora APRN.CNP Work Phone: OB/Gynecology Comment on above: Patient Update Start: 04-20-2024 End: 04-20-2024 Emergency department patient visit Sotrm Flannery Facility:[facility] Start: 04-08-2024 End: 04-08-2024 Telephone encounter James Zamora ROSANA.PUBLIC HEALTH EPIDEMIOLOGIST Work Phone: OB/Gynecology Comment on above: Results Start: 04-03-2024 End: 04-03-2024 ambulatory JAMES ZAMORA Facility:[facility] Start: 04-03-2024 End: 04-03-2024 Patient encounter procedure James Zamora ROSANA.PUBLIC HEALTH EPIDEMIOLOGIST Work Phone: OB/Gynecology Comment on above: Bacterial vaginosis (Primary Dx); Vaginal discharge; Urinary frequency Start: 02-15-2024 End: 02-15-2024 Telephone encounter Bhavna Cota APRN.PUBLIC HEALTH EPIDEMIOLOGIST Work Phone: [facility] Comment on above: Results Start: 02-14-2024 End: 02-14-2024 Patient encounter procedure Ghislaine Laguna PA Work Phone: [facility] Comment on above: Vaginal discharge (P rimary Dx) Start: 01-28-2024 End: 01-28-2024 Telephone encounter Ghislaine Laguna PA Work Phone: [facility] Comment on above: Results Start: 01-27-2024 End: 01-27-2024 Patient encounter procedure Ghislaine Oswald Abkimberleygg PA Work Phone: [facility] Comment on above: Vaginal odor (Primar y Dx) Start: 10-26-2023 Telephone encounter Ghislaine Laguna PA Work Phone: [facility] Start: 10-25-2023 End: 10-25-2023 Patient encounter procedure Joann Marie APRN.PUBLIC HEALTH EPIDEMIOLOGIST Work Phone: [facility] Comment on above: Urinary frequency (P rimary Dx); Vaginal odor Start: 08-30-2023 End: 08-30-2023 Patient encounter procedure Wendy Mayorga LOADING SUPERVISOR.PUBLIC HEALTH EPIDEMIOLOGIST Work Phone: [facility] Comment on above: Mycoplasma infection (Primary Dx) Start: 07-11-2023 End: 07-11-2023 ambulatory [facility] Work Phone: Start: 07-11-2023 End: 07-11-2023 [facility] Start: 02-21-2023 Telephone encounter Joann Marie LOADING SUPERVISOR.PUBLIC HEALTH EPIDEMIOLOGIST Work Phone: [facility] Comment on above: Results Start: 02-20-2023 Telephone encounter Madeline Valenciak LOADING SUPERVISOR.PUBLIC HEALTH EPIDEMIOLOGIST Work Phone: [facility] Comment on above: Results Start: 02-19-2023 End: 02-19-2023 Patient encounter procedure Wendy Mayorga LOADING SUPERVISOR.PUBLIC HEALTH EPIDEMIOLOGIST Work Phone: [facility] Comment on above: Vaginal discharge (P rimary Dx) Start: 01-05-2023 End: 01-05-2023 Patient encounter procedure Madeline Valenciak LOADING SUPERVISOR.PUBLIC HEALTH EPIDEMIOLOGIST Work Phone: [facility] Comment on above: Acute vaginitis (Yanely ranjana Dx) Start: 12-26-2022 End: 12-26-2022 ambulatory [facility] Work Phone: Start: 12-26-2022 End: 12-26-2022 Patient encounter procedure [facility], Specimen Work Phone: Start: 11-20-2022 Telephone encounter Bhavna Carrasquillo LOADING SUPERVISOR.PUBLIC HEALTH EPIDEMIOLOGIST Work Phone: [facility] Comment on above: Results Start: 11-19-2022 End: 11-19-2022 Patient encounter procedure Madeline Valenciak LOADING SUPERVISOR.PUBLIC HEALTH EPIDEMIOLOGIST Work Phone: [facility] Comment on above: Acute vaginitis (Yanely ranjana Dx) Start: 10-16-2022 End: 10-16-2022 Patient encounter procedure [facility], Specimen Work Phone: Start: 09-13-2022 End: 09-13-2022 ambulatory [facility] Work Phone: Start: 09-13-2022 End: 09-13-2022 Patient encounter procedure [facility], [place] [facility] Start: 09-02-2022 ambulatory Liz Ocampo RN NURSE STEAMING MACHINE OPERATOR Comment on above: Information Start: 08-25-2022 Telephone encounter Wendy Maria ggs LOADING SUPERVISOR.PUBLIC HEALTH EPIDEMIOLOGIST Work Phone: [facility] Comment on above: Results Start: 08-24-2022 End: 08-24-2022 Patient encounter procedure Mirian Figueredo Lydia WALLER-C Work Phone: [facility] Comment on above: Exposure to STD (Yanely ranjana Dx) Start: 05-09-2022 End: 05-09-2022 ambulatory [facility] Work Phone: Start: 05-09-2022 End: 05-09-2022 Patient encounter procedure [facility], Specimen Start: 03-22-2022 End: 03-22-2022 ambulatory [facility] Work Phone: Start: 03-22-2022 End: 03-22-2022 Patient encounter procedure [facility] [place] [facility] Start: 02-01-2022 End: 02-01-2022 ambulatory [facility] Work Phone: Start: 02-01-2022 End: 02-01-2022 Patient encounter procedure [facility], Specimen Start: 10-31-2021 End: 10-31-2021 Patient encounter procedure [facility], Specimen Start: 08-31-2021 End: 08-31-2021 Patient encounter procedure [facility], Specimen Start: 08-02-2021 End: 08-02-2021 Patient encounter procedure [facility], Specimen Start: 06-21-2021 End: 06-21-2021 Patient encounter procedure [facility] [place] [facility] [employer] Start: 05-12-2021 End: 05-12-2021 Emergency department patient visit RADHA KIRK MD [facility] Procedures Date Procedure Procedure Detail Performing Clinician Start: 02-07-[address] Angeline Valderrama MD Work Phone: Start: 02-07-2025 Serologic test for syphilis Dr. Angeline Valderrama MD Work Phone: Start: 01-31-2025 Urnls dip stick/tabl et reagent auto microscopy Dr. Angeline Valderrama MD Work Phone: Start: 01-25-2025 Urnls dip stick/tabl et rgnt non-auto w/o micrscp Jose Soto MD Work Phone: Start: 01-15-2025 Urnls dip stick/tabl et rgnt non-auto w/o micrscp Geo Marie MD Work Phone: Start: 11-20-2024 Antibody screen BRANDEN VALDERRAMA Comment on above: Order Comment: Speci men Type: BLOOD SPECIMEN Ordering Facility: [facility] Address: [address] [place] [address] Performed By: #### T SPN #### [facility] CLIA [id number] [address] [place] [address] [place] Start: 09-25-2024 Us preg uterus after 1st trimest 1/ gestation James Zamora APRN.CNP Work Phone: Start: 09-14-2024 Us preg uterus after 1st trimest / gestation Jose Soto MD Work Phone: Start: 08-31-2024 Us preg uterus after 1st trimest / gestation Geo Marie MD Work Phone: Start: 07-31-2024 Antibody screen BRANDEN VALDERRAMA Comment on above: Order Comment: Speci men Type: BLOOD SPECIMEN Ordering Facility: [facility] Address: [address] [place] [address] Performed By: #### T SPN #### [facility] CLIA [id number] [address] [place] [address] [place] Start: 07-31-2024 Us preg uterus after 1st trimest 05/13 gestation James Zamora APRN.PUBLIC HEALTH EPIDEMIOLOGIST Work Phone: Start: 06-17-2024 UA DIP,URINE HCG (POC) [facility] Provider Start: 06-17-2024 Urnls dip stick/tabl et rgnt auto w/o microscopy Joann Marie LOADING SUPERVISOR.PUBLIC HEALTH EPIDEMIOLOGIST Work Phone: Start: 04-03-2024 Urnls dip stick/tabl et rgnt auto w/o microscopy James Zamora LOADING SUPERVISOR.PUBLIC HEALTH EPIDEMIOLOGIST Work Phone: Start: 02-19-2023 BACTERIAL VAGINOSIS NAAT Wendy Mayorga APRN.PUBLIC HEALTH EPIDEMIOLOGIST Work Phone: Start: 02-19-2023 Iadna trichomonas vaginalis amplified probe tech Wendy Mayorga APRN.PUBLIC HEALTH EPIDEMIOLOGIST Work Phone: Start: 12-26-2022 Bacterial nucleic ac id assay Start: 12-26-2022 Chlamydia trachomati s (PCR) Start: 12-26-2022 Cytopathology proced ure, preparation of smear, genital source Start: 12-26-2022 Investigation of transfusion reaction Start: 11-19-2022 BACTERIAL VAGINOSIS NAAT Madeline Doyle APRN.PUBLIC HEALTH EPIDEMIOLOGIST Work Phone: Start: 11-19-2022 Iadna chlamydia trachomatis amplified probe tq Madeline Doyle APRN.PUBLIC HEALTH EPIDEMIOLOGIST Work Phone: Start: 08-24-2022 Urine test visual color cmprsn ban Freeman PA-C Work Phone: Start: 08-31-2021 Urine culture Cytopathology proced ure, preparation of smear, genital source Investigation of transfusion reaction Urine culture Plan of Treatment Date Care Activity Detail Author Start: 06-26-2027 Screening for malignant neoplasm of cervix Cervical Cancer Screening [facility] Start: 02-10-2025 Patient discharge [facility] Start: 02-08-2025 End: 02-08-2025 Patient encounter procedure 02/08/2025 10:00 AM EDT Routine Office Visit OB/Gynecology [address] [place] [address] Jose Soto MD [address] [place] [address] OB OB/Gynecology Comment on above: OB Start: 02-07-2025 Administration of blood product [facility] Start: 02-07-2025 Application of ice collar, cap or bag [facility] Start: 02-07-2025 Catheterization of vein [facility] Start: 02-07-2025 Introduction of urinary catheter [facility] Start: 02-07-2025 Measuring intake and output [facility] Start: 02-07-2025 Notification of physician [facility] Start: 02-07-2025 Procedure discontinued [facility] Start: 02-07-2025 Provision of activity privileges [facility] Start: 02-07-2025 Vital signs measurements [facility] Start: 02-07-2025 End: 02-07-2025 [facility] Start: 02-07-2025 Documentation procedure [facility] Start: 02-07-2025 Admission procedure [facility] Start: 02-07-2025 Evaluation and management of inpatient 39 weeks gestation of [facility] Work Phone: Start: 02-07-2025 Verification routine [facility] Start: 02-07-2025 Consultation [facility] Start: 02-07-2025 [facility] Start: 02-01-2025 End: 02-01-2025 Patient encounter procedure 02/01/2025 1:30 PM EDT Routine Office Visit OB/Gynecology [address] [place] [address] Jose Soto MD [address] [place] [address] OB OB/Gynecology Comment on above: OB Start: 01-31-2025 Nonstress test [facility] Start: 01-31-2025 Obstetric monitoring [facility] Start: 01-31-2025 Vital signs measurements [facility] Start: 01-31-2025 [facility] Start: 01-31-2025 Patient discharge [facility] Start: 01-25-2025 End: 01-25-2025 Patient encounter procedure 01/25/2025 10:00 AM EDT Routine Office Visit OB/Gynecology [address] [place] [address] Jose Soto MD [address] [place] [address] OB OB/Gynecology Comment on above: OB Start: 01-18-2025 End: 01-18-2025 Patient encounter procedure 01/18/2025 11:10 AM EDT Routine Office Visit OB/Gynecology [address] [place] [address] Jose Soto MD [address] [place] [address] OB OB/Gynecology Comment on above: OB Start: 01-15-2025 End: 01-15-2025 Patient encounter procedure 01/15/2025 2:40 PM EDT Routine Office Visit OB/Gynecology [address] [place] [address] Geo Marie MD [address] [place] [address] OB OB/Gynecology Comment on above: OB Start: 01-11-2025 Influenza vaccination [facility] Start: 01-11-2025 RSV Vaccine (1 - Risk 1-dose series) RSV Vaccine (1 - Risk 1-dose series) [facility] Start: 12-31-2024 End: 12-31-2024 Patient encounter procedure 12/31/2024 11:20 AM EDT Routine Office Visit OB/Gynecology [address] [place] [address] Jose Soto MD [address] [place] [address] OB OB/Gynecology Comment on above: OB Start: 12-17-2024 End: 12-17-2024 Patient encounter procedure 12/17/2024 11:10 AM EDT Routine Office Visit OB/Gynecology [address] [place], [place] [id number] Grisel Shen MD [address] [place] [address] OB OB/Gynecology Comment on above: OB Start: 12-03-2024 End: 03-04-2025 Herpes simplex virus+Varicella zoster virus DNA [Presence] in Unspecified specimen by RC with probe detection [facility] Work Phone: Comment on above: Expected: 12/03/2024, Expires: Start: 12-03-2024 End: 12-03-2024 Patient encounter procedure 12/03/2024 1:50 PM EDT Routine Office Visit OB/Gynecology [address] [place], [place] [id number] Grisel Shen MD [address] [place], [place] [id number] OB OB/Gynecology Comment on above: OB Start: 11-24-2024 End: 11-24-2024 ambulatory 11/24/2024 3:30 PM EDT [facility] [address] [place], [place] [id number] Sparkle Goodman MD [address] [place] [address] : Penicillin allergy [Z88.0] Allergy Comment on above: : Penicillin allergy [Z88.0] Start: 11-20-2024 End: 02-19-2025 Bacteria identified in Urine by Culture [facility] Comment on above: Expected: 11/20/2024, Expires: Start: 11-20-2024 End: 11-20-2024 Patient encounter procedure 11/20/2024 1:15 PM EDT Routine Office Visit OB/Gynecology [address] [place] [address] Wendy Le APRN.CN [address] [place] [address] ob OB/Gynecology Comment on above: ob Start: 10-23-2024 End: 01-22-2025 ANEMIA REFLEX PANEL ANEMIA REFLEX PANEL Lab Routine Supervision of high risk in second trimester (HCC) 23 weeks gestation of (HCC) Expected: 10/23/2024, Expires: 01/22/2025 [facility] Comment on above: Expected: 10/23/2024, Expires: Start: 10-23-2024 End: 10-23-2025 GESTATIONAL GLUCOSE SCREEN, 1-HOUR, 50 GRAM, NON-FASTING GESTATIONAL GLUCOSE SCREEN, 1-HOUR, 50 GRAM, NON-FASTING Lab Routine Supervision of high risk in second trimester (HCC) 23 weeks gestation of ([facility]) Screening for diabetes mellitus Expected: 10/23/2024, Expires: 10/23/2025 [facility] Work Phone: Comment on above: Expected: 10/23/2024, Expires: Start: 10-23-2024 End: 10-23-2025 SYPHILIS TREPONEMAL W/REFLEX SYPHILIS TREPONEMAL W/REFLEX Lab Routine Supervision of high risk in second trimester (HCC) 23 weeks gestation of (HCC) Expected: 10/23/2024, Expires: 10/23/2025 [facility] Comment on above: Expected: 10/23/2024, Expires: 6 Start: 10-23-2024 End: 01-22-2025 TYPE + SCREEN TYPE + SCREEN Blood Bank Routine Supervision of high risk in second trimester (HCC) 23 weeks gestation of (HCC) Rh negative state in antepartum period (HCC) Expected: 10/23/2024, Expires: 01/22/2025 [facility] Comment on above: Expected: 10/23/2024, Expires: 5 Start: 10-23-2024 End: 10-23-2024 Patient encounter procedure OB/Gynecolog y Comment on above: AARON Start: 09-25-2024 End: 09-25-2024 Patient encounter procedure [facility] al [facility] Comment on above: Anatomy Anatomy/OB Start: 09-14-2024 End: 09-14-2024 Patient encounter procedure Maternal Fet al Medicine Comment on above: 16 weeks gestation of (HCC) [Z 3A.16]; History of delivery [Z87.51] AARON Start: 08-31-2024 End: 08-31-2025 OBSTETRIC ULTRASOUND WHI OBSTETRIC ULTRASOUND WHI Anc Imaging Routine 16 weeks gestation of ([facility]) Encounter for supervision of high risk in first trimester, antepartum ([facility]) History of delivery Expected: 08/31/2024, Expires: 08/31/2025 [facility] Comment on above: Expected: 08/31/2024, Expires: 6 Start: 08-27-2024 End: 08-27-2024 Patient encounter procedure Maternal Fet al Medicine Comment on above: cervical length OB Start: 07-31-2024 End: 10-30-2024 Chromosome 21 trisomy [Presence] in Blood or Tissue by Cytogenetics [facility] Work Phone: Comment on above: Expected: 07/31/2024, Expires: 5 Start: 07-31-2024 End: 07-31-2025 OBSTETRIC ULTRASOUND WHI OBSTETRIC ULTRASOUND WHI Anc Imaging Routine History of labor Expected: 07/31/2024, Expires: 07/31/2025 [facility] Comment on above: Expected: 07/31/2024, Expires: 6 Start: 07-31-2024 End: 07-31-2024 Patient encounter procedure Maternal Fet al Medicine Comment on above: Nuchal Nuchal/OB Start: 07-06-2024 End: 07-06-2024 Patient encounter procedure 07/06/2024 3:15 PM EST Office Visit OB/Gynecology [address] [place] [address] James Zamora APRN.PUBLIC HEALTH EPIDEMIOLOGIST [address] [place] [address] Annual OB/Gynecology Comment on above: Annual Start: 06-26-2024 End: 09-25-2024 ANEMIA REFLEX PANEL ANEMIA REFLEX PANEL Lab Routine Expected: 06/26/2024, Expires: 09/25/2024 [facility] Comment on above: Expected: 06/26/2024, Expires: Start: 06-26-2024 End: 09-25-2024 Hemoglobin A1c in Blood HEMOGLOBIN A1C Lab Routine Expected: 06/26/2024, Expires: 09/25/2024 [facility] Comment on above: Expected: 06/26/2024, Expires: Start: 06-26-2024 End: 09-25-2024 HEMOGLOBIN EVALUATION CASCADE HEMOGLOBIN EVALUATION CASCADE Lab Routine Encounter for supervision of high risk in first trimester, antepartum 6 weeks gestation of Expected: 06/26/2024, Expires: 09/25/2024 [facility] Comment on above: Expected: 06/26/2024, Expires: Start: 06-26-2024 End: 09-25-2024 Hepatitis B virus surface Ag [Presence] in Serum HEPATITIS B SURFACE ANTIGEN Lab Routine Expected: 06/26/2024, Expires: 09/25/2024 [facility] Comment on above: Expected: 06/26/2024, Expires: Start: 06-26-2024 End: 09-25-2024 Hepatitis C virus Ab [Presence] in Serum HEPATITIS C ANTIBODY IA WITH CONFIRMATION Lab Routine Expected: 06/26/2024, Expires: 09/25/2024 [facility] Comment on above: Expected: 06/26/2024, Expires: Start: 06-26-2024 End: 09-25-2024 HIV 1+2 Ab [Presence] in Serum or Plasma by Immunoassay HIV 1/2 COMBO WITH REFLEX TO DIFFERENTIATION Lab Routine Expected: 06/26/2024, Expires: 09/25/2024 [facility] Comment on above: Expected: 06/26/2024, Expires: Start: 06-26-2024 End: 06-26-2025 OBSTETRIC ULTRASOUND WHI OBSTETRIC ULTRASOUND WHI Anc Imaging Routine Encounter for supervision of high risk in first trimester, antepartum 6 weeks gestation of Expected: 06/26/2024, Expires: 06/26/2025 [facility] Comment on above: Expected: 06/26/2024, Expires: Start: 06-26-2024 End: 09-25-2024 RUBELLA IGG ANTIBODY RUBELLA IGG ANTIBODY Lab Routine Expected: 06/26/2024, Expires: 09/25/2024 [facility] Comment on above: Expected: 06/26/2024, Expires: Start: 06-26-2024 End: 09-25-2024 SYPHILIS TREPONEMAL W/REFLEX SYPHILIS TREPONEMAL W/REFLEX Lab Routine Expected: 06/26/2024, Expires: 09/25/2024 [facility] Comment on above: Expected: 06/26/2024, Expires: Start: 06-26-2024 End: 09-25-2024 TYPE + SCREEN TYPE + SCREEN Blood Bank Routine Expected: 06/26/2024, Expires: 09/25/2024 [facility] Comment on above: Expected: 06/26/2024, Expires: Start: 06-26-2024 End: 06-26-2024 Patient encounter procedure 06/26/2024 9:30 AM EST Initial Office Visit OB/Gynecology [address] [place] [address] James Zamora APRN.PUBLIC HEALTH EPIDEMIOLOGIST [address] [place] [address] lmp 05/09/2024 OB/Gynecology Comment on above: lmp 05/09/2024 Start: 05-18-2024 End: 05-18-2024 Patient encounter procedure 05/18/2024 8:15 AM EST Office Visit OB/Gynecology [address] [place] [address] James Zamora, LOADING SUPERVISOR.PUBLIC HEALTH EPIDEMIOLOGIST [address] [place] [address] Annual OB/Gynecology Comment on above: Annual Start: 05-07-2024 End: 05-07-2024 Patient encounter procedure 05/07/2024 9:15 AM EST Office Visit OB/Gynecology [address] [place] [address] James Zamora APRN.PUBLIC HEALTH EPIDEMIOLOGIST [address] [place] [address] Recheck urine/yeast OB/Gynecology Comment on above: Recheck urine/yeast Start: 04-03-2024 End: 07-03-2024 Bacteria identified in Urine by Culture URINE CULTURE Microbiology Routine Urinary frequency Expected: 04/03/2024, Expires: 07/03/2024 [facility] Work Phone: Comment on above: Expected: 04/03/2024, Expires: Start: 01-12-2024 Covid-19 Vaccine ( season) Covid-19 Vaccine () [facility] Start: 01-12-2024 Covid-19 Vaccine ( season) Covid-19 Vaccine ( season) [facility] Start: 01-12-2024 Influenza vaccination [facility] Start: 05-13-2023 Behavioral Health Screening Behavioral Health Screening [facility] Start: 01-11-2023 Covid-19 Vaccine ( season) Covid-19 Vaccine () [facility] Start: 01-11-2023 Influenza vaccination [facility] Start: 08-24-2022 End: 10-24-2022 Hepatitis B virus surface Ag [Presence] in Serum HEP B SURF AG SCRN Lab Routine Exposure to STD Expected: 08/24/2022, Expires: 10/24/2022 [facility] Work Phone: Comment on above: Expected: 08/24/2022, Expires: Start: 08-24-2022 End: 10-24-2022 Hepatitis C virus Ab [Presence] in Serum HEP C AB IA W/CONF SCRN Lab Routine Exposure to STD Expected: 08/24/2022, Expires: 10/24/2022 [facility] Work Phone: Comment on above: Expected: 08/24/2022, Expires: 3 Start: 08-24-2022 End: 10-24-2022 HIV 1+2 Ab [Presence] in Serum or Plasma by Immunoassay HIV 1 2 COMBO(AG/AB),WITH REFLEX TO DIFFERENTIATION Lab Routine Exposure to STD Expected: 08/24/2022, Expires: 10/24/2022 [facility] Work Phone: Comment on above: Expected: 08/24/2022, Expires: 3 Start: 08-24-2022 End: 10-24-2022 SYPHILIS TOTAL W/REFLEX SYPHILIS TOTAL W/REFLEX Lab Routine Exposure to STD Expected: 08/24/2022, Expires: 10/24/2022 [facility] Work Phone: Comment on above: Expected: 08/24/2022, Expires: 3 Start: 05-13-2022 DEPRESSION ASSESSMENT DEPRESSION ASSESSMENT [facility] Start: 2022 HPV Vaccine (1 - 3-dose SCDM series) HPV Vaccine (1 - 3-dose SCDM series) [facility] Start: 02-01-2022 [facility] Work Phone: Start: 02-23-2016 PAP TESTING PAP TESTING [facility] Start: 02-23-2016 Screening for malignant neoplasm of cervix [facility] Start: 2014 Hepatitis B Vaccine (1 of 3 - 19+ 3-dose series) Hepatitis B Vaccine (1 of 3 - 19+ 3-dose series) [facility] Start: 2014 Pneumococcal vaccination Pneumococcal Vaccine (1 of 2 - PCV) [facility] Start: 2014 Shingrix Vaccine (1 of 2) Shingrix Vaccine (1 of 2) [facility] Start: 2014 Urine microalbumin profile [facility] Start: 2013 Anxiety Screening Anxiety Screening [facility] Start: 2013 Depression Screening Depression Screening [facility] Start: 2013 HEPATITIS C SCREENING HEPATITIS C SCREENING [facility] Start: 2013 Hepatitis C screening Hepatitis C Screening [facility] Start: 2013 HIV SCREENING HIV SCREENING [facility] Start: 2013 HIV screening HIV Screening [facility] Start: 2006 Urine microalbumin profile DTaP,Tdap,Td Vaccine (6 - Tdap) [facility] Start: 2005 Meningococcal B Vaccine (1 of 4 - Increased Risk) Meningococcal B Vaccine (1 of 4 - Increased Risk) [facility] Start: 2005 Meningococcal B Vaccine (1 of 5 - Increased Risk) Meningococcal B Vaccine (1 of 5 - Increased Risk) [facility] Start: 2001 PNEUMOCOCCAL (1 - PCV) PNEUMOCOCCAL (1 - PCV) [facility] Start: 2001 [facility] Start: 1997 Meningococcal Conjugate Vaccine (1 - Risk 2-dose series) Meningococcal Conjugate Vaccine (1 - Risk 2-dose series) [facility] Start: 05-25-1996 Hib Vaccine (1 of 1 - Risk 1-dose series) Hib Vaccine (1 of 1 - Risk 1-dose series) [facility] Start: 1995 COVID-19 VACCINE (#1) COVID-19 VACCINE (#1) [facility] Start: 1995 HEPATITIS B (1 of 3 - 3-dose series) HEPATITIS B (1 of 3 - 3-dose series) [facility] Start: 1995 Hepatitis B Vaccine (1 of 3 - 3-dose series) Hepatitis B Vaccine (1 of 3 - 3-dose series) [facility] Bacteria identified in Urine by Culture URINE CULTURE Microbiology Routine Urinary frequency Ordered: 10/25/2023 [facility] Comment on above: Ordered: 10/25/2023 Bacteria identified in Urine by Culture BACTERIAL CULTURE, URINE Microbiology Routine Vaginal discharge Ordered: 06/17/2024 [facility] Comment on above: Ordered: 06/17/2024 Bacteria identified in Urine by Culture BACTERIAL CULTURE, URINE Microbiology Routine 06/26/2024 10:54 AM EST [facility] BACTERIAL VAGINOSIS AMPLIFICATION BACTERIAL VAGINOSIS AMPLIFICATION Lab Routine Exposure to STD 08/24/2022 5:57 PM EDT [facility] Work Phone: BACTERIAL VAGINOSIS NAAT BACTERI AL VAGINOSIS NAAT Lab Routine Vaginal odor Ordered: 10/25/2023 [facility] Comment on above: Ordered: 10/25/2023 BACTERIAL VAGINOSIS NAAT BACTERI AL VAGINOSIS NAAT Lab Routine Vaginal odor 01/27/2024 11:19 AM EDT [facility] BACTERIAL VAGINOSIS NAAT BACTERI AL VAGINOSIS NAAT Lab Routine Vaginal discharge Ordered: 02/14/2024 [facility] Comment on above: Ordered: 02/14/2024 BACTERIAL VAGINOSIS NAAT BACTERI AL VAGINOSIS NAAT Lab Routine Bacterial vaginosis Vaginal discharge 04/03/2024 8:17 AM EST [facility] BACTERIAL VAGINOSIS NAAT BACTERI AL VAGINOSIS NAAT Lab Routine Vaginal discharge 05/07/2024 9:38 AM EST [facility] BACTERIAL VAGINOSIS NAAT BACTERI AL VAGINOSIS NAAT Lab Routine Vaginal discharge Ordered: 06/17/2024 [facility] Work Phone: Comment on above: Ordered: 06/17/2024 BACTERIAL VAGINOSIS NAAT BACTERI AL VAGINOSIS NAAT Lab Routine Vaginal itching 06/26/2024 10:54 AM EST [facility] BACTERIAL VAGINOSIS NAAT BACTERI AL VAGINOSIS NAAT Lab Routine Supervision of high risk in second trimester (HCC) Vaginal itching 09/25/2024 2:27 PM EDT [facility] BACTERIAL VAGINOSIS NAAT BACTERI AL VAGINOSIS NAAT Lab Routine Vaginal discharge 12/31/2024 1:20 PM T [facility] Work Phone: SHANNAN / TRICHOMONA S AMPLIFICATION SHANNAN / TRICHOMONAS AMPLIFICATION Microbiology Routine Exposure to STD 08/24/2022 5:57 PM T [facility] Work Phone: SHANNAN/TRICHOMONAS NAAT SHANNAN /TRICHOMONAS NAAT Lab Routine Vaginal odor Ordered: 10/25/2023 [facility] Comment on above: Ordered: 10/25/2023 SHANNAN/TRICHOMONAS NAAT SHANNAN /TRICHOMONAS NAAT Lab Routine Vaginal odor 01/27/2024 11:19 AM T [facility] Work Phone: SHANNAN/TRICHOMONAS NAAT SHANNAN /TRICHOMONAS NAAT Lab Routine Vaginal discharge Ordered: 02/14/2024 [facility] Work Phone: Comment on above: Ordered: 02/14/2024 SHANNAN/TRICHOMONAS NAAT SHANNAN /TRICHOMONAS NAAT Lab Routine Bacterial vaginosis Vaginal discharge 04/03/2024 8:17 AM [facility] SHANNAN/TRICHOMONAS NAAT SHANNAN /TRICHOMONAS NAAT Lab Routine Vaginal discharge 05/07/2024 9:38 AM [facility] Work Phone: SHANNAN/TRICHOMONAS NAAT SHANNAN /TRICHOMONAS NAAT Lab Routine Vaginal discharge Ordered: 06/17/2024 [facility] Comment on above: Ordered: 06/17/2024 SHANNAN/TRICHOMONAS NAAT SHANNAN /TRICHOMONAS NAAT Lab Routine Vaginal itching 06/26/2024 10:54 AM [facility] SHANNAN/TRICHOMONAS NAAT SHANNAN /TRICHOMONAS NAAT Lab Routine Supervision of high risk in second trimester (HCC) Vaginal itching 09/25/2024 2:27 PM T [facility] Work Phone: SHANNAN/TRICHOMONAS NAAT SHANNAN /TRICHOMONAS NAAT Lab Routine Vaginal discharge 12/31/2024 1:20 PM [facility] Chlamydia trachomatis+Neisseria gonorrhoeae DNA [Presence] in Unspecified specimen by RC with probe detection GC/CHLAMYDIA DNA DET Lab Routine Exposure to STD 08/24/2022 5:56 PM [facility] Work Phone: Chlamydia trachomatis+Neisseria gonorrhoeae DNA [Presence] in Unspecified specimen by RC with probe detection GONORRHEA/CHLAMYDIA NAAT Lab Routine Vaginal discharge 02/19/2023 3:17 PM T [facility] Work Phone: Chlamydia trachomatis+Neisseria gonorrhoeae DNA [Presence] in Unspecified specimen by RC with probe detection GONORRHEA/CHLAMYDIA NAAT Lab Routine Vaginal discomfort Ordered: 02/20/2023 [facility] Work Phone: Comment on above: Ordered: 02/20/2023 Chlamydia trachomatis+Neisseria gonorrhoeae DNA [Presence] in Unspecified specimen by RC with probe detection GONORRHEA/CHLAMYDIA NAAT Lab Routine Vaginal odor Ordered: 10/25/2023 [facility] Comment on above: Ordered: 10/25/2023 Chlamydia trachomatis+Neisseria gonorrhoeae DNA [Presence] in Unspecified specimen by RC with probe detection GONORRHEA/CHLAMYDIA NAAT Lab Routine Vaginal odor 01/27/2024 11:19 AM EDT [facility] Chlamydia trachomatis+Neisseria gonorrhoeae DNA [Presence] in Unspecified specimen by RC with probe detection GONORRHEA/CHLAMYDIA NAAT Lab Routine Vaginal discharge Ordered: 02/14/2024 [facility] Comment on above: Ordered: 02/14/2024 Chlamydia trachomatis+Neisseria gonorrhoeae DNA [Presence] in Unspecified specimen by RC with probe detection GONORRHEA/CHLAMYDIA NAAT Lab Routine Bacterial vaginosis Vaginal discharge 04/03/2024 8:17 AM EST [facility] Chlamydia trachomatis+Neisseria gonorrhoeae DNA [Presence] in Unspecified specimen by RC with probe detection GONORRHEA/CHLAMYDIA NAAT Lab Routine Vaginal discharge Ordered: 06/17/2024 [facility] Comment on above: Ordered: 06/17/2024 Chlamydia trachomatis+Neisseria gonorrhoeae DNA [Presence] in Unspecified specimen by RC with probe detection GONORRHEA/CHLAMYDIA NAAT Lab Routine 06/26/2024 10:54 AM [facility] Chlamydia trachomatis+Neisseria gonorrhoeae DNA [Presence] in Unspecified specimen by RC with probe detection GONORRHEA/CHLAMYDIA NAAT Lab Routine Vaginal discharge 12/31/2024 1:20 PM EDT [facility] Dehydroepiandrostero ne sulfate (DHEA-S) [Mass/volume] in Serum or Plasma [facility] End: 08-31-2025 OBSTETRIC ULTRASOUND WHI OBSTETRIC ULTRASOUND WHI Anc Imaging Routine 16 weeks gestation of (HCC) History of delivery Every other week for 4 Occurrences starting 08/31/2024 until 08/31/2025 [facility] Work Phone: Comment on above: Every other week for 4 Occurrences start ing 08/31/2024 until 08/31/2025 PAP TEST PAP TEST Lab Rou marquita Screening for malignant neoplasm of cervix 06/26/2024 10:54 AM EST [facility] Path report.final Dx Spec [facility] Patient Education Kick Counts ED False Labor OB Triage: Return to Hospital or Notify Physician if you Experience: [facility] Work Phone: 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 ULTRASO UND Anc Imaging Routine with uncertain dates in first trimester Ordered: 06/26/2024 [facility] Work Phone: Comment on above: Ordered: 06/26/2024 Procedure [facility] Work Phone: ROUTINE, GR OUP B STREPTOCOCCUS BY PCR ROUTINE, GROUP B STREPTOCOCCUS BY PCR Microbiology Routine Supervision of high risk in third trimester ([facility]) 36 weeks gestation of ([facility]) 01/18/2025 3:15 PM EDT [facility] Serum testosterone measurement [facility] Testosterone Free [Mass/volume] in Serum or Plasma [facility] Testosterone measurement [facility] Therapeutic prophyla ctic/dx injection subq/im THER/PROPH/DIAG INJ, SC/IM Procedures Routine Rh negative state in antepartum period ([facility]) Ordered: 11/20/2024 [facility] Work Phone: Comment on above: Ordered: 11/20/2024 UA DIP, URINE (POC) UA DIP, URIN E (POC) Lab Routine Urinary frequency Ordered: 10/25/2023 [facility] Work Phone: Comment on above: Ordered: 10/25/2023 URINE OB DIP B/O URINE OB DIP B/ O Lab Routine Supervision of high risk in third trimester ([facility]) Anemia complicating , third trimester ([facility]) 36 weeks gestation of ([facility]) Ordered: 01/18/2025 [facility] Work Phone: Comment on above: Ordered: 01/18/2025 Urine test visual color cmprsn meths HCG QUAL UR B/O Lab Routine Missed menses Ordered: 06/17/2024 [facility] Work Phone: Comment on above: Ordered: 06/17/2024 UROGENITAL UREAPLASM A AND MYCOPLASMA SPECIES BY PCR, FOR GENITAL, RECTAL, URINE SAMPLES UROGENITAL UREAPLASMA AND MYCOPLASMA SPECIES BY PCR, FOR GENITAL, RECTAL, URINE SAMPLES Lab Routine Bacterial vaginosis Vaginal discharge Urinary frequency 04/03/2024 8:17 AM [facility] UROGENITAL UREAPLASM A AND MYCOPLASMA SPECIES BY PCR, FOR GENITAL, RECTAL, URINE SAMPLES UROGENITAL UREAPLASMA AND MYCOPLASMA SPECIES BY PCR, FOR GENITAL, RECTAL, URINE SAMPLES Lab Routine Vaginal discharge Vaginal itching 05/07/2024 9:38 AM EST [facility] Immunizations Immunization Date Immunization Notes Care Provider Elizabet daniel 11-20-2024 RHO(D) immune globul in- IV or IM Wendy Le APRN.CNM Work Phone: [facility] Payers Date Payer Category Payer Self-pay [id number] 2022 Medicaid [id number] 2016 Unknown [id number] Unknown [id number] Unknown [id number] Unknown [id number] Social History Date Type Detail Facility Start: 05-01-2018 Light tobacco smoker (finding) [facility] Sex Assigned At [facility] Start: 10-01-2020 End: 10-01-2020 Tobacco smoking status NHIS Unknown if ever smoked [facility] Start: 03-10-2019 None [facility] Start: 10-01-2020 Cigarettes [facility] Start: 1995 Sex Assigned At Female [facility] Start: 08-24-2022 End: 02-07-2025 Tobacco smoking status NHIS Smokes tobacco daily [facility] History of tobacco use Cigarette Smoker C [facility] Start: 08-24-2022 End: 06-26-2024 Tobacco use and exposure Smokeless tobacco non-user [facility] Start: 08-24-2022 End: 06-17-2024 Alcohol intake Current drinker of alcohol (finding) [facility] Start: 08-24-2022 Alcohol Comment [facility] Start: 1995 Sex Assigned At Not on file C [facility] Start: 11-19-2022 End: 04-03-2024 History of Social function [facility] Start: 11-19-2022 End: 04-03-2024 Tobacco use panel [facility] Start: 08-24-2022 National Score (1-100), lower number is lower risk 91 [facility] Start: 06-26-2024 Tobacco smoking stat us NHIS Ex-smoker [facility] History of tobacco use Current smoker [facility] Start: 06-26-2024 End: 01-25-2025 Alcoholic beverage intake Ex-drinker (finding) [facility] Start: 05-23-2024 [facility] Goals Date Patient Goal Desired Activity /State Personal health goal Clinical Notes 05-12-2021 to 02-17-2025 Note Date & Type Note Facility 02-17-2025 Note HNO ID: [id number] Author: GRISEL SHEN MD Service: ? Author Type: Physician Type: Progress Notes Filed: 02/17/2025 19:08 Note Text: EARLY VISIT [place] Tata Granger is a 29 year old here for 1.5 week visit. Delivery Summary: 02/07/25 F Zharvia PP htn. Taking labetalol TID. Does not have a cuff available. No HOGAN no edema.. Feels good. Did not take her dose this am. Would like to check her hemoglobin. Still eating a lot of ice ROS: General: Denies any fever or chills Hypertension Screening: Headache? No. Visual Changes? No Epigastric Pain? No Increased Swelling? No Taking any BP medications at home? Yes- labetalol 200 mg daily If applicable, monitoring BP at home? (If Yes, include results) No Mood: normal Depression: denies symptoms of depression. OB Depression and Anxiety Screening- This Encounter Feeling down, depressed, or hopeless: Not at all Little interest or pleasure in doing things: Not at all Feeling nervous, anxious, or on edge Not at all Not being able to stop or control worrying Not at all Anxiety Pre-Screening Total (If >/= 3 additional questions will be reviewed) 0 Feeding: Breast feeding problems: None Bladder: No dysuria, gross hematuria, urinary frequency, urinary urgency, or incontinence Bowel symptoms: Negative for abdominal discomfort, blood in stools or black stools and change in bowel habits Abdomen: N/A Bleeding: light flow Bottom and Perineum: No issues Sleep: no sleep concerns, feels rested Leigh since delivery: Not resumed Emotional support: Yes Exercise: N/A Other issues: None SENSITIVE EXAM: Sensitive exam not performed. PHYSICAL EXAMINATION: BP 134/84 Wt 63.5 kg (140 lb) LMP 05/09/2024 (Approximate) Yes BMI 24.03 kg/m? General: pleasant,female in no apparent distress, AANDO x 3. Skin warm and intact. Breast: Deferred Abdomen: Deferred /Incision: N/A Pelvic: Deferred Bimanual: Deferred ASSESSMENT AND PLAN: 29 year old status post with normal course. Contraception plan: not applicable. Reinforced 6-week pelvic rest. Encouraged condom usage should patient deviate. Education: resources provided - see MA/RN note Follow up: Return to Clinic for 6 week visit and as needed Grisel Shen MD [facility] 02-10-2025 Discharge summary Note Date/Time February 10, 2025 8:47am [facility] Medical Records Department [address] [place] [address] Discharge Summary 02/10/25 0837 MR#: [id number] Acct: [id number] Name: MARLON GRANGER Rep #:[id number] : 1995 29 From: Tata Cline CNM PCP: Dr. Angeline Valderrama MD Status :ADM IN Location: [facility] [id number] Providers Date of Admission: 02/07/25 Primary Care Physician: Dr. Angeline Valderrama MD Reason For Visit: LABOR Diagnosis Discharge Diagnosis (1) Lactating mother: Status: Acute Code(s): Z39.1 - Encounter for care and examination of lactating mother (2) First degree perineal laceration: Status: Acute Code(s): O70.0 - First degree perineal laceration during delivery (3) Vaginal delivery: Status: Acute Code(s): O80 - Encounter for full-term uncomplicated delivery (4) Elevated blood pressure reading with diagnosis of hypertension: Status: Acute Code(s): I10 - Essential (primary) hypertension (5) Care and examination of lactating mother: Status: Acute Code(s): Z39.1 - Encounter for care and examination of lactating mother Plan PPD 2 BP- stable while taking Labetalol 200 mg PO TID No severe ranges- 118/76 123/84 125/94 Patient asymptomatic without difficulty Desires discharge home later today RX sent Medications at Discharge Home Medications vit no.95-ferrous fumarate 28 mg-folic acid 800 mcg tablet () 1tab PO DAILY 02/07/25 acetaminophen 500 mg tablet 1,000 mg (2 x 500 mg) PO Q6H PRN PRN Pain 1-10 Or Fever #0 tabs 02/09/25 ibuprofen 600 mg tablet 600 mg PO Q6H PRN PRN Pain Score 1-10 #0 tabs 02/09/25 labetalol 200 mg tablet 200 mg PO Q12 #60 tabs 02/09/25 labetalol 200 mg tablet 200 mg PO TID #90 tabs 02/10/25 Hospital Course Operations None Procedures None Summary of Care Provided Minutes Spent on Discharge: 15 Hospital Course: Patient had vaginal delivery. Hospital course was uneventful. Physical Exam Narrative Patient seen at bedside. Denies pain. Ambulating and voiding without difficulty.Lochia decreased. Desires discharge home today. Const alert and oriented x3 General Appearance: Negative for in distress HEENT normocephalic Eyes General Eye: normal appearance of both eyes Neck General: normal visual inspection Chest Chest: symmetrical chest wall rise Resp normal respiratory effort and normal air movement Effort and Inspection: symmetric chest movement; Negative for tachypneic Auscultation: clear to auscultation bilaterally Cardio regular rate and regular rhythm Peripheral Pulses: pulses 2+ throughout GI normal to inspection, nondistended, normoactive bowel sounds Narrative: Ice to perineum OB / External & Speculum: vaginal bleeding and other Lochia decreasing Uterus Palpation: uterus fundus firm (Below U) Extremity normal to inspection, full ROM and normal capillary refill Skin no rashes or lesions noted Neuro oriented x3, CN's II-XII intact bilaterally and gait normal Psych mental status grossly normal, thought process normal and activity/motor behaviornormal Weight / BMI Weight Weight: 159 lb 13.362 oz Body Mass Index (BMI) 27.4 ABG / Lab / Microbiology Data 02/07/25 12:30 02/07/25 16:40 D/C Instructions Discharge Activity: Return to Normal Activity, No Restrictions, May Drive, May Shower and May Take a Tub Bath (Warm water only. No bath salts, soaps, bubbles) May resume sexual activity in: 6-8 weeks Weight Bearing Status: Weight bearing as tolerated Call your doctor if you observe: Fever of 101 or Higher, Inability to urinate, Using more than 1 pad per hour, Shortness of breath, Dizziness, Chest pain, Calfdiscomfort and Uncontrolled pain DC O2, CPAP, BIPAP Needs Home O2 Discharge instructions: No Additional Instructions: Call office if BP >160/110 or symptomatic- headache, vision changes, SOB, severe swelling DO NOT TAKE BP Medications if BP <90/60 Please Follow Up With: [facility] OBGYN When: NEXT WEEK FOR BP CHECK Meaningful Use Info Meaningful Use Meaningful Use Diagnoses (Choose all that apply): None applicable Discharge Plan Admission Admit Date/Time: 02/07/25 12:18 Primary Reason for Your Visit: Vaginal Delivery Attending Provider: Wendy Le Primary Care Provider: Angeline Valderrama Discharge Orders/Prescriptions Prescriptions: New acetaminophen 500 mg Tablet 1,000 mg PO Q6H PRN PRN (Reason: Pain 1-10 Or Fever) Qty: 0 0RF ibuprofen 600 mg Tablet 600 mg PO Q6H PRN PRN (Reason: Pain Score 1-10) Qty: 0 0RF labetalol 200 mg Tablet 200 mg PO Q12 Qty: 60 0RF labetalol 200 mg Tablet 200 mg PO TID Qty: 90 0RF Continued PNV no.95-ferrous fumarate-FA [] 28 mg iron- 800 mcg tablet 1 tab PO DAILY Referrals / Follow Up: Angeline Valderrama MD [Primary Care Provider, Family Practice] Disposition Disposition (needs filled in before D/C Order can be placed): Home, Self Care 02/10/25 0847 <Electronically signed by Tata Cline CNM> Cosigner Signature (if applicable): CC: FRANKIE Cline; Dr. Angeline Valderrama MD~ Signed [facility] Work Phone: 1(475) 409-428310-01-2025 Discharge summary [facility] Medical Records Department [address] [place] [address] Discharge Summary 02/10/25 0837 MR#: [id number] Acct: [id number] Name: MARLON GRANGER Rep #:[id number] : 1995 29 From: Tata Cline CNM PCP: Dr. Angeline Valderrama MD Status :ADM IN Location: [place] [address] Providers Date of Admission: 02/07/25 Primary Care Physician: Dr. Angeline Valderrama MD Reason For Visit: LABOR Diagnosis Discharge Diagnosis (1) Lactating mother: Status: Acute Code(s): Z39.1 - Encounter for care and examination of lactating mother (2) First degree perineal laceration: Status: Acute Code(s): O70.0 - First degree perineal laceration during delivery (3) Vaginal delivery: Status: Acute Code(s): O80 - Encounter for full-term uncomplicated delivery (4) Elevated blood pressure reading with diagnosis of hypertension: Status: Acute Code(s): I10 - Essential (primary) hypertension (5) Care and examination of lactating mother: Status: Acute Code(s): Z39.1 - Encounter for care and examination of lactating mother Plan PPD 2 BP- stable while taking Labetalol 200 mg PO TID No severe ranges- 118/76 123/84 125/94 Patient asymptomatic without difficulty Desires discharge home later today RX sent Medications at Discharge Home Medications vit no.95-ferrous fumarate 28 mg-folic acid 800 mcg tablet () 1tab PO DAILY 02/07/25 acetaminophen 500 mg tablet 1,000 mg (2 x 500 mg) PO Q6H PRN PRN Pain 1-10 Or Fever #0 tabs 02/09/25 ibuprofen 600 mg tablet 600 mg PO Q6H PRN PRN Pain Score 1-10 #0 tabs 02/09/25 labetalol 200 mg tablet 200 mg PO Q12 #60 tabs 02/09/25 labetalol 200 mg tablet 200 mg PO TID #90 tabs 02/10/25 Hospital Course Operations None Procedures None Summary of Care Provided Minutes Spent on Discharge: 15 Hospital Course: Patient had vaginal delivery. Hospital course was uneventful. Physical Exam Narrative Patient seen at bedside. Denies pain. Ambulating and voiding without difficulty.Lochia decreased. Desires discharge home today. Const alert and oriented x3 General Appearance: Negative for in distress HEENT normocephalic Eyes General Eye: normal appearance of both eyes Neck General: normal visual inspection Chest Chest: symmetrical chest wall rise Resp normal respiratory effort and normal air movement Effort and Inspection: symmetric chest movement; Negative for tachypneic Auscultation: clear to auscultation bilaterally Cardio regular rate and regular rhythm Peripheral Pulses: pulses 2+ throughout GI normal to inspection, nondistended, normoactive bowel sounds Narrative: Ice to perineum OB / External & Speculum: vaginal bleeding and other Lochia decreasing Uterus Palpation: uterus fundus firm (Below U) Extremity normal to inspection, full ROM and normal capillary refill Skin no rashes or lesions noted Neuro oriented x3, CN's II-XII intact bilaterally and gait normal Psych mental status grossly normal, thought process normal and activity/motor behaviornormal Weight / BMI Weight Weight: 159 lb 13.362 oz Body Mass Index (BMI) 27.4 ABG / Lab / Microbiology Data 02/07/25 12:30 02/07/25 16:40 D/C Instructions Discharge Activity: Return to Normal Activity, No Restrictions, May Drive, May Shower and May Take a Tub Bath (Warm water only. No bath salts, soaps, bubbles) May resume sexual activity in: 6-8 weeks Weight Bearing Status: Weight bearing as tolerated Call your doctor if you observe: Fever of 101 or Higher, Inability to urinate, Using more than 1 pad per hour, Shortness of breath, Dizziness, Chest pain, Calfdiscomfort and Uncontrolled pain DC O2, CPAP, BIPAP Needs Home O2 Discharge instructions: No Additional Instructions: Call office if BP >160/110 or symptomatic- headache, vision changes, SOB, severe swelling DO NOT TAKE BP Medications if BP <90/60 Please Follow Up With: [facility] Amrik CANO When: NEXT WEEK FOR BP CHECK Meaningful Use Info Meaningful Use Meaningful Use Diagnoses (Choose all that apply): None applicable Discharge Plan Admission Admit Date/Time: 02/07/25 12:18 Primary Reason for Your Visit: Vaginal Delivery Attending Provider: Wendy Le Primary Care Provider: Angeline Valderrama Discharge Orders/Prescriptions Prescriptions: New acetaminophen 500 mg Tablet 1,000 mg PO Q6H PRN PRN (Reason: Pain 1-10 Or Fever) Qty: 0 0RF ibuprofen 600 mg Tablet 600 mg PO Q6H PRN PRN (Reason: Pain Score 1-10) Qty: 0 0RF labetalol 200 mg Tablet 200 mg PO Q12 Qty: 60 0RF labetalol 200 mg Tablet 200 mg PO TID Qty: 90 0RF Continued PNV no.95-ferrous fumarate-FA [] 28 mg iron- 800 mcg tablet 1 tab PO DAILY Referrals / Follow Up: Angeline Valderrama MD [Primary Care Provider, Family Practice] Disposition Disposition (needs filled in before D/C Order can be placed): Home, Self Care 02/10/25 0847 Cosigner Signature (if applicable): CC: FRANKIE Cline; Dr. Angeline Valderrama MD~ Signed [facility]10-01-2025 [facility] Medical Records Department [address] [place] [address] Discharge Summary 02/10/25 0837 MR#: [id number] Acct: [id number] Name: MARLON GRANGER Rep #: [id number] : 1995 29 From: Tata Cline CNM PCP: Dr. Angeline Valderrama MD Status:ADM IN Location: [id number] Providers Date of Admission: 02/07/25 Primary Care Physician: Dr. Angeline Valderrama MD Reason For Visit: LABOR Diagnosis Discharge Diagnosis (1) Lactating mother: Status: Acute Code(s): Z39.1 - Encounter for care and examination of lactating mother (2) First degree perineal laceration: Status: Acute Code(s): O70.0 - First degree perineal laceration during delivery (3) Vaginal delivery: Status: Acute Code(s): O80 - Encounter for full-term uncomplicated delivery (4) Elevated blood pressure reading with diagnosis of hypertension: Status: Acute Code(s): I10 - Essential (primary) hypertension (5) Care and examination of lactating mother: Status: Acute Code(s): Z39.1 - Encounter for care and examination of lactating mother Plan PPD 2 BP- stable while taking Labetalol 200 mg PO TID No severe ranges- 118/76 123/84 125/94 Patient asymptomatic without difficulty Desires discharge home later today RX sent Medications at Discharge Home Medications vit no.95-ferrous fumarate 28 mg-folic acid 800 mcg tablet () 1 tab PO DAILY 02/07/25 acetaminophen 500 mg tablet 1,000 mg (2 x 500 mg) PO Q6H PRN PRN Pain 1-10 Or Fever #0 tabs 02/09/25 ibuprofen 600 mg tablet 600 mg PO Q6H PRN PRN Pain Score 1-10 #0 tabs 02/09/25 labetalol 200 mg tablet 200 mg PO Q12 #60 tabs 02/09/25 labetalol 200 mg tablet 200 mg PO TID #90 tabs 02/10/25 Hospital Course Operations None Procedures None Summary of Care Provided Minutes Spent on Discharge: 15 Hospital Course: Patient had vaginal delivery. Hospital course was uneventful. Physical Exam Narrative Patient seen at bedside. Denies pain. Ambulating and voiding without difficulty. Lochia decreased. Desires discharge home today. Const alert and oriented x3 General Appearance: Negative for in distress HEENT normocephalic Eyes General Eye: normal appearance of both eyes Neck General: normal visual inspection Chest Chest: symmetrical chest wall rise Resp normal respiratory effort and normal air movement Effort and Inspection: symmetric chest movement; Negative for tachypneic Auscultation: clear to auscultation bilaterally Cardio regular rate and regular rhythm Peripheral Pulses: pulses 2+ throughout GI normal to inspection, nondistended, normoactive bowel sounds Narrative: Ice to perineum OB / External Speculum: vaginal bleeding and other Lochia decreasing Uterus Palpation: uterus fundus firm (Below U) Extremity normal to inspection, full ROM and normal capillary refill Skin no rashes or lesions noted Neuro oriented x3, CN's II-XII intact bilaterally and gait normal Psych mental status grossly normal, thought process normal and activity/motor behavior normal Weight / BMI Weight Weight: 159 lb 13.362 oz Body Mass Index (BMI) 27.4 ABG / Lab / Microbiology Data 02/07/25 12:30 02/07/25 16:40 D/C Instructions Discharge Activity: Return to Normal Activity, No Restrictions, May Drive, May Shower and May Take a Tub Bath (Warm water only. No bath salts, soaps, bubbles) May resume sexual activity in: 6-8 weeks Weight Bearing Status: Weight bearing as tolerated Call your doctor if you observe: Fever of 101 or Higher, Inability to urinate, Using more than 1 pad per hour, Shortness of breath, Dizziness, Chest pain, Calf discomfort and Uncontrolled pain DC O2, CPAP, BIPAP Needs Home O2 Discharge instructions: No Additional Instructions: Call office if BP >160/110 or symptomatic- headache, vision changes, SOB, severe swelling DO NOT TAKE BP Medications if BP <90/60 Please Follow Up With: [facility] OBGYN When: NEXT WEEK FOR BP CHECK Meaningful Use Info Meaningful Use Meaningful Use Diagnoses (Choose all that apply): None applicable Discharge Plan Admission Admit Date/Time: 02/07/25 12:18 Primary Reason for Your Visit: Vaginal Delivery Attending Provider: Wendy Le Primary Care Provider: Angeline Valderrama Discharge Orders/Prescriptions Prescriptions: New acetaminophen 500 mg Tablet 1,000 mg PO Q6H PRN PRN (Reason: Pain 1-10 Or Fever) Qty: 0 0RF ibuprofen 600 mg Tablet 600 mg PO Q6H PRN PRN (Reason: Pain Score 1-10) Qty: 0 0RF labetalol 200 mg Tablet 200 mg PO Q12 Qty: 60 0RF labetalol 200 mg Tablet 200 mg PO TID Qty: 90 0RF Continued PNV no.95-ferrous fumarate-FA [] 28 mg iron- 800 mcg tablet 1 tab PO DAILY Referrals / Follow Up: Delfin Valderrama (more content not included)...[facility] 02-09-2025 Progress note Author Wendy Le [facility] Note Date/Time February 09, 2025 5:01pm [facility] Medical Records Department [address] [place] [address] Progress Note - OBGYN 02/09/25 0900 MR#: [id number] Acct: [id number] Name: MARLON GRANGER Rep #:[id number] : 1995 29 From: Wendy BENNETT PCP: Dr. Angeline Valderrama MD Status :ADM IN Location: [id number] Subjective Subjective Doing well per patient and nursing staff. Ambulating and taking PO without difficulty. Voiding and passing flatus. Pain controlled. , services for assistance. Denies headache, visual changes, chest pain, shortness of breath, leg pain or increased bleeding. Lochia normal. Objective Data Objective Data Vital Signs: Vital Signs Temp Pulse Resp BP Pulse Ox O2 Del Method 98.0 F 59 L 16 141/90 H 99 Room Air 02/09/25 02:19 02/09/25 02:19 02/09/25 02:19 02/09/25 02:19 02/09/25 02:19 02/09/25 02:19 Oxygen Delivery Method Room Air Weight: 159 lb 13.362 oz Body Mass Index (BMI) 27.4 Intake & Output: Intake and Output for Last 24 Hours 02/07/25 02/08/25 02/09/25 23:59 23:59 23:59 Intake Total 550 / 550 Output Total 1200 / 1200 Balance -650 / -650 Lab / Micro Data 02/07/25 12:30 02/07/25 16:40 ROS Constitutional Constitutional: Reports systems reviewed and no addt'l complaints, except as documented; Denies headache(s) Eyes Eyes: Denies acute decrease in peripheral vision, blurry vision or change in vision ENT HEENT: Reports systems reviewed and no addt'l complaints, except as documented Cardiovascular Cardiovascular: Denies chest pain or dizziness Respiratory/Chest Respiratory/Chest: Denies cough, dyspnea, dyspnea on exertion, shortness of breath at rest or shortness of breath with exertion Gastrointestinal Gastrointestinal: Denies abdominal pain, diarrhea, nausea or vomiting Genitourinary Genitourinary: Denies abdominal discomfort Musculoskeletal Musculoskeletal: Denies limited range of motion Integumentary Integumentary: Reports systems reviewed and no addt'l complaints, except as documented Neurologic Neurologic: Reports systems reviewed and no addt'l complaints, except as documented Psychiatric Psychiatric: Reports systems reviewed and no addt'l complaints, except as documented Endocrine Endocrinology: Reports systems reviewed and no addt'l complaints, except as documented Hematologic/Lymphatic Hematologic/Lymphatic: Reports systems reviewed and no addt'l complaints, exceptas documented Allergic/Immunologic Allergic/Immunologic: Reports systems reviewed and no addt'l complaints, except as documented Physical Exam Const alert and oriented x3 General Appearance: cooperative Orientation / Consciousness: awake, oriented to person, oriented to place and oriented to time Exam Limitations: no limitations HEENT normocephalic Head and Scalp: normal to inspection, normocephalic and atraumatic Face and Sinus: normal facial exam Eyes General Eye: normal appearance of both eyes Neck full ROM Chest Chest: symmetrical chest wall rise Resp normal respiratory effort and normal air movement Auscultation: clear to auscultation bilaterally Cardio regular rate, regular rhythm, S1 normal heart sound, S2 normal heart sound, no murmurs, no rub, no gallops and no clicks GI normal to inspection, nondistended, normoactive bowel sounds and non-tender GI Narrative: Fundus firm 2 below U appearance of the vagina normal Narrative: Normal lochia rubra Bladder / Kidney Exam: no CVA tenderness Back/Spine normal ROM Extremity normal to inspection and full ROM Skin no rashes or lesions noted Neuro oriented x3, CN's II-XII intact bilaterally and moves all extremities Sensorium / Orientation: awake, alert and oriented to person Motor Exam: clonus absent Deep Tendon Reflexes: Rt Patellar (L4): 2+ and Lt Patellar (L4): 2+ Assessment & Plan (1) Lactating mother: (2) First degree perineal laceration: (3) Vaginal delivery: PLAN: Plan 1) Routine PPD#2 2) BP 140s/90s. Labetalol 200mg PO BID. 3) I&O 4) Pain management 5) services PRN 6) Planning D/C home tomorrow 02/09/25 1701 <Electronically signed by Wendy Le CNM> Cosigner Signature (if applicable): CC: ~ Signed [facility] Work Phone: 1(200) 892-689909-30-2025 Progress note [facility] Medical Records Department [address] [place] [address] Progress Note - OBGYN 02/09/25 0900 MR#: [id number] Acct: [id number] Name: MARLON GRANGER Rep #:[id number] : 1995 29 From: Wendy BENNTET PCP: Dr. Angeline Valderrama MD Status :ADM IN [facility] Subjective Doing well per patient and nursing staff. Ambulating and taking PO without difficulty. Voiding and passing flatus. Pain controlled. , services for assistance. Denies headache, visual changes, chest pain, shortness of breath, leg pain or increased bleeding. Lochia normal. Objective Data Objective Data Vital Signs: Vital Signs Temp Pulse Resp BP Pulse Ox O2 Del Method 98.0 F 59 L 16 141/90 H 99 Room Air 02/09/25 02:19 02/09/25 02:19 02/09/25 02:19 02/09/25 02:19 02/09/25 02:19 02/09/25 02:19 Oxygen Delivery Method Room Air Weight: 159 lb 13.362 oz Body Mass Index (BMI) 27.4 Intake & Output: Intake and Output for Last 24 Hours 02/07/25 02/08/25 02/09/25 23:59 23:59 23:59 Intake Total 550 / 550 Output Total 1200 / 1200 Balance -650 / -650 Lab / Micro Data 02/07/25 12:30 02/07/25 16:40 ROS Constitutional Constitutional: Reports systems reviewed and no addt'l complaints, except as documented; Denies headache(s) Eyes Eyes: Denies acute decrease in peripheral vision, blurry vision or change in vision ENT HEENT: Reports systems reviewed and no addt'l complaints, except as documented Cardiovascular Cardiovascular: Denies chest pain or dizziness Respiratory/Chest Respiratory/Chest: Denies cough, dyspnea, dyspnea on exertion, shortness of breath at rest or shortness of breath with exertion Gastrointestinal Gastrointestinal: Denies abdominal pain, diarrhea, nausea or vomiting Genitourinary Genitourinary: Denies abdominal discomfort Musculoskeletal Musculoskeletal: Denies limited range of motion Integumentary Integumentary: Reports systems reviewed and no addt'l complaints, except as documented Neurologic Neurologic: Reports systems reviewed and no addt'l complaints, except as documented Psychiatric Psychiatric: Reports systems reviewed and no addt'l complaints, except as documented Endocrine Endocrinology: Reports systems reviewed and no addt'l complaints, except as documented Hematologic/Lymphatic Hematologic/Lymphatic: Reports systems reviewed and no addt'l complaints, exceptas documented Allergic/Immunologic Allergic/Immunologic: Reports systems reviewed and no addt'l complaints, except as documented Physical Exam Const alert and oriented x3 General Appearance: cooperative Orientation / Consciousness: awake, oriented to person, oriented to place and oriented to time Exam Limitations: no limitations HEENT normocephalic Head and Scalp: normal to inspection, normocephalic and atraumatic Face and Sinus: normal facial exam Eyes General Eye: normal appearance of both eyes Neck full ROM Chest Chest: symmetrical chest wall rise Resp normal respiratory effort and normal air movement Auscultation: clear to auscultation bilaterally Cardio regular rate, regular rhythm, S1 normal heart sound, S2 normal heart sound, no murmurs, no rub, no gallops and no clicks GI normal to inspection, nondistended, normoactive bowel sounds and non-tender GI Narrative: Fundus firm 2 below U appearance of the vagina normal Narrative: Normal lochia rubra Bladder / Kidney Exam: no CVA tenderness Back/Spine normal ROM Extremity normal to inspection and full ROM Skin no rashes or lesions noted Neuro oriented x3, CN's II-XII intact bilaterally and moves all extremities Sensorium / Orientation: awake, alert and oriented to person Motor Exam: clonus absent Deep Tendon Reflexes: Rt Patellar (L4): 2+ and Lt Patellar (L4): 2+ Assessment & Plan (1) Lactating mother: (2) First degree perineal laceration: (3) Vaginal delivery: PLAN: Plan 1) Routine PPD#2 2) BP 140s/90s. Labetalol 200mg PO BID. 3) I&O 4) Pain management 5) services PRN 6) Planning D/C home tomorrow 02/09/25 1701 Cosigner Signature (if applicable): CC: ~ Signed [facility]09-29-2025 Progress note Author Jose Soto [facility] Note Date/Time February 08, 2025 8:20am [facility] Medical Records Department [address] [place] [address] Progress Note - OBGYN 02/08/25 0814 MR#: [id number] Acct: [id number] Name: MARLON GRANGER Rep #:[id number] : 1995 29 From: Jose Soto DO PCP: Dr. Angeline Valderrama MD Status :ADM IN Location: [id number] Subjective Subjective Patient is doing well. Pain controlled. Lochia normal. She is breast-feeding without complaints. She is ambulating voiding without difficulty. She denies headache, vision changes, chest pain, shortness of breath, lightheadedness, leg pain. Objective Data Objective Data Vital Signs: Vital Signs Temp Pulse Resp BP Pulse Ox O2 Del Method 97.7 F L 91 16 121/84 H 97 Room Air 02/08/25 07:35 02/08/25 07:35 02/08/25 07:35 02/08/25 07:35 02/08/25 07:35 02/08/25 07:35 Oxygen Delivery Method Room Air Weight: 159 lb 13.362 oz Body Mass Index (BMI) 27.4 Intake & Output: Intake and Output for Last 24 Hours 02/06/25 02/07/25 02/08/25 23:59 23:59 23:59 Intake Total 550 / 550 Output Total 1200 / 1200 Balance -650 / -650 Lab / Micro Data 02/07/25 12:30 02/07/25 16:40 Labs: Laboratory Results - last 24 hr 02/07/25 12:30: WBC 17.3 H, RBC 4.87, Hgb 12.7, Hct 38.4, MCV 78.9 L, MCH 26.1 L, MCHC 33.1, RDW Std Deviation 41.3, RDW Coeff of Jose 14.5, Plt Count 408, MPV 10.2, Immature Gran % (Auto) 1.200 H, Neut % (Auto) 72.6 H, Lymph % (Auto) 18.3 L, Sequoyah % (Auto) 6.6, Eos % (Auto) 0.8, Baso % (Auto) 0.5, Absolute Neuts (auto)12.6 H, Absolute Lymphs (auto) 3.17, Nucleated RBC % 0, Syphilis Total Ab Nonreactive, Blood Type B NEGATIVE, Antibody Screen NEGATIVE 02/07/25 16:40: Sodium 137, Potassium 3.9, Chloride 107, Carbon Dioxide 20.3 L, Anion Gap 10, BUN 7, Creatinine 0.82, Estim Creat Clear Calc 98.79, Est GFR (MDRD) Non-Af 100, BUN/Creatinine Ratio 8.0 L, Glucose 100 H, Calcium 8.6, TotalBilirubin 0.26, AST 29, ALT 10, Alkaline Phosphatase 210 H, Total Protein 6.3, Albumin 3.3 L, Globulin 3.0, Albumin/Globulin Ratio 1.1 Physical Exam Const alert and no apparent distress General Appearance: comfortable HEENT normocephalic Resp normal respiratory effort GI soft to palpation, non-tender and non-distended GI Narrative: FF@U-2 Assessment & Plan (1) Vaginal delivery: PLAN: PPD#1 s/p . Doing well . Routine care. Dispo: Anticipate discharge tomorrow. (2) First degree perineal laceration: (3) Lactating mother: 02/08/25 0820 <Electronically signed by Jose Soto DO> Cosigner Signature (if applicable): CC: ~ Signed [facility] Work Phone: 1(304) 210-828709-29-2025 NoteHNO ID: [id number] Author: NANCY HAILE RN Service: ? Author Type: Registered Nurse Type: Progress Notes Filed: 02/08/2025 08:42 Note Text: Patient delivered via by [facility] on 02/07/25 at [facility]. See OB history. [facility] Progress note [facility] Medical Records Department [address] [place] [address] Progress Note - OBGYN 02/08/25 0814 MR#: [id number] Acct: [id number] Name: MARLON GRANGER Rep #:[id number] : 1995 29 From: Jose Soto DO PCP: Dr. Angeline Valderrama MD Status :ADM IN Location: [place] [address] Subjective Subjective Patient is doing well. Pain controlled. Lochia normal. She is breast-feeding without complaints. She is ambulating voiding without difficulty. She denies headache, vision changes, chest pain, shortness of breath, lightheadedness, leg pain. Objective Data Objective Data Vital Signs: Vital Signs Temp Pulse Resp BP Pulse Ox O2 Del Method 97.7 F L 91 16 121/84 H 97 Room Air 02/08/25 07:35 02/08/25 07:35 02/08/25 07:35 02/08/25 07:35 02/08/25 07:35 02/08/25 07:35 Oxygen Delivery Method Room Air Weight: 159 lb 13.362 oz Body Mass Index (BMI) 27.4 Intake & Output: Intake and Output for Last 24 Hours 09/02/07/25 02/08/25 23:59 23:59 23:59 Intake Total 550 / 550 Output Total 1200 / 1200 Balance -650 / -650 Lab / Micro Data 02/07/25 12:30 02/07/25 16:40 Labs: Laboratory Results - last 24 hr 02/07/25 12:30: WBC 17.3 H, RBC 4.87, Hgb 12.7, Hct 38.4, MCV 78.9 L, MCH 26.1 L, MCHC 33.1, RDW Std Deviation 41.3, RDW Coeff of Jose 14.5, Plt Count 408, MPV 10.2, Immature Gran % (Auto) 1.200 H, Neut % (Auto) 72.6 H, Lymph % (Auto) 18.3 L, Sequoyah % (Auto) 6.6, Eos % (Auto) 0.8, Baso % (Auto) 0.5, Absolute Neuts (auto)12.6 H, Absolute Lymphs (auto) 3.17, Nucleated RBC % 0, Syphilis Total Ab Nonreactive, Blood Type B NEGATIVE, Antibody Screen NEGATIVE 02/07/25 16:40: Sodium 137, Potassium 3.9, Chloride 107, Carbon Dioxide 20.3 L, Anion Gap 10, BUN 7, Creatinine 0.82, Estim Creat Clear Calc 98.79, Est GFR (MDRD) Non-Af 100, BUN/Creatinine Ratio 8.0L, Glucose 100 H, Calcium 8.6, TotalBilirubin 0.26, AST 29, ALT 10, Alkaline Phosphatase 210 H, Total Protein 6.3, Albumin 3.3 L, Globulin 3.0, Albumin/Globulin Ratio 1.1 Physical Exam Const alert and no apparent distress General Appearance: comfortable HEENT normocephalic Resp normal respiratory effort GI soft to palpation, non-tender and non-distended GI Narrative: FF@U-2 Assessment & Plan (1) Vaginal delivery: PLAN: PPD#1 s/p . Doing well . Routine care. Dispo: Anticipate discharge tomorrow. (2) First degree perineal laceration: (3) Lactating mother: 02/08/25 0820 Cosigner Signature (if applicable): CC: ~ Signed [facility]09-28-2025 Consult note Author Peña Lemos [facility] Note Date/Time February 07, 2025 1:05pm [facility] Medical Records Department [address] [place] [address] Pharmacokinetic/Renal -Consult 02/07/251254 MR#: [id number] Acct: [id number] Name: MARLON GRANGER Rep #:[id number] : 1995 29 From: Peña Lemos PCP: Dr. Angeline Valderrama MD Status :ADM IN Y Location: [place] [address] Consult Antibiotic Management Pharmacy has been consulted to manage selected antibiotic: Vancomycin Type of Intervention Type of Consult: New start Suspected Infection Suspected Infection: Other (WP PPX) Prior Doses of Antibiotics Prior Doses of Antibiotics Received/Current Regimen: Vancomycin 1500 mg Q8H Dosing Weight Weight used for dosin.5 kg Goal Trough Goal Trough: 10-15 mcg/mL Pharmacy Plan for Drug Dosing Pharmacy Plan for Drug Dosing: Vancomycin 1500 mg Q8H, per RN likely close to delivery, will hold off on ordering trough for now Pharmacy Service will continue to monitor and adjust dosing as required. 02/07/25 1259 <Electronically signed by Peña figueredo> Date _ Peña Lemos 02/07/25 1305 <Electronically signed by Wendy Le CNM> Cosigner Signature (if applicable): Date Wendy Le CNM CC: ~ Signed [facility] Work Phone: 1(610) 278-483209-28-2025 History and physical note Author Wendy Le [facility] Note Date/Time February 07, 2025 1:05pm [facility] Medical Records Department [address] [place] [address] H&P Exam - FOLLOW UP MANAGER 02/07/251254 MR#: [id number] Acct: [id number] Name: MARLON GRANGER ANA RICHARD Rep #:[id number] : 1995 29 From: Wendy BENNETT PCP: Dr. Angeline Valderrama MD Status :ADM IN Location: [id number] HPI - General General Date of Admission: 02/07/25 HPI Narrative MARLON GRANGER is a 29 F who presents at 39w1d with HERBER: 02/13/25. Presented with contractions increasing in strength and frequency. Upon triage went from 3cm to 6cm and admitted for labor. Maternal Data Information HERBER Calculator Estimated Delivery Date Method Current WG Current Estimate 02/13/25 Manual 39w 1d PFSH PFSH Home Medications ?Medication ?Instructions ?Recorded ?Last Taken ?Type vit no.95-ferrous 1 tab PO DAILY 02/06/25 21:00 History fumarate 28 mg-folic acid 800 mcg 1 TA B tablet () Allergy/AdvReac Type Severity Reaction Status Date / Time Penicillins Allergy Unknown Verified 02/07/25 12:43 Social History Smoking Status: Current every day smoker tobacco type: e-cigarettes History 2 Elective abortions Hx Para 1 Spontaneous abortions Hx # Term Pregnancies Ectopic pregnancies Hx # Pregnancies Multiple births # of living children NST FHR Rate Baby A Baseline: 130 Variability:: Moderate Accelerations:: 15 x 15 Decelerations:: Variable FHR Category:: Category II Uterine Activity:: every 2 minutes, strong ROS Constitutional Constitutional: Reports systems reviewed and no addt'l complaints, except as documented; Denies headache(s) Eyes Eyes: Denies acute decrease in peripheral vision, blurry vision or change in vision ENT HEENT: Reports systems reviewed and no addt'l complaints, except as documented Cardiovascular Cardiovascular: Denies chest pain or dizziness Respiratory/Chest Respiratory/Chest: Denies cough, dyspnea, dyspnea on exertion, shortness of breath at rest or shortness of breath with exertion Gastrointestinal Gastrointestinal: Denies abdominal pain, diarrhea, nausea or vomiting Genitourinary Genitourinary: Denies abdominal discomfort Musculoskeletal Musculoskeletal: Denies limited range of motion Integumentary Integumentary: Reports systems reviewed and no addt'l complaints, except as documented Neurologic Neurologic: Reports systems reviewed and no addt'l complaints, except as documented Psychiatric Psychiatric: Reports systems reviewed and no addt'l complaints, except as documented Endocrine Endocrinology: Reports systems reviewed and no addt'l complaints, except as documented Hematologic/Lymphatic Hematologic/Lymphatic: Reports systems reviewed and no addt'l complaints, exceptas documented Allergic/Immunologic Allergic/Immunologic: Reports systems reviewed and no addt'l complaints, except as documented Vital Signs Vital Signs Vital Signs: 02/07/25 12:20 02/07/25 12:20 02/07/25 12:36 Pulse Rate 117 H Blood Pressure 155/89 H 142/93 H BP Systolic 155 142 BP Diastolic 89 93 Pulse Ox 02/07/25 12:36 02/07/25 12:38 02/07/25 12:38 Pulse Rate 134 H 131 H Blood Pressure BP Systolic BP Diastolic Pulse Ox 97 Weight Weight: 159 lb 13.362 oz Body Mass Index (BMI) 27.4 Physical Exam Const alert and oriented x3 General Appearance: cooperative Orientation / Consciousness: awake, oriented to person, oriented to place and oriented to time Exam Limitations: no limitations HEENT normocephalic Head and Scalp: normal to inspection, normocephalic and atraumatic Face and Sinus: normal facial exam Eyes General Eye: normal appearance of both eyes Neck full ROM Chest Chest: symmetrical chest wall rise Resp normal respiratory effort and normal air movement Auscultation: clear to auscultation bilaterally Cardio regular rate, regular rhythm, S1 normal heart sound, S2 normal heart sound, no murmurs, no rub, no gallops and no clicks GI normal to inspection, nondistended, normoactive bowel sounds and non-tender appearance of the vagina normal Bladder / Kidney Exam: no CVA tenderness Manual OB Exam: estimated gestational size appropriate, presentation cephalic, dilated 8, effaced 80, station -1 and other SROM for large amount of meconium stained fluid Back/Spine normal ROM Extremity normal to inspection and full ROM Skin no rashes or lesions noted Neuro oriented x3, CN's II-XII intact bilaterally and moves all extremities Sensorium / Orientation: awake, alert and oriented to person Motor Exam: clonus absent Deep Tendon Reflexes: Rt Patellar (L4): 2+ and Lt Patellar (L4): 2+ Labs Labs Labs: Blood Type B NEGATIVE Antibody Screen NEGATIVE Hct, (37-47) 38.4 % Hgb, (12.0-15.0) 12.7 g/dL Syphilis Total Ab Non-reactive Hep Bs Antigen, (Negative) Negative Hepatitis C Antibody, (Nonreactive) Non-Reactive Hepatitis C Ab (EIA), (0.0-0.9) <0.1 s/co ratio Chlamydia DNA (RC), (Negative) Negative N.gonorrhoeae DNA (RC), (Negative) Negative HIV 1&2 Antibody, (Nonreactive) Non-Reactive Glucose 1 Hr 50 gm, (70-140) 114 mg/dL Group B Strep DNA, (Negative-) Negative Miscellaneous Test GBS positive-susceptible to Vanc, PCN allergic GC/CT negative Rubella Immune RPR negative HBsAg negative HepC negative HIV negative B negative Assessment & Plan (1) Active labor at term: (2) 39 weeks gestation of : (3) Positive GBS test: COMMENT: PCN allergy, susceptible to vancomycin (4) History of delivery: (5) Rh negative state in antepartum period: (6) Sickle cell trait: PLAN: Plan 1) Admit to labor and delivery 2) Routine labs 3) Continuous EFM 4) Pain management upon request 5) Dr.Russell arenas physician and notified of patient status, above assessment, and plan. 02/07/25 1305 <Electronically signed by Wendy Le CNM> Cosigner Signature (if applicable): CC: FRANKIE Le; Dr. Angeline Valderrama MD~ Signed [facility] Work Phone: 1(140) 995-384409-28-2025 Procedure note [facility] Medical Records Department [address] [place] [address] OB Vaginal Delivery 02/07/25 1339 MR#: [id number] Acct: [id number] Name: MARLON GRANGER Rep #:[id number] : 1995 29 From: Wendy BENNETT PCP: Dr. Angeline Valderrama MD Status :ADM IN Location: KL489-2 Assessment & Plan (1) Sickle cell trait: (2) Rh negative state in antepartum period: (3) Positive GBS test: COMMENT: PCN allergy, susceptible to vancomycin (4) Vaginal delivery: (5) First degree perineal laceration: (6) Lactating mother: Maternal Data Information HERBER Calculator Estimated Delivery Date Method Current WG Current Estimate 02/13/25 Manual 39w 1d Vaginal Delivery Maternal Presentation Maternal Presentation: Active Labor and Spontaneous Rupture of Membranes Vaginal Delivery Information Procedure Performed: Spontaneous Vaginal Delivery Surgeon/Practitioner: Wendy Le Date of Procedure: 02/07/25 Pre-Procedure Diagnosis: Active labor, MEC, SROM Post-Procedure Diagnosis: , first degree perineal laceration Type of anesthesia: None Estimated Blood Loss: 300 ml Time of Delivery: 13:23 Findings Description of procedure: Progressed to complete with urge to push. Nothing for pain management. of viable female infantover first degree perineal laceration . APGARS 8,9 respectively. Infant head delivered with body immediately forthcoming. Placed onmaternal abdomen, strong cry. Mouth and nares suctioned for secretions. Pitocin started for active 3rd stage management. Cord doubly clamped and cut by sister after pulsations ceased, delayed cord clamping. Placenta delivered intact via foote, 3 vessel cord intact. Perineum inspected and revealed intact degree perineal laceration. Repaired with 3.0 vicryl rapide one figure of 8 stitch, consented to no anesthesia. Fundus firm and hemostasis achieved. EBL 300ml. Vaginal sweep completed by me, sponge and instrument correct. Mom and baby stable, planning to breastfeed. notified of delivery. Presentation: Vertex and JEMIMA Amniotic Membrane Rupture Type: Spontaneous Amniotic Fluid Description: Thick meconium Placental Delivery Description: Spontaneous Placenta Disposition: [facility] Specimen collected: No Cord Vessel Description: 3 Vessels Cord Entanglement: None A Gender: Female (1 minute): 8 (5 minute): 9 Delayed Cord Clamping: Yes Eeo Officer gaming host: No Post Vaginal Deli Medications given after delivery: IV Pitocin Episiotomy Description: None Laceration: Perineal Extension/lac and 1st degree Complication Complications: No 02/07/25 1343 Cosigner Signature (if applicable): CC: FRANKIE Le; Dr. Angeline Valderrama MD~ Signed [facility]09-28-2025 Consult note [facility] Medical Records Department [address] [place] [address] Pharmacokinetic/Renal -Consult 02/07/25 1255 MR#: [id number] Acct: [id number] Name: MARLON GRANGER Rep #:[id number] : 1995 29 From: Peña Lemos PCP: Dr. Angeline Valderrama MD Status :ADM IN Y Location: [id number] Consult Antibiotic Management Pharmacy has been consulted to manage selected antibiotic: Vancomycin Type of Intervention Type of Consult: New start Suspected Infection Suspected Infection: Other (WP PPX) Prior Doses of Antibiotics Prior Doses of Antibiotics Received/Current Regimen: Vancomycin 1500 mg Q8H Dosing Weight Weight used for dosin.5 kg Goal Trough Goal Trough: 10-15 mcg/mL Pharmacy Plan for Drug Dosing Pharmacy Plan for Drug Dosing: Vancomycin 1500 mg Q8H, per RN likely close to delivery, will hold off on ordering trough for now Pharmacy Service will continue to monitor and adjust dosing as required. 02/07/25 1259 r> Date _ Peña Lemos 02/07/25 1305 CNM> Virgieignlori Signature (if applicable): Date Wendy Le CNM CC: ~ Signed [facility]09-28-2025 History and physical note [facility] Medical Records Department [address] [place] [address] H&P Exam - FOLLOW UP MANAGER 02/07/25 1255 MR#: [id number] Acct: [id number] Name: MARLON GRANGER Rep #:[id number] : 1995 29 From: Wendy BENNETT PCP: Dr. Angeline Valderrama MD Status :ADM IN Location: [id number] HPI - General General Date of Admission: 02/07/25 HPI Narrative MARLON GRANGER is a 29 F who presents at 39w1d with HERBER: 02/13/25. Presented with contractions increasing in strength and frequency. Upon triage went from 3cm to 6cm and admitted for labor. Maternal Data Information HERBER Calculator Estimated Delivery Date Method Current WG Current Estimate 02/13/25 Manual 39w 1d PFSH PFSH Home Medications ?Medication ?Instructions ?Recorded ?Last Taken ?Type vit no.95-ferrous 1 tab PO DAILY 02/06/25 21:00 History fumarate 28 mg-folic acid 800 mcg 1 TA B tablet () Allergy/AdvReac Type Severity Reaction Status Date / Time Penicillins Allergy Unknown Verified 02/07/25 12:43 Social History Smoking Status: Current every day smoker tobacco type: e-cigarettes History 2 Elective abortions Hx Para 1 Spontaneous abortions Hx # Term Pregnancies Ectopic pregnancies Hx # Pregnancies Multiple births # of living children NST FHR Rate Baby A Baseline: 130 Variability:: Moderate Accelerations:: 15 x 15 Decelerations:: Variable FHR Category:: Category II Uterine Activity:: every 2 minutes, strong ROS Constitutional Constitutional: Reports systems reviewed and no addt'l complaints, except as documented; Denies headache(s) Eyes Eyes: Denies acute decrease in peripheral vision, blurry vision or change in vision ENT HEENT: Reports systems reviewed and no addt'l complaints, except as documented Cardiovascular Cardiovascular: Denies chest pain or dizziness Respiratory/Chest Respiratory/Chest: Denies cough, dyspnea, dyspnea on exertion, shortness of breath at rest or shortness of breath with exertion Gastrointestinal Gastrointestinal: Denies abdominal pain, diarrhea, nausea or vomiting Genitourinary Genitourinary: Denies abdominal discomfort Musculoskeletal Musculoskeletal: Denies limited range of motion Integumentary Integumentary: Reports systems reviewed and no addt'l complaints, except as documented Neurologic Neurologic: Reports systems reviewed and no addt'l complaints, except as documented Psychiatric Psychiatric: Reports systems reviewed and no addt'l complaints, except as documented Endocrine Endocrinology: Reports systems reviewed and no addt'l complaints, except as documented Hematologic/Lymphatic Hematologic/Lymphatic: Reports systems reviewed and no addt'l complaints, exceptas documented Allergic/Immunologic Allergic/Immunologic: Reports systems reviewed and no addt'l complaints, except as documented Vital Signs Vital Signs Vital Signs: 02/07/25 12:20 02/07/25 12:20 02/07/25 12:36 Pulse Rate 117 H Blood Pressure 155/89 H 142/93 H BP Systolic 155 142 BP Diastolic 89 93 Pulse Ox 02/07/25 12:36 02/07/25 12:38 02/07/25 12:38 Pulse Rate 134 H 131 H Blood Pressure BP Systolic BP Diastolic Pulse Ox 97 Weight Weight: 159 lb 13.362 oz Body Mass Index (BMI) 27.4 Physical Exam Const alert and oriented x3 General Appearance: cooperative Orientation / Consciousness: awake, oriented to person, oriented to place and oriented to time Exam Limitations: no limitations HEENT normocephalic Head and Scalp: normal to inspection, normocephalic and atraumatic Face and Sinus: normal facial exam Eyes General Eye: normal appearance of both eyes Neck full ROM Chest Chest: symmetrical chest wall rise Resp normal respiratory effort and normal air movement Auscultation: clear to auscultation bilaterally Cardio regular rate, regular rhythm, S1 normal heart sound, S2 normal heart sound, no murmurs, no rub, no gallops and no clicks GI normal to inspection, nondistended, normoactive bowel sounds and non-tender appearance of the vagina normal Bladder / Kidney Exam: no CVA tenderness Manual OB Exam: estimated gestational size appropriate, presentation cephalic, dilated 8, effaced 80, station -1 and other SROM for large amount of meconium stained fluid Back/Spine normal ROM Extremity normal to inspection and full ROM Skin no rashes or lesions noted Neuro oriented x3, CN's II-XII intact bilaterally and moves all extremities Sensorium / Orientation: awake, alert and oriented to person Motor Exam: clonus absent Deep Tendon Reflexes: Rt Patellar (L4): 2+ and Lt Patellar (L4): 2+ Labs Labs Labs: Blood Type B NEGATIVE Antibody Screen NEGATIVE Hct, (37-47) 38.4 % Hgb, (12.0-15.0) 12.7 g/dL Syphilis Total Ab Non-reactive Hep Bs Antigen, (Negative) Negative Hepatitis C Antibody, (Nonreactive) Non-Reactive Hepatitis C Ab (EIA), (0.0-0.9) <0.1 s/co ratio Chlamydia DNA (RC), (Negative) Negative N.gonorrhoeae DNA (RC), (Negative) Negative HIV 1&2 Antibody, (Nonreactive) Non-Reactive Glucose 1 Hr 50 gm, (70-140) 114 mg/dL Group B Strep DNA, (Negative-) Negative Miscellaneous Test GBS positive-susceptible to Vanc, PCN allergic GC/CT negative Rubella Immune RPR negative HBsAg negative HepC negative HIV negative B negative Assessment & Plan (1) Active labor at term: (2) 39 weeks gestation of : (3) Positive GBS test: COMMENT: PCN allergy, susceptible to vancomycin (4) History of delivery: (5) Rh negative state in antepartum period: (6) Sickle cell trait: PLAN: Plan 1) Admit to labor and delivery 2) Routine labs 3) Continuous EFM 4) Pain management upon request 5) Dr.Russell arenas physician and notified of patient status, above assessment, and plan. 02/07/25 1305 Cosigner Signature (if applicable): CC: FRANKIE Le; Dr. Angeline Valderrama MD~ Signed [facility]09-26-2025 NoteHNO ID: [id number] Author: NUVIA AGUILAR MA Service: ? Author Type: Intelligent Systems Engineer Type: Progress Notes Filed: 02/05/2025 10:02 Note Text: POPULATION HEALTH NAVIGATION OUTREACH Action/ 2nd attempt: Called and left message to call back . Reason for Outreach Medicaid OB/Peds Care Gaps due: to PCP Visit Patient Contacted: Unable or unnecessary to reach patient: Unable to reach patient Left message Navigation Signature: Nuvia Ramirez MA February 05, 2025 10:01 [facility]09-24-2025 NoteHNO ID: [id number] Author: NUVIA AGUILAR MA Service: ? Author Type: Intelligent Systems Engineer Type: Progress Notes Filed: 02/03/2025 12:10 Note Text: POPULATION HEALTH NAVIGATION OUTREACH Action/ 1st attempt: Called and left message to call back to discuss casey saw operator. MC message sent. PPC to PCP by 04/12/25. Reason for Outreach Medicaid OB/Peds Care Gaps due: to PCP Visit Patient Contacted: Unable or unnecessary to reach patient: Unable to reach patient Left message MyChart message sent Navigation Signature: Nuvia Ramirez MA February 03, 2025 12:09 [facility]09-24-2025 NotePatient Outreach (NETNAV) ELKINMARLON Tata Palma ([id number]) 1995 F Date Time Provider Department 02/03/25 NUVIA AGUILAR During your visit today, we recorded the following information about you: Nuvia Aguilar MA 02/03/2025 12:10 PM Signed POPULATION HEALTH NAVIGATION OUTREACH Action/I 1st attempt: Called and left message to call back to discuss casey saw operator. message sent. PPC to PCP by 04/12/25. Reason for Outreach Medicaid OB/Peds Care Gaps due: to PCP Visit Patient Contacted: Unable or unnecessary to reach patient: Unable to reach patient Left message MyCCO Everywheret message sent Navigation Signature: Nuvia Ramirez MA February 03, 2025 12:09 PM Nuvia Aguilar MA 02/05/2025 10:02 AM Signed POPULATION HEALTH NAVIGATION OUTREACH Action/I 2nd attempt: Called and left message to [...] trim*11/20/2024 Encounter Status:Closed by NUVIA AGUILAR on 02/03/25[facility] 01-31-2025 History and physical note [facility] Medical Records Department [address] [place] [address] OB Triage Physician Note 01/31/25 0645 MR#: [id number] Acct: [id number] Name: MARLON GRANGER Rep #:[id number] : 1995 29 From: Grisel Shen MD PCP: Dr. Angeline Valderrama MD Status :REG CLI Y Location: [place] 752102-1 HPI - General General Date of Admission: 01/31/25 Date of Service: 01/31/25 Chief Complaint: contractions HPI Narrative MARLON GRANGER, is a 29 F who presents contractions not painful. No loss of fluid, no bleeding. Cervical exam unchanged. Maternal Data Information Final HERBER: [birth year] Gestational age: 38+2 PFSH PFSH Allergy/AdvReac Type Severity Reaction Status Date / Time Penicillins Allergy Unknown Verified 01/31/25 06:18 Social History Smoking Status: Current every day smoker tobacco type: e-cigarettes History 2 Elective abortions Hx Para 1 Spontaneous abortions Hx # Term Pregnancies Ectopic pregnancies Hx # Pregnancies Multiple births # of living children NST FHR Rate Baby A Baseline: 135 Variability:: Moderate Accelerations:: 15 x 15 Decelerations:: None NST Reactive:: Yes Uterine Activity:: Frequent Assessment & Plan (1) 38 weeks gestation of : (2) Uterine contractions: PLAN: Plan Discharge home undelivered 01/31/25 0904 in MD> Date _ Grisel Shen MD Cosigner Signature (if applicable): Date CC: Dr. Angeline Valderrama MD; Dr. Grisel Shen MD ~ Signed [facility]09-21-2025 History and physical note Author Grisel Adrian [facility] Note Date/Time January 31, 2025 9:04[facility] Medical Records Department [address] [place] [address] OB Triage Physician Note 01/31/25 0645 MR#: [id number] Acct: [id number] Name: MARLON GRANGER Rep #:[id number] : 1995 29 From: Grisel Shen MD PCP: Dr. Angeline Valderrama MD Status :REG CLI Y Location: [place] 752102-1 HPI - General General Date of Admission: 01/31/25 Date of Service: 01/31/25 Chief Complaint: contractions HPI Narrative MARLON GRANGER, is a 29 F who presents contractions not painful. No loss of fluid, no bleeding. Cervical exam unchanged. Maternal Data Information Final HERBER: [birth year] Gestational age: 38+2 PFSH PFSH Allergy/AdvReac Type Severity Reaction Status Date / Time Penicillins Allergy Unknown Verified 01/31/25 06:18 Social History Smoking Status: Current every day smoker tobacco type: e-cigarettes History 2 Elective abortions Hx Para 1 Spontaneous abortions Hx # Term Pregnancies Ectopic pregnancies Hx # Pregnancies Multiple births # of living children NST FHR Rate Baby A Baseline: 135 Variability:: Moderate Accelerations:: 15 x 15 Decelerations:: None NST Reactive:: Yes Uterine Activity:: Frequent Assessment & Plan (1) 38 weeks gestation of : (2) Uterine contractions: PLAN: Plan Discharge home undelivered 01/31/25903 <Electronically signed by Grisel Gay in [place]> Date _ Grisel Shen MD Cosigner Signature (if applicable): Date CC: Dr. Angeline Valderrama MD; Dr. Grisel Shen MD ~ Signed [facility] Work Phone: 1(562) 758-191909-21-2025 Evaluation note* Diagnosis Onset Date Resolution Status Admit Date 38 weeks gestation of acute January 31, 2025 5:08am Uterine contractions acute Jan 5:08am 39 weeks gestation of acute February 07, 2025 12:18pm Active labor at term [facility] 2024 12:18pm First degree perineal laceration acute February 07, 2025 12:18pm History of delivery acute February 07, 2025 12:18pm Lactating mother [facility] 2024 12:18pm Positive GBS test acute [facility] 2024 12:18pm Rh negative state in antepartum period acute January 12:18pm Sickle cell trait acute [facility] 2024 12:18pm Vaginal delivery acute [facility] 2024 12:18pm [facility] Work Phone: 1(535) 998-367209-21-2025 Evaluation note* Diagnosis Onset Date Resolution Status Admit Date 38 weeks gestation of acute January 31, 2025 5:08am Uterine contractions acute [facility] 2024 5:08am 39 weeks gestation of acute February 07, 2025 12:18pm Active labor at term acute [facility] 2024 12:18pm Care and examination of lactating mother acute February 07, 2025 12:18pm Elevated blood pressure reading with diagnosis of hypertension acute February 07, 2025 12:18pm First degree perineal laceration acute February 07, 2025 12:18pm History of delivery acute February 07, 2025 12:18pm Lactating mother acute [facility] 2024 12:18pm Positive GBS test acute [facility] 2024 12:18pm Rh negative state in antepartum period acute January 12:18pm Sickle cell trait acute [facility] 2024 12:18pm Vaginal delivery acute [facility] 2024 12:18pm [facility] Work Phone: 1(290) 817-731609-15-2025 Progress note* Quick Notes - Jose Soto MD - 01/25/2025 10:24 AM EDT SW- Pt doing well. No ctx, vb, lof. Good FM PE: Gen- NAD, well appearing Abd- Soft, gravid, NT, S=D See flowsheet A/p 37 wk gestation - Labor precautions reviewed - GBS positive - plan sheet given per patient request - RTO 1 wk Jose Soto DO [place] [facility] Miscellaneous Notes* Quick Notes - Jose Soto MD - 01/25/2025 10:24 AM EDT SW- Pt doing well. No ctx, vb, lof. Good FM PE: Gen- NAD, well appearing Abd- Soft, gravid, NT, S=D See flowsheet A/p 37 wk gestation - Labor precautions reviewed - GBS positive - plan sheet given per patient request - RTO 1 wk Jose Soto DO documented in [facility] encounterBl[facility] Instructions* Patient Instructions* Nuvia Bolden MA - 01/25/2025 10:12 AM EDT SEQUENTIAL SCREENINGS The [facility] offers sequential screenings for women who are interested in screenings for chromosomal abnormalities and certain defects during a . The sequential screen combinesultrasound and blood tests to determine the risk of chromosomal abnormalities, including Down's Syndrome (Trisomy 21) and Trisomy 18, as well as open neural tube defects including spina bifida. Ultrasound examination is performed between 11 weeks and 13 weeks gestational age. Blood tests are drawn after the ultrasound and again later in the between 15 and 21 weeks gestational age. Please let your physician know if you are interested in this testing. It will require an appointment withour denture laboratory technician. This is not an ultrasound performed by a physician in our office during a routine visit. SIGNS AND SYMPTOMS OF LABOR 1. Contractions every 10 minutes or more often 2. Clear, pink, or brownish fluid (water) leaking from vagina 3. Feeling that baby is pushing down, pressure 4. Low, dull backache 5. Cramps that feel like a period 6. Cramps with or without diarrhea If you notice any of the above symptoms, contact our office at [phone] and ask to speak with anurse. After hours, you can call doctors registry at [phone] OR call [facility] at [phone] ask to have the doctor twenty one dealer paged. If you consider this an emergency, dial 6-4-6 or go to your nearest emergency department. NEED HELP? Are you dealing with a violent or abusive relationship? Are you a victim of rape or sexual assult? Call [facility] ([place]) 24 hour Crisis Hotline: 290.464.8546 or 957-002-7011. MANUAL Your Guide to a Healthy manual is now on-line. Visit [email or web address] to download your free copy documented in this encounterBlanchard [facility]09-08-2025 Note* Addendum Note - Jose Soto MD - 01/18/2025 3:14 PM EDTAddended by: JOSE SOTO on: 01/18/2025 03:14 PM Modules accepted: Orders [facility]09-08-2025 Miscellaneous Notes* Addendum Note - Jose Soto MD - 01/18/2025 3:14 PM EDTAddended by: JOSE SOTO on: 01/18/2025 03:14 PM Modules accepted: Orders * Addendum Note - Daniel Stafford LPN - 01/18/2025 11:52 AM EDTAddended by: DANIEL STAFFORD on: 01/18/2025 11:52 AM Modules accepted: Orders * Quick Notes - Jose Soto MD - 01/18/2025 11:32 AM EDT SW- Having some acid reflux and nausea. No vomiting. Denies HOGAN, ctx, vb, lof. Good FM PE: Gen- NAD, well appearing Abd- Soft, gravid, NT See flowsheet A/p 36 wk gestation - GBS bacteruria and PCN allergy. Patient reports hives with PCN. Did not complete allergy testing.GBS today for sensitivities - Bedside ultrasound vertex presentation - Anemia: Improved - Pepcid for acid reflux - Discussed PTL precautions - RTO 1 wk Jose Soto DO documented in this encounterBl[facility]09-08-2025 Note* Addendum Note - Daniel Stafford LPN - 01/18/2025 11:52 AM EDTAddended by: DANIEL STAFFORD on: 01/18/2025 11:52 AM Modules accepted: Orders [facility]09-08-2025 Progress note* Quick Notes - Jose Soto MD - 01/18/2025 11:32 AM EDT SW- Having some acid reflux and nausea. No vomiting. Denies HOGAN, ctx, vb, lof. Good FM PE: Gen- NAD, well appearing Abd- Soft, gravid, NT See flowsheet A/p 36 wk gestation - GBS bacteruria and PCN allergy. Patient reports hives with PCN. Did not complete allergy testing.GBS today for sensitivities - Bedside ultrasound vertex presentation - Anemia: Improved - Pepcid for acid reflux - Discussed PTL precautions - RTO 1 wk Jose Soto DO [facility]09-08-[facility] Instructions* Patient Instructions* Daniel Stafford LPN - 01/18/2025 11:06 AM EDT SEQUENTIAL SCREENINGS The [facility] offers sequential screenings for women who are interested in screenings for chromosomal abnormalities and certain defects during a . The sequential screen combinesultrasound and blood tests to determine the risk of chromosomal abnormalities, including Down's Syndrome (Trisomy 21) and Trisomy 18, as well as open neural tube defects including spina bifida. Ultrasound examination is performed between 11 weeks and 13 weeks gestational age. Blood tests are drawn after the ultrasound and again later in the between 15 and 21 weeks gestational age. Please let your physician know if you are interested in this testing. It will require an appointment withour denture laboratory technician. This is not an ultrasound performed by a physician in our office during a routine visit. SIGNS AND SYMPTOMS OF LABOR 1. Contractions every 10 minutes or more often 2. Clear, pink, or brownish fluid (water) leaking from vagina 3. Feeling that baby is pushing down, pressure 4. Low, dull backache 5. Cramps that feel like a period 6. Cramps with or without diarrhea If you notice any of the above symptoms, contact our office at [phone] and ask to speak with anurse. After hours, you can call doctors registry at [phone] OR call [facility] at [phone] ask to have the doctor twenty one dealer paged. If you consider this an emergency, dial 9--1 or go to your nearest emergency department. NEED HELP? Are you dealing with a violent or abusive relationship? Are you a victim of rape or sexual assult? Call [facility] ([place]) 24 hour Crisis Hotline: 702.266.4772 or 833-983-0683. MANUAL Your Guide to a Healthy manual is now on-line. Visit [email or web address] to download your free copy documented in this encounterBlanchard [facility]09-05-2025 Progress note* Quick Notes - Geo Marie MD - 01/15/2025 2:55 PM EDT KJ - S: [place] denies LOF, contractions or vaginal bleeding. O: 35w6d, see flow sheet SENSITIVE EXAM: Sensitive exam not performed. A/P: Assessment & Plan 35 weeks gestation of (HCC) Orders: URINE OB DIP B/O Supervision of high risk in third trimester (HCC) Orders: URINE OB DIP B/O Anemia complicating , third trimester (HCC) Repeat CBC today GBS positive Reviewed PTL & FM precautions Geo Marie MD [facility]09-05-2025 Miscellaneous Notes* Quick Notes - Geo Marie MD - 01/15/2025 2:55 PM EDT KJ - S: [place] denies LOF, contractions or vaginal bleeding. O: 35w6d, see flow sheet SENSITIVE EXAM: Sensitive exam not performed. A/P: Assessment & Plan 35 weeks gestation of (HCC) Orders: URINE OB DIP B/O Supervision of high risk in third trimester (HCC) Orders: URINE OB DIP B/O Anemia complicating , third trimester (HCC) Repeat CBC today GBS positive Reviewed PTL & FM precautions Geo Marie MD documented in this encounterBl[facility]ard [facility]09-05-2025 Instructions* Patient Instructions* Ifeanyi Medina LPN - 01/15/2025 2:46 PM EDT SEQUENTIAL SCREENINGS The [facility] offers sequential screenings for women who are interested in screenings for chromosomal abnormalities and certain defects during a . The sequential screen combinesultrasound and blood tests to determine the risk of chromosomal abnormalities, including Down's Syndrome (Trisomy 21) and Trisomy 18, as well as open neural tube defects including spina bifida. Ultrasound examination is performed between 11 weeks and 13 weeks gestational age. Blood tests are drawn after the ultrasound and again later in the between 15 and 21 weeks gestational age. Please let your physician know if you are interested in this testing. It will require an appointment withour denture laboratory technician. This is not an ultrasound performed by a physician in our office during a routine visit. SIGNS AND SYMPTOMS OF LABOR 1. Contractions every 10 minutes or more often 2. Clear, pink, or brownish fluid (water) leaking from vagina 3. Feeling that baby is pushing down, pressure 4. Low, dull backache 5. Cramps that feel like a period 6. Cramps with or without diarrhea If you notice any of the above symptoms, contact our office at [phone] and ask to speak with anurse. After hours, you can call doctors registry at [phone] OR call [facility] at [phone] ask to have the doctor twenty one dealer paged. If you consider this an emergency, dial 7-1- or go to your nearest emergency department. NEED HELP? Are you dealing with a violent or abusive relationship? Are you a victim of rape or sexual assult? Call [facility] ([place]) 24 hour Crisis Hotline: 921.316.7316 or 275-194-1336. MANUAL Your Guide to a Healthy manual is now on-line. Visit [email or web address] to download your free copy documented in this encounterBlanchard Valley [facility]08-21-2025 Telephone encounter Note * Telephone Encounter - Nancy Haile RN - 12/31/2024 4:41 PM EDT Orders for belly band and compression stockings received from [employer]. Patient requested them at visit today. Signed by IRINEO and faxed back. Nancy Haile RN [facility]08-21[facility]25 Miscellaneous Notes* Telephone Encounter - Nancy Haile RN - 12/31/2024 4:41 PM EDT Orders for belly band and compression stockings received from [employer]. Patient requested them at visit today. Signed by IRINEO and faxed back. Nancy Haile RN documented in this encounterBlanchard Valley Health System08-21-2025 Progress note* Quick Notes - Grisel Shen MD - 12/31/2024 12:33 PM EDT S: Marlon Granger is a 29 year old female who presents at 02/13/2025, by Last Menstrual Period for a routine visit. Denies headache, visual changes, chest pain, shortness of breath, vaginal bleeding, leakage of fluid, or dysuria. Feeling well, no complaints. Good movement, No contractions O: See flow sheet Gen: No apparent distress Abd: Gravid, nontender Discharge with no odor. Desires STD screening also. Needs order for compression socks and pp care package. Trying to send through my chart. Order in her email ASSESSMENT/PLAN: 1. 33 weeks gestation of ([facility]) - ICD9: V22.2, ICD10: Z3A.33 (primary diagnosis) 2. Supervision of high risk in third trimester ([facility]) - ICD9: V23.9, ICD10: O09.93 3. Vaginal discharge - ICD9: 623.5, ICD10: N89.8 - BACTERIAL VAGINOSIS NAAT - SHANNAN/TRICHOMONAS NAAT - GONORRHEA/CHLAMYDIA NAAT Grisel Shen MD [facility]08-21-2025 Miscellaneous Notes* Quick Notes - Grisel Shen MD - 12/31/2024 12:33 PM EDT S: Marlon Palma Granger is a 29 year old female who presents at 02/13/2025, by Last Menstrual Period for a routine visit. Denies headache, visual changes, chest pain, shortness of breath, vaginal bleeding, leakage of fluid, or dysuria. Feeling well, no complaints. Good movement, No contractions O: See flow sheet Gen: No apparent distress Abd: Gravid, nontender Discharge with no odor. Desires STD screening also. Needs order for compression socks and pp care package. Trying to send through my chart. Order in her email ASSESSMENT/PLAN: 1. 33 weeks gestation of ([facility]) - ICD9: V22.2, ICD10: Z3A.33 (primary diagnosis) 2. Supervision of high risk in third trimester ([facility]) - ICD9: V23.9, ICD10: O09.93 3. Vaginal discharge - ICD9: 623.5, ICD10: N89.8 - BACTERIAL VAGINOSIS NAAT - SHANNAN/TRICHOMONAS NAAT - GONORRHEA/CHLAMYDIA NAAT Grisel Shen MD documented in this encounterBlanchard [facility]08-21-2025 Instructions* Patient Instructions* Nuvia Bolden MA - 12/31/2024 11:05 AM EDT SEQUENTIAL SCREENINGS The [facility] offers sequential screenings for women who are interested in screenings for chromosomal abnormalities and certain defects during a . The sequential screen combinesultrasound and blood tests to determine the risk of chromosomal abnormalities, including Down's Syndrome (Trisomy 21) and Trisomy 18, as well as open neural tube defects including spina bifida. Ultrasound examination is performed between 11 weeks and 13 weeks gestational age. Blood tests are drawn after the ultrasound and again later in the between 15 and 21 weeks gestational age. Please let your physician know if you are interested in this testing. It will require an appointment withour denture laboratory technician. This is not an ultrasound performed by a physician in our office during a routine visit. SIGNS AND SYMPTOMS OF LABOR 1. Contractions every 10 minutes or more often 2. Clear, pink, or brownish fluid (water) leaking from vagina 3. Feeling that baby is pushing down, pressure 4. Low, dull backache 5. Cramps that feel like a period 6. Cramps with or without diarrhea If you notice any of the above symptoms, contact our office at [phone] and ask to speak with anurse. After hours, you can call doctors registry at [phone] OR call [facility] at [phone] ask to have the doctor twenty one dealer paged. If you consider this an emergency, dial 9-1-1 or go to your nearest emergency department. NEED HELP? Are you dealing with a violent or abusive relationship? Are you a victim of rape or sexual assult? Call [facility] ([place]) 24 hour Crisis Hotline: 592.385.9252 or 455-633-8122. MANUAL Your Guide to a Healthy manual is now on-line. Visit [email or web address] to download your free copy documented in this encounterBlanchard Valley [facility]08-14-2025 Telephone encounter Note * Telephone Encounter - Grisel Humphries RN - 12/24/2024 4:19 PM EDT Faxed. Grisel Humphries RN [facility]08-14-2025 Miscellaneous Notes* Telephone Encounter - Grisel Humphries RN - 12/24/2024 4:19 PM EDT Faxed. Grisel Humphries RN * Telephone Encounter - Kelly Stern LPN - 12/24/2024 4:08 PM EDT Order received from [facility] for breast pump. Order to Keerthi Zamora to sign documented in this encounterBlanchard Valley Health System08-14-2025 Telephone encounter Note * Telephone Encounter - Kelly Stern LPN - 12/24/2024 4:08 PM EDT Order received from [employer] for breast pump. Order to Keerthi Zamora to sign [facility]07-29-2025 Miscellaneous Notes* Telephone Encounter - Lili Bolaños RN - 12/08/2024 11:35 AM EDT 3rd risk assessment form submitted 12/08/24 Lili Bolaños RN documented in this encounterBlanchard Valley Health System07-29-2025 Telephone encounter Note * Telephone Encounter - Lili Bolaños RN - 12/08/2024 11:35 AM EDT 3rd risk assessment form submitted 12/08/24 Lili Bolaños RN [facility]07-28-2025 Telephone encounter Note* Telephone Encounter - Jailyn Trotter RN - 12/07/2024 1:33 PM EDT Spoke to J re: letter. Omitted PCN and cephalosporins from generally permitted as Pt is just needing cavity filled & known allergy documented. If Pt were to need antibiotic for more than just a cavity, dental office should contact office for further guidance. Letter faxed. Jailyn Trotter RN [facility]07-28-2025 Miscellaneous Notes* Telephone Encounter - Jailyn Trotter RN - 12/07/2024 1:33 PM EDT Spoke to J re: letter. Omitted PCN and cephalosporins from generally permitted as Pt is just needing cavity filled & known allergy documented. If Pt were to need antibiotic for more than just a cavity, dental office should contact office for further guidance. Letter faxed. Jailyn Trotter RN * Telephone Encounter - Jailyn Trotter RN - 12/07/2024 1:09 PM EDT * Telephone Encounter - Grisel Humphries RN - 12/07/2024 9:14 AM EDT 30w2d Patient needs a dental letter to have a cavity filled. She will contact their office and then call us back with their fax number. Patient has a PCN allergy - make note of this on the letter for dentist. Grisel Humphries RN documented in this encounterBlanchard Valley Health System07-28-2025 Telephone encounter Note * Telephone Encounter - Jailyn Trotter RN - 12/07/2024 1:09 PM EDT [facility] Telephone encounter Note* Telephone Encounter - Grisel Humphries RN - 12/07/2024 9:14 AM EDT 30w2d Patient needs a dental letter to have a cavity filled. She will contact their office and then call us back with their fax number. Patient has a PCN allergy - make note of this on the letter for dentist. Grisel Humphries RN [facility]07-24-[facility]25 Progress note* Quick Notes - James Zamora APRN.PUBLIC HEALTH EPIDEMIOLOGIST - 12/03/2024 1:53 PM EDT EH - S: [place] is a 29 year old female who presents at 29w5d for a routine visit. Feeling movement. Denies headache, visual changes, chest pain, shortness of breath, vaginal bleeding, leakage of fluid, or dysuria. Notes new lesion to vulva. Wondering if she has an ingrown hair. States it waslarge, but has now decreased in size. Asking for disabled placard. Wants water - asking if this is available at [facility]. Participation of a fellow, resident, medical student, or advanced practice provider student in performing the sensitive examination was discussed with the patient or authorized community health program representative. The patient or authorized community health program representative has agreed to proceed with the sensitive examination. O: See flow sheet Gen: No apparent distress Abd: Gravid, nontender, S=D ASSESSMENT/PLAN: 1. Supervision of high risk in third trimester ([facility]) - ICD9: V23.9, ICD10: O09.93 (primary diagnosis) - Continue PNV - Interested in water at [facility], but also states she is considering delivering at [facility]. Discussed that if she is planning to deliver at [facility], I would recommend transferring care. 2. 29 weeks gestation of ([facility]) - ICD9: V22.2, ICD10: Z3A.29 - 28 week labs reviewed 3. Anemia complicating , third trimester ([facility]) - ICD9: 648.23, 285.9, ICD10: O99.013 - Continue oral iron - 10.2 on 11/20 4. History of delivery, currently ([facility]) - ICD9: V23.89, ICD10: O09.899 5. Group beta Strep positive - ICD9: 041.02, ICD10: B95.1 6. Penicillin allergy - ICD9: V14.0, ICD10: Z88.0 - Penicillin allergy consult placed - Will need antibiotic during labor 7. Vulvar lesion - ICD9: 624.8, ICD10: N90.89 - Slight break in skin noted at superior right vulva next to clitoris, no surrounding redness or swelling - HERPES SIMPLEX VIRUS (HSV-1 & HSV-2) AND VARICELLA ZOSTER VIRUS (VZV), NAAT, LESION SWAB PTL precautions and kick counts reviewed. RTO in 2 weeks or sooner as needed. James Zamora APRN.COLLEEN [facility]07-24-2025 Miscellaneous Notes* Quick Notes - James Zamora APRN.CNP - 12/03/2024 1:53 PM EDT EH - S: [place] is a 29 year old female who presents at 29w5d for a routine visit. Feeling movement. Denies headache, visual changes, chest pain, shortness of breath, vaginal bleeding, leakage of fluid, or dysuria. Notes new lesion to vulva. Wondering if she has an ingrown hair. States it waslarge, but has now decreased in size. Asking for disabled placard. Wants water - asking if this is available at [facility]. Participation of a fellow, resident, medical student, or advanced practice provider student in performing the sensitive examination was discussed with the patient or authorized community health program representative. The patient or authorized community health program representative has agreed to proceed with the sensitive examination. O: See flow sheet Gen: No apparent distress Abd: Gravid, nontender, S=D ASSESSMENT/PLAN: 1. Supervision of high risk in third trimester ([facility]) - ICD9: V23.9, ICD10: O09.93 (primary diagnosis) - Continue PNV - Interested in water at [facility], but also states she is considering delivering at [facility]. Discussed that if she is planning to deliver at [facility], I would recommend transferring care. 2. 29 weeks gestation of ([facility]) - ICD9: V22.2, ICD10: Z3A.29 - 28 week labs reviewed 3. Anemia complicating , third trimester ([facility]) - ICD9: 648.23, 285.9, ICD10: O99.013 - Continue oral iron - 10.2 on 11/20 4. History of delivery, currently ([facility]) - ICD9: V23.89, ICD10: O09.899 5. Group beta Strep positive - ICD9: 041.02, ICD10: B95.1 6. Penicillin allergy - ICD9: V14.0, ICD10: Z88.0 - Penicillin allergy consult placed - Will need antibiotic during labor 7. Vulvar lesion - ICD9: 624.8, ICD10: N90.89 - Slight break in skin noted at superior right vulva next to clitoris, no surrounding redness or swelling - HERPES SIMPLEX VIRUS (HSV-1 & HSV-2) AND VARICELLA ZOSTER VIRUS (VZV), NAAT, LESION SWAB PTL precautions and kick counts reviewed. RTO in 2 weeks or sooner as needed. James Zamora APRN.COLLEEN documented in this encounterBlanchard Valley Health System07-24-2025 Instructions* Patient Instructions* Sudha Lugo MA - 12/03/2024 1:35 PM EDT SEQUENTIAL SCREENINGS The [facility] offers sequential screenings for women who are interested in screenings for chromosomal abnormalities and certain defects during a . The sequential screen combinesultrasound and blood tests to determine the risk of chromosomal abnormalities, including Down's Syndrome (Trisomy 21) and Trisomy 18, as well as open neural tube defects including spina bifida. Ultrasound examination is performed between 11 weeks and 13 weeks gestational age. Blood tests are drawn after the ultrasound and again later in the between 15 and 21 weeks gestational age. Please let your physician know if you are interested in this testing. It will require an appointment withour denture laboratory technician. This is not an ultrasound performed by a physician in our office during a routine visit. SIGNS AND SYMPTOMS OF LABOR 1. Contractions every 10 minutes or more often 2. Clear, pink, or brownish fluid (water) leaking from vagina 3. Feeling that baby is pushing down, pressure 4. Low, dull backache 5. Cramps that feel like a period 6. Cramps with or without diarrhea If you notice any of the above symptoms, contact our office at [phone] and ask to speak with anurse. After hours, you can call doctors registry at [phone] OR call [facility] at [phone] ask to have the doctor twenty one dealer paged. If you consider this an emergency, dial 9-1-1 or go to your nearest emergency department. NEED HELP? Are you dealing with a violent or abusive relationship? Are you a victim of rape or sexual assult? Call [facility] ([place]) 24 hour Crisis Hotline: 438.784.2175 or 060-105-6864. MANUAL Your Guide to a Healthy manual is now on-line. Visit [email or web address] to download your free copy documented in this encounterBlanchard Valley Health System07-14-2025 Note* Addendum Note - James Zamora APRN.CNP - 11/23/2024 2:28 PM EDTAddended by: JAMES ZAMORA on: 11/23/2024 02:28 PM Modules accepted: Orders [facility]07-14-2025 Miscellaneous Notes* Addendum Note - James Zamora APRN.CNP - 11/23/2024 2:28 PM EDTAddended by: JAMES ZAMORA on: 11/23/2024 02:28 PM Modules accepted: Orders * Addendum Note - Jailyn Trotter RN - 11/23/2024 2:26 PM EDTAddended by: JAILYN TROTTER on: 11/23/2024 02:26 PM Modules accepted: Orders * Telephone Encounter - Jailyn Trotter RN - 11/23/2024 2:20 PM EDT Pharmacy called and states 220mg/5mL w/44mg Iron is what they have in stock. States they can adjustRx if Pt needs the 60mg of iron, but will need dispense amt changed. Spoke to CHIEF RADIATION THERAPIST and Rx pending as Pt will have recheck Iron level in 4 weeks. Pharmacist advised that new Rx will be sent. Updated mychart message sent to Pt. Jailyn Trotter RN * Telephone Encounter - Grisel Humphries RN - 11/23/2024 1:48 PM EDT Rx sent James Zamora APRN.PUBLIC HEALTH EPIDEMIOLOGIST * Telephone Encounter - Jailyn Trotter RN - 11/23/2024 12:55 PM EDT Pt calling re: Anemia/Iron labs as she saw results on Mychart and asking if a liquid Iron supplement can be prescribed. Please advise. Jailyn Trotter RN documented in this encounterBl[facility]-2025 Note* Addendum Note - Jailyn Trotter RN - 11/23/2024 2:26 PM EDTAddended by: JAILYN TROTTER on: 11/23/2024 02:26 PM Modules accepted: Orders [facility]07-14-2025 Telephone encounter Note* Telephone Encounter - Jailyn Trotter RN - 11/23/2024 2:20 PM EDT Pharmacy called and states 220mg/5mL w/44mg Iron is what they have in stock. States they can adjustRx if Pt needs the 60mg of iron, but will need dispense amt changed. Spoke to CHIEF RADIATION THERAPIST and Rx pending as Pt will have recheck Iron level in 4 weeks. Pharmacist advised that new Rx will be sent. Updated mychart message sent to Pt. Jailyn Trotter RN [facility]07-14-2025 Telephone encounter Note* Telephone Encounter - Grisel Humphries RN - 11/23/2024 1:48 PM EDT Rx sent James Zamora APRN.PUBLIC HEALTH EPIDEMIOLOGIST [facility]07-14-2025 Telephone encounter Note* Telephone Encounter - Jailyn Trotter RN - 11/23/2024 12:55 PM EDT Pt calling re: Anemia/Iron labs as she saw results on Mychart and asking if a liquid Iron supplement can be prescribed. Please advise. Jailyn Trotter, CHICHO [facility]07-11-2025 Progress note* Quick Notes - Wendy Le APRN.CNM - 11/20/2024 1:30 PM EDT FRANK-S: Mralon Tata Granger is a 29 year old female who presents at 27w6d with HERBER:02/13/2025, by Last Menstrual Period for a routine visit. Denies headache, visual changes, chest pain, shortness of breath, vaginal bleeding, leakage of fluid, or dysuria. Feeling well, no complaints. O: See flow sheet Gen: No apparent distress Abd: Gravid, nontender ASSESSMENT/PLAN: 1. Supervision of high risk in second trimester - 1 hour GCT, CBC, and RPR toda - TDAP, declines today, discuss next visit. - LARC form reviewed and signed. Patient declines - Depression screen negative - Opioid screen negative - plan form discussed and given to patient. 2. 27 weeks gestation of ([facility]) - ICD9: V22.2, ICD10: Z3A.27 3. History of delivery, currently ([facility]) - ICD9: V23.89, ICD10: O09.899 4. Rh negative state in antepartum period ([facility]) - ICD9: 646.83, ICD10: O26.899, Z67.91 - RHO(D) IMMUNE GLOBULIN 1,500 UNIT (300 MCG)/2 ML INJECTION SYRINGE - THER/PROPH/DIAG INJ, SC/IM - Rh negative- Rhogam injection today, all questions answered 5. Sickle cell trait - ICD9: 282.5, ICD10: D57.3 6. Penicillin allergy - ICD9: V14.0, ICD10: Z88.0 - CONSULT TO PENICILLIN ALLERGY 7. Group beta Strep positive -GBS prophylaxis during labor PTL precautions reviewed and when to call RTO in 2 weeks [facility]07-11-2025 Miscellaneous Notes* Quick Notes - Wendy Le APRN.CNM - 11/20/2024 1:30 PM EDT FRANK-S: Marlon Tata Granger is a 29 year old female who presents at 27w6d with HERBER:02/13/2025, by Last Menstrual Period for a routine visit. Denies headache, visual changes, chest pain, shortness of breath, vaginal bleeding, leakage of fluid, or dysuria. Feeling well, no complaints. O: See flow sheet Gen: No apparent distress Abd: Gravid, nontender ASSESSMENT/PLAN: 1. Supervision of high risk in second trimester - 1 hour GCT, CBC, and RPR toda - TDAP, declines today, discuss next visit. - LARC form reviewed and signed. Patient declines - Depression screen negative - Opioid screen negative - plan form discussed and given to patient. 2. 27 weeks gestation of ([facility]) - ICD9: V22.2, ICD10: Z3A.27 3. History of delivery, currently ([facility]) - ICD9: V23.89, ICD10: O09.899 4. Rh negative state in antepartum period ([facility]) - ICD9: 646.83, ICD10: O26.899, Z67.91 - RHO(D) IMMUNE GLOBULIN 1,500 UNIT (300 MCG)/2 ML INJECTION SYRINGE - THER/PROPH/DIAG INJ, SC/IM - Rh negative- Rhogam injection today, all questions answered 5. Sickle cell trait - ICD9: 282.5, ICD10: D57.3 6. Penicillin allergy - ICD9: V14.0, ICD10: Z88.0 - CONSULT TO PENICILLIN ALLERGY 7. Group beta Strep positive -GBS prophylaxis during labor PTL precautions reviewed and when to call RTO in 2 weeks documented in this encounterBl[facility]07-11-2025 NoteHNO ID: [id number] Author: IFEANYI MEDINA LPN Service: ? Author [...] Granger was given her Rhophylac pocket card. [facility] History of Present illness Narrative* Ifeanyi Medina LPN - 11/20/2024 1:00 PM EDT Marlon Granger 29 year old is here [...] her Rhophylac pocket card. Ifeanyi Medina LPN documented in this encounterBlanchard Valley [facility] System07-11-2025 Instructions* Patient Instructions* Ifeanyi Medina LPN - 11/20/2024 12:59 PM EDT SEQUENTIAL SCREENINGS The [facility] offers sequential screenings for women who are interested in screenings for chromosomal abnormalities and certain defects during a . The sequential screen combinesultrasound and blood tests to determine the risk of chromosomal abnormalities, including Down's Syndrome (Trisomy 21) and Trisomy 18, as well as open neural tube defects including spina bifida. Ultrasound examination is performed between 11 weeks and 13 weeks gestational age. Blood tests are drawn after the ultrasound and again later in the between 15 and 21 weeks gestational age. Please let your physician know if you are interested in this testing. It will require an appointment withour denture laboratory technician. This is not an ultrasound performed by a physician in our office during a routine visit. SIGNS AND SYMPTOMS OF LABOR 1. Contractions every 10 minutes or more often 2. Clear, pink, or brownish fluid (water) leaking from vagina 3. Feeling that baby is pushing down, pressure 4. Low, dull backache 5. Cramps that feel like a period 6. Cramps with or without diarrhea If you notice any of the above symptoms, contact our office at [phone] and ask to speak with anurse. After hours, you can call doctors registry at [phone] OR call [facility] at [phone] ask to have the doctor twenty one dealer paged. If you consider this an emergency, dial 6-5-2 or go to your nearest emergency department. NEED HELP? Are you dealing with a violent or abusive relationship? Are you a victim of rape or sexual assult? Call [facility] ([place]) 24 hour Crisis Hotline: 933.248.1528 or 490-366-5729. MANUAL Your Guide to a Healthy manual is now on-line. Visit [email or web address] to download your free copy documented in this encounterBlanchard Valley [facility] System06-16-2025 Telephone encounter Note * Telephone Encounter - Lili Bolaños RN - 10/26/2024 8:33 AM EDT 2nd risk assessment form submitted 10/26/24 Lili Bolaños RN [facility]06-16-2025 Miscellaneous Notes* Telephone Encounter - Lili Bolaños RN - 10/26/2024 8:33 AM EDT 2nd risk assessment form submitted 10/26/24 Lili Bolaños RN documented in this encounterBlanchard Valley Health System06-13-2025 Progress note* Quick Notes - James Zamora APRN.CNP - 10/23/2024 9:03 AM EDT EH - S: [place] is a 29 year old female who presents at 23w6d for a routine visit. Feeling movement. Denies headache, visual changes, chest pain, shortness of breath, vaginal bleeding, leakage of fluid, or dysuria. Having some leg cramps at night. O: See flow sheet Gen: No apparent distress Abd: Gravid, nontender, S=D ASSESSMENT/PLAN: 1. Supervision of high risk in second trimester ([facility]) - ICD9: V23.9, ICD10: O09.92 (primary diagnosis) - Continue PNV and LDA - Would like natural/water delivery, encouraged visit with furnace and wash equipment operator 2. 23 weeks gestation of ([facility]) - ICD9: V22.2, ICD10: Z3A.23 - GTT, CBC, RPR next visit - Anatomy ultrasound reviewed 3. History of delivery, currently ([facility]) - ICD9: V23.89, ICD10: O09.899 - CL screening timeline complete 4. Rh negative state in antepartum period ([facility]) - ICD9: 646.83, ICD10: O26.899, Z67.91 - Rhogam next visit 5. Sickle cell trait - ICD9: 282.5, ICD10: D57.3 - Genetic consult placed, partner declines testing. 6. Penicillin allergy - ICD9: V14.0, ICD10: Z88.0 - Penicillin allergy consult placed -- GBS+ with new OB culture so will need treatment during labor PTL precautions reviewed. RTO in 4 weeks or sooner as needed. James Zamora APRN.PUBLIC HEALTH EPIDEMIOLOGIST [facility]06-13-2025 Miscellaneous Notes* Quick Notes - James Zamora APRN.CNP - 10/23/2024 9:03 AM EDT EH - S: Marlon is a 29 year old female who presents at 23w6d for a routine visit. Feeling movement. Denies headache, visual changes, chest pain, shortness of breath, vaginal bleeding, leakage of fluid, or dysuria. Having some leg cramps at night. O: See flow sheet Gen: No apparent distress Abd: Gravid, nontender, S=D ASSESSMENT/PLAN: 1. Supervision of high risk in second trimester ([facility]) - ICD9: V23.9, ICD10: O09.92 (primary diagnosis) - Continue PNV and LDA - Would like natural/water delivery, encouraged visit with furnace and wash equipment operator 2. 23 weeks gestation of ([facility]) - ICD9: V22.2, ICD10: Z3A.23 - GTT, CBC, RPR next visit - Anatomy ultrasound reviewed 3. History of delivery, currently ([facility]) - ICD9: V23.89, ICD10: O09.899 - CL screening timeline complete 4. Rh negative state in antepartum period ([facility]) - ICD9: 646.83, ICD10: O26.899, Z67.91 - Rhogam next visit 5. Sickle cell trait - ICD9: 282.5, ICD10: D57.3 - Genetic consult placed, partner declines testing. 6. Penicillin allergy - ICD9: V14.0, ICD10: Z88.0 - Penicillin allergy consult placed -- GBS+ with new OB culture so will need treatment during labor PTL precautions reviewed. RTO in 4 weeks or sooner as needed. James Zamora APRN.CNP documented in this encounterBlanchard Valley [facility] System06-13-2025 Instructions* Patient Instructions* Minnie Jaeger MA - 10/23/2024 8:56 AM EDT SEQUENTIAL SCREENINGS The [facility] offers sequential screenings for women who are interested in screenings for chromosomal abnormalities and certain defects during a . The sequential screen combinesultrasound and blood tests to determine the risk of chromosomal abnormalities, including Down's Syndrome (Trisomy 21) and Trisomy 18, as well as open neural tube defects including spina bifida. Ultrasound examination is performed between 11 weeks and 13 weeks gestational age. Blood tests are drawn after the ultrasound and again later in the between 15 and 21 weeks gestational age. Please let your physician know if you are interested in this testing. It will require an appointment withour denture laboratory technician. This is not an ultrasound performed by a physician in our office during a routine visit. SIGNS AND SYMPTOMS OF LABOR 1. Contractions every 10 minutes or more often 2. Clear, pink, or brownish fluid (water) leaking from vagina 3. Feeling that baby is pushing down, pressure 4. Low, dull backache 5. Cramps that feel like a period 6. Cramps with or without diarrhea If you notice any of the above symptoms, contact our office at [phone] and ask to speak with anurse. After hours, you can call doctors registry at [phone] OR call [facility] at [phone] ask to have the doctor twenty one dealer paged. If you consider this an emergency, dial 91-4 or go to your nearest emergency department. NEED HELP? Are you dealing with a violent or abusive relationship? Are you a victim of rape or sexual assult? Call [facility] ([place]) 24 hour Crisis Hotline: 869.253.8626 or 872-852-5049. MANUAL Your Guide to a Healthy manual is now on-line. Visit [email or web address] to download your free copy documented in this encounterBlanchard Valley Health System05-16-2025 Progress note* Quick Notes - Grisel Shen MD - 09/25/2024 2:34 PM EDT S: [place] Tata Granger is a 29 year old female who presents at 02/13/2025, by Last Menstrual Period for a routine visit. Denies headache, visual changes, chest pain, shortness of breath, vaginal bleeding, leakage of fluid, or dysuria. Feeling well, no complaints. Complains O: See flow sheet Gen: No apparent distress Abd: Gravid, nontender SENSITIVE EXAMINATION CONSENT: The sensitive examination was discussed with the Patient or Patient's Authorized Automobile Tester. Asapplicable, any other physician, advance practice provider, medical student, or other health professional student that will be observing or involved in the sensitive examination for educational or training purposes was discussed with the Patient or Authorized Automobile Tester. The Patient or Authorized Automobile Tester has agreed to proceed with the sensitive examination. ASSESSMENT/PLAN: 1. Supervision of high risk in second trimester ([facility]) - ICD9: V23.9, ICD10: O09.92 (primary diagnosis) - SHANNAN/TRICHOMONAS NAAT - BACTERIAL VAGINOSIS NAAT 2. History of delivery - ICD9: V13.21, ICD10: Z87.51 CL normal 3. Sickle cell trait - ICD9: 282.5, ICD10: D57.3 4. 19 weeks gestation of ([facility]) - ICD9: V22.2, ICD10: Z3A.19 5. Vaginal itching - ICD9: 698.1, ICD10: N89.8 - SHANNAN/TRICHOMONAS NAAT - BACTERIAL VAGINOSIS NAAT Grisel Shen MD [facility]05-16-2025 Miscellaneous Notes* Quick Notes - Grisel Shen MD - 09/25/2024 2:34 PM EDT S: Marlon Granger is a 29 year old female who presents at 02/13/2025, by Last Menstrual Period for a routine visit. Denies headache, visual changes, chest pain, shortness of breath, vaginal bleeding, leakage of fluid, or dysuria. Feeling well, no complaints. Complains O: See flow sheet Gen: No apparent distress Abd: Gravid, nontender SENSITIVE EXAMINATION CONSENT: The sensitive examination was discussed with the Patient or Patient's Authorized Automobile Tester. Asapplicable, any other physician, advance practice provider, medical student, or other health professional student that will be observing or involved in the sensitive examination for educational or training purposes was discussed with the Patient or Authorized Automobile Tester. The Patient or Authorized Automobile Tester has agreed to proceed with the sensitive examination. ASSESSMENT/PLAN: 1. Supervision of high risk in second trimester ([facility]) - ICD9: V23.9, ICD10: O09.92 (primary diagnosis) - SHANNAN/TRICHOMONAS NAAT - BACTERIAL VAGINOSIS NAAT 2. History of delivery - ICD9: V13.21, ICD10: Z87.51 CL normal 3. Sickle cell trait - ICD9: 282.5, ICD10: D57.3 4. 19 weeks gestation of ([facility]) - ICD9: V22.2, ICD10: Z3A.19 5. Vaginal itching - ICD9: 698.1, ICD10: N89.8 - SHANNAN/TRICHOMONAS NAAT - BACTERIAL VAGINOSIS NAAT Grisel Shen MD documented in this encounterBlanchard Valley Health System05-16-2025 Instructions* Patient Instructions* Sudha Lugo MA - 09/25/2024 1:32 PM EDT SEQUENTIAL SCREENINGS The [facility] offers sequential screenings for women who are interested in screenings for chromosomal abnormalities and certain defects during a . The sequential screen combinesultrasound and blood tests to determine the risk of chromosomal abnormalities, including Down's Syndrome (Trisomy 21) and Trisomy 18, as well as open neural tube defects including spina bifida. Ultrasound examination is performed between 11 weeks and 13 weeks gestational age. Blood tests are drawn after the ultrasound and again later in the between 15 and 21 weeks gestational age. Please let your physician know if you are interested in this testing. It will require an appointment withour denture laboratory technician. This is not an ultrasound performed by a physician in our office during a routine visit. SIGNS AND SYMPTOMS OF LABOR 1. Contractions every 10 minutes or more often 2. Clear, pink, or brownish fluid (water) leaking from vagina 3. Feeling that baby is pushing down, pressure 4. Low, dull backache 5. Cramps that feel like a period 6. Cramps with or without diarrhea If you notice any of the above symptoms, contact our office at [phone] and ask to speak with anurse. After hours, you can call [facility] at [phone] OR call [facility] at [phone] ask to have the doctor twenty one dealer paged. If you consider this an emergency, dial 9--0 or go to your nearest emergency department. NEED HELP? Are you dealing with a violent or abusive relationship? Are you a victim of rape or sexual assult? Call [facility] ([place]) 24 hour Crisis Hotline: 336.133.6320 or 972-523-7165. MANUAL Your Guide to a Healthy manual is now on-line. Visit [email or web address] to download your free copy documented in this encounterBlanchard Valley Health System05-05-2025 Progress note* Quick Notes - Grisel Shen MD - 09/14/2024 10:57 AM EDT S: Marlon Granger is a 29 year old female who presents at 02/13/2025, by Last Menstrual Period for a routine visit. Denies headache, visual changes, chest pain, shortness of breath, vaginal bleeding, leakage of fluid, or dysuria. Feeling well, no complaints. O: See flow sheet Gen: No apparent distress Hx of PTD. Cervical length today. normal ASSESSMENT/PLAN: 1. 18 weeks gestation of ([facility]) - ICD9: V22.2, ICD10: Z3A.18 (primary diagnosis) 2. History of delivery - ICD9: V13.21, ICD10: Z87.51 CL 3. Sickle cell trait - ICD9: 282.5, ICD10: D57.3 4. Supervision of high risk in second trimester ([facility]) - ICD9: V23.9, ICD10: O09.92 Grisel Shen MD [facility]05-05-2025 Miscellaneous Notes* Quick Notes - Grisel Shen MD - 09/14/2024 10:57 AM EDT S: Marlon Granger is a 29 year old female who presents at 02/13/2025, by Last Menstrual Period for a routine visit. Denies headache, visual changes, chest pain, shortness of breath, vaginal bleeding, leakage of fluid, or dysuria. Feeling well, no complaints. O: See flow sheet Gen: No apparent distress Hx of PTD. Cervical length today. normal ASSESSMENT/PLAN: 1. 18 weeks gestation of ([facility]) - ICD9: V22.2, ICD10: Z3A.18 (primary diagnosis) 2. History of delivery - ICD9: V13.21, ICD10: Z87.51 CL 3. Sickle cell trait - ICD9: 282.5, ICD10: D57.3 4. Supervision of high risk in second trimester ([facility]) - ICD9: V23.9, ICD10: O09.92 Grisel Shen MD documented in this encounterBlanchard Valley Health System05-05-2025 Instructions* Patient Instructions* Ольга Shafer MA - 09/14/2024 10:34 AM EDT SEQUENTIAL SCREENINGS The [facility] offers sequential screenings for women who are interested in screenings for chromosomal abnormalities and certain defects during a . The sequential screen combinesultrasound and blood tests to determine the risk of chromosomal abnormalities, including Down's Syndrome (Trisomy 21) and Trisomy 18, as well as open neural tube defects including spina bifida. Ultrasound examination is performed between 11 weeks and 13 weeks gestational age. Blood tests are drawn after the ultrasound and again later in the between 15 and 21 weeks gestational age. Please let your physician know if you are interested in this testing. It will require an appointment withour denture laboratory technician. This is not an ultrasound performed by a physician in our office during a routine visit. SIGNS AND SYMPTOMS OF LABOR 1. Contractions every 10 minutes or more often 2. Clear, pink, or brownish fluid (water) leaking from vagina 3. Feeling that baby is pushing down, pressure 4. Low, dull backache 5. Cramps that feel like a period 6. Cramps with or without diarrhea If you notice any of the above symptoms, contact our office at [phone] and ask to speak with anurse. After hours, you can call doctors registry at [phone] OR call [facility] at [phone] ask to have the doctor twenty one dealer paged. If you consider this an emergency, dial [phone] or go to your nearest emergency department. NEED HELP? Are you dealing with a violent or abusive relationship? Are you a victim of rape or sexual assult? Call [facility] ([place]) 24 hour Crisis Hotline: 214.380.6961 or 560-829-5444. MANUAL Your Guide to a Healthy manual is now on-line. Visit [email or web address] to download your free copy documented in this encounterBlanchard Valley Health System04-21-2025 Progress note* Result Encounter Note - Marlene Cruz MD - 08/31/2024 2:08 PM EDT Anatomy ultrasound reviewed. No abnormalities identified. Follow up as clinically indicated. Pleaseplace copy in ob chart. Marlene Cruz MD [facility] Work Phone: 1(922) 415-564704-21-2025 Miscellaneous Notes* Result Encounter Note - Marlene Cruz MD - 08/31/2024 2:08 PM EDT Anatomy ultrasound reviewed. No abnormalities identified. Follow up as clinically indicated. Pleaseplace copy in ob chart. Marlene Cruz MD documented in this encounterBlanchard Valley Health System04-21-2025 Progress note* Quick Notes - Jose Soto MD - 08/31/2024 12:00 PM EDT SW- Round ligament pain and sciatica nerve pain. No abdominal pain, vb, lof PE: Gen- NAD, well appearing Abd- ND See flowsheet A/p 16 wk gestation - H/o PTD: Cervical length q 2 weeks ordered - Anatomy US ordered - Discussed LDA and she declines - Questions answered about sickle cell trait. Recommend that partner get tested. She states he is refusing testing, but she will ask his mother/family as she thinks he might also have sickle cell trait. She will notify the office - RTO 2 wks Jose Soto DO [facility]04-21-2025 Miscellaneous Notes* Quick Notes - Jose Soto MD - 08/31/2024 12:00 PM EDT SW- Round ligament pain and sciatica nerve pain. No abdominal pain, vb, lof PE: Gen- NAD, well appearing Abd- ND See flowsheet A/p 16 wk gestation - H/o PTD: Cervical length q 2 weeks ordered - Anatomy US ordered - Discussed LDA and she declines - Questions answered about sickle cell trait. Recommend that partner get tested. She states he is refusing testing, but she will ask his mother/family as she thinks he might also have sickle cell trait. She will notify the office - RTO 2 wks Jose Soto DO documented in this encounterBlanchard Valley Health System04-21-2025 Instructions* Patient Instructions* Nuvia Bolden MA - 08/31/2024 11:46 AM EDT SEQUENTIAL SCREENINGS The [facility] offers sequential screenings for women who are interested in screenings for chromosomal abnormalities and certain defects during a . The sequential screen combinesultrasound and blood tests to determine the risk of chromosomal abnormalities, including Down's Syndrome (Trisomy 21) and Trisomy 18, as well as open neural tube defects including spina bifida. Ultrasound examination is performed between 11 weeks and 13 weeks gestational age. Blood tests are drawn after the ultrasound and again later in the between 15 and 21 weeks gestational age. Please let your physician know if you are interested in this testing. It will require an appointment withour denture laboratory technician. This is not an ultrasound performed by a physician in our office during a routine visit. SIGNS AND SYMPTOMS OF LABOR 1. Contractions every 10 minutes or more often 2. Clear, pink, or brownish fluid (water) leaking from vagina 3. Feeling that baby is pushing down, pressure 4. Low, dull backache 5. Cramps that feel like a period 6. Cramps with or without diarrhea If you notice any of the above symptoms, contact our office at [phone] and ask to speak with anurse. After hours, you can call doctors registry at [phone] OR call [facility] at [phone] ask to have the doctor twenty one dealer paged. If you consider this an emergency, dial 9-1- or go to your nearest emergency department. NEED HELP? Are you dealing with a violent or abusive relationship? Are you a victim of rape or sexual assult? Call [facility] ([place]) 24 hour Crisis Hotline: 430.249.9803 or 150-698-6357. MANUAL Your Guide to a Healthy manual is now on-line. Visit [email or web address] to download your free copy documented in this encounterBl[facility]03-21-2025 Progress note* Quick Notes - Geo Marie MD - 07/31/2024 11:04 AM EDT KJ - S: [place] denies LOF, contractions or vaginal bleeding. O: 11w6d, see flow sheet SENSITIVE EXAM: Sensitive exam not performed. A/P: Assessment & Plan Encounter for supervision of high risk in first trimester, antepartum Orders: [id number] PLUS; Future History of labor Orders: OBSTETRIC ULTRASOUND WHI; Future PNB today Geo Marie MD [facility]03-21-2025 Miscellaneous Notes* Quick Notes - Geo Marie MD - 07/31/2024 11:04 AM EDT KJ - S: [place] denies LOF, contractions or vaginal bleeding. O: 11w6d, see flow sheet SENSITIVE EXAM: Sensitive exam not performed. A/P: Assessment & Plan Encounter for supervision of high risk in first trimester, antepartum Orders: [id number] PLUS; Future History of labor Orders: OBSTETRIC ULTRASOUND WHI; Future PNB today Geo Marie MD documented in this encounterBlanchard Valley [facility] System03-21-2025 Instructions* Patient Instructions* Telmasamantha KellyLILIANA - 07/31/2024 10:04 AM EDT SEQUENTIAL SCREENINGS The [facility] offers sequential screenings for women who are interested in screenings for chromosomal abnormalities and certain defects during a . The sequential screen combinesultrasound and blood tests to determine the risk of chromosomal abnormalities, including Down's Syndrome (Trisomy 21) and Trisomy 18, as well as open neural tube defects including spina bifida. Ultrasound examination is performed between 11 weeks and 13 weeks gestational age. Blood tests are drawn after the ultrasound and again later in the between 15 and 21 weeks gestational age. Please let your physician know if you are interested in this testing. It will require an appointment withour denture laboratory technician. This is not an ultrasound performed by a physician in our office during a routine visit. SIGNS AND SYMPTOMS OF LABOR 1. Contractions every 10 minutes or more often 2. Clear, pink, or brownish fluid (water) leaking from vagina 3. Feeling that baby is pushing down, pressure 4. Low, dull backache 5. Cramps that feel like a period 6. Cramps with or without diarrhea If you notice any of the above symptoms, contact our office at [phone] and ask to speak with anurse. After hours, you can call doctors registry at [phone] OR call [facility] at [phone] ask to have the doctor twenty one dealer paged. If you consider this an emergency, dial 8- or go to your nearest emergency department. NEED HELP? Are you dealing with a violent or abusive relationship? Are you a victim of rape or sexual assult? Call [facility] ([place]) 24 hour Crisis Hotline: 114.334.2600 or 773-933-9250. MANUAL Your Guide to a Healthy manual is now on-line. Visit [email or web address] to download your free copy documented in this encounterBlanchard [facility] System03-11-2025 Telephone encounter Note * Telephone Encounter - Grisel Shen MD - 07/21/2024 4:12 PM EDT Agree with advice [facility] Work Phone: [phone]) 731-500403-11-2025 Miscellaneous Notes* Telephone Encounter - Grisel Shen MD - 07/21/2024 4:12 PM EDT Agree with advice * Telephone Encounter - Jailyn Trotter RN - 07/21/2024 3:08 PM EDT 10w3d Pt calling stating last week she [...] the nearest Emergency Room. Advised Pt to avoidsexual intercourse or placing anything in vagina until this dissipates and advised to stay hydrated. Informed Pt message would be sent to o/c provider and if additional guidance is needed, we would let her know, but otherwise to continue to monitor at this time. Jailyn Trotter RN documented in this encounterBlanchard Valley [facility] System03-11-2025 Telephone encounter Note * Telephone Encounter - Jailyn Trotter RN - 07/21/2024 3:08 PM EDT 10w3d Pt calling stating last week she [...] the nearest Emergency Room. Advised Pt to avoidsexual intercourse or placing anything in vagina until this dissipates and advised to stay hydrated. Informed Pt message would be sent to o/c provider and if additional guidance is needed, we would let her know, but otherwise to continue to monitor at this time. Jailyn Trotter RN [facility]02-18-2025 Telephone encounter Note* Telephone Encounter - Lili Bolaños RN - 06/30/2024 10:49 AM EST 1st risk assessment form submitted 06/30/24 Lili Bolaños RN [facility]02-18-2025 Miscellaneous Notes* Telephone Encounter - Lili Bolaños RN - 06/30/2024 10:49 AM EST 1st risk assessment form submitted 06/30/24 Lili Bolaños RN documented in this encounterBlanchard Valley [facility] System02-17-2025 Telephone encounter Note * Telephone Encounter - Jailyn Trotter RN - 06/29/2024 2:22 PM EST Pt agreeable to Clindamycin vaginal cream. [facility] andMetronidazole be cancelled. Jailyn Trotter RN [facility]02-17-2025 Miscellaneous Notes* Telephone Encounter - Jailyn Trotter RN - 06/29/2024 2:22 PM EST Pt agreeable to Clindamycin vaginal cream. Asking [facility] to [facility] andMetronidazole be cancelled. Jailyn Trotter RN * Result Encounter Note - James Zamora APRN.CNP - 06/29/2024 2:11 PM EST Can trial Clindamycin cream vaginally - recommended over oral for treatment of BV James Zamora APRN.COLLEEN * Telephone Encounter - Jailyn Trotter RN - 06/29/2024 2:04 PM EST Pt notified and voiced understanding. Pt states she gets thrush in her mouth and vaginal yeast infections with metronidazole. Pt asking if Clindamycin is able to be prescribed and if this is safe in ? Please advise. Jailyn Trotter RN * Telephone Encounter - Nuvia Spence RN - 06/29/2024 1:27 PM EST Pt called and is notified of providers results and instructions. Pt voices understanding. Pt was asking if it was safe to take the Flagyl when . Please call and advise. Nuvia Spence RN * Telephone Encounter - Jailyn Trotter RN - 06/29/2024 12:16 PM EST Left message informing Pt calling with results and mychart message would be sent and to call officeif she has any questions. Jailyn Trotter RN * Telephone Encounter - James Zamora APRN.CNP - 06/29/2024 7:26 AM EST Please notify patient: + yeast - recommend Monistat 7 for 7 nights vaginally + BV - rx for Flagyl sent James Zamora APRN.CNP documented in this encounterBlanchard Valley Health System02-17-2025 Progress note* Result Encounter Note - James Zamora APRN.CNP - 06/29/2024 2:11 PM EST Can trial Clindamycin cream vaginally - recommended over oral for treatment of BV James Zamora APRN.COLLEEN [facility]02-17-20[facility] Telephone encounter Note* Telephone Encounter - Jailyn Trotter RN - 06/29/2024 2:04 PM EST Pt notified and voiced understanding. Pt states she gets thrush in her mouth and vaginal yeast infections with metronidazole. Pt asking if Clindamycin is able to be prescribed and if this is safe in ? Please advise. Jailyn Trotter RN [facility]02-17-20[facility] Telephone encounter Note* Telephone Encounter - Nuvia Spence RN - 06/29/2024 1:27 PM EST Pt called and is notified of providers results and instructions. Pt voices understanding. Pt was asking if it was safe to take the Flagyl when . Please call and advise. Nuvia Spence RN [facility]02-17-[facility] Telephone encounter Note* Telephone Encounter - Jailyn Trotter RN - 06/29/2024 12:16 PM EST Left message informing Pt calling with results and mychart message would be sent and to call officeif she has any questions. Jailyn Trotter RN [facility]02-17-[facility] Telephone encounter Note* Telephone Encounter - James Zamora APRN.CNP - 06/29/2024 7:26 AM EST Please notify patient: + yeast - recommend Monistat 7 for 7 nights vaginally + BV - rx for Flagyl sent James Zamora APRN.CNP [facility]02-14-2025 Instructions* Patient Instructions* James Zamora APRN.CNP - 06/26/2024 9:33 AM EST Please select the following link to access the [facility] Your Guide to a Healthy . [email or web address] MORNING SICKNESS IN by Priyanka Ramirez M.D. for [employer] As you may already know, morning sickness can often be more appropriately called evening sickness or tysny-zutemy-or-the-day sickness. While there are the glenys few, most women (50-90%) experience some degree of nausea, some have vomiting, and a few develop a severe form of vomiting duringpregnancy called hyperemesis gravidarum. What causes the nausea and vomiting of ? We can't explain why some people feel fine and others are green for months. Even the same woman mayfeel vastly different in each . There is some relationship between nausea and the level ofthe hormone hCG. In twin pregnancies, and in other situations where the hCG is greater than expected, nausea and vomiting tend to be worse. In a destined for miscarriage, hCG levels tend to be low, and nausea is often less severe. This being said, a lack of nausea doesn't guarantee that the is destined for miscarriage. The fact that nausea and vomiting are often signs of a healthy can offer a silver lining in the dark cloud of miserable nausea. How long will the nausea last? Fortunately, for most women, nausea and vomiting are a first trimester event, peaking at week 9-10 and waning by week 14-16. When you are feeling bad the weeks can go by slowly but most momsdo feel tremendously better by the middle of the . Whether morning sickness is a brief experience or lasts through most of the , there are treatments that can make the weeks or months more tolerable. What can you do about it? Diet: See what works for you. Try eating bland dry foods, and avoid fatty or spicy foods. It is okay to eat a less than perfectly balanced diet in the first trimester. Have your liquids separately from dry foods. Try sports drinks, water, clear juices, Yoan-aid, or non-caffeinated tea. Avoid carbonated beverages that fill up your stomach. Try eating lots of little meals. If you tend to feel sick when you first wake up, leave crackers next to the bed for a quick snack before rising. Keeping healthy snacks with you all day to nibble when you feel queasy can sometimes even prevent nausea from starting. vitamins and nausea: Pre- vitamins can sometimes worsen nausea in . While folate is necessary, especially early in the , it comes as a smaller pill that many people find more tolerable than the complete vitamin pill. Ask your practitioner if it is okay to temporarilyreplace vitamins and iron with just a folate pill if you find a significant worsening in the level of your nausea from the vitamins. Alternative therapies: Acupressure may be used to treat nausea in , and is not known to have any risks for the fetus. Wristbands (marketed for seasickness) that put pressure on an acupressure point at the wrist are often available at drugstores or travel stores. Vishnu root is used for nausea in many traditional cultures. Some women take fresh grated vishnu or vishnu tablets. It is possible that the pill form contains other ingredients or contaminants, so you may want to try fresh vishnu first. Medications: Emetrol is the only nausea medication approved for use in . It is available over the counter and is soothing to the stomach. A prescription medication called Bendectin was available in the 1970s-1979's and was shown to be safe in , but the company stopped marketing it in the [place] due to the costs of liability coverage. Bendectin contained 10 milligrams of vitamin B6 and 10 milligrams of Doxylamine. Two tablets were given at bedtime and a total of up to 4 tablets could be used in a 24-hour period. Interestingly, Unisom , which contains a higher dose (25 mg.) of the same medication, Doxylamine, is currently marketed as an cnge-lpz-vaadrbc sleeping pill. Ask your practitioner if creating a vitamin B6/Doxylaminecombination with ogch-rsu-vugrhjk medications would be safe for you. Prescription medications like Compazine and Phenergan can be used if the benefits outweigh possiblerisks, but these have not been clearly shown to be safe in . Zofran , an expensive anti-nausea medication often used to treat nausea from chemotherapy, can also be used. Can I throw up so much it harms the baby? The act of vomiting cannot hurt your fetus, which is protected inside the uterus. If you get dehydrated or develop a metabolic imbalance, this can be unhealthy. As long as you can keep down liquids, you and your baby will generally do all right. Eat when you feel able. If you are unable to keep anyt shayan down, or if you notice potential signs of dehydration such as lightheadedness, or concentratedand/or infrequent urination, call your practitioner. Some women need brief hospital admission for intravenous fluids and anti-nausea medications if their condition becomes severe. This severe form ofnausea and vomiting is called Hyperemesis Gravidarum. As with many symptoms of , remind yourself that this, too, shall pass, and you'll have a wonderful baby to show for it! TREATMENT OPTIONS, SHORT VERSION: Frequent small meals Hydrate throughout day [employer]ands wrist pressure point applicators Vishnu root (powdered, in capsules) 250mg four times a day Vitamin B6 25 mg tablet three times a day Also may be taken with half a tablet of Unisom three times a day (Doxylamine 12.5 mg) If severe (weight loss, dehydration), call us and come in for IV hydration and possible medication in the form of injections. Prescription medications such as Phenergan, Compazine, Reglan documented in this encounterBlanchard Valley [facility] System02-14-2025 NoteHNO ID: [id number] Author: JAMES ZAMORA APRN.COLLEEN Service: ? Author Type: Nurse Practitioner Type: [...] pre-existing diabetes: No No results found for: "ABORHD" No weight on file for this encounter. [...] the following (please check all that apply)? 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 Yes How many pregnancies have you had before? 1 Did you have a previous baby with a GBS Infection? No Please select all that apply for any prior : N/A MEDICAL/PSYCHOSOCIAL HISTORY: History of hemorrhage or bleeding concerns: No Thyroid Disease: No History of chronic hypertension: No History of pre-existing diabetes: No No results found for: "ABORHD" No weight on file for this encounter. [...] the following (please check all that apply)? Type Caster care Social History: Do you have any [...] felt little interest or pleasure in doing things? 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 As applicable, any other physician, advance practice provider, medical student, or other health professional student that will be observing or involved in the sensitive examination for educational or training purposes was discussed with the Patient or Authorized Automobile Tester. The Patient or Authorized Automobile Tester has agreed to proceed with the sensitive examination. (Sensitive examination includes inspection and/or palpation of the breasts, pelvis, prostate and anorectal regions). PHYSICAL EXAM: BP 118/62 Ht 5' 4" (1.63m) Wt 117 lb (53.1kg) LMP 05/09/2024 BMI 20.07 kg/(m^2). GENERAL: pleasant in no apparent distress DERMATOLOGY: [...] intrauterine and positive cardiac activity SBIRT Marlon Tata Granger was given the 4P's screening tool. Marlon answered as follows: OB Opioid Screening - [...] to rescreen early third trimester. James Zamora APRN.PUBLIC HEALTH EPIDEMIOLOGIST ASSESSMENT: 29 year old at Unknown wks gestational age PLAN: 1) Patient oriented to practice. Patient given new OB orientation folder. Discussed nutrition, folic acid supplementation, dietary guidelines, exercise, smoking, alcohol, caffeine, and drug use. Discussed gestational weight gain guidelines. Discussed routine OB labs including STD/HIV. Discussed how to access Your guide to a health and the Sole Rounding Machine Operator. Discussed hemoglobin electrophoresis. Patient: Accepts Patient has penicillin allergy, plan for allergy testing. Reviewed midwifery and door to door lead generation services that are available. 2) Screening: Hemoglobin [...] aneuploidy screening was provided. The patient chooses toproceed with First trimester early anatomy ultrasound (12-13w6d) [...] [] RSV vaccine 32 0/7 - 36 6/7 (Jan - Jun) [] declined [] COVID [...] (28-30 weeks): [] Consent [] Contraception [] Air Brake Rigger [] TeamBirth handout Third trimester (36-40 weeks): [] GBS [] Presentation - [] Scheduled [] yes - Hibiclens, pre-op instructions, CBC, T&S ordered [] no [] H&P Current With History of Pre-Term Labor in [...] 12w0d and 13w6d gestation. James Zamora APRN.CNP documented in this encounterBlanchard Valley Health System02-12-2025 Telephone encounter Note * Telephone Encounter - Dasia Ugarte RN - 06/24/2024 4:05 PM EST Patient notified of results. Patient verbalizes understanding. Dasia Ugarte RN [facility]02-12-2025 Miscellaneous Notes* Telephone Encounter - Dasia Ugarte RN - 06/24/2024 4:05 PM EST Patient notified of results. Patient verbalizes understanding. Dasia Ugarte RN documented in this encounterBlanchard Valley Health System02-07-2025 Telephone encounter Note * Telephone Encounter - Kate Song RN - 06/19/2024 10:28 AM EST Patient notified and voiced understanding of below. Patient states she is going to try the Monistat7. Kate Song RN [facility]02-07-2025 Miscellaneous Notes* Telephone Encounter - Kate Song RN - 06/19/2024 10:28 AM EST Patient notified and voiced understanding of below. Patient states she is going to try the Monistat7. Kate Song RN * Telephone Encounter - Jose Soto MD - 06/19/2024 10:04 AM EST Monistat or Miconazole cream is the recommended treatment in . Oral Diflucan is an alterative but not recommended in due to possible risk. If symptoms are not bothersome for her, there is no increased risk to with a yeast infection, and could wait until 2nd trimester todo oral Diflucan. I am not familiar with this patient and have not evaluated her. Please schedule her for a problem visit or virtual visit to discuss this further thanks * Telephone Encounter - Kate Song RN - 06/19/2024 9:02 AM EST Patient notified and voiced understanding of below information. Patient states she is allergic to Monistat. Patient states she has increased swelling in vaginal area when she uses it. What do you suggest? Kate Song RN * Telephone Encounter - Jose Soto MD - 06/18/2024 5:17 PM EST Typically recommend Monistat 7 in for yeast infection. Lotrisone cream has a steroid in it, and would not recommend using it unless she had a lot of inflammation on exam. Urgent care note just reported white vaginal discharge, so recommendation would be Monistat 7 and call if symptoms worsen or do not improve * Telephone Encounter - Grisel Humphries RN - 06/18/2024 4:54 PM EST Patient seen at [facility] yesterday. LMP 12/28. Approximately 5w5d. She was advised by her pharmacist to call our office regarding the Lotrisone cream in . Patient states this was sent infor a yeast infection. She did not know she was until she was seen yesterday. Please advise. Patient aware that with the office closing she won't hear back from us until tomorrow. Grisel Humphries RN documented in this encounterBlanchard Valley Health System02-07-2025 Telephone encounter Note * Telephone Encounter - Jose Soto MD - 06/19/2024 10:04 AM EST Monistat or Miconazole cream is the recommended treatment in . Oral Diflucan is an alterative but not recommended in due to possible risk. If symptoms are not bothersome for her, there is no increased risk to with a yeast infection, and could wait until 2nd trimester todo oral Diflucan. I am not familiar with this patient and have not evaluated her. Please schedule her for a problem visit or virtual visit to discuss this further thanks [facility] Work Phone: 1(236) 158-114602-07-2025 Telephone encounter Note* Telephone Encounter - Kate Song RN - 06/19/2024 9:02 AM EST Patient notified and voiced understanding of below information. Patient states she is allergic to Monistat. Patient states she has increased swelling in vaginal area when she uses it. What do you suggest? Kate Song RN [facility]02-07-2025 Telephone encounter Note* Telephone Encounter - Jennifer Carpenter MA - 06/19/2024 8:52 AM EST Lab has been called and they are running the susceptibility. Jennifer Carpenter MA [facility]02-07-2025 Miscellaneous Notes* Telephone Encounter - Jennifer Carpenter MA - 06/19/2024 8:52 AM EST Lab has been called and they are running the susceptibility. Jennifer Carpenter MA * Telephone Encounter - Ghislaine Laguna PA - 06/19/2024 7:12 AM EST Please call lab and have them do susceptibility testing. documented in this encounterBlanchard Valley Health System02-07-2025 Telephone encounter Note * Telephone Encounter - Ghislaine Laguna PA - 06/19/2024 7:12 AM EST Please call lab and have them do susceptibility testing. [facility]02-06-2025 Telephone encounter Note* Telephone Encounter - Jose Soto MD - 06/18/2024 5:17 PM EST Typically recommend Monistat 7 in for yeast infection. Lotrisone cream has a steroid in it, and would not recommend using it unless she had a lot of inflammation on exam. Urgent care note just reported white vaginal discharge, so recommendation would be Monistat 7 and call if symptoms worsen or do not improve [facility]02-06-[facility] Telephone encounter Note* Telephone Encounter - Grisel Humphries, CHICHO - 06/18/2024 4:54 PM EST Patient seen at [facility] yesterday. LMP 05/09. Approximately 5w5d. She was advised by her pharmacist to call our office regarding the Lotrisone cream in . Patient states this was sent infor a yeast infection. She did not know she was until she was seen yesterday. Please advise. Patient aware that with the office closing she won't hear back from us until tomorrow. Grisel Humphries, RN [facility]02-06-2025 Telephone encounter Note* Telephone Encounter - Malachi Mitchell LPN - 06/18/2024 9:19 AM EST Pt reviewed her results on my chart 2/6 @6 am Malachi Mitchell LPN [facility]02-06-2025 Miscellaneous Notes* Telephone Encounter - Malachi Mitchell LPN - 06/18/2024 9:19 AM EST Pt reviewed her results on my chart 2/6 @6 am Malachi Mitchell LPN * Telephone Encounter - Ghislaine Laguna PA - 06/18/2024 7:11 AM EST Please contact patient and let her know her yeast swab came back positive. It appears she has side effects with Monistat. I have sent clotrimazole topical to pharmacy to try instead. If she is unableto tolerate this, she needs to follow- up with her concert manager. We are unable to do oral medicationdue to her being . documented in this encounterBlanchard Valley Health System02-06-2025 Telephone encounter Note * Telephone Encounter - Ghislaine Laguna PA - 06/18/2024 7:11 AM EST Please contact patient and let her know her yeast swab came back positive. It appears she has side effects with Monistat. I have sent clotrimazole topical to pharmacy to try instead. If she is unableto tolerate this, she needs to follow- up with her concert manager. We are unable to do oral medicationdue to her being . [facility]02-05-2025 Note* Addendum Note - Joann Marie APRN.CNP - 06/17/2024 4:13 PM ESTAddended by: JOANN MARIE on: 06/17/2024 04:13 PM Modules accepted: Orders [facility]02-05-2025 Miscellaneous Notes* Addendum Note - Joann Marie APRN.COLLEEN - 06/17/2024 4:13 PM ESTAddended by: JOANN MARIE on: 06/17/2024 04:13 PM Modules accepted: Orders documented in this encounter[address]05-2025 NoteHNO ID: [id number] Author: JOANN MARIE APRN.PUBLIC HEALTH EPIDEMIOLOGIST Service: ? Author Type: Nurse Practitioner Type: [...] nondistended Vaginal discharge noted, white in color. Computer Applications Instructor present. PAST MEDICAL HISTORY Diagnosis Date NEGATIVE [...] was instructed to get set up with SPOT FACER Participation of a fellow, resident, medical student, or advanced practice provider student in performing the sensitive examination was discussed with the patient or authorized community health program representative. The patient or authorized community health program representative has agreed to proceed with the sensitive examination. (Sensitive examination includes inspection and/or palpation of the breasts, pelvis, prostate and anorectal regions) Prescription instructions reviewed with patient as applicable. Potential red flag symptoms discussed with the patient. Reviewed appropriate action plan to take if red flag symptoms occur. Patient agreeable to treatment plan. Joann Marie APRN.[facility]02-05-2025 History of Present illness Narrative* Joann Marie APRN.[facility] - 06/17/2024 3:46 PM EST CC: Patient presents with: Vaginal Discharge: Possible [...] EXAM: BP 100/68 Pulse 118 Temp 36.8 C (98.3 F) Resp 21 Wt 54.9 kg (121 lb 0.5 oz) LMP 04/07/2024 (Approximate) SpO2 99% General: Well appearing and alert CV: Regular rate and rhythm without obvious murmur Lungs: clear to auscultation bilaterally Back: straight and symmetric Abdomen: soft, nontender, nondistended Vaginal discharge noted, white in color. Computer Applications Instructor present. PAST MEDICAL HISTORY Diagnosis Date NEGATIVE [...] was instructed to get set up with SPOT FACER Participation of a fellow, resident, medical student, or advanced practice provider student in performing the sensitive examination was discussed with the patient or authorized community health program representative. The patient or authorized community health program representative has agreed to proceed with the sensitive examination. (Sensitive examination includes inspection and/or palpation of the breasts, pelvis, prostate and anorectal regions) Prescription instructions reviewed with patient as applicable. Potential red flag symptoms discussed with the patient. Reviewed appropriate action plan to take if red flag symptoms occur. Patient agreeable to treatment plan. Joann Marie APRN.PUBLIC HEALTH EPIDEMIOLOGIST documented in this encounterBlanchard Valley Health System12-26-2024 NoteHNO ID: [id number] Author: JAMES ZAMORA APRN.PUBLIC HEALTH EPIDEMIOLOGIST Service: ? 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 Marlon Granger is a 29 year old [...] L1 SAB0 IAB0 Ectopic0 Multiple0 Live Births0 Tiller Worker History LMP: 03/04/2024 (Approximate) Age at Menarche: Age at First : Age at Menopause: Tiller Worker History Comments: Sexual Activity: Yes; Male Contraception: [...] Assessed 04/03/2024 REVIEW OF SYSTEMS Expanded ROS: SPOT FACER: + vaginal itching, discharge Allergies and current medication updated:Yes SENSITIVE EXAM: The sensitive examination was discussed with the Patient or Patient's Authorized Automobile Tester. As applicable, any other physician, advance practice provider, medical student, or other health professional student that will be observing or involved in the sensitive examination for educational or training purposes was discussed with the Patient or Authorized Automobile Tester. The Patient or Authorized Automobile Tester has agreed to proceed with the sensitive examination. (Sensitive examination includes inspection and/or palpation of the breasts, pelvis, prostate and anorectal regions). EXAM: BP 118/74 Wt 121 lb 6.4 oz (55.1kg) LMP 04/07/2024 GENERAL: pleasant, female in no apparent distress HEENT: Normocephalic, atraumatic, mucus membranes moist, and no lesions CHEST: Normal inspiratory effort PELVIC: external genitalia normal, normal Bartholin's glands, urethra, [place]'s glands, no vulvar lesions, no cervical lesions, [...] Zamora APRN.COLLEEN Medical Decision Making: Problems: Low: Acute, uncomplicated illness or injury Data: Unique test(s) ordered: 3+ Risk: Low: Low risk from testing/treatment Moderate: Drug management Medical Decision Making Level: 4 - [facility] History of Present illness Narrative* James Zamora APRN.COLLEEN - 05/07/2024 8:59 AM EST 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 Marlon Granger is a 29 year old female who presents for problem visit vaginal irritation and discharge for 2 week(s). HPI: Marlon is here for irritation and discharge. Thinks she may have a yeast infection. Took Diflucan 2 days ago and symptoms improved, but still having some itching. She reports that she had thickwhite clumpy discharge a couple of days ago that has now resolved. 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 She is concerned that she may still be positive for ureaplasma and would like tested today. OB History T0 L1 SAB0 IAB0 Ectopic0 Multiple0 Live Births0 Tiller Worker History LMP: 03/04/2024 (Approximate) Age at Menarche: Age at First : Age at Menopause: Tiller Worker History Comments: Sexual Activity: Yes; Male Contraception: [...] Vaginal Gel Use 1 Applicatorful vaginally two timesa week. After finishing Clindamycin treatment. No current facility-administered medications for this visit. Allergies As of Date: 05/07/2024 Allergen Noted Reaction MOXIFLOXACIN 04/20/2024 Intolerance PENICILLINS 06/07/2020 Other: See Comments Fully Assessed 04/03/2024 REVIEW OF SYSTEMS Expanded ROS: SPOT FACER: + vaginal itching, discharge Allergies and current medication updated:Yes SENSITIVE EXAM: The sensitive examination was discussed with the Patient or Patient's Authorized Automobile Tester. As applicable, any other physician, advance practice provider, medical student, or other health professional student that will be observing or involved in the sensitive examination for educational or training purposes was discussed with the Patient or Authorized Automobile Tester. The Patient or Authorized Automobile Tester has agreed to proceed with the sensitive examination. (Sensitive examination includes inspection and/or palpation of the breasts, pelvis, prostate and anorectal regions). EXAM: BP 118/74 Wt 121 lb 6.4 oz (55.1kg) LMP 04/07/2024 GENERAL: pleasant, female in no apparent distress HEENT: Normocephalic, atraumatic, mucus membranes moist, and no lesions CHEST: Normal inspiratory effort PELVIC: external genitalia normal, normal Bartholin's glands, urethra, [place]'s glands, no vulvar lesions, no cervical lesions, [...] annual or sooner as needed. James Zamora APRN.PUBLIC HEALTH EPIDEMIOLOGIST Medical Decision Making: Problems: Low: Acute, uncomplicated illness or injury Data: Unique test(s) ordered: 3+ Risk: Low: Low risk from testing/treatment Moderate: Drug management Medical Decision Making Level: 4 - Moderate documented in this encounterBlanchard Valley [facility]12-16-2024 Telephone encounter Note * Telephone Encounter - Jailyn Trotter RN - 04/27/2024 12:07 PM EST Appt scheduled 05/07/24 with . Jailyn Trotter RN [facility]12-16-2024 Miscellaneous Notes* Telephone Encounter - Jailyn Trotter RN - 04/27/2024 12:07 PM EST Appt scheduled 05/07/24 with . Jailyn Trotter RN * Telephone Encounter - James Zamora APRN.CNP - 04/27/2024 11:55 AM EST Needs appointment. James Zamora APRN.CNP * Telephone Encounter - Jailyn Trotter RN - 04/27/2024 9:45 AM EST Pt wanting to know if she can be rechecked for urealyticum. Partner has been tested and currently taking antibiotic treatment. Pt states she needs another yeast pill. Plans to get probiotic and take Flagyl as advised as well. Please advise. Jailyn Trotter RN documented in this encounterBlanchard Valley Health System12-16-2024 Telephone encounter Note * Telephone Encounter - James Zamora APRN.CNP - 04/27/2024 11:55 AM EST Needs appointment. James Zamora APRN.CNP [facility]12-16-2024 Telephone encounter Note* Telephone Encounter - Jailyn Trotter RN - 04/27/2024 9:45 AM EST Pt wanting to know if she can be rechecked for urealyticum. Partner has been tested and currently taking antibiotic treatment. Pt states she needs another yeast pill. Plans to get probiotic and take Flagyl as advised as well. Please advise. Jailyn Trotter RN [facility]12-09-2024 Telephone encounter Note* Telephone Encounter - Nancy Haile RN - 04/20/2024 10:59 AM EST Patient notified. Nancy Haile RN The following approved medication requests have [...] JAMES ZAMORA Pharmacy Information Pharmacy Address Telephone [address] [address] [facility]12-09-2024 Miscellaneous Notes* Telephone Encounter - Nancy Haile RN - 04/20/2024 10:59 AM EST Patient notified. Nancy Haile RN The following approved medication requests have [...] JAMES ZAMORA Pharmacy Information Pharmacy Address Telephone [address] [place] [address] * Telephone Encounter - James Zamora APRN.CNP - 04/20/2024 10:48 AM EST D/C Moxifloxacin. Take Azithromycin 1 g orally x 1. Then 500 mg orally once daily for 3 days. James Zamora APRN.CNP * Telephone Encounter - Nancy Haile RN - 04/20/2024 10:29 AM EST Patient calling regarding symptoms she had since starting Moxifloxacin. She took her 2nd dose of itand then experienced what felt like numbness over entire body. [place] like she couldn't move and feltlike she was in a daze. Feeling slightly better right now. 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 She doesn't know if she was so exhaustedthat it made her feel that way or if could be related to the medication? Advised if she is still feeling numb she needs to go to ER or call PCP. Please advise. Nancy Haile RN documented in this encounterBlanchard Valley [facility] System12-09-2024 Telephone encounter Note * Telephone Encounter - James Zamora APRN.CNP - 04/20/2024 10:48 AM EST D/C Moxifloxacin. Take Azithromycin 1 g orally x 1. Then 500 mg orally once daily for 3 days. James Zamora APRN.CNP [facility]12-09-2024 Telephone encounter Note* Telephone Encounter - aNncy Haile RN - 04/20/2024 10:29 AM EST Patient calling regarding symptoms she had since starting Moxifloxacin. She took her 2nd dose of itand then experienced what felt like numbness over entire body. [place] like she couldn't move and feltlike she was in a daze. Feeling slightly better right now. 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 She doesn't know if she was so exhaustedthat it made her feel that way or if could be related to the medication? Advised if she is still feeling numb she needs to go to ER or call PCP. Please advise. Nancy Haile RN [facility]11-27-2024 Telephone encounter Note* Telephone Encounter - Jailyn Trotter RN - 04/08/2024 3:48 PM EST Reviewed with patient as Balandrast message was not viewed. Pt voiced understanding. Jailyn Trotter RN [facility]11-27-2024 Miscellaneous Notes* Telephone Encounter - Jailyn Trotter RN - 04/08/2024 3:48 PM EST Reviewed with patient as IDINCUhart message was not viewed. Pt voiced understanding. Jailyn Trotter RN documented in this encounterBlanchard Valley Health System11-22-2024 Instructions* Patient Instructions* James Zamora APRN.COLLEEN - 04/03/2024 7:59 AM EST Images from the original note were not included. *Revaree is a NAMS recommended, leading selling vaginal insert for the relief of symptoms of vaginal atrophy and the caodaism of the vagina's epithelial lining and pH -- hormone free. In [id number] clinical trials, Revaree performed as well as estrogen creams in reducing symptoms of vaginal atrophy (dryness, itching, painful intercourse, and burning). The Revaree insert is convenient and notmessy and should be used 2 to 3 times a week. Revaree is professionally recommended, easily orderedby the patient, costs about $40 per month, and shipped directly to the patient's home. Revaree is aperfect choice for women who need relief and either cannot or do not want to use hormonal therapy for their vaginal atrophy symptoms. *Clairvee is the only oral probiotic that has been proven to target the vagina's microbiome, restoring lactobacilli, and thus reducing the recurrence of BV and yeast. Rigorous clinical trials show that Clairvee significantly reduces these annoying recurrences while balancing the vagina's microbiomeand pH. Clairvee should be taken orally each [...] Relizen is a great choice for women whostruggle with hot flashes and either cannot or do not want to use hormone therapy. documented in this encounterBlanchard Valley Health System11-22-2024 NoteHNO ID: [id number] Author: JAMES ZAMORA APRN.COLLEEN Service: ? Author Type: Nurse Practitioner Type: [...] OB History No obstetric history on file. 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 As applicable, any other physician, advance practice provider, medical student, or other health professional student that will be observing or involved in the sensitive examination for educational or training purposes was discussed with the Patient or Authorized Automobile Tester. The Patient or Authorized Automobile Tester has agreed to proceed with the sensitive examination. (Sensitive examination includes inspection and/or palpation of the breasts, pelvis, prostate and anorectal regions). EXAM: BP 110/62 Wt 120 lb (54.4kg) LMP 03/04/2024 GENERAL: pleasant, female in no apparent distress HEENT: Normocephalic, atraumatic, mucus membranes moist, and no lesions CHEST: Normal inspiratory effort PELVIC: external genitalia normal, normal Bartholin's glands, urethra, [place]'s glands, no vulvar lesions, no cervical lesions, [...] annual or sooner as needed. James Zamora APRN.PUBLIC HEALTH EPIDEMIOLOGIST Medical Decision Making: Problems: Low: Stable chronic illness Data: Unique test result(s) reviewed: 3+ Unique test(s) ordered: 3+ Risk: Low: Low risk from testing/treatment Moderate: Drug management Medical Decision Making Level: 4 - [facility]erateDun[facility]11-22-2024 History of Present illness Narrative* James Zamora APRN.PUBLIC HEALTH EPIDEMIOLOGIST - 04/03/2024 7:23 AM EST Marlon Granger is a 29 year old [...] not been able to find the brand thatwas helpful. Notes BV symptoms the most around her period -- vaginal odor, sometimes discharge. Using pads - states they are organic. Noticed these symptoms started with this type of pad use. Uses Dial soap and Dove sensitive. OB History No obstetric history on file. 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 As applicable, any other physician, advance practice provider, medical student, or other health professional student that will be observing or involved in the sensitive examination for educational or training purposes was discussed with the Patient or Authorized Automobile Tester. The Patient or Authorized Automobile Tester has agreed to proceed with the sensitive examination. (Sensitive examination includes inspection and/or palpation of the breasts, pelvis, prostate and anorectal regions). EXAM: BP 110/62 Wt 120 lb (54.4kg) LMP 03/04/2024 GENERAL: pleasant, female in no apparent distress HEENT: Normocephalic, atraumatic, mucus membranes moist, and no lesions CHEST: Normal inspiratory effort PELVIC: external genitalia normal, normal Bartholin's glands, urethra, [place]'s glands, no vulvar lesions, no cervical lesions, [...] Medical Decision Making Level: 4 - Moderate documented in this encounterBlanchard Valley [facility] System10-05-2024 Telephone encounter Note * Telephone Encounter - Malachi Mitchell LPN - 02/15/2024 9:16 AM EDT Patient given results and verbalized understanding of instructions given. Malachi Mitchell LPN [facility]10-05-2024 Miscellaneous Notes* Telephone Encounter - Malachi Mitchell LPN - 02/15/2024 9:16 AM EDT Patient given results and verbalized understanding of instructions given. Malachi Mitchell LPN * Telephone Encounter - Bhavna Cota APRN.CNP - 02/15/2024 8:25 AM EDT Please advise patient the test was positive for BV and yeast. I have sent vaginal clindamycin to the pharmacy for BV and diflucan for yeast. She may also use vaginal boric acid suppositories which can be found at the pharmacy. Test was negative for trichomonas, chlamydia, and gonorrhea. Bhavna Cota APRN.CNP documented in this encounterBlanchard Valley Health System10-05-2024 Telephone encounter Note * Telephone Encounter - Bhavna Cota APRN.CNP - 02/15/2024 8:25 AM EDT Please advise patient the test was positive for BV and yeast. I have sent vaginal clindamycin to the pharmacy for BV and diflucan for yeast. She may also use vaginal boric acid suppositories which can be found at the pharmacy. Test was negative for trichomonas, chlamydia, and gonorrhea. Bhavna Cota APRN.CNP [facility]10-04-2024 History of Present illness Narrative* Ghislaine Laguna PA - 02/14/2024 11:13 AM EDT This note was created using Eyebrid Blazeriter. Subjective [place] Tata Granger is a 28 year old female. HPI 28-year-old female presents for vaginal itching and discharge x 1 week. Patient was seen here on 01/26 for vaginal odor. She tested positive for BV at that time. She used MetroGel with improvementin the vaginal odor. However, she is now [...] Objective BP 126/85 Pulse 90 Temp 36.6 C (97.9 F) Resp 20 Wt 52 kg (114 lb [...] detail warranting prompt ER evaluation. SRIDHAR Denis documented in this encounterBlanchard Valley Health System09-17-2024 Telephone encounter Note * Telephone Encounter - Rivka Stevens MA - 01/28/2024 7:35 AM EDT Patient given results and verbalized understanding of instructions given. Rivka Stevens MA [facility]09-17-2024 Miscellaneous Notes* Telephone Encounter - Rivka Stevens MA - 01/28/2024 7:35 AM EDT Patient given results and verbalized understanding of instructions given. Rivka Stevens MA * Telephone Encounter - Ghislaine Laguna PA - 01/28/2024 7:11 AM EDT Please let patient know she tested positive for BV. I sent metrogel to pharmacy. GC/chlamydia, trichomonas negative,. documented in this encounterBlanchard Valley Health System09-17-2024 Telephone encounter Note * Telephone Encounter - Ghislaine Laguna PA - 01/28/2024 7:11 AM EDT Please let patient know she tested positive for BV. I sent metrogel to pharmacy. GC/chlamydia, trichomonas negative,. [facility]09-[facility] History of Present illness Narrative* Ghislaine Laguna PA - 01/27/2024 10:52 AM EDT This note was created using Eyebrid Blazeriter. Subjective [place] Tata Granger is a 28 year old female. HPI 28-year-old female presents for vaginal odor. Patient states she has had vaginal odor for the past 2 days. She has a little bit of discharge. No abdominal pain or pelvic pain. No dysuria, hematuria, fevers, vomiting or diarrhea. No concern for . She would like tested for STDs. LMP was the end of December. She states she has had BV in the past and the smell is similar. No other complaint. No past medical history [...] Negative for chest pain. Gastrointestinal: Negative for diarrhea and vomiting. Genitourinary: Positive for vaginal discharge. Negative for vaginal bleeding and vaginal pain. + Vaginal odor Objective BP 118/76 Pulse 96 Temp 36.6 C (97.8 F) Resp 16 Wt 53 kg (116 lb 13.5 oz) LMP 10/02/2023 SpO2 99% Physical Exam Vitals and nursing note reviewed. [...] soft. Tenderness: There is no abdominal tenderness. There is no guarding or rebound. Genitourinary: Comments: Deferred by patient, prefers to self swab. Skin: General: Skin is warm and dry. Neurological: Mental Status: She is alert. Assessment and Plan ASSESSMENT/PLAN: 1. Vaginal odor - ICD9: 625.8, ICD10: N89.8 - SHANNAN/TRICHOMONAS NAAT - BACTERIAL VAGINOSIS NAAT - GONORRHEA/CHLAMYDIA NAAT -Declines syphilis, HIV/hepatitis testing. -Please treat based on results. If patient positive for BV, does prefer MetroGel rather than oral medication. -No concern for Diagnosis and treatment plan were discussed and questions were answered to the patient's satisfaction. Pt acknowledged understanding of concepts and follow up plan. Specific signs and symptoms that would indicate the need for higher level of care were discussed in detail warranting prompt ER evaluation. SRIDHAR Denis documented in this encounterBlanchard Valley Health System06-20-2024 Telephone encounter Note * Telephone Encounter - Ilda Choudhary MA - 10/31/2023 8:45 AM EDT Spoke with [facility] retail pharmacy, [facility] stated that patient has picked up medication prescribed. Stillunable to reach patient with results and she still has not viewed them on MyChart. Ilad Choudhary MA [facility]06-20-2024 Miscellaneous Notes* Telephone Encounter - Ilda Choudhary MA - 10/31/2023 8:45 AM EDT Spoke with [facility] retail pharmacy, [facility] stated that patient has picked up medication prescribed. Stillunable to reach patient with results and she still has not viewed them on MyChart. Ilda Choudhary MA * Telephone Encounter - Malachi Mitchell LPN - 10/29/2023 8:41 AM EDT Unable to leave message. Malachi Mitchell LPN * Telephone Encounter - Suze Jimenes - 10/28/2023 8:44 AM EDT Left message for patient to call back and ask to speak to a triage nurse for results. Suze Jimenes * Telephone Encounter - Jennifer Carpenter MA - 10/26/2023 9:27 AM EDT Left message for pt to call back. Jennifer Carpenter MA * Telephone Encounter - Ghislaine Laguna PA - 10/26/2023 8:06 AM EDT These let patient know she has positive for bacterial vaginosis. I sent metronidazole to pharmacy. Do not drink alcohol while taking this medication documented in this encounterBlanchard Valley Health System06-18-2024 Telephone encounter Note * Telephone Encounter - Malachi Mitchell LPN - 10/29/2023 8:41 AM EDT Unable to leave message. Malachi Mitchell LPN [facility]06-17-[facility]24 Telephone encounter Note* Telephone Encounter - Suze Jimenes - 10/28/2023 8:44 AM EDT Left message for patient to call back and ask to speak to a triage nurse for results. Suze Jimenes [facility]06-15-2024 Telephone encounter Note* Telephone Encounter - Jennifer Carpenter MA - 10/26/2023 9:27 AM EDT Left message for pt to call back. Jennifer Carpenter MA [facility]06-15-2024 Telephone encounter Note* Telephone Encounter - Ghislaine Laguna PA - 10/26/2023 8:06 AM EDT These let patient know she has positive for bacterial vaginosis. I sent metronidazole to pharmacy. Do not drink alcohol while taking this medication [facility]06[facility]14[facility] History of Present illness Narrative* Joann Marie APRN.PUBLIC HEALTH EPIDEMIOLOGIST - 10/25/2023 11:06 AM EDT CC: Patient presents with: STD: And urine problems x2 weeks Has had unprotected sex and history of BV as well. Patient says she usually gets BV after her periods. HPI [place] Tata Granger is a 28 year old female who presents with complaint of possible UTI. These symptoms have been present for 14 days. Associated symptoms: frequency and vaginal odor Denies: fever, chills, sweats, abdominal pain, and flank pain Treatments: nothing The ROS was otherwise negative. PMH, Medications, labs, allergies, and recent past visits with PCP were reviewed and updated as able. PHYSICAL EXAM: BP 100/58 Pulse 113 Temp 36.1 C (97 F) Resp 18 Wt 50 kg (110 lb 3.7 oz) LMP 10/02/2023 SpO2 98% General: Well appearing and alert CV: Regular rate and rhythm without obvious murmur Lungs: clear to auscultation bilaterally Back: straight and symmetric Abdomen: soft, nontender, nondistended exam: Computer Applications Instructor was present thick white discharge was noted. No other abnormal findings. No past medical history on file. No past surgical history on file. ALLERGIES Penicillins MEDICATIONS ACIDOPHILUS cap (Patient not taking: Reported on 11/19/2022) No family history on file. Social History Tobacco Use Smoking status: Every Day Types: Cigarettes Smokeless tobacco: Never Substance Use Topics Alcohol use: Yes Comment: social Drug use: Never ASSESSMENT/PLAN: 1. Urinary frequency - ICD9: 788.41, ICD10: R35.0 (primary diagnosis) - UA DIP, URINE (POC) - URINE CULTURE 2. Vaginal odor - ICD9: 625.8, ICD10: N89.8 - BACTERIAL VAGINOSIS NAAT - SHANNAN/TRICHOMONAS NAAT - GONORRHEA/CHLAMYDIA NAAT No medication at this time if anything is positive please treat accordingly and please contact the grandmother as patient phone is currently turned off. Potential red flag symptoms discussed with the patient. Reviewed appropriate action plan to take ifred flag symptoms occur. Patient agreeable to treatment plan. Joann Marie APRN.COLLEEN documented in this encounterBl[facility]04-[facility] History of Present illness Narrative* Wendy Mayorga APRN.CNP - 08/30/2023 11:42 AM EDT This note was created using Eyebrid Blazeriter. Subjective [place] Tata Granger is a 28 year old female. 28 year old female with no significant PMH presents for " want a second opinion" Acute onset She followed up with her PCP through [facility] after being seen here on 08/10/23 At that time she was diagnosed with urea mycoplasma (she brings the test) I wanted to make sure that I am being treated appropriately She states that she was seen here on 09/10/23 and " they didn't say I had this" At that time our clinic had treated her for BV . She states that she was provided an ATB by her PCP for the urea mycoplasma, she cannot recall name. She has not started taking as of yet She brings in lab results Denies sx presently " that is why I want to make sure" . The history is provided by the patient and a friend. No fractionation supervisor was used. Female Gu Problem This is a recurrent problem. The current episode started 1 to 2 weeks ago. The problem occurs continuously. Progression since onset: waxing and waning. The patient is experiencing no pain. Nothing relieves the symptoms. Nothing aggravates the symptoms. Pertinent negatives include no chest pain, no anorexia, no chills, no fever, no abdominal pain, no diarrhea, no nausea, no vomiting, no dysuria, no frequency, no hematuria, no pelvic pain, no urgency, no vaginal bleeding, no vaginal discharge, novaginal pain, no headaches, no sore throat, no back pain, no flank pain, no cough, no shortness of breath and no dyspareunia. There has been no history of trauma. Urine output has been normal. She isnot . Her past medical history is significant for STD and UTI. There were no sick contacts.Recently, medical care has been given at this facility and by the PCP. Services received include medications given and tests performed. No past medical history on file. No [...] for chills and fever. HENT: Negative for sore throat. Respiratory: Negative for cough and shortness of breath. Cardiovascular: Negative for chest pain. Gastrointestinal: Negative for abdominal pain, anorexia, diarrhea, nausea and vomiting. Genitourinary: Negative for dyspareunia, dysuria, flank pain, frequency, hematuria, pelvic pain, urgency, vaginal bleeding, vaginal discharge and vaginal pain. Musculoskeletal: Negative for back pain. Allergic/Immunologic: Negative for environmental allergies, food allergies and immunocompromised state. Neurological: Negative for dizziness, facial asymmetry and headaches. Objective BP 120/66 Pulse 99 Temp 36.3 C (97.3 F) Resp 16 Wt 50.6 kg (111 lb 8.8 oz) LMP 07/26/2023 SpO2 99% Physical Exam Vitals and nursing note reviewed. [...] or rebound. Hernia: No hernia is present. Musculoskeletal: General: No swelling, tenderness, deformity or signs of injury. Normal range of motion. Cervical back: Normal range of motion and neck supple. No rigidity. Right lower leg: No edema. Left lower leg: No edema. Lymphadenopathy: Cervical: No cervical adenopathy. Skin: General: Skin is warm and dry. Capillary Refill: Capillary refill takes less than 2 seconds. Coloration: Skin is not jaundiced or pale. [...] Judgment normal. Assessment and Plan ASSESSMENT/PLAN: 1. Mycoplasma infection - ICD9: 041.81, ICD10: A49.3 Seen here 08/09 and dx BV Treated She followed up with her PCP Who found her to be + mycoplasma She came here " make sure" with lab report in hand. Discussed with patient that the lab report is POSITIVE for mycoplasma, We did not test her for same and she should take the medicine her PCP prescribed. EMR shows 7 days of Doxy and 7 days of Flagyl sent in by her PCP Patient will peanut picker today and start. She was directed to follow up with her PCP as well. Wendy Mayorga APRN.COLLEEN documented in this encounterBlanchard Valley [facility] System10-12-2023 Miscellaneous Notes* Telephone Encounter - Malachi Mitchell LPN - 02/21/2023 7:05 PM EDT Patient given results and verbalized understanding of instructions given. Malachi Mitchell LPN * Telephone Encounter - Joann Marie APRN.CNP - 02/21/2023 7:02 PM EDT Negative for chlamydia and gonorrhea please notify. documented in this encounterBlanchard Valley Health System10-11-2023 Miscellaneous Notes* Telephone Encounter - Rivka Stevens - 02/20/2023 2:38 PM EDT Patient given results and verbalized understanding of instructions given. Rivka Hilda * Telephone Encounter - Joann Marie APRN.CNP - 02/20/2023 2:24 PM EDT Positive for yeast. Negative for BV and trichomonas. Patient's chlamydia and gonorrhea swabs were not ran we need a new specimen if patient wants them ran. Did place a new order for vaginal swab. documented in this encounterBlanchard Valley [facility] System10-11-2023 Miscellaneous Notes* Telephone Encounter - Sadie Morales LPN - 02/20/2023 8:13 AM EDT Patient notified.Sadie Morales LPN * Telephone Encounter - Madeline Doyle APRN.CNP - 02/20/2023 7:12 AM EDT Please notify vaginal cultures positive for yeast, which diflucan should treat, negative for BV. GC/Chlamydia still pending will notify when back Madeline Doyle APRN.CNP documented in this [facility]10-10-[facility] History of Present illness Narrative* Wendy Mayorga APRN.CNP - 02/19/2023 3:09 PM EDT This note was created using NoteWriter. Subjective [place] Tata Granger is a 27 year old female. 27 year old female with PMH presents for vaginal complaints. Acute onset 2 weeks ago +vaginal discharge. +white and chunky +itching She was seen at her PCP office through [facility] for this, States that she has history of yeast infections after her menses. Endorses that swabs were obtained, but she was never notified of results. States that she took Flagyl, but symptoms remain. Denies vaginal bleeding. LMP-01/30-02/06 Denies abdominal pain. Denies N/V/D Denies skin rash or lesions. Denies sx The history is provided by the patient. No fractionation supervisor was used. Vaginal Problem This is a [...] visual change, vomiting or weakness. Nothing aggravates thesymptoms. Treatments tried: flagyl. The treatment provided no [...] results to guide additional treatment. F/U with FOLLOW UP MANAGER for continued symptoms. - SHANNAN/TRICHOMONAS NAAT - BACTERIAL VAGINOSIS NAAT - GONORRHEA/CHLAMYDIA NAAT Wendy Mayorga APRN.PUBLIC HEALTH EPIDEMIOLOGIST documented in this encounterBlanchard Valley Health System08-26-2023 History of Present illness Narrative* Madeline Doyle APRN.COLLEEN - 01/05/2023 9:47 AM EDT Subjective The history is provided by the patient. No fractionation supervisor was used. HPI [place] Tata Granger is a 27 year old female who presents today for CC of being diagnosed with BV by Dr. France at [facility] yesterday and was sent in clindamycin. Patient [...] have confirmed and edited as necessary, the [facility] Review of Systems Constitutional: Negative for chills [...] for higher level of care were discussed indetail warranting prompt ER evaluation. Madeline Doyle APRN.COLLEEN documented in this encounterBlanchard Valley Health System07-11-2023 Miscellaneous Notes* Telephone Encounter - Lynnette Izaguirre RN - 11/20/2022 8:56 AM EDT Patient returned call and given provider's message below with verbalized understanding. * Telephone Encounter - Sadie Morales LPN - 11/20/2022 8:53 AM EDT Left message for patient to return call for results and recommendations.Sadie Morales LPN * Telephone Encounter - Sadie Morales LPN - 11/20/2022 8:53 AM EDT ----- Message from Bhavna Cota APRN.PUBLIC HEALTH EPIDEMIOLOGIST sent at 11/20/2022 7:16 AM EDT ----- Please advise patient all the vaginal tests were negative. She should follow up with FOLLOW UP MANAGER if symptoms continue. documented in this encounterBlanchard Valley Health System07-10-2023 History of Present illness Narrative* Madeline Doyle APRN.COLLEEN - 11/19/2022 3:18 PM EDT Subjective The history is provided by the patient. No fractionation supervisor was used. HPI [place] Tata Granger is [...] have confirmed and edited as necessary, the [facility] Review of Systems Constitutional: Negative for chills and fever. Gastrointestinal: Negative for abdominal pain. Genitourinary: Negative for dysuria, flank pain, frequency, hematuria and urgency. Vaginal discharge Objective Physical Exam Vitals and nursing note reviewed. Exam conducted with a lockstitch tunnel elastic operator present. Constitutional: Appearance: Normal appearance. Abdominal: General: [...] treat based on results Follow up with SPOT FACER as needed - BACTERIAL VAGINOSIS NAAT - SHANNAN/TRICHOMONAS NAAT - GONORRHEA/CHLAMYDIA NAAT Diagnosis and treatment plan were discussed and questions were answered to the patient's satisfaction. Pt acknowledged understanding of concepts and follow up plan. Specific signs and symptoms that would indicate the need for higher level of care were discussed indetail warranting prompt ER evaluation. Madeline Doyle APRN.COLLEEN documented in this encounterBlanchard Valley [facility] System05-04-2023 NotePap Smear Specimen AdequacyMay 2022 3:10pmComment.Satisfactory for evaluation. Endocervical and/or squamous metaplasticcells (endocervical component)are present.[facility] INTERFACED A#[id number] Grant Medical CenterComment on above:Satisfactory for evaluation. Endocervical and/or squamous metaplasticcells (endocervical component)are present.09-02-2022 Miscellaneous Notes* Telephone Encounter - Liz Ocampo RN - 09/02/2022 9:35 AM EDT Patient calling with request for Medication information. Patient denies any new or worsening symptoms of which a provider is not aware: Yes. Patient inquiring about side effects of Doxycycline. Information obtained from [facility] and reviewed with patient. Patient verbalizes understanding. Reason for Disposition General information question, no triage required and triager able to answer question Protocols used: Information Only Call - No [id number] documented in this encounterBlanchard Valley Health System04-15-2023 Miscellaneous Notes* Telephone Encounter - Ilda Choudhary MA - 08/25/2022 11:34 AM EDT Patient notified of results, verbalized understanding of instructions given. Ilda Choudhary MA * Telephone Encounter - Bhavna Cota APRN.CNP - 08/25/2022 11:00 AM EDT Please advise patient she tested positive for BV. Rx for flagyl sent to pharmacy. She needs to take this in addition to the doxycycline for chlamydia. She should avoid alcohol while on the flagyl. Bhavna Cota APRN.CNP documented in this encounterBlanchard Valley Health System04-15-2023 Miscellaneous Notes* Telephone Encounter - Rivka Stevens - 08/25/2022 10:26 AM EDT Patient given results and verbalized understanding of instructions given. Rivka Stevens * Telephone Encounter - Wendy Mayorga APRN.CNP - 08/25/2022 8:14 AM EDT Patient tested positive for chlamydia. Negative for gonorrhea. Doxcyline was called into [facility] No sex for 2 weeks Partners must be tested. There are pending labs presently and we will reach out when those result. Please advise patient documented in this encounterBlanchard Valley Health System04-14-2023 History of Present illness Narrative* Mirian Freeman PA-C - 08/24/2022 5:39 PM EDT This note was created using Eyebrid Blazeriter. Subjective [place] Tata Granger is a 27 [...] SCRN - HEP B SURF AG SCRN Mirian Freeman PA-C documented in this encounterBlanchard Valley Health System03-23-2022 NotePap Smear Specimen AdequacyMarch 2021 12:00pmCommentSatisfactory for evaluation. Endocervical and/or squamous metaplasticcells (endocervical component)are present.[facility] INTERFACED A#[id number] Grant Medical Center Work Phone: Comment on above:Satisfactory for evaluation. Endocervical and/or squamous metaplasticcells (endocervical component)are present.05-12-2021 Hospital Discharge instructions Patient Education 05/12/2021 15:29:50 Dental Pain [...] or cold beverages. It can also be worsewhen you bite on hard foods. Pain may spread from the tooth to your ear or the area of the jaw on the same side. Home care Follow these tips when caring for yourself at home: Don't have hot and cold foods and drinks. Your tooth may be sensitive to changes in temperature. Use toothpaste made for sensitive teeth. Porter gently up and down instead of sideways. Brushing sideways can wear away root surfaces if they are exposed. If your tooth is chipped or cracked, or if there is a large open cavity, put oil of cloves directlyon the tooth to relieve pain. You can buy oil of cloves at drugstores. Some pharmacies carry an avsc-fnv-jlxanoc "toothache kit." This contains a paste that you can put on the exposed tooth to make it less sensitive. Put a cold pack on your jaw over the sore area to help reduce pain. You may use bjke-cin-uopiipr medicine to ease pain, unless your doctor prescribed another medicine.If you have chronic liver or kidney disease, [...] healthcare provider Pus drains from the tooth [phone] [employer] [address] [place] [address], [place] [address]. All rights reserved. This information is not intended as a substitute for professional medical care. Always follow yourhealthcare professional's instructions. Follow Up Care 05/12/2021 14:56:53 With:Your Dentist Address: When: Unknown Comments:Call Saturday [facility] Evaluation + Plan note No data available for this section [facility] Evaluation noteNo assessment information available [facility] Work Phone: Evaluation note* Diagnosis Exposure to STD- Primary Contact with or exposure to other communicable diseases documented in this encounter [facility] note* Diagnosis BV (bacterial vaginosis)- Primary Vaginitis and vulvovaginitis, unspecified documented in this encounter [facility] note* Diagnosis Acute vaginitis- Primary Vaginitis and vulvovaginitis, unspecified documented in this encounter [facility] note* Diagnosis Vaginal discharge- Primary Leukorrhea, not specified as infective documented in this encounter [facility] note* Diagnosis Vaginal discomfort- Primary Unspecified symptom associated with female genital organs documented in this encounter [facility] note* Diagnosis Mycoplasma infection- Primary Mycoplasma infection in conditions classified elsewhere and of unspecified site documented in this encounter [facility] note* Diagnosis Urinary frequency- Primary Vaginal odor Unspecified symptom associated with female genital organs documented in this encounter [facility] note* Diagnosis Vaginal odor- Primary Unspecified symptom associated with female genital organs documented in this encounter [facility] note* Diagnosis Vaginal discharge- Primary Leukorrhea, not specified as infective documented in this encounter [facility] note* Diagnosis BV (bacterial vaginosis)- Primary Vaginitis and vulvovaginitis, unspecified Vaginal yeast infection Candidiasis of vulva and vagina documented in this encounter [facility] note* Diagnosis Bacterial vaginosis- Primary Vaginitis and vulvovaginitis, unspecified Vaginal discharge Leukorrhea, not specified as infective Urinary frequency documented in this encounter [facility] note* Diagnosis Vaginal itching- Primary Pruritus of genital organs Vaginal discharge Leukorrhea, not specified as infective documented in this encounter [facility] note* Diagnosis Vaginal discharge- Primary Leukorrhea, not specified as infective Missed menses Absence of menstruation documented in this encounter [facility] note* Diagnosis Encounter for supervision of high risk in first trimester, antepartum- Primary 6 weeks gestation of state, incidental with uncertain dates in first trimester Screening for malignant neoplasm of cervix Screening for malignant neoplasm of the cervix Screening for STD (sexually transmitted disease) Screening examination for venereal disease Vaginal itching Pruritus of genital organs History of delivery, currently with history of pre-term labor Current with history of pre-term labor in first trimester Penicillin allergy Personal history of allergy to penicillin documented in this encounter [facility] note* Diagnosis Yeast vaginitis- Primary Candidiasis of vulva and vagina Bacterial vaginosis Vaginitis and vulvovaginitis, unspecified documented in this encounter [facility] note* Diagnosis Encounter for supervision of high risk in first trimester, antepartum- Primary History of labor Personal history of pre-term labor * Assessment & Plan Note - Geo Marie MD - 07/31/2024 11:05 AM EDTAssociated Problem(s): Encounter for supervision of high risk in first trimester, antepartum Orders: [id number] PLUS; Future documented in this encounter [facility] note* Diagnosis Encounter for screening for malformation using ultrasound- Primary Encounter for supervision of high risk in first trimester, antepartum 6 weeks gestation of state, incidental Encounter for supervision of high risk in first trimester, antepartum- Primary History of labor Personal history of pre-term labor documented in this encounter [facility] note* Diagnosis Encounter for supervision of high risk in first trimester, antepartum (HCC)- Primary History of labor Personal history of pre-term labor History of delivery, currently (HCC)- Primary with history of pre-term labor 16 weeks gestation of ([facility]) state, incidental documented in this encounter [facility] note* Diagnosis Encounter for supervision of high risk in first trimester, antepartum (HCC)- Primary History of labor Personal history of pre-term labor Encounter for supervision of high risk in first trimester, antepartum (HCC)- Primary 16 weeks gestation of (HCC) state, incidental History of delivery documented in this encounter [facility] note* Diagnosis History of delivery- Primary 18 weeks gestation of ([facility]) state, incidental documented in this encounter [facility]Eval[facility]* Diagnosis Supervision of high risk in second trimester ([facility])- Primary Unspecified high-risk 18 weeks gestation of ([facility]) state, incidental History of delivery Sickle cell trait Sickle-cell trait Penicillin allergy Personal history of allergy to penicillin documented in this encounter [facility]* Diagnosis Supervision of high risk in second trimester ([facility])- Primary Unspecified high-risk History of delivery Sickle cell trait Sickle-cell trait 19 weeks gestation of ([facility]) state, incidental Vaginal itching Pruritus of genital organs documented in this encounter [facility]* Diagnosis Encounter for anatomic survey ([facility])- Primary Encounter for anatomic survey 19 weeks gestation of ([facility]) state, incidental documented in this encounter [facility] [place]* Diagnosis Supervision of high risk in second trimester ([facility])- Primary Unspecified high-risk 23 weeks gestation of ([facility]) state, incidental History of delivery, currently ([facility]) with history of pre-term labor Rh negative state in antepartum period ([facility]) Rhesus isoimmunization affecting management of mother, antepartum condition Sickle cell trait Sickle-cell trait Penicillin allergy Personal history of allergy to penicillin Screening for diabetes mellitus documented in this encounter [facility]* Diagnosis Supervision of high risk in second trimester ([facility])- Primary Unspecified high-risk 27 weeks gestation of ([facility]) state, incidental History of delivery, currently ([facility]) with history of pre-term labor Rh negative state in antepartum period ([facility]) Rhesus isoimmunization affecting management of mother, antepartum condition Sickle cell trait Sickle-cell trait Penicillin allergy Personal history of allergy to penicillin Group beta Strep positive documented in this encounter [facility]* Diagnosis Anemia complicating , third trimester ([facility])- Primary documented in this encounter [facility]* Diagnosis Supervision of high risk in third trimester ([facility])- Primary Unspecified high-risk 29 weeks gestation of ([facility]) state, incidental Anemia complicating , third trimester ([facility]) History of delivery, currently ([facility]) with history of pre-term labor Group beta Strep positive Penicillin allergy Personal history of allergy to penicillin Vulvar lesion Other specified noninflammatory disorder of vulva and perineum documented in this encounter [facility]* Diagnosis 33 weeks gestation of (HCC)- Primary state, incidental Supervision of high risk in third trimester (HCC) Unspecified high-risk Vaginal discharge Leukorrhea, not specified as infective documented in this encounter [facility]* Diagnosis 35 weeks gestation of (HCC)- Primary state, incidental Supervision of high risk in third trimester (HCC) Unspecified high-risk Anemia complicating , third trimester (HCC) * Assessment & Plan Note - Geo Marie MD - 01/15/2025 3:00 PM EDTAssociated Problem(s): Supervision of high risk in third trimester (HCC) Orders: URINE OB DIP B/O documented in this encounter [facility] note* Diagnosis 35 weeks gestation of (HCC)- Primary state, incidental Supervision of high risk in third trimester (HCC) Unspecified high-risk Anemia complicating , third trimester (HCC) Supervision of high risk in third trimester (HCC)- Primary Unspecified high-risk Anemia complicating , third trimester (HCC) 36 weeks gestation of (HCC) state, incidental Nausea/vomiting in (HCC) Unspecified vomiting of , unspecified as to episode of care Acute vaginitis Vaginitis and vulvovaginitis, unspecified [facility] this encounter [facility] Diagnosis 35 weeks gestation of (HCC)- Primary state, incidental Supervision of high risk in third trimester (HCC) Unspecified high-risk Anemia complicating , third trimester (HCC) Anemia complicating , third trimester (HCC)- Primary 37 weeks gestation of (HCC) state, incidental Supervision of high risk in third trimester (HCC) Unspecified high-risk documented in this encounter [facility] (narrative)No reason for referral information availableW[facility] Work Phone: Summary Purpose Family History No Family History Records FoundNo Family History Records FoundNo Family History Records Found Advance Directives No Advanced Directives Records Found Advance Directive Response Recorded Date/ Time Advance Directives No June 12:12pm Living Will No October 01, 2020 9 :16pm Power of Devulcanizer Head No October 01, 2020 9:16pm Advance Directive Response Recorded Date/ Time Advance Directives No June 11:12am Living Will No October 01, 2020 8 :16pm Power of Devulcanizer Head No October 01, 2020 8:16pm Advance Directive Response Recorded Date/ Time Do you have a Healthcare Power of Devulcanizer Head? No February 07, 2025 12:45pm Advance Directives No June 12:12pm Chief Complaint and Reason for Visit Chief Complaint LABSPEC Chief Complaint Admit Date R/O LABOR January 31, 2025 5:08am LABOR February 07, 2025 12:18pm Reason for Visit Admit Date 38 weeks gestation of [facility] 2024 5:08am Uterine contractions January 31 5:08am 39 weeks gestation of [facility] 2024 12:18pm Active labor at term February 07 12:18pm First degree perineal laceration [facility] 2024 12:18pm History of delivery February 072024 12:18pm Lactating mother February 07, 2025 12:18pm Positive GBS test February 07, 2025 12:18pm Rh negative state in antepartum period S eptember 2024 12:18pm Sickle cell trait February 07, 2025 12:18pm Vaginal delivery February 07, 2025 12:18pm Reason for Visit Admit Date 38 weeks gestation of [facility] 2024 5:08am Uterine contractions January 31 5:08am 39 weeks gestation of [facility] 2024 12:18pm Active labor at term February 07 12:18pm Care and examination of lactating mother February 07, 2025 12:18pm Elevated blood pressure read ing with diagnosis of hypertension February 07, 2025 12:18pm First degree perineal laceration [facility] 2024 12:18pm History of delivery February 072024 12:18pm Lactating mother February 07, 2025 12:18pm Positive GBS test February 07, 2025 12:18pm Rh negative state in antepartum period S eptember 2024 12:18pm Sickle cell trait February 07, 2025 12:18pm Vaginal delivery February 07, 2025 12:18pm Additional Source Comments INFORMATION SOURCE (unrecogn ized section and content) DATE CREATED AUTHOR 11/02/2018 [facility] ([place]) DATE CREATED AUTHOR AUTHOR'S ORGANIZ ATION 02/19/2025 [facility] DATE CREATED AUTHOR AUTHOR'S ORGANIZ ATION 02/23/2025 [facility] Goals (unrecognized section and content) Goals may be documented in a n alternate section Source Comments (unrecognize d section and content) In the event this informatio n is protected by the Federal Confidentiality of Alcohol and Drug Abuse Patient Records regulations: The Federal rules restrict any use of the information to criminally investigate or prosecute any alcohol or drug abuse patient.[facility] SystemIn the event this information is protected by the Federal Confidentiality of Alcohol and Drug Abuse Patient Records regulations: The Federal rules restrict any use of the information to criminally investigate or prosecute any alcohol or drug abuse patient.[facility] SystemIn the event this information is protected by the Federal Confidentiality of Alcohol and Drug Abuse Patient Records regulations: The Federal rules restrict any use of the information to criminally investigate or prosecute any alcohol or drug abuse patient.[facility] SystemIn the event this information is protected by the Federal Confidentiality of Alcohol and Drug Abuse Patient Records regulations: The Federal rules restrict any use of the information to criminally investigate or prosecute any alcohol or drug abuse patient.[facility] SystemIn the event this information is protected by the Federal Confidentiality of Alcohol and Drug Abuse Patient Records regulations: The Federal rules restrict any use of the information to criminally investigate or prosecute any alcohol or drug abuse patient.[facility] SystemIn the event this information is protected by the Federal Confidentiality of Alcohol and Drug Abuse Patient Records regulations: The Federal rules restrict any use of the information to criminally investigate or prosecute any alcohol or drug abuse patient.[facility] SystemIn the event this information is protected by the Federal Confidentiality of Alcohol and Drug Abuse Patient Records regulations: The Federal rules restrict any use of the information to criminally investigate or prosecute any alcohol or drug abuse patient.[facility] SystemIn the event this information is protected by the Federal Confidentiality of Alcohol and Drug Abuse Patient Records regulations: The Federal rules restrict any use of the information to criminally investigate or prosecute any alcohol or drug abuse patient.[facility] SystemIn the event this information is protected by the Federal Confidentiality of Alcohol and Drug Abuse Patient Records regulations: The Federal rules restrict any use of the information to criminally investigate or prosecute any alcohol or drug abuse patient.[facility] SystemIn the event this information is protected by the Federal Confidentiality of Alcohol and Drug Abuse Patient Records regulations: The Federal rules restrict any use of the information to criminally investigate or prosecute any alcohol or drug abuse patient.[facility] SystemIn the event this information is protected by the Federal Confidentiality of Alcohol and Drug Abuse Patient Records regulations: The Federal rules restrict any use of the information to criminally investigate or prosecute any alcohol or drug abuse patient.[facility] SystemIn the event this information is protected by the Federal Confidentiality of Alcohol and Drug Abuse Patient Records regulations: The Federal rules restrict any use of the information to criminally investigate or prosecute any alcohol or drug abuse patient.[facility] SystemIn the event this information is protected by the Federal Confidentiality of Alcohol and Drug Abuse Patient Records regulations: The Federal rules restrict any use of the information to criminally investigate or prosecute any alcohol or drug abuse patient.[facility] SystemIn the event this information is protected by the Federal Confidentiality of Alcohol and Drug Abuse Patient Records regulations: The Federal rules restrict any use of the information to criminally investigate or prosecute any alcohol or drug abuse patient.[facility] SystemIn the event this information is protected by the Federal Confidentiality of Alcohol and Drug Abuse Patient Records regulations: The Federal rules restrict any use of the information to criminally investigate or prosecute any alcohol or drug abuse patient.[facility] SystemIn the event this information is protected by the Federal Confidentiality of Alcohol and Drug Abuse Patient Records regulations: The Federal rules restrict any use of the information to criminally investigate or prosecute any alcohol or drug abuse patient.[facility] SystemIn the event this information is protected by the Federal Confidentiality of Alcohol and Drug Abuse Patient Records regulations: The Federal rules restrict any use of the information to criminally investigate or prosecute any alcohol or drug abuse patient.[facility] SystemIn the event this information is protected by the Federal Confidentiality of Alcohol and Drug Abuse Patient Records regulations: The Federal rules restrict any use of the information to criminally investigate or prosecute any alcohol or drug abuse patient.[facility] SystemIn the event this information is protected by the Federal Confidentiality of Alcohol and Drug Abuse Patient Records regulations: The Federal rules restrict any use of the information to criminally investigate or prosecute any alcohol or drug abuse patient.[facility] SystemIn the event this information is protected by the Federal Confidentiality of Alcohol and Drug Abuse Patient Records regulations: The Federal rules restrict any use of the information to criminally investigate or prosecute any alcohol or drug abuse patient.[facility] SystemIn the event this information is protected by the Federal Confidentiality of Alcohol and Drug Abuse Patient Records regulations: The Federal rules restrict any use of the information to criminally investigate or prosecute any alcohol or drug abuse patient.[facility] SystemIn the event this information is protected by the Federal Confidentiality of Alcohol and Drug Abuse Patient Records regulations: The Federal rules restrict any use of the information to criminally investigate or prosecute any alcohol or drug abuse patient.[facility] SystemIn the event this information is protected by the Federal Confidentiality of Alcohol and Drug Abuse Patient Records regulations: The Federal rules restrict any use of the information to criminally investigate or prosecute any alcohol or drug abuse patient.[facility] SystemIn the event this information is protected by the Federal Confidentiality of Alcohol and Drug Abuse Patient Records regulations: The Federal rules restrict any use of the information to criminally investigate or prosecute any alcohol or drug abuse patient.[facility] SystemIn the event this information is protected by the Federal Confidentiality of Alcohol and Drug Abuse Patient Records regulations: The Federal rules restrict any use of the information to criminally investigate or prosecute any alcohol or drug abuse patient.[facility] SystemIn the event this information is protected by the Federal Confidentiality of Alcohol and Drug Abuse Patient Records regulations: The Federal rules restrict any use of the information to criminally investigate or prosecute any alcohol or drug abuse patient.[facility] SystemIn the event this information is protected by the Federal Confidentiality of Alcohol and Drug Abuse Patient Records regulations: The Federal rules restrict any use of the information to criminally investigate or prosecute any alcohol or drug abuse patient.[facility] SystemIn the event this information is protected by the Federal Confidentiality of Alcohol and Drug Abuse Patient Records regulations: The Federal rules restrict any use of the information to criminally investigate or prosecute any alcohol or drug abuse patient.[facility] SystemIn the event this information is protected by the Federal Confidentiality of Alcohol and Drug Abuse Patient Records regulations: The Federal rules restrict any use of the information to criminally investigate or prosecute any alcohol or drug abuse patient.[facility] SystemIn the event this information is protected by the Federal Confidentiality of Alcohol and Drug Abuse Patient Records regulations: The Federal rules restrict any use of the information to criminally investigate or prosecute any alcohol or drug abuse patient.[facility] SystemIn the event this information is protected by the Federal Confidentiality of Alcohol and Drug Abuse Patient Records regulations: The Federal rules restrict any use of the information to criminally investigate or prosecute any alcohol or drug abuse patient.[facility] SystemIn the event this information is protected by the Federal Confidentiality of Alcohol and Drug Abuse Patient Records regulations: The Federal rules restrict any use of the information to criminally investigate or prosecute any alcohol or drug abuse patient.[facility] SystemIn the event this information is protected by the Federal Confidentiality of Alcohol and Drug Abuse Patient Records regulations: The Federal rules restrict any use of the information to criminally investigate or prosecute any alcohol or drug abuse patient.[facility] SystemIn the event this information is protected by the Federal Confidentiality of Alcohol and Drug Abuse Patient Records regulations: The Federal rules restrict any use of the information to criminally investigate or prosecute any alcohol or drug abuse patient.[facility] SystemIn the event this information is protected by the Federal Confidentiality of Alcohol and Drug Abuse Patient Records regulations: The Federal rules restrict any use of the information to criminally investigate or prosecute any alcohol or drug abuse patient.[facility] SystemIn the event this information is protected by the Federal Confidentiality of Alcohol and Drug Abuse Patient Records regulations: The Federal rules restrict any use of the information to criminally investigate or prosecute any alcohol or drug abuse patient.[facility] SystemIn the event this information is protected by the Federal Confidentiality of Alcohol and Drug Abuse Patient Records regulations: The Federal rules restrict any use of the information to criminally investigate or prosecute any alcohol or drug abuse patient.[facility] SystemIn the event this information is protected by the Federal Confidentiality of Alcohol and Drug Abuse Patient Records regulations: The Federal rules restrict any use of the information to criminally investigate or prosecute any alcohol or drug abuse patient.[facility] SystemIn the event this information is protected by the Federal Confidentiality of Alcohol and Drug Abuse Patient Records regulations: The Federal rules restrict any use of the information to criminally investigate or prosecute any alcohol or drug abuse patient.[facility] SystemIn the event this information is protected by the Federal Confidentiality of Alcohol and Drug Abuse Patient Records regulations: The Federal rules restrict any use of the information to criminally investigate or prosecute any alcohol or drug abuse patient.[facility] SystemIn the event this information is protected by the Federal Confidentiality of Alcohol and Drug Abuse Patient Records regulations: The Federal rules restrict any use of the information to criminally investigate or prosecute any alcohol or drug abuse patient.[facility] SystemIn the event this information is protected by the Federal Confidentiality of Alcohol and Drug Abuse Patient Records regulations: The Federal rules restrict any use of the information to criminally investigate or prosecute any alcohol or drug abuse patient.[facility] SystemIn the event this information is protected by the Federal Confidentiality of Alcohol and Drug Abuse Patient Records regulations: The Federal rules restrict any use of the information to criminally investigate or prosecute any alcohol or drug abuse patient.[facility] SystemIn the event this information is protected by the Federal Confidentiality of Alcohol and Drug Abuse Patient Records regulations: The Federal rules restrict any use of the information to criminally investigate or prosecute any alcohol or drug abuse patient.[facility] SystemIn the event this information is protected by the Federal Confidentiality of Alcohol and Drug Abuse Patient Records regulations: The Federal rules restrict any use of the information to criminally investigate or prosecute any alcohol or drug abuse patient.[facility] SystemIn the event this information is protected by the Federal Confidentiality of Alcohol and Drug Abuse Patient Records regulations: The Federal rules restrict any use of the information to criminally investigate or prosecute any alcohol or drug abuse patient.[facility] SystemIn the event this information is protected by the Federal Confidentiality of Alcohol and Drug Abuse Patient Records regulations: The Federal rules restrict any use of the information to criminally investigate or prosecute any alcohol or drug abuse patient.[facility] SystemIn the event this information is protected by the Federal Confidentiality of Alcohol and Drug Abuse Patient Records regulations: The Federal rules restrict any use of the information to criminally investigate or prosecute any alcohol or drug abuse patient.[facility] SystemIn the event this information is protected by the Federal Confidentiality of Alcohol and Drug Abuse Patient Records regulations: The Federal rules restrict any use of the information to criminally investigate or prosecute any alcohol or drug abuse patient.[facility] SystemIn the event this information is protected by the Federal Confidentiality of Alcohol and Drug Abuse Patient Records regulations: The Federal rules restrict any use of the information to criminally investigate or prosecute any alcohol or drug abuse patient.[facility] SystemIn the event this information is protected by the Federal Confidentiality of Alcohol and Drug Abuse Patient Records regulations: The Federal rules restrict any use of the information to criminally investigate or prosecute any alcohol or drug abuse patient.[facility] SystemIn the event this information is protected by the Federal Confidentiality of Alcohol and Drug Abuse Patient Records regulations: The Federal rules restrict any use of the information to criminally investigate or prosecute any alcohol or drug abuse patient.[facility] SystemIn the event this information is protected by the Federal Confidentiality of Alcohol and Drug Abuse Patient Records regulations: The Federal rules restrict any use of the information to criminally investigate or prosecute any alcohol or drug abuse patient.[facility] SystemIn the event this information is protected by the Federal Confidentiality of Alcohol and Drug Abuse Patient Records regulations: The Federal rules restrict any use of the information to criminally investigate or prosecute any alcohol or drug abuse patient.[facility] SystemIn the event this information is protected by the Federal Confidentiality of Alcohol and Drug Abuse Patient Records regulations: The Federal rules restrict any use of the information to criminally investigate or prosecute any alcohol or drug abuse patient.[facility] SystemIn the event this information is protected by the Federal Confidentiality of Alcohol and Drug Abuse Patient Records regulations: The Federal rules restrict any use of the information to criminally investigate or prosecute any alcohol or drug abuse patient.[facility] Reason for Visit (unrecogniz ed section and content) Reason Onset Date Comments Care 09/14/2024 Specialty Diagnoses / Procedures Referred By Contac t Referred To Contact [facility] Diagnoses 16 weeks gestation of (HCC) History of delivery Procedures OBSTETRIC ULTRASOUND WHI US PREG UTERUS AFTER 1ST TRIMEST GESTATION Jose Soto MD [address] [place] [address] Phone: tel: fax: [facility] [address] [place] [address] Referral ID Status Reason Start Date Expiration Date V isits Requested Visits Authorized [id number] Closed Auto-Generate d Referral 08/31/2024 08/31/2025 4 1 Reason Comments STD Pt reported + std ex posure, vaginal discharge , odor. Reason Comments Results Reason Comments Information Reason Comments Vaginal Discharge after getting a biop sy 1 month ago Reason Comments Medication Problem BV Reason Comments Vaginal Problem Vaginal itching x 2 weeks Reason Comments Results Wants a second opini on for a Provider. Reason Comments STD And urine problems x 2 weeks Reason Comments Vaginal Problem odor x 2 days Reason Comments Vaginal Problem Itching, discharge, possible smell, std testing to be sure x 1 week + Reason Comments Vaginal Problem Reason Comments Patient Update Reason Onset Date Comments Refill Request 04/27/2024 Reason Comments Problem Visit Reason Comments Vaginal Discharge Possible yeast infec tion, itching Reason Comments Patient Question Reason Onset Date Comments Results 06/20/2024 Reason Comments Initial OB Visit Reason Comments PRAF Reason Onset Date Comments Results 06/29/2024 Reason Comments Spotting early Reason Onset Date Comments Care 07/31/2024 Reason Comments US Specialty Diagnoses / Procedures Referred By Contac t Referred To Contact [facility] Diagnoses Encounter for supervision of high risk in first trimester, antepartum 6 weeks gestation of Procedures OBSTETRIC ULTRASOUND WHI US PREG UTERUS AFTER 1ST TRIMEST GESTATION James Zamora, ROSANA.PUBLIC HEALTH EPIDEMIOLOGIST [address] [place] [address] Phone: tel: fax: [facility] [address] [place] [address] Referral ID Status Reason Start Date Expiration Date V isits Requested Visits Authorized [id number] Closed Auto-Generate d Referral 06/26/2024 06/26/2025 1 1 Specialty Diagnoses / Procedures Referred By Contac t Referred To Contact [facility] Diagnoses History of labor Procedures OBSTETRIC ULTRASOUND WHI US PREG UTERUS AFTER 1ST TRIMEST GESTATION Geo Marie MD [address] [place] [address] Phone: tel: fax: [address] [address] Referral ID Status Reason Start Date Expiration Date V isits Requested Visits Authorized [id number] Closed Auto-Generate d Referral 07/31/2024 07/31/2025 1 1 Reason Onset Date Comments Care 08/31/2024 Reason Onset Date Comments Care 09/25/2024 Specialty Diagnoses / Procedures Referred By Contac t Referred To Contact [facility] Diagnoses Encounter for supervision of high risk in first trimester, antepartum (HCC) 6 weeks gestation of (HCC) Procedures OBSTETRIC ULTRASOUND WHI US PREG UTERUS AFTER 1ST TRIMEST GESTATION James Zamora APRN.PUBLIC HEALTH EPIDEMIOLOGIST [address] [place] [address] Phone: tel: fax: [address] [phone] Referral ID Status Reason Start Date Expiration Date V isits Requested Visits Authorized [id number] Closed Auto-Generate d Referral 06/26/2024 06/26/2025 1 1 Reason Onset Date Comments Care 10/23/2024 Reason Onset Date Comments Care 11/20/2024 Reason Onset Date Comments Care 12/03/2024 Reason Comments Letter for Dentist Reason Comments Orders Reason Onset Date Comments Care 12/31/2024 Reason Comments DME Orders Reason Onset Date Comments Care 01/15/2025 Reason Onset Date Comments Care 01/18/2025 Reason Onset Date Comments Care 01/25/2025 Care Teams (unrecognized sec tion and content) [employer] Relationship Specialty Start Date End Date Angeline Valderrama MD [address] [place], [place] [id number] PCP - General Family Medicine 08/25/22 [employer] Relationship Specialty Start Date End Date Angeline Valderrama MD [address] [place] [address] PCP - General Family Medicine 08/25/22 [employer] Relationship Specialty Start Date End Date Angeline Valderrama MD [address] [place], [place] [id number] PCP - General Family Medicine 08/25/22 Team Status: Active Member Role Status Dates Dr. Ethan Valderrama MD Family Provider Active Dr. Damian Major MD Primary Care Provider Active Team Status: Inactive Member Role Status Dates Dr. Damian Major MD Primary Care Provider Active Dr. Cynthia Mayers MD Attending Provider Active [employer] Relationship Specialty Start Date End Date Angeline Valderrama MD [address] [place] [address] PCP - General Family Medicine 08/25/22 [employer] Relationship Specialty Start Date End Date Angeline Valderrama MD [address] [place] [address] PCP - General Family Medicine 08/25/22 Team Status: Inactive Member Role Status Dates Dr. Damian Major MD Primary Care Provider Active Dr. Ethan Valderrama MD Attending Provider Active [employer] Relationship Specialty Start Date End Date Angeline Valderrama MD [address] [place] [address] PCP - General Family Medicine 08/25/22 [employer] Relationship Specialty Start Date End Date nAgeline Valderrama MD [address] [place] [address] PCP - General Family Medicine 08/25/22 [employer] Relationship Specialty Start Date End Date Angeline Valderrama MD [address] [place] [address] PCP - General Family Medicine 08/25/22 Team Status: Inactive Member Role Status Dates Dr. Damian Major MD Primary Care Provider, Attending Darek owen Active [employer] Relationship Specialty Start Date End Date Angeline Valderrama MD [address] [place] [address] PCP - General Family Medicine 08/25/22 [employer] Relationship Specialty Start Date End Date Angeline Valderrama MD [address] [place] [address] PCP - General Family Medicine 08/25/22 [employer] Relationship Specialty Start Date End Date Angeline Valderrama MD [address] [place] [address] PCP - General Family Medicine 08/25/22 [employer] Relationship Specialty Start Date End Date Angeline Valderrama MD [address] [place] [address] PCP - General Family Medicine 08/25/22 [employer] Relationship Specialty Start Date End Date Angeline Valderrama MD [address] [place] [address] PCP - General Family Medicine 08/25/22 [employer] Relationship Specialty Start Date End Date Angeline Valderrama MD [address] [place] [address] PCP - General Family Medicine 08/25/22 [employer] Relationship Specialty Start Date End Date Angeline Valderrama MD [address] [place] [address] PCP - General Family Medicine 08/25/22 [employer] Relationship Specialty Start Date End Date Angeline Valderrama MD [address] [place] [address] PCP - General Family Medicine 08/25/22 [employer] Relationship Specialty Start Date End Date Angeline Valderrama MD [address] [place] [address] PCP - General Family Medicine 08/25/22 [employer] Relationship Specialty Start Date End Date Angeline Valderrama MD [address] [place] [address] PCP - General Family Medicine 08/25/22 [employer] Relationship Specialty Start Date End Date Angeline Valderrama MD [address] [place] [address] PCP - General Family Medicine 08/25/22 [employer] Relationship Specialty Start Date End Date Angeline Valderrama MD [address] [place] [address] PCP - General Family Medicine 08/25/22 [employer] Relationship Specialty Start Date End Date Angeline Valderrama MD [address] [place] [address] PCP - General Family Medicine 08/25/22 [employer] Relationship Specialty Start Date End Date Angeline Valderrama MD [address] [place] [address] PCP - General Family Medicine 08/25/22 [employer] Relationship Specialty Start Date End Date Angeline Valderrama MD [address] [place] [address] PCP - General Family Medicine 08/25/22 [employer] Relationship Specialty Start Date End Date Angeline Valderrama MD [address] [place] [address] PCP - General Family Medicine 08/25/22 [employer] Relationship Specialty Start Date End Date Angeline Valderrama MD [address] [place] [address] PCP - General Family Medicine 08/25/22 [employer] Relationship Specialty Start Date End Date Angeline Valderrama MD [address] [place] [address] PCP - General Family Medicine 08/25/22 [employer] Relationship Specialty Start Date End Date Angeline Valderrama MD [address] [place] [address] PCP - General Family Medicine 08/25/22 [employer] Relationship Specialty Start Date End Date Angeline Valderrama MD [address] [place] [address] PCP - General Family Medicine 08/25/22 [employer] Relationship Specialty Start Date End Date Angeline Valderrama MD [address] [place] [address] PCP - General Family Medicine 08/25/22 [employer] Relationship Specialty Start Date End Date Angeline Valderrama MD [address] [place] [address] PCP - General Family Medicine 08/25/22 [employer] Relationship Specialty Start Date End Date Angeline Valderrama MD [address] [place] [address] PCP - General Family Medicine 08/25/22 [employer] Relationship Specialty Start Date End Date Angeline Valderrama MD [address] [place] [address] PCP - General Family Medicine 08/25/22 [employer] Relationship Specialty Start Date End Date Angeline Valderrama MD [address] [place] [address] PCP - General Family Medicine 08/25/22 [employer] Relationship Specialty Start Date End Date Angeline Valderrama MD [address] [place] [address] PCP - General Family Medicine 08/25/22 [employer] Relationship Specialty Start Date End Date Angeline Valderrama MD [address] [place] [address] PCP - General Family Medicine 08/25/22 [employer] Relationship Specialty Start Date End Date Angeline Valderrama MD [address] [place] [address] PCP - General Family Medicine 08/25/22 [employer] Relationship Specialty Start Date End Date Angeline Valderrama MD [address] [place] [address] PCP - General Family Medicine 08/25/22 Team Status: Active Member Role/Relationship Status Dates Dr. Angeline Valderrama MD Primary care physician Act fany Team Status: Inactive Member Role/Relationship Status Dates Dr. Angeline Valderrama MD Primary care physician Act f[employer] Start: January 31, 2025 End: January 31, 2025 Dr. Grisel Shen MD Attending physician Active Start: January 31, 2025 End: January 31, 2025 Team Status: Active Member Role/Relationship Status Dates Dr. Angeline Valderrama MD Primary care physician Act fany Start: February 07, 2025 Wendy Le CNM Admitting physician Active S tart: February 07, 2025 Wendy Le CNM Attending physician Active S tart: February 07, 2025 Team Status: Inactive Member Role/Relationship Status Dates Dr. Angeline Valderrama MD Primary care physician Act fany Start: February 07, 2025 End: February 10, 2025 Wendy Le CNM Admitting physician Active S tart: February 07, 2025 End: February 10, 2025 Wendy Le CNM Attending physician Active S tart: February 07, 2025 End: February 10, 2025 FOR RECORDS PERTAINING TO PATIENTS WHO ARE [...] BE BASED ON THE PRIMARY CLINICAL RECORDS. [employer] provides no warranty or guarantee of the accuracy or completeness of information in this document.
[2025-02-27 22:42] VITALS: BMI 23.7
[2025-02-27 23:04] VITALS: BP 154/104; PULSE 69
[2025-02-27 23:21] VITALS: BP 172/103; PULSE 67
[2025-02-27 23:41] LABS: Hematocrit 36.1 % (37-47); Hemoglobin 12.2 g/dL (12.0-15.0); Mean Corp Hgb Conc 33.8 g/dL (32-36); Mean Corpuscular Volume 78.1 fL (81-99); Mean Platelet Vol. 10.0 fl (6.2-12.0); Platelet Count 404 K/mm3 (150-450); RBC Distribution Width CV 16.2 % (11.6-14.6); RBC Distribution Width SD 46.3 fl (35.1-43.9); Red Blood Count 4.62 M/mm3 (4.2-5.4); White Blood Count 10.1 K/mm3 (4.4-11.0)
[2025-02-27 23:49] VITALS: BP 118/73; PULSE 99
[2025-02-27] MEDS: NIFEdipine 30 MG Tablet PO (23:53)
[2025-02-28 00:04] VITALS: BP 119/80; PULSE 90
[2025-02-28 00:10] LABS: AST(SGOT) 28 U/L (<=31); Alanine Aminotransfer ALT/SGPT 18 U/L (<=34); Estimated Creatinine Clearance 84.56 ml/min (50-250); Uric Acid 3.7 mg/dL (2.6-6.0)
[2025-02-28 00:14] VITALS: BP 121/83; PULSE 90
--- NOTE | 2025-03-19 20:28 | OB.TRI.NOTE ---
HPI - General General Date of Service: 03/02/25 HPI Narrative MARLON GRANGER, is a 30 F who presents with elevated blood pressure in the PP period. Maternal Data Information [employer] Calculator Estimated Delivery Date Method Current WG Current Estimate 02/13/25 Manual 44w 6d PFSH PFS Medical History (Updated 03/19/25 @ 20:[address] Leoncio Price MD) Care and examination of lactating mother Elevated blood pressure reading with diagnosis of hypertension Lactating mother First degree perineal laceration Sickle cell trait Rh negative state in antepartum period History of delivery Positive GBS test 39 weeks gestation of Active labor at term HPV (human papilloma virus) infection Chlamydia infection affecting History of pre-term labor Home Medications Medication Instructions Recorded Last Taken Type vit no.95-ferrous 1 tab PO DAILY 02/07/25 02/06/25 21:00 History fumarate 28 mg-folic acid 800 mcg 1 TAB tablet () acetaminophen 500 mg tablet 1,000 mg (2 x 500 mg) PO Q6H PRN 02/09/25 Unknown Rx PRN Pain 1-10 Or Fever #0 tabs ibuprofen 600 mg tablet 600 mg PO Q6H PRN PRN Pain Score 02/09/25 Unknown Rx 1-10 #0 tabs labetalol 200 mg tablet 200 mg PO TID #90 tabs 02/10/25 Unknown Rx Allergy/AdvReac Type Severity Reaction Status Date / Time Penicillins Allergy Unknown Verified 02/07/25 12:43 Social History Smoking Status: Current every day smoker tobacco type: e-cigarettes History 2 Elective abortions Hx Para 1 Spontaneous abortions Hx # Term Pregnancies Ectopic pregnancies Hx # Pregnancies Multiple births # of living children Assessment & Plan (1) Gestational hypertension: QUALIFIERS: Trimester: third trimester Qualified Code(s): O13.3 - Gestational [-induced] hypertension without significant proteinuria, third trimester PLAN: Plan Procardia given and BP controlled. Advised to folliw up in office as patient strongly desired discharge.
== END 2025-02-28 00:32 | disposition home or self-care (01) ==
LOC: WPOUT 22:37 → WP 22:37
PROVIDERS: Obstetrics & Gynecology; PCP Family Medicine; Referring Provider Advanced Practice Midwife; Visit Provider Advanced Practice Midwife
DX: O13.3 Gestational [pregnancy-induced] hypertension without significant proteinuria, third trimester (principal); F17.290 Nicotine dependence, other tobacco product, uncomplicated; O99.333 Smoking (tobacco) complicating pregnancy, third trimester; Z3A.39 39 weeks gestation of pregnancy; Z79.82 Long term (current) use of aspirin
CPT/HCPCS: 36415; 82565; 84450; 84460; 84550; 85027; 99221; G0378